=== PATIENT | female | born 1980 | race Caucasian/White ===

== ENCOUNTER 2024-01-19 20:26 | Outpatient (REF) | payer MEDICAID, SELFPAY ==
[2024-01-25 11:09] LABS: Age Gdln ACOG Testing Note (.); HPV Aptima Negative (Negative); IGP, Aptima HPV, rfx 16/18,45 Note (.)
== END 2024-01-19 20:27 | disposition home or self-care (01) ==
LOC: LAB 20:26
PROVIDERS: PCP Family Medicine; Visit Provider Obstetrics & Gynecology
DX: Z01.419 Encounter for gynecological examination (general) (routine) without abnormal findings (principal)
CPT/HCPCS: 87624; G0145

== ENCOUNTER 2025-01-24 21:15 | Outpatient (REF) | payer MEDICAID, SELFPAY ==
--- OUTSIDE RECORDS SUMMARY | 2025-01-24 21:20 | XMS_ITS | CCD ---
Author Organization [facility] Care Team Providers Care Security Operations Manager Name Role Phone Unavailable Primary Care Provider UnavailBeck Sheehan Jr. Primary Care Provider Bill Yusuf Unavailable Yared Pisano Unavailable DO Vanna Tee Primary Care Provider CHRISTOPH Baird Attending Provider [phone] Vanna Tee Primary Care Unavailable Jacki Baird Attending Unavailable Jacki Baird Admitting Unavailable Bill Yusuf Admitting Unavailable Vanna Tee Primary Care Unavailable Bill Yusuf Attending Unavailable Vanna Tee Primary Care Unavailable Bill Yusuf Attending Unavailable Bill Yusuf Admitting Unavailable DR Bryce TEE Primary Care Unavailable GIBRAN VALERIO Admnemo Unavailable GIBRAN VALERIO Attending Unavailable GIBRAN VALERIO Consulting Unavailable NAN VILLAGRAN Consulting Unavailable Beck Tee Jr. Primary Care Provider Jacki Baird CNP Unavailable Jacki Baird CNP Unavailable Randal Ruiz DO, George Robert Primary Care Provi anshul Randal Ruiz DO, George Robert Primary Care Provi anshul Beck Tee DO Primary Care Provider Jacki Baird CNP Unavailable Antoni Palmer Unavailable [phone] YURIY PACK Attending Unavailable BECK TEE JR Primary Care Unavail able JOSE ARMANDO STERLING Admitting Unavailable MAK MARTINEZ Consulting Unavailable BECK TEE JR Primary Care Unavail able DERIC WILSON Referring Unavailable JERED MONTGOMERY Attending Unavailable MAK MARTINEZ Attending Unavailable RANDAL KAY, BECK RUVALCABA Primary Care Unavail able DILMA MONTES Attending Unavailable BECK TEE JR JORDON Referring Unavail able RANDAL KAY, BECK RUVALCABA Primary Care Unavail able RANDAL KAY, BECK RUVALCABA Primary Care Unavail able SADGLENN, MAK Referring Unavailable RANDAL KAY, BECK RUVALCABA Primary Care Unavail able DILMA MONTES Referring Unavailable RANDAL KAY, BECK RUVALCABA Primary Care Unavail able SADGLENN, MAK Referring Unavailable KABOB KAY, BECK RUVALCABA Primary Care Unavail able RANDAL KAY, BECK RUVALCABA Primary Care Unavail able ORLANDO TORRES Attending Unavailable MICHELLE, MAK Referring Unavailable RANDAL KAY, BECK RUVALCABA Primary Care Unavail able SONIA JC Attending Unavailable MICHELLE, MAK Referring Unavailable RANDAL KAY, BECK RUVALCABA Primary Care Unavail able RANDAL KAY, BECK RUVALCABA Primary Care Unavail able MICHELLE, MAK Referring Unavailable RANDAL KAY, BECK RUVALCABA Primary Care Unavail able DILMA MONTES Referring Unavailable RANDAL KAY, BECK RUVALCABA Primary Care Unavail able DILMA MONTES Referring Unavailable RANDAL KAY, BECK RUVALCABA Primary Care Unavail able RANDAL KAY, BECK RUVALCABA Primary Care Unavail able RANDAL KAY, BECK RUVALCABA Primary Care Unavail able MICHELLE, MAK Referring Unavailable RANDAL KAY, BECK RUVALCABA Primary Care Unavail able RANDAL KAY, BECK RUVALCABA Primary Care Unavail able RANDAL KAY, BECK RUVALCABA Primary Care Unavail able MAK MARTINEZ Attending Unavailable MICHELLE, MAK Referring Unavailable RANDAL KAY, BECK RUVALCABA Primary Care Unavail able ARLIN HASTINGS Attending Unavailable MATHIEU PROCTOR Attending Unavailable BECK TEE Attending Unavailable BECK TEE Referring Unavailable BECK TEE Attending Unavailable Medications Current Medications Medication Drug Class(es) Dates Sig (Normalized) Sig (Original) acyclovir 800 mg oral tablet (1 source) Herpesvirus Nucleoside Analog DNA Polymerase Inhibitor, Herpes Simplex Virus Nucleoside Analog DNA Polymerase Inhibitor, Herpes Zoster Virus Nucleoside Analog DNA Polymerase Inhibitor Start: 04-24-2024 take 800 mg by mouth five times daily Acyclovir Active 800 MG PO Five times daily 35 7 April 24, 2024 12:00am space evenly during waking hours budesonide 3 mg delayed release oral capsule (18 sources) Corticosteroid Start: 09-27-2021 take 9 mg by mouth once daily Budesonide Active 9 MG PO Daily September 27, 2021 12:00am Start: 09-11-2021 take 3 capsules by m outh once daily Budesonide 3 MG 3 capsules daiily Orally Once a day for 30 days Aug, Active Comment on above: Take 9 mg by mouth o nce daily. clonazePAM 0.5 mg oral tablet (20 sources) Benzodiazepine Start: End: take 1 tablet by mouth twice daily as needed for anxiety clonazePAM (KlonoPIN) 0.5 MG tablet Indications: Anxiety Take 1 tablet (0.5 mg) by mouth 2 (two) times a day as needed for anxiety for up to 10 days 20 tablet 01/14/2025 01/24/2025 Active Start: 11-01-2024 End: 11-26-2024 take 1 tablet by mouth twice daily as needed for anxiety clonazePAM (KlonoPIN) 0.5 MG tablet Indications: Anxiety Take 1 tablet (0.5 mg) by mouth 2 (two) times a day as needed for anxiety for up to 10 days 20 tablet 11/16/2024 11/26/2024 Active Start: 07-16-2024 End: 10-30-2024 take 1 tablet by mouth twice daily as needed for anxiety clonazePAM (KlonoPIN) 0.5 MG tablet Indications: Anxiety Take 1 tablet (0.5 mg) by mouth 2 (two) times a day as needed for anxiety for up to 10 days 20 tablet 08/20/2024 08/30/2024 Active Start: 04-24-2024 Clonazepam Act gene MG PO April 24, 2024 12:00am Comment on above: Take 0.5 mg by mouth twice daily as needed. cyclobenzaprine hydrochloride 10 mg oral tablet (20 sources) Muscle Relaxant Start: 023 End: 025 take 1 tablet by mouth in the morning, then take 1 tablet by mouth in the evening, then take 1 tablet by mouth at bedtime cyclobenzaprine (Flexeril) 10 MG tablet Indications: Migraine without aura and without status migrainosus, not intractable (CMS/HCC) , Cervicalgia Take 1 tablet (10 mg) by mouth in the morning and 1 tablet (10 mg) in the evening and 1 tablet (10 mg) before bedtime. 40 tablet 1 12/29/2024 Active 24 hr desvenlafaxine succinate 50 mg extended release oral tablet (20 sources) Serotonin and Norepinephrine Reuptake Inhibitor Start: take 2 tablets by mouth once daily desvenlafaxine (Pristiq) 50 MG 24 hr tablet Indications: Anxiety Take 2 tablets (100 mg) by mouth Daily 60 tablet 5 01/07/2025 Active Start: 01-07-2025 take 2 tablets by mo uth once daily desvenlafaxine (Pristiq) 50 MG 24 hr tablet Indications: Anxiety Take 2 tablets (100 mg) by mouth Daily 60 tablet 5 01/07/2025 Active Start: 08-20-2024 End: 08-20-2025 take 1 tablet by mouth once daily desvenlafaxine (Pristiq) 100 MG 24 hr tablet Indications: Anxiety Take 1 tablet (100 mg) by mouth Daily Do not crush, chew, or split. 30 tablet 5 08/20/2024 01/07/2025 Discontinued Start: 04-24-2024 Desvenlafaxine Succinate Active MG PO April 24, 2024 12:00am Start: 04-06-2024 End: 04-06-2025 take 1 tablet by mouth once daily desvenlafaxine (Pristiq) 50 MG 24 hr tablet Take 50 mg by mouth Daily 09/29/2024 01/07/2025 Discontinued ferrous sulfate (16 sources) Start: 09-11-2021 take 1 tablet by monica twice daily Ferrous Sulfate 325 (65 Fe) MG 1 tablet Orally bid for 30 day(s) Aug, Active Start: 09-11-2021 take 1 tablet by monica twice daily FEROSUL 325 mg (65 mg iron) tablet Take 1 tablet by mouth twice daily. 0 09/11/2021 Active Start: 09-11-2021 take 1 tablet by monica th every twelve hours Ferrous Sulfate 325 (65 Fe) MG 1 tablet Orally bid for 30 day(s) Aug, Active Comment on above: Take 1 tablet by monica twice daily. fluticasone propionate 0.05 mg/actuat metered dose nasal spray (20 sources) Corticosteroid Start: End: take 2 spray(s) nasal route once daily fluticasone (Flonase) 50 MCG/ACT nasal spray Indications: Frontal sinusitis, unspecified chronicity Administer 2 sprays into each nostril Daily Shake gently. Before first use, prime pump. After use, clean tip and replace cap. 16 g 11 08/20/2024 08/20/2025 Active Start: 08-13-2023 End: 08-20-2024 take 2 spray(s) nasal route in the morning fluticasone (Flonase) 50 MCG/ACT nasal spray Indications: Frontal sinusitis, unspecified chronicity Administer 2 sprays into each nostril in the morning. Shake gently. Before first use, prime pump. After use, clean tip and replace cap.. 16 g 08/13/2023 08/20/2024 Discontinued (Reorder) hydrOXYzine hydrochloride 25 mg oral tablet (3 sources) Antihistamine Start: 01-07-2025 hydrOXYzine HC l (Atarax) 25 MG tablet Indications: Psychophysiological insomnia Take 1 tablet (25 mg) by mouth in the morning and 1 tablet (25 mg) at noon and 1 tablet (25 mg) in the evening and 1 tablet (25 mg) before bedtime. 50 tablet 3 01/07/2025 Active Start: 01-07-2025 hydrOXYzine HC l (Atarax) 25 MG tablet Indications: Psychophysiological insomnia Take 1 tablet (25 mg) by mouth in the morning and 1 tablet (25 mg) at noon and 1 tablet (25 mg) in the evening and 1 tablet (25 mg) before bedtime. 50 tablet 3 01/07/2025 Active ibuprofen 800 mg oral tablet (20 sources) Nonsteroidal Anti-inflammatory Drug Start: 06-14-2024 take 1 tablet by mouth three times daily as needed for pain ibuprofen 800 MG tablet Indications: Ulcerative colitis with complication, unspecified location (CMS/HCC) , Migraine without aura and without status migrainosus, not intractable (CMS/HCC) , Cervicalgia Take 1 tablet (800 mg) by mouth 3 (three) times a day as needed for mild pain, moderate pain or headaches 40 tablet 1 06/14/2024 Active Start: 04-24-2024 Ibuprofen Acti ve MG PO April 24, 2024 12:00am methylPREDNISolone (4 sources) Corticosteroid Start: 08-20-2024 End: 08-27-2024 methylPREDNISolone (Medrol Dospak) 4 MG tablets Indications: Crohn's disease, unspecified, without complications (CMS/HCC) Follow schedule on package instructions 21 tablet 08/20/2024 08/27/2024 Active Start: 02-28-2019 End: 03-17-2019 take 1 tablet by mouth once Methylprednisolone (Medrol (Ab)) 4 mg tablets,dose pack Discontinued 0 PO per package directions February 28, 2019 12:00am March 17, 2019 12:44pm PO PER PKG DIR ozanimod 0.92 mg oral capsule (5 sources) Start: 05-31-2022 take 1 capsule by mouth every twenty-four hours Zeposia 0.92 MG 1 capsule Orally Once a day for 30 days PA ON FILE FROM 05/21/22 TO 05/21/23 AUTH # [id number] May, Active predniSONE 20 mg oral tablet (20 sources) Start: 10-01-2024 take 1 tablet by monica th in the morning predniSONE (Deltasone) 20 MG tablet Take 20 mg by mouth in the morning and 20 mg before bedtime. 10/01/2024 Active Start: 10-01-2024 End: 10-31-2024 take 2 tablets by mouth once daily after breakfast predniSONE (DELTASONE) 20 mg tablet Take 2 tablets by mouth daily after breakfast. 60 tablet 10/01/2024 10/31/2024 Start: 05-21-2024 End: 09-10-2024 take 2 tablets by mouth once daily predniSONE (DELTASONE) 10 mg tablet Indications: Ulcerative pancolitis without complication (HCC) Take 2 tablets by mouth once daily. 60 tablet 4 09/10/2024 Active Start: 04-24-2024 Prednisone Act gene MG PO April 24, 2024 12:00am Start: 12-23-2023 End: 06-05-2024 take 1 tablet by mouth once daily predniSONE (Deltasone) 10 MG tablet Take 10 mg by mouth Daily 03/11/2024 Active Start: 05-15-2023 End: 08-11-2023 take 6 tablets by mouth once daily, then take 5 tablets by mouth once daily, then take 4 tablets by mouth once daily, then take 3 tablets by mouth once daily, then take 2 tablets by mouth once daily predniSONE (DELTASONE) 5 mg tablet Take 6 tablets by mouth once daily for 7 days, THEN 5 tablets once daily for 7 days, THEN 4 tablets once daily for 60 days, THEN 3 tablets once daily for 7 days, THEN 2 tablets once daily for 7 days. 352 tablet 0 05/15/2023 08/11/2023 Active Start: 04-05-2023 predniSONE (DE LTASONE) 10 mg tablet Take 4 tablets by mouth daily for 7 days, then 3 & 1/2 tablets for 7 days, then 3 tablets or 7 days, then 2 & 1/2 tablets for 7 days, then 2 tablets for 7 days, then 1 & 1/2 tablets for 7 days, then 1 tablet for 7 days, then 1/2 tablet for 7 days, then stop. 136 tablet 0 04/05/2023 Active Start: 08-07-2021 End: 09-27-2021 Prednisone Discontinued 20 M G PO Daily 60 August 07, 2021 12:00am September 27, 2021 8:47am please take 3 tabs for a week then 2 tabs for a week then one tab for a week and then half a tab for a week and then stop Start: 06-05-2019 End: 06-09-2020 take 60 mg by mouth once daily Prednisone Discontinued 60 MG PO Daily June 05, 2019 10:25pm June 09, 2020 4:22pm Start: 03-17-2019 End: 06-05-2019 Prednisone Discontinued 10 M G PO .other 36 March 17, 2019 12:00am June 05, 2019 10:26pm Taper: 8 tabs daily, then 7 tabs, then 6 tabs, then 5 tabs, then 4 tabs, then 3 tabs, then 2 tabs, then 1 tab, then stop Comment on above: Take 4 tablets by mo uth daily for 7 days, then 3 & 1/2 tablets for 7 days, then 3 tablets or 7 days, then 2 & 1/2 tablets for 7 days, then 2 tablets for 7 days, then 1 & 1/2 tablets for 7 days, then 1 tablet for 7 days, then 1/2 tablet for 7 days, then stop. Take 6 tablets by mo uth once daily for 7 days, THEN 5 tablets once daily for 7 days, THEN 4 tablets once daily for 60 days, THEN 3 tablets once daily for 7 days, THEN 2 tablets once daily for 7 days. Take 1 tablet by monica th once daily. risankizumab-rzaa (SKYRIZI) 360 mg/2.4 mL (150 mg/mL) wearable injector (20 sources) Start: 09-06-2024 risankizumab-rzaa (SKYRIZI) 360 mg/2.4 mL (150 mg/mL) wearable injector Indications: Ulcerative pancolitis without complication (HCC) Inject 360 mg subcutaneously every 8 weeks. 2.4 mL 5 09/06/2024 Active Start: 09-06-2024 risankizumab-r zaa (SKYRIZI) 360 mg/2.4 mL (150 mg/mL) wearable injector Indications: Ulcerative pancolitis without complication (HCC) Inject 360 mg subcutaneously every 8 weeks. First dose at week 12, then every 8 weeks after that. 2.4 mL 5 09/06/2024 Active Risankizumab-rzaa (Skyrizi) 360 MG/2.4ML solution cartridge (11 sources) Start: 09-06-2024 Risankizumab-r zaa (Skyrizi) 360 MG/2.4ML solution cartridge Inject 360 mg under the skin every 8 (eight) weeks 09/06/2024 Active ubrogepant 100 mg oral tablet (20 sources) Start: 03-21-2023 End: 05-21-2024 Ubrogepant (Ubrelvy) 100 MG tablet Indications: Migraine without aura and without status migrainosus, not intractable (CMS/HCC) Take 1 tablet by mouth 1 (one) time each day at the same time 1 tab may take second dose at least 2 hrs after first dose as needed 12/12/2023 Active Comment on above: TAKE 1 TABLET BY MONICA TH MAY TAKE 2ND DOSE AT LEAST 2 HOURS AFTER NEEDED ONCE DAILY 1 ml ustekinumab 90 mg/ml prefilled syringe (13 sources) Interleukin-12 Antagonist, Interleukin-23 Antagonist Start: 11-20-2021 Stelara 90 MG/ML INJ ECT 90 MG Subcutaneous EVERY 56 DAYS for 56 days PRIOR AUTH NUMBER [id number] GOOD UNTIL 11/15/22 Oct, Active Start: 11-20-2021 STELARA 90 mg/ mL injection Start: 10-15-2021 End: 04-24-2024 Ustekinumab (Stelara) 45 mg/ 0.5 mL Solution Discontinued 90 MG SUBCUT EVERY 8 WEEKS October 15, 2021 1:00am April 24, 2024 1:34pm valGANciclovir 450 mg oral tablet (4 sources) Start: 11-03-2024 End: 12-01-2024 take 2 tablets by mouth twice daily valGANciclovir (VALCYTE) 450 mg tablet Take 2 tablets by mouth two times a day for 28 days. 56 tablet 1 11/03/2024 12/01/2024 Active Start: 10-08-2024 End: 10-22-2024 take 2 tablets by mouth twice daily valGANciclovir (VALCYTE) 450 mg tablet Indications: CMV colitis (HCC) Take 2 tablets by mouth two times a day for 14 days. 56 tablet 10/08/2024 10/22/2024 vancomycin oral liquid 25 mg/mL (CPD) (2 sources) Start: 04-03-2023 End: 04-16-2023 take 5 mL by mouth four times daily vancomycin oral liquid 25 mg/mL (CPD) Take 5 mL by mouth four times daily for 11 days. Discard remainder 240 mL 0 04/03/2023 04/16/2023 Active Comment on above: Take 5 mL by mouth f our times daily for 11 days. Discard remainder Completed/Discontinued Medications Medication Drug Class(es) Dates Sig (Normalized) Sig (Original) acetaminophen 325 mg oral tablet (5 sources) Start: 12-03-2024 End: 12-03-2024 take 1 dose by mouth once 650 mg, ORAL, ONCE, 1 dose, On Fri12/03/24 at 1430 Start: 11-05-2024 End: 11-05-2024 take 1 dose by mouth once 650 mg, ORAL, ONCE, 1 dose, On Fri11/05/24 at 1430 Start: 10-05-2024 End: 10-05-2024 take 1 dose by mouth once 650 mg, ORAL, ONCE, 1 dose, On Fri10/05/24 at 1430 Start: 03-17-2019 End: 06-05-2019 take 650 mg by mouth every six hours Acetaminophen Discontinued 650 MG PO Q6H 0 March 17, 2019 12:00am June 05, 2019 10:25pm 0.4 ml adalimumab 100 mg/ml auto-injector (2 sources) Tumor Necrosis Factor Trell Start: 06-05-2019 End: 06-09-2019 Adalimumab (Humira Pen) 40 mg/0.4 mL pen injector kit Discontinued 40 MG SUBCUT EVERY 2 WEEKS June 05, 2019 12:00am June 09, 2019 12:15pm azaTHIOprine 50 mg oral tablet (9 sources) Purine Antimetabolite Start: 12-12-2023 End: 05-21-2024 take 1 tablet by mouth once daily, then take 2 tablets by mouth once daily azaTHIOprine (IMURAN) 50 mg tablet Take 1 tablet by mouth once daily for 30 days, THEN 2 tablets once daily. 150 tablet 0 12/12/2023 05/21/2024 Discontinued (Side Effects) Start: 06-05-2019 End: 06-09-2020 take 1 tablet by mouth once daily Azathioprine (Imuran) 50 mg Tablet Discontinued 50 MG PO Daily June 05, 2019 12:00am June 09, 2020 4:24pm Comment on above: Take 1 tablet by monica th once daily for 30 days, THEN 2 tablets once daily. dicyclomine hydrochloride 20 mg oral tablet (3 sources) Anticholinergic Start: 09-27-20 End: 10-15-20 take 20 mg by mouth three times daily Dicyclomine Discontinued 20 MG PO Three times daily September 27, 2021 12:00am October 15, 2021 7:58am Comment on above: take 1 tablet by monica th three times a day if needed for ABDOMINMAL DISCOMFORT Escitalopram (19 sources) Serotonin Reuptake Inhibitor End: 09-17-20 escitalopram oxalate (LEXAPRO ORAL) Take 40 mg by mouth. 09/17/2024 Discontinued escitalopram oxa late (LEXAPRO ORAL) Take 40 mg by mouth. Active escitalopram oxa late (LEXAPRO ORAL) Take 40 mg by mouth. 0 Active Comment on above: Take 40 mg by mouth. ferrous fumarate 325 mg oral tablet (3 sources) Start: 09-10-2021 take 1 tablet by mouth twice daily FERRETTS 325 mg (106 mg iron) tab Take 1 tablet by mouth twice daily. 0 09/10/2021 Active Start: 09-08-2021 take 324 mg by mouth twice kayleen ly Ferrous Fumarate Active 324 MG PO Twice daily September 08, 2021 12:00am Comment on above: Take 1 tablet by monica th twice daily. furosemide 20 mg oral tablet (2 sources) Loop Diuretic Start: 9 End: 0 take 2 tablets by mouth once daily as needed for edema, then take 1 tablet by mouth once daily as needed for edema Furosemide Discontinued 20 MG PO Daily June 09, 2019 12:00am June 09, 2020 4:24pm take 2 tabs daily for 5 days (06/10-06/14). Then take 1 tab as needed daily for increased edema along with increased weight. 12 hr hyoscyamine sulfate 0.375 mg extended release oral tablet (2 sources) Start: 1 take 0.375 mg by mouth every twelve hours hyoscyamine SR (LEVBID) 0.375 mg 12 hr tablet Take 0.375 mg by mouth q 12 HR. 0 10/09/2021 Active Start: 09-11-2021 take 1 tablet by monica th every twelve hours Hyoscyamine Sulfate ER 0.375 MG 1 tablet Orally every 12 hrs for 30 day(s) Aug, Active Comment on above: Take 0.375 mg by monica th q 12 HR. 5 ml iron sucrose 20 mg/ml injection (5 sources) Parenteral Iron Replacement Start: 10-22-2024 End: 10-22-2024 200 mg, INTRAVENOUS, ONCE, 1 dose, On Fri10/22/24 at 1600, Please conduct a 30 minute post dose observation. Start: 10-11-2024 End: 10-11-2024 200 mg, INTRAVENOUS, ONCE, 1 dose, On Fri10/11/24 at 1600, Please conduct a 30 minute post dose observation. Start: 10-05-2024 End: 10-05-2024 200 mg, INTRAVENOUS, ONCE, 1 dose, On Fri10/05/24 at 1500, Please conduct a 30 minute post dose observation. Start: 10-01-2024 End: 10-01-2024 200 mg, INTRAVENOUS, ONCE, 1 dose, On Fri10/01/24 at 1430, Please conduct a 30 minute post dose observation. Start: 09-24-2024 End: 09-24-2024 200 mg, INTRAVENOUS, ONCE, 1 dose, On Fri09/24/24 at 1600, Please conduct a 30 minute post dose observation. mesalamine 400 mg delayed release oral capsule (2 sources) Aminosalicylate Start: 02-28-2019 End: 03-12-2019 Mesalamine (Delzicol) 400 mg capsule (with del rel tablets) Discontinued February 28, 2019 12:00am March 12, 2019 6:39pm metroNIDAZOLE 500 mg oral tablet (7 sources) Nitroimidazole Antimicrobial Start: 01-09-2024 End: 05-21-2024 take 1 tablet by mouth three times daily metroNIDAZOLE (FLAGYL) 500 mg tablet Indications: Ulcerative colitis with complication, unspecified location (HCC) Take 1 tablet by mouth three times a day. Take 1 tablet at 6pm, 7pm, and 11pm, the evening prior to surgery. 3 tablet 0 01/09/2024 05/21/2024 Discontinued (Course of therapy completed) Start: 09-19-2021 metroNIDAZOLE 1 % gel Apply to affected area once daily. APPLY TO AFFECTED AREA 0 09/19/2021 Active Comment on above: Apply to affected ar ea once daily. APPLY TO AFFECTED AREA Take 1 tablet by [facility] three times a day. Take 1 tablet at 6pm, 7pm, and 11pm, the evening prior to surgery. neomycin sulfate 500 mg oral tablet (6 sources) Aminoglycoside Antibacterial Start: 024 End: 024 neomycin 500 mg tablet Indications: Ulcerative colitis with complication, unspecified location (HCC) Take 2 tablets by mouth as directed. Take 2 tablet at 6pm, 7pm, and 11pm the evening prior to surgery. 6 tablet 0 01/09/2024 05/21/2024 Discontinued (Course of therapy completed) Comment on above: Take 2 tablets by mo [facility] as directed. Take 2 tablet at 6pm, 7pm, and 11pm the evening prior to surgery. 24 hr nicotine 0.583 mg/hr transdermal system (1 source) Cholinergic Nicotinic Agonist Start: 023 End: 023 apply 1 dose transdermal route once daily nicotine (NICODERM) 14 mg/24 hr Apply 1 Patch as directed once daily. 5 Patch 0 04/06/2023 04/07/2023 Discontinued (Other) Comment on above: Apply 1 Patch as dir ected once daily. VITAMIN TAB (1 source) Start: 006 VITAMIN TAB Take one(1) tablet daily. 0 06/13/2006 Active Comment on above: Take one(1) tablet d aily. rho(d) immune globulin, human 1500 unt prefilled syringe (1 source) Human Immunoglobulin G Start: 006 RHOGAM (HUMAN) 300 MCG IM SYRINGE Indications: Rhesus isoimmunization affecting management of mother, antepartum condition give today 1 0 06/13/2006 Active Comment on above: give today risankizumab-rzaa 1,200 mg in D5W 250 mL (SKYRIZI) (3 sources) Start: 025 End: 025 1,200 mg, INTRAVENOUS, Administer over 2 Hours, ONCE, 1 dose, On Fri12/03/24 at 1430, Approx Total Volume: EXP : 12/03/2024 1830 RT Refrigerate. Protect From Light. Allow to warm to room temperature prior to start of infusion. Start: 11-05-2024 End: 11-05-2024 1,200 mg, INTRAVENOUS, Admin ister over 2 Hours, ONCE, 1 dose, On Fri11/05/24 at 1430, Approx Total Volume: EXP: 11/05/2024 1820 RT Refrigerate. Protect From Light. Allow to warm to room temperature prior to start of infusion. Start: 10-05-2024 End: 10-05-2024 1,200 mg, INTRAVENOUS, Admin ister over 2 Hours, ONCE, 1 dose, On Fri10/05/24 at 1500, Approx Total Volume: EXP: 10/05/2024 1645 RT Refrigerate. Protect From Light. Allow to warm to room temperature prior to start of infusion. traMADol hydrochloride 50 mg oral tablet (2 sources) Opioid Agonist Start: 03-17-2019 End: 06-05-2019 take 50 mg by mouth twice daily Tramadol Discontinued 50 MG PO Twice daily 09 04March 17, 2019 12:00am June 05, 2019 10:25pm vancomycin 50 mg/ml oral solution (2 sources) Glycopeptide Antibacterial Start: 03-17-2019 End: 06-05-2019 Vancomycin (Firvanq) 50 mg/mL Recon Soln Discontinued 125 MG PO Four times daily 70 7 March 17, 2019 12:00am June 05, 2019 10:25pm vedolizumab 300 mg injection (2 sources) Integrin Receptor Antagonist Start: 06-09-2020 End: 2021 Vedolizumab (Entyvio) 300 mg Recon Soln Discontinued 300 MG IV EVERY 8 WEEKS June 09, 2020 12:00am 2021 1:21am Problems Active Problems Problem Classification Problem Date Documented Da te Episodic/Chronic Abdominal pain (18 sources) Abdominal pain; Translations: [Unspecified abdominal pain] Onset: 4 03-13-2019 Episodic Acute and chronic tonsillitis (15 sources) Amygdalolith; Translations: [Other chronic diseases of tonsils and adenoids] Chronic Acute posthemorrhagic anemia (2 sources) Acute posthemorrhagic anemia; Translations: [Acute posthemorrhagic anemia] 03-14-2019 Episodic Anxiety disorders (20 sources) Anxiety; Translations: [Anxiety disorder, unspecified] Onset: 0 04-03-2023 Chronic Bacterial infection; unspecified site (1 source) Recurrent Clostridium difficile infection; Translations: [Other bacterial infections of unspecified site] Episodic Deficiency and other anemia (20 sources) Iron deficiency anemia due to blood loss; Translations: [Iron deficiency anemia secondary to blood loss (chronic)] Onset: 2 Chronic Deficiency and other anemia (2 sources) Iron deficiency anemia secondary to blood loss (chronic); Translations: [Iron deficiency anemia due to chronic blood loss D50.0] Onset: 1 Resolved: 1 Chronic Deficiency and other anemia (14 sources) Iron deficiency anemia; Translations: [Iron deficiency anemia, unspecified] Episodic Deficiency and other anemia (2 sources) Anemia; Translations: [Anemia, unspecified] 03-13-2019 Episodic Fever of unknown origin (4 sources) Fever; Translations: [Fever, unspecified] 06-07-2019 Episodic Fluid and electrolyte disorders (16 sources) Hypokalemia; Translations: [Hypokalemia] Onset: 4 09-29-2024 Episodic Gastrointestinal hemorrhage (3 sources) Gastrointestinal hemorrhage; Translations: [Gastrointestinal hemorrhage, unspecified] Onset: 4 03-13-2019 Episodic Headache; including migraine (20 sources) Migraine; Translations: [Migraine, unspecified, not intractable, without status migrainosus] Onset: 3 04-03-2023 Chronic Intestinal infection (20 sources) Clostridium difficile colitis; Translations: [Enterocolitis due to Clostridium difficile, not specified as recurrent] Onset: 3 04-03-2023 Episodic Miscellaneous mental health disorders (2 sources) Psychophysiologic insomnia; Translations: [Psychophysiologic insomnia] 01-07-2025 Chronic Mood disorders (19 sources) Depressive disorder; Translations: [Depression] 08-20-2024 Chronic Nausea and vomiting (20 sources) Nausea and vomiting; Translations: [Nausea with vomiting, unspecified] 06-07-2019 Episodic Neoplasms of unspecified nature or uncertain behavior (16 sources) Thrombocytosis; Translations: [Thrombocytosis] Onset: 4 09-29-2024 Episodic Noninfectious gastroenteritis (15 sources) Colitis; Translations: [Noninfective gastroenteritis and colitis, unspecified] Episodic Other aftercare (2 sources) Long-term current use of drug therapy; Translations: [intermodal customer service (current) use of immunomodulator] 12-12-2023 Episodic Other aftercare (1 source) Long-term current use of systemic steroid; Translations: [FPC (current) use of systemic steroids] 05-21-2024 Episodic Other congenital anomalies (19 sources) Keratoderma; Translations: [Other specified congenital malformations of skin] Onset: 3 08-13-2023 Chronic Other gastrointestinal disorders (16 sources) Hemorrhagic diarrhea ; Translations: [Diarrhea, unspecified] 09-28-2024 Episodic Other gastrointestinal disorders (2 sources) Bacterial growth present; Translations: [Other fecal abnormalities] 06-07-2019 Episodic Other gastrointestinal disorders (3 sources) Diarrhea, unspecified; Translations: [DIARRHEA UNSPECIFIED] Onset: 3 Episodic Other infections; including parasitic (1 source) Personal history of other infectious and parasitic diseases; Translations: [History of Clostridioides difficile colitis] Onset: 4 Episodic Other inflammatory condition of skin (2 sources) Erythema nodosum; Translations: [Erythema nodosum] 06-06-2019 Episodic Other nutritional; endocrine; and metabolic disorders (19 sources) Hypoproteinemia; Translations: [Other disorders of glycoprotein metabolism] Onset: 3 08-13-2023 Chronic Other nutritional; endocrine; and metabolic disorders (16 sources) Obesity; Translations: [Obesity, unspecified] Onset: 4 09-29-2024 Chronic Other nutritional; endocrine; and metabolic disorders (16 sources) Obese class I; Translations: [Obesity, Class I, BMI 30-34.9] Onset: 4 10-01-2024 Chronic Other nutritional; endocrine; and metabolic disorders (2 sources) Decrease in appetite; Translations: [Anorexia] 06-07-2019 Episodic Other upper respiratory infections (2 sources) Frontal sinusitis; Translations: [Chronic frontal sinusitis] 08-20-2024 Chronic Other upper respiratory infections (3 sources) Upper respiratory infection; Translations: [Acute upper respiratory infection, unspecified] Onset: 2 09-08-2021 Episodic Regional enteritis and ulcerative colitis (20 sources) Ulcerative colitis; Translations: [Ulcerative colitis, unspecified, without complications] Onset: 1 Resolved: 2 Chronic Residual codes; unclassified (1 source) Appointment canceled by hospital; Translations: [Procedure and treatment not carried out for other reasons] Episodic Substance-related disorders (20 sources) Nicotine dependence; Translations: [Nicotine dependence, unspecified, uncomplicated] Onset: 3 04-03-2023 Chronic Unclassified (1 source) K51.00 - Ulcerative (chronic) pancolitis without complications; Translations: [K51.00 - Ulcerative (chronic) pancolitis without complications] Onset: 2 Unclassified (1 source) Z79.899 - Other detention (current) drug therapy; Translations: [Z79.899 - Other exterminator helper (current) drug therapy] Onset: 2 Unclassified (1 source) CONTACT W/AND (SUSP) EXPOS COVID-19; Translations: [CONTACT W/AND (SUSP) EXPOS COVID-19] Onset: 3 Unclassified (1 source) intermodal customer service (current) use of immunomodulator; Translations: [intermodal customer service (current) use of immunomodulator] Onset: 4 Viral infection (4 sources) Viral infection, unspecified; Translations: [Herpes zoster] Onset: 04-24-2024 Episodic Past or Other Problems Problem Classification Problem Date Documented Da te Episodic/Chronic Malaise and fatigue (3 sources) Malaise and fatigue; Translations: [Other malaise] Onset: 09-17-2024 09-17-2024 Episodic Other aftercare (2 sources) Other exterminator helper (current) drug therapy Onset: 05-07-2022 Resolved: 07-31-2022 Episodic Residual codes; unclassified (20 sources) Nicotine-filled electronic cigarette user; Translations: [Tobacco use] Onset: 03-31-2023 04-03-2023 Episodic Spondylosis; intervertebral disc disorders; other back problems (20 sources) Chronic neck pain; Translations: [Cervicalgia] Onset: 03-31-2023 04-03-2023 Episodic Results Test Name Value Interpretation Reference Range Facility ANES POSTPROC EVALon 025 ANES POSTPROC EVAL HNO ID: [id number] Author: ALEXSANDRA LEHMAN APRN.CRNA Service: Anesthesiology Author Type: Nurse Industrial Automation Specialist Type: Anesthesia Postprocedure Evaluation Filed: 12/17/2024 11:47 Note Text: POST ANESTHESIA EVALUATION NOTE : 1980 Procedure Summary Date: 12/17/24 Room / Location: Ambulatory Surgery Anesthesia Start: 1053 Anesthesia Stop: 110 Procedure: SIGMOIDOSCOPY 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 Anticipated Disposition: phase 2 then home. Neurological Status: aware and responsive. Pulmonary Status: breathing comfortably on room air Airway Control: returned to baseline unsupported. Cardiovascular Status: stable. Pain Management: clinically adequate Postoperative Hydration: acceptable. Intraoperative Events: no significant anesthesia events Post Operative Nausea/Vomiting Status: no significant post operative nausea or vomiting Recommendation: continue current plan of care. Anesthesia Observations No Documentation SIGNATURE: Alexsandra Lehman APRN.CRNA PATIENT NAME: Angela Elam DATE: December 17, 2024 TIME: 11:47 AM CSN: [id number] Normal [facility] ANES PRE-OPon 12-17-2024 ANES PRE-OP HNO ID: [id number] Author: ALEXSANDRA LEHMAN APRN.CRNA Service: Anesthesiology Author Type: Nurse Industrial Automation Specialist Type: Anesthesia Preprocedure Evaluation Filed: 12/17/2024 10:53 Note Text: ANESTHESIOLOGY DAY OF SURGERY NOTE : 1980 Procedure Information Date/Time: 12/17/24 1000 Scheduled providers: Mak Martinez MD; Marlene Garcia RN Procedure: SIGMOIDOSCOPY Location: Ambulatory Surgery Estimated body mass index is 33.29 kg/m? as calculated from the following: Height as of 09/29/24: 167.6 cm (5' 5.98 ). Weight as of 09/29/24: 93.5 kg (206 lb 2.1 oz). Most recent hematocrit and potassium results: Hematocrit 39.2 12/03/2024 Potassium 4.0 10/09/2024 Relevant Problems CARDIO (+) Migraines NEURO-PSYCH (+) Migraines Gastrointestinal (+) Ulcerative colitis with rectal bleeding (HCC) Hematology (+) Iron deficiency anemia due to chronic blood loss Other (+) Nicotine use disorder, F17.2 I - PHYSICAL EVALUATION AIRWAY Patient intubated: No. Tracheostomy tube not present Mallampati: I. TM distance: >3 FB. Neck ROM: full ROM without neurological symptoms. Mouth opening: adequate. DENTAL Dental findings: teeth intact. Additional exam findings: no II - ANESTHESIA PLAN ASA Score: 2 Anesthetic Plan: MAC The patient is not a current smoker. NPO Status: adequate Beta Trell Monitoring Plan Monitoring plan: standard ASA. Post Procedure Analgesic Plan Postoperative analgesic plan: per surgical service. Informed Consent Anesthetic risks, benefits, alternatives, personnel and consent discussed: yes. Patient / Responsible Alliance Party agrees to proceed: yes Patient / Surrogate agrees to blood products: blood products not planned DNR status not reviewed with patient and/or family prior to surgery. Significant changes in the patient condition since the History and Physical, not otherwise documented in primary service progress note: no. Potential Anesthesia issues that may suggest increased risk of complications or contraindication to planned procedure: none. No vitals data found for the desired time range. Outpatient Medications as of 12/17/2024 Medication Sig risankizumab-rzaa (SKYRIZI) 360 mg/2.4 mL (150 mg/mL) wearable injector Inject 360 mg subcutaneously every 8 weeks. clonazePAM (KLONOPIN) 0.5 mg tablet Take 0.5 mg by mouth two times a day as needed for anxiety. No current facility-administered medications on file as of 12/17/2024. I have interviewed and examined the patient. I have reviewed the medical record and/or the pre-anesthesia evaluation, pertinent labs, and test results. This contains updated information obtained within 48 hours of Surgery/Procedure. 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 Refer to note in patient chart for documentation of history and physical. Referring Physician: Mak Martinez MD (Referring MD), Gretta Tee Jr, DO (Referring ) Medicines: Monitored Anesthesia Care Complications: No immediate complications. Requesting Provider: Procedure: Pre-Anesthesia Assessment: - Prior to the procedure, a History and Physical was performed, and patient medications and allergies were reviewed. The patient's tolerance of previous anesthesia was also reviewed. The risks and benefits of the procedure and the sedation options and risks were discussed with the patient. All questions were answered, and informed consent was obtained. Prior Anticoagulants: The patient has taken no anticoagulant or antiplatelet agents. ASA Grade Assessment: III - A patient with severe systemic disease. After reviewing the risks and benefits, the patient was deemed in satisfactory condition to undergo the procedure. After obtaining informed consent, the scope was passed under direct vision. The Colonoscope was introduced through the anus and advanced to the sigmoid colon. I was present and participated during the entire procedure, including non-garcia portions, and during the administration and monitoring of Moderate Sedation. The flexible sigmoidoscopy was accomplished without difficulty. The patient tolerated the procedure well. The quality of the bowel preparation was adequate. Moderate Sedation: MAC anesthesia was administered by the anesthesia team. Findings: A severe stenosis measuring of unknown length x 8 mm (inner diameter) was found in the sigmoid colon (25 cm from the anal verge) and was non-traversed with an ultrathin colonoscope. Biopsies were taken with a cold forceps for histology. Verification of patient identification for the specimen was done by the physician and nurse. The pathology specimen was placed into Bottle A. Scattered mild inflammation characterized by erythema, loss of vascularity, mucus and pseudopolyps was found in the rectum and in the sigmoid colon. Inflammation appears improved compared to the last sigmoidoscopy. Biopsies were taken with a cold forceps for histology. Verification of patient identification for the specimen was done by the physician and nurse. The pathology specimen was placed into Bottle B. Non-bleeding internal hemorrhoids were found during retroflexion and during digital exam. The hemorrhoids were small and Grade I (internal hemorrhoids that do not prolapse). The exam was otherwise without abnormality. Impression: - Severe, non-traversible stricture in the sigmoid colon. Biopsied. - Mild scattered inflammation found in the rectum and in the sigmoid colon secondary to inflammatory bowel disease. Biopsied. - Small internal hemorrhoids. - The examination was otherwise normal. Recommendation: - Patient has a contact number available for emergencies. The signs and symptoms of potential delayed complications were discussed with the patient. Return to normal activities tomorrow. Written discharge instructions were provided to the patient. - Soft diet. - Continue present medications. - Await pathology results. - Refer to a colo-rectal surgeon at the next available appointment. - The findings and recommendations were discussed with the patient. Scope In: 10:56:45 AM Scope Out: 11:04:38 AM MD Mak Rolon MD 12/17/2024 11:13:10 AM This report has been signed electronically by Mak Martinez MD Number of Addenda: 0 Note Initiated On: 12/17/2024 10:53 AM Estimated Blood Loss: Estimated blood loss was minimal. Normal [facility] Flexible sigmoidoscopy study on 12-17-2024 [facility] Gastrointestinal Endoscopy Patient Name: Angela Elam Procedure Date: 12/17/2024 10:53 AM Date of : 1980 Admit Type: Outpatient Age: 44 Room: [place] [address] Gender: Female Note Status: Finalized Attending MD: Mak Martinez MD, [id number] Procedure: Flexible Sigmoidoscopy Indications: Suspected Crohn's disease of the colon, 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 Refer to note in patient chart for documentation of history and physical. Referring Physician: Mak Martinez MD (Referring MD) Medicines: Monitored Anesthesia Care Complications: No immediate complications. Requesting Provider: Procedure: Pre-Anesthesia Assessment: - Prior to the procedure, a History and Physical was performed, and patient medications and allergies were reviewed. The patient's tolerance of previous anesthesia was also reviewed. The risks and benefits of the procedure and the sedation options and risks were discussed with the patient. All questions were answered, and informed consent was obtained. Prior Anticoagulants: The patient has taken no anticoagulant or antiplatelet agents. ASA Grade Assessment: III - A patient with severe systemic disease. After reviewing the risks and benefits, the patient was deemed in satisfactory condition to undergo the procedure. After obtaining informed consent, the scope was passed under direct vision. The Colonoscope was introduced through the anus and advanced to the sigmoid colon. I was present and participated during the entire procedure, including non-garcia portions, and during the administration and monitoring of Moderate Sedation. The flexible sigmoidoscopy was accomplished without difficulty. The patient tolerated the procedure well. The quality of the bowel preparation was adequate. Moderate Sedation: MAC anesthesia was administered by the anesthesia team. Findings: A severe stenosis measuring of unknown length x 8 mm (inner diameter) was found in the sigmoid colon (25 cm from the anal verge) and was non-traversed with an ultrathin colonoscope. Biopsies were taken with a cold forceps for histology. Verification of patient identification for the specimen was done by the physician and nurse. The pathology specimen was placed into Bottle A. Scattered mild inflammation characterized by erythema, loss of vascularity, mucus and pseudopolyps was found in the rectum and in the sigmoid colon. Inflammation appears improved compared to the last sigmoidoscopy. Biopsies were taken with a cold forceps for histology. Verification of patient identification for the specimen was done by the physician and nurse. The pathology specimen was placed into Bottle B. Non-bleeding internal hemorrhoids were found during retroflexion and during digital exam. The hemorrhoids were small and Grade I (internal hemorrhoids that do not prolapse). The exam was otherwise without abnormality. Impression: - Severe, non-traversible stricture in the sigmoid colon. Biopsied. - Mild scattered inflammation found in the rectum and in the sigmoid colon secondary to inflammatory bowel disease. Biopsied. - Small internal hemorrhoids. - The examination was otherwise normal. Recommendation: - Patient has a contact number available for emergencies. The signs and symptoms of potential delayed complications were discussed with the patient. Return to normal activities tomorrow. Written discharge instructions were provided to the patient. - Soft diet. - Continue present medications. - Await pathology results. - Refer to a colo-rectal surgeon at the next available appointment. - The findings and re (more content not included)... [employer] Radiology Study observation (narrative) [facility] HISTORY PHYSICALon HISTORY PHYSICAL HNO ID: [id number] Author: MAK MARTINEZ MD Service: Gastroenterology Author Type: Physician Type: H&P Filed: 12/17/2024 10:55 Note Text: HISTORY AND PHYSICAL Angela Elam, 44 year old female who presents for surveillance sigmoidoscopy. She was recently diagnosed with CMV colitis and completed 2 weeks of valganciclovir. Indication for procedure: CMV colitis PROCEDURE(S) SCHEDULED FOR: Sigmoidoscopy (Rigid or flexible), with or without biopsies, removal of polyps or lesions,dilation (any means), treatment of bleeding (any means) based on clinical findings. BASELINE BEHAVIOR: Calm BASELINE ORIENTATION: A AND O x3 All medications and allergies reviewed: Yes Skin Assessment: Warm, dry, mucus membranes pink Airway/Respiratory Assessment: Airway: visualization of the uvula - Yes Mouth: opening greater than 2 fingerbreadths - Yes Neck: full range of motion - Yes Breath sounds clear/equal - Yes Cardiac Assessment: RRR Abdominal Assessment: Abdomen soft, non-tender, non-distended, no organomegaly or palpable masses Sedation Plan: COMFORT Martinez MD Staff, Department of Gastroenterology and Hepatology [facility] [place] Normal [facility] NURSING PROGon 12-17-2024 NURSING PROG HNO ID: [id number] Author: PHUONG SANCHES RN Service: Gastroenterology Author Type: Registered Nurse Type: Nursing Progress Note Filed: 12/17/2024 11:09 Note Text: POST OP LEARNING RESPONSE INSTRUCTION PROVIDED TO: Patient and family member METHOD OF INSTRUCTION: Individual instruction Written instruction/Handouts Verbal instruction PATIENT / FAMILY RESPONSE: Information received as demonstrated by interest and questions FOLLOW-UP PLAN: Patient instructed to call with any further issues Recommend - Recommend continued instruction and follow up as directed SUPPLEMENTAL MATERIAL: Post sedation instructions given Procedure discharge instructions REFERRAL (RECOMMENDATION): None Electronically Signed By: Phuong Sanches RN In Department: AMBULATORY SURGERY Normal [facility] NURSING PROG HNO ID: [id number] Author: JASMIN WEBB RN Service: Nursing Author Type: Registered Nurse Type: Nursing Progress Note Filed: 12/17/2024 10:10 Note Text: PRE OP LEARNING ASSESSMENT PROCEDURE/SURGERY: GI PROCEDURES: Flex Sigmoidoscopy READINESS TO LEARN COGNITIVE ABILITY: Alert and oriented MOTIVATION TO LEARN: Eager Interested FAMILY SUPPORT: Unable to assess - Family not present PATIENT LEARNS BEST BY: Individual Instruction Written Instruction - Hand-outs Verbal Instruction FACTORS AFFECTING LEARNING: None PHYSICAL LIMITATIONS AFFECTING LEARNING: None Electronically Signed By: Jasmin Webb RN In Department: AMBULATORY SURGERY Normal [facility] SURGICAL PATHOLOGYon 025 ADDENDUM 1: Normal [facility] Comment on above: Order Comment: Speci men Type: BLOOD SPECIMEN Ordering Facility: [facility] Address: [address] [place] [id number] Result Comment: CMV stains on block B1 and B2 are negative. Laboratory Developed Test (LDT) Disclaimer: Performance characteristics of immunohistochemical, immunofluorescent and chromogenic in-situ hybridization tests have been determined by the performing laboratory within [facility]???s Jordon Cespedes Pathology and Laboratory Medicine Department ([facility], [facility], [facility], [facility], [facility], [facility], or [facility]) in a manner consistent with CLIA requirements. One or more of these tests have not been cleared or approved by the FDA. [facility] is regulated under CLIA as qualified to perform high-complexity testing. These tests are used for clinical purposes. They should not be regarded as investigational or for research. Positive and negative controls stain appropriately. Addendum electronically signed by Alonzo Arriaza MD on 12/24/2024 at 3:04 PM Performed By: #### 5 [id number] #### [facility] CLIA [id number] [address] [place] [address] CASE REPORT Normal [facility] Comment on above: Order Comment: Ayaka farrell Type: BLOOD SPECIMEN Ordering Facility: [facility] Address: [address] [place] [address] Result Comment: Surg ical Pathology Report Case: [id number] Authorizing Provider: Mak Martinez MD Collected: 12/17/2024 10:59 AM Ordering Location: Ambulatory Surgery Received: 12/17/2024 11:41 PM Pathologist: Alonzo Arriaza MD Specimens: A) - Colon, Sigmoid, Biopsy, sigmoid stricture r/o dysplasia B) - Colon, Left, Biopsy, r/o chrons, r/o microscopic colitis Performed By: #### 5 [id number] #### [facility] CLIA [id number] [address] [place] [address] DIAGNOSIS COMMENT Normal [facility] Comment on above: Order Comment: Ayaka farrell Type: BLOOD SPECIMEN Ordering Facility: [facility] Address: [address] [place] [address] Result Comment: Nega tive for dysplasia, all parts. Terminology for ileocolonic biopsies in the setting of established inflammatory bowel disease Activity (neutrophilic inflammation) is based on a modified Delmi score (See References) as follows: Inactive or Quiescent: no neutrophils seen Mild: difficult to see neutrophils Moderate: easy to see neutrophils Severe: ulceration and/or erosion is present Chronic refers to crypt architectural distortion and/or metaplastic changes. References: 1. Theodore Foley et al. Development and validation of the Delmi histological index for UC. Gut. 2017 Dec;66(1):43-49. doi: 10.1136/[id number]. 2. Theodore Foley et al. A practical guide to assess the Delmi histological index for UC. Gut. 2016 Oct;65(11):4628-6031. doi: 10.1136/ucdfqq-[id number]. 3. Cy Gardner et al. [employer] Position on harmonization of Crohn's disease mucosal histopathology, Journal of Crohn's and Colitis, 2021;, [email or web address], [email or web address]. Performed By: #### 5 8410-2 #### BARBI [facility] CLIA [id number] [address] [place] [address] STATES OF [facility] FINAL DIAGNOSIS Normal [facility] Comment on above: Order Comment: Speci men Type: BLOOD SPECIMEN Ordering Facility: [facility] Address: [address] [place] [address] Result Comment: A. S igmoid stricture, biopsy: -Moderate chronic active colitis B. Left colon, biopsy: -Moderate chronic active colitis Performed By: #### 5 8410-2 #### [facility]Karmen [facility] CLIA [id number] [address] [place] [address] OF [facility] FINAL PERFORMING LAB Normal [facility] Comment on above: Order Comment: Speci men Type: BLOOD SPECIMEN Ordering Facility: [facility] Address: [address] [place] [address] Result Comment: Diag nostic interpretation performed at: [facility], [address] [place] [address], [place] [address] CLIA# [id number] Home Security Alarm Installer: Didier Castaneda MD Performed By: #### 5 8410-2 #### [facility])Karmen [facility] CLIA [id number] [address] [place] [address] GROSS DESCRIPTION [facility] [place] Comment on above: Order Comment: Speci men Type: BLOOD SPECIMEN Ordering Facility: [facility] Address: [address] [place] [address] Result Comment: A. C olon, Sigmoid, Biopsy Received in formalin are two pieces of wise, soft tissue aggregating to 0.6 x 0.2 x 0.2 cm. Totally submitted in one cassette. B. Colon, Left, Biopsy Received in formalin are multiple pieces of wise, soft tissue aggregating to 1.1 x 0.5 x 0.1 cm. Totally submitted in two cassettes. DB December 18, 2024 1:05 AM Gross examination performed at [facility], [address] [place] [address], [place] [address] Performed By: #### 5 8410-2 #### DORIST [facility] CLIA [id number] [address] [place] [address] CNPKrystal 12-06-2024 CNPN Telephone (HEMASA) ANGELA ELAM ([id number]) 1980 F Date Time Provider Department 12/06/24 DILMA MONTES HEMASA During your visit today, we recorded the following information about you: Adri Aquino MA 12/06/2024 2:[address] labs if needed for appt on 12/10. Adri Aquino MA Allergies As of Date: 12/06/2024 (No Known Allergies) Date Reviewed: 12/06/2024 Reviewed by: Dilma Montes, PAErnie - Fully Assessed Reason for Visit: Lab Orders [1688] Primary Visit Diagnosis:Iron deficiency anemia due to chronic blood loss [D50.0] Order(s):COMPREHENSIVE METABOLIC PANEL [SQCMP] Order #: [id number] FUTURE IRON AND TIBC [SQIRON] Order #: [id number] FUTURE COMPLETE BLOOD COUNT AND DIFFERENTIAL [SQCBCDIF] Order #: [id number] FUTURE FERRITIN [SQFERR] Order #: [id number] FUTURE Prescriptions as of 12/13/2024 - risankizumab-rzaa (SKYRIZI) 360 mg/2.4 mL (150 mg/mL) wearable injector Inject 360 mg subcutaneously every 8 weeks. First dose at week 12, then every 8 weeks after that. - clonazePAM (KLONOPIN) 0.5 mg tablet Take 0.5 mg by mouth two times a day as needed for anxiety. Problem List As Of Date 12/06/2024 Noted Resolved Iron deficiency anemia due to chronic blood los*12/25/2021 Ulcerative pancolitis without complication (HCC*03/31/2023 Anxiety [F41.9] 05/19/2020 Vapes nicotine containing substance [Z72.0] 03/31/2023 Migraines [G43.909] 03/31/2023 Chronic neck pain [M54.2, G89.29] 03/31/2023 C. difficile colitis [A04.72] 03/31/2023 Nicotine use disorder, F17.2 [F17.200] 03/31/2023 Clostridium difficile colitis [A04.72] 04/01/2023 Hypokalemia [E87.6] 09/29/2024 Obesity [E66.9] 09/29/2024 Ulcerative colitis with rectal bleeding (HCC) [*09/29/2024 Thrombocytosis [D75.839] 09/29/2024 Obesity, Class I, BMI 30-34.9 [E66.811] 10/01/2024 Encounter Status:Closed by ADRI AQUINO on 12/13/24 Normal [facility] CBC panel Auto (Bld)on 12-03 Erythrocyte distribution width (RBC) [Ratio] 19.1 % High 11.5 - 15.0 % [facility] Hematocrit (Bld) [Volume fraction] 39.2 % 36.0 - 46.0 % [facility] Hemoglobin (Bld) [Mass/Vol] 12.6 g/dL 11.5 - 15.5 g/dL [facility] Interpretation and review of laboratory results Abnormal [facility] MCH (RBC) [Entitic mass] 27.5 pg 26.0 - 34.0 pg [facility] MCHC (RBC) [Mass/Vol] 32.1 g/dL 30.5 - 36.0 g/dL [facility] MCV (RBC) [Entitic vol] 85.4 fL 80.0 - 100.0 fL [facility] Nucleated RBC (Bld) [#/Vol] NINF [facility] Platelet mean volume (Bld) [Entitic vol] 8.8 fL Low 9.0 - 12.7 fL [facility] Platelets (Bld) [#/Vol] 323 10*3/uL [facility] RBC (Bld) [#/Vol] 4.59 10*6/uL 3.90 - 5.2 0 m/uL [facility] WBC (Bld) [#/Vol] 8.81 10*3/uL [facility] Erythrocyte distribution width (RBC) [Ratio] 19.1 % High 11.5-15.0 [facility] Comment on above: Order Comment: Speci men Type: BLOOD SPECIMENOrdering Facility: [facility] Address: [address] [place] [address] Performed By: #### 5 8410-2 ####[facility] LABCLIA [id number] [place] [address] Hematocrit (Bld) [Volume fraction] 39.2 % Normal 36.0-46.0 [facility] Comment on above: Order Comment: Speci men Type: BLOOD SPECIMENOrdering Facility: [facility] Address: [address] [place] [address] Performed By: #### 5 8410-2 ####[facility] LABCLIA [id number] [place] [address] Hemoglobin (Bld) [Mass/Vol] 12.6 g/dL Normal 11.5-15.5 [facility] Comment on above: Order Comment: Speci men Type: BLOOD SPECIMENOrdering Facility: [facility] Address: [address] [place] [address] Performed By: #### 5 8410-2 ####[facility] LABCLIA [id number] [place] [address] MCH (RBC) [Entitic mass] 27.5 pg Normal 26.0-34.0 [facility] Comment on above: Order Comment: Speci men Type: BLOOD SPECIMENOrdering Facility: [facility] Address: [address] [place] [address] Performed By: #### 5 8410-2 ####[facility] LABCLIA [id number] [place] [address] MCHC (RBC) [Mass/Vol] 32.1 g/dL Normal 30.5-36.0 [facility] Comment on above: Order Comment: Speci men Type: BLOOD SPECIMENOrdering Facility: [facility] Address: [address] [place] [address] Performed By: #### 5 8410-2 ####[facility] LABCLIA [id number] [place] [address] MCV (RBC) [Entitic vol] 85.4 fL Normal 80.0-100.0 [facility] Comment on above: Order Comment: Speci men Type: BLOOD SPECIMENOrdering Facility: [facility] Address: [address] [place] [address] Performed By: #### 5 8410-2 ####[facility] LABCLIA [id number] [place] [address] Nucleated RBC (Bld) [#/Vol] 10*3/uL Normal <0.01 [facility] Comment on above: Order Comment: Speci men Type: BLOOD SPECIMENOrdering Facility: [facility] Address: [address] [place] [address] Performed By: #### 5 8410-2 ####[facility] LABCLIA [id number] [place] [address] Platelet mean volume (Bld) [Entitic vol] 8.8 fL Low 9.0-12.7 [facility] Comment on above: Order Comment: Speci men Type: BLOOD SPECIMENOrdering Facility: [facility] Address: [address] [place] [address] Performed By: #### 5 8410-2 ####[facility] LABCLIA [id number] [place] [address] Platelets (Bld) [#/Vol] 323 10*3/uL Normal 150-400 [facility] Comment on above: Order Comment: Speci men Type: BLOOD SPECIMENOrdering Facility: [facility] Address: [address] [place] [address] Performed By: #### 5 8410-2 ####[facility] LABIA [id number] [place] [address] RBC (Bld) [#/Vol] 4.59 10*6/uL Normal 3.90-5.20 [facility] Comment on above: Order Comment: Speci men Type: BLOOD SPECIMENOrdering Facility: [facility] Address: [address] [place] [address] Performed By: #### 5 8410-2 ####[facility] LABIA [id number] [place] [address] WBC (Bld) [#/Vol] 8.81 10*3/uL Normal 3.70-11.00 [facility] Comment on above: Order Comment: Speci men Type: BLOOD SPECIMENOrdering Facility: [facility] Address: [address] [place] [address] Performed By: #### 5 8410-2 ####[facility] LABIA [id number] [place] [address] Hepatic function 2000 panelO rdered By: Coleen Carlisle on 12-03-2024 Albumin [Mass/Vol] 4.4 g/dL 3.9 - 4.9 g/dL [facility] ALP [Catalytic activity/Vol] 57 U/L 34 - 123 U/L [facility] ALT [Catalytic activity/Vol] 15 U/L 7 - 38 U/L [facility] AST [Catalytic activity/Vol] 13 U/L 13 - 35 U/L [facility] Bilirubin [Mass/Vol] 0.2 mg/dL 0.2 - 1 .3 mg/dL [facility] Bilirubin.conjugated [Mass/Vol] mg/dL NINF - 0.2 mg/dL [facility] Interpretation and review of laboratory results Normal [facility] Protein [Mass/Vol] 6.7 g/dL 6.3 - 8.0 g/dL [facility] Hepatic function 2000 panelo n 12-03-2024 Albumin [Mass/Vol] 4.4 g/dL Normal 3.9-4.9 [facility] Comment on above: Order Comment: Speci men Type: BLOOD SPECIMENOrdering Facility: [facility] Address: [address] [place] [address] Performed By: #### 2 4325-3 ####[facility] LABCLIA [id number] [place] [address] ALP [Catalytic activity/Vol] 57 U/L Normal 34-123 [facility] Comment on above: Order Comment: Speci men Type: BLOOD SPECIMENOrdering Facility: [facility] Address: [address] [place] [address] Performed By: #### 2 4325-3 ####[facility] LABCLIA [id number] [place] [address] ALT [Catalytic activity/Vol] 15 U/L Normal 7-38 [facility] Comment on above: Order Comment: Speci men Type: BLOOD SPECIMENOrdering Facility: [facility] Address: [address] [place] [address] Performed By: #### 2 4325-3 ####[facility] LABCLIA [id number] [place] [address] AST [Catalytic activity/Vol] 13 U/L Normal 13-35 [facility] Comment on above: Order Comment: Speci men Type: BLOOD SPECIMENOrdering Facility: [facility] Address: [address] [place] [address] Performed By: #### 2 4325-3 ####[facility] LABCLIA [id number] [place] [address] Bilirubin [Mass/Vol] 0.2 mg/dL Normal 0.2-1.3 [facility] Comment on above: Order Comment: Speci men Type: BLOOD SPECIMENOrdering Facility: [facility] Address: [address] [place] [address] Performed By: #### 2 4325-3 ####[facility] LABCLIA [id number] [place] [address] Bilirubin.conjugated [Mass/Vol] mg/dL Normal <0.2 [facility] Comment on above: Order Comment: Speci men Type: BLOOD SPECIMENOrdering Facility: [facility] Address: [address] [place] [address] Performed By: #### 2 4325-3 ####[facility] LABCLIA [id number] [place] [address] Protein [Mass/Vol] 6.7 g/dL Normal 6.3-8.0 [facility] Comment on above: Order Comment: Speci men Type: BLOOD SPECIMENOrdering Facility: [facility] Address: [address] [place] [address] Performed By: #### 2 4325-3 ####[facility] LABCLIA [id number] [place] [address] BLOOD TB SCREENon 11-04-2024 M. tuberculosis tuberculin stim IFN-g Ql (Bld) Negative Normal [facility] Comment on above: Order Comment: Speci men Type: BLOOD SPECIMEN Ordering Facility: [facility] Address: [address] [place] [address] Performed By: #### 5 8410-2 #### AMHERST [facility] CLIA [id number] [address] [place] [address] [place] MITOGEN MINUS NIL >9.98 Normal >=0.50 [facility] Comment on above: Order Comment: Speci men Type: BLOOD SPECIMEN Ordering Facility: [facility] Address: [address] [place] [address] Performed By: #### 5 8410-2 #### [facility])T [facility] CLIA [id number] [address] [place] [address] [facility] OF [place] TB GAMMA INTERPRETATION Infection with M. tuberculosis complex is unlikely. If latent tuberculosis infection is highly suspected, a negative result does not rule out the infection. Specimens from immunocompromised patients and those <5 years of age may show false negative results. In case of a contact investigation, please repeat 8-12 weeks after a known exposure. Normal [facility] Comment on above: Order Comment: Speci men Type: BLOOD SPECIMEN Ordering Facility: [facility] Address: [address] [place] [address] Performed By: #### 5 8410-2 #### [facility])Karmen [facility] CLIA [id number] [address] [place] [address] STATES OF [facility] TB NIL 0.02 IU/mL Normal <=8.00 [facility] Comment on above: Order Comment: Speci men Type: BLOOD SPECIMEN Ordering Facility: [facility] Address: [address] [place] [address] Performed By: #### 5 8410-2 #### [facility])Karmen [facility] CLIA [id number] [address] [place] [address] [place] TB1 AG MINUS NIL 0.00 IU/mL Normal <0.35 [facility] Comment on above: Order Comment: Speci men Type: BLOOD SPECIMEN Ordering Facility: [facility] Address: [address] [place] [address] Performed By: #### 5 8410-2 #### [facility]T [facility] CLIA [id number] [address] [place] [address] OF [place] TB2 AG MINUS NIL 0.00 IU/mL Normal <0.35 [facility] Comment on above: Order Comment: Speci men Type: BLOOD SPECIMEN Ordering Facility: [facility] Address: [address] [place] [address] Performed By: #### 5 8410-2 #### BRABI [facility] CLIA [id number] [address] [place] [address] [place] CBC panel Auto (Bld)on 11-04 Erythrocyte distribution width (RBC) [Ratio] 25.4 % High 11.5-15.0 [facility] Comment on above: Order Comment: Speci men Type: BLOOD SPECIMEN Ordering Facility: [facility] Address: [address] [place] [address] Performed By: #### 5 8410-2 #### [facility] CLIA [id number] [address] [place] [address] Hematocrit (Bld) [Volume fraction] 38.6 % Normal 36.0-46.0 [facility] Comment on above: Order Comment: Speci men Type: BLOOD SPECIMEN Ordering Facility: [facility] Address: [address] [place] [address] Performed By: #### 5 8410-2 #### [facility] CLIA [id number] [address] [place] [address] Hemoglobin (Bld) [Mass/Vol] 11.8 g/dL Normal 11.5-15.5 [facility] Comment on above: Order Comment: Speci men Type: BLOOD SPECIMEN Ordering Facility: [facility] Address: [address] [place] [address] Performed By: #### 5 8410-2 #### [facility] CLIA [id number] [address] [place] [address] MCH (RBC) [Entitic mass] 25.4 pg Low 26.0-34.0 [facility] Comment on above: Order Comment: Speci men Type: BLOOD SPECIMEN Ordering Facility: [facility] Address: [address] [place] [address] Performed By: #### 5 8410-2 #### [facility] CLIA [id number] [address] [place] [address] MCHC (RBC) [Mass/Vol] 30.6 g/dL Normal 30.5-36.0 [facility] Comment on above: Order Comment: Speci men Type: BLOOD SPECIMEN Ordering Facility: [facility] Address: [address] [place] [address] Performed By: #### 5 8410-2 #### [facility] CLIA [id number] [address] [place] [address] MCV (RBC) [Entitic vol] 83.0 fL Normal 80.0-100.0 [facility] Comment on above: Order Comment: Speci men Type: BLOOD SPECIMEN Ordering Facility: [facility] Address: [address] [place] [address] Performed By: #### 5 8410-2 #### [facility] CLIA [id number] [address] [place] [address] Nucleated RBC (Bld) [#/Vol] 10*3/uL Normal <0.01 [facility] Comment on above: Order Comment: Speci men Type: BLOOD SPECIMEN Ordering Facility: [facility] Address: [address] [place] [address] Performed By: #### 5 8410-2 #### [facility] CLIA [id number] [address] [place] [address] Platelet mean volume (Bld) [Entitic vol] 8.6 fL Low 9.0-12.7 [facility] Comment on above: Order Comment: Speci men Type: BLOOD SPECIMEN Ordering Facility: [facility] Address: [address] [place] [address] Performed By: #### 5 8410-2 #### [facility] CLIA [id number] [address] [place] [address] Platelets (Bld) [#/Vol] 420 10*3/uL High 150-400 [facility] Comment on above: Order Comment: Speci men Type: BLOOD SPECIMEN Ordering Facility: [facility] Address: [address] [place] [address] Performed By: #### 5 8410-2 #### [facility] CLIA [id number] [address] [place] [address] RBC (Bld) [#/Vol] 4.65 10*6/uL Normal 3.90-5.20 [facility] Comment on above: Order Comment: Speci men Type: BLOOD SPECIMEN Ordering Facility: [facility] Address: [address] [place] [address] Performed By: #### 5 8410-2 #### [facility] CLIA [id number] [address] [place] [address] WBC (Bld) [#/Vol] 7.70 10*3/uL Normal 3.70-11.00 [facility] Comment on above: Order Comment: Speci men Type: BLOOD SPECIMEN Ordering Facility: [facility] Address: [address] [place] [address] Performed By: #### 5 8410-2 #### [facility] CLIA [id number] [address] [place] [address] Hepatic function 2000 panelo n 11-04-2024 Albumin [Mass/Vol] 4.2 g/dL Normal 3.9-4.9 [facility] Comment on above: Order Comment: Speci men Type: BLOOD SPECIMENOrdering Facility: [facility] Address: [address] [place] [address] Performed By: #### 2 4325-3 ####[facility] LABCLIA [id number] [place] [address] [place] ALP [Catalytic activity/Vol] 57 U/L Normal 34-123 [facility] Comment on above: Order Comment: Speci men Type: BLOOD SPECIMENOrdering Facility: [facility] Address: [address] [place] [address] Performed By: #### 2 4325-3 ####[facility] LABCLIA [id number] [address] [address] [id number] [address] [place] ALT [Catalytic activity/Vol] 24 U/L Normal 7-38 [facility] Comment on above: Order Comment: Speci men Type: BLOOD SPECIMENOrdering Facility: [facility] Address: [address] [place] [address] Performed By: #### 2 4325-3 ####[facility] LABCLIA [id number] [place] [address] [place] AST [Catalytic activity/Vol] 21 U/L Normal 13-35 [facility] Comment on above: Order Comment: Speci men Type: BLOOD SPECIMENOrdering Facility: [facility] Address: [address] [place] [address] Performed By: #### 2 4325-3 ####[facility] LABCLIA [id number] [place] [address] [place] Bilirubin [Mass/Vol] mg/dL Low 0.2-1.3 [facility] Comment on above: Order Comment: Speci men Type: BLOOD SPECIMENOrdering Facility: [facility] Address: [address] [place] [address] Performed By: #### 2 4325-3 ####[facility] LABCLIA [id number] [place] [address] [place] Bilirubin.conjugated [Mass/Vol] mg/dL Normal <0.2 [facility] Comment on above: Order Comment: Speci men Type: BLOOD SPECIMENOrdering Facility: [facility] Address: [address] [place] [address] Performed By: #### 2 4325-3 ####[facility] LABCLIA [id number] [place] [address] [place] Protein [Mass/Vol] 6.6 g/dL Normal 6.3-8.0 [facility] Comment on above: Order Comment: Speci men Type: BLOOD SPECIMENOrdering Facility: [facility] Address: [address] [place] [address] Performed By: #### 2 4325-3 ####[facility] LABWILLIAM [id number] [facility] [id number] [id number] [facility] Russel 11-03-2024 CNPN Telephone (INFDMN) VENITAANGELA ERIC ([id number]) 1980 F Date Time Provider Department 11/03/24 ORLANDO TORRES [facility] During your visit today, we recorded the following information about you: Orlando Torres MD 11/03/2024 2:34 PM Signed call to patient on sched for Monday 11/[address] bx want to get started on valgan 900 mg po bid ordered message left and message to GI doc will try to see virtually tomarrow Orlando Torres MD Allergies As of Date: 11/03/2024 (No Known Allergies) Date Reviewed: 10/01/2024 Reviewed by: Virginia Delgado, RN - Fully Assessed Prescriptions as of 11/03/2024 - valGANciclovir (VALCYTE) 450 mg tablet Take 2 tablets by mouth two times a day for 28 days. - risankizumab-rzaa (SKYRIZI) 360 mg/2.4 mL (150 mg/mL) wearable injector Inject 360 mg subcutaneously every 8 weeks. First dose at week 12, then every 8 weeks after that. - clonazePAM (KLONOPIN) 0.5 mg tablet Take 0.5 mg by mouth two times a day as needed for anxiety. Facility-Administered Medications as of 11/03/2024 - NaCl 0.9% iv infusion - diphenhydrAMINE 50 mg injection (BENADRYL) - hydrocortisone sodium succinate (PF) 100 mg injection (Solu-CORTEF) - EPINEPHrine 1 mg/mL (1 mL) 0.3 mg injection - sodium chloride 0.9 % (flush) 10-20 mL (BD POSIFLUSH) - sodium chloride 0.9 % (flush) 10-20 mL (BD POSIFLUSH) Problem List As Of Date 11/03/2024 Noted Resolved Iron deficiency anemia due to chronic blood los*12/25/2021 Ulcerative pancolitis without complication (HCC*03/31/2023 Anxiety [F41.9] 05/19/2020 Vapes nicotine containing substance [Z72.0] 03/31/2023 Migraines [G43.909] 03/31/2023 Chronic neck pain [M54.2, G89.29] 03/31/2023 C. difficile colitis [A04.72] 03/31/2023 Nicotine use disorder, F17.2 [F17.200] 03/31/2023 Clostridium difficile colitis [A04.72] 04/01/2023 Hypokalemia [E87.6] 09/29/2024 Obesity [E66.9] 09/29/2024 Ulcerative colitis with rectal bleeding (HCC) [*09/29/2024 Thrombocytosis [D75.839] 09/29/2024 Obesity, Class I, BMI 30-34.9 [E66.811] 10/01/2024 Encounter Status:Closed by ORLANDO TORRES on 11/03/24 Normal [facility] CYTOMEGALOVIRUS (CMV) DNA, Q UANTITATIVE PCR, PLASMAOrdered By: Tiny Abel on 10-10-2024 CMV DNA ART+probe [#/Vol] IU/mL [facility] CMV DNA ART+probe [Log #/Vol] log IU/mL [facility] CMV DNA ART+probe Qn (P) Detected Abnormal Not Detected [facility] Interpretation and review of laboratory results Abnormal [facility] link CMV is an in vitro nucleic acid amplification test for the quantitation of cytomegalovirus (CMV) DNA in human EDTA plasma. The linear range of the assay is 34.5 to 10,000,000 IU/mL (1.54 - 7.00 log IU/mL). The lower limit of detection of the assay is 34.5 IU/mL. link CMV is an in vitro nucleic acid amplification test for the quantitation of cytomegalovirus (CMV) DNA in human EDTA plasma. The linear range of the assay is 34.5 to 10,000,000 IU/mL (1.54 - 7.00 log IU/mL). The lower limit of detection of the assay is 34.5 IU/mL. [facility] CBC panel Auto (Bld)on 10-09 Erythrocyte distribution width (RBC) [Ratio] 26.1 % High 11.5-15.0 [facility] Comment on above: Order Comment: Speci men Type: BLOOD SPECIMEN Ordering Facility: [facility] Address: [address] [place] [address] Performed By: #### 5 8410-2 #### [facility]Karmen [facility] CLIA [id number] [address] [place] [address] [place] Hematocrit (Bld) [Volume fraction] 34.7 % Low 36.0-46.0 [facility] Comment on above: Order Comment: Speci men Type: BLOOD SPECIMEN Ordering Facility: [facility] Address: [address] [place] [address] Performed By: #### 5 8410-2 #### [facility]Karmen [facility] CLIA [id number] [address] [place] [address] [place] Hemoglobin (Bld) [Mass/Vol] 9.7 g/dL Low 11.5-15.5 [facility] Comment on above: Order Comment: Speci men Type: BLOOD SPECIMEN Ordering Facility: [facility] Address: [address] [place] [address] Performed By: #### 5 8410-2 #### [facility]Karmen [facility] CLIA [id number] [address] [place] [address] [place] MCH (RBC) [Entitic mass] 21.8 pg Low 26.0-34.0 [facility] Comment on above: Order Comment: Speci men Type: BLOOD SPECIMEN Ordering Facility: [facility] Address: [address] [place] [address] Performed By: #### 5 8410-2 #### [facility])T [facility] CLIA [id number] [address] [place], [place] [id number] [place] MCHC (RBC) [Mass/Vol] 28.0 g/dL Low 30.5-36.0 [facility] Comment on above: Order Comment: Speci men Type: BLOOD SPECIMEN Ordering Facility: [facility] Address: [address] [place] [address] Performed By: #### 5 8410-2 #### [facility])Karmen [facility] CLIA [id number] [address] [place] [address] [place] MCV (RBC) [Entitic vol] 78.2 fL Low 80.0-100.0 [facility] Comment on above: Order Comment: Speci men Type: BLOOD SPECIMEN Ordering Facility: [facility] Address: [address] [place] [address] Performed By: #### 5 8410-2 #### [facility])Karmen [facility] CLIA [id number] [address] [place] [address] [place] Nucleated RBC (Bld) [#/Vol] 10*3/uL Normal <0.01 [facility] Comment on above: Order Comment: Speci men Type: BLOOD SPECIMEN Ordering Facility: [facility] Address: [address] [place] [address] Performed By: #### 5 8410-2 #### [facility])Karmen [facility] CLIA [id number] [address] [place] [address] [place] Platelet mean volume (Bld) [Entitic vol] 8.5 fL Low 9.0-12.7 [facility] Comment on above: Order Comment: Speci men Type: BLOOD SPECIMEN Ordering Facility: [facility] Address: [address] [place] [address] Performed By: #### 5 8410-2 #### [facility] CLIA [id number] [address] [place], [place] [id number] [place] Platelets (Bld) [#/Vol] 458 10*3/uL High 150-400 [facility] Comment on above: Order Comment: Speci men Type: BLOOD SPECIMEN Ordering Facility: [facility] Address: [address] [place] [address] Performed By: #### 5 8410-2 #### [facility])T [facility] CLIA [id number] [address] [place] [address] [place] RBC (Bld) [#/Vol] 4.44 10*6/uL Normal 3.90-5.20 [facility] Comment on above: Order Comment: Speci men Type: BLOOD SPECIMEN Ordering Facility: [facility] Address: [address] [place] [address] Performed By: #### 5 8410-2 #### [facility])Karmen [facility] CLIA [id number] [address] [place] [address] [place] WBC (Bld) [#/Vol] 12.06 10*3/uL High 3.70-11.00 [facility] Comment on above: Order Comment: Speci men Type: BLOOD SPECIMEN Ordering Facility: [facility] Address: [address] [place] [address] Performed By: #### 5 8410-2 #### [facility])Karmen [facility] CLIA [id number] [address] [place] [address] STATES OF [facility] CRP SerPl-ncon 10-09-2024 CRP [Mass/Vol] mg/L Normal <0.9 [facility] Comment on above: Order Comment: Speci men Type: BLOOD SPECIMEN Ordering Facility: [facility] Address: [address] [place] [address] Performed By: #### 5 8410-2 #### [facility])Karmen [facility] CLIA [id number] [address] [place] [address] [place] CYTOMEGALOVIRUS (CMV) DNA, Q UANTITATIVE PCR, PLASMAon 10-09-2024 CMV DNA ART+probe [#/Vol] <35 Normal [facility] Comment on above: Order Comment: Speci men Type: BLOOD SPECIMEN Ordering Facility: [facility] Address: [address] [place] [address] Performed By: #### 5 8410-2 #### [facility])Karmen [facility] CLIA [id number] [address] [place] [address] [place] CMV DNA ART+probe [Log #/Vol] <1.54 Normal [facility] Comment on above: Order Comment: Speci men Type: BLOOD SPECIMEN Ordering Facility: [facility] Address: [address] [place] [address] Performed By: #### 5 8410-2 #### [facility]LL[facility] CLIA [id number] [address] [place] [address] OF [facility] CMV DNA ART+probe Qn (P) Detected Abnormal Not Detected [facility] Comment on above: Order Comment: Speci men Type: BLOOD SPECIMEN Ordering Facility: [facility] Address: [address] [place] [address] Performed By: #### 5 8410-2 #### [facility] CLIA [id number] [address] [place] [address] OF [place] Comprehensive metabolic 2000 panelon 10-09-2024 Albumin [Mass/Vol] 4.0 g/dL Normal 3.9-4.9 [facility] Comment on above: Order Comment: Speci men Type: BLOOD SPECIMEN Ordering Facility: [facility] Address: [address] [place] [address] Performed By: #### 5 8410-2 #### BARBI [facility] CLIA [id number] [address] [place] [address] [place] ALP [Catalytic activity/Vol] 52 U/L Normal 34-123 [facility] Comment on above: Order Comment: Speci men Type: BLOOD SPECIMEN Ordering Facility: [facility] Address: [address] [place] [address] Performed By: #### 5 8410-2 #### [facility] CLIA [id number] [address] [place] [address] [place] ALT [Catalytic activity/Vol] 18 U/L Normal 7-38 [facility] Comment on above: Order Comment: Speci men Type: BLOOD SPECIMEN Ordering Facility: [facility] Address: [address] [place] [address] Performed By: #### 5 8410-2 #### BARBI [facility] CLIA [id number] [address] [place] [address] [place] Anion gap [Moles/Vol] 14 mmol/L Normal 8-15 [facility] Comment on above: Order Comment: Speci men Type: BLOOD SPECIMEN Ordering Facility: [facility] Address: [address] [place] [address] Performed By: #### 5 8410-2 #### [facility] CLIA [id number] [address] [place] [address] [place] AST [Catalytic activity/Vol] 16 U/L Normal 13-35 [facility] Comment on above: Order Comment: Speci men Type: BLOOD SPECIMEN Ordering Facility: [facility] Address: [address] [place] [address] Performed By: #### 5 8410-2 #### [facility])Karmen [facility] CLIA [id number] [address] [place], [place] [id number] [place] Bilirubin [Mass/Vol] 0.2 mg/dL Normal 0.2-1.3 [facility] Comment on above: Order Comment: Speci men Type: BLOOD SPECIMEN Ordering Facility: [facility] Address: [address] [place] [address] Performed By: #### 5 8410-2 #### [facility] CLIA [id number] [address] [place] [address] [place] Calcium [Mass/Vol] 8.8 mg/dL Normal 8.5-10.2 [facility] Comment on above: Order Comment: Speci men Type: BLOOD SPECIMEN Ordering Facility: [facility] Address: [address] [place], [place] [address] Performed By: #### 5 8410-2 #### [facility] CLIA [id number] [address] [place] [address] [place] Chloride [Moles/Vol] 104 mmol/L Normal 98-107 [facility] Comment on above: Order Comment: Speci men Type: BLOOD SPECIMEN Ordering Facility: [facility] Address: [address] [place] [address] Performed By: #### 5 8410-2 #### [facility])T [facility] CLIA [id number] [address] [place] [address] [place] CO2 [Moles/Vol] 23 mmol/L Normal 22-30 [facility] Comment on above: Order Comment: Speci men Type: BLOOD SPECIMEN Ordering Facility: [facility] Address: [address] [place] [address] Performed By: #### 5 8410-2 #### [facility])T [facility] CLIA [id number] [address] [place] [address] [place] Creatinine [Mass/Vol] 0.90 mg/dL Normal 0.58-0.96 [facility] Comment on above: Order Comment: Speci men Type: BLOOD SPECIMEN Ordering Facility: [facility] Address: [address] [place] [address] Performed By: #### 5 8410-2 #### [facility])T [facility] CLIA [id number] [address] [place] [address] [place] Creatinine and Glomerular filtration rate.predicted panel (S/P/Bld) 81 mL/min/1.73m??? Normal >=60 [facility] Comment on above: Order Comment: Speci men Type: BLOOD SPECIMEN Ordering Facility: [facility] Address: [address] [place] [address] Result Comment: Michelle mated Glomerular Filtration Rate (eGFR) is calculated using the 2020 CKD-EPI creatinine equation. This equation utilizes serum creatinine, sex, and age as parameters. The creatinine assay has traceable calibration to isotope dilution-mass spectrometry. Refer to KDIGO guidelines for clinical interpretation. In patients with unstable renal function, e.g. those with acute kidney injury, the eGFR may not accurately reflect actual GFR. Performed By: #### 5 8410-2 #### [facility]ST [facility] CLIA [id number] [address] [place] [address] [place] Glucose [Mass/Vol] 91 mg/dL Normal 74-99 [facility] Comment on above: Order Comment: Speci men Type: BLOOD SPECIMEN Ordering Facility: [facility] Address: [address] [place], [place] [address] Result Comment: The [place] Diabetes Association (ADA) provides guidance for cutoff values for fasting glucose and random glucose. The ADA defines fasting as no caloric intake for at least 8 hours. Fasting plasma glucose results between 100 to 125 mg/dL indicate increased risk for diabetes (prediabetes). Fasting plasma glucose results greater than or equal to 126 mg/dL meet the criteria for diagnosis of diabetes. In the absence of unequivocal hyperglycemia, results should be confirmed by repeat testing. In a patient with classic symptoms of hyperglycemia or hyperglycemic crisis, random plasma glucose results greater than or equal to 200 mg/dL meet the criteria for diagnosis of diabetes. Reference: Standards of Medical Care in Diabetes 2016, [place] Diabetes Association. Diabetes Care. 2016.39(Suppl 1). Performed By: #### 5 8410-2 #### DORIST [facility] CLIA [id number] [address] [place] [address] [place] Potassium [Moles/Vol] 4.0 mmol/L Normal 3.7-5.1 [facility] Comment on above: Order Comment: Marjoriei bud Type: BLOOD SPECIMEN Ordering Facility: [facility] Address: [address] [place] [address] Performed By: #### 5 8410-2 #### [facility] CLIA [id number] [address] [place] [address] [place] Protein [Mass/Vol] 6.1 g/dL Low 6.3-8.0 [facility] Comment on above: Order Comment: Speci men Type: BLOOD SPECIMEN Ordering Facility: [facility] Address: [address] [place], [place] [address] Performed By: #### 5 8410-2 #### [facility] CLIA [id number] [address] [place] [address] [place] Sodium [Moles/Vol] 141 mmol/L Normal 136-144 [facility] Comment on above: Order Comment: Speci men Type: BLOOD SPECIMEN Ordering Facility: [facility] Address: [address] [place] [address] Performed By: #### 5 8410-2 #### [facility]T [facility] CLIA [id number] [address] [place] [address] [place] Urea nitrogen [Mass/Vol] 13 mg/dL Normal 7-21 [facility] Comment on above: Order Comment: Speci men Type: BLOOD SPECIMEN Ordering Facility: [facility] Address: [address] [place] [address] Performed By: #### 5 8410-2 #### [facility])Karmen [facility] CLIA [id number] [address] [place] [address] [place] Basic metabolic 2000 panelon 10-01-2024 Anion gap [Moles/Vol] 11 mmol/L Normal 8-15 [facility] Comment on above: Order Comment: Speci men Type: BLOOD SPECIMENOrdering Facility: [facility] Address: [address] [place] [address] Performed By: #### 2 4321-2 ####[facility] [id number] [place] [address] [place] Calcium [Mass/Vol] 9.2 mg/dL Normal 8.5-10.2 [facility] Comment on above: Order Comment: Speci men Type: BLOOD SPECIMENOrdering Facility: [facility] Address: [address] [place] [address] Performed By: #### 2 4321-2 ####[facility]OR[facility]ORYCLIA [id number] [place] [address] [place] Chloride [Moles/Vol] 105 mmol/L Normal 98-107 [facility] Comment on above: Order Comment: Speci men Type: BLOOD SPECIMENOrdering Facility: [facility] Address: [address] [place] [address] Performed By: #### 2 4321-2 ####[facility] LABORATORYCLIA [id number] [place] [address] [place] CO2 [Moles/Vol] 24 mmol/L Normal 22-30 [facility] Comment on above: Order Comment: Speci men Type: BLOOD SPECIMENOrdering Facility: [facility] Address: [address] [place] [address] Performed By: #### 2 4321-2 ####[facility] LABOR[facility]ORYCLIA [id number] [place] [address] [place] Creatinine [Mass/Vol] 0.78 mg/dL Normal 0.58-0.96 [facility] Comment on above: Order Comment: Speci men Type: BLOOD SPECIMENOrdering Facility: [facility] Address: [address] [place] [address] Performed By: #### 2 4321-2 ####[facility]OR[facility]ORYCLIA [id number] [place] [address] [place] Creatinine and Glomerular filtration rate.predicted panel (S/P/Bld) 96 mL/min/1.73m??? Normal >=60 [facility] Comment on above: Order Comment: Speci [facility] Type: BLOOD SPECIMENOrdering Facility: [facility] Address: [address] [place] [address] Result Comment: Michelle mated Glomerular Filtration Rate (eGFR) is calculated using the 2020 CKD-EPI creatinine equation. This equation utilizes serum creatinine, sex, and age as parameters. The creatinine assay has traceable calibration to isotope dilution-mass spectrometry. Refer to KDIGO guidelines for clinical interpretation. In patients with unstable renal function, e.g. those with acute kidney injury, the eGFR may not accurately reflect actual GFR. Performed By: #### 2 4321-2 ####[facility]OR[facility]ORYCLIA [id number] [place] [address] [place] Glucose [Mass/Vol] 125 mg/dL High 74-99 [facility] Comment on above: Order Comment: Speci [facility] Type: BLOOD SPECIMENOrdering Facility: [facility] Address: [address] [place] [address] Result Comment: The [place] Diabetes Association (ADA) provides guidance for cutoff values for fasting glucose and random glucose. The ADA defines fasting as no caloric intake for at least 8 hours. Fasting plasma glucose results between 100 to 125 mg/dL indicate increased risk for diabetes (prediabetes). Fasting plasma glucose results greater than or equal to 126 mg/dL meet the criteria for diagnosis of diabetes. In the absence of unequivocal hyperglycemia, results should be confirmed by repeat testing. In a patient with classic symptoms of hyperglycemia or hyperglycemic crisis, random plasma glucose results greater than or equal to 200 mg/dL meet the criteria for diagnosis of diabetes. Reference: Standards of Medical Care in Diabetes 2016, [place] Diabetes Association. Diabetes Care. 2016.39(Suppl 1). Performed By: #### 2 4321-2 ####[facility] LABORATORYIA [id number] [place] [address] [place] Potassium [Moles/Vol] 4.3 mmol/L Normal 3.7-5.1 [facility] Comment on above: Order Comment: Ayaka farrell Type: BLOOD SPECIMENOrdering Facility: [facility] Address: [address] [place] [address] Performed By: #### 2 1-2 ####[facility]ITAL[facility] [id number] [place] [address] [place] Sodium [Moles/Vol] 140 mmol/L Normal 136-144 [facility] Comment on above: Order Comment: Ayaka farrell Type: BLOOD SPECIMENOrdering Facility: [facility] Address: [address] [place] [address] Performed By: #### 2 4321-2 ####[facility] LABORATORYIA [id number] [place] [address] [place] Urea nitrogen [Mass/Vol] 15 mg/dL Normal 7-21 [facility] Comment on above: Order Comment: Ayaka farrell Type: BLOOD SPECIMENOrdering Facility: [facility] Address: [address] [place] [address] Performed By: #### 2 4321-2 ####[facility] LABORATORYIA [id number] [place] [address] [place] CBC panel Auto (Bld)on 10-01 Erythrocyte distribution width (RBC) [Ratio] 22.7 % High 11.5-15.0 [facility] Comment on above: Order Comment: Speci men Type: BLOOD SPECIMENOrdering Facility: [facility] Address: [address] [place] [address] Performed By: #### 5 8410-2 ####[facility]PITALIA [id number] [address] [place] Hematocrit (Bld) [Volume fraction] 31.3 % Low 36.0-46.0 [facility] Comment on above: Order Comment: Speci men Type: BLOOD SPECIMENOrdering Facility: [facility] Address: [address] [place] [address] Performed By: #### 5 8410-2 ####[facility] [id number] [place] [address] [place] Hemoglobin (Bld) [Mass/Vol] 8.5 g/dL Low 11.5-15.5 [facility] Comment on above: Order Comment: Speci men Type: BLOOD SPECIMENOrdering Facility: [facility] Address: [address] [place] [address] Performed By: #### 5 8410-2 ####[facility] [id number] [address] [place] MCH (RBC) [Entitic mass] 20.4 pg Low 26.0-34.0 [facility] Comment on above: Order Comment: Speci men Type: BLOOD SPECIMENOrdering Facility: [facility] Address: [address] [place] [address] Performed By: #### 5 8410-2 ####[facility] [id number] [address] [place] MCHC (RBC) [Mass/Vol] 27.2 g/dL Low 30.5-36.0 [facility] Comment on above: Order Comment: Speci men Type: BLOOD SPECIMENOrdering Facility: [facility] Address: [address] [place] [address] Performed By: #### 5 8410-2 ####[facility] LABORATORYIA [id number] [facility] [place] [address] [place] MCV (RBC) [Entitic vol] 75.1 fL Low 80.0-100.0 [facility] Comment on above: Order Comment: Speci men Type: BLOOD SPECIMENOrdering Facility: [facility] Address: [address] [place] [address] Performed By: #### 5 8410-2 ####[facility]ITAL[facility] [id number] [place] [address] [place] Nucleated RBC (Bld) [#/Vol] 10*3/uL Normal <0.01 [facility] Comment on above: Order Comment: Speci men Type: BLOOD SPECIMENOrdering Facility: [facility] Address: [address] [place] [address] Performed By: #### 5 8410-2 ####[facility]ITAL[facility] [id number] [place] [address] [place] Platelet mean volume (Bld) [Entitic vol] 9.3 fL Normal 9.0-12.7 [facility] Comment on above: Order Comment: Speci men Type: BLOOD SPECIMENOrdering Facility: [facility] Address: [address] [place] [address] Performed By: #### 5 8410-2 ####[facility]ITAL[facility] [id number] [facility] [place] [address] [place] Platelets (Bld) [#/Vol] 471 10*3/uL High 150-400 [facility] Comment on above: Order Comment: Speci men Type: BLOOD SPECIMENOrdering Facility: [facility] Address: [address] [place] [address] Performed By: #### 5 8410-2 ####[facility] [id number] [facility] [place] [address] [place] RBC (Bld) [#/Vol] 4.17 10*6/uL Normal 3.90-5.20 [facility] Comment on above: Order Comment: Speci men Type: BLOOD SPECIMENOrdering Facility: [facility] Address: [address] [id number] Performed By: #### 5 8410-2 ####[facility] [id number] [place] [address] [facility] WBC (Bld) [#/Vol] 11.70 10*3/uL High 3.70-11.00 [facility] Comment on above: Order Comment: Speci men Type: BLOOD SPECIMENOrdering Facility: [facility] Address: [address] [place] [address] Performed By: #### 5 8410-2 ####[facility]ITALIA [id number] [place] [address] [facility] CNDSon 10-01-2024 CNDS HNO ID: [id number] Author: YURIY PACK MD Service: Hospital Medicine Author Type: Physician Type: Discharge Summary Filed: 10/01/2024 10:29 Note Text: DISCHARGE SUMMARY PATIENT NAME: Angela Elam ADMISSION DATE: 09/29/2024 DISCHARGE DATE: 10/01/2024 ATTENDING PHYSICIAN: Yuriy Pack MD Code Status: Full Code PCP: Beck Tee DO, DO Highest Readmission Risk Score: 15 The 30 day readmissions risk score is derived from an internally validated risk model which evaluates patient level characteristics, utilization history, medication orders and lab results up until the day of discharge. Patients with a score of 40 or above are considered highest risk for readmission. Specific patient level drivers will be listed at the bottom of the summary. TRANSITIONS OF CARE CRITICAL ISSUES: GARCIA MEDICATION CHANGES: Prednisone dose increased to 40 mg daily as per GI recommendation FOLLOW UP APPOINTMENTS: Primary care physician and GI LABS AND PROCEDURES PENDING AT DISCHARGE: Test Results Not Yet Available from This Hospitalization: Please Review at Your Follow Up Appointment Order Current Status SURGICAL PATHOLOGY In process REASON FOR HOSPITALIZATION/PRINCI PAL DIAGNOSES: Ulcerative colitis flareup HOSPITAL PROBLEMS: Principal Problem: Ulcerative colitis with rectal bleeding (HCC) (POA: Yes) Active Problems: Iron deficiency anemia due to chronic blood loss (POA: Yes) Anxiety (POA: Yes) Vapes nicotine containing substance (POA: Yes) Migraines (POA: Yes) Hypokalemia (POA: Yes) Obesity (POA: Yes) Thrombocytosis (POA: Yes) Obesity, Class I, BMI 30-34.9 (POA: Yes) Resolved Problems: * No resolved hospital problems. * HOSPITAL COURSE: Angela Elam is a 44 year old female presented with past medical history of ulcerative colitis, previous C difficile infection, IBS, TIO, ADHD, anxiety/depression, and migraine. She presents with bright red bleeding per rectum of 3 days duration, and is admitted with ulcerative colitis flare. C. difficile negative. Calprotectin elevated at 3080. GI evaluated the patient flexible sigmoidoscopy: Impression: - Small external hemorrhoids were found on perianal and digital rectal exams. - Severe (Vanessa Score 3) ulcerative colitis, worsened since the last examination. Biopsied. - A severe, non-traversable stricture was found in the sigmoid colon. Biopsied to rule out malignancy and Crohn's disease. - The examination was otherwise normal. Recommendation: - [facility]. - Clear liquid diet. - Minimize/avoid antidiarrheals and opiates. - Continue present medications, including Solumedrol 20 mg IV every 8 hours. - Await pathology results. - Obtain CT enterography. - The findings and recommendations were discussed with the patien Patient was placed on IV steroids and improved significantly. GI cleared patient for discharge on prednisone 40 mg daily to follow-up with GI on an outpatient basis. GI recommended to continue prednisone 40 mg daily for 1 month and then they will decide about tapering when she goes for her follow-up visit. OPERATIONS/PROCEDURE DURING THIS HOSPITALIZATION: * No surgery found * None CT Scan Colonoscopy CONSULTS DURING HOSPITALIZATION: Treatment Team: Attending Provider: Yuriy Pack MD Consulting: Mak Martinez MD PATIENT CONDITION AT DISCHARGE: Stable DISCHARGE DISPOSITION: Home with Self Care Discharge Physical Exam: VITAL SIGNS: BP 117/65 Pulse 84 Temp 36.9 ?C (98.4 ?F) (Oral) Resp 16 Ht 167.6 cm (5' 5.98 ) Wt 93.5 kg (206 lb 2.1 oz) LMP 09/13/2024 (Approximate) SpO2 98% BMI 33.29 kg/m? Physical Exam Performed: General appearance: Well appearing, alert and orientedx3, in no acute distress. Skin: color, texture, turgor normal Head: Normocephalic, no masses, lesions Eyes: PERRLA. Neck: Supple, no bruits Lungs: Clear to auscultation. No wheezing, rhonchi, rales. Cardiac: RRR, no murmur, gallop, or rubs Abdomen: soft, non-tender. Bowel sounds normal Extremities: No deformities, edema, skin discoloration Musculoskeletal: No joint swelling, deformity, or tenderness Neuro: No focal neurologic deficit WOUND/SURGICAL SITE CARE: None SUPPLIES OR EQUIPMENT: None DIET: Resume pre-hospital diet ACTIVITY AND EXERCISE: Resume pre-hospital activity FOLLOW UP APPOINTMENTS: Future Appointments Date Time Provider Department Center 10/01/2024 2:00 PM CHAIR 19 MATTHEW HEMTSA [facility] 10/08/2024 3:30 PM [facility] 3[facility]30 [facility] 3:30 PM [facility]/29/2024 2:00 PM [facility] 11/01/2024 9:30 AM Pharmacist, [facility] 2 [facility] None 11/26/2024 2:00 PM CHAIR 16 MAT[facility]W [facility]EM[facility] 12/10/2024 2:45 PM LAB HEMRAD MATTHEW LABSAN [facility] 12/10/2024 3:00 (more content not included)... [facility] ([id number]) 1980 F Date Time Provider Department 10/01/24 DERIC RALPH During your visit today, we recorded the following information about you: Deric Ralph APRN.COUNCILPERSON 10/01/2024 1:14 PM Signed S/p flex sig with worsening disease was on IV steroids. Feeling better today going to be discharge Getting skyrizi today and IV iron Will need follow up with Dr. Martinez. She is trying to get things figured out in order to get surgery. Had long conversation with her Primary sending out with month worth of Prednisone 40 mg PO daily until gets couple Skyrizi doses in then taper Thanks Melanie Diaz RN 10/01/2024 2:[address] Martinez, Do you have a time frame in which you would like patient to be seen? AUSTIN Whaley, MD Mak 10/01/2024 5:21 PM Signed Melanie, can you please call and review her pathology results? Biopsies from her rectum and sigmoid colon show chronic active colitis, consistent with inflammatory bowel disease. No dysplasia or distinguishing features of Crohn's disease were found in her stricture biopsies and random colon biopsies. CMV stains are pending, but I will contact her if this is positive. My suspicion is low for this. I'd like to see her in the office in 6 weeks. This will give her enough time to get 2 Skyrizi injections. There is a possibility that she could have Crohn's colitis based on the non-traversable stricture found in her sigmoid colon. UC is typically not associated with stricturing disease. UC can be cured with a total colectomy, but Crohn's disease does not always go into remission after a TAC because it can involve other areas of the GI tract. Melanie Lechuga RN 10/04/2024 10:00 AM Signed Attempted to contact patient. Went to [employer] but mailbox is full and cannot accept messages at this time. Will try to call again later. AUSTIN Whaley Chelsea A, RN 10/05/2024 11:33 AM Signed Attempted again to contact patient. No answer. Mailbox full. Sent MC message with results and recommendations from Dr. Martinez as seen below. Anya - Can you help find an OV times slot for this patient in 6 weeks? I added her to the wait list. Thanks! 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 She endorses persistent diarrhea with scant bleeding despite taking prednisone, Lack of response to prednisone is best explained by acute CMV infection. She denies fevers/chills, vomiting, inability to tolerate PO, severe abdominal pain or symptoms of severe dehydration. CMV PCR ordered. She was urged to go to the lab to get this done prior to starting treatment. A 2-week course of valganciclovir was prescribed. ID consult placed. I'd like to get her in to see ID within 1 week given the acuity of this infection. She is open to virtual appointments. Melanie, can you see if she was successful in finding an appointment on Friday? Melanie Lechuga RN 10/12/2024 11:03 AM Signed Attempted to contact patient to see if I could help her get an appointment with ID. No answer. Left voicemail asking her to either call the office or send MC message. AUSTIN Whaley Chelsea A, RN 10/20/2024 3:18 PM Signed Attempted again to contact patient. No answer. Left message advising that I didn't see that she scheduled with ID yet. Reminded her that it was important to schedule an OV with ID as soon as possible. Advised that if she had trouble making an appointment, to call the office or send a MC message and we could help make the appt. AUSTIN Whaley Danielle, LPN 10/21/2024 10:51 AM Signed Call placed to ID and spoke with scheduling team who found an appointment with ID on FridayNovember 12, at 10:30am. This is the first available for requested day of the week. Patient notified via [employer]. CHANG Mccann Chelsea A, RN 11/12/2024 11:[address] Sadik, Patient had VV with ID today. 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 AUSTIN Whaley Jacob, MD 11/15/2024 5:05 PM Signed OK to proceed with sigmoidoscopy at either [facility] or [place] [facility] if there is an opening. Order placed. She should adhere to a clear l (more content not included)... [facility] CNPN Telephone (HEMTSA) ANGELA ELAM ([id number]) 1980 F Date Time Provider Department 10/01/24 PASCUAL HEALY During your visit today, we recorded the following information about you: Pascual Healy RN 10/01/2024 3:22 PM Signed Pt's Skyrizi not given today, pharmacy does not have enough for the 1200 mg dose (only 600 mg available). Pt agreeable to return on Friday10/05/24 for her first Skyrizi and wants her next venofer done this day also. Other Skyrizi appts will be scheduled on Fridays per pt request and at least 28 days apart, therefore, scheduled on 11/05/24 and 12/03/24 at 1400. Sravani Santana RN aware of changes to schedule. Pascual Healy RN Allergies As of Date: 10/01/2024 (No Known Allergies) Date Reviewed: 10/01/2024 Reviewed by: Virginia Delgado RN - Fully Assessed Reason for Visit: Patient Update [1234] Prescriptions as of 10/11/2024 - valGANciclovir (VALCYTE) 450 mg tablet Take 2 tablets by mouth two times a day for 14 days. - predniSONE (DELTASONE) 20 mg tablet Take 2 tablets by mouth daily after breakfast. - risankizumab-rzaa (SKYRIZI) 360 mg/2.4 mL (150 mg/mL) wearable injector Inject 360 mg subcutaneously every 8 weeks. First dose at week 12, then every 8 weeks after that. - clonazePAM (KLONOPIN) 0.5 mg tablet Take 0.5 mg by mouth two times a day as needed for anxiety. Problem List As Of Date 10/01/2024 Noted Resolved Iron deficiency anemia due to chronic blood los*12/25/2021 Ulcerative pancolitis without complication (HCC*03/31/2023 Anxiety [F41.9] 05/19/2020 Vapes nicotine containing substance [Z72.0] 03/31/2023 Migraines [G43.909] 03/31/2023 Chronic neck pain [M54.2, G89.29] 03/31/2023 C. difficile colitis [A04.72] 03/31/2023 Nicotine use disorder, F17.2 [F17.200] 03/31/2023 Clostridium difficile colitis [A04.72] 04/01/2023 Hypokalemia [E87.6] 09/29/2024 Obesity [E66.9] 09/29/2024 Ulcerative colitis with rectal bleeding (HCC) [*09/29/2024 Thrombocytosis [D75.839] 09/29/2024 Obesity, Class I, BMI 30-34.9 [E66.811] 10/01/2024 Encounter Status:Closed by PASCUAL HEALY on 10/11/24 [facility] CONSULT PROGon 10-01-2024 CONSULT PROG HNO ID: [id number] Author: DERIC RALPH APRN.CNP Service: Gastroenterology Author Type: Nurse Practitioner Type: Consult Progress Note Filed: 10/01/2024 11:49 Note Text: Brief GI progress note Ms. Elam is a 44 year old female with PMHx of ulcerative pancolitis, recurrent Cdiff (2018, 2022), ADHD, anxiety, anemia, , depression, and migraines who presented with diarrhea and rectal bleeding. Interval HPI: Pt states feeling much better since admission. Knows she needs surgery but trying to get home life figured out. Has 6 month old grandson and 13 month old niece she takes care of. 1.) Ulcerative colitis with rectal bleeding (HCC) (POA: Yes) S/p flex sig with Dr. Martinez yesterday Impression: - Small external hemorrhoids were found on perianal and digital rectal exams. - Severe (Vanessa Score 3) ulcerative colitis, worsened since the last examination. Biopsied. - A severe, non-traversable stricture was found in the sigmoid colon. Biopsied to rule out malignancy and Crohn's disease. - The examination was otherwise normal. Recommendation: - [facility]. - Clear liquid diet. - Minimize/avoid antidiarrheals and opiates. - Continue present medications, including Solumedrol 20 mg IV every 8 hours. - Await pathology results. - Obtain CT enterography. - The findings and recommendations were discussed with the patient. Apparently CTE not done IP now? CTAP obtained yesterday IMPRESSION: There is colonic inflammation noted along the rectosigmoid colon with possible stricturing at the proximal sigmoid location. No abscess is seen. No mass lesion is detected. Urothelial thickening of the right side, UTI is in the differential - plans to start Skyrizi today, discharge on prednisone 40 mg PO daily until induction of Skyrizi completed and then Dr. Martinez will start taper after Close follow up as outpatient with Dr. Martinez [facility] NURSING PROGon 10-01-2024 NURSING PROG HNO ID: [id number] Author: ABRIL MCKNIGHT RN Service: Nursing Author Type: Registered Nurse Type: Nursing Progress Note Filed: 10/01/2024 18:30 Note Text: Other: Patient discharged home to self at this time. IV out. Discharge instructions given. Patient took all belongings. [facility] ANES POSTPROC EVALon 024 ANES POSTPROC EVAL HNO ID: [id number] Author: BILL BLAKE MD Service: Anesthesiology Author Type: Anesthesiologist Type: Anesthesia Postprocedure Evaluation Filed: 09/30/2024 11:55 Note Text: POST ANESTHESIA EVALUATION NOTE : 1980 Procedure Summary Date: 09/30/24 Room / Location: Procedures Anesthesia Start: 08 Anesthesia Stop: 0848 Procedure: SIGMOIDOSCOPY Diagnosis: (Disease activity assessment of chronic ulcerative pancolitis) Scheduled Providers: Mak Martinez MD; Bill Blake MD; Jered Montgomery APRN.CRNA; Niki Bunch RN Responsible Provider: Bill Blake MD Anesthesia Type: MAC ASA Status: 3 Anesthesia Type: MAC Last Vitals Vitals Value Taken Time BP 139/74 09/30/24 1110 Temp 37.1 ?C (98.8 ?F) 09/30/24 1110 HR SpO2 98 09/30/24 1110 Resp 16 09/30/24 1110 SpO2 100 % 09/30/24 1110 Post Anesthesia Patient Status Patient Evaluation: bedside. Anticipated Disposition: phase 2 then home. Neurological Status: aware and responsive. Pulmonary Status: breathing comfortably on room air Airway Control: returned to baseline unsupported. Cardiovascular Status: stable. Pain Management: clinically adequate Postoperative Hydration: acceptable. Intraoperative Events: no significant anesthesia events Post Operative Nausea/Vomiting Status: no significant post operative nausea or vomiting Recommendation: continue current plan of care. Anesthesia Observations No Documentation SIGNATURE: Bill Blake MD PATIENT NAME: Angela Elam DATE: September 30, 2024 TIME: 11:54 AM CSN: [id number] [facility] ANES PRE-OPon 09-30-2024 ANES PRE-OP HNO ID: [id number] Author: BILL BLAKE MD Service: Anesthesiology Author Type: Anesthesiologist Type: Anesthesia Preprocedure Evaluation Filed: 09/30/2024 08:18 Note Text: ANESTHESIOLOGY DAY OF SURGERY NOTE : 1980 Procedure Information Date/Time: 09/30/24 0800 Scheduled providers: Mak Martinez MD; Bill Blake MD; Jered Montgomery APRN.OIL PUMPER; Niki Bunch RN Procedure: SIGMOIDOSCOPY Location: Procedures Estimated body mass index is 33.29 kg/m? as calculated from the following: Height as of this encounter: 167.6 cm (5' 5.98 ). Weight as of this encounter: 93.5 kg (206 lb 2.1 oz). Most recent hematocrit and potassium results: Hematocrit 30.6 09/30/2024 Potassium 4.3 09/30/2024 Relevant Problems CARDIO (+) Migraines NEURO-PSYCH (+) Migraines I - PHYSICAL EVALUATION AIRWAY Patient intubated: No. Tracheostomy tube not present Mallampati: II. TM distance: >3 FB. Neck ROM: full ROM without neurological symptoms. Mouth opening: adequate. Short neck: no. Thick neck: no DENTAL Dental findings: teeth intact. Additional exam findings: no II - ANESTHESIA PLAN ASA Score: 3 Anesthetic Plan: MAC The patient is not a current smoker. NPO Status: adequate Beta Trell Monitoring Plan Monitoring plan: standard ASA. Post Procedure Analgesic Plan Postoperative analgesic plan: multimodal analgesia. Informed Consent Anesthetic risks, benefits, alternatives, personnel and consent discussed: yes. Patient / Responsible Alliance Party agrees to proceed: yes Patient / Surrogate agrees to blood products: blood products not planned Significant changes in the patient condition since the History and Physical, not otherwise documented in primary service progress note: no. Potential Anesthesia issues that may suggest increased risk of complications or contraindication to planned procedure: none. Vitals Value Taken Time BP 129/87 09/30/24814 Pulse Resp 18 09/30/24814 Temp 36.7 ?C (98.1 ?F) 09/30/24814 SpO2 99 % 09/30/24814 Facility-Administered Medications as of 09/30/2024 Medication Dose Route Frequency [Transfer Hold] NaCl 0.9% iv flush bag 20 mL INTRAVENOUS PRN [COMPLETED] morphine 4 mg injection 4 mg INTRAVENOUS ONCE [COMPLETED] ondansetron (PF) 4 mg injection (ZOFRAN) 4 mg INTRAVENOUS ONCE [COMPLETED] methylPREDNISolone sod succinate(PF) 60 mg injection (SOLU-Medrol) 60 mg INTRAVENOUS ONCE [Transfer Hold] clonazePAM 0.5 mg tab(s) (KlonoPIN) 0.5 mg ORAL BID PRN [Transfer Hold] methylPREDNISolone sod succinate(PF) 20 mg injection (SOLU-Medrol) 20 mg INTRAVENOUS q 8 H [Transfer Hold] morphine 2 mg injection 2 mg INTRAVENOUS q 4 H PRN [Transfer Hold] ondansetron (PF) 4 mg injection (ZOFRAN) 4 mg INTRAVENOUS q 6 H PRN [Transfer Hold] oxyCODONE IR 5 mg tab(s) (ROXICODONE) 5 mg ORAL q 6 H PRN [] lactated ringers iv infusion 100 mL/hr INTRAVENOUS CONTINUOUS [COMPLETED] potassium chloride ER 40 mEq tab(s) (KLOR-CON) 40 mEq ORAL ONCE Outpatient Medications as of 09/30/2024 Medication Sig predniSONE (DELTASONE) 10 mg tablet Take 2 tablets by mouth once daily. clonazePAM (KLONOPIN) 0.5 mg tablet Take 0.5 mg by mouth two times a day as needed for anxiety. risankizumab-rzaa (SKYRIZI) 360 mg/2.4 mL (150 mg/mL) wearable injector Inject 360 mg subcutaneously every 8 weeks. First dose at week 12, then every 8 weeks after that. I have interviewed and examined the patient. I have reviewed the medical record and/or the pre-anesthesia evaluation, pertinent labs, and test results. This contains updated information obtained within 48 hours of Surgery/Procedure. SIGNATURE: Bill Blake MD PATIENT NAME: Angela Elam DATE: September 30, 2024 TIME: 8:18 AM CSN: [id number] Normal [facility] Basic metabolic 2000 panelon 09-30-2024 Anion gap [Moles/Vol] 8 mmol/L Normal 8-15 [facility] Comment on above: Order Comment: Speci men Type: BLOOD SPECIMENOrdering Facility: [facility] Address: [address] [place] [address] Performed By: #### 2 4321-2 ####[facility] LABORATORYCLIA [id number] [place] [address] [place] Calcium [Mass/Vol] 9.5 mg/dL Normal 8.5-10.2 [facility] Comment on above: Order Comment: Speci men Type: BLOOD SPECIMENOrdering Facility: [facility] Address: [address] [place] [address] Performed By: #### 2 4321-2 ####[facility]ORATORYIA [id number] [place] [address] [place] Chloride [Moles/Vol] 104 mmol/L Normal 98-107 [facility] Comment on above: Order Comment: Speci men Type: BLOOD SPECIMENOrdering Facility: [facility] Address: [address] [place] [address] Performed By: #### 2 4321-2 ####[facility] LABORATORYCLIA [id number] [place] [address] [place] CO2 [Moles/Vol] 25 mmol/L Normal 22-30 [facility] Comment on above: Order Comment: Speci men Type: BLOOD SPECIMENOrdering Facility: [facility] Address: [address] [place] [address] Performed By: #### 2 4321-2 ####[facility] LABORATORYCLIA [id number] [place] [address] [place] Creatinine [Mass/Vol] 0.78 mg/dL Normal 0.58-0.96 [facility] Comment on above: Order Comment: Speci men Type: BLOOD SPECIMENOrdering Facility: [facility] Address: [address] [place] [address] Performed By: #### 2 4321-2 ####[facility]ORATORYIA [id number] [place] [address] [place] Creatinine and Glomerular filtration rate.predicted panel (S/P/Bld) 96 mL/min/1.73m??? Normal >=60 [facility] Comment on above: Order Comment: Speci [facility] Type: BLOOD SPECIMENOrdering Facility: [facility] Address: [address] [place] [address] Result Comment: Michelle mated Glomerular Filtration Rate (eGFR) is calculated using the 2020 CKD-EPI creatinine equation. This equation utilizes serum creatinine, sex, and age as parameters. The creatinine assay has traceable calibration to isotope dilution-mass spectrometry. Refer to KDIGO guidelines for clinical interpretation. In patients with unstable renal function, e.g. those with acute kidney injury, the eGFR may not accurately reflect actual GFR. Performed By: #### 2 4321-2 ####[facility]ORATORYCLIA [id number] [place] [address] [place] Glucose [Mass/Vol] 125 mg/dL High 74-99 [facility] Comment on above: Order Comment: Speci [facility] Type: BLOOD SPECIMENOrdering Facility: [facility] Address: [address] [id number] Result Comment: The [place] Diabetes Association (ADA) provides guidance for cutoff values for fasting glucose and random glucose. The ADA defines fasting as no caloric intake for at least 8 hours. Fasting plasma glucose results between 100 to 125 mg/dL indicate increased risk for diabetes (prediabetes). Fasting plasma glucose results greater than or equal to 126 mg/dL meet the criteria for diagnosis of diabetes. In the absence of unequivocal hyperglycemia, results should be confirmed by repeat testing. In a patient with classic symptoms of hyperglycemia or hyperglycemic crisis, random plasma glucose results greater than or equal to 200 mg/dL meet the criteria for diagnosis of diabetes. Reference: Standards of Medical Care in Diabetes 2016, [place] Diabetes Association. Diabetes Care. 2016.39(Suppl 1). Performed By: #### 2 4321-2 ####[facility] [id number] [place] [address] [place] Potassium [Moles/Vol] 4.3 mmol/L Normal 3.7-5.1 [facility] Comment on above: Order Comment: Speci men Type: BLOOD SPECIMENOrdering Facility: [facility] Address: [address] [place] [address] Performed By: #### 2 4321-2 ####[facility] [id number] [place] [address] [place] Sodium [Moles/Vol] 137 mmol/L Normal 136-144 [facility]ital Comment on above: Order Comment: Speci men Type: BLOOD SPECIMENOrdering Facility: [facility] Address: [address] [place] [address] Performed By: #### 2 4321-2 ####[facility] [id number] [place] [address] [place] Urea nitrogen [Mass/Vol] 12 mg/dL Normal 7-21 [facility] Comment on above: Order Comment: Speci men Type: BLOOD SPECIMENOrdering Facility: [facility] Address: [address] [place] [address] Performed By: #### 2 4321-2 ####[facility] [id number] [place] [address] [place] CBC panel Auto (Bld)on 09-30 Erythrocyte distribution width (RBC) [Ratio] 22.5 % High 11.5-15.0 [facility] Comment on above: Order Comment: Speci men Type: BLOOD SPECIMENOrdering Facility: [facility] Address: [address] [place] [address] Performed By: #### 5 8410-2 ####[facility]ORY[facility] [id number] [place] [address] [place] Hematocrit (Bld) [Volume fraction] 30.6 % Low 36.0-46.0 [facility] Comment on above: Order Comment: Speci men Type: BLOOD SPECIMENOrdering Facility: [facility] Address: [address] [place] [address] Performed By: #### 5 8410-2 ####[facility] [id number] [place] [address] [place] Hemoglobin (Bld) [Mass/Vol] 8.0 g/dL Low 11.5-15.5 [facility] Comment on above: Order Comment: Speci men Type: BLOOD SPECIMENOrdering Facility: [facility] Address: [address] [place] [address] Performed By: #### 5 8410-2 ####[facility] [id number] [place] [address] [place] MCH (RBC) [Entitic mass] 19.5 pg Low 26.0-34.0 [facility] Comment on above: Order Comment: Speci men Type: BLOOD SPECIMENOrdering Facility: [facility] Address: [address] [place] [address] Performed By: #### 5 8410-2 ####[facility] [id number] [place] [address] [place] MCHC (RBC) [Mass/Vol] 26.1 g/dL Low 30.5-36.0 [facility] Comment on above: Order Comment: Speci men Type: BLOOD SPECIMENOrdering Facility: [facility] Address: [address] [place] [address] Performed By: #### 5 8410-2 ####[facility]ORYIA [id number] [place] [address] [place] MCV (RBC) [Entitic vol] 74.6 fL Low 80.0-100.0 [facility] Comment on above: Order Comment: Speci men Type: BLOOD SPECIMENOrdering Facility: [facility] Address: [address] [place] [address] Performed By: #### 5 8410-2 ####[facility] [id number] [place] [address] [place] Nucleated RBC (Bld) [#/Vol] 10*3/uL Normal <0.01 [facility] Comment on above: Order Comment: Speci men Type: BLOOD SPECIMENOrdering Facility: [facility] Address: [address] [place] [address] Performed By: #### 5 8410-2 ####[facility] [id number] [place] [address] [place] Platelet mean volume (Bld) [Entitic vol] 8.4 fL Low 9.0-12.7 [facility] Comment on above: Order Comment: Speci men Type: BLOOD SPECIMENOrdering Facility: [facility] Address: [address] [place] [address] Performed By: #### 5 8410-2 ####[facility]ORYIA [id number] [facility] [place] [address] [place] Platelets (Bld) [#/Vol] 471 10*3/uL High 150-400 [facility] Comment on above: Order Comment: Speci men Type: BLOOD SPECIMENOrdering Facility: [facility] Address: [address] [place] [address] Performed By: #### 5 8410-2 ####[facility] [id number] [place] [address] [facility] OF [place] RBC (Bld) [#/Vol] 4.10 10*6/uL Normal 3.90-5.20 [facility] Comment on above: Order Comment: Speci men Type: BLOOD SPECIMENOrdering Facility: [facility] Address: [address] [place] [address] Performed By: #### 5 8410-2 ####[facility]ORYIA [id number] [address] [place] [address] [facility] WBC (Bld) [#/Vol] 12.49 10*3/uL High 3.70-11.00 [facility] Comment on above: Order Comment: Speci men Type: BLOOD SPECIMENOrdering Facility: [facility] Address: [address] [place] [address] Performed By: #### 5 8410-2 ####[facility] [id number] [address] [address] [facility] CONSULT PROGon 09-30-2024 CONSULT PROG HNO ID: [id number] Author: VAHE MARADIAGA APRN.COUNCILPERSON Service: Gastroenterology Author Type: Nurse Practitioner Type: Consult Progress Note Filed: 09/30/2024 14:12 Note Text: Brief GI progress note: S/p sigmoidoscopy today with findings of: Impression: - Small external hemorrhoids were found on perianal and digital rectal exams. - Severe (Vanessa Score 3) ulcerative colitis, worsened since the last examination. Biopsied. - A severe, non-traversable stricture was found in the sigmoid colon. Biopsied to rule out malignancy and Crohn's disease. - The examination was otherwise normal. Recommendation: - [facility]. - Clear liquid diet. - Minimize/avoid antidiarrheals and opiates. - Continue present medications, including Solumedrol 20 mg IV every 8 hours. - Await pathology results. - Obtain CT A/P (enterography preferred however not performed as inpatient). - The findings and recommendations were discussed with the patient per Dr. Martinez. Normal [facility] CT ABD/PEL W IVCONon 10-31-[address] ABD/PEL W IVCON * * *Final Report* * * DATE OF EXAM: Sep 30 2024 4:09PM [facility] 0530 - CT ABD/PEL W IVCON / PROCEDURE REASON: Crohn's exacerbation * * * * Physician Interpretation * * * * EXAMINATION: CT ABDOMEN AND PELVIS WITH IV CONTRAST CLINICAL HISTORY: Crohn's exacerbation. Stricture of the sigmoid colon TECHNIQUE: CT of the abdomen and pelvis was performed using standard technique, scanning from just above the dome of the diaphragm to the symphysis pubis. MQ: CTAP_3 Contrast: IV: 100 ml of Omnipaque 350 Oral: 24 ml of Omni 240 10-25ml diluted with water CT Radiation dose: Integrated Dose-length product (DLP) for this visit = 780 mGy*cm. CT Dose Reduction Employed: Automated exposure control(AEC) and iterative recon COMPARISON: 03/30/2023. RESULT: Liver: Hepatic cysts are noted. For example in segment V/ there is a cyst approximately 2.2 cm series 2 image 34. Hepatic steatosis is seen. Biliary: No bile duct dilation. Gallbladder is grossly unremarkable Spleen: No mass. No splenomegaly. Pancreas: No mass or duct dilation. Adrenals: No mass. Kidneys: Slightly dilated right renal pelvis and mild right-sided urothelial thickening along the ureter. Left renal collecting system appears unremarkable. Renal cysts are seen GI tract: There is moderate stool seen in the right colon and transverse colon. There is mucosal enhancement of the sigmoid colon and rectosigmoid colon with decrease colonic fold suggesting chronic inflammation. There is possible stricturing at the proximal sigmoid colon with stranding surrounding the sigmoid colon for example on series 2 image 93. This is suggestive of colitis. The appendix appears unremarkable. Lymph nodes: No abdominal or pelvic lymphadenopathy. Mesentery/Peritoneum: No ascites or mass. Retroperitoneum: No mass. Vasculature: - Abdominal aorta and iliac arteries: Atherosclerotic calcifications without aneurysm. - Celiac and SMA: Patent without stenosis. - Portal venous system (SMV, splenic vein, portal vein and branches): Patent. - Hepatic veins: Patent. Pelvis: No mass, ascites or fluid collection. Tubal ligation clips. Bladder unremarkable. Bones/Soft Tissues: Mild degenerative changes of the spine Lower thorax: No additional findings Localizer images: No additional findings. IMPRESSION: There is colonic inflammation noted along the rectosigmoid colon with possible stricturing at the proximal sigmoid location. No abscess is seen. No mass lesion is detected. Urothelial thickening of the right side, UTI is in the differential. Self Pay Specialist: REINALDO Transcribe Date/Time: Oct 01 2024 7:30A Dictated by : BRANDAN FLOR MD This examination was interpreted and the report reviewed and electronically signed by: BRANDAN FLOR MD on Oct 01 2024 7:45AM EST [id number] Normal [facility] Flexible Sigmoidoscopyon Flexible sigmoidoscopy [facility] Gastrointestinal Endoscopy Patient Name: Angela Elam Procedure Date: 09/30/2024 8:25 AM Date of : 1980 Admit Type: Inpatient Age: 44 Room: [address] [place] [address] Gender: Female Note Status: Finalized Attending MD: Mak Martinez MD, [id number] Procedure: Flexible Sigmoidoscopy Indications: Disease activity assessment of chronic ulcerative pancolitis Providers: Mak Martinez MD Patient Profile: This is a 44 year old female. Refer to note in patient chart for documentation of history and physical. Referring Physician: Deric Ralph CNP (Referring MD) Medicines: Monitored Anesthesia Care Complications: No immediate complications. Requesting Provider: Procedure: Pre-Anesthesia Assessment: - Prior to the procedure, a History and Physical was performed, and patient medications and allergies were reviewed. The patient's tolerance of previous anesthesia was also reviewed. The risks and benefits of the procedure and the sedation options and risks were discussed with the patient. All questions were answered, and informed consent was obtained. Prior Anticoagulants: The patient has taken no anticoagulant or antiplatelet agents. ASA Grade Assessment: III - A patient with severe systemic disease. After reviewing the risks and benefits, the patient was deemed in satisfactory condition to undergo the procedure. After obtaining informed consent, the scope was passed under direct vision. The Endosonoscope was introduced through the anus and advanced to the sigmoid colon. The flexible sigmoidoscopy was accomplished without difficulty. The patient tolerated the procedure well. Moderate Sedation: MAC anesthesia was administered by the anesthesia team. Total Procedure Duration: 0 hours 10 minutes 33 seconds Findings: Small external hemorrhoids were found on perianal and digital rectal exams. Inflammation was found in a continuous and circumferential pattern from the rectum to the sigmoid colon. This was graded as Vanessa Score 3 (severe, with spontaneous bleeding, ulcerations), and when compared to the previous examination, the findings are worsened. Biopsies were taken from the sigmoid colon (Bottle B) and rectum (Bottle C) with a cold forceps for histology. Verification of patient identification for the specimen was done by the physician and nurse. A severe stenosis measuring of unknown length x 8 mm (inner diameter) was found in the sigmoid colon at 25 cm from the anal verge and was non-traversed. Biopsies were taken with a cold forceps for histology to rule out dysplasia and Crohn's disease. Verification of patient identification for the specimen was done by the physician and nurse. The pathology specimen was placed into Bottle A. The exam was otherwise without abnormality. Impression: - Small external hemorrhoids were found on perianal and digital rectal exams. - Severe (Vanessa Score 3) ulcerative colitis, worsened since the last examination. Biopsied. - A severe, non-traversable stricture was found in the sigmoid colon. Biopsied to rule out malignancy and Crohn's disease. - The examination was otherwise normal. Recommendation: - Return patient to [facility] for ongoing care. - Clear liquid diet. - Minimize/avoid antidiarrheals and opiates. - Continue present medications, including Solumedrol 20 mg IV every 8 hours. - Await pathology results. - Obtain CT enterography. - The findings and recommendations were discussed with the patient. Attending Participation: I personally performed the entire procedure. Scope In: 8:35:19 AM Scope Out: 8:45:52 AM MD Mak Rolon MD 09/30/2024 8:55:41 AM This report has been signed electronically by Mak Martinez MD Number of Addenda: 0 Note Initiated On: 09/30/2024 8:25 AM Estimated Blood Loss: Estimated blood loss was minimal. Normal [facility] SURGICAL PATHOLOGYon 09-30- 024 ADDENDUM 1: Normal [facility] Comment on above: Order Comment: Speci men Type: TISSUE SPECIMEN [facility] Address: [address] [place] [address] Result Comment: The sigmoid biopsy (part A) is POSITIVE for a few CMV inclusions on immunostain. CMV immunostain on the rectum biopsy (parts C) is POSITIVE in a few viral inclusions as well. Addendum electronically signed by Glen Corea MD on 10/05/2024 at 3:32 PM Performed By: #### S #### [facility] CLIA [id number] [address] [place] [address] [place] [facility] CLIA [id number] [address] [place] [address] [place] CASE REPORT [facility] Comment on above: Order Comment: Speci men Type: TISSUE SPECIMEN [facility] Address: [address] [place] [address] Result Comment: Surg [facility] Pathology Report Case: [id number] Authorizing Provider: Mak Martinez MD Collected: 09/30/2024 08:39 AM Ordering Location: Procedures Received: 09/30/2024 08:58 AM Pathologist: Glen Corea MD Specimens: A) - Colon, Sigmoid, Biopsy, @ 25 cm, stricture, r/o dysplasia B) - Colon, Sigmoid, Biopsy, r/o colitis, dysplasia & CMV C) - Rectum, Biopsy, r/o colitis, dysplasia & CMV Performed By: #### S #### [facility] CLIA [id number] [address] [place] [address] [place] [facility] CLIA [id number] [address] [place] [address] [place] DIAGNOSIS COMMENT CMV immunostains are pending on the sigmoid and rectum biopsies (parts A and C). [facility] Comment on above: Order Comment: Speci men Type: TISSUE SPECIMEN [facility] Address: [address] [place] [address] Performed By: #### S #### [facility] CLIA [id number] [address] [place] [address] [place] [facility] CLIA [id number] [address] [place] [address] [place] FINAL DIAGNOSIS Normal [facility] Comment on above: Order Comment: Speci men Type: TISSUE SPECIMEN [facility] Address: [address] [place] [address] Result Comment: A. S igmoid colon, biopsy: - Predominantly ulcer and granulation tissue. - No dysplasia seen in the scant colonic epithelium. B. Sigmoid, biopsy: - Chronic active colitis. - Negative for dysplasia. C. Rectum, biopsy: - Chronic active proctitis. - Negative for dysplasia. - See comment. Performed By: #### S #### [facility] CLIA [id number] [address] [place] [address] LAB CLIA [id number] [address] [place] [address] FINAL PERFORMING LAB Normal [facility] Comment on above: Order Comment: Speci men Type: TISSUE SPECIMEN [facility] Address: [address] [place] [address] Result Comment: Diag nostic interpretation performed at [facility], [address] [place] [address] CLIA# [id number] [employer] Security Alarm Installer: Coleen Cramer M.D. Performed By: #### S #### [facility] CLIA [id number] [address] [place] [address] LAB CLIA [id number] [address] [place] [address] GROSS DESCRIPTION [facility] Comment on above: Order Comment: Speci men Type: TISSUE SPECIMEN [facility]: [facility] Address: [address] [place] [address] Result Comment: A. C olon, Sigmoid, Biopsy Received in formalin are multiple pieces of wise-red, soft tissue aggregating to 0.8 x 0.6 x 0.2 cm. Totally submitted in two cassettes. B. Colon, Sigmoid, Biopsy Received in formalin are multiple pieces of wise, soft tissue aggregating to 0.8 x 0.7 x 0.1 cm. Totally submitted in two cassettes. C. Rectum, Biopsy Received in formalin are multiple pieces of wise, soft tissue aggregating to 0.7 x 0.6 x 0.2 cm. Totally submitted in one cassette. JCDM September 30, 2024 2:09 PM Gross examination performed at [facility], [address] [place] [address] Performed By: #### S #### [facility] CLIA [id number] [address] [place] [address] [place] [facility] CLIA [id number] [address] [facility] [id number] [id number] [place] Basic metabolic 2000 panelon 09-29-2024 Anion gap [Moles/Vol] 11 mmol/L Normal 8-15 [facility] Comment on above: Order Comment: Speci men Type: BLOOD SPECIMENOrdering Facility: [facility] Address: [address] [place] [address] Performed By: #### 2 4321-2, ####[facility] [id number] [place] [address] [place] Calcium [Mass/Vol] 9.5 mg/dL Normal 8.5-10.2 [facility] Comment on above: Order Comment: Speci men Type: BLOOD SPECIMENOrdering Facility: [facility] Address: [address] [place] [address] Performed By: #### 2 4321-2, ####[facility] [id number] [place] [address] [place] Chloride [Moles/Vol] 107 mmol/L Normal 98-107 [facility] Comment on above: Order Comment: Speci men Type: BLOOD SPECIMENOrdering Facility: [facility] Address: [address] [place] [address] Performed By: #### 2 4321-2, ####[facility] [id number] [place] [address] [place] CO2 [Moles/Vol] 22 mmol/L Normal 22-30 [facility] Comment on above: Order Comment: Speci men Type: BLOOD SPECIMENOrdering Facility: [facility] Address: [address] [place] [address] Performed By: #### 2 4321-2, ####[facility]ORY[facility] [id number] [place] [address] [place] Creatinine [Mass/Vol] 0.87 mg/dL Normal 0.58-0.96 [facility] Comment on above: Order Comment: Speci men Type: BLOOD SPECIMENOrdering Facility: [facility] Address: [address] [place] [address] Performed By: #### 2 4321-2, ####[facility]ORY[facility] [id number] [place] [address] [place] Creatinine and Glomerular filtration rate.predicted panel (S/P/Bld) 84 mL/min/1.73m??? Normal >=60 [facility] Comment on above: Order Comment: Speci men Type: BLOOD SPECIMENOrdering Facility: [facility] Address: [address] [place] [address] Result Comment: Michelle mated Glomerular Filtration Rate (eGFR) is calculated using the 2020 CKD-EPI creatinine equation. This equation utilizes serum creatinine, sex, and age as parameters. The creatinine assay has traceable calibration to isotope dilution-mass spectrometry. Refer to KDIGO guidelines for clinical interpretation. In patients with unstable renal function, e.g. those with acute kidney injury, the eGFR may not accurately reflect actual GFR. Performed By: #### 2 4321-2, ####[facility] [id number] [place] [address] [place] Glucose [Mass/Vol] 116 mg/dL High 74-99 [facility]spital Comment on above: Order Comment: Speci men Type: BLOOD SPECIMENOrdering Facility: [facility] Address: [address] [id number] Result Comment: The [place] Diabetes Association (ADA) provides guidance for cutoff values for fasting glucose and random glucose. The ADA defines fasting as no caloric intake for at least 8 hours. Fasting plasma glucose results between 100 to 125 mg/dL indicate increased risk for diabetes (prediabetes). Fasting plasma glucose results greater than or equal to 126 mg/dL meet the criteria for diagnosis of diabetes. In the absence of unequivocal hyperglycemia, results should be confirmed by repeat testing. In a patient with classic symptoms of hyperglycemia or hyperglycemic crisis, random plasma glucose results greater than or equal to 200 mg/dL meet the criteria for diagnosis of diabetes. Reference: Standards of Medical Care in Diabetes 2016, [place] [employer]. Diabetes Care. 2016.39(Suppl 1). Performed By: #### 2 432-2, ####[facility] [id number] [place] [address] [place] Potassium [Moles/Vol] 4.2 mmol/L Normal 3.7-5.1 [facility] Comment on above: Order Comment: Ayaka farrell Type: BLOOD SPECIMENOrdering Facility: [facility] Address: [address] [place] [address] Performed By: #### 2 43212-02, ####[facility] [id number] [place] [address] [place] Sodium [Moles/Vol] 140 mmol/L Normal 136-144 [facility] Comment on above: Order Comment: Ayaka farrell Type: BLOOD SPECIMENOrdering Facility: [facility] Address: [address] [place] [address] Performed By: #### 2 4321-01, ####[facility] [id number] [place] [address] [place] Urea nitrogen [Mass/Vol] 17 mg/dL Normal 7-21 [facility] Comment on above: Order Comment: Ayaka farrell Type: BLOOD SPECIMENOrdering Facility: [facility] Address: [address] [place] [address] Performed By: #### 2 2, ####[facility] [id number] [place] [address] [place] C diff Tox gens Stl Ql ART+p robe 09-29-2024 C. difficile toxin genes ART+probe Ql (Stl) Negative Normal Negative for C. difficile toxin by PCR [facility] Comment on above: Order Comment: Speci men Type: STOOL SPECIMENOrdering Facility: [facility] Address: [address] [place] [address] Performed By: #### 5 4067-4, 59973-7, 13250-9 ####[facility] LABCLIA [id number] [address] [place] [address] [place] CBC W Auto Differential pane l (Bld)on 09-29-2024 Basophils (Bld) [#/Vol] 10*3/uL Normal <0.11 [facility] Comment on above: Order Comment: Speci men Type: BLOOD SPECIMENOrdering Facility: [facility] Address: [address] [place] [address] Performed By: #### 5 7021-8 ####[facility] LABORATORYCLIA [id number] [place] [address] [place] Basophils/100 WBC (Bld) 0.2 % Normal [facility] Comment on above: Order Comment: Speci men Type: BLOOD SPECIMENOrdering Facility: [facility] Address: [address] [place] [address] Performed By: #### 5 7021-8 ####[facility] [id number] [place] [address] [place] Differential cell count method Nom (Bld) Auto Normal [facility] Comment on above: Order Comment: Speci men Type: BLOOD SPECIMENOrdering Facility: [facility] Address: [address] [place] [address] Performed By: #### 5 7021-8 ####[facility] LABORATORYIA [id number] [place] [address] [place] Eosinophils (Bld) [#/Vol] 0.06 10*3/uL Normal <0.46 [facility] Comment on above: Order Comment: Speci men Type: BLOOD SPECIMENOrdering Facility: [facility] Address: [address] [place] [address] Performed By: #### 5 7021-8 ####[facility] LABORATORYIA [id number] [place] [address] [place] Eosinophils/100 WBC (Bld) 0.5 % Normal [facility] Comment on above: Order Comment: Speci men Type: BLOOD SPECIMENOrdering Facility: [facility] Address: [address] [place] [address] Performed By: #### 5 7021-8 ####[facility] [id number] [place] [address] [place] Erythrocyte distribution width (RBC) [Ratio] 22.0 % High 11.5-15.0 [facility] Comment on above: Order Comment: Speci men Type: BLOOD SPECIMENOrdering Facility: [facility] Address: [address] [place] [address] Performed By: #### 5 7021-8 ####[facility] [id number] [place] [address] [place] Hematocrit (Bld) [Volume fraction] 30.1 % Low 36.0-46.0 [facility] Comment on above: Order Comment: Speci men Type: BLOOD SPECIMENOrdering Facility: [facility] Address: [address] [place] [address] Performed By: #### 5 7021-8 ####[facility] [id number] [place] [address] [place] Hemoglobin (Bld) [Mass/Vol] 8.3 g/dL Low 11.5-15.5 [facility] Comment on above: Order Comment: Speci men Type: BLOOD SPECIMENOrdering Facility: [facility] Address: [address] [place] [address] Performed By: #### 5 7021-8 ####[facility] [id number] [place] [address] [place] Immature granulocytes (Bld) [#/Vol] 0.08 10*3/uL Normal <0.10 [facility] Comment on above: Order Comment: Speci men Type: BLOOD SPECIMENOrdering Facility: [facility] Address: [address] [place] [address] Performed By: #### 5 7021-8 ####[facility] [id number] [place] [address] [place] Immature granulocytes/100 WBC (Bld) 0.7 % Normal [facility] Comment on above: Order Comment: Speci men Type: BLOOD SPECIMENOrdering Facility: [facility] Address: [address] [place] [address] Performed By: #### 5 7021-8 ####[facility] LABORATORYIA [id number] [place] [address] [place] Lymphocytes (Bld) [#/Vol] 3.06 10*3/uL Normal 1.00-4.00 [facility] Comment on above: Order Comment: Speci men Type: BLOOD SPECIMENOrdering Facility: [facility] Address: [address] [place] [address] Performed By: #### 5 7021-8 ####[facility] [id number] [place] [address] [place] Lymphocytes/100 WBC (Bld) 25.3 % Normal [facility] Comment on above: Order Comment: Speci men Type: BLOOD SPECIMENOrdering Facility: [facility] Address: [address] [place] [address] Performed By: #### 5 7021-8 ####[facility] LABORATORYIA [id number] [place] [address] [place] MCH (RBC) [Entitic mass] 20.2 pg Low 26.0-34.0 [facility] Comment on above: Order Comment: Speci men Type: BLOOD SPECIMENOrdering Facility: [facility] Address: [address] [place] [address] Performed By: #### 5 7021-8 ####[facility] LABORATORYIA [id number] [place] [address] [place] MCHC (RBC) [Mass/Vol] 27.6 g/dL Low 30.5-36.0 [facility] Comment on above: Order Comment: Speci men Type: BLOOD SPECIMENOrdering Facility: [facility] Address: [address] [place] [address] Performed By: #### 5 7021-8 ####[facility] LABORATORYCLIA [id number] [facility] [place] [address] [place] MCV (RBC) [Entitic vol] 73.2 fL Low 80.0-100.0 [facility] Comment on above: Order Comment: Speci men Type: BLOOD SPECIMENOrdering Facility: [facility] Address: [address] [place] [address] Performed By: #### 5 7021-8 ####[facility] LABORATORYCLIA [id number] [facility] [place] [address] [place] Monocytes (Bld) [#/Vol] 0.78 10*3/uL Normal <0.87 [facility] Comment on above: Order Comment: Speci men Type: BLOOD SPECIMENOrdering Facility: [facility] Address: [address] [place] [address] Performed By: #### 5 7021-8 ####[facility] LABORATORYCLIA [id number] [place] [address] [place] Monocytes/100 WBC (Bld) 6.4 % Normal [facility] Comment on above: Order Comment: Speci men Type: BLOOD SPECIMENOrdering Facility: [facility] Address: [address] [place] [address] Performed By: #### 5 7021-8 ####[facility] LABORATORYCLIA [id number] [facility] [place] [address] [place] Neutrophils (Bld) [#/Vol] 8.11 10*3/uL High 1.45-7.50 [facility] Comment on above: Order Comment: Speci men Type: BLOOD SPECIMENOrdering Facility: [facility] Address: [address] [place] [address] Performed By: #### 5 7021-8 ####[facility] LABORATORYCLIA [id number] [facility] [place] [address] [place] Neutrophils/100 WBC (Bld) 66.9 % Normal [facility] Comment on above: Order Comment: Speci men Type: BLOOD SPECIMENOrdering Facility: [facility] Address: [address] [place] [address] Performed By: #### 5 7021-8 ####[facility] LABORATORYCLIA [id number] [place] [address] [place] Nucleated RBC (Bld) [#/Vol] 10*3/uL Normal <0.01 [facility] Comment on above: Order Comment: Speci men Type: BLOOD SPECIMENOrdering Facility: [facility] Address: [address] [place] [address] Performed By: #### 5 7021-8 ####[facility] [id number] [place] [address] [place] Nucleated RBC/100 WBC (Bld) [Ratio] 0.0 /100 WBC Normal [facility] Comment on above: Order Comment: Speci men Type: BLOOD SPECIMENOrdering Facility: [facility] Address: [address] [place] [address] Performed By: #### 5 7021-8 ####[facility] [id number] [place] [address] [place] Platelet mean volume (Bld) [Entitic vol] 8.1 fL Low 9.0-12.7 [facility] l Comment on above: Order Comment: Speci men Type: BLOOD SPECIMENOrdering Facility: [facility] Address: [address] [place] [address] Performed By: #### 5 7021-8 ####[facility] [id number] [place] [address] [place] Platelets (Bld) [#/Vol] 429 10*3/uL High 150-400 [facility] Comment on above: Order Comment: Speci men Type: BLOOD SPECIMENOrdering Facility: [facility] Address: [address] [place] [address] Performed By: #### 5 7021-8 ####[facility] LABORATORYIA [id number] [place] [address] [facility] [place] RBC (Bld) [#/Vol] 4.11 10*6/uL Normal 3.90-5.20 [facility] Comment on above: Order Comment: Speci men Type: BLOOD SPECIMENOrdering Facility: [facility] Address: [address] [place] [address] Performed By: #### 5 7021-8 ####[facility] LABORATORYIA [id number] [address] [place] WBC (Bld) [#/Vol] 12.11 10*3/uL High 3.70-11.00 [facility] Comment on above: Order Comment: Speci men Type: BLOOD SPECIMENOrdering Facility: [facility] Address: [address] [place] [address] Performed By: #### 5 7021-8 ####[facility] [id number] [address] [place] CBC panel Auto (Bld)on 09-29 Erythrocyte distribution width (RBC) [Ratio] 22.4 % High 11.5-15.0 [facility] Comment on above: Order Comment: Speci men Type: BLOOD SPECIMENOrdering Facility: [facility] Address: [address] [place] [address] Performed By: #### 5 8410-2 ####[facility] [id number] [place] [address] [facility] Hematocrit (Bld) [Volume fraction] 30.3 % Low 36.0-46.0 [facility] Comment on above: Order Comment: Speci men Type: BLOOD SPECIMENOrdering Facility: [facility] Address: [address] [place] [address] Performed By: #### 5 8410-2 ####[facility] LABORATORYIA [id number] [place] [address] [place] Hemoglobin (Bld) [Mass/Vol] 8.3 g/dL Low 11.5-15.5 [facility] Comment on above: Order Comment: Speci men Type: BLOOD SPECIMENOrdering Facility: [facility] Address: [address] [place] [address] Performed By: #### 5 8410-2 ####[facility] LABORATORYIA [id number] [address] [place] MCH (RBC) [Entitic mass] 20.4 pg Low 26.0-34.0 [facility] Comment on above: Order Comment: Speci men Type: BLOOD SPECIMENOrdering Facility: [facility] Address: [address] [place] [address] Performed By: #### 5 8410-2 ####[facility] [id number] [address] [place] MCHC (RBC) [Mass/Vol] 27.4 g/dL Low 30.5-36.0 [facility] Comment on above: Order Comment: Speci men Type: BLOOD SPECIMENOrdering Facility: [facility] Address: [address] [place] [address] Performed By: #### 5 8410-2 ####[facility] [id number] [address] [place] MCV (RBC) [Entitic vol] 74.4 fL Low 80.0-100.0 [facility] Comment on above: Order Comment: Speci men Type: BLOOD SPECIMENOrdering Facility: [facility] Address: [address] [place] [address] Performed By: #### 5 8410-2 ####[facility] LABORATORYIA [id number] [address] OF [facility] Nucleated RBC (Bld) [#/Vol] 10*3/uL Normal <0.01 [facility] Comment on above: Order Comment: Speci men Type: BLOOD SPECIMENOrdering Facility: [facility] Address: [address] [place] [address] Performed By: #### 5 8410-2 ####[facility] LABORATORYCLIA [id number] [facility] [place] [address] [place] Platelet mean volume (Bld) [Entitic vol] 8.5 fL Low 9.0-12.7 [facility] Comment on above: Order Comment: Speci men Type: BLOOD SPECIMENOrdering Facility: [facility] Address: [address] [place] [address] Performed By: #### 5 8410-2 ####[facility] LABORATORYCLIA [id number] [place] [address] [place] Platelets (Bld) [#/Vol] 433 10*3/uL High 150-400 [facility] Comment on above: Order Comment: Speci men Type: BLOOD SPECIMENOrdering Facility: [facility] Address: [address] [place] [address] Performed By: #### 5 8410-2 ####[facility] [id number] [place] [address] [place] RBC (Bld) [#/Vol] 4.07 10*6/uL Normal 3.90-5.20 [facility] Comment on above: Order Comment: Speci men Type: BLOOD SPECIMENOrdering Facility: [facility] Address: [address] [place] [address] Performed By: #### 5 8410-2 ####[facility] [id number] [place] [address] [place] WBC (Bld) [#/Vol] 10.69 10*3/uL Normal 3.70-11.00 [facility] Comment on above: Order Comment: Speci men Type: BLOOD SPECIMENOrdering Facility: [facility] Address: [address] [place] [address] Performed By: #### 5 8410-2 ####[facility] LABORATORYIA [id number] [place] [address] [facility] [place] CONSULTon 09-29-2024 CONSULT HNO ID: [id number] Author: DERIC RALPH APRN.CNP Service: Gastroenterology Author Type: Nurse Practitioner Type: Consults Filed: 09/29/2024 15:58 Note Text: GI INITIAL CONSULT NOTE SERVICE DATE: 09/29/2024 SERVICE TIME: 1400 REASON FOR CONSULT: UC colitis flare REQUESTING PHYSICIAN: Dr. Sterling PRIMARY CARE PHYSICIAN: Beck Tee DO, DO ASSESSMENT/PLAN 1.) Ulcerative colitis with rectal bleeding (HCC) (POA: Yes) Leukocytosis noted on admission resolved today, afebrile Hgb in 8s this morning, last checked 10/2023 was 11 CRP normal as high as 6.3 last year Baseline bowel habits 8-10 stools per day but normally not with blood which is new over past 3 days Abd exam: soft, non-distended, mild-moderate tenderness on palpation Flex sig 2022 - details listed in HPI On chronic prednisone 20 mg PO daily with plans to start Skyrizi this Friday Previously followed with Dr. Jc and was planning for colectomy but given current home situation that is on hold (caring for niece and grandson, no other family support) No imagining done - obtain CTAP for further evaluation - agree with stool studies pending, added fecal madeleine - IV solumedrol 20 mg Q8 unless Stool tests result positive Will discuss case with Dr. Robles and update Dr. Martinez ADDENDUM 1550: Discussed case with Dr. Robles and Dr. Martinez - plan for flex sig tomorrow. Will hold on CTAP and just get abdominal xray for now. IV steroids for at least 48 hours if improving then will plan for discharge on prednisone 40 mg PO daily until her second dose Skyrizi and then start tapering after that. Active Problems: Iron deficiency anemia due to chronic blood loss (POA: Yes) Anxiety (POA: Yes) Vapes nicotine containing substance (POA: Yes) Migraines (POA: Yes) Hypokalemia (POA: Yes) Obesity (POA: Yes) Thrombocytosis (POA: Yes) Subjective Ms. Elam is a 44 year old female with PMHx of ulcerative pancolitis, recurrent Cdiff (2018, 2022), ADHD, anxiety, anemia, , depression, and migraines who presented with diarrhea and rectal bleeding. Pt states she had not been doing great but planning to start Skyrizi Friday to try and hold off on having surgery. She has been on multiple medications in the past with either limited response or SE. Pt states 3 days ago started with having frequent stools in the morning and then started seeing blood which she does not normally see. Having mainly mid abdomen pain. [facility] visit 05/21/2024 She was diagnosed with UC in 2019 and has tried mesalamine, budesonide, Humira (didn't seem to work, had 3 injections), Entyvio x 1 year (afforded partial control), Stelara up to every 6 weeks and Zeposia (intolerable d/t visual disturbances). 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 diff twice on biologic therapy. Last GI OV was in 03/2023 to establish care for UC. Remicade was started. She had difficulty weaning off prednisone. Diarrhea worsened when she tapered below 20 mg/day. Infliximab levels were undetectable and her antibody titer was mildly positive (5.4) so her dose was increased from 5 to 10 mg q8wks and Imuran was added. She developed a rash while taking Imuran, so she decided to stop this and Remicade. Rash resolved after stopping Imuran. She saw Dr. Jc on 01/08/24 and was ready to proceed with surgery, but postponed this because she unexpectedly had to start taking care of her niece without much help at home. She has been on prednisone 10-20 mg/day as monotherapy for the better part of 2023, but stopped this 1 month ago. Prior GI workup Sigmoidoscopy: 04/01/23: Dr. Roberto: for bloody diarrhea, UC surveillance: - Perianal skin tags found on perianal exam. - Pseudomembranous colitis. - Severe (Vanessa Score 3) ulcerative colitis. Biopsied. Path: A. Sigmoid colon, biopsy: - Chronic active colitis with ulcer exudate. - Negative for dysplasia. B. Rectum, biopsy: - Chronic active proctitis. - Negative for dysplasia. KUB: 03/31/23: No bowel obstruction or definite visualization of inflammation. CTAP w/IV con: 03/30/23: Findings consistent with colitis. Colon: 10/15/21: Dr. Yusuf: - Severe active ulcerative pancolitis with pseudopoyposis Prep was good Recommendations: Continue budesonide and Stelara Path: Chronic active colitis FUNCTIONAL STATUS: Independent Labs: WBC 10.69, Hgb 8.3, Hct 30.3, Plt 433, MCV 74.4, BUN 17, Cr 0.87, LFTs unremarkable PAST MEDICAL HISTORY Diagnosis Date ADHD (attention deficit hyperactivity disorder) Anemia Anxiety Blood disorder 12/2021 Crohn's disease (HCC) Depression Hypoproteinemia (HCC) Irritable bowel disease Keratoderma Migraine Ulcerative colitis (HCC) PAST SURGICAL HISTORY Procedure Laterality Date COLONSCOPY SCREENING HIGH RISK LEEP PROCEDURE (W NOTE) LIGATE FALLOPIAN TUBE FAMILY HISTORY Problem Relation Age of Onset Asthma (more content not included)... Normal [facility] CRP SerPl-mCncon 09-29-2024 CRP [Mass/Vol] 0.6 mg/dL Normal <0.9 [facility] Comment on above: Order Comment: Speci bud Type: BLOOD SPECIMENOrdering Facility: [facility] Address: [address] [place] [address] Performed By: #### 1 988-5, 04114-2 ####[facility] LABORATORYCLIA [id number] [facility] [address] [place] Calprotectin (Stl) [Mass/Mas s]on 09-29-2024 CALPROTECTIN, FECAL INTERP Elevated Abnormal Normal [facility] Comment on above: Order Comment: Speci bud Type: STOOL SPECIMENOrdering Facility: [facility] Address: [address] [place] [address] Result Comment: Inte rpretation: <50.0 ug/g: Normal 50.0 ug/g - 120.0 ug/g: Borderline elevated. Re-evaluation in 4-6 weeks is recommended if clinically indicated. >120.0 ug/g: Elevated Performed By: #### 5 4067-4, 81908-3, 25095-9 ####[facility] LABCLIA [id number] [facility] [id number] [address] [place] CALPROTECTIN, FECAL QUANTITATIVE 3080 ug/g High <50 [facility] Comment on above: Order Comment: Speci men Type: STOOL SPECIMENOrdering Facility: [facility] Address: [address] [place] [address] Performed By: #### 5 4067-4, 39561-1, 74010-6 ####[facility] LABCLIA [id number] JONATHAN WADESBORODESGarret [id number] [place], [place] [id number] [place] Comprehensive metabolic 2000 panelon 09-29-2024 Albumin [Mass/Vol] 4.0 g/dL Normal 3.9-4.9 [facility] Comment on above: Order Comment: Speci men Type: BLOOD SPECIMENOrdering Facility: [facility] Address: [address] [place] [address] Performed By: #### 1 988-5, 83970-0 ####[facility] [id number] [place] [address] [place] ALP [Catalytic activity/Vol] 58 U/L Normal 34-123 [facility] Comment on above: Order Comment: Speci men Type: BLOOD SPECIMENOrdering Facility: [facility] Address: [address] [place] [address] Performed By: #### 1 988-5, 16690-8 ####[facility]ITALIA [id number] [place] [address] [place] ALT [Catalytic activity/Vol] 20 U/L Normal 7-38 [facility] Comment on above: Order Comment: Speci men Type: BLOOD SPECIMENOrdering Facility: [facility] Address: [address] [place] [address] Performed By: #### 1 988-5, 85433-3 ####[facility] [id number] [place] [address] [place] Anion gap [Moles/Vol] 12 mmol/L Normal 8-15 [facility] Comment on above: Order Comment: Speci men Type: BLOOD SPECIMENOrdering Facility: [facility] Address: [address] [place] [address] Performed By: #### 1 988-5, ####[facility]ORATORYCLIA [id number] [place] [address] [place] AST [Catalytic activity/Vol] 13 U/L Normal 13-35 [facility] Comment on above: Order Comment: Speci men Type: BLOOD SPECIMENOrdering Facility: [facility] Address: [address] [place] [address] Performed By: #### 1 988-5, ####[facility] LABORATORYCLIA [id number] [place] [address] [place] Bilirubin [Mass/Vol] mg/dL Low 0.2-1.3 [facility] Comment on above: Order Comment: Speci men Type: BLOOD SPECIMENOrdering Facility: [facility] Address: [address] [place] [address] Performed By: #### 1 988-5, ####[facility] [id number] [place] [address] [place] Calcium [Mass/Vol] 9.3 mg/dL Normal 8.5-10.2 [facility] Comment on above: Order Comment: Speci men Type: BLOOD SPECIMENOrdering Facility: [facility] Address: [address] [place] [address] Performed By: #### 1 988-5, ####[facility]ORATORYIA [id number] [place] [address] [place] Chloride [Moles/Vol] 104 mmol/L Normal 98-107 [facility] Comment on above: Order Comment: Speci men Type: BLOOD SPECIMENOrdering Facility: [facility] Address: [address] [place] [address] Performed By: #### 1 988-5, 34610-7 ####[facility]OR[facility]ORYIA [id number] [place] [address] [place] CO2 [Moles/Vol] 23 mmol/L Normal 22-30 [facility] Comment on above: Order Comment: Speci men Type: BLOOD SPECIMENOrdering Facility: [facility] Address: [address] [id number] Performed By: #### 1 988-5, 31160-6 ####[facility] [id number] [place] [address] [place] Creatinine [Mass/Vol] 0.92 mg/dL Normal 0.58-0.96 [facility] Comment on above: Order Comment: Ayaka men Type: BLOOD SPECIMENOrdering Facility: [facility] Address: [address] [place], [place] [address] Performed By: #### 1 988-5, 89347-6 ####[facility] LABORATORYIA [id number] [place] [address] [place] Creatinine and Glomerular filtration rate.predicted panel (S/P/Bld) 79 mL/min/1.73m??? Normal >=60 [facility] Comment on above: Order Comment: Ayaka [facility] Type: BLOOD SPECIMENOrdering Facility: [facility] Address: [address] [place] [address] Result Comment: Michelle mated Glomerular Filtration Rate (eGFR) is calculated using the 2020 CKD-EPI creatinine equation. This equation utilizes serum creatinine, sex, and age as parameters. The creatinine assay has traceable calibration to isotope dilution-mass spectrometry. Refer to KDIGO guidelines for clinical interpretation. In patients with unstable renal function, e.g. those with acute kidney injury, the eGFR may not accurately reflect actual GFR. Performed By: #### 1 988-5, 69340-8 ####[facility] LABORATORYIA [id number] [place] [address] [place] Glucose [Mass/Vol] 135 mg/dL High 74-99 [facility] Comment on above: Order Comment: Marjoriei [facility] Type: BLOOD SPECIMENOrdering Facility: [facility] Address: [address] [place] [address] Result Comment: The [place] Diabetes Association (ADA) provides guidance for cutoff values for fasting glucose and random glucose. The ADA defines fasting as no caloric intake for at least 8 hours. Fasting plasma glucose results between 100 to 125 mg/dL indicate increased risk for diabetes (prediabetes). Fasting plasma glucose results greater than or equal to 126 mg/dL meet the criteria for diagnosis of diabetes. In the absence of unequivocal hyperglycemia, results should be confirmed by repeat testing. In a patient with classic symptoms of hyperglycemia or hyperglycemic crisis, random plasma glucose results greater than or equal to 200 mg/dL meet the criteria for diagnosis of diabetes. Reference: Standards of Medical Care in Diabetes 2016, [place] Diabetes Association. Diabetes Care. 2016.39(Suppl 1). Performed By: #### 1 988-5, 69961-6 ####[facility] [id number] [place] [address] [place] Potassium [Moles/Vol] 3.4 mmol/L Low 3.7-5.1 [facility] Comment on above: Order Comment: Marjoriei bud Type: BLOOD SPECIMENOrdering Facility: [facility] Address: [address] [place] [address] Performed By: #### 1 988-5, 59414-9 ####[facility] [id number] [place] [address] [place] Protein [Mass/Vol] 6.5 g/dL Normal 6.3-8.0 [facility] Comment on above: Order Comment: Marjoriei men Type: BLOOD SPECIMENOrdering Facility: [facility] Address: [address] [place] [address] Performed By: #### 1 988-5, 18730-7 ####[facility] [id number] [place] [address] [place] Sodium [Moles/Vol] 139 mmol/L Normal 136-144 [facility] Comment on above: Order Comment: Speci men Type: BLOOD SPECIMENOrdering Facility: [facility] Address: [address] [place] [address] Performed By: #### 1 988-5, 84204-4 ####[facility] [id number] [place] [address] [place] Urea nitrogen [Mass/Vol] 16 mg/dL Normal 7-21 [facility] Comment on above: Order Comment: Speci men Type: BLOOD SPECIMENOrdering Facility: [facility] Address: [address], [place] [address] Performed By: #### 1 988-5, 33454-1 ####[facility] LABORATORYCLIA [id number] [facility] [place] [address] [facility] ED PROV NOTEon 09-29-2024 ED PROV NOTE HNO ID: [id number] Author: ALESHA VALE MD Service: Emergency Medicine Author Type: Physician Type: ED Provider Notes Filed: 09/29/2024 04:21 Note Text: ED Provider Note Patient Name: Angela Elam : 1980 SERVICE DATE: 09/29/24 History Patient presents with: Rectal Bleeding: X 3 days. Pt states hx of ulcerative colitis. Was instructed by dr to come to ED for further eval. 44-year-old female presents emergency department with BRBPR x 3 days. Describes a generalized abdominal cramping. Multiple watery bloody stools over the last 3 days. She does admit to taking NSAIDs approximately 3 days ago due to a headache. Has been taking 800 mg of ibuprofen. Yesterday started prednisone 20 mg for her flare. PMH-C. difficile approximate 1.5 years ago, UC, IBS, Crohn's. Denies any fever. Does endorse some shortness of breath starting yesterday and dizziness times months. No chest pain. No urinary complaints. History provided by: Medical records and patient magnetic tester used: No PAST MEDICAL HISTORY Diagnosis Date ADHD (attention deficit hyperactivity disorder) Anemia Anxiety Blood disorder 12/2021 Crohn's disease (HCC) Depression Hypoproteinemia (HCC) Irritable bowel disease Keratoderma Migraine Ulcerative colitis (HCC) PAST SURGICAL HISTORY Procedure Laterality Date COLONSCOPY SCREENING HIGH RISK LEEP PROCEDURE (W NOTE) LIGATE FALLOPIAN TUBE FAMILY HISTORY Problem Relation Age of Onset Asthma Mother Hyperlipidemia Father other (Alchohol use) Father Heart disease Father Arthritis Father Mental illness Sister Mental illness Sister Asthma Maternal Grandmother Depression Maternal Grandmother Mental illness Maternal Grandmother other (other) Maternal Grandfather Hyperlipidemia Maternal Grandfather Alcohol abuse Paternal Grandmother Heart disease Paternal Grandfather Arthritis Paternal Grandfather Heart Attack Paternal Grandfather Social History Tobacco Use Smoking status: Former Current packs/day: 0.00 Types: Cigarettes Quit date: 12/01/2022 Years since quittin.8 Passive exposure: Past Smokeless tobacco: Never Vaping Use Vaping status: current everyday user Substances: Nicotine Devices: Disposable, Pre-filled or refillable cartridge Substance and Sexual Activity Alcohol use: Yes Drug use: Not Currently Sexual activity: Not on file ALLERGIES No Known Allergies Review of Systems Constitutional: Negative for chills and fever. Respiratory: Positive for shortness of breath. Negative for chest tightness. Cardiovascular: Negative for chest pain. Gastrointestinal: Positive for blood in stool and diarrhea. Negative for abdominal pain, nausea and vomiting. Genitourinary: Negative for difficulty urinating, dysuria and urgency. Neurological: Negative for dizziness. Physical Exam Vitals [09/29/24 0207] BP Pulse Temp Temp src Resp SpO2 Weight Height 141/83 (!) 107 36.7 ?C (98.1 ?F) Temporal Art 20 98 % 94.3 kg (208 lb) 1.676 m (5' 6 ) Physical Exam Constitutional: General: She is not in acute distress. Appearance: Normal appearance. She is not ill-appearing, toxic-appearing or diaphoretic. Cardiovascular: Rate and Rhythm: Regular rhythm. Tachycardia present. Pulses: Normal pulses. Heart sounds: Normal heart sounds. Pulmonary: Effort: Pulmonary effort is normal. Breath sounds: Normal breath sounds. Abdominal: General: Bowel sounds are normal. Tenderness: There is abdominal tenderness. Skin: General: Skin is warm and dry. Capillary Refill: Capillary refill takes less than 2 seconds. Neurological: Mental Status: She is alert and oriented to person, place, and time. Diagnostic Testing ED Labs Ordered and Reviewed COMPLETE BLOOD COUNT AND DIFFERENTIAL - Abnormal; Notable for the following components: Result Value Ref Range WBC 12.11 (*) 3.70 - 11.00 k/uL Hemoglobin 8.3 (*) 11.5 - 15.5 g/dL Hematocrit 30.1 (*) 36.0 - 46.0 % MCV 73.2 (*) 80.0 - 100.0 fL MCH 20.2 (*) 26.0 - 34.0 pg MCHC 27.6 (*) 30.5 - 36.0 g/dL RDW-CV 22.0 (*) 11.5 - 15.0 % Platelet Count 429 (*) 150 - 400 k/uL MPV 8.1 (*) 9.0 - 12.7 fL Abs Neut 8.11 (*) 1.45 - 7.50 k/uL All other components within normal limits COMPREHENSIVE METABOLIC PANEL - Abnormal; Notable for the following components: Bilirubin, Total <0.2 (*) 0.2 - 1.3 mg/dL Glucose 135 (*) 74 - 99 mg/dL Potassium 3.4 (*) 3.7 - 5.1 mmol/L All other components within normal limits C-REACTIVE PROTEIN - Normal SEPSIS LACTATE W/ REFLEX (INITIAL) - Normal C. DIFFICILE PCR CALPROTECTIN,FECAL ENTERIC BACTERIAL PANEL BY PCR Procedures ED Course / Clinical Impression ED Course as of 09/29/24 0421 Alesha Vale's Documentation FriSep 29, 2024 0354 Patient is a 44-year-old female with history of ulcerative colitis who presents emergency department with increased episodes of blood in her stool she endorses br (more content not included)... Normal [facility] ESR Westergren method (Bld) [Velocity]on 09-29-2024 ESR (Bld) [Velocity] 13 mm/h Normal 0-20 [facility] Comment on above: Order Comment: Speci men Type: BLOOD SPECIMENOrdering Facility: [facility] Address: [address] [place] [address] Performed By: #### 4 537-7 ####[facility] LABCLIA [id number] [place] [address] [place] Gastrointestinal pathogens i dentified ART+probe Nom (Stl)on 09-29-2024 Campylobacter sp DNA ART+probe Nom (Unsp spec) Not detected Normal Not Detected [facility] Comment on above: Order Comment: Speci men Type: STOOL SPECIMENOrdering Facility: [facility] Address: [address] [place] [address] Performed By: #### 5 4067-4, 45295-9, 52770-1 ####[facility] LABCLIA [id number] [address] [place] Salmonella sp DNA ART+probe Ql (Unsp spec) Not detected Normal Not Detected [facility] Comment on above: Order Comment: Speci men Type: STOOL SPECIMENOrdering Facility: [facility] Address: [address] [place] [address] Performed By: #### 5 4067-4, 49045-9, 28172-6 ####[facility] LABIA [id number] [address] Shiga toxin stx gene ART+probe Nom (Unsp spec) Not detected Normal Not Detected [facility] Comment on above: Order Comment: Speci men Type: STOOL SPECIMENOrdering Facility: [facility] Address: [address] [place] [address] Performed By: #### 5 4067-4, 00643-4, 37115-1 ####[facility] [id number] [address] Shigella sp DNA ART+probe Ql (Unsp spec) Not detected Normal Not Detected [facility] Comment on above: Order Comment: Speci men Type: STOOL SPECIMENOrdering Facility: [facility] Address: [address] [place] [address] Performed By: #### 5 4067-4, 88434-9, 01869-2 ####[facility] [id number] [address] [place] HISTORY PHYSICALon HISTORY PHYSICAL HNO ID: [id number] Author: JOSE ARMANDO STERLING MD Service: Hospital Medicine Author Type: Physician Type: H&P Filed: 09/29/2024 05:34 Note Text: DEPARTMENT OF HOSPITAL MEDICINE HISTORY AND PHYSICAL EXAM SERVICE DATE: 09/29/2024 SERVICE TIME: 4:13 AM Primary Care Physician: Beck Tee DO, NIGHT AND WEEKEND COVERAGE: RONIT COVERAGE: Days: , please contact via [employer] Nights: floor: please page CC Hospitalist night cover [phone] - 4W: please page Hospitalist night cover #[phone] - 5th floor: please page Hospitalist night cover #[phone] - SDU (17:00 - 19:00): Please page #[phone] - SDU (19:00 - 07:00): Please call [facility] at [phone] Subjective CHIEF COMPLAINT: Bright red bleeding per rectum of 3 days duration HPI: This is a 44 year old female patient, PMHx ulcerative colitis, previous C difficile infection, IBS, TIO, ADHD, anxiety/depression, and migraine. She presents with bright red bleeding per rectum of 3 days duration. Patient's history dates back to Friday, which is 3 days ago, when she started to c/o bright red bleeding per rectum. She noticed that the blood sometimes mixed with the stool and sometimes it is just blood, she also noticed passing blood clots with the stool. Since the onset she has been having these bleeding episodes 10 times per day. It has been associated with abdominal pain in the middle of her abdomen of cramping quality. It's also been associated with feeling of hotness, dizziness, and feeling like she would pass out. She otherwise denies nausea and vomiting. She noticed SOB intermittently and randomly. She denies cough and chest pain otherwise. She then contacted the office of her GI doctor who then recommended that she comes to the ED for further evaluation. It is important to mention that the patient has been receiving prednisone 20 mg p.o. once daily at home. Also, Skyrizi was supposed to be commenced this upcoming Friday per her GI doctor orders. It is noteworthy that the patient was taking ibuprofen 800 mg once every morning for migraine headache from Friday till Friday just before she stopped taking it and just before the onset of her symptoms. The patient denies alcohol intake for the past 18 months since she is aware it can cause her ulcerative colitis to flare up. She admits to vaping nicotine products. She otherwise denies illicit substance use. ED Course: BP 141/83, HR 107 (then dropped to 80), temperature 36.7 C, and O2 Sat 98% on RA CRP 0.6 WNL Lactate 1.6 WNL CBC remarkable for WBCs 12.11 with absolute neutrophilia, Hb 8.3 (baseline appears to be 10), MCV 73.2, and platelet count 429 CMP only remarkable for potassium 3.4 Methylprednisolone 60 mg IV, morphine 4 mg IV, and ondansetron 4 mg IV were given. The patient was then admitted to regular nursing floor for further evaluation and management. PAST MEDICAL HISTORY Diagnosis Date ADHD (attention deficit hyperactivity disorder) Anemia Anxiety Blood disorder 12/2021 Crohn's disease (HCC) Depression Hypoproteinemia (HCC) Irritable bowel disease Keratoderma Migraine Ulcerative colitis (HCC) PAST SURGICAL HISTORY Procedure Laterality Date COLONSCOPY SCREENING HIGH RISK LEEP PROCEDURE (W NOTE) LIGATE FALLOPIAN TUBE FAMILY HISTORY Problem Relation Age of Onset Asthma Mother Hyperlipidemia Father other (Alchohol use) Father Heart disease Father Arthritis Father Mental illness Sister Mental illness Sister Asthma Maternal Grandmother Depression Maternal Grandmother Mental illness Maternal Grandmother other (other) Maternal Grandfather Hyperlipidemia Maternal Grandfather Alcohol abuse Paternal Grandmother Heart disease Paternal Grandfather Arthritis Paternal Grandfather Heart Attack Paternal Grandfather Social History Tobacco Use Smoking status: Former Current packs/day: 0.00 Types: Cigarettes Quit date: 12/01/2022 Years since quittin.8 Passive exposure: Past Smokeless tobacco: Never Vaping Use Vaping status: current everyday user Substances: Nicotine Devices: Disposable, Pre-filled or refillable cartridge Substance Use Topics Alcohol use: Yes Drug use: Not Currently PRIOR TO ADMISSION MEDICATIONS: (Not in a hospital admission) ALLERGIES No Known Allergies REVIEW OF SYSTEM: PAIN ASSESSMENT: CURRENTLY HAVING PAIN; see HPI GENERAL: Fatigue RESPIRATORY: intermittent SOB concurrent with this presentation CARDIOVASCULAR: Negative for chest pain, leg swelling, CHF or palpitations GI: See HPI : No history of dysuria, frequency or incontinence, no vaginal bleeding MUSCULOSKELETAL: chronic myalgia NEURO: history of migraine, no focal weakness, intermittent right hand numbness Objective PHYSICAL EXAM: BP 105/68 Pulse 80 Temp (Src) 98.1 (Temporal Artery) Resp 14 Ht 5' 6 (1.68m) Wt 208 lb (94.3kg) SpO2 97% LMP 09/13/2024 BMI 33.59 kg/(m (more content not included)... Normal [facility] Magnesium SerPl-mCncon 09-29 Magnesium [Mass/Vol] 2.1 mg/dL Normal 1.7-2.3 [facility] Comment on above: Order Comment: Speci men Type: BLOOD SPECIMENOrdering Facility: [facility] Address: [address] [place], [place] [address] Performed By: #### 2 4321-2, 25437-2 ####[facility] [id number] [place] [address] [facility] NURSING PROGon 09-29-2024 NURSING PROG HNO ID: [id number] Author: DEANA WILSON, RN Service: Nursing Author Type: Registered Nurse Type: Nursing Progress Note Filed: 09/29/2024 23:09 Note Text: Other: received into room 521 from ED at 1913. Up to BR with steady gait. Voiding without difficulty. Normal [facility] SEPSIS LACTATE W/ REFLEX (IN ITIAL)on 09-29-2024 Lactate [Moles/Vol] 1.6 mmol/L Normal 0.0-2.0 [facility] Comment on above: Order Comment: Speci men Type: BLOOD SPECIMENOrdering Facility: [facility] Address: [address] [place], [place] [address] Performed By: #### S LACTR ####[facility] LABORATORYIA [id number] [place] [address] [facility] XR ABD 2V SUPINE W UPR/DECUB /CTLon 09-29-2024 XR ABD 2V SUPINE W UPR/DECUB/CTL * * *Final Report* * * DATE OF EXAM: Sep 29 2024 4:15PM VHX [id number] - XR ABD 2V SUPINE W UPR/DECUB/CTL / PROCEDURE REASON: Abdominal pain, acute * * * * Physician Interpretation * * * * XR ABD 2V SUPINE W UPR/DECUB/CTL PROVIDED HISTORY: Abdominal pain, acute COMPARISON: 04/04/2023 TECHNIQUE: Supine and upright RESULT: Large amount of stool in the colon. No small bowel obstruction or free air is seen. No renal stones are visualized. Tubal ligation clips are noted. IMPRESSION: Possible constipation. Self Pay Specialist: REINALDO Transcribe Date/Time: Sep 30 2024 7:15A Dictated by : BRANDAN FLOR MD This examination was interpreted and the report reviewed and electronically signed by: BRANDAN FLOR MD on Sep 30 2024 7:15AM EST [id number] [facility] CNPKrystal 09-27-2024 [facility] Telephone (NAEJAYDA) ANGELA ELAM ([id number]) 1980 F Date Time Provider Department 09/27/24 MAK MARTINEZ During your visit today, we recorded the following information about you: Melanie Lechuga RN 09/27/2024 9:34 AM Signed Yuli James RPh 09/06/24 6:08 PM [facility] received prescription(s) for Skyrizi from Dr. Martinez's office. Benefits investigation was conducted, indicating that a prior authorization is required by patient's insurance plan with [employer]. Encounter will be updated once prior authorization has been submitted by [facility]. Pt has not yet received infusion doses. Yuli James, HaydenD Clinical Pharmacist, [employer] [facility] ; Pool: P [facility] Pool #: [id number] Colton Roldan, I just wanted to let you know that the patient will be getting her infusions on 10/01, 10/29, and 11/26. Will be due to start injections (OBI) on 11/24. Thanks! AUSTIN Whaley Chelsea A, RN 09/27/2024 11:29 AM Signed Yuli James RPh You; [facility] 21 hour ago (9:49 AM) Thanks for letting us know Melanie! We will make sure we submit PA before her third infusion dose. Thanks! Melanie Pickard RN 11/25/2024 12:45 PM Signed In the [facility] encounter dated 09/06/24, it states that a PA for Skyrizi OBI was done on 11/01/24: Ursula Zamorano 11/01/24 8:28 AM Daniel CORREA PA was initiated and pending review. Plan Name: Tevin Goldman Garcia: [id number] Ursula Zamorano [facility] [phone] I looked in CMM and found that this PA was denied for the following: Coverage is provided when the member meets ALL the following requirements: 1. Must provide evidence of a negative TB test within the last 12 months (test used to detect TB bacteria in the body) prior to initiation of biologic therapy, if required by labeling. Tuberculosis (TB) is a potentially serious infectious disease that mainly affects the lungs. 2. Must have had an inadequate clinical response (symptoms/conditions did not improve) of at least 90 days with TWO different first-line drugs indicated for diagnosis and as appropriate for severity of disease. Please provide medication names/strengths and trial dates (MM/DD/YYYY) and duration to support patient use and why the preferred medications will not work or may cause harm. Please explain how the member was receiving medication (samples are not accepted as trials). ... There are some routing comments that I can't see, but patient had a TB test done on 11/04/24, so I imagine that was the main problem. TB test was negative. I do not see that the PA was resubmitted. Can someone from the Specialty Pharmacy please review and advise? Thanks! Melanie Lechuga RN Allergies As of Date: 09/27/2024 (No Known Allergies) Date Reviewed: 09/17/2024 Reviewed by: Dilma Montes PA-C - Fully Assessed Reason for Visit: Patient Update [1234] Insurance Authorization [[id number]] Prescriptions as of 12/06/2024 - risankizumab-rzaa (SKYRIZI) 360 mg/2.4 mL (150 mg/mL) wearable injector Inject 360 mg subcutaneously every 8 weeks. First dose at week 12, then every 8 weeks after that. - clonazePAM (KLONOPIN) 0.5 mg tablet Take 0.5 mg by mouth two times a day as needed for anxiety. Problem List As Of Date 09/27/2024 Noted Resolved Iron deficiency anemia due to chronic blood los*12/25/2021 Ulcerative pancolitis without complication (HCC*03/31/2023 Anxiety [F41.9] 05/19/2020 Vapes nicotine containing substance [Z72.0] 03/31/2023 Migraines [G43.909] 03/31/2023 Chronic neck pain [M54.2, G89.29] 03/31/2023 C. difficile colitis [A04.72] 03/31/2023 Nicotine use disorder, F17.2 [F17.200] 03/31/2023 Clostridium difficile colitis [A04.72] 04/01/2023 Encounter Status:Closed by MELANIE LECHUGA on 09/27/24 [facility] 09-21-2024 CNPN Telephone ([place]) ANGELA ELAM ([id number]) 1980 F Date Time Provider Department 09/21/24 DERIC INMAN During your visit today, we recorded the following information about you: Deric Inman RN 09/21/2024 11:04 AM Signed ----- Message from Dilma Montes PA-C sent at 09/21/2024 10:58 AM EDT ----- Please call and inform the patient that her anemia work up just confirmed iron deficiency. No other causes for anemia. Proceed with IV iron as planned and see me back as scheduled. Deric Inman RN 09/21/2024 11:05 AM Signed VM left for pt with MM message below. Encouraged to call with any questions, needs or concerns. Follow up appointment dates and times provided. Deric Inman RN Allergies As of Date: 09/21/2024 (No Known Allergies) Date Reviewed: 09/17/2024 Reviewed by: Dilma Montes PA-C - Fully Assessed Reason for Visit: Results [95] Prescriptions as of 09/21/2024 - desvenlafaxine ER (PRISTIQ) 50 mg 24 hr tablet Take 50 mg by mouth once daily. - predniSONE (DELTASONE) 10 mg tablet Take 2 tablets by mouth once daily. - risankizumab-rzaa (SKYRIZI) 360 mg/2.4 mL (150 mg/mL) wearable injector Inject 360 mg subcutaneously every 8 weeks. First dose at week 12, then every 8 weeks after that. - clonazePAM (KLONOPIN) 0.5 mg tablet Take 0.5 mg by mouth twice daily as needed. Problem List As Of Date 09/21/2024 Noted Resolved Iron deficiency anemia due to chronic blood los*12/25/2021 Ulcerative pancolitis without complication (HCC*03/31/2023 Anxiety [F41.9] 05/19/2020 Vapes nicotine containing substance [Z72.0] 03/31/2023 Migraines [G43.909] 03/31/2023 Chronic neck pain [M54.2, G89.29] 03/31/2023 C. difficile colitis [A04.72] 03/31/2023 Nicotine use disorder, F17.2 [F17.200] 03/31/2023 Clostridium difficile colitis [A04.72] 04/01/2023 Encounter Status:Closed by DERIC INMAN on 09/21/24 Normal [facility] CBC W Auto Differential pane l (Bld)on 09-17-2024 Basophils (Bld) [#/Vol] 0.03 10*3/uL [facility] Basophils/100 WBC (Bld) 0.3 % [facility] Differential cell count method Nom (Bld) Auto [facility] Eosinophils (Bld) [#/Vol] [facility] Eosinophils/100 WBC (Bld) 0.1 % [facility] Erythrocyte distribution width (RBC) [Ratio] 19.0 % High 11.5 - 15.0 % [facility] Hematocrit (Bld) [Volume fraction] 32.2 % Low 36.0 - 46.0 % [facility] Hemoglobin (Bld) [Mass/Vol] 8.7 g/dL Low 11.5 - 15.5 g/dL [facility] Immature granulocytes (Bld) [#/Vol] 0.06 10*3/uL NINF [facility] Immature granulocytes/100 WBC (Bld) 0.5 % [facility] Interpretation and review of laboratory results Abnormal [facility] Lymphocytes (Bld) [#/Vol] 0.76 10*3/uL Low [facility] Lymphocytes/100 WBC (Bld) 6.9 % [facility] MCH (RBC) [Entitic mass] 19.1 pg Low 26.0 - 34.0 pg [facility] MCHC (RBC) [Mass/Vol] 27.0 g/dL Low 30.5 - 36.0 g/dL [facility] MCV (RBC) [Entitic vol] 70.6 fL Low 80.0 - 100.0 fL [facility] Monocytes (Bld) [#/Vol] 0.14 10*3/uL [facility] Monocytes/100 WBC (Bld) 1.3 % [facility] Neutrophils (Bld) [#/Vol] 9.95 10*3/uL High [facility] Neutrophils/100 WBC (Bld) 90.9 % [facility] Nucleated RBC (Bld) [#/Vol] [facility] Nucleated RBC/100 WBC (Bld) [Ratio] 0.0 % /100 WBC [facility] Platelet mean volume (Bld) [Entitic vol] 8.3 fL Low 9.0 - 12.7 fL [facility] Platelets (Bld) [#/Vol] 526 10*3/uL High [facility] RBC (Bld) [#/Vol] 4.56 10*6/uL 3.90 - 5.2 0 m/uL [facility] WBC (Bld) [#/Vol] 10.95 10*3/uL [facility] Basophils (Bld) [#/Vol] 0.03 10*3/uL Normal <0.11 [facility] Comment on above: Order Comment: Speci men Type: BLOOD SPECIMENOrdering Facility: [facility] Address: [address] [place] [address] Performed By: #### 5 7021-8, 53929-5 ####[facility] LABCLIA [id number] [place] [address] Basophils/100 WBC (Bld) 0.3 % Normal [facility] Comment on above: Order Comment: Speci men Type: BLOOD SPECIMENOrdering Facility: [facility] Address: [address] [place] [address] Performed By: #### 5 7021-8, 40280-4 ####[facility] LABCLIA [id number] [place] [address] Differential cell count method Nom (Bld) Auto Normal [facility] Comment on above: Order Comment: Speci men Type: BLOOD SPECIMENOrdering Facility: [facility] Address: [address] [place] [address] Performed By: #### 5 7021-8, 38341-6 ####[facility] LABCLIA [id number] [place] [address] Eosinophils (Bld) [#/Vol] 10*3/uL Normal <0.46 [facility] Comment on above: Order Comment: Speci men Type: BLOOD SPECIMENOrdering Facility: [facility] Address: [address] [place] [address] Performed By: #### 5 7021-8, 84610-3 ####[facility] LABIA [id number] [place] [address] Eosinophils/100 WBC (Bld) 0.1 % Normal [facility] Comment on above: Order Comment: Speci men Type: BLOOD SPECIMENOrdering Facility: [facility] Address: [address] [place] [address] Performed By: #### 5 7021-8, 40153-2 ####[facility] LABCLIA [id number] [place] [address] Erythrocyte distribution width (RBC) [Ratio] 19.0 % High 11.5-15.0 [facility] Comment on above: Order Comment: Speci men Type: BLOOD SPECIMENOrdering Facility: [facility] Address: [address] [place] [address] Performed By: #### 5 7021-8, 65060-8 ####[facility] LABCLIA [id number] [place] [address] Hematocrit (Bld) [Volume fraction] 32.2 % Low 36.0-46.0 [facility] Comment on above: Order Comment: Speci men Type: BLOOD SPECIMENOrdering Facility: [facility] Address: [address] [place] [address] Performed By: #### 5 7021-8, 52107-8 ####[facility] LABCLIA [id number] [place] [address] Hemoglobin (Bld) [Mass/Vol] 8.7 g/dL Low 11.5-15.5 [facility] Comment on above: Order Comment: Speci men Type: BLOOD SPECIMENOrdering Facility: [facility] Address: [address] [place] [address] Performed By: #### 5 7021-8, 50383-8 ####[facility] LABCLIA [id number] [place] [address] Immature granulocytes (Bld) [#/Vol] 0.06 10*3/uL Normal <0.10 [facility] Comment on above: Order Comment: Speci men Type: BLOOD SPECIMENOrdering Facility: [facility] Address: [address] [place] [address] Performed By: #### 5 7021-8, 94243-4 ####[facility] LABCLIA [id number] [place] [address] Immature granulocytes/100 WBC (Bld) 0.5 % Normal [facility] Comment on above: Order Comment: Speci men Type: BLOOD SPECIMENOrdering Facility: [facility] Address: [address] [place] [address] Performed By: #### 5 7021-8, 43066-7 ####[facility] LABCLIA [id number] [place] [address] Lymphocytes (Bld) [#/Vol] 0.76 10*3/uL Low 1.00-4.00 [facility] Comment on above: Order Comment: Speci men Type: BLOOD SPECIMENOrdering Facility: [facility] Address: [address] [place] [address] Performed By: #### 5 7021-8, 56017-7 ####[facility] LABCLIA [id number] [place] [address] Lymphocytes/100 WBC (Bld) 6.9 % Normal [facility] Comment on above: Order Comment: Speci men Type: BLOOD SPECIMENOrdering Facility: [facility] Address: [address] [place] [address] Performed By: #### 5 7021-8, 78420-5 ####[facility] LABCLIA [id number] [place] [address] MCH (RBC) [Entitic mass] 19.1 pg Low 26.0-34.0 [facility] Comment on above: Order Comment: Speci men Type: BLOOD SPECIMENOrdering Facility: [facility] Address: [address] [place] [address] Performed By: #### 5 7021-8, 75848-6 ####[facility] LABCLIA [id number] [place] [address] MCHC (RBC) [Mass/Vol] 27.0 g/dL Low 30.5-36.0 [facility] Comment on above: Order Comment: Speci men Type: BLOOD SPECIMENOrdering Facility: [facility] Address: [address] [place] [address] Performed By: #### 5 7021-8, 90851-7 ####[facility] LABCLIA [id number] [place] [address] MCV (RBC) [Entitic vol] 70.6 fL Low 80.0-100.0 [facility] Comment on above: Order Comment: Speci men Type: BLOOD SPECIMENOrdering Facility: [facility] Address: [address] [place] [address] Performed By: #### 5 7021-8, 17214-2 ####[facility] LABCLIA [id number] [place] [address] Monocytes (Bld) [#/Vol] 0.14 10*3/uL Normal <0.87 [facility] Comment on above: Order Comment: Speci men Type: BLOOD SPECIMENOrdering Facility: [facility] Address: [address] [place] [address] Performed By: #### 5 7021-8, 29657-4 ####[facility] LABCLIA [id number] [place] [address] Monocytes/100 WBC (Bld) 1.3 % Normal [facility] Comment on above: Order Comment: Speci men Type: BLOOD SPECIMENOrdering Facility: [facility] Address: [address] [place] [address] Performed By: #### 5 7021-8, 46529-9 ####[facility] LABCLIA [id number] [place] [address] Neutrophils (Bld) [#/Vol] 9.95 10*3/uL High 1.45-7.50 [facility] Comment on above: Order Comment: Speci men Type: BLOOD SPECIMENOrdering Facility: [facility] Address: [address] [place] [address] Performed By: #### 5 7021-8, 35382-0 ####[facility] LABCLIA [id number] [place] [address] Neutrophils/100 WBC (Bld) 90.9 % Normal [facility] Comment on above: Order Comment: Speci men Type: BLOOD SPECIMENOrdering Facility: [facility] Address: [address] [place] [address] Performed By: #### 5 7021-8, 07484-3 ####[facility] LABCLIA [id number] [place] [address] Nucleated RBC (Bld) [#/Vol] 10*3/uL Normal <0.01 [facility] Comment on above: Order Comment: Speci men Type: BLOOD SPECIMENOrdering Facility: [facility] Address: [address] [place] [address] Performed By: #### 5 7021-8, 28612-6 ####[facility] LABCLIA [id number] [place] [address] Nucleated RBC/100 WBC (Bld) [Ratio] 0.0 /100 WBC Normal [facility] Comment on above: Order Comment: Speci men Type: BLOOD SPECIMENOrdering Facility: [facility] Address: [address] [place] [address] Performed By: #### 5 7021-8, 73537-7 ####[facility] LABIA [id number] [place] [address] Platelet mean volume (Bld) [Entitic vol] 8.3 fL Low 9.0-12.7 [facility] Comment on above: Order Comment: Speci men Type: BLOOD SPECIMENOrdering Facility: [facility] Address: [address] [place] [address] Performed By: #### 5 7021-8, 75898-6 ####[facility] LABIA [id number] [place] [address] Platelets (Bld) [#/Vol] 526 10*3/uL High 150-400 [facility] Comment on above: Order Comment: Speci men Type: BLOOD SPECIMENOrdering Facility: [facility] Address: [address] [place] [address] Performed By: #### 5 7021-8, 02108-7 ####[facility] LABIA [id number] [place] [address] RBC (Bld) [#/Vol] 4.56 10*6/uL Normal 3.90-5.20 [facility] Comment on above: Order Comment: Speci men Type: BLOOD SPECIMENOrdering Facility: [facility] Address: [address] [place] [address] Performed By: #### 5 7021-8, 42721-2 ####[facility] LABCLIA [id number] [place] [address] WBC (Bld) [#/Vol] 10.95 10*3/uL Normal 3.70-11.00 [facility] Comment on above: Order Comment: Speci men Type: BLOOD SPECIMENOrdering Facility: [facility] Address: [address] [place] [address] Performed By: #### 5 7021-8, 12063-2 ####[facility] LABCLIA [id number] [place] [address] CNOVSPon 09-17-2024 CNOVSP Visit (SP) Office ([place]) ANGELA ELAM ([id number]) 1980 F Date Time Provider Department 09/17/24 2:30 PM DILMA MONTES During your visit today, we recorded the following information about you: Temperature Pulse Respiration Blood pressure 97.7 degrees 114/minute 16/minute 131/88 Weight Height Last Period 94.4 kg 1.676 m 03/02/23 Dilma Montes PA-C 09/17/2024 3:49 PM Signed [facility] CLINICAL CONSULTATION NOTE Hematologic Oncology and Blood Disorders PATIENT NAME: Angela Elam DATE OF SERVICE: September 17, 2024 The patient is referred by Beck Tee Jr. for further evaluation of iron deficiency anemia due to chronic blood loss. CHIEF COMPLAINT: Iron deficiency anemia due to chronic blood loss HISTORY OF THE PRESENT ILLNESS: Patient is a 44 year old woman presenting here to establish care. Patient's iron deficiency anemia was previously being treated by her GI doctor but has transferred her care to us. Her history of iron deficiency anemia due to chronic blood loss is attributed to the patient's ulcerative pancolitis. Patient was first diagnosed 7 years ago after having severe bloody diarrhea. Patient has been on many medications and none have helped. Patient reports that her diarrhea is worse in the morning with an average of 10 bowel movements per day, sometimes waking her up at night. Patient reports that she has not noticed blood in her stool since her last flare up which was a year and a half ago, and reports her flare ups involve severe bloody diarrhea. Patient reports she does not often have abdominal pain during the day. Patient also experiences chronic fatigue, ice chewing, dizziness and lightheadedness, thinning hair and chills. Symptoms: Fatigue: Yes Pica: Yes; in the past year SOB: No Chest Pain/Palpitations: No Lightheadedness: Yes Dizziness: Yes Headache: No Brittle hair/nails: Other; thinning hair Restless Legs: No Bleeding: Other; blood in stool Chills: Yes Difficulty concentrating/brain fog: No History of anemia: Yes Oral Iron History: Yes; does not tolerate well, causes increased diarrhea and abdominal pain. History Blood Transfusions/Intraveno us Iron infusions: Yes; GI doctor Dr. Martinez at [facility] ordered last time in 2021 and received infusion here. Family History of Anemia/Blood Disorders: No Alcohol Use: No PAST MEDICAL HISTORY: PAST MEDICAL HISTORY Diagnosis Date ADHD (attention deficit hyperactivity disorder) Anemia Anxiety Blood disorder 12/2021 Crohn's disease (HCC) Depression Hypoproteinemia (HCC) Irritable bowel disease Keratoderma Migraine Ulcerative colitis (HCC) Patient reports she has not had migraines in a while. PAST SURGICAL HISTORY: PAST SURGICAL HISTORY Procedure Laterality Date COLONSCOPY SCREENING HIGH RISK LEEP PROCEDURE (W NOTE) LIGATE FALLOPIAN TUBE LMP one week ago; periods are light per patient and only last a few days. CURRENT MEDICATIONS: predniSONE (DELTASONE) 10 mg tablet Take 2 tablets by mouth once daily. risankizumab-rzaa (SKYRIZI) 360 mg/2.4 mL (150 mg/mL) wearable injector Inject 360 mg subcutaneously every 8 weeks. First dose at week 12, then every 8 weeks after that. clonazePAM (KLONOPIN) 0.5 mg tablet Take 0.5 mg by mouth twice daily as needed. desvenlafaxine ER (PRISTIQ) 50 mg 24 hr tablet Take 50 mg by mouth once daily. ALLERGIES: ALLERGIES No Known Allergies FAMILY HISTORY: FAMILY HISTORY Problem Relation Age of Onset Asthma Mother Hyperlipidemia Father other (Alchohol use) Father Heart disease Father Arthritis Father Mental illness Sister Mental illness Sister Asthma Maternal Grandmother Depression Maternal Grandmother Mental illness Maternal Grandmother other (other) Maternal Grandfather Hyperlipidemia Maternal Grandfather Alcohol abuse Paternal Grandmother Heart disease Paternal Grandfather Arthritis Paternal Grandfather Heart Attack Paternal Grandfather No family history of cancer, blood disorders, anemias. SOCIAL HISTORY: Social History Tobacco Use Smoking status: Former Current packs/day: 0.00 Types: Cigarettes Quit date: 12/01/2022 Years since quittin.7 Passive exposure: Past Smokeless tobacco: Never Vaping Use Vaping status: current everyday user Substances: Nicotine Devices: Disposable, Pre-filled or refillable cartridge Substance Use Topics Alcohol use: Yes Drug use: Not Currently Patient reports no alcohol use. REVIEW OF SYSTEMS GENERAL: +chills, patient attributes to chronic ice chewing. No weight loss, malaise or fevers. 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 Normal [facility] metabolic 2000 panelOrdered By: Yue Olmstead on 09-17-2024 Albumin [Mass/Vol] 4.1 g/dL 3.9 - 4.9 g/dL [facility] ALP [Catalytic activity/Vol] 60 U/L 34 - 123 U/L [facility] ALT [Catalytic activity/Vol] 16 U/L 7 - 38 U/L [facility] Anion gap [Moles/Vol] 9 mmol/L 8 - 15 mmol/L [facility] AST [Catalytic activity/Vol] 15 U/L 13 - 35 U/L [facility] Bilirubin [Mass/Vol] 0.2 mg/dL 0.2 - 1 .3 mg/dL [facility] Calcium [Mass/Vol] 9.4 mg/dL 8.5 - 10. 2 mg/dL [facility] Chloride [Moles/Vol] 104 mmol/L 98 - 10 7 mmol/L [facility] CO2 [Moles/Vol] 24 mmol/L 22 - 30 mmol/L [facility] Creatinine [Mass/Vol] 0.94 mg/dL 0.58 - 0.96 mg/dL [facility] GFR/1.73 sq M.predicted among non-blacks MDRD (S/P/Bld) [Vol rate/Area] 77 mL/min/{1.73_m2} - PINF [facility] Comment on above: Estimated Glomerular Filtration Rate (eGFR) is calculated using the 2020 CKD-EPI creatinine equation. This equation utilizes serum creatinine, sex, and age as parameters. The creatinine assay has traceable calibration to isotope dilution-mass spectrometry. Refer to KDIGO guidelines for clinical interpretation. In patients with unstable renal function, e.g. those with acute kidney injury, the eGFR may not accurately reflect actual GFR. Glucose [Mass/Vol] 98 mg/dL 74 - 99 mg/dL [facility] Comment on above: The [place] Diabete s Association (ADA) provides guidance for cutoff values for fasting glucose and random glucose. The ADA defines fasting as no caloric intake for at least 8 hours. Fasting plasma glucose results between 100 to 125 mg/dL indicate increased risk for diabetes (prediabetes). Fasting plasma glucose results greater than or equal to 126 mg/dL meet the criteria for diagnosis of diabetes. In the absence of unequivocal hyperglycemia, results should be confirmed by repeat testing. In a patient with classic symptoms of hyperglycemia or hyperglycemic crisis, random plasma glucose results greater than or equal to 200 mg/dL meet the criteria for diagnosis of diabetes. Reference: Standards of Medical Care in Diabetes 2016, [place] Diabetes Association. Diabetes Care. 2016.39(Suppl 1). Interpretation and review of laboratory results Normal [facility] Potassium [Moles/Vol] 3.8 mmol/L 3.7 - 5.1 mmol/L [facility] Protein [Mass/Vol] 6.9 g/dL 6.3 - 8.0 g/dL [facility] Sodium [Moles/Vol] 137 mmol/L 136 - 144 mmol/L [facility] Urea nitrogen [Mass/Vol] 9 mg/dL 7 - 21 mg/dL [facility] Comprehensive metabolic 2000 panelon 09-17-2024 Albumin [Mass/Vol] 4.1 g/dL Normal 3.9-4.9 [facility] Comment on above: Order Comment: Speci men Type: BLOOD SPECIMENOrdering Facility: [facility] Address: [address] [place] [address] Performed By: #### 2 532-0, ####[facility] LABCLIA [id number] [place] [address] ALP [Catalytic activity/Vol] 60 U/L Normal 34-123 [facility] Comment on above: Order Comment: Speci men Type: BLOOD SPECIMENOrdering Facility: [facility] Address: [address] [place] [address] Performed By: #### 2 532-0, ####[facility] LABCLIA [id number] [place] [address] ALT [Catalytic activity/Vol] 16 U/L Normal 7-38 [facility] Comment on above: Order Comment: Speci men Type: BLOOD SPECIMENOrdering Facility: [facility] Address: [address] [place] [address] Performed By: #### 2 532-0, ####[facility] LABCLIA [id number] [place] [address] Anion gap [Moles/Vol] 9 mmol/L Normal 8-15 [facility] Comment on above: Order Comment: Speci men Type: BLOOD SPECIMENOrdering Facility: [facility] Address: [address] [place] [address] Performed By: #### 2 532-0, ####[facility] LABCLIA [id number] [place] [address] AST [Catalytic activity/Vol] 15 U/L Normal 13-35 [facility] Comment on above: Order Comment: Speci men Type: BLOOD SPECIMENOrdering Facility: [facility] Address: [address] [place] [address] Performed By: #### 2 532-0, ####[facility] LABCLIA [id number] [place] [address] Bilirubin [Mass/Vol] 0.2 mg/dL Normal 0.2-1.3 [facility] Comment on above: Order Comment: Speci men Type: BLOOD SPECIMENOrdering Facility: [facility] Address: [address] [place] [address] Performed By: #### 2 532-0, ####[facility] LABCLIA [id number] [place] [address] Calcium [Mass/Vol] 9.4 mg/dL Normal 8.5-10.2 [facility] Comment on above: Order Comment: Speci men Type: BLOOD SPECIMENOrdering Facility: [facility] Address: [address] [place] [address] Performed By: #### 2 532-0, ####[facility] LABCLIA [id number] [place] [address] Chloride [Moles/Vol] 104 mmol/L Normal 98-107 [facility] Comment on above: Order Comment: Speci men Type: BLOOD SPECIMENOrdering Facility: [facility] Address: [address] [place] [address] Performed By: #### 2 532-0, ####[facility] LABCLIA [id number] [place] [address] CO2 [Moles/Vol] 24 mmol/L Normal 22-30 [facility] Comment on above: Order Comment: Speci men Type: BLOOD SPECIMENOrdering Facility: [facility] Address: [address] [place], [place] [address] Performed By: #### 2 532-0, ####[facility] LABCLIA [id number] [place] [address] Creatinine [Mass/Vol] 0.94 mg/dL Normal 0.58-0.96 [facility] Comment on above: Order Comment: Speci men Type: BLOOD SPECIMENOrdering Facility: [facility] Address: [address] [place] [address] Performed By: #### 2 532-0, 98826-3 ####[facility] LABCLIA [id number] [place] [address] Creatinine and Glomerular filtration rate.predicted panel (S/P/Bld) 77 mL/min/1.73m??? Normal >=60 [facility] Comment on above: Order Comment: Ayaka farrell Type: BLOOD SPECIMENOrdering Facility: [facility] Address: [address] [place] [address] Result Comment: Michelle mated Glomerular Filtration Rate (eGFR) is calculated using the 2020 CKD-EPI creatinine equation. This equation utilizes serum creatinine, sex, and age as parameters. The creatinine assay has traceable calibration to isotope dilution-mass spectrometry. Refer to KDIGO guidelines for clinical interpretation. In patients with unstable renal function, e.g. those with acute kidney injury, the eGFR may not accurately reflect actual GFR. Performed By: #### 2 532-0, 77445-9 ####[facility] LABCLIA [id number] [place] [address] Glucose [Mass/Vol] 98 mg/dL Normal 74-99 [facility] Comment on above: Order Comment: Ayaka farrell Type: BLOOD SPECIMENOrdering Facility: [facility] Address: [address] [place] [address] Result Comment: The [place] Diabetes Association (ADA) provides guidance for cutoff values for fasting glucose and random glucose. The ADA defines fasting as no caloric intake for at least 8 hours. Fasting plasma glucose results between 100 to 125 mg/dL indicate increased risk for diabetes (prediabetes). Fasting plasma glucose results greater than or equal to 126 mg/dL meet the criteria for diagnosis of diabetes. In the absence of unequivocal hyperglycemia, results should be confirmed by repeat testing. In a patient with classic symptoms of hyperglycemia or hyperglycemic crisis, random plasma glucose results greater than or equal to 200 mg/dL meet the criteria for diagnosis of diabetes. Reference: Standards of Medical Care in Diabetes 2016, [place] Diabetes Association. Diabetes Care. 2016.39(Suppl 1). Performed By: #### 2 532-0, ####[facility] LABCLIA [id number] [place] [address] Potassium [Moles/Vol] 3.8 mmol/L Normal 3.7-5.1 [facility] Comment on above: Order Comment: Speci men Type: BLOOD SPECIMENOrdering Facility: [facility] Address: [address] [place] [address] Performed By: #### 2 532-0, ####[facility] LABCLIA [id number] [place] [address] Protein [Mass/Vol] 6.9 g/dL Normal 6.3-8.0 [facility] Comment on above: Order Comment: Speci men Type: BLOOD SPECIMENOrdering Facility: [facility] Address: [address] [place] [address] Performed By: #### 2 532-0, ####[facility] LABIA [id number] [place] [address] Sodium [Moles/Vol] 137 mmol/L Normal 136-144 [facility] Comment on above: Order Comment: Speci men Type: BLOOD SPECIMENOrdering Facility: [facility] Address: [address] [place] [address] Performed By: #### 2 532-0, ####[facility] LABCLIA [id number] [place] [address] Urea nitrogen [Mass/Vol] 9 mg/dL Normal 7-21 [facility] Comment on above: Order Comment: Speci men Type: BLOOD SPECIMENOrdering Facility: [facility] Address: [address] [place] [address] Performed By: #### 2 532-0, ####[facility] LABIA [id number] [place] [address] [facility] 10-18-2024 Erythropoietin (EPO) Qn 60.0 mIU/mL High 2.6-18.5 [facility] Comment on above: Order Comment: Speci men Type: BLOOD SPECIMENOrdering Facility: [facility] Address: [address] [place] [address] Performed By: #### 1 5061-5 ####[facility] LABCLIA [id number] [place] [address] [place] Ferritin SerPl-mCncon 2023 Ferritin [Mass/Vol] 6.5 ng/mL Low 14.7-205.1 [facility] Comment on above: Order Comment: Speci men Type: BLOOD SPECIMENOrdering Facility: [facility] Address: [address] [place] [address] Performed By: #### 3 016-3, 4542-7, 2276-4, 49307-6 ####[facility] LABCLIA [id number] [place] [address] [place] Folate SerPl-mCncon 09-17-20 Folate [Mass/Vol] 17.7 ng/mL Normal >4.7 [facility] Comment on above: Order Comment: Speci men Type: BLOOD SPECIMENOrdering Facility: [facility] Address: [address] [place] [address] Performed By: #### 2 132-9, 2885-2, 2284-8 ####[facility] LABCLIA [id number] [place] [address] [place] Haptoglob SerPl-mCncon 09-17 Haptoglobin [Mass/Vol] 143 mg/dL Normal 31-238 [facility] Comment on above: Order Comment: Speci men Type: BLOOD SPECIMENOrdering Facility: [facility] Address: [address] [place] [address] Performed By: #### 3 016-3, 4542-7, 2276-4, 67293-0 ####[facility] LABCLIA [id number] [address] IMMUNOFIXATION SCREEN, SERUM on 09-17-2024 MPA RESULT No M protein is identified. Normal No M protein is identified. [facility] Comment on above: Order Comment: Speci men Type: BLOOD SPECIMENOrdering Facility: [facility] Address: [address] [place] [address] Performed By: #### I FES ####[facility] LABCLIA [id number] [address] STAFF REVIEW (MPA) Reviewed by Dr. Mihai Healy MD [facility] Comment on above: Order Comment: Speci men Type: BLOOD SPECIMENOrdering Facility: [facility] Address: [address] [place] [address] Performed By: #### I [facility] ####[facility] LABCLIA [id number] [place] [address] [place] IMMUNOGLOBULINS,IGG,IGA,IGMo n 09-17-2024 IgA [Mass/Vol] 153 mg/dL Normal 70-400 [facility] Comment on above: Order Comment: Speci men Type: BLOOD SPECIMEN [facility] Address: [address] [place] [address] Performed By: #### 5 8410-2 #### DORIST [facility] CLIA [id number] [address] [place] [address] [place] IgG [Mass/Vol] 838 mg/dL Normal 700-1600 [facility] Comment on above: Order Comment: Speci men Type: BLOOD SPECIMEN [facility] Address: [address] [place] [address] Performed By: #### 5 8410-2 #### AMHYELITZAT [facility] CLIA [id number] [address] [place], [place] [address] [place] IgM [Mass/Vol] 212 mg/dL Normal 40-230 [facility] Comment on above: Order Comment: Speci men Type: BLOOD SPECIMEN [facility] Address: [address] [place] [address] Performed By: #### 5 8410-2 #### AMHERST [facility] CLIA [id number] [address] [place] [address] [place] Iron and Iron binding capaci ty panelon 09-17-2024 Iron [Mass/Vol] 12 ug/dL Low 41-186 [facility] Comment on above: Order Comment: Speci men Type: BLOOD SPECIMENOrdering Facility: [facility] Address: [address] [place] [address] Performed By: #### 3 016-3, 4542-7, 2276-4, 52653-8 ####[facility] LABIA [id number] [place] [address] [place] Iron binding capacity [Mass/Vol] 393 ug/dL High 232-386 [facility] Comment on above: Order Comment: Speci men Type: BLOOD SPECIMENOrdering Facility: [facility] Address: [address] [place] [address] Performed By: #### 3 016-3, 4542-7, 2276-4, 67505-2 ####[facility] LABIA [id number] [place] [address] [place] Iron/TIBC [Molar ratio] 3.1 % Low 15.0-57.0 [facility] Comment on above: Order Comment: Speci men Type: BLOOD SPECIMENOrdering Facility: [facility] Address: [address] [place] [address] Performed By: #### 3 016-3, 4542-7, 2276-4, 07587-8 ####[facility] LABIA [id number] [place] [address] [place] KAPPA/WHALEN,FREE,SERon 2023 Immunoglobulin light chains.kappa.free (S) [Mass/Vol] 13.9 mg/L Normal 3.3-19.4 [facility] Comment on above: Order Comment: Speci men Type: BLOOD SPECIMEN [facility] Address: [address] [place] [address] Result Comment: Rare ly, increased serum free light chains levels may not be detected or accurately quantified due to prozone phenomenon or in high viscosity samples using this immunoturbidimetric assay. Correlation with other laboratory results and clinical findings is recommended. The Mun[place] Free Light Chain was performed using the Binding Site Optilite immunoturbidimetric method. Result obtained with different assay methods or kits cannot be used interchangeably. Performed By: #### 5 8410-2 #### [facility]T [facility] CLIA [id number] [address] [place] [address] [place] Immunoglobulin light chains.kappa/Immunogl obulin light chains.lambda (S) [Mass ratio] 1.12 Normal 0.26-1.65 [facility] Comment on above: Order Comment: Speci men Type: BLOOD SPECIMEN [facility]: [facility] Address: [address] [place] [address] Performed By: #### 5 8410-2 #### [facility]T [facility] CLIA [id number] [address] [place] [address] [place] Immunoglobulin light chains.lambda.free [Mass/Vol] 12.4 mg/L Normal 5.7-26.3 [facility] Comment on above: Order Comment: Speci men Type: BLOOD SPECIMEN [facility]ing [facility]: [facility] Address: [address] [place] [address] Result Comment: Rare ly, increased serum free light chains levels may not be detected or accurately quantified due to prozone phenomenon or in high viscosity samples using this immunoturbidimetric assay. Correlation with other laboratory results and clinical findings is recommended. The Lambda Free Light Chain was performed using the Binding Site Optilite immunoturbidimetric method. Result obtained with different assay methods or kits cannot be used interchangeably. Performed By: #### 5 8410-2 #### [facility]T [facility] CLIA [id number] [address] [place] [address] [place] LACTATE DEHYDROGENASEon 10-1 8-2024 LDH [Catalytic activity/Vol] 224 U/L High 135 - 214 U/L [facility] LDH SerPl-cCncon 09-17-2024 LDH [Catalytic activity/Vol] 224 U/L High 135-214 [facility] Comment on above: Order Comment: Speci men Type: BLOOD SPECIMENOrdering Facility: [facility] Address: [address] [place] [address] Performed By: #### 2 532-0, 89892-9 ####[facility] LABCLIA [id number] [place] [address] LDH [Catalytic activity/Vol] on 09-17-2024 Interpretation and review of laboratory results Abnormal [facility] No Panel InformationOrdered By: Yue Olmstead on 09-17-2024 [facility] No Panel Informationon 09-17 [facility] PROTEIN ELECTROPHORESIS SERU M (P)on 09-17-2024 Albumin [Mass/Vol] 4.12 g/dL Normal 3.43-5.41 [facility] Comment on above: Order Comment: Speci men Type: BLOOD SPECIMENOrdering Facility: [facility] Address: [address] [place] [address] Performed By: #### L [id number] ####[facility] LABCLIA [id number] [place] [address] [place] Alpha 1 globulin Elph [Mass/Vol] 0.33 g/dL Normal 0.18-0.43 [facility] Comment on above: Order Comment: Speci men Type: BLOOD SPECIMENOrdering Facility: [facility] Address: [address] [place] [address] Performed By: #### L [id number] ####[facility] LABCLIA [id number] [place] [address] [place] Alpha 2 globulin Elph [Mass/Vol] 0.65 g/dL Normal 0.42-0.98 [facility] Comment on above: Order Comment: Speci men Type: BLOOD SPECIMENOrdering Facility: [facility] Address: [address] [place] [address] Performed By: #### L [id number] ####[facility] LABCLIA [id number] [place] [address] [place] Beta globulin Elph [Mass/Vol] 0.86 g/dL Normal 0.61-1.17 [facility] Comment on above: Order Comment: Speci men Type: BLOOD SPECIMENOrdering Facility: [facility] Address: [address] [place] [address] Performed By: #### L [id number] ####[facility] LABCLIA [id number] [place] [address] [place] Gamma globulin Elph [Mass/Vol] 0.83 g/dL Normal 0.53-1.51 [facility] Comment on above: Order Comment: Speci men Type: BLOOD SPECIMENOrdering Facility: [facility] Address: [address] [place] [address] Performed By: #### L [id number] ####[facility] LABIA [id number] [place] [address] [place] M-PROTEIN LOCATION Normal [facility] Comment on above: Order Comment: Speci men Type: BLOOD SPECIMENOrdering Facility: [facility] Address: [address] [place] [address] Result Comment: Not Applicable. Performed By: #### L [id number] ####[facility] LABCLIA [id number] [place] [address] [place] Protein Fractions [Interp] No definitive M protein is identified on protein electrophoresis. Normal No definitive M protein is identified on protein electrophore sis. [facility] Comment on above: Order Comment: Speci men Type: BLOOD SPECIMENOrdering Facility: [facility] Address: [address] [place] [address] Performed By: #### L [id number] ####[facility] LABIA [id number] [place] [address] [place] Protein.monoclonal Elph [Mass/Vol] 0.00 g/dL Normal <=0.00 [facility] Comment on above: Order Comment: Speci men Type: BLOOD SPECIMENOrdering Facility: [facility] Address: [address] [place] [address] Performed By: #### L [id number] ####[facility] LABCLIA [id number] [place] [address] [place] SPE STAFF REVIEW Reviewed by Dr. Mihai Healy MD [facility] Comment on above: Order Comment: Speci men Type: BLOOD SPECIMENOrdering Facility: [facility] Address: [address] [place] [address] Performed By: #### L [id number] ####[facility] LABCLIA [id number] [place] [address] [place] Prot SerPl-mCncon 09-17-2024 Protein [Mass/Vol] 6.8 g/dL Normal 6.3-8.0 [facility] Comment on above: Order Comment: Speci men Type: BLOOD SPECIMENOrdering Facility: [facility] Address: [address] [place] [address] Performed By: #### 2 132-9, 2885-2, 2284-8 ####[facility] LABCLIA [id number] [place] [address] [place] RETICULOCYTE COUNTon 024 Reticulocytes (Bld) [#/Vol] 0.072 10*3/uL [facility] Retics #on 09-17-2024 Reticulocytes (Bld) [#/Vol] 0.82256 10*3/uL Normal 0.018-0.100 [facility] Comment on above: Order Comment: Speci men Type: BLOOD SPECIMENOrdering Facility: [facility] Address: [address] [place] [address] Performed By: #### 5 7021-8, 02648-9 ####[facility] LABCL[facility] [id number] [place] [address] Reticulocytes (Bld) [#/Vol]o n 09-17-2024 Interpretation and review of laboratory results Normal [facility] Reticulocytes/100 RBC (Bld) 1.6 % 0.4 - 2.0 % [facility] Reticulocytes/100 RBC (Bld) 1.6 % Normal 0.4-2.0 [facility] Comment on above: Order Comment: Speci men Type: BLOOD SPECIMENOrdering Facility: [facility] Address: [address] [place] [address] Performed By: #### 5 7021-8, 31131-8 ####[facility] LABCLIA [id number] [place] [address] TSH SerPl-aCncon 09-17-2024 TSH Qn 0.822 m[IU]/L Normal 0.270-4.200 [facility] Comment on above: Order Comment: Speci men Type: BLOOD SPECIMENOrdering Facility: [facility] Address: [address] [place] [address] Result Comment: If t he patient is , TSH reference range varies by gestational period: First Trimester (weeks 9-12): 0.180-2.990 mIU/L Second Trimester: 0.110-3.980 mIU/L Third Trimester: 0.480-4.710 mIU/L Memo Andino et al. A Practical Approach for the Verifications and Determination of Site- and Trimester-Specific Reference Intervals for Thyroid Function tests in . Thyroid, 2019:29:3:412-420. Blu Pratt, et al. 2017 Guidelines of the [place] Thyroid Association for the Diagnosis and Management of Thyroid Disease during and the . Thyroid, 2017:27:3:315-389. Performed By: #### 3 016-3, 4542-7, 2276-4, 54589-4 ####[facility] LABCLIA [id number] [place] [address] [place] Vit B12 SerPl-mCncon 024 Cobalamin (Vitamin B12) [Mass/Vol] 616 pg/mL Normal 232-1245 [facility] Comment on above: Order Comment: Speci men Type: BLOOD SPECIMENOrdering Facility: [facility] Address: [address] [place] [address] Performed By: #### 2 132-9, 2885-2, 2284-8 ####[facility] LABCLIA [id number] [id number] OF [facility] CNPNon 09-13-2024 CNPN Telephone ([facility]) ANGELA ELAM ([id number]) 1980 F Date Time Provider Department 09/13/24 MAK MARTINEZ During your visit today, we recorded the following information about you: Jonathon Newell 09/17/2024 11:18 AM Addendum MAK Tony PEER TO PEER I called the insurance rep and she told me it is still pending and we have to complete peer to peer before 10/08/2024. So please kindly look into this and do needful. Call for Peer to Peer - [phone] then option 2-5-2 Thank You === PHARMACY TEAM ==== PEER TO PEER/APPEAL REQUESTED PROVIDER TO COMPLETE Melanie Lechuga RN 09/17/2024 12:17 PM Signed I just got off the phone with patient's insurance. For full documentation, please see encounter dated 09/01/24. Rep that I spoke to stated the denial was overturned on 09/14/24. Should receive fax stating this at some point today. Melanie Lechuga RN Allergies As of Date: 09/13/2024 (No Known Allergies) Date Reviewed: 01/09/2024 Reviewed by: Sonia Jc MD - Fully Assessed Reason for Visit: Insurance Authorization [[id number]] Cmt: Peer to Peer , , VENITA MILLER, [id number] MAK [address] Prescriptions as of 09/17/2024 - predniSONE (DELTASONE) 10 mg tablet Take 2 tablets by mouth once daily. - risankizumab-rzaa (SKYRIZI) 360 mg/2.4 mL (150 mg/mL) wearable injector Inject 360 mg subcutaneously every 8 weeks. First dose at week 12, then every 8 weeks after that. - escitalopram oxalate (LEXAPRO ORAL) Take 40 mg by mouth. - clonazePAM (KLONOPIN) 0.5 mg tablet Take 0.5 mg by mouth twice daily as needed. Problem List As Of Date 09/13/2024 Noted Resolved Iron deficiency anemia due to chronic blood los*12/25/2021 Ulcerative pancolitis without complication (HCC*03/31/2023 Anxiety [F41.9] 05/19/2020 Vapes nicotine containing substance [Z72.0] 03/31/2023 Migraines [G43.909] 03/31/2023 Chronic neck pain [M54.2, G89.29] 03/31/2023 C. difficile colitis [A04.72] 03/31/2023 Nicotine use disorder, F17.2 [F17.200] 03/31/2023 Clostridium difficile colitis [A04.72] 04/01/2023 Encounter Status:Closed by JONATHON NEWELL on 09/13/24 Normal [facility] C. difficile toxin A+B tcdA+ tcdB genes ART+probe Ql (Stl)on 09-09-2024 C. difficile toxin B Cytotoxin tissue culture assay Ql (Stl) Comment [facility] Comment on above: Negative No cytotoxin detected. Reference Range: Negative Performed at: 01 - [address] [id number] Consulting Group Analyst: Angel Lorenzana PhD, Phone: [phone] [facility] CNCOon 09-09-2024 CNCO Letter Text Normal [facility] CNOVon 01-08-2024 CNOV Office Visit (CORSAV ) ANGELA ELAM ([id number]) 1980 F Date Time Provider Department 01/08/24 3:00 PM SONIA JC During your visit today, we recorded the following information about you: Weight Height 94 kg 1.676 m Sonia Jc MD 01/09/2024 4:49 PM Signed [facility] January 08, 2024 Angela Elam This consult was requested by Dr. Mak Martinez and my final recommendations will be communicated to the requesting health care provider by way of the shared medical record for internal providers or letter via the [employer] for external providers. Chief Complaint: ulcerative colitis History of Present Illness: Angela Elam is a 43 year old female presents to the office for evaluation of ulcerative colitis. 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 She is currently on a prednisone, but for prior treatments has used Mesalamine, (ineffective), budesonide, Humira (switched to Entyvio, but only had 3 injections - unclear if there was enough time for response), Entyvio x 1 year (partial control), Stelara every 6 weeks (lost response) and Zemposia (intolerable d/t visual disturbances). She was recently hospitalized at [place] between 03/30-04/05 for bloody diarrhea. Although she was C. Diff PCR (+), toxin (-), she was treated with oral vancomycin. Number of BMs daily: 10-15 with cramps, urgency. Hematochezia: yes FI: yes Weight loss in the last 6 months: weight gain Prior meds: Humira, stelara, zeposia, remicade Current meds: Prednisone GI: Michelle Initial diagnosis: 6 years ago Location: Pancolitis PMH: n/a PSH: tubal ligation Current or former smoker: quit one year ago CT abdomen/pelvis on 03/30/23: IMPRESSION: Findings consistent with colitis. Sigmoidoscopy on 04/01/[address] Isadora Roberto - Perianal skin tags found on perianal exam. - Pseudomembranous colitis. - Severe (Vanessa Score 3) ulcerative colitis. Biopsied. Pathology: A. Sigmoid colon, biopsy: - Chronic active colitis with ulcer exudate. - Negative for dysplasia. B. Rectum, biopsy: - Chronic active proctitis. - Negative for dysplasia. Colonoscopy on 10/15/[address] Bill Yusuf - severely active ulcerative pancolitis with pseudopolyposis, biopsies obtained. View External Procedures - Colonoscopy [ID [id number]] Pathology: -chronic active colitis with ulcer Scan on 11/19/2021 9:18 AM by Provider, External, PA-C: Pathology PAST MEDICAL HISTORY Diagnosis Date Blood disorder 12/2021 Ulcerative colitis (HCC) PAST SURGICAL HISTORY Procedure Laterality Date COLONSCOPY SCREENING HIGH RISK LEEP PROCEDURE (W NOTE) LIGATE FALLOPIAN TUBE Current Outpatient Medications Medication Sig Dispense Refill predniSONE (DELTASONE) 10 mg tablet Take 1 tablet by mouth once daily. 30 tablet 1 azaTHIOprine (IMURAN) 50 mg tablet Take 1 tablet by mouth once daily for 30 days, THEN 2 tablets once daily. 150 tablet 0 escitalopram oxalate (LEXAPRO ORAL) Take 40 mg by mouth. UBRELVY 100 mg tablet TAKE 1 TABLET BY MOUTH MAY TAKE 2ND DOSE AT LEAST 2 HOURS AFTER NEEDED ONCE DAILY clonazePAM (KLONOPIN) 0.5 mg tablet Take 0.5 mg by mouth twice daily as needed. No current facility-administered medications for this visit. ALLERGIES No Known Allergies FAMILY HISTORY Problem Relation Age of Onset Heart Attack Paternal Grandfather Social History Tobacco Use Smoking status: Former Types: Cigarettes Quit date: 12/01/2022 Years since quittin.1 Smokeless tobacco: Never Vaping Use Vaping Use: current everyday user Substances: Nicotine Devices: Disposable, Pre-filled or refillable cartridge Substance Use Topics Alcohol use: Not Currently Drug use: Not Currently Physical Exam: Ht 167.6 cm (5' 6 ) Wt 94 kg (207 lb 3.7 oz) LMP 03/09/2023 BMI 33.45 kg/m? General Appearance: Well appearing, alert, in no acute distress, well-hydrated, well nourished. Abdomen: soft ND NT Assessment Assessment and Plan: Angela Elam is a 43 year old female with ulcerative pancolitis refractory to medication currently on steroids who presents to discuss surgical options. Three stage TPC, IPAA with goal of getting off steroids prior to proctectomy. We discussed risks of surgery and expected bowel function after a pouch. Stoma RN consultation We discussed the risks and benefits of surgery including injury to other structures, bleeding, infection, return to the OR, ileus, as well as the possibility of medical complications of surgery including DVT/PE, PNA, [place], stroke, and . The patient understands these risks and is in agreement with proceeding. Medical Decision Making: Data Reviewed: Tests AND Documents Reviewed/ordered: Review of prior notes from GI Review of Pathology Review of Imaging: CT Abdomen, CT Pelvis Rev (more content not included)... Normal [facility] CARDIAC ELKE 3-6on 3 CK [Catalytic activity/Vol] 47 U/L Normal 26-192 [facility] Comment on above: Performed By: #### C RP, CK, CMADM, BMP #### [facility] [address] [place] [address] Dr. Baldev Moreau CK.MB [Mass/Vol] 1.11 ng/mL Normal <=3.60 [facility] Comment on above: Performed By: #### C RP, CK, CMADM, BMP #### [facility] [address] [place] [address] Dr. Baldev Moreau HSTROP 5.4 pg/mL Normal 4.0-51.3 [facility] Comment on above: Result Comment: CUT- OFF POINTS HAVE BEEN ESTABLISHED BASED ON THE FOURTH UNIVERSAL DEFINITIONS OF MYOCARDIAL INFARCTION. THE UPPER REFERENCE LIMIT (URL) OF TROPONIN, DEFINED THE 99TH PERCENTILE OF cTnI DISTRIBUTION IN A REFERENCE POPULATION, HAS BEEN CONFIRMED THE DECISION THRESHOLD FOR [place] DIAGNOSIS. Performed By: #### C RP, CK, CMADM, BMP #### [facility] [address] [address] [address] Baldev Moreau CARDIAC ELKE ADMITon 023 CK [Catalytic activity/Vol] 56 U/L Normal 26-192 [facility] Comment on above: Performed By: #### C RP, CK, CMADM, BMP #### [facility] [address] [place] [address] Dr. Baldev Moreau CK.MB [Mass/Vol] 1.13 ng/mL Normal <=3.60 [facility] Comment on above: Performed By: #### C RP, CK, CMADM, BMP #### [facility] [address] [place] [address] Dr. Baldev Moreau HSTROP 6.3 pg/mL Normal 4.0-51.3 [facility] Comment on above: Result Comment: CUT- OFF POINTS HAVE BEEN ESTABLISHED BASED ON THE FOURTH UNIVERSAL DEFINITIONS OF MYOCARDIAL INFARCTION. THE UPPER REFERENCE LIMIT (URL) OF TROPONIN, DEFINED THE 99TH PERCENTILE OF cTnI DISTRIBUTION IN A REFERENCE POPULATION, HAS BEEN CONFIRMED THE DECISION THRESHOLD FOR [place] DIAGNOSIS. Performed By: #### C RP, CK, CMADM, BMP #### [facility] [address] [place] [address] Dr. Baldev Moreau LANDY 43 ng/mL Normal 9-82 [facility] Comment on above: Performed By: #### C RP, CK, CMADM, BMP #### [facility] [address] [place] [address] Dr. Baldev Moreau CBC AUTO DIFFon 02-20-2023 BASO # 0.0 103/ul Normal 0.0-0.1 [facility] Comment on above: Performed By: #### C BC #### [facility] [address] [place] [address] Dr. Baldev Moreau Basophils/100 WBC (Bld) 0.4 % Normal 0.2-2.0 [facility] Comment on above: Performed By: #### C BC #### [facility] [address] [place] [address] Dr. Baldev Moreau EO # 0.6 103/ul Normal 0.0-0.7 [facility] Comment on above: Performed By: #### C BC #### [facility] [address] [place] [address] Dr. Baldev Moreau Eosinophils/100 WBC (Bld) 7.1 % Critically high 0.9-7.0 [facility] Comment on above: Performed By: #### C BC #### [facility] [address] [place] [address] Dr. Baldev Moreau Erythrocyte distribution width (RBC) [Ratio] 12.6 % Normal 11.0-15.0 [facility] Comment on above: Performed By: #### C BC #### [facility] [address] [place] [address] Dr. Baldev Moreau Hematocrit (Bld) [Volume fraction] 37.5 % Normal 36.0-48.0 [facility] Comment on above: Performed By: #### C BC #### [facility] [address] [place] [address] Dr. Baldev Moreau Hemoglobin (Bld) [Mass/Vol] 12.5 g/dL Normal 12.0-16.0 [facility] Comment on above: Performed By: #### C BC #### [facility] [address] [place] [address] Dr. Baldev Moreau IG # 0.04 10e3/ul Critically high 0.00-0.03 [facility] Comment on above: Performed By: #### C BC #### [facility] [address] [place] [address] Dr. Baldev Moreau IG % 0.5 % Normal 0.0-0.5 [facility] Comment on above: Performed By: #### C BC #### [facility] [address] [place] [address] Dr. Baldev Moreau LYMPH # 1.5 103/ul Normal 1.2-3.8 [facility] Comment on above: Performed By: #### C BC #### [facility] [address] [place] [address] Dr. Baldev Moreau Lymphocytes/100 WBC (Bld) 18.8 % Critically low 20.5-60.0 [facility] Comment on above: Performed By: #### C BC #### [facility] [address] [place] [address] Dr. Baldev Moreau MANUAL DIFF REQ NO Normal [facility] Comment on above: Performed By: #### C BC #### [facility] [address] [place] [address] Dr. Baldev Moreau MCH (RBC) [Entitic mass] 30.0 pg Normal 26.7-34.0 [facility] Comment on above: Performed By: #### C BC #### [facility] [address] [place] [address] Dr. Baldev Moreau MCHC (RBC) [Mass/Vol] 33.3 g/dL Normal 29.9-35.2 [facility] Comment on above: Performed By: #### C BC #### [facility] [address] [place] [address] Dr. Baldev Moreau MCV (RBC) [Entitic vol] 90.1 fL Normal 81.0-99.0 [facility] Comment on above: Performed By: #### C BC #### [facility] [address] [place] [address] Dr. Baldev Moreau MONO # 0.7 103/ul Normal 0.3-0.8 [facility] Comment on above: Performed By: #### C BC #### [facility] [address] [place] [address] Dr. Baldev Moreau Monocytes/100 WBC (Bld) 9.1 % Normal 1.7-12.0 [facility] Comment on above: Performed By: #### C BC #### [facility] [address] [place] [address] Dr. Baldev Moreau NEUT # 5.2 103/ul Normal 1.4-6.5 [facility] Comment on above: Performed By: #### C BC #### [facility] [address] [place] [address] Dr. Baldev Moreau Neutrophils/100 WBC (Bld) 64.1 % Normal 43.0-75.0 [facility] Comment on above: Performed By: #### C BC #### [facility] [address] [place] [address] Dr. Baldev Moreau Platelet mean volume (Bld) [Entitic vol] 8.3 fL Critically low 9.5-13.5 [facility] Comment on above: Performed By: #### C BC #### [facility] [address] [place] [address] Dr. Baldev Moreau PLT 275 103/ul Normal 150-450 [facility] Comment on above: Performed By: #### C BC #### [facility] [address] [address] [address] Baldev Moreau RBC 4.16 106/ul Critically low 4.20-5.40 [facility] Comment on above: Performed By: #### C BC #### [facility] [address] [address] [address] Baldev Moreau WBC 8.1 103/ul Normal 4.0-11.0 [facility] Comment on above: Performed By: #### C BC #### [facility] [address] [place] [address] Dr. Baldev Moreau CRPon 02-20-2023 CRP 0.8 mg/dL Normal <=1.0 [facility] Comment on above: Performed By: #### C RP, CK, CMADM, BMP #### [facility] [address] [address] [address] Baldev Moreau Covid-19 PCR (CVDTB)on 01-30 SARS-CoV-2 (COVID-19) RNA ART+probe Ql (Unsp spec) Not detected Normal NOT DETECTED [facility] Comment on above: Result Comment: This test is not yet approved or cleared by the [place] FDA. When there are no FDA-approved or cleared tests available, and other criteria are met, FDA can make tests available under an emergency access mechanism called an Emergency Use Authorization (EUA). The EUA for this test is supported by the [place] of Health and Human Service's (HHS's) declaration that circumstances exist to justify the emergency use of in vitro diagnostics for the detection and/or diagnosis of the virus that causes COVID-19. This EUA will remain in effect (meaning this test can be used) for the duration of the COVID-19 declaration justifying emergency of IVDs, unless it is terminated or revoked by FDA (after which the test may no longer be used). When diagnostic testing is negative, the possibility of a false negative should be considered in the context of a patient's recent exposures and the presence of clinical signs and symptoms consistent with SARS-CoV-2. Performed By: #### C VDTB #### [facility] [address] [place] [address] Dr. Baldev HERNÁNDEZ URINE PROFILEon 3 Bilirubin Ql (U) Negative Normal NEGATIVE [facility] Comment on above: Performed By: #### E RUR #### [facility] [address] [place] [address] Dr. Baldev Moreau Clarity (U) CLEAR Normal CLEAR [facility] Comment on above: Performed By: #### E RUR #### [facility] [address] [place] [address] Dr. Baldev Moreau Color (U) YELLOW Normal YELLOW [facility] Comment on above: Performed By: #### E RUR #### [facility] [address] [place] [address] Dr. Baldev AN A micrscopic examination will be performed if indicated. Normal [facility] Comment on above: Performed By: #### E RUR #### [facility] [address] [place] [address] Dr. Baldev Moreau Glucose Ql (U) Negative Normal NEGATIVE [facility] Comment on above: Performed By: #### E RUR #### [facility] [address] [place] [address] Dr. Baldev Moreau Hemoglobin Ql (U) Negative Normal NEGATIVE [facility] Comment on above: Performed By: #### E RUR #### [facility] [address] [place] [address] Dr. Baldev Moreau Ketones Ql (U) Negative Normal NEGATIVE [facility] Comment on above: Performed By: #### E RUR #### [facility] [address] [place] [address] Dr. Baldev Moreau LEUKOCYTES Negative Normal NEGATIVE [facility] Comment on above: Performed By: #### E RUR #### [facility] [address] [place] [address] Dr. Baldev Moreau Nitrite Ql (U) Negative Normal NEGATIVE [facility] Comment on above: Performed By: #### E RUR #### [facility] [address] [place] [address] Dr. Baldev Moreau pH (U) 5.5 [pH] Normal 5-9 [facility] Comment on above: Performed By: #### E RUR #### [facility] [address] [place] [address] Dr. Baldev Moreau SPEC GRAVITY >=1.030 Abnormal 1.005-<=1.[address] [place] [address] Comment on above: Performed By: #### E RUR #### [facility] [address] [place] [address] Dr. Baldev Moreau UA PROTEIN Negative Normal NEGATIVE/ TRACE [facility] Comment on above: Performed By: #### E RUR #### [facility] [address] [place] [address] Dr. Baldev Moreau UR MICRO IND NOT INDICATED Normal [facility] Comment on above: Performed By: #### E RUR #### [facility] [address] [place] [address] Dr. Baldev Moreau Urobilinogen Qn (U) 0.2 {Edinson'U}/dL Normal 0.2 - 1. 0 [facility] Comment on above: Performed By: #### E RUR #### [facility] [address] [place] [address] Dr. Baldev Moreau GROUP A STREP CULTUREon 01-30 S. pyogenes Ag Ql (Unsp spec) Culture Observations: NEGATIVE FOR GROUP A STREPTOCOCCUS. Normal [facility] Comment on above: Performed By: #### G RASTCX, SSCRN #### [facility] [address] [place] [address] Dr. Baldev Moreau LACTATE/LACTIC ACIDon 2022 Lactate [Moles/Vol] 1.3 mmol/L Normal 0.4-2.0 [facility] Comment on above: Performed By: #### C RP, CK, CMADM, BMP #### [facility] [address] [place] [address] Dr. Baldev Moreau Lactate [Moles/Vol] 2.2 mmol/L Critically high 0.4-2.0 [facility] Comment on above: Performed By: #### C RP, CK, CMADM, BMP #### [facility] [address] [place] [address] Dr. Baldev Moreau PROF CHEM 8 (BAS METB)on Anion gap [Moles/Vol] 14.5 mmol/L Normal [facility] Comment on above: Performed By: #### C RP, CK, CMADM, BMP #### [facility] [address] [place] [address] Dr. Baldev Moreau Calcium [Mass/Vol] 9.1 mg/dL Normal 8.5-10.1 [facility] Comment on above: Performed By: #### C RP, CK, CMADM, BMP #### [facility] [address] [place] [address] Dr. Baldev Moreau Chloride [Moles/Vol] 102 mmol/L Normal 98-107 [facility] Comment on above: Performed By: #### C RP, CK, CMADM, BMP #### [facility] [address] [place] [address] Dr. Baldev Moreau CO2 [Moles/Vol] 24.9 mmol/L Normal 21.0-32.0 [facility] Comment on above: Performed By: #### C RP, CK, CMADM, BMP #### [facility] [address] [place] [address] Dr. Baldev Moreau Creatinine [Mass/Vol] 0.77 mg/dL Normal 0.55-1.02 [facility] Comment on above: Performed By: #### C RP, CK, CMADM, BMP #### [facility] [address] [place] [address] Dr. Baldev Moreau EGFR-AF NIGERIAN >60 Normal >=60 [facility] Comment on above: Performed By: #### C RP, CK, CMADM, BMP #### [facility] [address] [place] [address] Dr. Baldev Moreau EGFR-NON AF NIGERIAN >60 Normal >=60 [facility] Comment on above: Performed By: #### C RP, CK, CMADM, BMP #### [facility] [address] [address] [address] Baldev Moreau Glucose [Mass/Vol] 98 mg/dL Normal 74-106 [facility] Comment on above: Performed By: #### C RP, CK, CMADM, BMP #### [facility] [address] [place] [address] Dr. Baldev Moreau Potassium [Moles/Vol] 3.4 mmol/L Critically low 3.5-5.1 [facility] Comment on above: Performed By: #### C RP, CK, CMADM, BMP #### [facility] [address] [address] [address] Baldev Moreau Sodium [Moles/Vol] 138 mmol/L Normal 136-145 [facility] Comment on above: Performed By: #### C RP, CK, CMADM, BMP #### [facility] [address] [place] [address] Dr. Baldev Moreau Urea nitrogen [Mass/Vol] 8.0 mg/dL Normal 7.0-18.0 [facility] Comment on above: Performed By: #### C RP, CK, CMADM, BMP #### [facility] [address] [place] [address] Dr. Baldev Moreau Urea nitrogen/Creatinine [Mass ratio] 10.4 mg/mg Normal [facility] Comment on above: Performed By: #### C RP, CK, CMADM, BMP #### [facility] [address] [place] [address] Dr. Baldev Moreau STREPT SCREENon 02-20-2023 STREP SCREEN A Negative Normal NEGATIVE [facility] Comment on above: Performed By: #### G RASTCX, SSCRN #### [facility] [address] [place] [address] Dr. Baldev Moreau SYMPTOMATIC COVID-19 ANTIGEN on 02-20-2023 EUA Statement SEE BELOW Normal [facility] Comment on above: Result Comment: This test has not been FDA cleared or approved, but has been authorized by the FDA under an Emergency Use Authorization (EUA) for use by authorized laboratories certified under CLIA that meet the requirements to perform moderate or high complexity testing. This test has been authorized only for the detection of proteins from SARS-CoV-2, not for any other viruses or pathogens. The emergency use of this test is authorized for the duration of the declaration that circumstances exist justifying the authorization of emergency use of in vitro diagnostic tests for detection and/or diagnosis of Covid-19 under section 564(b)(1) of the Act, 21 U.S.C. 360bbb-3(b)(1), unless the declaration is terminated or authorization is revoked sooner. Performed By: #### C RP, CK, CMADM, BMP #### [facility] [address] [place] [address] Dr. Baldev Moreau SARS-CoV-2 (COVID-19) RNA ART+probe Ql (Unsp spec) Negative Normal NEGATIVE [facility] Comment on above: Performed By: #### C RP, CK, CMADM, BMP #### [facility] [address] [address] [address] Baldev Moreau XR ABD FLAT UP_PA Charbel 02-20 XR ABD FLAT UP_PA CH EXAM: XR ABD FLAT UP_PA CH HISTORY: Chest pain; technologist notes state sort throat, cough, chest heaviness, history of colitis, stomach pain, headache, jaw pain and history of migraines. COMPARISON: None. TECHNIQUE: PA chest, AP upright abdomen and 2 AP supine views abdomen performed. FINDINGS: CHEST: The trachea is midline. The heart size is normal. The mediastinal and hilar shadows are normal. The lung mata are clear. There is no pneumothorax. There is no osseous abnormality. ABDOMEN: There is a small amount of gas within the nondistended stomach. There is a small amount of gas within the nondistended ascending and sigmoid colon. There is gas within a few nondistended small bowel loops within the right abdomen. Overall the bowel gas pattern has a nonobstructive appearance. There is no free air. There are no abnormal mass shadows. There are pelvic phleboliths. There are bilateral tubal ligation clips. There is no osseous abnormality. IMPRESSION: There is no acute cardiopulmonary process. Nonobstructive bowel gas pattern. Electronically authenticated by: NAN VILLAGRAN Date: 2023-02-20 05:12 Normal [facility] BioFire Not Detectedon 11-18 BioFire Not Detected Not detected Normal Not Detecte [facility] Comment on above: Result Comment: This is a duplicate RP2.1 COVID (PCR) result to be used for statistical tracking purpose only. PERFORMED BY: [address] [address] PATHOLOGIST [employer] AR[employer] ZORAN MARINO M.D. Performed By: #### R FARHAD PANEL UPP., BIOFIRECOVNOTDE #### [address] [address] [facility] COVID-19 Detected/Not Detect edOrdered By: Jacki Baird on 11-18-2022 SARS-CoV-2 (COVID-19) RNA ART+non-probe Ql (Nph) Not detected Not Detecte [facility] Comment on above: This is a duplicate RP2.1 COVID (PCR) result to be used for statistical tracking purpose only. No Panel InformationOrdered By: Jacki Baird on 11-18-2022 Respiratory Panel (PCR) [facility] Respiratory (Upper) Panel, P CRon 11-18-2022 Respiratory (Upper) Panel, PCR Reason for Exam Viral URI Reason for Exam: Viral URI Adenovirus Not detected Bordetella parapertussis Not detected Chlamydia pneumoniae Not detected Coronavirus 229E Not detected Coronavirus HKU1 Not detected Coronavirus NL63 Not detected Coronavirus OC43 Not detected Influenza A Not detected Influenza B Not detected Human Metapneumovirus Not detected Mycoplasma pneumoniae Not detected Parainfluenza Virus 1 Not detected Parainfluenza Virus 2 Not detected Parainfluenza Virus 3 Not detected Parainfluenza Virus 4 Not detected Bordetella pertussis-ptxP Not detected Human Rhino/Enterovirus Not detected Resp. Syncytial Virus Not detected COVID-19 Detected/Not Detected Not detected PERFORMED BY: [facility] [address] [place] [address] PATHOLOGIST [employer] ZORAN MARINO M.D. Normal [facility] Comment on above: Performed By: #### R FARHAD PANEL UPP., BIOFIRECOVNOTDE #### [facility] [address] [id number] [facility] XR Shoulder Complete Right*o n 06-06-2022 XR Shoulder Complete Right* COMPARISON: none FINDINGS: There is no lytic or sclerotic bone lesion. There is no fracture. The humeral head is located. The AC joint is within normal limits. There are no radiopaque foreign bodies. The visualized portions of the chest wall are unremarkable. IMPRESSION: Negative Study. Report reported and signed by SRIKANTH GONZALEZ on 06/06/2022 1411 [facility] Specialist Varicella IgG Antibodyon Varicella IgG Antibody 1308 Immune >165 [employer] [facility] [employer] Other Varicella IgG Antibody 1308 Normal Immune >165 [facility] Comment on above: Result Comment: Nega tive <135 Equivocal 135 - 165 Positive >165 A positive result generally indicates exposure to the pathogen or administration of specific immunoglobulins, but it is not indication of active infection or stage of disease. Performed at: - [facility] [id number] Consulting Group Analyst: Angel Lorenzana PhD, Phone: [phone] PERFORMED BY: [place] [address] PATHOLOGIST [employer] ZORAN MARINO M.D. Performed By: #### V ZIGG #### [facility] , Complete Blood Count Auto Di ffon 05-20-2022 Basophils (Bld) [#/Vol] 0.0 10*3/uL Normal 0.0-0.2 [facility] Comment on above: Order Comment: Reaso n for Exam Ulcerative pancolitis with complication Result Comment: PERF ORMED BY: [place] [address] PATHOLOGIST [employer] ZORAN MARINO M.D. Performed By: #### C BC, CMP #### [facility] [address] [place] [address] Basophils/100 WBC (Bld) 0.2 % Normal . [facility] Comment on above: Order Comment: Reaso n for Exam Ulcerative pancolitis with complication Performed By: #### C BC, CMP #### [facility] [address] [place] [address] [place] Eosinophils (Bld) [#/Vol] 0.2 10*3/uL Normal 0.0-0.45 [facility] Comment on above: Order Comment: Reaso n for Exam Ulcerative pancolitis with complication Performed By: #### C BC, CMP #### [place] [address] [place] Eosinophils/100 WBC (Bld) 2.9 % Normal . [facility] Comment on above: Order Comment: Reaso n for Exam Ulcerative pancolitis with complication Performed By: #### C BC, CMP #### [address] Erythrocyte distribution width (RBC) [Ratio] 12.8 % Normal 11.9-15.3 [facility] Comment on above: Order Comment: Reaso n for Exam Ulcerative pancolitis with complication Performed By: #### C BC, CMP #### [address] Hematocrit (Bld) [Volume fraction] 39.3 % Normal 34.0-46.4 [facility] Comment on above: Order Comment: Reaso n for Exam Ulcerative pancolitis with complication Performed By: #### C BC, CMP #### [address] Hemoglobin (Bld) [Mass/Vol] 13.3 g/dL Normal 11.8-15.4 [facility] Comment on above: Order Comment: Reaso n for Exam Ulcerative pancolitis with complication Performed By: #### C BC, CMP #### [place] [address] [place] Lymphocytes (Bld) [#/Vol] 1.6 10*3/uL Normal 1.00-4.8 [facility] Comment on above: Order Comment: Reaso n for Exam Ulcerative pancolitis with complication Performed By: #### C BC, CMP #### [place] [address] [place] Lymphocytes/100 WBC (Bld) 20.3 % Normal . [facility] Comment on above: Order Comment: Reaso n for Exam Ulcerative pancolitis with complication Performed By: #### C BC, CMP #### [address] MCH (RBC) [Entitic mass] 30.5 pg Normal 24.7-34.3 [facility] Comment on above: Order Comment: Reaso n for Exam Ulcerative pancolitis with complication Performed By: #### C BC, CMP #### [address] MCV (RBC) [Entitic vol] 90.1 fL Normal 80-100 [facility] Comment on above: Order Comment: Reaso n for Exam Ulcerative pancolitis with complication Performed By: #### C BC, CMP #### [address] Mean Corpuscular HGB Conc 33.9 g/dL Normal 32.0-35.0 [facility] Comment on above: Order Comment: Reaso n for Exam Ulcerative pancolitis with complication Performed By: #### C BC, CMP #### [address] Monocytes (Bld) [#/Vol] 0.4 10*3/uL Normal 0.0-0.8 [facility] Comment on above: Order Comment: Reaso n for Exam Ulcerative pancolitis with complication Performed By: #### C BC, CMP #### [place] [address] [place] Monocytes/100 WBC (Bld) 4.9 % Normal . [facility] Comment on above: Order Comment: Reaso n for Exam Ulcerative pancolitis with complication Performed By: #### C BC, CMP #### [address] Neutrophils (Bld) [#/Vol] 5.6 10*3/uL Normal 1.8-7.7 [facility] Comment on above: Order Comment: Reaso n for Exam Ulcerative pancolitis with complication Performed By: #### C BC, CMP #### [facility] [address] [place] [address] [place] Neutrophils/100 WBC (Bld) 71.7 % Normal . [facility] Comment on above: Order Comment: Reaso n for Exam Ulcerative pancolitis with complication Performed By: #### C BC, CMP #### [facility] [address] [place] [address] [place] Nucleated RBC/100 WBC (Bld) [Ratio] 0.1 % Normal 0-0.5 [facility] Comment on above: Order Comment: Reaso n for Exam Ulcerative pancolitis with complication Performed By: #### C BC, CMP #### [facility] [address] [place] [address] [place] Platelet mean volume (Bld) [Entitic vol] 6.7 fL Normal 6.3-10.7 [facility] Comment on above: Order Comment: Reaso n for Exam Ulcerative pancolitis with complication Performed By: #### C BC, CMP #### [facility] [address] [place] [address] [place] Platelets (Bld) [#/Vol] 282 10*3/uL Normal 150-450 [employer] Other Comment on above: Order Comment: Reaso n for Exam Ulcerative pancolitis with complication Performed By: #### C BC, CMP #### [facility] [address] [place] [address] [place] RBC (Bld) [#/Vol] 4.36 10*6/uL Normal 3.60-5.00 [facility] Comment on above: Order Comment: Reaso n for Exam Ulcerative pancolitis with complication Performed By: #### C BC, CMP #### [facility] [address] [place] [address] [place] WBC (Bld) [#/Vol] 7.9 10*3/uL Normal 4.5-11.0 [facility] Comment on above: Order Comment: Reaso n for Exam Ulcerative pancolitis with complication Performed By: #### C BC, CMP #### [facility] [address] [place] [address] [place] Basophils (Bld) [#/Vol] 0.468782213 10*3/uL Normal 0.0-0.2 10*3/uL [employer] Other Basophils/100 WBC (Bld) 0.200 % . % [employer] Other Eosinophils (Bld) [#/Vol] 0.241799975 10*3/uL Normal 0.0-0.45 10*3/uL [employer] Other Eosinophils/100 WBC (Bld) 2.900 % . % [employer] Other Erythrocyte distribution width (RBC) [Ratio] 12.800 % Normal 11.9-15.3 % [employer] Other Hematocrit (Bld) [Volume fraction] 39.300 % Normal 34.0-46.4 % [employer] Other Hemoglobin (Bld) [Mass/Vol] 13.933979 g/dL Normal 11.8-15.4 g/dL [employer] Other Lymphocytes (Bld) [#/Vol] 1.704262148 10*3/uL Normal 1.00-4.8 10*3/uL [employer] Other Lymphocytes/100 WBC (Bld) 20.300 % . % [employer] Other MCH (RBC) [Entitic mass] 30.5000 pg Normal 24.7-34.3 pg [employer] Other MCV (RBC) [Entitic vol] 90.1000 fL Normal 80-100 fL [employer] Other Monocytes (Bld) [#/Vol] 0.558937740 10*3/uL Normal 0.0-0.8 10*3/uL [employer] Other Monocytes/100 WBC (Bld) 4.900 % . % [employer] Other Neutrophils (Bld) [#/Vol] 5.361310221 10*3/uL Normal 1.8-7.7 10*3/uL [employer] Other Neutrophils/100 WBC (Bld) 71.700 % . % [employer] Other Platelet mean volume (Bld) [Entitic vol] 6.7000 fL Normal 6.3-10.7 fL [employer] Other RBC (Bld) [#/Vol] 4.1010244787 10*6/uL Normal 3. 60-5.00 10*6/uL [employer] Other WBC (Bld) [#/Vol] 7.552851978 10*3/uL Normal 3.8 -11.6 10*3/uL [employer] Other Complete Blood Count Auto Diff 7.9 10*3/uL Normal 4.5-11.0 10*3/uL [employer] Other Complete Blood Count Auto Diff 33.9 g/dL Normal 32.0-35.0 g/dL [employer] Other Complete Blood Count Auto Diff 0.1 % Normal 0-0.5 % [employer] Other Comprehensive Metabolic Pane [facility] 05-20-2022 Albumin [Mass/Vol] 3.8 g/dL Normal 3.2-5.5 [facility] Comment on above: Order Comment: Reaso n for Exam Ulcerative pancolitis with complication Performed By: #### C BC, CMP #### [facility] [address] [place] [id number] [place] Albumin/Globulin [Mass ratio] 1.3 {ratio} Normal [employer] Other Comment on above: Order Comment: Reaso n for Exam Ulcerative pancolitis with complication Performed By: #### C BC, CMP #### [facility] [address] [place] [address] [place] ALP [Catalytic activity/Vol] 47 U/L Normal 32-92 [employer] Other Comment on above: Order Comment: Reaso n for Exam Ulcerative pancolitis with complication Result Comment: PERF ORMED BY: [place] [address] PATHOLOGIST [employer] ZORAN MARINO M.D. Performed By: #### C BC, CMP #### [facility] [address] [place] [address] [place] ALT [Catalytic activity/Vol] 16 U/L Normal 10-60 [facility] [employer] Other Comment on above: Order Comment: Reaso n for Exam Ulcerative pancolitis with complication Performed By: #### C BC, CMP #### [facility] [address] [place] [address] AST [Catalytic activity/Vol] 17 U/L Normal 10-42 [facility] [employer] Other Comment on above: Order Comment: Reaso n for Exam Ulcerative pancolitis with complication Performed By: #### C BC, CMP #### [facility] [address] [place] [address] [place] Bilirubin [Mass/Vol] 0.6 mg/dL Normal 0.3-1.2 [facility] Comment on above: Order Comment: Reaso n for Exam Ulcerative pancolitis with complication Performed By: #### C BC, CMP #### [facility] [address] [place] [address] [place] Calcium [Mass/Vol] 9.1 mg/dL Normal 8.2-10.2 [facility] Comment on above: Order Comment: Reaso n for Exam Ulcerative pancolitis with complication Performed By: #### C BC, CMP #### [facility] [address] [place] [address] [place] Chloride [Moles/Vol] 105 mmol/L Normal 95-114 [facility] [employer] Other Comment on above: Order Comment: Reaso n for Exam Ulcerative pancolitis with complication Performed By: #### C BC, CMP #### [facility] [address] [place] [address] [place] CO2 [Moles/Vol] 24.1 mmol/L Normal 22.0-30.0 [facility] Comment on above: Order Comment: Reaso n for Exam Ulcerative pancolitis with complication Performed By: #### C BC, CMP #### [facility] [address] Creatinine [Mass/Vol] 0.90 mg/dL Normal 0.44-1.03 [facility] Comment on above: Order Comment: Reaso n for Exam Ulcerative pancolitis with complication Performed By: #### C BC, CMP #### [facility] [address] Estimated GFR ( Nisa > 60 [facility] Comment on above: Order Comment: Reaso n for Exam Ulcerative pancolitis with complication Result Comment: GFR estimated reference range: According to KDOQI guidelines, <60 ml/min/1.73m2 is sufficient to diagnose a patient with chronic kidney disease. Performed By: #### C BC, CMP #### [facility] [address] Estimated GFR (Non- Am > 60 [facility] Comment on above: Order Comment: Reaso n for Exam Ulcerative pancolitis with complication Performed By: #### C BC, CMP #### [facility] [address] Globulin (S) [Mass/Vol] 2.9 g/dL [facility] Comment on above: Order Comment: Reaso n for Exam Ulcerative pancolitis with complication Performed By: #### C BC, CMP #### [place] [address] [place] Glucose [Mass/Vol] 107 mg/dL High 70-100 [employer] Other Comment on above: Order Comment: Reaso n for Exam Ulcerative pancolitis with complication Result Comment: [place] om Glucose Reference Range is dependent on time and content of last meal. Glucose of more than 200 mg/dL in a nonstressed, ambulatory subject supports the diagnosis of Diabetes Mellitus. ADA recommended reference range Performed By: #### C BC, CMP #### [facility] [address] [place] [id number] [facility] Potassium [Moles/Vol] 3.7 mmol/L Normal 3.5-5.1 [facility] Comment on above: Order Comment: Reaso n for Exam Ulcerative pancolitis with complication Performed By: #### C BC, CMP #### [facility] [address] [place] [address] [facility] Protein [Mass/Vol] 6.7 g/dL Normal 6.1-7.9 [facility] Comment on above: Order Comment: Reaso n for Exam Ulcerative pancolitis with complication Performed By: #### C BC, CMP #### [facility] [address] [place] [id number] [facility] Sodium [Moles/Vol] 138 mmol/L Normal 136-146 [employer] Other Comment on above: Order Comment: Reaso n for Exam Ulcerative pancolitis with complication Performed By: #### C BC, CMP #### [facility] [address] [place] [address] [place] Urea nitrogen [Mass/Vol] 10 mg/dL Normal 9-23 [employer] Other Comment on above: Order Comment: Reaso n for Exam Ulcerative pancolitis with complication Performed By: #### C BC, CMP #### [facility] [address] [place] [id number] [facility] Albumin [Mass/Vol] 3.049163 g/dL Normal 3.2-5.5 g/dL [facility] [employer] Other Bilirubin [Mass/Vol] 0.0140042 mg/dL Normal 0.3- 1.2 mg/dL [employer] Other Calcium [Mass/Vol] 9.5097117 mg/dL Normal 8.2-10 .2 mg/dL [employer] Other CO2 [Moles/Vol] 24.97029803 mmol/L Normal 22.0-3 0.0 mmol/L [employer] Other Creatinine [Mass/Vol] 0.64337447 mg/dL Normal 0. 44-1.03 mg/dL [place] [employer] Other Potassium [Moles/Vol] 3.50519367 mmol/L Normal 3 .5-5.1 mmol/L [place] [employer] Other Protein [Mass/Vol] 6.865691 g/dL Normal 6.1-7.9 g/dL [facility] [employer] Other Comprehensive Metabolic Panel > 60 [employer] Other Comprehensive Metabolic Panel 2.9 g/dL [employer] Other ECG 12 lead ECGon 05-20-2022 ECG 12 lead ECG [place] [id number] Electrocardiograph Report Signed Patient: Angela Elam MR#: [id number] : 1980 Acct:[id number] Age/Sex: 41 / F ADM Date: 05/20/22 Loc: Room: Type: [facility] Attending Dr: Bill Yusuf DO Ordering Provider: Bill Yusuf Jr, DO Date of Service: 05/20/22 ECG/ECG 12 lead ECG: High risk medication use Copies to: Test Reason : Blood Pressure : / mmHG Vent. Rate : 079 BPM Atrial Rate : 079 BPM P-R Int : 136 ms QRS Dur : 082 ms QT Int : 370 ms P-R-T Axes : 072 050 049 degrees QTc Int : 424 ms Normal sinus rhythm Normal ECG When compared with ECG of 08-SEP-2021 18:59, Vent. rate has decreased BY 42 BPM Confirmed by DAREN CANALES DO ([id number]) on 05/20/2022 4:00:35 PM Referred By: Electronically Signed By:DAREN CANALES DO Transcribed By: MUS Signed By Daren Canales DO 05/20 1600 Normal [facility] ECG 12 lead ECG [facility] [employer] Other ECG 12 lead ECG [facility] [place] [facility] [employer] Other ECG [address] [facility] [employer] Other ECG [place] [address] N [facility] [employer] Other ECG 12 lead ECG Electrocardiograph Report [employer] Other ECG 12 lead ECG Signed [employer] Other ECG 12 lead ECG Patient: Angela Elam MR#: [id number] [employer] Other ECG 12 lead ECG 1280 [employer] Other ECG 12 lead ECG : 1980 Acct:[id number] [employer] Other ECG 12 lead ECG Age/Sex: 41 / F ADM Date: 05/20/22 [employer] Other ECG 12 lead ECG Loc: Room: Type: [facility] [employer] Other ECG [address]: Bill Yusuf DO [employer] Other ECG 12 lead ECG Ordering Provider: Bill Yusuf Jr DO [employer] Other ECG 12 lead ECG Date of Service: 05/20/22 [employer] Other ECG 12 lead ECG ECG/ECG 12 lead ECG: High risk medication use [employer] Other ECG 12 lead ECG Copies to: [employer] Other ECG 12 lead ECG Test Reason : [employer] Other ECG 12 lead ECG Blood Pressure : / mmHG [employer] Other ECG 12 lead ECG Vent. Rate : 079 BPM Atrial Rate : 079 BPM [employer] Other ECG 12 lead ECG P-R Int : 136 ms QRS Dur : 082 ms [employer] Other ECG 12 lead ECG QT Int : 370 ms P-R- T Axes : 072 050 049 degrees [employer] Other ECG 12 lead ECG QTc Int : 424 ms Nor [employer] Other ECG 12 lead ECG Normal sinus rhythm [employer] Other ECG 12 lead ECG Normal ECG [employer] Other ECG 12 lead ECG When compared with E CG of 08-SEP-2021 18:59, [employer] Other ECG 12 lead ECG Vent. rate has decreased BY 42 BPM [employer] Other ECG 12 lead ECG Confirmed by DAREN CANALES DO ([id number]) on 05/20/2022 4:00:35 PM [employer] Other ECG 12 lead ECG Referred By: Electronically Signed By:DAREN CANALES DO [employer] Other ECG 12 lead ECG Transcribed By: IRINEO [employer] Other ECG 12 lead ECG Signed By Daren Canales DO 05/20 [employer] Other ECG 12 lead ECG /22 1600 [employer] Other Complete Blood Counton 04-18 Erythrocyte distribution width (RBC) [Ratio] 13.8 % Normal 11.0-15.0 [facility] [employer] Comment on above: Order Comment: [facility] Testing performed at: [facility], [facility], [address] [place] [address], [address] [place] [address], [place], [address], Home Security Alarm Installer: Jame Sawyer MD [facility] Collection Date/Time: [id number] [facility] Results Received Date/Time: [facility] Reported Date/Time: Performed By: #### C BC, TSH reflex FT4, LIPD, CMP #### [facility] Default [address] [place] [address] Hematocrit (Bld) [Volume fraction] 40.4 % Normal 35.0-45.0 [facility] [employer] Comment on above: Order Comment: [facility] performed at: [employer], [employer] [facility], [address] [place] [address], [address] [place] [address], [address] [place] [address], Home Security Alarm Installer: Jame Sawyer MD [facility] Date/Time: [facility] Results Received Date/Time: [facility] Reported Date/Time: Performed By: #### C BC, TSH reflex FT4, LIPD, CMP #### [facility] [address] [place] [address] Hemoglobin (Bld) [Mass/Vol] 13.4 g/dL Normal 11.7-15.5 [facility] [employer] Comment on above: Order Comment: [facility] performed at: [employer], [employer] [facility], [address] [place] [address], [address] [place] [address], [address] [place] [address], Home Security Alarm Installer: Jame Sawyer MD [facility] Date/Time: [facility] Results Received Date/Time: [facility] Reported Date/Time: Performed By: #### C BC, TSH reflex FT4, LIPD, CMP #### [facility] [address] [place] [address] MCH (RBC) [Entitic mass] 29.7 pg Normal 27.0-33.0 [facility] [employer] Comment on above: Order Comment: [facility] performed at: Twelve [facility], [address] [place] [address], [address] [place] [address], [address] [place] [address], Home Security Alarm Installer: Jame Sawyer MD [facility] Collection Date/Time: [facility] Results Received Date/Time: [facility] Reported Date/Time: Performed By: #### C BC, TSH reflex FT4, LIPD, CMP #### [facility] [address] [place] [address] MCHC (RBC) [Mass/Vol] 33.2 g/dL Normal 32.0-36.0 [place] [employer] Comment on above: Order Comment: [facility] performed at: [employer], [employer] [facility], [address] [place] [address], [address] [place] [address], [address] [place] [address], Home Security Alarm Installer: Jame Sawyer MD [facility] Date/Time: [facility] Results Received Date/Time: [facility] Reported Date/Time: Performed By: #### C BC, TSH reflex FT4, LIPD, CMP #### [facility] [address] [place] [address] MCV (RBC) [Entitic vol] 89.6 fL Normal 80.0-100.0 [facility] [employer] Comment on above: Order Comment: [facility] performed at: [employer], [employer] [facility], [address] [place] [address], [address] [place] [address], [address] [place] [address], Home Security Alarm Installer: Jame Sawyer MD [facility] Date/Time: [facility] Results Received Date/Time: [facility] Reported Date/Time: Performed By: #### C BC, TSH reflex FT4, LIPD, CMP #### [facility] [address] [place] [address] Platelet mean volume (Bld) [Entitic vol] 9.0 fL Normal 7.5-12.5 [facility] [employer] Comment on above: Order Comment: [facility] Testing performed at: Twelve [facility], [address] [place] [address], [address] [place] [address], [address] [place] [address], Home Security Alarm Installer: Jame Sawyer MD [facility] Collection Date/Time: [facility] Results Received Date/Time: [facility] Reported Date/Time: Performed By: #### C BC, TSH reflex FT4, LIPD, CMP #### [facility] [address] [place] [address] Platelets (Bld) [#/Vol] 286 10*3/uL Normal 140-400 [facility] [employer] Comment on above: Order Comment: [facility] Testing performed at: Twelve [facility], [address] [place] [address], [address] [place] [address], [address] [place] [address], Home Security Alarm Installer: Jame Sawyer MD [facility] Date/Time: [facility] Results Received Date/Time: [facility] Reported Date/Time: Performed By: #### C BC, TSH reflex FT4, LIPD, CMP #### [facility] [address] [place] [address] RBC (Bld) [#/Vol] 4.51 10*6/uL Normal 3.80-5.10 [place] [employer] Comment on above: Order Comment: [facility] Testing performed at: [facility], [employer] [facility], [address] [place] [address], [address] [place] [address], Home Security Alarm Installer: Jame Sawyer MD [facility] Date/Time: [facility] Results Received Date/Time: [facility] Reported Date/Time: Performed By: #### C BC, TSH reflex FT4, LIPD, CMP #### [facility] [address] [place] [address] WBC (Bld) [#/Vol] 6.4 10*3/uL Normal 3.8-10.8 [place] [employer] Comment on above: Order Comment: [facility] performed at: [place], [employer] [facility], [address] [place] [address], [address] [place] [address], Home Security Alarm Installer: Jame Saweyr MD [facility] Date/Time: [facility] Results Received Date/Time: [facility] Reported Date/Time: Performed By: #### C BC, TSH reflex FT4, LIPD, CMP #### [facility] [address] [place] [address] Comprehensive Metabolic Pane [facility] 04-18-2022 Albumin [Mass/Vol] 4.3 g/dL Normal 3.6-5.1 [place]u [place] [employer] Comment on above: Order Comment: [facility] performed at: [employer], [employer] [facility], [address] [place] [address], [address] [place] [address], [address] [place] [address], Home Security Alarm Installer: Jame Sawyer MD [facility] Date/Time: [facility] Results Received Date/Time: [facility] Reported Date/Time: Performed By: #### C BC, TSH reflex FT4, LIPD, CMP #### [facility] [address] [place] [address] Albumin/Globulin [Mass ratio] 1.7 {ratio} Normal 1.0-2.5 [facility] [employer] Comment on above: Order Comment: [facility] performed at: [employer], [employer] [facility], [address] [place] [address], [address] [place] [address], [address] [place] [address], Home Security Alarm Installer: Jame Sawyer MD [facility] Date/Time: [facility] Results Received Date/Time: [facility] Reported Date/Time: Performed By: #### C BC, TSH reflex FT4, LIPD, CMP #### [facility] [address] [place] [address] ALP [Catalytic activity/Vol] 46 U/L Normal 31-125 [place] [employer] Comment on above: Order Comment: [facility] performed at: [employer], [employer] [facility], [address] [place] [address], [address] [place] [address], [address] [place] [address], Home Security Alarm Installer: Jame Sawyer MD [facility] Date/Time: [facility] Results Received Date/Time: [facility] Reported Date/Time: Performed By: #### C BC, TSH reflex FT4, LIPD, CMP #### [facility] [address] [place] [address] ALT [Catalytic activity/Vol] 11 U/L Normal 6-29 [facility] [employer] Comment on above: Order Comment: [facility] performed at: [employer], [employer] [facility], [address] [place] [address], [address] [place] [address], [address] [place] [address], Home Security Alarm Installer: Jame Sawyer MD [facility] Date/Time: [facility] Results Received Date/Time: [facility] Reported Date/Time: Performed By: #### C BC, TSH reflex FT4, LIPD, CMP #### [facility] [address] [place] [address] Anion gap [Moles/Vol] 17 mmol/L Normal 12-20 [facility] Comment on above: Order Comment: [facility] performed at: [employer], [employer] [facility], [address] [place] [address], [address] [place] [address], [address] [place] [address], Home Security Alarm Installer: Jame Sawyer MD [facility] Date/Time: [facility] Results Received Date/Time: [facility] Reported Date/Time: Result Comment: Effe ctive 12/06/2019 reference range changed. Performed By: #### C BC, TSH reflex FT4, LIPD, CMP #### [facility] [address] [place] [address] AST [Catalytic activity/Vol] 11 U/L Normal 10-30 [facility] Comment on above: Order Comment: [facility] Testing performed at: Twelve [facility], [address] [place] [address], [address] [place] [address], [address] [place] [address], Home Security Alarm Installer: Jame Sawyer MD [facility] Date/Time: [facility] Results Received Date/Time: [facility] Reported Date/Time: Performed By: #### C BC, TSH reflex FT4, LIPD, CMP #### [facility] [address] [place] [address] Bilirubin [Mass/Vol] 0.5 mg/dL Normal 0.2-1.2 [facility] Comment on above: Order Comment: [facility] Testing performed at: Twelve [facility], [address] [place] [address], [address] [place] [address], [address] [place] [address], Home Security Alarm Installer: Jame Sawyer MD [facility] Date/Time: [facility] Results Received Date/Time: [facility] Reported Date/Time: Performed By: #### C BC, TSH reflex FT4, LIPD, CMP #### [facility] Default [address] [place] [address] BUN/CREA 17 NOT APPLICABLE Normal 6-22 [place] n [place] [employer] Comment on above: Order Comment: [facility] Testing performed at: [employer] [employer] [facility], [address], [address] [place] [address], [address] [place] [address], [employer] Installer: Jame Sawyer MD [facility] Date/Time: [facility] Results Received Date/Time: [facility] Reported Date/Time: Performed By: #### C BC, TSH reflex FT4, LIPD, CMP #### [facility] Default [address] [place] [address] Calcium [Mass/Vol] 9.1 mg/dL Normal 8.6-10.2 Eliu [place] [employer] Comment on above: Order Comment: [facility] Testing performed at: [facility], [address], [address] [place] [address], [address] [place] [address], [employer] Installer: Jame Sawyer MD [facility] Date/Time: [facility] Results Received Date/Time: [facility] Reported Date/Time: Performed By: #### C BC, TSH reflex FT4, LIPD, CMP #### [facility] Default [address] [place] [address] Chloride [Moles/Vol] 104 mmol/L Normal 98-110 [facility] [place] [employer] Comment on above: Order Comment: [facility] performed at: [employer] [employer] [facility], [address], [address] [place] [address], [phone], [employer] Al[employer] Installer: Jame Sawyer MD [facility] Date/Time: [facility] Results Received Date/Time: [facility] Reported Date/Time: Performed By: #### C BC, TSH reflex FT4, LIPD, CMP #### [facility] Default [address] [place] [address] CO2 [Moles/Vol] 22 mmol/L Normal 20-32 [facility] Comment on above: Order Comment: [facility] performed at: [employer] [employer] [facility], [address] [place] [address], [address] [place] [address], [address] [place] [address], [employer] Installer: Jame Sawyer MD [facility] Date/Time: [facility] Results Received Date/Time: [facility] Reported Date/Time: Performed By: #### C BC, TSH reflex FT4, LIPD, CMP #### [facility] Default [address] [place] [address] Creatinine [Mass/Vol] 0.75 mg/dL Normal 0.50-1.10 [facility] Specialist Comment on above: Order Comment: [facility] performed at: [employer] [employer] [facility], [address] [place] [address], [address] [place] [address], [address] [place] [address], [employer] Al[employer] Installer: Jame Sawyer MD [facility] Date/Time: [facility] Results Received Date/Time: [facility] Reported Date/Time: Performed By: #### C BC, TSH reflex FT4, LIPD, CMP #### [facility] Default [address] [place] [address] eGFRAA ([facility]) 115 mL/min/1.73m2 Normal > OR = 60 [facility] Specialist Comment on above: Order Comment: [facility] performed at: [facility], [address] [place] [address], [address] [place] [address], [address] [place] [address], [employer] Al[employer] Installer: Jame Sawyer MD [facility] Date/Time: [facility] Results Received Date/Time: [facility] Reported Date/Time: Performed By: #### C BC, TSH reflex FT4, LIPD, CMP #### [facility] Default [address] [place] [address] eGFRNAA ([facility]) 99 mL/min/1.73m2 Normal > OR = 60 [facility] Specialist Comment on above: Order Comment: [facility] performed at: [employer], [employer] [facility], [address] [place] [address], [address] [place] [address], [phone], Home Security Alarm Installer: Jame Sawyer MD [facility] Date/Time: [facility] Results Received Date/Time: [facility] Reported Date/Time: Performed By: #### C BC, TSH reflex FT4, LIPD, CMP #### [facility] Default [address] [place] [address] Globulin (S) [Mass/Vol] 2.5 g/dL Normal 1.9-3.7 [facility] [employer] Comment on above: Order Comment: [facility] performed at: [place], [employer] [facility], [address] [place] [address], [address] [place] [address], [phone], Home Security Alarm Installer: Jame Sawyer MD [facility] Date/Time: [facility] Results Received Date/Time: [facility] Reported Date/Time: Performed By: #### C BC, TSH reflex FT4, LIPD, CMP #### [facility] [address] [place] [address] Glucose [Mass/Vol] 85 mg/dL Normal 65-99 [facility] Specialist Comment on above: Order Comment: [facility] performed at: [place] [employer] [facility], [address] [place] [address], [address] [place] [address], [phone], Home Security Alarm Installer: Jame Sawyer MD [facility] Date/Time: [facility] Results Received Date/Time: [facility] Reported Date/Time: Result Comment: Fasting reference interval Performed By: #### C BC, TSH reflex FT4, LIPD, CMP #### [facility] Default [address] [place] [address] Potassium [Moles/Vol] 4.1 mmol/L Normal 3.5-5.3 [facility] [employer] Tender Comment on above: Order Comment: [facility] performed at: [employer] [employer] [facility], [address] [place] [address], [address] [place] [address], [phone], Home Security Alarm Installer: Jame Sawyer MD [facility] Date/Time: [facility] Results Received Date/Time: [facility] Reported Date/Time: Performed By: #### C BC, TSH reflex FT4, LIPD, CMP #### [facility] Default [address] [place] [address] Protein [Mass/Vol] 6.8 g/dL Normal 6.1-8.1 Eliu rn [place] [employer] Comment on above: Order Comment: [facility] performed at: [employer] [employer] [facility], [address] [place] [address], [address] [place] [address], [address] [place] [address], Home Security Al[employer] Installer: Jame Sawyer MD [facility] Date/Time: [facility] Results Received Date/Time: [facility] Reported Date/Time: Performed By: #### C BC, TSH reflex FT4, LIPD, CMP #### [facility] Default [address] [place] [address] Sodium [Moles/Vol] 139 mmol/L Normal 135-146 Eliu rn [place] [employer] Comment on above: Order Comment: [facility] performed at: [employer] [employer] [facility], [address] [place] [address], [address] [place] [address], [phone], Home Security Alarm Installer: Jame Sawyer MD [facility] Date/Time: [facility] Results Received Date/Time: [facility] Reported Date/Time: Performed By: #### C BC, TSH reflex FT4, LIPD, CMP #### [facility] Default [address] [place] [address] Urea nitrogen [Mass/Vol] 13 mg/dL Normal 7-25 [facility] [employer]ender Comment on above: Order Comment: [facility] performed at: [employer] [employer] [facility], [address] [place] [address], [address] [place] [address], [phone], Home Security Alarm Installer: Jame Sawyer MD [facility] Date/Time: [facility] Results Received Date/Time: [facility] Reported Date/Time: Performed By: #### C BC, TSH reflex FT4, LIPD, CMP #### [facility] Default [address] [place] [address] Lipid Panelon 04-18-2022 Cholesterol [Mass/Vol] 204 mg/dL High <200 [facility] [employer] Tender Comment on above: Order Comment: [facility] performed at: [employer] [employer] [facility], [address] [place] [address], [address] [place] [address], [address] [place] [address], [employer] Al[employer] Installer: Jame Sawyer MD [facility] Date/Time: [facility] Results Received Date/Time: [facility] Reported Date/Time: Performed By: #### C BC, TSH reflex FT4, LIPD, CMP #### [facility] Default [address] [place] [address] Cholesterol in HDL [Mass/Vol] 66 mg/dL Normal > OR = 50 [facility] [employer] T[employer] Comment on above: Order Comment: [facility] performed at: [facility], [address] [place] [address], [address] [place] [address], [address] [place] [address], Home Security Alarm Installer: Jame Sawyer MD [facility] Date/Time: [facility] Results Received Date/Time: [facility] Reported Date/Time: Performed By: #### C BC, TSH reflex FT4, LIPD, CMP #### [facility] Default [address] [place] [address] Cholesterol in LDL [Mass/Vol] 115 mg/dL High [facility] [employer] T[employer] Comment on above: Order Comment: [facility] performed at: [facility], [address] [place] [address], [address] [place] [address], [phone], [employer] Al[employer] Installer: Jame Sawyer MD [facility] Date/Time: [facility] Results Received Date/Time: [facility] Reported Date/Time: Result Comment: Refe rence range: <100 Desirable range <100 mg/dL for primary prevention; <70 mg/dL for patients with CHD or diabetic patients with > or = 2 CHD risk factors. LDL-C is now calculated using the Ben calculation, which is a validated novel method providing better accuracy than the Friedewald equation in the estimation of LDL-C. Berto SESAY et al. DEVONTE. 2013;310(19): 3532-5648 (http://education.DesignGooroo.Balanced/faq/ZYV595) Performed By: #### C BC, TSH reflex FT4, LIPD, CMP #### [facility] Default [address] [place] [address] NON HDL CHOLESTEROL 138 mg/dL (calc) High <130 [facility] [employer] Tender Comment on above: Order Comment: [facility] performed at: [employer] [employer] [facility], [address] [place] [address], [address] [place] [address], [phone], Home Security Alarm Installer: Jame Sawyer MD [facility] Date/Time: [facility] Results Received Date/Time: [facility] Reported Date/Time: Result Comment: For patients with diabetes plus 1 major ASCVD risk factor, treating to a non-HDL-C goal of <100 mg/dL (LDL-C of <70 mg/dL) is considered a therapeutic option. Performed By: #### C BC, TSH reflex FT4, LIPD, CMP #### [facility] Default [address] [place] [address] Triglyceride [Mass/Vol] 123 mg/dL Normal <150 [facility] [employer] Tender Comment on above: Order Comment: [facility] performed at: [employer] [employer] [facility], [address] [place] [address], [address] [place] [address], [phone], [employer] Alarm Installer: Jame Sawyer MD [facility] Date/Time: [facility] Results Received Date/Time: [facility] Reported Date/Time: Performed By: #### C BC, TSH reflex FT4, LIPD, CMP #### [facility] Default [address] [place] [address] TSH w/ Reflex to Free T4on 0 04-18-2022 TSH W/REFLEX TO FT4 2.39 mIU/L Normal [facility] [employer] Tender Comment on above: Order Comment: [facility] Testing performed at: [facility], [address], [address] [facility], [place], [address], Home Security Alarm Installer: Jame Sawyer MD [facility] Date/Time: [id number] [facility] Results Received Date/Time: [facility] Reported Date/Time: Result Comment: Refe rence Range > or = 20 Years 0.40-4.50 Ranges First trimester 0.26-2.66 Second trimester 0.55-2.73 Third trimester 0.43-2.91 Performed By: #### C BC, TSH reflex FT4, LIPD, CMP #### [facility] Default [address] [place] [address] Complete Blood Count Auto Di ffon 09-20-2021 Basophils (Bld) [#/Vol] 0.0 10*3/uL 0.0-0.2 [employer] Other Basophils/100 WBC (Bld) 0.3 % . [employer] Other Eosinophils (Bld) [#/Vol] 0.4 10*3/uL 0.0-0.45 [employer] Other Eosinophils/100 WBC (Bld) 6.4 % . [employer] Other Erythrocyte distribution width (RBC) [Ratio] 17.6 % 11.9-15.3 [employer] Other Hematocrit (Bld) [Volume fraction] 25.3 % 34.0-46.4 [employer] Other Hemoglobin (Bld) [Mass/Vol] 7.6 g/dL 11.8-15.4 [employer] Other Lymphocytes (Bld) [#/Vol] 1.9 10*3/uL 1.00-4.8 [employer] Other Lymphocytes/100 WBC (Bld) 28.8 % . [employer] Other MCH (RBC) [Entitic mass] 23.5 pg 24.7-34.3 [employer] Other MCH (RBC) [Entitic mass] 30.0 pg 32.0-35.0 [employer] Other MCV (RBC) [Entitic vol] 78.4 fL 80-100 [employer] Other Monocytes (Bld) [#/Vol] 0.6 10*3/uL 0.0-0.8 [employer] Other Monocytes/100 WBC (Bld) 9.7 % . [employer] Other Neutrophils (Bld) [#/Vol] 3.6 10*3/uL 1.8-7.7 [employer] Other Neutrophils/100 WBC (Bld) 54.8 % . [employer] Other Platelet mean volume (Bld) [Entitic vol] 6.2 fL 6.3-10.7 [employer] Other Platelets (Bld) [#/Vol] 504 10*3/uL 150-450 [employer] Other RBC (Bld) [#/Vol] 3.22 10*6/uL 3.60-5.00 [employer] Other WBC (Bld) [#/Vol] 6.5 10*3/uL 3.8-11.6 [employer] Other Complete Blood Count Auto Diff 6.5 4.5-11.0 [employer] Other Complete Blood Count Auto Diff 0.1 0-0.5 [employer] Other Comprehensive Metabolic Pane linda 09-20-2021 Albumin [Mass/Vol] 2.8 g/dL 3.2-5.5 [facility] [employer] Other Albumin/Globulin [Mass ratio] 0.8 {ratio} [facility] [employer] Other ALP [Catalytic activity/Vol] 43 U/L 32-92 [facility] [employer] Other ALT [Catalytic activity/Vol] 16 U/L 10-60 [facility] [employer] Other AST [Catalytic activity/Vol] 16 U/L 10-42 [facility] [employer] Other Bilirubin [Mass/Vol] 0.2 mg/dL 0.3-1.2 [facility] [employer] Other Calcium [Mass/Vol] 8.5 mg/dL 8.2-10.2 [facility] [employer] Other Chloride [Moles/Vol] 106 mmol/L 95-114 [facility] [employer] Other CO2 [Moles/Vol] 23.6 mmol/L 22.0-30.0 [facility] Other Creatinine [Mass/Vol] 0.80 mg/dL 0.44-1.03 [facility] [employer] Other Glucose [Mass/Vol] 86 mg/dL 70-100 [facility] [employer] Other Potassium [Moles/Vol] 3.7 mmol/L 3.5-5.1 [facility] [employer] Other Protein [Mass/Vol] 6.2 g/dL 6.1-7.9 [facility] [employer] Other Sodium [Moles/Vol] 140 mmol/L 136-146 [facility] [employer] Other Urea nitrogen [Mass/Vol] 9 mg/dL 9-23 [facility] [employer] Other Comprehensive Metabolic Panel > 60 [facility] [employer] Other Comprehensive Metabolic Panel 3.4 [facility] [employer] Other Hepatitis B Core Antibodyon 09-20-2021 Hepatitis B Core Antibody Negative Negative [employer] Other Vital Signs Date Time Vital Sign Value Performing Clinician Facility 01-07-2025 11:29-0500 Body height 170.2 cm Arlin Hastings PA Work Phone: [facility] 01-07-2025 11:29-0500 Body mass index (BMI) [Ratio] 34.14 kg/m2 Arlin Hastings PA Work Phone: [facility] 01-07-2025 11:29-0500 Body temperature 98.1 [degF] Arlin Hastings PA Work Phone: [facility] 01-07-2025 11:29-0500 Body weight 98.88 kg Arlin Hastings PA Work Phone: [facility] 01-07-2025 11:29-0500 Diastolic blood pressure 82 mm[Hg] Arlin Hastings PA Work Phone: [facility] 01-07-2025 11:29-0500 Heart rate 104 /min Arlin Hastings PA Work Phone: [facility] 01-07-2025 11:29-0500 SaO2% (BldA) [Mass fraction] 99 % Arlin Hastings PA Work Phone: [facility] 01-07-2025 11:29-0500 Systolic blood pressure 122 mm[Hg] Arlin Hastings PA Work Phone: [facility] 12-17-2024 11:35-0500 Diastolic blood pressure 86 mm[Hg] Mak Martinez MD Work Phone: [facility] 12-17-2024 11:35-0500 Heart rate 83 /min Mak Martinez MD Work Phone: [facility] 12-17-2024 11:35-0500 Respiratory rate 16 /min Mak Martinez MD Work Phone: [facility] 12-17-2024 11:35-0500 SaO2% (BldA) [Mass fraction] 100 % Mak Martinez MD Work Phone: [facility] 12-17-2024 11:35-0500 Systolic blood pressure 152 mm[Hg] Mak Martinez MD Work Phone: [facility] 12-17-2024 10:01-0500 Body height 165.1 cm Mak Martinez MD Work Phone: [facility] 12-17-2024 10:01-0500 Body mass index (BMI) [Ratio] 34.28 kg/m2 Mak Martinez MD Work Phone: [facility] 12-17-2024 10:01-0500 Body weight 93.44 kg Mak Martinez MD Work Phone: [facility] 11-05-2024 14:22-0500 Body temperature 97.7 [degF] Chair Matthew Work Phone: [facility] 11-05-2024 14:22-0500 Diastolic blood pressure 70 mm[Hg] Chair Matthew Work Phone: [facility] 11-05-2024 14:22-0500 Heart rate 97 /min Chair Comerío Work Phone: [facility] 11-05-2024 14:22-0500 Respiratory rate 16 /min Chair Comerío Work Phone: [facility] 11-05-2024 14:22-0500 SaO2% (BldA) [Mass fraction] 99 % Chair Comerío Work Phone: [facility] 11-05-2024 14:22-0500 Systolic blood pressure 118 mm[Hg] Chair Comerío Work Phone: [facility] 10-22-2024 16:05-0500 Body temperature 98.1 [degF] Chair Comerío Work Phone: [facility] 10-22-2024 16:05-0500 Diastolic blood pressure 89 mm[Hg] Chair Comerío Work Phone: [facility] 10-22-2024 16:05-0500 Heart rate 94 /min Chair Comerío Work Phone: [facility] 10-22-2024 16:05-0500 Respiratory rate 18 /min Chair Comerío Work Phone: [facility] 10-22-2024 16:05-0500 SaO2% (BldA) [Mass fraction] 95 % Chair Comerío Work Phone: [facility] 10-22-2024 16:05-0500 Systolic blood pressure 121 mm[Hg] Chair Comerío Work Phone: [facility] 10-11-2024 16:00-0500 Body temperature 97.59 [degF] Chair Comerío Work Phone: [facility] 10-11-2024 16:00-0500 Diastolic blood pressure 83 mm[Hg] Chair Matthew Work Phone: [facility] 10-11-2024 16:00-0500 Heart rate 98 /min Chair Matthew Work Phone: [facility] 10-11-2024 16:00-0500 Respiratory rate 16 /min Chair Matthew Work Phone: [facility] 10-11-2024 16:00-0500 SaO2% (BldA) [Mass fraction] 98 % Chair Comerío Work Phone: [facility] 10-11-2024 16:00-0500 Systolic blood pressure 121 mm[Hg] Chair Comerío Work Phone: [facility] 10-05-2024 14:35-0500 Diastolic blood pressure 81 mm[Hg] Chair Comerío Work Phone: [facility] 10-05-2024 14:35-0500 Heart rate 95 /min Chair Comerío Work Phone: [facility] 10-05-2024 14:35-0500 Respiratory rate 18 /min Chair Comerío Work Phone: [facility] 10-05-2024 14:35-0500 SaO2% (BldA) [Mass fraction] 98 % Chair Comerío Work Phone: [facility] 10-05-2024 14:35-0500 Systolic blood pressure 116 mm[Hg] Chair Comerío Work Phone: [facility] 10-01-2024 15:19-0400 Diastolic blood pressure 97 mm[Hg] Chair Comerío Work Phone: [facility] 10-01-2024 15:19-0400 Heart rate 103 /min Chair Comerío Work Phone: [facility] 10-01-2024 15:19-0400 Respiratory rate 18 /min Chair Comerío Work Phone: [facility] 10-01-2024 15:19-0400 SaO2% (BldA) [Mass fraction] 97 % Chair Comerío Work Phone: [facility] 10-01-2024 15:19-0400 Systolic blood pressure 141 mm[Hg] Chair Matthew Work Phone: [facility] 09-24-2024 15:40-0400 Body temperature 98.01 [degF] Chair Comerío Work Phone: [facility] 09-24-2024 15:40-0400 Diastolic blood pressure 76 mm[Hg] Chair Matthew Work Phone: [facility] 09-24-2024 15:40-0400 Heart rate 101 /min Chair Matthew Work Phone: [facility] 09-24-2024 15:40-0400 Respiratory rate 18 /min Chair Matthew Work Phone: [facility] 09-24-2024 15:40-0400 SaO2% (BldA) [Mass fraction] 98 % Chair Comerío Work Phone: [facility] 09-24-2024 15:40-0400 Systolic blood pressure 119 mm[Hg] Chair Matthew Work Phone: [facility] 09-17-2024 14:26-0400 Body height 167.6 cm Dilma Darrian PA-C Work Phone: [facility] 09-17-2024 14:26-0400 Body mass index (BMI) [Ratio] 33.61 kg/m2 Dilma Darrian PA-C Work Phone: [facility] 09-17-2024 14:26-0400 Body temperature 97.7 [degF] Dilma Darrian PA-C Work Phone: [facility] 09-17-2024 14:26-0400 Body weight 94.4 kg Dilma Darrian PA-C Work Phone: [facility] 09-17-2024 14:26-0400 Diastolic blood pressure 88 mm[Hg] Dilma Darrian PA-C Work Phone: [facility] 09-17-2024 14:26-0400 Heart rate 114 /min Dilma Darrian PA-C Work Phone: [facility] 09-17-2024 14:26-0400 Respiratory rate 16 /min Dilma Darrian PA-C Work Phone: [facility] 09-17-2024 14:26-0400 SaO2% (BldA) [Mass fraction] 99 % Dilma Darrian PA-C Work Phone: [facility] 09-17-2024 14:26-0400 Systolic blood pressure 131 mm[Hg] Dilma Darrian PA-C Work Phone: [facility] 08-20-2024 13:04-0400 Body height 170.2 cm Beck Piyushlibby Work Phone: [facility] 08-20-2024 13:04-0400 Body mass index (BMI) [Ratio] 32.26 kg/m2 Beck Tee DO Work Phone: [facility] [employer] 08-20-2024 13:04-0400 Body temperature 98.29 [degF] Beck Tee DO Work Phone: [facility] 08-20-2024 13:04-0400 Body weight 93.44 kg Beck Kaftan DO Work Phone: [facility] 08-20-2024 13:04-0400 Diastolic blood pressure 74 mm[Hg] Beck Tee DO Work Phone: [facility] 08-20-2024 13:04-0400 Heart rate 105 /min Beck Tee DO Work Phone: [facility] 08-20-2024 13:04-0400 SaO2% (BldA) [Mass fraction] 97 % Beck Tee DO Work Phone: [facility] 08-20-2024 13:04-0400 Systolic blood pressure 128 mm[Hg] Beck Tee DO Work Phone: [facility] 04-24-2024 13:35-0400 Body height 167.64 cm [facility] 04-24-2024 13:35-0400 Body mass index (BMI) [Ratio] 33.3 kg/m2 [facility] 04-24-2024 13:35-0400 Body temperature 90.9 [degF] [facility] 04-24-2024 13:35-0400 Body weight 93.49 kg [facility] 04-24-2024 13:35-0400 Diastolic blood pressure 84 mm[Hg] [facility] 04-24-2024 13:35-0400 Heart rate 100 /min [facility] 04-24-2024 13:35-0400 Respiratory rate 16 /min [facility] 04-24-2024 13:35-0400 SaO2% (BldA) [Mass fraction] 98 % [facility] 04-24-2024 13:35-0400 Systolic blood pressure 124 mm[Hg] [facility] 01-08-2024 14:59-0500 Body height 167.6 cm Sonia Jc MD Work Phone: [facility] 01-08-2024 14:59-0500 Body weight 94 kg Sonia Jc MD Work Phone: [facility] 06-02-2023 14:50-0400 Body temperature 98.01 [degF] Chair Castro Work Phone: [facility] 06-02-2023 14:50-0400 Diastolic blood pressure 85 mm[Hg] Chair Matthew Work Phone: [facility] 06-02-2023 14:50-0400 Heart rate 76 /min Chair Comerío Work Phone: [facility] 06-02-2023 14:50-0400 Respiratory rate 16 /min Chair Comerío Work Phone: [facility] 06-02-2023 14:50-0400 SaO2% (BldA) [Mass fraction] 97 % Chair Comerío Work Phone: [facility] 06-02-2023 14:50-0400 Systolic blood pressure 123 mm[Hg] Chair Matthew Work Phone: [facility] 06-02-2023 14:15-0400 Body weight 95.39 kg Chair Matthew Work Phone: [facility] 05-05-2023 14:07-0400 Body temperature 98.01 [degF] Chair Matthew Work Phone: [facility] 05-05-2023 14:07-0400 Body weight 94.6 kg Chair Comerío Work Phone: [facility] 05-05-2023 14:07-0400 Diastolic blood pressure 91 mm[Hg] Chair Comerío Work Phone: [facility] 05-05-2023 14:07-0400 Heart rate 93 /min Chair Comerío Work Phone: [facility] 05-05-2023 14:07-0400 Respiratory rate 16 /min Chair Comerío Work Phone: [facility] 05-05-2023 14:07-0400 SaO2% (BldA) [Mass fraction] 98 % Chair Comerío Work Phone: [facility] 05-05-2023 14:07-0400 Systolic blood pressure 144 mm[Hg] Chair Matthew Work Phone: [facility] 04-07-2023 10:03-0400 Body height 167.6 cm Mak Martinez MD Work Phone: [facility] 04-07-2023 10:03-0400 Body weight 90.27 kg Mak Martinez MD Work Phone: [facility] 04-07-2023 10:03-0400 Diastolic blood pressure 72 mm[Hg] Mak Martinez MD Work Phone: [facility] 04-07-2023 10:03-0400 Heart rate 79 /min Mak Martinez MD Work Phone: [facility] 04-07-2023 10:03-0400 Respiratory rate 16 /min Mak Martinez MD Work Phone: [facility] 04-07-2023 10:03-0400 Systolic blood pressure 107 mm[Hg] Mak Martinez MD Work Phone: [facility] 09-25-2021 16:30-0400 Body height 167.64 cm Bill Yusuf Other [employer] Other 09-25-2021 16:30-0400 Body mass index (BMI) [Ratio] 30.18 kg/m2 Bill Yusuf Other [employer] Other 09-25-2021 16:30-0400 Body weight 84.82 kg Bill Yusuf Other [employer] Other 09-11-2021 15:45-0400 Body height 167.64 cm Bill Yusuf Other [employer] Other 09-11-2021 15:45-0400 Body mass index (BMI) [Ratio] 30.18 kg/m2 Bill Yusuf Other [employer] Other 09-11-2021 15:45-0400 Body weight 84.82 kg Bill Yusuf Other [employer] Other Encounters Encounter Date Encounter Type Care Provider Facility Start: 01-14-2025 End: 01-14-2025 Refill Beck eTe DO Work Phone: [facility] Comment on above: Anxiety Start: 01-07-2025 End: 01-07-2025 Bamboo flowsheet Arlin Hastings PA Work Phone: [facility] Start: 01-07-2025 End: 01-07-2025 Bamboo flowsheet Arlin Hastings PA Work Phone: [facility] Start: 01-07-2025 End: 01-07-2025 ambulatory ARLIN HASTINGS Not Available Start: 01-07-2025 End: 01-07-2025 Office outpatient visit 15 minutes Arlin Hastings PA Work Phone: [facility] Comment on above: Anxiety (Primary Dx) ; Psychophysiological insomnia Start: 12-30-2024 End: 12-30-2024 Refill Corbin Piña LPN Work Phone: [facility] Comment on above: Anxiety Start: 12-29-2024 End: 12-29-2024 Refill Beck Broussard Johnathanbob DO Work Phone: [facility] Comment on above: Migraine without aur a and without status migrainosus, not intractable (CMS/HCC); Cervicalgia Start: 12-22-2024 End: 12-22-2024 ambulatory BECK TEE JR Facility:[facility] Start: 12-17-2024 End: 12-17-2024 ambulatory MAK MRATINEZ Facility:[facility] Start: 12-17-2024 End: 12-17-2024 Subsequent hospital visit by physician Mak Martinez MD Work Phone: Ambulatory Surgery Comment on above: 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, 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] Start: 12-16-2024 End: 12-16-2024 Admission to same day surgery center Mak Martinez MD Work Phone: Ambulatory Surgery Start: 12-16-2024 End: 12-16-2024 ambulatory Mak Martinez MD Work Phone: Ambulatory Surgery Start: 12-12-2024 End: 12-13-2024 Refill Beck Tee DO Work Phone: [facility] 230 Comment on above: Anxiety Start: 12-10-2024 End: 12-10-2024 [facility] Start: 12-06-2024 End: 12-13-2024 Telephone encounter Dilma Montes PA-C Work Phone: Hematology/Oncology Comment on above: Lab Orders Start: 12-03-2024 End: 12-06-2024 ambulatory Chair Brenda Castro Work Phone: Hematology/Oncology Comment on above: Ulcerative pancoliti s without complication (HCC) (Primary Dx); FPC (current) use of immunomodulator SkiriI Start: 11-16-2024 End: 11-16-2024 Refill Beck Tee DO Work Phone: [facility] 426 Comment on above: Anxiety Start: 11-12-2024 End: 11-12-2024 ambulatory Orlando Torres MD Work Phone: Infectious Disease Comment on above: CMV colitis (HCC) Start: 11-12-2024 End: 11-12-2024 Telemedicine consultation with patient Orlando Torres MD Work Phone: Infectious Disease Start: 11-05-2024 End: 11-08-2024 ambulatory Chair Brenda Castro Work Phone: Hematology/Oncology Comment on above: Ulcerative pancoliti s without complication (HCC) (Primary Dx) Start: 11-04-2024 End: 11-04-2024 ambulatory BECK TEE Facility:[facility] Start: 11-03-2024 End: 11-03-2024 Telephone encounter Orlando Torres MD Work Phone: Infectious Disease Start: 11-02-2024 End: 11-04-2024 ambulatory Mak Martinez MD Work Phone: Gastroenterology Comment on above: TB test Start: 11-02-2024 End: 11-04-2024 E-mail encounter from caregiver Mak Martinez MD Work Phone: Gastroenterology Start: 11-01-2024 End: 11-01-2024 ambulatory BECK RUVALCABA JOHNATHANBOB KAY Facility:[facility] Start: 10-29-2024 End: 11-01-2024 Refill Beck Tee DO Work Phone: [facility] [phone] Comment on above: Anxiety Start: 10-22-2024 End: 10-24-2024 ambulatory Chair 19 [place] Work Phone: Hematology/Oncology Comment on above: Iron deficiency anem ia due to chronic blood loss (Primary Dx); Ulcerative pancolitis without complication (HCC) Start: 10-20-2024 End: 10-20-2024 Refill Beck Broussard Johnathanbob DO Work Phone: [facility] 230 Comment on above: Anxiety Start: 10-11-2024 End: 10-11-2024 ambulatory Chair 19 [place] Work Phone: Hematology/Oncology Comment on above: Iron deficiency anem ia due to chronic blood loss (Primary Dx); Ulcerative pancolitis without complication (HCC) Start: 10-09-2024 End: 10-09-2024 ambulatory MAK MARTINEZ Facility:[facility] Start: 10-08-2024 End: 10-08-2024 Refill Beck Tee DO Work Phone: [facility] 844 Comment on above: Anxiety Start: 10-07-2024 End: 10-08-2024 ambulatory Mak Martinez MD Work Phone: Gastroenterology Comment on above: Severe leg and foot pain Start: 10-05-2024 End: 10-06-2024 ambulatory Chair 10 [place] Work Phone: Hematology/Oncology Comment on above: Ulcerative pancoliti s without complication (HCC) (Primary Dx); Iron deficiency anemia due to chronic blood loss Start: 10-01-2024 End: 10-01-2024 ambulatory Chair 19 [place] Work Phone: Hematology/Oncology Comment on above: Iron deficiency anem ia due to chronic blood loss (Primary Dx); Ulcerative pancolitis without complication (HCC) Start: 10-01-2024 End: 10-21-2024 Telephone encounter Pascual Healy RN Hematology/Oncology Comment on above: Patient Update Follow Up; Results Start: 09-30-2024 End: 09-30-2024 Evaluation and management of inpatient BECK TEE JR Facility:[facility] Start: 09-29-2024 End: 10-01-2024 Evaluation and management of inpatient YURIY PACK Facility:[facility] Start: 09-28-2024 End: 09-28-2024 ambulatory Mak Martinez MD Work Phone: Gastroenterology Comment on above: I m in a flare Start: 09-27-2024 End: 09-27-2024 Telephone encounter Mak Martinez MD Work Phone: Gastroenterology Comment on above: Patient Update; Insu rishi Authorization Anxiety Start: 09-24-2024 End: 09-27-2024 ambulatory Chair Mina Castro Work Phone: Hematology/Oncology Comment on above: Iron deficiency anem ia due to chronic blood loss (Primary Dx); Ulcerative pancolitis without complication (HCC) Start: 09-21-2024 End: 09-21-2024 Telephone encounter Deric Inman RN Hematology/Oncology Comment on above: Results Start: 09-17-2024 End: 09-17-2024 Office outpatient new 30 minutes Dilma Montes PA-C Work Phone: Hematology/Oncology Comment on above: Iron deficiency anem ia due to chronic blood loss (Primary Dx); Malaise and fatigue Start: 09-17-2024 End: 11-02-2024 Orders Only Mak Martinez MD Work Phone: Gastroenterology [facility] Comment on above: Ulcerative pancoliti s with complication (HCC) (Primary Dx) Start: 09-15-2024 End: 09-15-2024 Chart abstracting Dilma Montes PA-C Work Phone: Hematology/Oncology Comment on above: Anxiety Start: 09-13-2024 End: 09-13-2024 Telephone encounter Mak Martinez MD Work Phone: [facility] Comment on above: Insurance Authorizat ion (Peer to Peer , , VENITA MILLER, [id number] DANIEL , MAK MARTINEZ ) Start: 09-10-2024 End: 09-10-2024 ambulatory Mak Martinez MD Work Phone: Gastroenterology Comment on above: Daniel Start: 09-06-2024 End: 09-06-2024 ambulatory Yuli James [facility] Start: 09-06-2024 End: 09-09-2024 Orders Only Beck Tee DO Work Phone: [facility] External Department Unsolicited Start: 09-06-2024 End: 09-06-2024 Patient encounter procedure Yuli James [facility] Comment on above: SPP Inflammatory Con ditions - Treatment Referral (Daniel CORREA); Insurance Authorization (PA submission pending) Start: 09-03-2024 End: 09-03-2024 Orders Only Mak Martinez MD Work Phone: Ambulatory Surgery Start: 09-01-2024 End: 09-17-2024 ambulatory Mak Martinez MD Work Phone: Gastroenterology Comment on above: Labs Start: 08-31-2024 End: 08-31-2024 Refill Corbin Piña LPN Work Phone: [facility] Comment on above: Anxiety Start: 08-20-2024 End: 08-20-2024 Bamboo flowsheet Beck Tee DO Work Phone: [facility] Start: 08-20-2024 End: 08-20-2024 Bamboo flowsheet Beck Tee DO Work Phone: [facility] Start: 08-20-2024 End: 08-20-2024 ambulatory BECK TEE Not Available Start: 08-20-2024 End: 08-20-2024 Office outpatient visit 25 minutes Beck Tee DO Work Phone: [facility] 230 Comment on above: Anxiety (Primary Dx) ; Crohn's disease, unspecified, without complications (CMS/HCC); Other migraine without status migrainosus, not intractable (CMS/HCC); Iron deficiency anemia due to chronic blood loss; Current moderate episode of major depressive disorder without prior episode (HCC) (CMS/HCC); Frontal sinusitis, unspecified chronicity; Diarrhea of infectious origin Start: 08-03-2024 End: 08-03-2024 Refill Beck Tee DO [facility] Phone[facility] Comment on above: Migraine without aur a and without status migrainosus, not intractable (CMS/HCC); Cervicalgia; Anxiety Start: 05-21-2024 End: 05-21-2024 ambulatory Mak Martinez MD Work Phone: Gastroenterology Comment on above: Ulcerative pancoliti s without complication (HCC) (Primary Dx); FPC current use of systemic steroids Start: 05-21-2024 End: 05-21-2024 Telemedicine consultation with patient Mak Martinez MD Work Phone: Gastroenterology Start: 05-20-2024 End: 05-20-2024 ambulatory MAK MARTINEZ Facility:[facility] Start: 04-24-2024 End: 04-24-2024 ambulatory [facility] Work Phone: Start: 04-24-2024 End: 04-24-2024 Patient encounter procedure [facility] Jacek Work Phone: Start: 04-06-2024 Refill Mak Martinez MD Work Phone: Gastroenterology Comment on above: Refill Request; Foll ow Up Start: 03-22-2024 Orders Only Mak Martinez MD Work Phone: Gastroenterology [facility] Start: 03-10-2024 End: 03-10-2024 ambulatory BECK TEE Not Available Start: 02-09-2024 Refill Mak Martinez MD Work Phone: Gastroenterology Comment on above: Refill Request Start: 01-21-2024 E-mail encounter megan m caregiver [facility] Start: 01-21-2024 Follow-up encounter [facility] Provider Col orectal Surgery Comment on above: follow up Start: 01-19-2024 End: 01-19-2024 ambulatory MATHIEUToyin NOLENO Not Available Start: 01-08-2024 End: 01-08-2024 ambulatory SONIA JC Facility:[facility] Start: 01-08-2024 End: 01-08-2024 Patient encounter procedure Sonia Jc MD Work Phone: Colorectal Surgery Comment on above: Ulcerative colitis w ith complication, unspecified location (HCC) (Primary Dx) Start: 12-04-2023 Telephone encounter Mak amin MD Work Phone: Gastroenterology [facility] Comment on above: Results Start: 09-26-2023 End: 09-26-2023 ambulatory Chair 16 [place] Work Phone: Hematology/Oncology Comment on above: Ulcerative pancoliti s with complication (HCC) (Primary Dx) Start: 06-02-2023 End: 06-02-2023 ambulatory Chair 13 [place] Work Phone: Hematology/Oncology Comment on above: Ulcerative pancoliti s with complication (HCC) (Primary Dx) Start: 05-05-2023 End: 05-05-2023 ambulatory Chair 14 [place] Work Phone: Hematology/Oncology Comment on above: Ulcerative pancoliti s with complication (HCC) (Primary Dx) Start: 04-08-2023 Telephone encounter Luiza DIAZ Comment on above: Follow Up (Gyant int eraction - F/U - attempt made. No answer.) Start: 04-07-2023 End: 04-07-2023 Patient encounter procedure Mak Martinez MD Work Phone: Gastroenterology Comment on above: Ulcerative pancoliti s with complication (HCC) (Primary Dx); Recurrent Clostridioides difficile infection Start: 02-20-2023 End: 02-20-[address] Bryce TEE Facility: Start: 11-18-2022 End: 11-18-2022 ambulatory Vanna Tee Facility:[facility] Start: 11-18-2022 End: 11-18-2022 ambulatory DO Vanna Tee Work Phone: [facility] Work Phone: Start: 11-18-2022 End: 11-18-2022 Patient encounter procedure DO Vanna Tee Work Phone: [facility] Start: 07-31-2022 End: 07-31-2022 ambulatory Yared Pisano Other [employer] Other Start: 07-31-2022 Telephone encounter Yared Wu Gastroenter[facility] Start: 07-29-2022 End: 07-29-2022 ambulatory Yared Pisano Other [employer] Other Start: 07-29-2022 Telephone encounter Yared Wu Gastroenterology Start: 06-18-2022 End: 06-18-2022 Patient encounter procedure Jaxon Guzmán MD Work Phone: Hematology/Oncology Comment on above: Appointment canceled by hospital (Primary Dx) Start: 06-18-2022 End: 06-18-2022 Telemedicine consultation with patient Jaxon Guzmán MD Work Phone: [place] Start: 06-18-2022 Telephone encounter [facility] Comment on above: Future Appointment Start: 06-12-2022 End: 06-12-2022 ambulatory Bill Yusuf Other [employer] Other Start: 06-12-2022 Telephone encounter Bill Yusuf [facility] Gastroenterology Start: 06-07-2022 Orders Only Jaxon pratt MD Work Phone: Hematology/Oncology Comment on above: Iron deficiency anem ia due to chronic blood loss (Primary Dx) Start: 05-31-2022 End: 05-31-2022 ambulatory Bill Madelin Other [employer] Other Start: 05-31-2022 Telephone encounter Bill Yusuf [facility] Start: 05-22-2022 End: 05-22-2022 ambulatory iBll Yusuf Facility:[facility] Start: 05-20-2022 End: 05-20-2022 ambulatory Vanna Jordon Tee Facility:[facility] Start: 05-07-2022 End: 05-07-2022 ambulatory Bill Yusuf Other [employer] Other Start: 05-07-2022 Telephone encounter Bill Yusuf [facility] Start: 03-27-2022 Telephone encounter Jaxon Guzmán MD Work Phone: Hematology/Oncology Comment on above: Lab Orders Start: 12-18-2021 Chart abstracting Jaxon langston MD Work Phone: Hematology/Oncology Start: 11-20-2021 End: 11-20-2021 ambulatory Bill Yusuf Other [employer] Other Start: 11-20-2021 Telephone encounter Bill Yusuf [facility] Start: 11-12-2021 End: 11-12-2021 ambulatory Bill Yusuf Other [employer] Other Start: 11-12-2021 Telephone encounter Bill Yusuf [facility] Start: 10-30-2021 End: 10-30-2021 ambulatory Bill Yusuf Other [employer] Other Start: 10-30-2021 Telephone encounter Bill Yusuf [facility] Start: 09-28-2021 Telephone encounter Bill Yusuf [facility] Start: 09-27-2021 Telephone encounter Bill Yusuf [facility] Start: 09-26-2021 Telephone encounter Bill Yusuf [facility] Start: 09-25-2021 Office outpatient vi sit 25 minutes Bill Steviebutch [facility] Start: 09-11-2021 End: 09-11-2021 ambulatory Bill Yusuf Other [employer] Other Start: 09-11-2021 Office outpatient vi sit 25 minutes Bill Yusuf [facility] Start: 09-11-2021 Telephone encounter Bill Steviebutch [facility] Gastroenterology Procedures Date Procedure Procedure Detail Performing Clinician Start: 12-17-2024 Sigmoidoscopy flx dx w/collj spec br/wa if pfrmd Mak Martinez MD Work Phone: Start: 12-03-2024 Blood count complete automated Mak Martinez MD Work Phone: Start: 12-03-2024 Hepatic function panel Mak Martinez MD Work Phone: Start: 09-06-2024 Toxin/antitoxin assa y tissue culture Beck Tee DO Work Phone: Start: 03-28-2022 Adult depression scr eening assessment Jaxon Guzmán MD Work Phone: Respiratory Panel (PCR) DO Bryce Tee Work Phone: Plan of Treatment Date Care Activity Detail Author Start: 02-18-2025 End: 02-18-2025 Patient encounter procedure 02/18/2025 11:20 AM EDT Office Visit [facility] [address] [place] [address] Arlin Hastings PA [address] [place] [address] [facility] Start: 01-24-2025 End: 01-24-2025 Patient encounter procedure 01/24/2025 4:00 PM EST Office Visit [facility] [address] [place] [address] Mathieu Proctor DO [address] [place], [place] [id number] [facility] Start: 12-31-2024 End: 12-31-2024 Patient encounter procedure 12/31/2024 2:40 PM EST Office Visit [facility] [address] [place] [address] Arlin Hastnigs PA [address] [place] [address] [facility] Start: 12-22-2024 End: 12-22-2024 ambulatory 12/22/2024 4:00 PM EST Specialty [facility]acy [facility] [place] [address] Pharmacist, [facility] [address] [place] [address] [address] [place] [id number] delayed Skyrizi OBI - [place] 12/31 [facility] Comment on above: delayed Skyrizi OBI - [place] 12/31 Start: 12-17-2024 End: 12-17-2024 Patient encounter procedure Ambulatory Surgery Comment on above: SIGMOIDOSCOPY Start: 12-10-2024 End: 12-10-2024 Follow-up encounter 12/10/2024 3:00 PM EST Visit (SP) Office Hematology/Oncology [address] [address] Dilma Montes PAQuynhC [address] [address] 12 week follow up Hematology/Oncology Comment on above: 12 week follow up Start: 12-10-2024 End: 12-10-2024 Patient encounter procedure 12/10/2024 2:45 PM EST Office Visit [facility] [address] [place] [address] 12 week follow up [facility] Comment on above: 12 week follow up Start: 12-10-2024 End: 12-10-2024 ambulatory [facility] Comment on above: Resub LUZ for Skyrizi OBI to [facility] onc e new TB test is complete- first OBI should be due around 1/24/25 Resub PA for Skyrizi OBI to [facility]- first OBI should be due around 12/24/24 Start: 12-06-2024 End: 03-07-2025 CBC W Auto Differential panel - Blood COMPLETE BLOOD COUNT AND DIFFERENTIAL Lab Routine Iron deficiency anemia due to chronic blood loss Expected: 12/06/2024, Expires: 03/07/2025 [facility] Comment on above: Expected: 12/06/2024, Expires: Start: 12-06-2024 End: 03-07-2025 Comprehensive metabolic 2000 panel - Serum or Plasma COMPREHENSIVE METABOLIC PANEL Lab Routine Iron deficiency anemia due to chronic blood loss Expected: 12/06/2024, Expires: 03/07/2025 [facility] Work Phone: Comment on above: Expected: 12/06/2024, Expires: Start: 12-06-2024 End: 03-07-2025 Ferritin [Mass/volume] in Serum or Plasma FERRITIN Lab Routine Iron deficiency anemia due to chronic blood loss Expected: 12/06/2024, Expires: 03/07/2025 [facility] Comment on above: Expected: 12/06/2024, Expires: Start: 12-06-2024 End: 03-07-2025 Iron and Iron binding capacity panel - Serum or Plasma IRON AND TIBC Lab Routine Iron deficiency anemia due to chronic blood loss Expected: 12/06/2024, Expires: 03/07/2025 [facility] Comment on above: Expected: 12/06/2024, Expires: Start: 12-03-2024 End: 12-03-2024 ambulatory 12/03/2024 2:00 PM [facility] Infusion Center Hematology/Oncology [address] [place] [address] DANIEL Hematology/Oncology Comment on above: DANIEL Start: 11-26-2024 End: 11-26-2024 ambulatory 11/26/2024 2:00 PM [facility] Infusion Center Hematology/Oncology [address] [place] [address] DANIEL Hematology/Oncology Comment on above: DANIEL Start: 11-17-2024 End: 11-17-2024 Anesthesia consultation 11/17/2024 11:59 PM EST Anesthesia Event Ambulatory Surgery [address] [place] [address] Josefina Seay APRN.CRNA [address] [place] [address] Ambulatory Surgery Start: 11-15-2024 End: 11-15-2024 Patient encounter procedure 11/15/2024 12:30 PM EST Office Visit Gastroenterology [facility] [address] [place] [address] [place] [address] [place] [address] review medication Gastroenterology [facility] Comment on above: review medication Start: 11-12-2024 End: 11-12-2024 ambulatory 11/12/2024 10:30 AM EST [facility] Infectious Disease [address] [place] [address] Orlando Torres MD [address] [place] [address] 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, 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] Infectious Disease Comment on above: 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, 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] Start: 11-12-2024 End: 11-12-2024 Patient encounter procedure 11/12/2024 10:30 AM EST Office Visit Infectious Disease [address] [place] [address] Orlando Torres MD [address] [place] [address] 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, 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] Infectious Disease Comment on above: 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, 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] Start: 11-09-2024 End: 11-09-2024 ambulatory 11/09/2024 9:00 AM EST Specialty [facility] [address] [place] [address] Pharmacist, [facility] [address] [place] [address] [place] [address] Resub PA for Skyrizi OBI to [facility] once new TB test is complete- first OBI should be due around 12/24/24 [facility] Comment on above: Resub PA for Skyrizi OBI to [facility] onc e new TB test is complete- first OBI should be due around 12/24/24 Start: 11-05-2024 End: 11-05-2024 ambulatory 11/05/2024 2:00 PM EST [facility] Hematology/Oncology [address] [place] [address] SKYRIZ Hematology/Oncology Comment on above: SKYRIZI Start: 11-04-2024 End: 11-04-2024 Patient encounter procedure 11/04/2024 3:45 PM EST Office Visit [facility] [address] [place] [address] lab [facility] Comment on above: lab Start: 11-04-2024 End: 11-04-2024 ambulatory 11/04/2024 9:30 AM EST Specialty [facility] [address] [place] [address] Drive [id number] [place] [address] Pharmacist, [facility] [address] [place] [address] [place] [address] Resub PA for Skyrizi OBI to [facility] once new TB test is complete- first OBI should be due around 12/24/24 [facility] Comment on above: Resub PA for Skyrizi OBI to [facility] onc e new TB test is complete- first OBI should be due around 12/24/24 Start: 11-02-2024 End: 02-01-2025 BLOOD TB SCREEN BLOOD TB SCREEN Lab Routine Ulcerative pancolitis with complication (HCC) Expected: 11/02/2024, Expires: 02/01/2025 [facility] Work Phone: Comment on above: Expected: 11/02/2024, Expires: Start: 11-01-2024 End: 11-01-2024 ambulatory 11/01/2024 9:30 AM EST Specialty Pharmacy [facility] [address] [place] [id number] [place] [address] Pharmacist, [facility] [address] [place] [address] [place] [address] Skyrizi-has plan is patient will be getting her infusions on 10/01, 10/29, and 11/26 - need to sub PA closer to last infusion date [facility] Comment on above: Skyrizi-has plan is patient will be gett ing her infusions on 10/01, 10/29, and 11/26 - need to sub PA closer to last infusion date Start: 10-29-2024 End: 10-29-2024 ambulatory 10/29/2024 2:00 PM EST Infusion Center Hematology/Oncology [address] [address] SKYRIZI Hematology/Oncology Comment on above: SKYRIZI Start: 10-22-2024 End: 10-22-2024 ambulatory 10/22/2024 3:30 PM EST Infusion Center Hematology/Oncology [address] [place] [address] [place] [address] IV VENOFER PUSH 200 mg Hematology/Oncology Comment on above: IV VENOFER PUSH 200 mg Start: 10-15-2024 End: 10-15-2024 ambulatory 10/15/2024 3:30 PM EST Infusion Center Hematology/Oncology [address] [place] [address] [place] [address] IV VENOFER PUSH 200 mg Hematology/Oncology Comment on above: IV VENOFER PUSH 200 mg Start: 10-14-2024 End: 10-14-2024 ambulatory 10/14/2024 9:00 AM EST Specialty [facility] [address] [place] [address] [place] [address] Pharmacist, [facility] [address] [place] [address] [place] [address] Isatuyrizi-has pt startd induction dosing? no, as of 09/16 [facility] Comment on above: Skyrizi-has pt startd induction dosing? no, as of 09/16 Start: 10-08-2024 End: 10-08-2024 ambulatory 10/08/2024 3:30 PM [facility] Infusion Center Hematology/Oncology [address] [address] IV VENOFER PUSH 200 mg Hematology/Oncology Comment on above: IV VENOFER PUSH 200 mg Start: 10-05-2024 End: 10-05-2024 ambulatory 10/05/2024 2:00 PM [facility] Infusion Center Hematology/Oncology [address] [address] SKYRIZI + VENOFER Hematology/Oncology Comment on above: SKYRIZI + VENOFER Start: 10-01-2024 End: 10-01-2024 ambulatory Hematology/Oncology Comment on above: IV VENOFER PUSH 200 mg IV VENOFER PUSH 200 mg +SKYRIZI Start: 09-28-2024 End: 12-28-2024 C reactive protein [Mass/volume] in Serum or Plasma C-REACTIVE PROTEIN Lab Routine Ulcerative pancolitis (HCC) Expected: 09/28/2024, Expires: 12/28/2024 [facility] Comment on above: Expected: 09/28/2024, Expires: Start: 09-28-2024 End: 12-28-2024 Calprotectin [Mass/mass] in Stool CALPROTECTIN,FECAL Lab Routine Ulcerative pancolitis (HCC) Expected: 09/28/2024, Expires: 12/28/2024 [facility] Comment on above: Expected: 09/28/2024, Expires: Start: 09-28-2024 End: 12-28-2024 CBC panel - Blood by Automated count COMPLETE BLOOD COUNT Lab Routine Ulcerative pancolitis (HCC) Expected: 09/28/2024, Expires: 12/28/2024 [facility] Work Phone: Comment on above: Expected: 09/28/2024, Expires: Start: 09-28-2024 End: 12-28-2024 Clostridioides difficile toxin genes [Presence] in Stool by ART with probe detection C. DIFFICILE PCR Lab Routine Ulcerative pancolitis (HCC) Expected: 09/28/2024, Expires: 12/28/2024 [facility] Comment on above: Expected: 09/28/2024, Expires: Start: 09-28-2024 End: 12-28-2024 Comprehensive metabolic 2000 panel - Serum or Plasma COMPREHENSIVE METABOLIC PANEL Lab Routine Ulcerative pancolitis (HCC) Expected: 09/28/2024, Expires: 12/28/2024 [facility] Comment on above: Expected: 09/28/2024, Expires: Start: 09-24-2024 End: 09-24-2024 ambulatory 09/24/2024 3:30 PM EDT Infusion Center Hematology/Oncology [address] [place] [address] [place] [address] IV VENOFER PUSH 200 mg Hematology/Oncology Comment on above: IV VENOFER PUSH 200 mg Start: 09-17-2024 End: 09-17-2024 Patient encounter procedure 09/17/2024 2:30 PM EDT Visit (SP) Office Hematology/Oncology [address] [place] [address] [place] [address] Dilma Montes, PA-C [address] [place] [address] [place] [address] Tee Hematology/Oncology Comment on above: New Referral by Dr. Tee Start: 09-17-2024 End: 12-17-2024 Cobalamin (Vitamin B12) [Mass/volume] in Serum or Plasma [facility] Comment on above: Expected: 09/17/2024, Expires: Start: 09-17-2024 End: 12-17-2024 Erythropoietin (EPO) [Units/volume] in Serum or Plasma [facility] Comment on above: Expected: 09/17/2024, Expires: Start: 09-17-2024 End: 12-17-2024 Ferritin [Mass/volume] in Serum or Plasma [facility] Comment on above: Expected: 09/17/2024, Expires: Start: 09-17-2024 End: 12-17-2024 Folate [Mass/volume] in Serum or Plasma [facility] Comment on above: Expected: 09/17/2024, Expires: Start: 09-17-2024 End: 12-17-2024 Haptoglobin [Mass/volume] in Serum or Plasma [facility] Comment on above: Expected: 09/17/2024, Expires: Start: 09-17-2024 End: 12-17-2024 Iron and Iron binding capacity panel - Serum or Plasma [facility] Work Phone: Comment on above: Expected: 09/17/2024, Expires: Start: 09-17-2024 End: 12-17-2024 MONOCLONAL PROTEIN, SERUM (BLOOD) [facility] Comment on above: Expected: 09/17/2024, Expires: Start: 09-17-2024 End: 12-17-2024 PROTEIN ELECTROPHORESIS SERUM W/INTERP [facility] Comment on above: Expected: 09/17/2024, Expires: Start: 09-17-2024 End: 12-17-2024 Thyrotropin [Units/volume] in Serum or Plasma [facility] Comment on above: Expected: 09/17/2024, Expires: Start: 09-16-2024 End: 09-16-2024 ambulatory 09/16/2024 9:00 AM EDT Specialty Pharmacy [facility] [address] [place] [id number] [place] [address] Pharmacist, [facility] [address] [place] [address] Skyrizi-has pt startd induction dosing? no, as of 09/09 [facility] Comment on above: Skyrizi-has pt startd induction dosing? no, as of 09/09 Start: 08-20-2024 End: 08-20-2025 CBC W Auto Differential panel - Blood CBC and differential Lab Routine Crohn's disease, unspecified, without complications (CMS/HCC) Anxiety Other migraine without status migrainosus, not intractable (CMS/HCC) Iron deficiency anemia due to chronic blood loss Diarrhea of infectious origin Expected: 08/20/2024 (Approximate), Expires: 08/20/2025 [facility] Comment on above: Expected: 08/20/2024 (Approximate), Expi res: 08/20/2025 Start: 08-20-2024 End: 08-20-2025 Clostridioides difficile toxin A+B tcdA+tcdB genes [Presence] in Stool by ART with probe detection [facility] Work Phone: Comment on above: Expected: 08/20/2024 (Approximate), Expi res: 08/20/2025 Start: 08-20-2024 End: 08-20-2025 Cobalamin (Vitamin B12) [Mass/volume] in Serum or Plasma Vitamin B12 Lab Routine Iron deficiency anemia due to chronic blood loss Expected: 08/20/2024 (Approximate), Expires: 08/20/2025 [facility] Comment on above: Expected: 08/20/2024 (Approximate), Expi res: 08/20/2025 Start: 08-20-2024 End: 08-20-2025 Comprehensive metabolic 2000 panel - Serum or Plasma Comprehensive metabolic panel Lab Routine Crohn's disease, unspecified, without complications (CMS/HCC) Anxiety Other migraine without status migrainosus, not intractable (CMS/HCC) Iron deficiency anemia due to chronic blood loss Diarrhea of infectious origin Expected: 08/20/2024 (Approximate), Expires: 08/20/2025 [facility] Comment on above: Expected: 08/20/2024 (Approximate), Expi res: 08/20/2025 Start: 08-20-2024 End: 08-20-2025 Ferritin [Mass/volume] in Serum or Plasma Ferritin Lab Routine Iron deficiency anemia due to chronic blood loss Expected: 08/20/2024 (Approximate), Expires: 08/20/2025 [facility] Comment on above: Expected: 08/20/2024 (Approximate), Expi res: 08/20/2025 Start: 08-20-2024 End: 08-20-2025 Folate [Mass/volume] in Serum or Plasma Folate Lab Routine Iron deficiency anemia due to chronic blood loss Expected: 08/20/2024 (Approximate), Expires: 08/20/2025 [facility] Comment on above: Expected: 08/20/2024 (Approximate), Expi res: 08/20/2025 Start: 08-20-2024 End: 08-20-2025 Iron and Iron binding capacity panel - Serum or Plasma Iron and TIBC Lab Routine Iron deficiency anemia due to chronic blood loss Expected: 08/20/2024 (Approximate), Expires: 08/20/2025 [facility] Comment on above: Expected: 08/20/2024 (Approximate), Expi res: 08/20/2025 Start: 08-01-2024 Covid-19 Vaccine () Covid-19 Vaccine () [facility] Start: 08-01-2024 Influenza vaccination [facility] Start: 05-21-2024 End: 08-20-2024 25-hydroxyvitamin D3 [Mass/volume] in Serum or Plasma VITAMIN D 25 HYDROXY Lab Routine Ulcerative pancolitis without complication (HCC) Expected: 05/21/2024, Expires: 08/20/2024 [facility] Comment on above: Expected: 05/21/2024, Expires: Start: 05-21-2024 End: 08-20-2024 BLOOD TB SCREEN BLOOD TB SCREEN Lab Routine Ulcerative pancolitis without complication (HCC) Expected: 05/21/2024, Expires: 08/20/2024 [facility] Comment on above: Expected: 05/21/2024, Expires: Start: 05-21-2024 End: 08-20-2024 C reactive protein [Mass/volume] in Serum or Plasma C-REACTIVE PROTEIN Lab Routine Ulcerative pancolitis without complication (HCC) Expected: 05/21/2024, Expires: 08/20/2024 [facility] Comment on above: Expected: 05/21/2024, Expires: Start: 05-21-2024 End: 08-20-2024 CBC panel - Blood by Automated count COMPLETE BLOOD COUNT Lab Routine Ulcerative pancolitis without complication (HCC) Expected: 05/21/2024, Expires: 08/20/2024 [facility] Work Phone: Comment on above: Expected: 05/21/2024, Expires: Start: 05-21-2024 End: 08-20-2024 Cobalamin (Vitamin B12) [Mass/volume] in Serum or Plasma VITAMIN B12 Lab Routine Ulcerative pancolitis without complication (HCC) Expected: 05/21/2024, Expires: 08/20/2024 [facility] Comment on above: Expected: 05/21/2024, Expires: Start: 05-21-2024 End: 08-20-2024 Comprehensive metabolic 2000 panel - Serum or Plasma COMPREHENSIVE METABOLIC PANEL Lab Routine Ulcerative pancolitis without complication (HCC) Expected: 05/21/2024, Expires: 08/20/2024 [facility] Comment on above: Expected: 05/21/2024, Expires: Start: 05-21-2024 End: 08-20-2024 Ferritin [Mass/volume] in Serum or Plasma FERRITIN Lab Routine Ulcerative pancolitis without complication (HCC) Expected: 05/21/2024, Expires: 08/20/2024 [facility] Comment on above: Expected: 05/21/2024, Expires: Start: 05-21-2024 End: 08-20-2024 Hepatitis B virus core Ab [Presence] in Serum HEPATITIS B CORE ANTIBODY TOTAL Lab Routine Ulcerative pancolitis without complication (HCC) Expected: 05/21/2024, Expires: 08/20/2024 [facility] Comment on above: Expected: 05/21/2024, Expires: Start: 05-21-2024 End: 08-20-2024 Iron and Iron binding capacity panel - Serum or Plasma IRON AND TIBC Lab Routine Ulcerative pancolitis without complication (HCC) Expected: 05/21/2024, Expires: 08/20/2024 [facility] Comment on above: Expected: 05/21/2024, Expires: Start: 01-26-2024 End: 04-26-2024 CBC W Auto Differential panel - Blood CBC + DIFF Lab Routine Ulcerative colitis with complication, unspecified location (HCC) Expected: 01/26/2024, Expires: 04/26/2024 [facility] Work Phone: Comment on above: Expected: 01/26/2024, Expires: Start: 01-26-2024 End: 04-26-2024 Comprehensive metabolic 2000 panel - Serum or Plasma COMP METABOLIC PANEL Lab Routine Ulcerative colitis with complication, unspecified location (HCC) Expected: 01/26/2024, Expires: 04/26/2024 [facility] Work Phone: Comment on above: Expected: 01/26/2024, Expires: 4 Start: 01-26-2024 End: 04-26-2024 TYPE AND SCREEN,30 DAY TYPE AND SCREEN,30 DAY Blood Bank Routine Ulcerative colitis with complication, unspecified location (HCC) Expected: 01/26/2024, Expires: 04/26/2024 [facility] Work Phone: Comment on above: Expected: 01/26/2024, Expires: 4 Start: 12-01-2023 Behavioral Health Screening Behavioral Health Screening [facility] Start: 12-01-2023 Depression Assessment Depression Assessment [facility] Start: 08-01-2023 Influenza vaccination [facility] Start: 03-28-2023 Adult depression screening assessment DEPRESSION SCREENING [facility] Start: 12-01-2022 DEPRESSION ASSESSMENT DEPRESSION ASSESSMENT [facility] Start: 08-01-2022 Influenza vaccination [facility] Start: 06-07-2022 End: 08-07-2022 CBC W Auto Differential panel - Blood CBC + DIFF Lab Routine Iron deficiency anemia due to chronic blood loss Expected: 06/07/2022, Expires: 08/07/2022 [facility] Work Phone: Comment on above: Expected: 06/07/2022, Expires: Start: 06-07-2022 End: 08-07-2022 Ferritin [Mass/volume] in Serum or Plasma FERRITIN BLD Lab Routine Iron deficiency anemia due to chronic blood loss Expected: 06/07/2022, Expires: 08/07/2022 [facility] Work Phone: Comment on above: Expected: 06/07/2022, Expires: 2 Start: 06-07-2022 End: 08-07-2022 Iron and Iron binding capacity panel - Serum or Plasma IRON + TIBC Lab Routine Iron deficiency anemia due to chronic blood loss Expected: 06/07/2022, Expires: 08/07/2022 [facility] Work Phone: Comment on above: Expected: 06/07/2022, Expires: 2 Start: 06-07-2022 End: 08-07-2022 RETIC COUNT RETIC COUNT Lab Routine Iron deficiency anemia due to chronic blood loss Expected: 06/07/2022, Expires: 08/07/2022 [facility] Work Phone: Comment on above: Expected: 06/07/2022, Expires: 2 Start: 03-27-2022 End: 05-27-2022 CBC W Auto Differential panel - Blood CBC + DIFF Lab Routine Iron deficiency anemia due to chronic blood loss Expected: 03/27/2022, Expires: 05/27/2022 [facility] Work Phone: Comment on above: Expected: 03/27/2022, Expires: 2 Start: 03-27-2022 End: 05-27-2022 FERRITIN BLD FERRITIN BLD Lab Routine Iron deficiency anemia due to chronic blood loss Expected: 03/27/2022, Expires: 05/27/2022 [facility] Work Phone: Comment on above: Expected: 03/27/2022, Expires: 2 Start: 03-27-2022 End: 05-27-2022 IRON + TIBC IRON + TIBC Lab Routine Iron deficiency anemia due to chronic blood loss Expected: 03/27/2022, Expires: 05/27/2022 [facility] Work Phone: Comment on above: Expected: 03/27/2022, Expires: 2 Start: 03-27-2022 End: 05-27-2022 RETIC COUNT RETIC COUNT Lab Routine Iron deficiency anemia due to chronic blood loss Expected: 03/27/2022, Expires: 05/27/2022 [facility] Work Phone: Comment on above: Expected: 03/27/2022, Expires: 2 Start: 08-01-2021 Influenza vaccination INFLUENZA (#1) [facility] Start: 2020 Mammography [facility] Start: 2020 Screening for malignant neoplasm of breast [facility] Start: 2010 HPV TESTING HPV TESTING [facility] Start: 2010 Screening for malignant neoplasm of cervix [facility] Start: 2001 PAP TESTING PAP TESTING [facility] Start: 2001 Screening for malignant neoplasm of cervix [facility] Start: 1999 Hepatitis A Vaccine (1 of 2 - Risk 2-dose series) Hepatitis A Vaccine (1 of 2 - Risk 2-dose series) [facility] Start: 1999 Pneumococcal vaccination Pneumococcal Vaccine (1 of 2 - PCV) [facility] Start: 1999 SHINGRIX VACCINE (1 of 2) SHINGRIX VACCINE (1 of 2) [facility] Start: 1999 Urine microalbumin profile [facility] Start: 1998 Depression Screening Depression Screening [facility] Start: 1998 HEPATITIS C SCREENING HEPATITIS C SCREENING [facility] Start: 1998 Hepatitis C screening Hepatitis C Screening [facility] Start: 1998 HIV SCREENING HIV SCREENING [facility] Start: 1998 HIV screening HIV Screening [facility] Start: 1998 MMR (1 of 2 - Risk 2-dose series) MMR (1 of 2 - Risk 2-dose series) [facility] Start: 1998 MMR Vaccine (1 of 2 - Risk 2-dose series) MMR Vaccine (1 of 2 - Risk 2-dose series) [facility] Start: 1992 Adult depression screening assessment DEPRESSION SCREENING [facility] Start: 1992 COVID-19 VACCINE (1) COVID-19 VACCINE (1) [facility] Start: 1991 Screening for malignant neoplasm of cervix Cervical Cancer Screening [facility] Start: 1990 Meningococcal B Vaccine: Consider Based On Risk (1 of 4 - Increased Risk) Meningococcal B Vaccine: Consider Based On Risk (1 of 4 - Increased Risk) [facility] Start: 1990 MENINGOCOCCAL B: Consider based on risk (1 of 4 - Increased Risk Bexsero 2-dose series) MENINGOCOCCAL B: Consider based on risk (1 of 4 - Increased Risk Bexsero 2-dose series) [facility] Start: 1986 PNEUMOCOCCAL (1 - PCV) PNEUMOCOCCAL (1 - PCV) [facility] Start: 1986 Pneumococcal vaccination [facility] Start: 1985 COVID-19 VACCINE (#1) COVID-19 VACCINE (#1) [facility] Start: 1981 HEPATITIS A (1 of 2 - Risk 2-dose series) HEPATITIS A (1 of 2 - Risk 2-dose series) [facility] Start: 02-03-1981 COVID-19 VACCINE (#1) COVID-19 VACCINE (#1) [facility] End: 06-20-2025 BD DXA TRABECULAR BONE SCORE (TBS) BD DXA TRABECULAR BONE SCORE (TBS) Radiology Routine [facility] current use of systemic steroids 1 Occurrences starting 05/21/2024 until 06/20/2025 [facility] Comment on above: 1 Occurrences starting 05/21/2024 until 06/20/2025 End: 12-11-2024 CBC panel - Blood by Automated count CBC Lab Routine [facility] (current) use of immunomodulator Every other week for 2 Occurrences starting 12/12/2023 until 12/11/2024 [facility] Work Phone: Comment on above: Every other week for 2 Occurrences start ing 12/12/2023 until 12/11/2024 End: 06-20-2025 DXA Skeletal system.axial Views for bone density DXA-AXIAL SKELETON Radiology Routine [facility] current use of systemic steroids 1 Occurrences starting 05/21/2024 until 06/20/2025 [facility] Comment on above: 1 Occurrences starting 05/21/2024 until 06/20/2025 End: 12-11-2024 Hepatic function 2000 panel - Serum or Plasma HEPATIC FUNCTION PNL Lab Routine [employer] (current) use of immunomodulator Every other week for 2 Occurrences starting 12/12/2023 until 12/11/2024 [facility] Work Phone: Comment on above: Every other week for 2 Occurrences start ing 12/12/2023 until 12/11/2024 SURGICAL PATHOLOGY [facility] Work Phone: Comment on above: Release Upon Ordering for 1 Occurrences starting 12/17/2024, 1 completed [facility] Payers Date Payer Category Payer Medicaid [id number] 2023 Medicaid [id number] 2022 Medicaid [id number] 2022 Self-pay [id number] 2021 Medicaid [employer] [employer] [id number] 2021-Present [phone] [address] [place] [address] Medicaid [id number] 1980 Unknown [id number] 1980 Unknown [id number] 1980 Unknown [id number] 1980 Unknown [id number] 1980 Unknown [id number] Unknown [id number] Unknown [id number] Unknown [id number] Unknown [id number] Social History Date Type Detail Facility Tobacco smoking stat us ARIS Tobacco smoking consumption unknown [facility] Start: 1980 Sex Assigned At Not on file [facility] Start: 10-15-2021 End: 12-25-2021 Tobacco smoking status ARIS Never smoked tobacco [facility] Start: 12-25-2021 End: 01-07-2025 Alcohol intake Current drinker of alcohol (finding) [facility] Start: 03-30-2023 End: 08-13-2023 Sex Assigned At [facility] Start: 06-08-2022 End: 06-18-2022 Exposure to SARS-CoV-2 (event) Not sure [facility] Start: 1980 Sex Assigned At Female F [facility] Start: 03-30-2023 End: 08-20-2024 Tobacco use and exposure Smokeless tobacco non-user [facility] Start: 03-30-2023 End: 12-17-2024 Alcohol intake Ex-drinker (finding) [facility] Start: 03-31-2023 History SDOH Financial 5 [facility] Start: 03-31-2023 History SDOH Food Worry 1 [facility] Start: 03-31-2023 History SDOH Transpo rt Med 2 [facility] Start: 03-30-2023 End: 08-13-2023 History of Social function [facility] How hard is it for y ou to pay for the very basics like food, housing, medical care, and heating Not hard at all [facility] (I/We) worried katie er (my/our) food would run out before (I/we) got money to buy more. Never true [facility] In the past 12 month s, was there a time when you were not able to pay the mortgage or rent on time? No [facility] Start: 01-08-2024 End: 08-20-2024 Tobacco smoking status NHIS Ex-smoker [facility] End: 12-01-2022 History of tobacco use Current smoker [facility] End: 12-01-2022 History of tobacco use Cigarette Smoker [facility] Are you now , , , , never or living with a partner? Living with partner [facility] How often to you hav e a drink containing alcohol? Monthly or less [facility] How many standard drinks containing alcohol do you have on a typical day? 3 or 4 [facility] How often do you hav e 6 or more drinks on 1 occasion? Less than monthly [facility] How hard is it for y ou to pay for the very basics like food, housing, medical care, and heating Not very hard [facility] Do you feel stress - tense, restless, nervous, or anxious, or unable to sleep at night because your mind is troubled all the time - these days [OSQ] Rather much [facility] Start: 08-13-2023 Tobacco Comment I vape currently [facility] Start: 08-13-2023 Alcohol Comment I drink once a month or less [facility] Start: 02-12-2023 Gender identity Identifies as female gender (finding) [facility] History of tobacco use Passive smoker [facility] Clinical Notes 09-11-2021 to 01-07-2025 LUZ Salazar - 01/07/2025 11:20 AM ESTTelephone Encounter - Corbin Piña LPN - 12/30/2024 2:06 PM ESTTelephone Encounter - Corbin Piña LPN - 12/30/2024 2:06 PM EST Note Date & Type Note Facility 01-07-2025 History of Present illness Narrative Subjective Patient ID: Angela Elam is a 44 y.o. female who presents for Anxiety (Pt states that things are going okay, she states that her daily med isnt working as well). Anxiety Presents for initial visit. The problem has been waxing and waning. Symptoms include excessive worry, insomnia, nervous/anxious behavior, palpitations and panic. Patient reports no chest pain, depressed mood, nausea, shortness of breath or suicidal ideas. The severity of symptoms is interfering with daily activities and causing significant distress. The symptoms are aggravated by family issues. The quality of sleep is poor. Nighttime awakenings: one to two, occasional. Her past medical history is significant for anxiety/panic attacks and depression. Past treatments include benzodiazephines and SSRIs. Review of Systems Constitutional: Negative for chills and fever. Respiratory: Negative for shortness of breath. Cardiovascular: Positive for palpitations. Negative for chest pain. Gastrointestinal: Negative for diarrhea, nausea and vomiting. Musculoskeletal: Negative for myalgias. Skin: Negative for rash. Psychiatric/Behavioral: Positive for sleep disturbance. Negative for dysphoric mood and suicidal ideas. The patient is nervous/anxious and has insomnia. All other systems reviewed and are negative. Objective Visit Vitals BP 122/82 Pulse 104 Temp 98.1 F Ht 5' 7 Wt 218 lb SpO2 99% BMI 34.14 kg/m Smoking Status Former BSA 2.16 m Physical Exam Constitutional: General: She is not in acute distress. Appearance: Normal appearance. HENT: Head: Normocephalic and atraumatic. Mouth/Throat: Mouth: Mucous membranes are moist. Cardiovascular: Rate and Rhythm: Normal rate and regular rhythm. Pulses: Normal pulses. Heart sounds: No murmur heard. No friction rub. No gallop. Pulmonary: Effort: No respiratory distress. Breath sounds: Normal breath sounds. No wheezing, rhonchi or rales. Musculoskeletal: Right lower leg: No edema. Left lower leg: No edema. Skin: General: Skin is warm and dry. Findings: No rash. Neurological: General: No focal deficit present. Mental Status: She is alert and oriented to person, place, and time. Psychiatric: Mood and Affect: Mood is anxious. Behavior: Behavior normal. Judgment: Judgment normal. Assessment/Plan Diagnoses and all orders for this visit: Anxiety (Primary) - desvenlafaxine (Pristiq) 50 MG 24 hr tablet; Take 2 tablets (100 mg) by mouth Daily Psychophysiological insomnia - hydrOXYzine HCl (Atarax) 25 MG tablet; Take 1 tablet (25 mg) by mouth in the morning and 1 tablet (25 mg) at noon and 1 tablet (25 mg) in the evening and 1 tablet (25 mg) before bedtime. Medication as directed. Counseling recommended. Verbalizes understanding of the need to be seen in the ER for suicidal/homicidal ideation, excessive stress, elevated blood pressure or palpitations. Pt offers understanding of treatment plan. I discussed the side effects of the medications prescribed and to seek medical care if they arise. Discussed stress management strategies, social support and importance of healthy diet, exercise and regular sleep habits. Advised on relaxation methods to decrease anxiety and depression. All questions answered. Call the office with any other questions or concerns. documented in this encounter [facility] 12-30-2024 Telephone encounter Note Pt scheduled with Arlin at 2:40 pm tomorrow as needed a later appt. Asking that refill be sent prior to OV as completely out. [facility] 12-30-2024 Telephone encounter Note Images from the original note were not included. Yes, can send You Beck Tee DO25 minutes ago (1:37 PM) ANTHONY Did you want to wait until OV to fill rx? You Angela Elam26 minutes ago (1:37 PM) ANTHONY Miller I left a voicemail yesterday that Dr. Tee did say you were due for an appointment for a refill. Please call [phone] and we can get you scheduled. Thanks! Angela Tee Residential Leasing Manager (supporting Beck Tee DO)28 minutes ago (1:35 PM) Hello! I am wondering why my medication was denied for refill. I have been have pretty severe anxiety the last few days and I don t have anything to take for it as I am out of my kolonopin. Thank you! [facility] 12-30-2024 Miscellaneous Notes Pt scheduled with Arlin at 2:40 pm tomorrow as needed a later appt. Asking that refill be sent prior to OV as completely out. Images from the original note were not included. Yes, can send You Beck Tee DO25 minutes ago (1:37 PM) LC Did you want to wait until OV to fill rx? You Angela Elam26 minutes ago (1:37 PM) LC Hi , I left a voicemail yesterday that Dr. Tee did say you were due for an appointment for a refill. Please call [phone] and we can get you scheduled. Thanks! Angela Tee Residential Leasing Manager (supporting Beck Tee DO)28 minutes ago (1:35 PM) Hello! I am wondering why my medication was denied for refill. I have been have pretty severe anxiety the last few days and I don t have anything to take for it as I am out of my kolonopin. Thank you! documented in this encounter [facility] 12-17-2024 Nurse Note POST OP LEARNING RESPONSE INSTRUCTION PROVIDED TO: Patient and family member METHOD OF INSTRUCTION: Individual instruction Written instruction/Handouts Verbal instruction PATIENT / FAMILY RESPONSE: Information received as demonstrated by interest and questions FOLLOW-UP PLAN: Patient instructed to call with any further issues Recommend - Recommend continued instruction and follow up as directed SUPPLEMENTAL MATERIAL: Post sedation instructions given Procedure discharge instructions REFERRAL (RECOMMENDATION): None Electronically Signed By: Phuong Sanches RN In Department: AMBULATORY SURGERY [facility] 12-17-2024 Nurse Note POST OP LEARNING RESPONSE INSTRUCTION PROVIDED TO: Patient and family member METHOD OF INSTRUCTION: Individual instruction Written instruction/Handouts Verbal instruction PATIENT / FAMILY RESPONSE: Information received as demonstrated by interest and questions FOLLOW-UP PLAN: Patient instructed to call with any further issues Recommend - Recommend continued instruction and follow up as directed SUPPLEMENTAL MATERIAL: Post sedation instructions given Procedure discharge instructions REFERRAL (RECOMMENDATION): None Electronically Signed By: Phuong Sanches RN In Department: AMBULATORY SURGERY PRE OP LEARNING ASSESSMENT PROCEDURE/SURGERY: GI PROCEDURES: Flex Sigmoidoscopy READINESS TO LEARN COGNITIVE ABILITY: Alert and oriented MOTIVATION TO LEARN: Eager Interested FAMILY SUPPORT: Unable to assess - Family not present PATIENT LEARNS BEST BY: Individual Instruction Written Instruction - Hand-outs Verbal Instruction FACTORS AFFECTING LEARNING: None PHYSICAL LIMITATIONS AFFECTING LEARNING: None Electronically Signed By: Jasmin Webb RN In Department: AMBULATORY SURGERY documented in this encounter [facility] 12-17-2024 Nurse Note PRE OP LEARNING ASSESSMENT PROCEDURE/SURGERY: GI PROCEDURES: Flex Sigmoidoscopy READINESS TO LEARN COGNITIVE ABILITY: Alert and oriented MOTIVATION TO LEARN: Eager Interested FAMILY SUPPORT: Unable to assess - Family not present PATIENT LEARNS BEST BY: Individual Instruction Written Instruction - Hand-outs Verbal Instruction FACTORS AFFECTING LEARNING: None PHYSICAL LIMITATIONS AFFECTING LEARNING: None Electronically Signed By: Jasmin Webb RN In Department: AMBULATORY SURGERY [facility] 12-17-2024 History and physical note HISTORY AND PHYSICAL Angela Elam, 44 year old female who presents for surveillance sigmoidoscopy. She was recently diagnosed with CMV colitis and completed 2 weeks of valganciclovir. Indication for procedure: CMV colitis PROCEDURE(S) SCHEDULED FOR: Sigmoidoscopy (Rigid or flexible), with or without biopsies, removal of polyps or lesions,dilation (any means), treatment of bleeding (any means) based on clinical findings. BASELINE BEHAVIOR: Calm BASELINE ORIENTATION: A & O x3 All medications and allergies reviewed: Yes Skin Assessment: Warm, dry, mucus membranes pink Airway/Respiratory Assessment: Airway: visualization of the uvula - Yes Mouth: opening greater than 2 fingerbreadths - Yes Neck: full range of motion - Yes Breath sounds clear/equal - Yes Cardiac Assessment: RRR Abdominal Assessment: Abdomen soft, non-tender, non-distended, no organomegaly or palpable masses Sedation Plan: COMFORT Martinez MD Staff, Department of Gastroenterology and Hepatology [facility] 12-17-2024 History and physical note HISTORY AND PHYSICAL Angela Elam, 44 year old female who presents for surveillance sigmoidoscopy. She was recently diagnosed with CMV colitis and completed 2 weeks of valganciclovir. Indication for procedure: CMV colitis PROCEDURE(S) SCHEDULED FOR: Sigmoidoscopy (Rigid or flexible), with or without biopsies, removal of polyps or lesions,dilation (any means), treatment of bleeding (any means) based on clinical findings. BASELINE BEHAVIOR: Calm BASELINE ORIENTATION: A & O x3 All medications and allergies reviewed: Yes Skin Assessment: Warm, dry, mucus membranes pink Airway/Respiratory Assessment: Airway: visualization of the uvula - Yes Mouth: opening greater than 2 fingerbreadths - Yes Neck: full range of motion - Yes Breath sounds clear/equal - Yes Cardiac Assessment: RRR Abdominal Assessment: Abdomen soft, non-tender, non-distended, no organomegaly or palpable masses Sedation Plan: COMFORT Martinez MD Staff, Department of Gastroenterology and Hepatology [facility] documented in this encounter [facility] 12-06-2024 Telephone encounter Note Please place labs if needed for appt on 12/10. Adri Aquino MA [facility] 12-06-[address] labs if needed for appt on 12/10. Adri Aquino MA documented in this encounter [facility] 11-12-2024 History of Present illness Narrative VIRTUAL VISIT PROGRESS NOTE This is a virtual visit using 80/20 [employer] Video Visit. It required patient-provider interaction for the medical decision making as documented below. I have communicated my name and active licensure. The patient's identity and physical location were verified at the time of this visit. Either the patient or their legal small business sales representative has been informed of the risks and benefits of -- and alternatives to -- treatment through a remote evaluation and consents to proceed with the evaluation remotely. Angela Elam is a 44 year old woman for cmv colitis . Angela Elam is a 44 year old female being evaluated for CMV colitis our opinion is requested by Dr. Beck Hayes. Our findings and recommendations will be communicated through the shared medical record or by letter through [place] mail. HPI: Angela Elam is a 44 year old female presented to ED on 2023 with past medical history of ulcerative colitis, previous C difficile infection, IBS, TIO, ADHD, anxiety/depression, and migraine. She presented send how you of course with bright red bleeding per rectum of 3 days duration, and is admitted with ulcerative colitis flare. C. difficile negative. Calprotectin elevated at 3080. GI evaluated the patient flexible sigmoidoscopy: Impression: - Small external hemorrhoids were found on perianal and digital rectal exams. - Severe (Vanessa Score 3) ulcerative colitis, worsened since the last examination. Biopsied. - A severe, non-traversable stricture was found in the sigmoid colon. Biopsied to rule out malignancy and Crohn's disease. 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 never had covid vaccine (covid twice) 3 pets dogs vape tobacco etoh none no other drug use HISTORY REVIEWED (electronic chart updated): PAST MEDICAL HISTORY Diagnosis Date ADHD (attention deficit hyperactivity disorder) Anemia Anxiety Blood disorder 12/2021 Crohn's disease (HCC) Depression Hypoproteinemia (HCC) Irritable bowel disease Keratoderma Migraine Ulcerative colitis (HCC) PAST SURGICAL HISTORY Procedure Laterality Date COLONSCOPY SCREENING HIGH RISK LEEP PROCEDURE (W NOTE) LIGATE FALLOPIAN TUBE FAMILY HISTORY Problem Relation Age of Onset Asthma Mother Hyperlipidemia Father other (Alchohol use) Father Heart disease Father Arthritis Father Mental illness Sister Mental illness Sister Asthma Maternal Grandmother Depression Maternal Grandmother Mental illness Maternal Grandmother other (other) Maternal Grandfather Hyperlipidemia Maternal Grandfather Alcohol abuse Paternal Grandmother Heart disease Paternal Grandfather Arthritis Paternal Grandfather Heart Attack Paternal Grandfather Social History Tobacco Use Smoking status: Former Current packs/day: 0.00 Types: Cigarettes Quit date: 12/01/2022 Years since quittin.9 Passive exposure: Past Smokeless tobacco: Never Vaping Use Vaping status: current everyday user Substances: Nicotine Devices: Disposable, Pre-filled or refillable cartridge Substance Use Topics Alcohol use: Yes Drug use: Not Currently Current Outpatient Medications Medication Sig valGANciclovir (VALCYTE) 450 mg tablet Take 2 tablets by mouth two times a day for 28 days. risankizumab-rzaa (SKYRIZI) 360 mg/2.4 mL (150 mg/mL) wearable injector Inject 360 mg subcutaneously every 8 weeks. First dose at week 12, then every 8 weeks after that. clonazePAM (KLONOPIN) 0.5 mg tablet Take 0.5 mg by mouth two times a day as needed for anxiety. No current facility-administered medications for this visit. Facility-Administered Medications Ordered in Other Visits Medication Dose Route Frequency NaCl 0.9% iv infusion 500-999 mL/hr INTRAVENOUS PRN diphenhydrAMINE 50 mg injection (BENADRYL) 50 mg INTRAVENOUS PRN hydrocortisone sodium succinate (PF) 100 mg injection (Solu-CORTEF) 100 mg INTRAVENOUS PRN EPINEPHrine 1 mg/mL (1 mL) 0.3 mg injection 0.3 mg INTRAMUSCULAR PRN sodium chloride 0.9 % (flush) 10-20 mL (BD POSIFLUSH) 10-20 mL INTRAVENOUS PRN sodium chloride 0.9 % (flush) 10-20 mL (BD POSIFLUSH) 10-20 mL INTRAVENOUS DIRECTED PRN ALLERGIES No Known Allergies REVIEW OF SYSTEMS: GENERAL: feeling well without fatigue, no recent change in weight PHYSICAL EXAMINATION: VIDEO EXAM: (if completed, performed via video enabled technology) GENERAL: alert and appropriate, in no distress, well-hydrated, well nourished, and happy, smiling, interactive ASSESSMENT: CBC with diff: WBC 12.06 10/09/2024 RBC 4.44 10/09/2024 Hemoglobin 9.7 10/09/2024 Hematocrit 34.7 10/09/2024 MCV 78.2 10/09/2024 MCH 21.8 10/09/2024 MCHC 28.0 10/09/2024 RDW-CV 26.1 10/09/2024 Platelet Count 458 10/09/2024 MPV 8.5 10/09/2024 Neut% 66.9 09/29/2024 Lymph% 25.3 09/29/2024 [place]% 6.4 09/29/2024 Eosin% 0.5 09/29/2024 Baso% 0.2 09/29/2024 Abs Neut (ANC) 8.11 09/29/2024 Abs [place] 0.78 09/29/2024 Abs Eosin 0.06 09/29/2024 Abs Baso <0.03 09/29/2024 CMP: Glucose 91 10/09/2024 BUN 13 10/09/2024 Creatinine 0.90 10/09/2024 Sodium 141 10/09/2024 Potassium 4.0 10/09/2024 Chloride 104 10/09/2024 CO2 23 10/09/2024 Protein, Total 6.1 10/09/2024 Albumin 4.0 10/09/2024 Calcium, Total 8.8 10/09/2024 Alkaline Phosphatase 52 10/09/2024 Bilirubin, Total 0.2 10/09/2024 AST 16 10/09/2024 ALT 18 10/09/2024 Negative hepatitis B antibodies Imagin09/30/2024T abdomen colonic inflammation along the rectosigmoid colon no mass Micro: CMV DNA 10/09/2024 + < 35 copies Enteric panel September 29, 2024 negative C. difficile - 08/2024 Also negative in October 2023 Cryptosporidium and Giardia negative in March 2023 Positive C. difficile PCR March 2023 TB screening 03/2023 negative abd 10/2024 Surgical path 09/30/2024 Component Resulting Agency FINAL DIAGNOSIS A. Sigmoid colon, biopsy: - Predominantly ulcer and granulation tissue. - No dysplasia seen in the scant colonic epithelium. B. Sigmoid, biopsy: - Chronic active colitis. - Negative for dysplasia. C. Rectum, biopsy: - Chronic active proctitis. - Negative for dysplasia. - See comment. Diagnosis Comment [facility] CMV immunostains are pending on the sigmoid and rectum biopsies (parts A and C). Gross Description CCM A. Colon, Sigmoid, Biopsy Received in formalin are multiple pieces of wise-red, soft tissue aggregating to 0.8 x 0.6 x 0.2 cm. Totally submitted in two cassettes. B. Colon, Sigmoid, Biopsy Received in formalin are multiple pieces of wise, soft tissue aggregating to 0.8 x 0.7 x 0.1 cm. Totally submitted in two cassettes. C. Rectum, Biopsy Received in formalin are multiple pieces of wise, soft tissue aggregating to 0.7 x 0.6 x 0.2 cm. Totally submitted in one cassette. JCDM September 30, 2024 2:09 PM Gross examination performed at [facility], [address] [place] [address] Performing Lab [facility] Diagnostic interpretation performed at [facility], [address], [place] [address] CLIA# [id number] Home Security Alarm Installer: Coleen Cramer M.D. Addendum The sigmoid biopsy (part A) is POSITIVE for a few CMV inclusions on immunostain. CMV immunostain on the rectum biopsy (parts C) is POSITIVE in a few viral inclusions as well. assessment CMV colitis on biologic treated with valgan 900 mg po bid IGRA negative recommendations no additional treatment at this time back on biologic (IGRA negative) for IBD encouraged to get flu shot pnuemonia shot (hesistant) to see Dr Martinez next week and would test of cure flex sig bx I spent a total of 45 minutes on the date of the service which included preparing to see the patient, [id number] patient care, completing clinical documentation, obtaining and/or reviewing separately obtained history, performing a medically appropriate examination, counseling and educating the patient/family/caregiver, ordering medications, tests, or procedures, communicating with other HCPs (not separately reported), independently interpreting results (not separately reported), communicating results to the patient/family/caregiver, and care coordination (not separately reported). Orlando Torres MD documented in this encounter [facility] 11-12-2024 Note HNO ID: [id number] Author: ORLANDO TORRES MD Service: ? Author Type: Physician Type: Progress Notes Filed: 11/12/2024 10:46 Note Text: VIRTUAL VISIT PROGRESS NOTE This is a virtual visit using 80/20 [employer] Video Visit. It required patient-provider interaction for the medical decision making as documented below. I have communicated my name and active licensure. The patient's identity and physical location were verified at the time of this visit. Either the patient or their legal small business sales representative has been informed of the risks and benefits of -- and alternatives to -- treatment through a remote evaluation and consents to proceed with the evaluation remotely. Angela Elam is a 44 year old woman for cmv colitis . Angela Elam is a 44 year old female being evaluated for CMV colitis our opinion is requested by Dr. Beck Hayes. Our findings and recommendations will be communicated through the shared medical record or by letter through US mail. HPI: Angela Elam is a 44 year old female presented to ED on 2023 with past medical history of ulcerative colitis, previous C difficile infection, IBS, TIO, ADHD, anxiety/depression, and migraine. She presented send how you of course with bright red bleeding per rectum of 3 days duration, and is admitted with ulcerative colitis flare. C. difficile negative. Calprotectin elevated at 3080. GI evaluated the patient flexible sigmoidoscopy: Impression: - Small external hemorrhoids were found on perianal and digital rectal exams. - Severe (Vanessa Score 3) ulcerative colitis, worsened since the last examination. Biopsied. - A severe, non-traversable stricture was found in the sigmoid colon. Biopsied to rule out malignancy and Crohn's disease. 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 never had covid vaccine (covid twice) 3 pets dogs vape tobacco etoh none no other drug use HISTORY REVIEWED (electronic chart updated): PAST MEDICAL HISTORY Diagnosis Date ADHD (attention deficit hyperactivity disorder) Anemia Anxiety Blood disorder 12/2021 Crohn's disease (HCC) Depression Hypoproteinemia (HCC) Irritable bowel disease Keratoderma Migraine Ulcerative colitis (HCC) PAST SURGICAL HISTORY Procedure Laterality Date COLONSCOPY SCREENING HIGH RISK LEEP PROCEDURE (W NOTE) LIGATE FALLOPIAN TUBE FAMILY HISTORY Problem Relation Age of Onset Asthma Mother Hyperlipidemia Father other (Alchohol use) Father Heart disease Father Arthritis Father Mental illness Sister Mental illness Sister Asthma Maternal Grandmother Depression Maternal Grandmother Mental illness Maternal Grandmother other (other) Maternal Grandfather Hyperlipidemia Maternal Grandfather Alcohol abuse Paternal Grandmother Heart disease Paternal Grandfather Arthritis Paternal Grandfather Heart Attack Paternal Grandfather Social History Tobacco Use Smoking status: Former Current packs/day: 0.00 Types: Cigarettes Quit date: 12/01/2022 Years since quittin.9 Passive exposure: Past Smokeless tobacco: Never Vaping Use Vaping status: current everyday user Substances: Nicotine Devices: Disposable, Pre-filled or refillable cartridge Substance Use Topics Alcohol use: Yes Drug use: Not Currently Current Outpatient Medications Medication Sig valGANciclovir (VALCYTE) 450 mg tablet Take 2 tablets by mouth two times a day for 28 days. risankizumab-rzaa (SKYRIZI) 360 mg/2.4 mL (150 mg/mL) wearable injector Inject 360 mg subcutaneously every 8 weeks. First dose at week 12, then every 8 weeks after that. clonazePAM (KLONOPIN) 0.5 mg tablet Take 0.5 mg by mouth two times a day as needed for anxiety. No current facility-administered medications for this visit. Facility-Administered Medications Ordered in Other Visits Medication Dose Route Frequency NaCl 0.9% iv infusion 500-999 mL/hr INTRAVENOUS PRN diphenhydrAMINE 50 mg injection (BENADRYL) 50 mg INTRAVENOUS PRN hydrocortisone sodium succinate (PF) 100 mg injection (Solu-CORTEF) 100 mg INTRAVENOUS PRN EPINEPHrine 1 mg/mL (1 mL) 0.3 mg injection 0.3 mg INTRAMUSCULAR PRN sodium chloride 0.9 % (flush) 10-20 mL (BD POSIFLUSH) 10-20 mL INTRAVENOUS PRN sodium chloride 0.9 % (flush) 10-20 mL (BD POSIFLUSH) 10-20 mL INTRAVENOUS DIRECTED PRN ALLERGIES No Known Allergies REVIEW OF SYSTEMS: GENERAL: feeling (more content not included)... [facility] 11-04-2024 Telephone encounter Note See patient message [facility] 11-04-2024 Miscellaneous Notes See patient message Attempted to contact patient. No answer. Left message reminding patient of order for blood work that needs to be done before her insurance will approve the Skyrizi. Will await results. Melanie Lechuga RN documented in this encounter [facility] 11-04-2024 Telephone encounter Note Attempted to contact patient. No answer. Left message reminding patient of order for blood work that needs to be done before her insurance will approve the Skyrizi. Will await results. Melanie Lechuga RN [facility] 11-03-2024 Telephone encounter Note call to patient on scheduele for Monday 11/[address] bx want to get started on valgan 900 mg po bid ordered message left and message to GI doc will try to see virtually tomarrow Orlando Torres MD [facility] Work Phone: 11-03-2024 Miscellaneous Notes call to patient on scheduele for Monday 11/[address] bx want to get started on valgan 900 mg po bid ordered message left and message to GI doc will try to see virtually tomarrow Orlando Torres MD documented in this encounter [facility] 10-21-2024 Telephone encounter Note Call placed to ID and spoke with scheduling team who found an appointment with ID on FridayNovember 12, at 10:30am. This is the first available for requested day of the week. Patient notified via [employer]. Allie Pittman LPN [facility] 10-21-2024 Miscellaneous Notes Call placed to ID and spoke with scheduling team who found an appointment with ID on FridayNovember 12, at 10:30am. This is the first available for requested day of the week. Patient notified via [employer]. Allie Pittman LPN Attempted again to contact patient. No answer. Left message advising that I didn't see that she scheduled with ID yet. Reminded her that it was important to schedule an OV with ID as soon as possible. Advised that if she had trouble making an appointment, to call the office or send a MC message and we could help make the appt. Melanie Lechuga RN Attempted to contact patient to see if I could help her get an appointment with ID. No answer. Left voicemail asking her to either call the office or send MC message. Melanie Lechuga RN I spoke with about her biopsy results this afternoon, which show CMV colitis. She endorses persistent diarrhea with scant bleeding despite taking prednisone, Lack of response to prednisone is best explained by acute CMV infection. She denies fevers/chills, vomiting, inability to tolerate PO, severe abdominal pain or symptoms of severe dehydration. CMV PCR ordered. She was urged to go to the lab to get this done prior to starting treatment. A 2-week course of valganciclovir was prescribed. ID consult placed. I'd like to get her in to see ID within 1 week given the acuity of this infection. She is open to virtual appointments. Melanie, can you see if she was successful in finding an appointment on Friday? My chart message sent about appointment 11/15/2024 at [facility] at 1230pm Attempted again to contact patient. No answer. Mailbox full. Sent MC message with results and recommendations from Dr. Martinez as seen below. Anya - Can you help find an OV times slot for this patient in 6 weeks? I added her to the wait list. Thanks! Melanie Lechuga RN Attempted to contact patient. Went to [employer] but mailbox is full and cannot accept messages at this time. Will try to call again later. Melanie Lechuga RN Melanie, can you please call and review her pathology results? Biopsies from her rectum and sigmoid colon show chronic active colitis, consistent with inflammatory bowel disease. No dysplasia or distinguishing features of Crohn's disease were found in her stricture biopsies and random colon biopsies. CMV stains are pending, but I will contact her if this is positive. My suspicion is low for this. I'd like to see her in the office in 6 weeks. This will give her enough time to get 2 Skyrizi injections. There is a possibility that she could have Crohn's colitis based on the non-traversable stricture found in her sigmoid colon. UC is typically not associated with stricturing disease. UC can be cured with a total colectomy, but Crohn's disease does not always go into remission after a TAC because it can involve other areas of the GI tract. Dr. Martinez, Do you have a time frame in which you would like patient to be seen? Melanie Lechuga RN S/p flex sig with worsening disease was on IV steroids. Feeling better today going to be discharge Getting skyrizi today and IV iron Will need follow up with Dr. Martinez. She is trying to get things figured out in order to get surgery. Had long conversation with her Primary sending out with month worth of Prednisone 40 mg PO daily until gets couple Skyrizi doses in then taper Thanks Deric documented in this encounter [facility] 10-20-2024 Telephone encounter Note Attempted again to contact patient. No answer. Left message advising that I didn't see that she scheduled with ID yet. Reminded her that it was important to schedule an OV with ID as soon as possible. Advised that if she had trouble making an appointment, to call the office or send a MC message and we could help make the appt. Melanie Lechuga RN [facility] 10-12-2024 Telephone encounter Note Attempted to contact patient to see if I could help her get an appointment with ID. No answer. Left voicemail asking her to either call the office or send MC message. Melanie Lechuga RN [facility] 10-08-2024 Telephone encounter Note I spoke with about her biopsy results this afternoon, which show CMV colitis. She endorses persistent diarrhea with scant bleeding despite taking prednisone, Lack of response to prednisone is best explained by acute CMV infection. She denies fevers/chills, vomiting, inability to tolerate PO, severe abdominal pain or symptoms of severe dehydration. CMV PCR ordered. She was urged to go to the lab to get this done prior to starting treatment. A 2-week course of valganciclovir was prescribed. ID consult placed. I'd like to get her in to see ID within 1 week given the acuity of this infection. She is open to virtual appointments. Melanie, can you see if she was successful in finding an appointment on Friday? [facility] 10-08-[address] Martinez please see patients MC message and advise [facility] 10-08-[address] Martinez please see patients MC message and advise documented in this encounter [facility] 10-05-2024 Telephone encounter Note My chart message sent about appointment [facility] 10-05-2024 Telephone encounter Note 11/15/2024 at [facility] at 1230pm [facility] 10-05-2024 Telephone encounter Note Attempted again to contact patient. No answer. Mailbox full. Sent MC message with results and recommendations from Dr. Martinez as seen below. Anya - Can you help find an OV times slot for this patient in 6 weeks? I added her to the wait list. Thanks! Melanie Lechuga RN [facility] 10-04-2024 Telephone encounter Note Attempted to contact patient. Went to [employer] but mailbox is full and cannot accept messages at this time. Will try to call again later. Melanie Lechuga RN [facility] 10-01-2024 Telephone encounter Note Melanie, can you please call and review her pathology results? Biopsies from her rectum and sigmoid colon show chronic active colitis, consistent with inflammatory bowel disease. No dysplasia or distinguishing features of Crohn's disease were found in her stricture biopsies and random colon biopsies. CMV stains are pending, but I will contact her if this is positive. My suspicion is low for this. I'd like to see her in the office in 6 weeks. This will give her enough time to get 2 Skyrizi injections. There is a possibility that she could have Crohn's colitis based on the non-traversable stricture found in her sigmoid colon. UC is typically not associated with stricturing disease. UC can be cured with a total colectomy, but Crohn's disease does not always go into remission after a TAC because it can involve other areas of the GI tract. [facility] 10-01-2024 Telephone encounter Note Pt's Skyrizi not given today, pharmacy does not have enough for the 1200 mg dose (only 600 mg available). Pt agreeable to return on Friday10/05/24 for her first Skyrizi and wants her next venofer done this day also. Other Skyrizi appts will be scheduled on Fridays per pt request and at least 28 days apart, therefore, scheduled on 11/05/24 and 12/03/24 at 1400. Sravani Santana RN aware of changes to schedule. Pascual Healy RN [facility] 10-01-2024 Note HNO ID: [id number] Author: PASCUAL HEALY RN Service: ? Author Type: Registered Nurse Type: Progress Notes Filed: 10/01/2024 16:05 Note Text: Pt's Skyrizi not given today, pharmacy does not have enough for the 1200 mg dose (only 600 mg available). Pt agreeable to return on Friday10/05/24 for her first Skyrizi and wants her next venofer done this day also. Other Skyrizi appts will be scheduled on Fridays per pt request and at least 28 days apart, therefore, scheduled on 11/05/24 and 12/03/24 at 1400. Sravani Santana RN aware of changes to schedule. Pascual Healy RN [facility] 10-01-2024 History of Present illness Narrative Pt's Skyrizi not given today, pharmacy does not have enough for the 1200 mg dose (only 600 mg available). Pt agreeable to return on Friday10/05/24 for her first Skyrizi and wants her next venofer done this day also. Other Skyrizi appts will be scheduled on Fridays per pt request and at least 28 days apart, therefore, scheduled on 11/05/24 and 12/03/24 at 1400. Sravani Santana RN aware of changes to schedule. Pascual Healy RN documented in this encounter [facility] 10-01-2024 Miscellaneous Notes Pt's Skyrizi not given today, pharmacy does not have enough for the 1200 mg dose (only 600 mg available). Pt agreeable to return on Friday10/05/24 for her first Skyrizi and wants her next venofer done this day also. Other Skyrizi appts will be scheduled on Fridays per pt request and at least 28 days apart, therefore, scheduled on 11/05/24 and 12/03/24 at 1400. Sravani Santana RN aware of changes to schedule. Pascual Healy RN documented in this encounter [facility] 10-01-[address] Martinez, Do you have a time frame in which you would like patient to be seen? Melanie Lechuga RN [facility] 10-01-2024 Telephone encounter Note S/p flex sig with worsening disease was on IV steroids. Feeling better today going to be discharge Getting skyrizi today and IV iron Will need follow up with Dr. Martinez. She is trying to get things figured out in order to get surgery. Had long conversation with her Primary sending out with month worth of Prednisone 40 mg PO daily until gets couple Skyrizi doses in then taper Thanks Deric [facility] Work Phone: 09-30-2024 Note HNO ID: [id number] Author: EUGENIE PLATA RT(R) Service: Radiology Author Type: Technologist Type: Progress Notes Filed: 09/30/2024 16:11 Note Text: Radiology Service Progress Note PATIENT NAME: Angela Elam DATE OF SERVICE: September 30, 2024 TIME: 4:11 PM PATIENT IDENTITY VERIFICATION COMPLETED USING TWO (2) IDENTIFIERS: Name and Date of confirmed by patient verbally and Name and Date of confirmed by identification band. FALL SCREENING: Has the patient had 2 falls in the last year or 1 fall with injury or currently using an Ambulatory Assistive Device (Walker, Cane, Wheelchair, Crutches, etc.)? Inpatient: Screened on floor PATIENT GENDER DATA: Female. status: : No status: NO. PATIENT RELEVANT IMPLANT DATA REVIEWED: Not Applicable PATIENT PRESENTS WITH AN IMPLANTABLE OR ATTACHED DIRECTOR PEOPLESOFT: No RADIOLOGY DEPARTMENT: CT; Exam(s) Completed: Abdomen/Pelvis PERIPHERAL IV DATA: Inpatient: see LDA documentation SIGNED BY: RT Hayden(R) September 30, 2024 4:11 PM [facility] 09-30-2024 Note HNO ID: [id number] Author: DAVE LOVELACE LSW Service: Care Management Author Type: Supply Crib Attendant Type: Care Mgt Initial Assessment Filed: 09/30/2024 10:23 Note Text: CARE MANAGEMENT: ASSESSMENT AND DISCHARGE PLAN SERVICE DATE: September 30, 2024 SERVICE TIME: 10:22 AM PCP: Beck Tee DO, DO Primary Contact: Extended Emergency Contact Information Primary Emergency Contact: Larry Dwyer [facility] Mobile Relation: Significant other Admission Status: Inpatient Insurance Provider: HERMILO [place] OF [place] Discharge Planning requested by: Per Department Practice Potential Transition Plans Home Advance Directives Current Advance Directive: None Learning Support Services Director Attempted to Assist with AD Completion: Yes Action: Education Provided Current Living Arrangements and Support Lives with: Alone Type of Residence: Private Residence (House) Does the patient have to climb stairs at home?: Yes Support: Spouse/significant other, Family members How do you manage to accomplish the following: Independent: Ambulation;Bathe/Shower;Dress;Meals/ Meal Prep;Going to the bathroom;Medication Management;Transportation to appointments/community Current Services/Equipment Current Post-Acute Service(s): None Discharge Planning Patient Goal(s): The patient/family expressed post-acute services are not needed at this time. [place] of Choice Explained: [place] of Choice Given: No Reason Not Given: No placements necessary Are you interested in bedside delivery of your medications? Discharge Planning Participant(s): Patient Patient/Family Comments: Caregiver Assessment: Caregiver is ready, willing and able to meet the patient's needs as recommended by the inter-professional team: No Caregiver needed Transport at Discharge: Transportation Arrangements: Car Needs Prior to Discharge: Needs Prior to Discharge: None Post-Acute Discharge Plan: Pt is here for ulcerative colitis with rectal bleeding. She lives at home with her jessie Juarez. Independent at baseline. No DME use. Plan for home no needs. Fiance to transport home. SIGNATURE: LAMBERT Feliz PATIENT NAME: Angela Elam DATE: September 30, 2024 TIME: 10:22 AM CONTACT #: [id number] [facility] 09-30-2024 Note HNO ID: [id number] Author: YURIY PACK MD Service: Hospital Medicine Author Type: Physician Type: Progress Notes Filed: 09/30/2024 14:03 Note Text: DEPARTMENT OF HOSPITAL MEDICINE PROGRESS NOTE SERVICE DATE: 09/30/2024 SERVICE TIME: 1:52 PM Hospital Medicine/Primary Attending: Yuriy Pack MD NIGHT AND WEEKEND COVERAGE: [place] COVERAGE: Days: , please contact via [employer] Nights: - floor: please page [facility] Hospitalist night cover [phone] - 4W: please page [facility] Hospitalist night cover #[phone] - 5th floor: please page [facility] Hospitalist night cover #[phone] - SDU (17:00 - 19:00): Please page #[phone] - SDU (19:00 - 07:00): Please call [facility] at [phone] Subjective INTERVAL HPI: Patient seen and examined. Sitting upright bedside. Pt stated she noticed bright red blood in her stool on Friday and it has persisted since. Stool is otherwise described as watery and occurs 10x a day. Diffuse abdominal cramping has accompanied her diarrhea bouts and denies any relief with prednisone 20 mg daily. Pt additionally notes occasional dizziness and reoccurring headaches for which she was taking ibuprofen up until 09/26. Pt denied N/F/V. Current Facility-Administered Medications Medication Dose Route Frequency NaCl 0.9% iv flush bag 20 mL INTRAVENOUS PRN clonazePAM 0.5 mg tab(s) (KlonoPIN) 0.5 mg ORAL BID PRN methylPREDNISolone sod succinate(PF) 20 mg injection (SOLU-Medrol) 20 mg INTRAVENOUS q 8 H morphine 2 mg injection 2 mg INTRAVENOUS q 4 H PRN ondansetron (PF) 4 mg injection (ZOFRAN) 4 mg INTRAVENOUS q 6 H PRN oxyCODONE IR 5 mg tab(s) (ROXICODONE) 5 mg ORAL q 6 H PRN Objective PHYSICAL EXAM: BP 139/74 Pulse 112 Temp (Src) 98.8 (Oral) Resp 16 Ht 5' 5.984 (1.68m) Wt 206 lb 2.1 oz (93.5kg) SpO2 100% LMP 09/13/2024 BMI 33.29 kg/(m2). O2 Therapy: Room Air, Liters: RA Physical Exam Performed: General appearance: Well appearing, alert and orientedx3, in no acute distress. Skin: color, texture, turgor normal Head: Normocephalic, no masses, lesions Eyes: PERRLA. Neck: Supple, no bruits Lungs: Clear to auscultation. No wheezing, rhonchi, rales. Cardiac: RRR, no murmur, gallop, or rubs Abdomen: soft, mild generalized tenderness, no rebound tenderness. Bowel sounds increased Extremities: No deformities, edema, skin discoloration Musculoskeletal: No joint swelling, deformity, or tenderness Neuro: No focal neurologic deficit Lines, Drains, and Airways Line Duration Peripheral 09/29/24 0234 Left Antecubital 20 Gauge 1 day Reviewed lines and needs to be continued: REASONS: Intravenous fluids and intravenous steroids DATA: Diagnostic tests reviewed for today's visit: Most recent labs Most recent imaging Most recent EKG CBC, Coags, BMP, Mg, Phos Recent Labs 09/30/24 0432 09/29/24 0533 09/29/24 0234 WBC 12.49* 10.69 12.11* HB 8.0* 8.3* 8.3* HCT 30.6* 30.3* 30.1* PLT 471* 433* 429* NA 137 140 139 K 4.3 4.2 3.4* CHLOR 104 107 104 CO2 25 22 23 BUN 12 17 16 CREAT 0.78 0.87 0.92 GLUC 125* 116* 135* CA 9.5 9.5 9.3 MG -- 2.1 -- Assessment/Plan Problem List Assessment AND Plan Ulcerative colitis with rectal bleeding (HCC) Iron deficiency anemia due to chronic blood loss Anxiety Vapes nicotine containing substance Migraines Hypokalemia Obesity Thrombocytosis HOSPITAL COURSE: Angela Elam is a 44 year old female presented with past medical history of ulcerative colitis, previous C difficile infection, IBS, TIO, ADHD, anxiety/depression, and migraine. She presents with bright red bleeding per rectum of 3 days duration, and is admitted with ulcerative colitis flare. # Ulcerative colitis with rectal bleeding (HCC) Presenting with bright red bleeding per rectum with periumbilical pain of 3 days duration. Passing about 10 bloody bowel movements per day since symptom onset. Preceded by NSAID use for 3 days. Home regimen: Prednisone 20 mg p.o. daily; Skyrizi was supposed to be commenced this upcoming Friday. CRP 0.6 (WNL). Received methylprednisolone 60 mg IV in the ED. Plan: - Methylprednisolone 20 mg IV every 8 hours - Fecal calprotectin pending - C. difficile PCR test negative - Enteric bacterial panel negative - On clear liquid diet - GI evaluated the patient and did flexible sigmoidoscopy which showed: Impression: - Small external hemorrhoids were found on perianal and digital rectal exams. - Severe (Vanessa Score 3) ulcerative colitis, worsened since the last examination. Biopsied. - A severe, non-traversable stricture was found in the sigmoid colon. Biopsied to rule out malignancy and Crohn's disease. - The examination was otherwise normal. Recommendation: - [facility]. - Clear liquid diet. - Minimize/avoid antidiarrheals and opiates. - Continue present medications, including Solumedrol 20 mg IV every 8 hours. - Await pat (more content not included)... [facility] 09-30-2024 Note HNO ID: [id number] Author: ABRIL MCKNIGHT RN Service: Nursing Author Type: Registered Nurse Type: Nursing Progress Note Filed: 09/30/2024 08:26 Note Text: Other: Off unit for Flex-Sig at this time. [facility] 09-29-2024 Note HNO ID: [id number] Author: MICHELLE WEINBERG [facility] Service: Pharmacy Author Type: Pharmacist Type: Plan of Care Filed: 09/29/2024 16:43 Note Text: PHARMACY MEDICATION REVIEW Patient Name: Angela Elam : 1980 The following medications were updated within the [facility] [facility] medication list: Medications ADDED to [facility] medication list NA Medications CHANGED on [facility] [facility] medication list clonazePAM (KLONOPIN) 0.5 mg tablet - added indication Medications REMOVED from [facility] [facility] medication list desvenlafaxine ER (PRISTIQ) 50 mg 24 hr tablet - pt reports no longer taking this med, as she states it does not work; stopped taking about 2 weeks ago; provider aware Additional comments: risankizumab-rzaa (SKYRIZI) 360 mg/2.4 mL (150 mg/mL) wearable injector - pt has not started this med yet The below information represents the best possible medication history: Yes Medication history completed by: Cue Selector: Cris Webb Source of history: Patient: Reliability of source: Appears reliable, clearly identified: Medication name, Medication dose, Medication route, Medication frequency, Timing of last dose, and Indications Medication nonadherence identified: No barriers noted Reconciliation completed: Yes Completed by: Michelle Weinberg RPh All [facility] medications addressed by LIP Patient interested in Bedside Delivery Services or using OP Pharmacy at discharge? Unable to assess Preferred outpatient pharmacy: e- [facility]/pharmacy #[id number] [place] [address] - [address] [facility] [phone] [facility] Allergies: No Known Allergies Prior to Admission Medications Prescriptions Last Dose Informant Patient Reported? Taking? clonazePAM (KLONOPIN) 0.5 mg tablet Yes Yes Sig: Take 0.5 mg by mouth two times a day as needed for anxiety. predniSONE (DELTASONE) 10 mg tablet No Yes Sig: Take 2 tablets by mouth once daily. risankizumab-rzaa (SKYRIZI) 360 mg/2.4 mL (150 mg/mL) wearable injector No No Sig: Inject 360 mg subcutaneously every 8 weeks. First dose at week 12, then every 8 weeks after that. Facility-Administered Medications: None Cris Webb 09/29/2024 Pharmacist Addendum: I have reviewed the above information with the computer aided design technician and agree with the assessment/plan described. I did not personally speak to the patient/caregiver to confirm the medication history or adherence. Michelle Weinberg RPh 09/29/2024 4:43 PM Ext: [id number] [facility] 09-29-2024 Note HNO ID: [id number] Author: OBEY RATLIFF APRN.COUNCILPERSON Service: Hospital Medicine Author Type: Nurse Practitioner Type: Plan of Care Filed: 09/29/2024 10:09 Note Text: Department of Hospital Medicine Plan of Care Patient resting on cot in the ED. States that her BMs have slowed down since coming into the ED, reports about 6 small stools since midnight. States that normally at this time of the day, she could hardly do anything without needing to get on the toilet every 5 minutes. She reports improvement in her abdominal pain as well but reports having leg pain. Patient mentioned that about 1 year ago, she was planning on having a total colectomy with J pouch formation but plans changed once she received custody of her niece. In the meantime, she has plans to start Skyrizi this coming Friday. Last colonoscopy 10/2001 and sigmoidoscopy 03/2023. Physical Examination: GENERAL: Alert, cooperative, and pleasant in no apparent distress. SKIN: Skin color, texture, and turgor normal. No visible rashes or lesions noted. HEAD/SINUSES: Normocephalic and atraumatic. EYES: PERRLA, EOMI NECK: No jugulovenous distention. Supple. BACK: Back symmetric, Normal curvature, ROM normal. LUNGS: Lungs clear to auscultation, no wheezing, rhonchi, or rales noted. Good diaphragmatic excursion. CARDIAC: Normal S1 and S2; no rubs, murmurs, or gallops. ABDOMEN: Abdomen soft, non-distended, with mild generalized tenderness. BS present x4. EXTREMITIES: Extremities normal with no edema. Good capillary refill. NEURO: Alert and oriented to person, place, and time. No focal deficits noted. Sensation and cognition intact. Normal motor function. PULSES: 2+ radial, 2+ dorsalis pedis The remainder of the physical exam is noncontributory. Plan: - Solumedrol 20 mg IV Q8 hours - LR at 100 ml/hr while NPO - Oxy IR PRN - Morphine IV PRN - NPO x meds and ice chips until seen by GI - Consult to GI, appreciate eval and recs - Stool chart - Monitor stool studies - BMP and CBC in AM SIGNATURE: Obey Ratliff APRN.MANGO PATIENT NAME: Angela Elam DATE: September 29, 2024 TIME: 10:07 AM Please use Secure messaging to contact me between 7:30 AM and 5:30 PM. For unanswered messages please page me immediately if urgent or in 30 minutes if nonurgent [facility] 09-28-2024 Telephone encounter Note I did call the patient Patient is having 10 stools a day. Liquid stools and bloody stools. C/o dizziness, lightheadedness, SOB and Palpitations. Denies Chest pain. She is taking Prednisone 20 mg daily. Symptoms developed on Friday and are getting worst. Blood clots are seen in the toilet and on the toilet paper. Blood clots are the size of dime or nickel. 3-4 blood clots at a time is seen. Patient confirm she was taking 800 mg of motrin for a headache for 3 days. Instructed patient to go to the ER. Patient declined to go to [facility]. Patient said she will go to [facility] or [facility]. Patient said [place] is closer. I did tell her [facility] has colorectal surgeons. Patient has many stressors at home. She is taking car of a niece and watches her grandson when the mom goes to work. She is worried about the care of the niece (baby) and the Grandson (6 months old). Patient was crying on the phone. I talked to the patient for 30 minutes. Explained the risk if she does not go to the ER. Explained the risk of anemia and dehydration to the patient. Patient verbalized good understanding. Patient said she will call her daughters and fiance to arrange for help and she will go to the ER. Support and encouragement given. Grace Hodgson LPN [facility] 09-28-2024 Miscellaneous Notes I did call the patient Patient is having 10 stools a day. Liquid stools and bloody stools. C/o dizziness, lightheadedness, SOB and Palpitations. Denies Chest pain. She is taking Prednisone 20 mg daily. Symptoms developed on Friday and are getting worst. Blood clots are seen in the toilet and on the toilet paper. Blood clots are the size of dime or nickel. 3-4 blood clots at a time is seen. Patient confirm she was taking 800 mg of motrin for a headache for 3 days. Instructed patient to go to the ER. Patient declined to go to [facility]. Patient said she will go to [facility] or [facility]. Patient said [place] is closer. I did tell her [facility] has colorectal surgeons. Patient has many stressors at home. She is taking car of a niece and watches her grandson when the mom goes to work. She is worried about the care of the niece (baby) and the Grandson (6 months old). Patient was crying on the phone. I talked to the patient for 30 minutes. Explained the risk if she does not go to the ER. Explained the risk of anemia and dehydration to the patient. Patient verbalized good understanding. Patient said she will call her daughters and fiance to arrange for help and she will go to the ER. Support and encouragement given. Grace Hodgson LPN Addended by: MAK MARTINEZ on: 09/28/2024 05:09 PM Modules accepted: Orders Melanie, can you please call and get some more information / relay my recommendations? I'm concerned that she may need to go to the ER. Please find out the followin) # stools/day 2) what dose of prednisone she's currently taking 3) if she's taking NSAIDs 4) if she has any sick contacts, fevers/chills 5) any other concerning symptoms (chest pain, lightheadedness, palpitations, etc) If she's having >8 stools/day, severe abdominal pain or other concerning symptoms, she should go to the ER. She lives in [place]. If she doesn't need EMS, she should go to [facility] and have someone else drive her since we don't know how much blood she lost since her last CBC 2 weeks ago. [place] is preferred because colorectal surgery can see her in-house if needed. If her symptoms are milder, I recommend she get blood work done and stool testing ROBIN. I placed these orders. In this case, she should also start taking prednisone 40 mg/day. At this time, she should make arrangements for someone to care for her niece in case she needs to go to the hospital in the near future. I do not recommend or know of an arrangement in which she can receive IV steroids at home. If she's sick enough to require this, she should be in the hospital. Dr Martinez please see message documented in this encounter [facility] 09-28-2024 Note Addended by: MAK MARTINEZ on: 09/28/2024 05:09 PM Modules accepted: Orders [facility] 09-28-2024 Telephone encounter Note Melanie, can you please call and get some more information / relay my recommendations? I'm concerned that she may need to go to the ER. Please find out the followin) # stools/day 2) what dose of prednisone she's currently taking 3) if she's taking NSAIDs 4) if she has any sick contacts, fevers/chills 5) any other concerning symptoms (chest pain, lightheadedness, palpitations, etc) If she's having >8 stools/day, severe abdominal pain or other concerning symptoms, she should go to the ER. She lives in [place]. If she doesn't need EMS, she should go to [facility] and have someone else drive her since we don't know how much blood she lost since her last CBC 2 weeks ago. [place] is preferred because colorectal surgery can see her in-house if needed. If her symptoms are milder, I recommend she get blood work done and stool testing ROBIN. I placed these orders. In this case, she should also start taking prednisone 40 mg/day. At this time, she should make arrangements for someone to care for her niece in case she needs to go to the hospital in the near future. I do not recommend or know of an arrangement in which she can receive IV steroids at home. If she's sick enough to require this, she should be in the hospital. [facility] 09-28-[address] Martinez please see MC message [facility] 09-27-2024 Telephone encounter Note Images from the original note were not included. Yuli James RPh You; [facility] 21 hour ago (9:49 AM) Thanks for letting us know Melanie! We will make sure we submit PA before her third infusion dose. Thanks! Yuli [facility] 09-27-2024 Miscellaneous Notes Images from the original note were not included. Yuli James RPh [facility]; [facility] 21 hour ago (9:49 AM) Thanks for letting us know Melanie! We will make sure we submit PA before her third infusion dose. Thanks! Yuli Yuli James RPh 09/06/24 6:08 PM [facility] received prescription(s) for Skyrizi from Dr. Martinez's office. Benefits investigation was conducted, indicating that a prior authorization is required by patient's insurance plan with [facility]. Encounter will be updated once prior authorization has been submitted by [facility]. Pt has not yet received infusion doses. Yuli James, PharmD Clinical Pharmacist, [employer] [facility] ; Pool: P [facility] Pool #: [id number] Colton Roldan, I just wanted to let you know that the patient will be getting her infusions on 10/01, 10/29, and 11/26. Will be due to start injections (OBI) on 11/24. Thanks! Melanie Lechuga RN documented in this encounter [facility] 09-27-2024 Telephone encounter Note Yuli James [facility] 09/06/24 6:08 PM [facility] received prescription(s) for Skyrizi from Dr. Martinez's office. Benefits investigation was conducted, indicating that a prior authorization is required by patient's insurance plan with [employer]. Encounter will be updated once prior authorization has been submitted by [facility]. Pt has not yet received infusion doses. Yuli James, PharmD Clinical Pharmacist, [employer] [facility] ; Pool: P [facility] Pool #: [id number] Ne Yuli, I just wanted to let you know that the patient will be getting her infusions on 10/01, 10/29, and 11/26. Will be due to start injections (OBI) on 11/24. Thanks! Melanie Lechuga RN [facility] 09-21-2024 Telephone encounter Note VM left for pt with MM message below. Encouraged to call with any questions, needs or concerns. Follow up appointment dates and times provided. Deric Inman RN [facility] 09-21-2024 Miscellaneous Notes VM left for pt with MM message below. Encouraged to call with any questions, needs or concerns. Follow up appointment dates and times provided. Deric Inman RN ----- Message from Dilma Montes PA-C sent at 09/21/2024 10:58 AM EDT ----- Please call and inform the patient that her anemia work up just confirmed iron deficiency. No other causes for anemia. Proceed with IV iron as planned and see me back as scheduled. documented in this encounter [facility] 09-21-2024 Telephone encounter Note ----- Message from Dilma Montes PA-C sent at 09/21/2024 10:58 AM EDT ----- Please call and inform the patient that her anemia work up just confirmed iron deficiency. No other causes for anemia. Proceed with IV iron as planned and see me back as scheduled. [facility] 09-17-2024 History of Present illness Narrative [facility] CLINICAL CONSULTATION NOTE Hematologic Oncology and Blood Disorders PATIENT NAME: Angela Elam DATE OF SERVICE: September 17, 2024 The patient is referred by Beck Tee Jr. for further evaluation of iron deficiency anemia due to chronic blood loss. CHIEF COMPLAINT: Iron deficiency anemia due to chronic blood loss HISTORY OF THE PRESENT ILLNESS: Patient is a 44 year old woman presenting here to establish care. Patient's iron deficiency anemia was previously being treated by her GI doctor but has transferred her care to us. Her history of iron deficiency anemia due to chronic blood loss is attributed to the patient's ulcerative pancolitis. Patient was first diagnosed 7 years ago after having severe bloody diarrhea. Patient has been on many medications and none have helped. Patient reports that her diarrhea is worse in the morning with an average of 10 bowel movements per day, sometimes waking her up at night. Patient reports that she has not noticed blood in her stool since her last flare up which was a year and a half ago, and reports her flare ups involve severe bloody diarrhea. Patient reports she does not often have abdominal pain during the day. Patient also experiences chronic fatigue, ice chewing, dizziness and lightheadedness, thinning hair and chills. Symptoms: Fatigue: Yes Pica: Yes; in the past year SOB: No Chest Pain/Palpitations: No Lightheadedness: Yes Dizziness: Yes Headache: No Brittle hair/nails: Other; thinning hair Restless Legs: No Bleeding: Other; blood in stool Chills: Yes Difficulty concentrating/brain fog: No History of anemia: Yes Oral Iron History: Yes; does not tolerate well, causes increased diarrhea and abdominal pain. History Blood Transfusions/Intravenous Iron infusions: Yes; GI doctor Dr. Martinez at [facility] ordered last time in 2021 and received infusion here. Family History of Anemia/Blood Disorders: No Alcohol Use: No PAST MEDICAL HISTORY: PAST MEDICAL HISTORY Diagnosis Date ADHD (attention deficit hyperactivity disorder) Anemia Anxiety Blood disorder 12/2021 Crohn's disease (HCC) Depression Hypoproteinemia (HCC) Irritable bowel disease Keratoderma Migraine Ulcerative colitis (HCC) Patient reports she has not had migraines in a while. PAST SURGICAL HISTORY: PAST SURGICAL HISTORY Procedure Laterality Date COLONSCOPY SCREENING HIGH RISK LEEP PROCEDURE (W NOTE) LIGATE FALLOPIAN TUBE LMP one week ago; periods are light per patient and only last a few days. CURRENT MEDICATIONS: predniSONE (DELTASONE) 10 mg tablet Take 2 tablets by mouth once daily. risankizumab-rzaa (SKYRIZI) 360 mg/2.4 mL (150 mg/mL) wearable injector Inject 360 mg subcutaneously every 8 weeks. First dose at week 12, then every 8 weeks after that. clonazePAM (KLONOPIN) 0.5 mg tablet Take 0.5 mg by mouth twice daily as needed. desvenlafaxine ER (PRISTIQ) 50 mg 24 hr tablet Take 50 mg by mouth once daily. ALLERGIES: ALLERGIES No Known Allergies FAMILY HISTORY: FAMILY HISTORY Problem Relation Age of Onset Asthma Mother Hyperlipidemia Father other (Alchohol use) Father Heart disease Father Arthritis Father Mental illness Sister Mental illness Sister Asthma Maternal Grandmother Depression Maternal Grandmother Mental illness Maternal Grandmother other (other) Maternal Grandfather Hyperlipidemia Maternal Grandfather Alcohol abuse Paternal Grandmother Heart disease Paternal Grandfather Arthritis Paternal Grandfather Heart Attack Paternal Grandfather No family history of cancer, blood disorders, anemias. SOCIAL HISTORY: Social History Tobacco Use Smoking status: Former Current packs/day: 0.00 Types: Cigarettes Quit date: 12/01/2022 Years since quittin.7 Passive exposure: Past Smokeless tobacco: Never Vaping Use Vaping status: current everyday user Substances: Nicotine Devices: Disposable, Pre-filled or refillable cartridge Substance Use Topics Alcohol use: Yes Drug use: Not Currently Patient reports no alcohol use. REVIEW OF SYSTEMS GENERAL: +chills, patient attributes to chronic ice chewing. No weight loss, malaise or fevers. HEENT: No changes in hearing or vision, no nose bleeds or other nasal problems NECK: Negative for goiter, pain or significant neck swelling RESPIRATORY: Negative for cough, hemoptysis, wheezing, COPD, dyspnea or shortness of breath CARDIOVASCULAR: Negative for chest pain, leg swelling, hypertension, CHF or palpitations GI: +chronic severe diarrhea. Negative for constipation. : No history of dysuria, frequency or incontinence MUSCULOSKELETAL: Negative for joint pain or swelling, back pain or muscle pain SKIN: Negative for lesions, rash, and itching. PSYCH: Negative for sleep disturbance. HEMATOLOGY/LYMPHOLOGY: Negative for prolonged bleeding, bruising easily or swollen nodes. ENDOCRINE: Negative for cold or heat intolerance, polyuria or polydipsia. NEURO: +history of migraines. No history of syncope, paralysis, seizures or tremors The remainder of the review of systems is negative. PHYSICAL EXAMINATION: LMP 09/09/2024. BP 131/88 Pulse 114 Temp 36.5 C (97.7 F) (Temporal) Resp 16 Ht 167.6 cm (5' 5.98 ) Wt 94.4 kg (208 lb 1.8 oz) LMP 03/02/2023 SpO2 99% BMI 33.61 kg/m Gen: well-nourished, well-developed 44 year old woman in no acute distress who is alert and cooperative throughout the interview HEENT: normocephalic, atraumatic, PERRL, EOMI. Nodes: cervical, supraclavicular, axillary non-palpable Lungs: CTA without adventitial breath sounds Heart: RRR without murmurs, gallops or rubs Abdomen: soft, non-tender without masses. Musculoskeletal: no significant joint deformities Skin: no rashes, bruising or petechiae Extremities: non-cyanotic; no edema Neuro: CN II-XII grossly intact, motor/sensory exam grossly intact Psych: mood and affect normal Laboratory: 08/20/2024 (Lab [facility]) Ferritin - 4 TIBC - 396 UIBC - 381 Iron - 15 Iron Saturation - 4 WBC - 9.5 RBC - 4.38 Hemoglobin - 8.3 Hematocrit - 31.6 MCV - 72 MCH - 18.9 MCHC - 26.3 RDW - 16.8 Platelets - 516 Creatinine - 0.84 EGFR - 88 BUN/Creatinine ratio - 11 Calcium - 8.6 AST - 21 ALT - 19 Assessment and Plan: ASSESSMENT/PLAN: 1. Iron deficiency anemia due to chronic blood loss - ICD9: 280.0, ICD10: D50.0 (primary diagnosis) has iron deficiency anemia secondary to chronic GI blood loss from her ulcerative colitis. Recent labs (08/20/2024) indicate microcytic anemia with a hemoglobin of 8.3, MCV 72. Her ferritin 4, TIBC 396, Iron 15, iron sat 4%. She has not tolerated oral iron and will require IV Iron replacement. I did repeat patient's labs today to rule out other anemia causes. The patient will receive IV Venofer 200mg push x5 doses over the next 5 weeks for iron deficiency. Patient will return for follow-up and labs in 3 months. She will continue to follow up with GI for her treatment of her ulcerative colitis The patient's questions were answered to satisfaction. LUCIANA Moeller The patient was seen and examined by me with the student. The student's note was reviewed and modified as appropriate. Dilma Montes PA-C I spent a total of 30 minutes on the date of the service which included preparing to see the patient, [id number] patient care, completing clinical documentation, obtaining and/or reviewing separately obtained history, performing a medically appropriate examination, counseling and educating the patient/family/caregiver, ordering medications, tests, or procedures, communicating with other HCPs (not separately reported), independently interpreting results (not separately reported), communicating results to the patient/family/caregiver, and care coordination (not separately reported). CC: Beck Tee, DO [address] [facility] [address] [facility] [id number] documented in this encounter [facility] 09-17-2024 Note HNO ID: [id number] Author: DILMA MONTES PA-C Service: ? Author Type: Physician Scheduling Analyst Type: Progress Notes Filed: 09/17/2024 15:49 Note Text: [facility] CLINICAL CONSULTATION NOTE Hematologic Oncology and Blood Disorders PATIENT NAME: Angela Elam DATE OF SERVICE: September 17, 2024 The patient is referred by Beck Tee Jr. for further evaluation of iron deficiency anemia due to chronic blood loss. CHIEF COMPLAINT: Iron deficiency anemia due to chronic blood loss HISTORY OF THE PRESENT ILLNESS: Patient is a 44 year old woman presenting here to [facility] care. Patient's iron deficiency anemia was previously being treated by her GI doctor but has transferred her care to us. Her history of iron deficiency anemia due to chronic blood loss is attributed to the patient's ulcerative pancolitis. Patient was first diagnosed 7 years ago after having severe bloody diarrhea. Patient has been on many medications and none have helped. Patient reports that her diarrhea is worse in the morning with an average of 10 bowel movements per day, sometimes waking her up at night. Patient reports that she has not noticed blood in her stool since her last flare up which was a year and a half ago, and reports her flare ups involve severe bloody diarrhea. Patient reports she does not often have abdominal pain during the day. Patient also experiences chronic fatigue, ice chewing, dizziness and lightheadedness, thinning hair and chills. Symptoms: Fatigue: Yes Pica: Yes; in the past year SOB: No Chest Pain/Palpitations: No Lightheadedness: Yes Dizziness: Yes Headache: No Brittle hair/nails: Other; thinning hair Restless Legs: No Bleeding: Other; blood in stool Chills: Yes Difficulty concentrating/brain fog: No History of anemia: Yes Oral Iron History: Yes; does not tolerate well, causes increased diarrhea and abdominal pain. History Blood Transfusions/Intravenous Iron infusions: Yes; GI doctor Dr. Martinez at [facility] ordered last time in 2021 and received infusion here. Family History of Anemia/Blood Disorders: No Alcohol Use: No PAST MEDICAL HISTORY: PAST MEDICAL HISTORY Diagnosis Date ADHD (attention deficit hyperactivity disorder) Anemia Anxiety Blood disorder 12/2021 Crohn's disease (HCC) Depression Hypoproteinemia (HCC) Irritable bowel disease Keratoderma Migraine Ulcerative colitis (HCC) Patient reports she has not had migraines in a while. PAST SURGICAL HISTORY: PAST SURGICAL HISTORY Procedure Laterality Date COLONSCOPY SCREENING HIGH RISK LEEP PROCEDURE (W NOTE) LIGATE FALLOPIAN TUBE LMP one week ago; periods are light per patient and only last a few days. CURRENT MEDICATIONS: predniSONE (DELTASONE) 10 mg tablet Take 2 tablets by mouth once daily. risankizumab-rzaa (SKYRIZI) 360 mg/2.4 mL (150 mg/mL) wearable injector Inject 360 mg subcutaneously every 8 weeks. First dose at week 12, then every 8 weeks after that. clonazePAM (KLONOPIN) 0.5 mg tablet Take 0.5 mg by mouth twice daily as needed. desvenlafaxine ER (PRISTIQ) 50 mg 24 hr tablet Take 50 mg by mouth once daily. ALLERGIES: ALLERGIES No Known Allergies FAMILY HISTORY: FAMILY HISTORY Problem Relation Age of Onset Asthma Mother Hyperlipidemia Father other (Alchohol use) Father Heart disease Father Arthritis Father Mental illness Sister Mental illness Sister Asthma Maternal Grandmother Depression Maternal Grandmother Mental illness Maternal Grandmother other (other) Maternal Grandfather Hyperlipidemia Maternal Grandfather Alcohol abuse Paternal Grandmother Heart disease Paternal Grandfather Arthritis Paternal Grandfather Heart Attack Paternal Grandfather No family history of cancer, blood disorders, anemias. SOCIAL HISTORY: Social History Tobacco Use Smoking status: Former Current packs/day: 0.00 Types: Cigarettes Quit date: 12/01/2022 Years since quittin.7 Passive exposure: Past Smokeless tobacco: Never Vaping Use Vaping status: current everyday user Substances: Nicotine Devices: Disposable, Pre-filled or refillable cartridge Substance Use Topics Alcohol use: Yes Drug use: Not Currently Patient reports no alcohol use. REVIEW OF SYSTEMS GENERAL: +chills, patient attributes to chronic ice chewing. No weight loss, malaise or fevers. HEENT: No changes in hearing or vision, no nose bleeds or other nasal problems NECK: Negative for goiter, pain or significant neck swelling RESPIRATORY: Negative for cough, hemoptysis, wheezing, COPD, dyspnea or shortness of breath CARDIOVASCULAR: Negative for chest pain, leg swelling, hypertension, CHF or palpitations GI: +chronic severe diarrhea. Negative for constipation. : No history of dysuria, frequency or incontinence MUSCULOSKELETAL: Negative for joint pain or swelling, back pain or muscle pain SKIN: Negati (more content not included)... [facility] 09-17-2024 Telephone encounter Note Received the fax from Hermilo with PA approval for Skyrizi. Case # [id number] Auth # [id number] Will send fax for scanning. Melanie Lechuga RN [facility] 09-17-2024 Miscellaneous Notes Received the fax from Hermilo with PA approval for Daniel. Case # [id number] Auth # [id number] Will send fax for scanning. Melanie Lechuga RN Called the number for the Pharmcy Department, . Spoke to Ursula, Customer Media Production Operator. Explained that I have sent an appeal twice, both marked as urgent which should take up to 72 hours. We are on day 4 and I still haven't heard back. States she does not handle claims. Needs to connect me with provider services - option 2 - appeals and grievances. Spoke to Courtney. Stated she was in the PA department. She transferred me to Provider Services [phone]. This appeared to take me to the same prompt that I started when I originally called. Hung up and called , option 2, then option 4. Spoke to Al. States it is out of their scope. Needs to transfer me to appeals. States she doesn't have the direct phone number. Transferred call. Prompt stated thank you for calling '[facility]' Spoke to Lauren. Advised that original fax for appeal was sent on 09/09/24 and marked urgent. Second fax was sent on 09/13/24 and marked as urgent. Still have not heard back. States she is showing that on Sep 14, the denial was overturned. Letter was sent on . Asked Lauren to fax the letter to [place] [facility] [phone]. Should receive fax by the end of the day. Melanie Lechuga RN Total time transmission and coordination engineer: 40 minutes. Called the number for the Pharmcy Department, . Spoke to Junais. Asked why a P2P needs to be completed when a letter of medical necessity and clinical documentation was sent on . Provided the following information: Case # for appeal: [id number] Juanis reviewed the information they had which included clinical documents. Did not find letter of medical necessity that was sent on 09/09/24. I did receive confirmation that the fax went through when it was sent. It was also marked as urgent. This was still marked as standard timeframe. Asked for the fax so I could send the letter again. . Juanis said she would transfer call to [facility] ([phone]). States the need to leave voicemail and they will return call. Left voicemail and refaxed letter of medical necessity and clinical information. Also faxed fax confirmation from 09/09/24. Again received confirmation fax went through. Will await determination. Melanie Lechuga RN Images from the original note were not included. The following was noted in the patient's therapy plan on 09/10/24: Auth/Cert Note 09/10/2024 9:02 AM [employer] === PHARMACY TEAM ==== - Note: === PHARMACY TEAM ==== CASE TO REVIEW Date Received: 09/10/2024 Received by: Fax Emailed to: Lorin collazo Email Sent (Date & Time): 09/10/24 / 8:56 AM Reason for Review: appeal for P2P is received and additional clinical documents is needed. Can you please look in to this. As I had sent a fax with a letter of medical necessity along with clinicals to the patient's insurance, I reached out to the PA team. Jonathon Newell just talk with rep. and she told they did not received any additional clinicals and they don't even need additional clinicals. our provider need to call for peer to peer. on [phone] but from our side Im sending the clinicals again The following was also charted in a telephone encounter: === PHARMACY TEAM ==== PEER TO PEER/APPEAL REQUESTED PROVIDER TO COMPLETE Letter drafted and faxed along with OV note from 05/21/24. Melanie Lechuga RN Images from the original note were not included. Type Date User Summary Attachment Auth/Cert Note 09/09/2024 8:03 AM Kehinde Guardadoarg === PHARMACY TEAM ==== - Note: === PHARMACY TEAM ==== CASE TO REVIEW Date Received: 09/09/2024 Received by: Fax Emailed to: Jonathon Newell Email Sent (Date & Time): 09/09/24 / 8:02 AM Reason for Review: This request is denied for [id number] Looked [facility] Monoclonal Antibodies to Interleukin-23 CC-0050. It stated the following: Skyrizi (risankizumab-rzaa) Initial requests for Skyrizi (risankizumab-rzaa) may be approved for the following: III. Crohn s Disease (CD) when each of the following criteria are met: A. For individuals requesting intravenous induction doses: 1. Individual is 18 years of age or older with moderate to severe CD; AND 2. Individual has had an inadequate response to, or is intolerant of conventional therapy (such as systemic corticosteroids or immunosuppressants [such as thiopurines or methotrexate]); OR 3. Individual has a contraindication to systemiccorticosteroids or thiopurines or methotrexate; OR B. For individuals requesting subcutaneous maintenance therapy: 1. Individual is 18 years of age or older with moderate to severe CD; AND 2. Individual has completed the intravenous induction doses with Skyrizi and will be using subcutaneous Skyrizi for maintenance therapy; IV. Ulcerative colitis (UC) when the following criteria are met: A. For individuals requesting intravenous induction doses: 1. Individual is 18 years of age or older with moderate to severe UC; AND 2. Individual has had an inadequate response to or is intolerant of conventional therapy (such as 5-Aminosalicylic acid products, systemic corticosteroids, or immunosuppressants [such as thiopurines]); OR 3. Individual has a contraindication to 5-ASA products or systemic corticosteroids or thiopurines; OR B. For individuals requesting subcutaneous maintenance therapy: 1. Individual is 18 years of age or older with moderate to severe UC; AND 2. Individual has completed the intravenous induction doses with Skyrizi and will be using subcutaneous Skyrizi for maintenance therapy. Called the number for the Pharmcy Department, . Spoke to . Skyrizi code: [id number] Advised that the denial does not make sense. It does not appear that they reviewed the criteria for approval when UC was the diagnosis. [facility] started appeal. States we can fax further information and/or clinicals to [phone]. Auth #: [id number] Case # for appeal: [id number] Need to elke clinicals as urgent and we will receive a decision within 72 hours. Phone number for peer to peer is [phone], option 2. Melanie Lechuga RN Order signed. Thank you Dr. Martinez, Can you please review and sign pending order for Skyrizi OBI to start at week 12? Thanks! Melanie Lechuga RN Attempted to contact patient. No answer. Left voicemail advising that I was calling to see where she wanted to have her infusions done at. Left office phone number for patient to return call. Will send message as well. Melanie Lechuga RN Dr Martinez see patients reply Melanie, now that we have her labs, she can start Skyrizi. Can you find out where she would like to infuse? She will eventually need an EGD and colonoscopy. Exact timing will be determined by her responses to my message. If her symptoms are stable, then I hope to start Skyrizi robin, check a fecal calprotectin 3 months into treatment and scope her 6 months after treatment is started. These are her labs from [facility]. You ordered Hepatic Fx panel and CBC (ABNORMAL) CBC and differential (08/30/2024 4:31 PM EDT) Lab Results - (ABNORMAL) CBC and differential (08/30/2024 4:31 PM EDT) WBC 9.5 3.4 - 10.8 x10E3/uL [facility] RBC 4.38 3.77 - 5.28 x10E6/uL [facility] Hgb 8.3 (L) 11.1 - 15.9 g/dL [facility] Hct 31.6 (L) 34.0 - 46.6 % [facility] MCV 72 (L) 79 - 97 fL [facility] MCH 18.9 (L) 26.6 - 33.0 pg [facility] MCHC 26.3 (L) 31.5 - 35.7 g/dL [facility] RDW 16.8 (H) 11.7 - 15.4 % [facility] Platelets 516 (H) 150 - 450 x10E3/uL [facility] Neutrophils 82 Not Estab. % [facility] Lymphs 13 Not Estab. % [facility] Monocytes 4 Not Estab. % [facility] Eos 0 Not Estab. % [facility] Basos 0 Not Estab. % [facility] Neutrophils Abs 7.8 (H) 1.4 - 7.0 x10E3/uL [facility] Lymphs Abs 1.2 0.7 - 3.1 x10E3/uL [facility] MonocytesAbs 0.4 0.1 - 0.9 x10E3/uL [facility] Eos Abs 0.0 0.0 - 0.4 x10E3/uL [facility] Baso Abs 0.0 0.0 - 0.2 x10E3/uL [facility] Immature Granulocytes 1 Not Estab. % [facility] Immature Grans Abs 0.1 0.0 - 0.1 x10E3/uL [facility] (ABNORMAL) Comprehensive metabolic panel (08/30/2024 4:31 PM EDT) Lab Results - (ABNORMAL) Comprehensive metabolic panel (08/30/2024 4:31 PM EDT) Glucose CANCELED mg/dL [facility] Comment: Test not performed. Serum was in contact with cells when received which will make the result inaccurate. Result canceled by the ancillary. BUN 9 6 - 24 mg/dL [facility] Creat 0.84 0.57 - 1.00 mg/dL [facility] EGFR 88 >59 mL/min/1.73 [facility] BUN/Creat Ratio 11 9 - 23 [facility] Sodium 137 134 - 144 mmol/L [facility] Potassium CANCELED mmol/L [facility] Comment: Test not performed. Serum was in contact with cells when received which will make the result inaccurate. Result canceled by the ancillary. Chloride 105 96 - 106 mmol/L [facility] Carbon Dioxide 21 20 - 29 mmol/L [facility] Calcium 8.6 (L) 8.7 - 10.2 mg/dL [facility] Protein Total 6.7 6.0 - 8.5 g/dL [facility] Albumin 4.2 3.9 - 4.9 g/dL [facility] Globulin Total 2.5 1.5 - 4.5 g/dL [facility] Bili Total <0.2 0.0 - 1.2 mg/dL [facility] Alk Phosphatase 56 44 - 121 IU/L [facility] AST 21 0 - 40 IU/L [facility] ALT 19 0 - 32 IU/L [facility] (ABNORMAL) Iron and TIBC (08/30/2024 4:31 PM EDT) Lab Results - (ABNORMAL) Iron and TIBC (08/30/2024 4:31 PM EDT) [facility] Iron Bind.Cap.(TIBC) 396 250 - 450 ug/dL [facility] UIBC 381 131 - 425 ug/dL [facility] Iron 15 (L) 27 - 159 ug/dL [facility] Iron Saturation 4 (LL) 15 - 55 % [facility] (ABNORMAL) Ferritin (08/30/2024 4:31 PM EDT) Lab Results - (ABNORMAL) Ferritin (08/30/2024 4:31 PM EDT) [facility] Ferritin 4 (L) 15 - 150 ng/mL [facility] Vitamin B12 (08/30/2024 4:31 PM EDT) Lab Results - Vitamin B12 (08/30/2024 4:31 PM EDT) [facility] Vitamin B12 529 232 - 1,245 pg/mL [facility] Back to top of Lab Results Folate (08/30/2024 4:31 PM EDT) Lab Results - Folate (08/30/2024 4:31 PM EDT) [facility] Folate 12.6 >3.0 ng/mL [facility] Comment: A serum folate concentration of less than 3.1 ng/mL is considered to represent clinical deficiency. documented in this encounter [facility] 09-17-2024 Telephone encounter Note Called the number for the Pharmcy Department, . Spoke to Ursula, Customer Media Production Operator. Explained that I have sent an appeal twice, both marked as urgent which should take up to 72 hours. We are on day 4 and I still haven't heard back. States she does not handle claims. Needs to connect me with provider services - option 2 - appeals and grievances. Spoke to Courtney. Stated she was in the PA department. She transferred me to Provider Services [phone]. This appeared to take me to the same prompt that I started when I originally called. Hung up and called , option 2, then option 4. Spoke to Al. States it is out of their scope. Needs to transfer me to appeals. States she doesn't have the direct phone number. Transferred call. Prompt stated thank you for calling [facility]' Spoke to Lauren. Advised that original fax for appeal was sent on 09/09/24 and marked urgent. Second fax was sent on 09/13/24 and marked as urgent. Still have not heard back. States she is showing that on Sep 14, the denial was overturned. Letter was sent on . Asked Lauren to fax the letter [place] [facility] [phone]. Should receive fax by the end of the day. Melanie Lechuga RN Total time transmission and coordination engineer: 40 minutes. [facility] 09-13-2024 Telephone encounter Note Called the number for the Pharmcy Department, . Spoke to Juanis. Asked why a P2P needs to be completed when a letter of medical necessity and clinical documentation was sent on . Provided the following information: Case # for appeal: [id number] Juanis reviewed the information they had which included clinical documents. Did not find letter of medical necessity that was sent on 09/09/24. I did receive confirmation that the fax went through when it was sent. It was also marked as urgent. This was still marked as standard timeframe. Asked for the fax so I could send the letter again. . Juanis said she would transfer call to [facility] ([phone]). States the need to leave voicemail and they will return call. Left voicemail and refaxed letter of medical necessity and clinical information. Also faxed fax confirmation from 09/09/24. Again received confirmation fax went through. Will await determination. Melanie Lechuga RN T [facility] 09-13-2024 Telephone encounter Note Images from the original note were not included. The following was noted in the patient's therapy plan on 09/10/24: Auth/Cert Note 09/10/2024 9:02 AM [employer] === PHARMACY TEAM ==== - Note: === PHARMACY TEAM ==== CASE TO REVIEW Date Received: 09/10/2024 Received by: Fax Emailed to: Lorin collazo Email Sent (Date & Time): 09/10/24 / 8:56 AM Reason for Review: appeal for P2P is received and additional clinical documents is needed. Can you please look in to this. As I had sent a fax with a letter of medical necessity along with clinicals to the patient's insurance, I reached out to the PA team. Jonathon Newell just talk with rep. and she told they did not received any additional clinicals and they don't even need additional clinicals. our provider need to call for peer to peer. on [phone] but from our side Im sending the clinicals again The following was also charted in a telephone encounter: === PHARMACY TEAM ==== PEER TO PEER/APPEAL REQUESTED PROVIDER TO COMPLETE T [facility] 09-13-2024 Telephone encounter Note Images from the original note were not included. === PHARMACY TEAM ==== PEER TO PEER/APPEAL REQUESTED PROVIDER TO COMPLETE T [facility] 09-13-2024 Miscellaneous Notes Images from the original note were not included. === PHARMACY TEAM ==== PEER TO PEER/APPEAL REQUESTED PROVIDER TO COMPLETE documented in this encounter [facility] 09-10-2024 Telephone encounter Note Order signed. [facility] 09-10-2024 Miscellaneous Notes Order signed. Dr Martinez please sign if you agree Requested Prescriptions Pending Prescriptions Disp Refills predniSONE (DELTASONE) 10 mg tablet 60 tablet 4 Sig: Take 2 tablets by mouth once daily. Melanie please see patients message and advise on prior auth for Skyrizi documented in this encounter [facility] 09-10-[address] Martinez please sign if you agree Requested Prescriptions Pending Prescriptions Disp Refills predniSONE (DELTASONE) 10 mg tablet 60 tablet 4 Sig: Take 2 tablets by mouth once daily. Melanie please see patients message and advise on prior auth for Skyrizi [facility] 09-09-2024 Telephone encounter Note Letter drafted and faxed along with OV note from 05/21/24. Melanie Lechuga RN [facility] 09-09-2024 Telephone encounter Note Images from the original note were not included. Type Date User Summary Attachment Auth/Cert Note 09/09/2024 8:03 AM Zackary Guardado === PHARMACY TEAM ==== - Note: === PHARMACY TEAM ==== CASE TO REVIEW Date Received: 09/09/2024 Received by: Fax Emailed to: Carloskrystina Jonathon Email Sent (Date & Time): 09/09/24 8:02 AM Reason for Review: This request is denied for [id number] Looked up [facility] Monoclonal Antibodies to Interleukin-23 CC-0050. It stated the following: Skyrizi (risankizumab-rzaa) Initial requests for Skyrizi (risankizumab-rzaa) may be approved for the following: III. Crohn s Disease (CD) when each of the following criteria are met: A. For individuals requesting intravenous induction doses: 1. Individual is 18 years of age or older with moderate to severe CD; AND 2. Individual has had an inadequate response to, or is intolerant of conventional therapy (such as systemic corticosteroids or immunosuppressants [such as thiopurines or methotrexate]); OR 3. Individual has a contraindication to systemiccorticosteroids or thiopurines or methotrexate; OR B. For individuals requesting subcutaneous maintenance therapy: 1. Individual is 18 years of age or older with moderate to severe CD; AND 2. Individual has completed the intravenous induction doses with Skyrizi and will be using subcutaneous Skyrizi for maintenance therapy; IV. Ulcerative colitis (UC) when the following criteria are met: A. For individuals requesting intravenous induction doses: 1. Individual is 18 years of age or older with moderate to severe UC; AND 2. Individual has had an inadequate response to or is intolerant of conventional therapy (such as 5-Aminosalicylic acid products, systemic corticosteroids, or immunosuppressants [such as thiopurines]); OR 3. Individual has a contraindication to 5-ASA products or systemic corticosteroids or thiopurines; OR B. For individuals requesting subcutaneous maintenance therapy: 1. Individual is 18 years of age or older with moderate to severe UC; AND 2. Individual has completed the intravenous induction doses with Skyrizi and will be using subcutaneous Skyrizi for maintenance therapy. Called the number for the Pharmcy Department, . Spoke to . Skyrizi code: [id number] Advised that the denial does not make sense. It does not appear that they reviewed the criteria for approval when UC was the diagnosis. started appeal. States we can fax further information and/or clinicals to [phone]. Auth #: [id number] Case # for appeal: [id number] Need to elke clinicals as urgent and we will receive a decision within 72 hours. Phone number for peer to peer is [phone], option 2. Melanie Lechuga RN [facility] 09-06-2024 History of Present illness Narrative [facility] received prescription(s) for Skyrizi from Dr. Martinez's office. Benefits investigation was conducted, indicating that a prior authorization is required by patient's insurance plan [facility]. Encounter will be updated once prior authorization has been submitted by [facility]. Pt has not yet received infusion doses. Yuli James PharmD Clinical Pharmacist, [employer] [facility] ; Pool: [facility] Pool #: [id number] documented in this encounter [facility] 09-06-2024 Note HNO ID: [id number] Author: YULI JAMES RPh Service: ? Author Type: Pharmacist Type: Progress Notes Filed: 12/14/2024 12:59 Note Text: Skyrizi IV doses received on: Infusion doses completed: 10/05/24, 11/05/24, and 12/03/24. First subQ will be due 12/31/24 Rx has been profiled at [facility] (confirmed $0 copay) and patient will be contacted around 12/22/24 to set up first Skyrizi OBI shipment. Yuli James PharmD Clinical Pharmacist, [facility] ; Pool: [facility] Pool #: [id number] [facility] 09-06-2024 Note HNO ID: [id number] Author: MICAELA OZUNA [facility] Service: ? Author Type: Pharmacist Type: Progress Notes Filed: 11/25/2024 15:11 Note Text: Skyrizi OBI PA was initiated and pending review. Plan Name: Tevin Plan Agent/Garcia: [id number] / [id number] Timeline: Urgent Silke Ozuna PharmD Clinical Pharmacist, [employer] [facility] ; Pool: [facility] Pool #: [id number] [facility] 09-06-2024 Note HNO ID: [id number] Author: YULI JAMES [facility] Service: ? Author Type: Pharmacist Type: Progress Notes Filed: 09/06/2024 18:08 Note Text: [facility] received prescription(s) for Skyrizi from Dr. Martinez's office. Benefits investigation was conducted, indicating that a prior authorization is required by patient's insurance plan with [employer]. Encounter will be updated once prior authorization has been submitted by [facility]. Pt has not yet received infusion doses. Yuli James PharmD Clinical Pharmacist, [facility] ; Pool: [facility] Pool #: [id number] [facility] 09-06-2024 Note HNO ID: [id number] Author: YULI JAMES [facility] Service: ? Author Type: Pharmacist Type: Progress Notes Filed: 12/22/2024 11:35 Note Text: [facility] received prescription(s) for Skyrizi OBI from Dr. Martinez's office. Benefits investigation was conducted, indicating that a prior authorization is required. PA was approved with details listed below: Plan Name: Tevin ESCOBAR reference number: - Approval Dates: 12/14/24 - 12/13/25 Pt's copay is $0. Shipment has been arranged, and pt will receive medication(s) on 12/28/24. Pt has been instructed to follow-up with clinic to confirm start date. A full drug interaction report was conducted. I reviewed with appropriate dose and dosing frequency, administration directions (Inject 360 mg subcutaneously every 8 weeks.), potential side effects, ability to self-administer and proper storage and handling requirements. S/he expressed understanding of the information we provided today, and received our contact information for the pharmacy if s/he had any other questions. Office/provider notes have been reviewed prior to dispensing the medication. Infusion doses completed: 10/05/24, 11/05/24, and 12/03/24. First subQ will be due 12/31/24 Pt very familiar with injections. I reviewed this device is different and will send her detailed MCM to again outline the injection technique. Stressed to keep it in the fridge until she due on 12/31/24. All questions answered. PAST MEDICAL HISTORY Diagnosis Date ADHD (attention deficit hyperactivity disorder) Anemia Anxiety Blood disorder 12/2021 Crohn's disease (HCC) Depression Hypoproteinemia (HCC) Irritable bowel disease Keratoderma Migraine Ulcerative colitis (HCC) Current Outpatient Medications on File Prior to Visit Medication Sig risankizumab-rzaa (SKYRIZI) 360 mg/2.4 mL (150 mg/mL) wearable injector Inject 360 mg subcutaneously every 8 weeks. clonazePAM (KLONOPIN) 0.5 mg tablet Take 0.5 mg by mouth two times a day as needed for anxiety. No current facility-administered medications on file prior to visit. ALLERGIES No Known Allergies Problem List Noted Noted By Resolved Resolved By Obesity, Class I, BMI 30-34.9 10/01/2024 Yuriy Pack MD No Hypokalemia 09/29/2024 Jose Armando Sterling MD No Obesity 09/29/2024 Jose Armando Sterling MD No Ulcerative colitis with rectal bleeding (HCC) 09/29/2024 Jose Armando Sterling MD No Thrombocytosis 09/29/2024 Jose Armando Sterling MD No Clostridium difficile colitis 04/01/2023 Yuriy Pack MD No Ulcerative pancolitis without complication (HCC) 03/31/2023 Melania Currie APRN.COUNCILPERSON No Vapes nicotine containing substance 03/31/2023 Melania Currie APRN.COUNCILPERSON No Migraines 03/31/2023 Melania Currie APRN.COUNCILPERSON No Chronic neck pain 03/31/2023 JanMelania josue APRN.CNP No C. difficile colitis 03/31/2023 Melania Currie APRN.CNP No Nicotine use disorder, F17.2 03/31/2023 Yuriy Pack MD No Iron deficiency anemia due to chronic blood loss 12/25/2021 Jaxon Guzmán MD No Anxiety 05/19/2020 Melania Currie APRN.CNP No Cue Selector Assessment Patient confirmed: Yes Med/dose confirmed: Yes Supplies needed: Alcohol swabs, Sharps container, Welcome packet, Bandages Missed doses: No Estimated days supply on hand: 9 Next cycle/dose due: 12/31/24 Copay amount: 0 Delivery method: FedEx Signature required: Waived on patient request Delivery address: [address] [place] [address] [place] [address] Delivery date: 12/28/24 Questions or concerns for the pharmacist?: Yes Patient questions/concerns: Medication cost, Medication dose, Medication route, Medication storage, Side effects, Delivery Did you have any side effects believed to be related to this medication, that resulted in hospitalization?: No [facility] SPECIALTY CLINICAL ASSESSMENT - INFLAMMATORY CONDITIONS V6: Assessment to use: Initial Patient device teaching: No Teaching not complete reason: Clinical pharmacist assessed and patient understands injection technique and is appropriate candidate for self-injection Sun precaution recommendations (increased BCC risk in RA patients): N/A Diagnosis: Yes Prior therapy and current medication list (including drug interaction assessment): Yes Comorbidities: Yes Allergies: Yes Medical history: Yes Ability to properly self-adminster medication: Yes Therapeutic goals based on possible outcomes of therapy: Yes Does the patient have any additional functional limitations, dietary needs, or safety measures?: No Date of influenza vaccination reminder: 12/22/2024 Date of most recent vaccination assessment: 12/22/2024 Treatment Plan Information: Drug Name: Skyrizi Dose: 360mg/2.4mL OBI Directions: Inject 360 mg subcutaneously every 8 weeks. Diagnosis: (K51.00) Ulcerative pancolitis without complication (HCC) (primary encounter diagnosis) ADR: URI, ACE, fatigue Treatment History: Humira, Stelara, Entyvio, Zeposia, Remicaide Infusion doses completed: 1 (more content not included)... [facility] 09-06-2024 Note HNO ID: [id number] Author: YULI JAMES [facility] Service: ? Author Type: Pharmacist Type: Progress Notes Filed: 09/27/2024 09:48 Note Text: [facility] received Rx for Skyrizi OBI from Dr. Martinez's office. Chart review indicates that IV dose(s) were received or are scheduled to be received on 10/01, 10/29, and 11/26 . Based on this, first SQ dose will be due on 12/24/24. Prior auth submission will be delayed in order to best utilize the PA approval timeframe. Reminder has been set for [facility] to submit PA on/around 11/01/24. Yuli James PharmD Clinical Pharmacist, [employer] [facility] ; Pool: [facility] Pool #: [id number] [facility] 09-06-2024 Note HNO ID: [id number] Author: ?, ?, ? Service: ? Author Type: ? Type: Progress Notes Filed: 11/01/2024 08:28 Note Text: Skyrizi OBI PA was initiated and pending review. Plan Name: [facility] Garcia: [id number] Ursula Zamorano [facility] [phone] [facility] 09-06-2024 Note HNO ID: [id number] Author: MICAELA OZUNA RPh Service: ? Author Type: Pharmacist Type: Progress Notes Filed: 12/14/2024 08:35 Note Text: Skyrizi OBI PA was approved with details listed below. Plan Name: Tevin Approval Dates: 12/14/24 - 12/13/25 Prescriptions will now be processed through [facility] for determination of next steps. Silke Ozuna PharmD Clinical Pharmacist, [employer] [facility] ; Pool: [facility] Pool #: [id number] [facility] 09-06-2024 Telephone encounter Note Order signed. Thank you [facility] 09-02-[address] Martinez, Can you please review and sign pending order for Skyrizi OBI to start at week 12? Thanks! Melanie Lechuga RN [facility] 09-02-2024 Telephone encounter Note Attempted to contact patient. No answer. Left voicemail advising that I was calling to see where she wanted to have her infusions done at. Left office phone number for patient to return call. Will send message as well. Melanie Lechuga RN [facility] 09-02-[address] Martinez see patients MC reply [facility] 09-01-2024 Telephone encounter Note Melanie, now that we have her labs, she can start Skyrizi. Can you find out where she would like to infuse? She will eventually need an EGD and colonoscopy. Exact timing will be determined by her responses to my MC message. If her symptoms are stable, then I hope to start Skyrizi robin, check a fecal calprotectin 3 months into treatment and scope her 6 months after treatment is started. [facility] 09-01-2024 Telephone encounter Note These are her labs from [facility]. You ordered Hepatic Fx panel and CBC (ABNORMAL) CBC and differential (08/30/2024 4:31 PM EDT) Lab Results - (ABNORMAL) CBC and differential (08/30/2024 4:31 PM EDT) [facility] Signature WBC 9.5 3.4 - 10.8 x10E3/uL [facility] RBC 4.38 3.77 - 5.28 x10E6/uL [facility] Hgb 8.3 (L) 11.1 - 15.9 g/dL [facility] Hct 31.6 (L) 34.0 - 46.6 % [facility] MCV 72 (L) 79 - 97 fL [facility] MCH 18.9 (L) 26.6 - 33.0 pg [facility] MCHC 26.3 (L) 31.5 - 35.7 g/dL [facility] RDW 16.8 (H) 11.7 - 15.4 % [facility] Platelets 516 (H) 150 - 450 x10E3/uL [facility] Neutrophils 82 Not Estab. % [facility] Lymphs 13 Not Estab. % [facility] Monocytes 4 Not Estab. % [facility] Eos 0 Not Estab. % [facility] Basos 0 Not Estab. % [facility] Neutrophils Abs 7.8 (H) 1.4 - 7.0 x10E3/uL [facility] Lymphs Abs 1.2 0.7 - 3.1 x10E3/uL [facility] MonocytesAbs 0.4 0.1 - 0.9 x10E3/uL [facility] Eos Abs 0.0 0.0 - 0.4 x10E3/uL [facility] Baso Abs 0.0 0.0 - 0.2 x10E3/uL [facility] Immature Granulocytes 1 Not Estab. % [facility] Immature Grans Abs 0.1 0.0 - 0.1 x10E3/uL [facility] (ABNORMAL) Comprehensive metabolic panel (08/30/2024 4:31 PM EDT) Lab Results - (ABNORMAL) Comprehensive metabolic panel (08/30/2024 4:31 PM EDT) Glucose CANCELED mg/dL [facility] Comment: Test not performed. Serum was in contact with cells when received which will make the result inaccurate. Result canceled by the ancillary. BUN 9 6 - 24 mg/dL [facility] Creat 0.84 0.57 - 1.00 mg/dL [facility] EGFR 88 >59 mL/min/1.73 [facility] BUN/Creat Ratio 11 9 - 23 [facility] Sodium 137 134 - 144 mmol/L [facility] Potassium CANCELED mmol/L [facility] Comment: Test not performed. Serum was in contact with cells when received which will make the result inaccurate. Result canceled by the ancillary. Chloride 105 96 - 106 mmol/L [facility] Carbon Dioxide 21 20 - 29 mmol/L [facility] Calcium 8.6 (L) 8.7 - 10.2 mg/dL [facility] Protein Total 6.7 6.0 - 8.5 g/dL [facility] Albumin 4.2 3.9 - 4.9 g/dL [facility] Globulin Total 2.5 1.5 - 4.5 g/dL [facility] Bili Total <0.2 0.0 - 1.2 mg/dL [facility] Alk Phosphatase 56 44 - 121 IU/L [facility] AST 21 0 - 40 IU/L [facility] ALT 19 0 - 32 IU/L [facility] (ABNORMAL) Iron and TIBC (08/30/2024 4:31 PM EDT) Lab Results - (ABNORMAL) Iron and TIBC (08/30/2024 4:31 PM EDT) [facility] Iron Bind.Cap.(TIBC) 396 250 - 450 ug/dL [facility] UIBC 381 131 - 425 ug/dL [facility] Iron 15 (L) 27 - 159 ug/dL [facility] Iron Saturation 4 (LL) 15 - 55 % [facility] (ABNORMAL) Ferritin (08/30/2024 4:31 PM EDT) Lab Results - (ABNORMAL) Ferritin (08/30/2024 4:31 PM EDT) [facility] Ferritin 4 (L) 15 - 150 ng/mL [facility] Vitamin B12 (08/30/2024 4:31 PM EDT) Lab Results - Vitamin B12 (08/30/2024 4:31 PM EDT) [facility] Vitamin B12 529 232 - 1,245 pg/mL [facility] Back to top of Lab Results Folate (08/30/2024 4:31 PM EDT) Lab Results - Folate (08/30/2024 4:31 PM EDT) [facility] Folate 12.6 >3.0 ng/mL [facility] Comment: A serum folate concentration of less than 3.1 ng/mL is considered to represent clinical deficiency. [facility] Work Phone: 08-20-2024 History of Present illness Narrative Images from the original note were not included. SUBJECTIVE: Angela Elam is a 44 y.o. female presents with chief complaint of No chief complaint on file. Pt presents for a check in on her anxiety medication. She states that this is helping but it is not helping enough. Pt notes that she has been having some GI issues with diarrhea. Pt does have a hx of C-Diff and is wondering if this might be coming back. No other complaints at this time. Review of Systems: Review of Systems Problem List: Patient Active Problem List Diagnosis Anxiety Hypoproteinemia (CMS/HCC) Keratoderma Migraine without aura and without status migrainosus, not intractable (CMS/HCC) Ulcerative colitis (CMS/HCC) Chronic neck pain Iron deficiency anemia due to chronic blood loss Migraines (CMS/HCC) Nicotine use disorder Vapes nicotine containing substance Past Medical History: Past Medical History: Diagnosis Date ADHD (attention deficit hyperactivity disorder) (CMS/HCC) Age 9 Anemia 5 years ago Anxiety Depression (CMS/HCC) Inflammatory bowel disease 5 years Migraine (CMS/HCC) Visual impairment July 2023 Family History: Family History Problem Relation Name Age of Onset Asthma Mother Gayle Hyperlipidemia Father Davis Alcohol abuse Father Davis Arthritis Father Davis Heart disease Father Davis Heart disease Maternal Grandfather Will Arthritis Maternal Grandmother Phuong Depression Maternal Grandmother Phuong Mental illness Maternal Grandmother Phuong Alcohol abuse Paternal Grandfather Ar Arthritis Paternal Grandfather Ar Heart disease Paternal Grandfather Ar Alcohol abuse Paternal Grandmother Margarita Alcohol abuse Father's Sister Pascual Arthritis Father's Sister Pascual Alcohol abuse Father's Brother Sherif Arthritis Father's Brother Sherif Alcohol abuse Mother's Brother Sherif Arthritis Mother's Brother Sherif Mental illness Sister Keri Mental illness Sister Amna Allergies: No Known Allergies Surgical History: Past Surgical History: Procedure Laterality Date TUBAL LIGATION 7 years ago Social History: Social Determinants of Health Tobacco Use: Medium Risk (03/10/2024) Patient History Smoking Tobacco Use: Former Smokeless Tobacco Use: Never Passive Exposure: Not on file Alcohol Use: Alcohol Misuse (08/13/2023) AUDIT-C Frequency of Alcohol Consumption: Monthly or less Average Number of Drinks: 3 or 4 Frequency of Binge Drinking: Less than monthly Financial Resource Strain: Low Risk (08/13/2023) Overall Financial Resource Strain (CARDIA) Difficulty of Paying Living Expenses: Not very hard Food Insecurity: No Food Insecurity (08/13/2023) Hunger Vital Sign Worried About Running Out of Food in the Last Year: Never true Ran Out of Food in the Last Year: Never true Transportation Needs: No Transportation Needs (08/13/2023) PRAPARE - Transportation Lack of Transportation (Medical): No Lack of Transportation (Non-Medical): No Physical Activity: Not on file Stress: Stress Concern Present (08/13/2023) [employer] - Occupational Stress Questionnaire Feeling of Stress : Rather much Social Connections: Moderately Integrated (08/13/2023) Social Connection and Isolation Panel [NHANES] Frequency of Communication with Friends and Family: More than three times a week Frequency of Social Gatherings with Friends and Family: Patient declined Attends Congregational Services: 1 to 4 times per year Active Member of Clubs or Organizations: No Attends Club or Organization Meetings: Never Marital Status: Living with partner Intimate Partner Violence: Not At Risk (08/13/2023) Humiliation, Afraid, Rape, and Kick questionnaire Fear of Current or Ex-Partner: No Emotionally Abused: No Physically Abused: No Sexually Abused: No Depression: Not at risk (03/10/2024) PHQ-2 PHQ-2 Score: 1 Housing Stability: Low Risk (08/13/2023) Housing Stability Vital Sign Unable to Pay for Housing in the Last Year: No Number of Places Lived in the Last Year: 1 Unstable Housing in the Last Year: No Health Literacy: Not on file OBJECTIVE: Visit Vitals Smoking Status Former Physical Exam Constitutional: Appearance: Normal appearance. She is normal weight. HENT: Head: Normocephalic and atraumatic. Right Ear: Tympanic membrane normal. Mouth/Throat: Mouth: Mucous membranes are moist. Pharynx: Oropharynx is clear. Eyes: Extraocular Movements: Extraocular movements intact. Conjunctiva/sclera: Conjunctivae normal. Pupils: Pupils are equal, round, and reactive to light. Cardiovascular: Rate and Rhythm: Normal rate and regular rhythm. Pulses: Normal pulses. Pulmonary: Effort: Pulmonary effort is normal. Breath sounds: Normal breath sounds. No wheezing, rhonchi or rales. Abdominal: General: Bowel sounds are normal. Palpations: Abdomen is soft. There is no mass. Tenderness: There is no abdominal tenderness. Musculoskeletal: General: Normal range of motion. Cervical back: Normal range of motion and neck supple. No tenderness. Skin: General: Skin is warm and dry. Neurological: General: No focal deficit present. Mental Status: She is alert and oriented to person, place, and time. Psychiatric: Mood and Affect: Mood normal. Thought Content: Thought content normal. Judgment: Judgment normal. No results found for this or any previous visit (from the past 672 hour(s)). ASSESSMENT AND PLAN: Assessment/Plan Diagnoses and all orders for this visit: Anxiety Patient advised to return if symptoms worsen and/or persist despite treatment. - clonazePAM (KlonoPIN) 0.5 MG tablet; Take 1 tablet (0.5 mg) by mouth 2 (two) times a day as needed for anxiety for up to 10 days - desvenlafaxine (Pristiq) 100 MG 24 hr tablet; Take 1 tablet (100 mg) by mouth Daily Do not crush, chew, or split. - Comprehensive metabolic panel; Future - CBC and differential; Future Crohn's disease, unspecified, without complications (CMS/HCC) - methylPREDNISolone (Medrol Dospak) 4 MG tablets; Follow schedule on package instructions - Clostridium difficile,EIA; Future - Comprehensive metabolic panel; Future - CBC and differential; Future Other migraine without status migrainosus, not intractable (CMS/HCC) - Comprehensive metabolic panel; Future - CBC and differential; Future Iron deficiency anemia due to chronic blood loss Labs ordered today, will follow up when results available - Folate; Future - Vitamin B12; Future - Ferritin; Future - Iron and TIBC; Future - Comprehensive metabolic panel; Future - CBC and differential; Future Current moderate episode of major depressive disorder without prior episode (HCC) (CMS/HCC) Frontal sinusitis, unspecified chronicity - fluticasone (Flonase) 50 MCG/ACT nasal spray; Administer 2 sprays into each nostril Daily Shake gently. Before first use, prime pump. After use, clean tip and replace cap. Diarrhea of infectious origin - Clostridium difficile,EIA; Future - Comprehensive metabolic panel; Future - CBC and differential; Future - Clostridium difficile toxin; Future Updated Medications: I have reviewed and reconciled the history and medication list with the patient today. Current Outpatient Medications: clonazePAM (KlonoPIN) 0.5 MG tablet, Take 1 tablet (0.5 mg) by mouth 2 (two) times a day as needed for anxiety for up to 10 days, Disp: 20 tablet, Rfl: 0 cyclobenzaprine (Flexeril) 10 MG tablet, Take 1 tablet (10 mg) by mouth in the morning and 1 tablet (10 mg) in the evening and 1 tablet (10 mg) before bedtime., Disp: 40 tablet, Rfl: 1 desvenlafaxine (Pristiq) 50 MG 24 hr tablet, Take 1 tablet (50 mg) by mouth Daily Do not crush, chew, or split., Disp: 30 tablet, Rfl: 11 fluticasone (Flonase) 50 MCG/ACT nasal spray, Administer 2 sprays into each nostril in the morning. Shake gently. Before first use, prime pump. After use, clean tip and replace cap.., Disp: 16 g, Rfl: 11 ibuprofen 800 MG tablet, Take 1 tablet (800 mg) by mouth 3 (three) times a day as needed for mild pain, moderate pain or headaches, Disp: 40 tablet, Rfl: 1 predniSONE (Deltasone) 10 MG tablet, Take 10 mg by mouth Daily, Disp: , Rfl: Ubrogepant (Ubrelvy) 100 MG tablet, Take 1 tablet by mouth 1 (one) time each day at the same time 1 tab may take second dose at least 2 hrs after first dose as needed, Disp: , Rfl: documented in this encounter [facility] 05-21-2024 Instructions Mak Martinez MD - 05/21/2024 9:36 AM EDT Thank you for seeing me in the virtual clinic today. As we discussed, my recommendations are as follows: Please get fasting blood work done at your earliest convenience Resume prednisone at 20 mg every day Let's start you on Skyrizi. The recommended induction dosage of SKYRIZI is 600 mg administered by intravenous infusion over a period of at least one hour at Week 0, Week 4, and Week 8. The recommended maintenance dosage of SKYRIZI is 180 mg or 360 mg administered by subcutaneous injection at Week 12, and every 8 weeks thereafter. Schedule a DEXA (bone density) scan to make sure that steroids have not impacted your bone health significantly. See pre-test instructions below. Radiology [phone] Continue to minimize medication like Motrin as able Quit vaping Follow up with Dr. Jc in the future if and when you feel that you're ready to proceed with surgery. Please make a follow up visit with me in 4 months or sooner as needed for any new/worsening gastrointestinal symptoms If you have any questions about the above treatment plan, please do not hesitate to send me a [employer] message or call the [facility] at [phone] to route me a message. If you start feeling unwell or develop new/worsening gastrointestinal symptoms, especially if this occurs well before a future appointment, please call or message me directly for further instructions. BONE MINERAL DENSITY PATIENT INSTRUCTIONS ===== Bone mineral density testing measures the amount of calcium in certain parts of your bones. This information determines how strong your bones are. The test is used to detect osteoporosis, a disease in which the bone's mineral content and density are low, increasing a person's risk of fractures. The lumbar spine (lower back) and the hip are the skeletal sites usually examined. For the test, remember that: 1. You cannot take this test if you are . 2. Eat a normal diet on the day of the test. 3. Take your medications as you normally would. 4. DO NOT take calcium supplements (such as Tums) for 24 hours before the test. 5. On the day of the test, leave valuables (jewelry or credit cards) at home. 6. The test should be performed prior to oral, rectal or IV contrast studies, or at least 7 days after any of these studies. For the test, you may be asked to wear a hospital gown. You will lie on your back, on a padded table, in a comfortable position. Generally, you can resume your usual activities immediately. documented in this encounter [facility] 05-21-2024 History of Present illness Narrative VIRTUAL VISIT I have communicated my name and active licensure. The patient's identity and physical location were verified at the time of this visit. Either the patient or their legal small business sales representative has been informed of the risks and benefits of -- and alternatives to -- treatment through a remote evaluation and consents to proceed with the evaluation remotely. Angela Elam was informed that the details of this visit would be recorded as part of their electronic medical record. My recommendations will be conveyed to the consulting provider by way of shared electronic medical record, fax, or U.S. Mail. Patient location at time of call: Home Callback number: [phone] Connected at: 0912 Additional encounter participants and relationship: N/A REASON FOR VISIT: Ulcerative pancolitis PATIENT SUMMARY: Angela Elam is a 43 year old female with a history of tobacco use and recurrent C. Diff colitis (2018, 2022) who presents to the GI clinic for follow up of ulcerative pancolitis. She was diagnosed with UC in 2019 and has tried mesalamine, budesonide, Humira (didn't seem to work, had 3 injections), Entyvio x 1 year (afforded partial control), Stelara up to every 6 weeks and Zeposia (intolerable d/t visual disturbances). 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 diff twice on biologic therapy. Last GI OV was in 03/2023 to establish care for UC. Remicade was started. She had difficulty weaning off prednisone. Diarrhea worsened when she tapered below 20 mg/day. Infliximab levels were undetectable and her antibody titer was mildly positive (5.4) so her dose was increased from 5 to 10 mg q8wks and Imuran was added. She developed a rash while taking Imuran, so she decided to stop this and Remicade. Rash resolved after stopping Imuran. She saw Dr. Jc on 01/08/24 and was ready to proceed with surgery, but postponed this because she unexpectedly had to start taking care of her infant niece without much help at home. She has been on prednisone 10-20 mg/day as monotherapy for the better part of 2023, but stopped this 1 month ago. INTERVAL HISTORY: Her niece is now 9 months old. She had concerns about proceeding with surgery because she was told that she couldn't lift >10 lbs afterwards. Her daughters live in the [facility], but she doesn't have daily help at home. She is ready to try a new biologic. Currently averaging at least 10 stools/day. Diarrhea has been worse since she stopped prednisone, but 10 mg/day was not helping much. She saw blood in her stool a few days ago. She has also been having fecal urgency and intermittent incontinence. She still vapes daily. Does not drink alcohol. Takes Motrin 800 mg infrequently for headaches that do not respond to Tylenol. She recently got over shingles involving her left trunk. Recently, craving ice chips and dirt. Wonders if she's iron deficient. Past Clinical Workup: IFX Level and Antibody Level: 11/21/23: - Undetectable serum level. - Antibody - 5.4 U/mL Latest Ref Rng 03/30/2023 11/21/2023 CRP <0.9 mg/dL 6.3 (H) 1.2 (H) Latest Ref Rng 03/30/2023 03/31/2023 11/21/2023 Protein, Total 6.3 - 8.0 g/dL 6.2 (L) 5.9 (L) 6.2 (L) Albumin 3.9 - 4.9 g/dL 3.4 (L) 3.1 (L) 3.7 (L) Calcium 8.5 - 10.2 mg/dL 8.5 8.2 (L) 8.7 Bilirubin, Total 0.2 - 1.3 mg/dL <0.2 (L) 0.2 <0.2 (L) Alkaline Phosphatase 34 - 123 U/L 70 60 60 AST 13 - 35 U/L 17 14 10 (L) ALT 7 - 38 U/L 23 21 11 Glucose 74 - 99 mg/dL 94 130 (H) 108 (H) BUN 7 - 21 mg/dL 8 5 (L) 13 Creatinine 0.58 - 0.96 mg/dL 0.74 0.73 0.77 Sodium 136 - 144 mmol/L 139 139 142 Potassium 3.7 - 5.1 mmol/L 3.5 (L) 3.9 3.8 Chloride 97 - 105 mmol/L 105 106 (H) 108 (H) CO2 22 - 30 mmol/L 24 23 25 Anion Gap 9 - 18 mmol/L 10 10 9 eGFR >=60 mL/min/1.73m 104 105 98 Latest Ref Rng 04/02/2023 04/04/2023 11/21/2023 WBC 3.70 - 11.00 k/uL 6.51 9.08 7.54 RBC 3.90 - 5.20 m/uL 3.42 (L) 3.45 (L) 3.95 Hemoglobin 11.5 - 15.5 g/dL 10.2 (L) 10.4 (L) 11.0 (L) Hematocrit 36.0 - 46.0 % 32.0 (L) 33.3 (L) 34.5 (L) MCV 80.0 - 100.0 fL 93.6 96.5 87.3 MCH 26.0 - 34.0 pg 29.8 30.1 27.8 MCHC 30.5 - 36.0 g/dL 31.9 31.2 31.9 RDW-CV 11.5 - 15.0 % 13.0 12.7 12.4 Platelet Count 150 - 400 k/uL 314 329 318 Latest Ref Rng 03/30/2023 11/21/2023 C. difficile PCR Negative for C. difficile toxin by PCR Positive for C. difficile toxin by PCR ! Negative for C. difficile toxin by PCR Latest Ref Rng 03/30/2023 11/21/2023 Shigella spp./Enteroinvasive E.coli DNA Not Detected Not detected Not detected Campylobacter jejuni/coli DNA Not Detected Not detected Not detected Shiga toxin-producing gene(s) Not Detected Not detected Not detected Salmonella spp. DNA Not Detected Not detected Not detected Latest Ref Rng 11/21/2023 CALPROTECTIN, FECAL QUANTITATIVE <50 ug/g 1,490 (H) CALPROTECTIN, FECAL INTERP Normal Elevated ! Latest Ref Rng 04/05/2023 Vitamin B12 232 - 1,245 pg/mL 1,088 KUB: 04/04/23: Moderate stool in the colon Latest Ref Rng 04/03/2023 Vitamin D 25 Hydroxy 31.0 - 80.0 ng/mL 27.5 (L) Latest Ref Rng 04/03/2023 TB Nil <=8.00 IU/mL <0.00 TB1 Ag minus Nil <0.35 IU/mL 0.02 TB2 Ag minus Nil <0.35 IU/mL <0.00 TB Result Negative Mitogen minus Nil >=0.50 IU/mL 4.89 TB Interpretation Infection with M. tuberculosis complex is unlikely. If latent tuberculosis infection is highly suspected, a negative result does not rule out the infection. Specimens from immunocompromised patients and those <5 years of age may show false negative results. In case of a contact investigation, please repeat 8-12 weeks after a known exposure. Hep B Surface Ab, Qual Positive Positive Hep B Surf Ab Quant >=12.00 mIU/mL 305.10 Occult Blood Exam Screen Negative Positive ! WSR 0 - 20 mm/hr 52 (H) Hepatitis A IgG Negative Negative TPMT Activity 24.0 - 44.0 U/mL 29.2 Hep B Core Ab, Total Negative Negative Hep B Surface Ag Negative Negative Sigmoidoscopy: 04/01/23: Dr. Roberto: for bloody diarrhea, UC surveillance: - Perianal skin tags found on perianal exam. - Pseudomembranous colitis. - Severe (Vanessa Score 3) ulcerative colitis. Biopsied. Path: A. Sigmoid colon, biopsy: - Chronic active colitis with ulcer exudate. - Negative for dysplasia. B. Rectum, biopsy: - Chronic active proctitis. - Negative for dysplasia. KUB: 03/31/23: No bowel obstruction or definite visualization of inflammation. CTAP w/IV con: 03/30/23: Findings consistent with colitis. Colon: 10/15/21: Dr. Yusuf: - Severe active ulcerative pancolitis with pseudopoyposis Prep was good Recommendations: Continue budesonide and Stelara Path: Chronic active colitis ALLERGIES No Known Allergies PAST MEDICAL HISTORY Diagnosis Date Blood disorder 12/2021 Ulcerative colitis (HCC) PAST SURGICAL HISTORY Procedure Laterality Date COLONSCOPY SCREENING HIGH RISK LEEP PROCEDURE (W NOTE) LIGATE FALLOPIAN TUBE FAMILY HISTORY Problem Relation Age of Onset Heart Attack Paternal Grandfather Social History Tobacco Use Smoking status: Former Types: Cigarettes Quit date: 12/01/2022 Years since quittin.4 Smokeless tobacco: Never Vaping Use Vaping Use: current everyday user Substances: Nicotine Devices: Disposable, Pre-filled or refillable cartridge Substance Use Topics Alcohol use: Not Currently Drug use: Not Currently Current Outpatient Medications Medication Sig predniSONE (DELTASONE) 10 mg tablet Take 2 tablets by mouth once daily. metroNIDAZOLE (FLAGYL) 500 mg tablet Take 1 tablet by mouth three times a day. Take 1 tablet at 6pm, 7pm, and 11pm, the evening prior to surgery. neomycin 500 mg tablet Take 2 tablets by mouth as directed. Take 2 tablet at 6pm, 7pm, and 11pm the evening prior to surgery. azaTHIOprine (IMURAN) 50 mg tablet Take 1 tablet by mouth once daily for 30 days, THEN 2 tablets once daily. escitalopram oxalate (LEXAPRO ORAL) Take 40 mg by mouth. UBRELVY 100 mg tablet TAKE 1 TABLET BY MOUTH MAY TAKE 2ND DOSE AT LEAST 2 HOURS AFTER NEEDED ONCE DAILY clonazePAM (KLONOPIN) 0.5 mg tablet Take 0.5 mg by mouth twice daily as needed. No current facility-administered medications for this visit. I have confirmed and edited, if necessary, the PFSH obtained by others. REVIEW OF SYSTEMS CONSTITUTIONAL: +fatigue; Negative for unintentional weight loss, malaise or fevers HEENT: Negative for frequent/significant headaches, changes in hearing/vision, nose bleeds or other nasal problems RESPIRATORY: +dyspnea with exertion; Negative for cough, hemoptysis, wheezing or dyspnea CARDIOVASCULAR: Negative for chest pain, palpitations, syncope or lightheadedness GI: See HPI : Negative for dysuria, polyuria, incontinence or hematuria MUSCULOSKELETAL: Negative for arthralgia or myalgia INTEGUMENTARY/SKIN: Negative for rash or skin lesion HEMATOLOGY/LYMPHOLOGY: Negative for prolonged bleeding, easy bruising or swollen nodes ENDOCRINE: Negative for cold/heat intolerance, polydipsia or goiter NEURO: Negative for encephalopathy, tremor or gait abnormality PSYCH: Negative for new changes in mood or affect PHYSICAL FINDINGS OF NOTE: General - Normal, healthy, cooperative, in no acute distress Able to interact verbally by video conference Psych - ORIENTATION: normal to time place, person and situation AFFECT AND MOOD: Normal Head/Neuro - Normal size and shape, facial appearance normal Pulmonary - Normal respiratory effort Cardiovascular - No sternal heave; no described palpitations or lower extremity edema Abdominal - Flat Visible protrusions or hernias: No Incisions/scars: None Areas of pain/tenderness: Denies Skin - Abnormal lesions not visualized Motor - Patient seen sitting with normal appearing strength and coordination ASSESSMENT/PLAN: Angela Elam is a 43 year old female with a history of tobacco use and recurrent C. Diff colitis (2018, 2022) who presents to the GI clinic for follow up of ulcerative pancolitis. 1) Ulcerative pancolitis Duration of symptoms: 2018 Extent: Bruce-colonic involvement Disease severity: Severe Current disease status: Active Current treatment: None Prior treatment: Mesalamine (ineffective), Humira (no response after 3 injections), Entyvio x 1 year (partial control), Stelara every 6 weeks (lost response), Zeposia (intolerable d/t visual disturbances, stopped 1 month ago), Remicade (developed antibodies), Imuran (rash) Prior luminal surgery: No History of colonic dysplasia: No Extraintestinal manifestations: IBD arthropathy (currently asymptomatic) was initially considering colectomy to manage her severe, medically-refractory UC. However, she unexpectedly found herself having to take care of her niece and had concerns about post-operative recovery since she lives at home without daily assistance. Until surgery becomes an option for her, she would like to try another therapy for UC. She would like to proceed with Skyrizi. Risk and benefits were reviewed at length today --Start Skyrizi INDUCTION: 600 mg IV at week 0, 4 and 8 MAINTENANCE: 360 mg SC at week 12 and every 8 weeks thereafter --Labs (CBC, CMP, CRP, B12, vitamin D, ferritin, iron studies) --Resume prednisone 20 mg/day --DEXA scan --Avoid NSAIDs --Quit vaping --Follow up with Dr. Jc in the [facility] if circumstances change and surgery becomes feasible Follow up in 4-6 months Mak Martinez MD Department of Gastroenterology and Hepatology [facility] [employer] This note was partially generated using [employer] voice recognition system, and there may be some incorrect words, spellings, and punctuation that were not noted in checking the note before saving. documented in this encounter [facility] 05-21-2024 Note HNO ID: [id number] Author: MELANIE LECHUGA RN Service: ? Author Type: Physician Type: Progress Notes Filed: 09/09/2024 13:40 Note Text: VIRTUAL VISIT I have communicated my name and active licensure. The patient's identity and physical location were verified at the time of this visit. Either the patient or their legal small business sales representative has been informed of the risks and benefits of -- and alternatives to -- treatment through a remote evaluation and consents to proceed with the evaluation remotely. Angela Elam was informed that the details of this visit would be recorded as part of their electronic medical record. My recommendations will be conveyed to the consulting provider by way of shared electronic medical record, fax, or U.S. Mail. Patient location at time of call: Home Callback number: [phone] Connected at: 0912 Additional encounter participants and relationship: N/A REASON FOR VISIT: Ulcerative pancolitis PATIENT SUMMARY: Angela Elam is a 43 year old female with a history of tobacco use and recurrent C. Diff colitis (2018, 2022) who presents to the GI clinic for follow up of ulcerative pancolitis. She was diagnosed with UC in 2018 and has tried mesalamine, budesonide, Humira (didn't seem to work, had 3 injections), Entyvio x 1 year (afforded partial control), Stelara up to every 6 weeks and Zeposia (intolerable d/t visual disturbances). 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 diff twice on biologic therapy. Last GI OV was in 03/2023 to establish care for UC. Remicade was started. She had difficulty weaning off prednisone. Diarrhea worsened when she tapered below 20 mg/day. Infliximab levels were undetectable and her antibody titer was mildly positive (5.4) so her dose was increased from 5 to 10 mg q8wks and Imuran was added. She developed a rash while taking Imuran, so she decided to stop this and Remicade. Rash resolved after stopping Imuran. She saw Dr. Jc on 01/08/24 and was ready to proceed with surgery, but postponed this because she unexpectedly had to start taking care of her niece without much help at home. She has been on prednisone 10-20 mg/day as monotherapy for the better part of 2023, but stopped this 1 month ago. INTERVAL HISTORY: Her niece is now 9 months old. She had concerns about proceeding with surgery because she was told that she couldn't lift >10 lbs afterwards. Her daughters live in the [place] area, but she doesn't have daily help at home. She is ready to try a new biologic. Currently averaging at least 10 stools/day. Diarrhea has been worse since she stopped prednisone, but 10 mg/day was not helping much. She saw blood in her stool a few days ago. She has also been having fecal urgency and intermittent incontinence. She still vapes daily. Does not drink alcohol. Takes Motrin 800 mg infrequently for headaches that do not respond to Tylenol. She recently got over shingles involving her left trunk. Recently, craving ice chips and dirt. Wonders if she's iron deficient. Past Clinical Workup: IFX Level and Antibody Level: 11/21/23: - Undetectable serum level. - Antibody - 5.4 U/mL Latest Ref Rng 03/30/2023 11/21/2023 CRP <0.9 mg/dL 6.3 (H) 1.2 (H) Latest Ref Rng 03/30/2023 03/31/2023 11/21/2023 Protein, Total 6.3 - 8.0 g/dL 6.2 (L) 5.9 (L) 6.2 (L) Albumin 3.9 - 4.9 g/dL 3.4 (L) 3.1 (L) 3.7 (L) Calcium 8.5 - 10.2 mg/dL 8.5 8.2 (L) 8.7 Bilirubin, Total 0.2 - 1.3 mg/dL <0.2 (L) 0.2 <0.2 (L) Alkaline Phosphatase 34 - 123 U/L 70 60 60 AST 13 - 35 U/L 17 14 10 (L) ALT 7 - 38 U/L 23 21 11 Glucose 74 - 99 mg/dL 94 130 (H) 108 (H) BUN 7 - 21 mg/dL 8 5 (L) 13 Creatinine 0.58 - 0.96 mg/dL 0.74 0.73 0.77 Sodium 136 - 144 mmol/L 139 139 142 Potassium 3.7 - 5.1 mmol/L 3.5 (L) 3.9 3.8 Chloride 97 - 105 mmol/L 105 106 (H) 108 (H) CO2 22 - 30 mmol/L 24 23 25 Anion Gap 9 - 18 mmol/L 10 10 9 eGFR >=60 mL/min/1.73m? 104 105 98 Latest Ref Rng 04/02/2023 04/04/2023 11/21/2023 WBC 3.70 - 11.00 k/uL 6.51 9.08 7.54 RBC 3.90 - 5.20 m/uL 3.42 (L) 3.45 (L) 3.95 Hemoglobin 11.5 - 15.5 g/dL 10.2 (L) 10.4 (L) 11.0 (L) Hematocrit 36.0 - 46.0 % 32.0 (L) 33.3 (L) 34.5 (L) MCV 80.0 - 100.0 fL 93.6 96.5 87.3 MCH 26.0 - 34.0 pg 29.8 30.1 27.8 MCHC 30.5 - 36.0 g/dL 31.9 31.2 31.9 RDW-CV 11.5 - 15.0 % 13.0 12.7 12.4 Platelet Count 150 - 400 k/uL 314 329 318 Latest Ref Rng 03/30/2023 11/21/2023 C. difficile PCR Negative for C. difficile toxin by PCR Positive for C. difficile toxin by PCR ! Negative for C. difficile toxin by PCR Latest Ref Rng 03/30/2023 11/21/2023 Shigella spp./Enteroinvasive E.coli DNA Not Detected Not detected Not detected Campylobacter jejuni/coli DNA Not Detected Not detected Not detected Shiga toxin-producing gene(s) Not Detected Not detected Not detected Salmonella spp. DNA Not Detected Not detected Not detected Latest Ref Rng 11/21/2023 CALPROTECTIN, FECAL Q (more content not included)... [facility] 04-12-2024 Telephone encounter Note 3rd attempt Left message to call office. 04/12/2024 11:09 AM [facility] 04-12-2024 Miscellaneous Notes 3rd attempt Left message to call office. 04/12/2024 11:09 AM 2nd attempt Left message to call office. 04/09/2024 11:41 AM Adri Rea 1st attempt Left message to call office. 04/08/2024 12:51 PM Adri Rea OK to schedule for VV within the next 2 months to discuss next steps and ideal timing of surgery. Thanks Melanie Called and spoke to patient. Patient states that ideally she wants to have the surgery, but she is caring for a 7 month old now, so that currently is not an option. Patient doesn't particularly want to go back on a biologic medication as these have not worked well for her. Her plan was to remain on the prednisone for now as that is the only thing that seems to work for her. Reviewed message from Dr. Martinez with patient. Advised that remaining on prednisone long-term is not a safe option. Advised patient that Dr. Martinez would likely want to put her back on a biologic medication to buy time until she is able to have the surgery. Advised she should schedule OV with Dr. Martinez. Patient states she does not work on Fridays. States she gets off of work at 3:30 and lives about an hour away. States she would be able to do a virtual visit if that is an option. Dr. Martinez, please advise. Melanie Lechuga, [place] Melanie, can you please call and discuss the plan of care? She has not followed up with colorectal surgery regarding surgical management for UC. Surgery was initially planned, but she postponed this. Last we spoke, she was not interested in proceeding with biologic therapy (Remicade was recommended). I am not comfortable providing more than a 2-month supply of low-dose prednisone until there is some long-term plan in place. This might include pursuing definitive medical therapy, surgery or at the very least making an office visit to discuss options. Long-term use of prednisone can cause significant side effects and is probably not controlling all of her colon inflammation. This active inflammation increases her risk for flares requiring hospitalization / urgent surgeries and even colon cancer in the future. Dr Martinez- please sign refill if you agree. Patient sent message to request refill Last OV 04/07/2023 No follow up scheduled 1) Ulcerative pancolitis Duration of symptoms: 2019 Extent: Bruce-colonic involvement Disease severity: Severe Current disease status: Active, improving on prednisone Current treatment: Prednisone 40 mg/day Prior treatment: Mesalamine, (ineffective), budesonide, Humira (switched to Entyvio, but only had 3 injections - unclear if there was enough time for response), Entyvio x 1 year (partial control), Stelara every 6 weeks (lost response) and Zemposia (intolerable d/t visual disturbances, stopped 1 month ago). Requested Prescriptions Pending Prescriptions Disp Refills predniSONE (DELTASONE) 10 mg tablet 30 tablet 1 Sig: Take 1 tablet by mouth once daily. documented in this encounter [facility] 04-09-2024 Telephone encounter Note 2nd attempt Left message to call office. 04/09/2024 11:41 AM Adri Rea [facility] 04-08-2024 Telephone encounter Note 1st attempt Left message to call office. 04/08/2024 12:51 PM Adri Rea [facility] 04-07-2024 Telephone encounter Note OK to schedule for VV within the next 2 months to discuss next steps and ideal timing of surgery. Kaity Bennett [facility] 04-07-2024 Telephone encounter Note Called and spoke to patient. Patient states that ideally she wants to have the surgery, but she is caring for a 7 month old now, so that currently is not an option. Patient doesn't particularly want to go back on a biologic medication as these have not worked well for her. Her plan was to remain on the prednisone for now as that is the only thing that seems to work for her. Reviewed message from Dr. Martinez with patient. Advised that remaining on prednisone long-term is not a safe option. Advised patient that Dr. Martinez would likely want to put her back on a biologic medication to buy time until she is able to have the surgery. Advised she should schedule OV with Dr. Martinez. Patient states she does not work on Fridays. States she gets off of work at 3:30 and lives about an hour away. States she would be able to do a virtual visit if that is an option. Dr. Martinez, please advise. Melanie Lechuga RN [facility] 04-06-2024 Telephone encounter Note Melanie, can you please call and discuss the plan of care? She has not followed up with colorectal surgery regarding surgical management for UC. Surgery was initially planned, but she postponed this. Last we spoke, she was not interested in proceeding with biologic therapy (Remicade was recommended). I am not comfortable providing more than a 2-month supply of low-dose prednisone until there is some long-term plan in place. This might include pursuing definitive medical therapy, surgery or at the very least making an office visit to discuss options. Long-term use of prednisone can cause significant side effects and is probably not controlling all of her colon inflammation. This active inflammation increases her risk for flares requiring hospitalization / urgent surgeries and even colon cancer in the future. [facility] 04-06-[address] Martinez- please sign refill if you agree. Patient sent message to request refill Last OV 04/07/2023 No follow up scheduled 1) Ulcerative pancolitis Duration of symptoms: 2019 Extent: Bruce-colonic involvement Disease severity: Severe Current disease status: Active, improving on prednisone Current treatment: Prednisone 40 mg/day Prior treatment: Mesalamine, (ineffective), budesonide, Humira (switched to Entyvio, but only had 3 injections - unclear if there was enough time for response), Entyvio x 1 year (partial control), Stelara every 6 weeks (lost response) and Zemposia (intolerable d/t visual disturbances, stopped 1 month ago). Requested Prescriptions Pending Prescriptions Disp Refills predniSONE (DELTASONE) 10 mg tablet 30 tablet 1 Sig: Take 1 tablet by mouth once daily. [facility] 02-09-2024 Miscellaneous Notes Looks as if pt did a taper. Then was put on this 10mg 2 months ago. She saw Dr. Jc and pt decided to put off surgery for personal reasons. Would you like her to continue the 10mg? Requested Prescriptions Pending Prescriptions Disp Refills predniSONE (DELTASONE) 10 mg tablet 30 tablet 1 Sig: Take 1 tablet by mouth once daily. documented in this encounter [facility] 01-08-2024 Nurse Note Education packet given for a lx total colectomy with end ileostomy on February 22. She will call the office next week to confirm her surgery date after she speaks with her family. Discussed pre op instructions in detail. She will also need to schedule an appointment with Adriane Do NP for stoma marking and education. She has no other questions or concerns at this time. documented in this encounter [facility] 01-08-2024 History of Present illness Narrative COLORECTAL SURGERY January 08, 2024 Angela Elam This consult was requested by Dr. Mak Martinez and my final recommendations will be communicated to the requesting health care provider by way of the shared medical record for internal providers or letter via the [employer] for external providers. Chief Complaint: ulcerative colitis History of Present Illness: Angela Elam is a 43 year old female presents to the office for evaluation of ulcerative colitis. She has a history of tobacco use and recurrent C. Diff colitis (in 2019 and again in 03/2023). She is currently on a prednisone, but for prior treatments has used Mesalamine, (ineffective), budesonide, Humira (switched to Entyvio, but only had 3 injections - unclear if there was enough time for response), Entyvio x 1 year (partial control), Stelara every 6 weeks (lost response) and Zemposia (intolerable d/t visual disturbances). She was recently hospitalized at [place] between 03/30-04/05 for bloody diarrhea. Although she was C. Diff PCR (+), toxin (-), she was treated with oral vancomycin. Number of BMs daily: 10-15 with cramps, urgency. Hematochezia: yes FI: yes Weight loss in the last 6 months: weight gain Prior meds: Humira, stelara, zeposia, remicade Current meds: Prednisone GI: Michelle Initial diagnosis: 6 years ago Location: Pancolitis PMH: n/a PSH: tubal ligation Current or former smoker: quit one year ago CT abdomen/pelvis on 03/30/23: IMPRESSION: Findings consistent with colitis. Sigmoidoscopy on 04/01/[address] Isadora Roberto - Perianal skin tags found on perianal exam. - Pseudomembranous colitis. - Severe (Vanessa Score 3) ulcerative colitis. Biopsied. Pathology: A. Sigmoid colon, biopsy: - Chronic active colitis with ulcer exudate. - Negative for dysplasia. B. Rectum, biopsy: - Chronic active proctitis. - Negative for dysplasia. Colonoscopy on 10/15/[address] Bill Ysuuf - severely active ulcerative pancolitis with pseudopolyposis, biopsies obtained. View External Procedures - Colonoscopy [ID [id number]] Pathology: -chronic active colitis with ulcer Scan on 11/19/2021 9:18 AM by Provider, Mati, JASPAL: Pathology PAST MEDICAL HISTORY Diagnosis Date Blood disorder 12/2021 Ulcerative colitis (HCC) PAST SURGICAL HISTORY Procedure Laterality Date COLONSCOPY SCREENING HIGH RISK LEEP PROCEDURE (W NOTE) LIGATE FALLOPIAN TUBE Current Outpatient Medications Medication Sig Dispense Refill predniSONE (DELTASONE) 10 mg tablet Take 1 tablet by mouth once daily. 30 tablet 1 azaTHIOprine (IMURAN) 50 mg tablet Take 1 tablet by mouth once daily for 30 days, THEN 2 tablets once daily. 150 tablet 0 escitalopram oxalate (LEXAPRO ORAL) Take 40 mg by mouth. UBRELVY 100 mg tablet TAKE 1 TABLET BY MOUTH MAY TAKE 2ND DOSE AT LEAST 2 HOURS AFTER NEEDED ONCE DAILY clonazePAM (KLONOPIN) 0.5 mg tablet Take 0.5 mg by mouth twice daily as needed. No current facility-administered medications for this visit. ALLERGIES No Known Allergies FAMILY HISTORY Problem Relation Age of Onset Heart Attack Paternal Grandfather Social History Tobacco Use Smoking status: Former Types: Cigarettes Quit date: 12/01/2022 Years since quittin.1 Smokeless tobacco: Never Vaping Use Vaping Use: current everyday user Substances: Nicotine Devices: Disposable, Pre-filled or refillable cartridge Substance Use Topics Alcohol use: Not Currently Drug use: Not Currently Physical Exam: Ht 167.6 cm (5' 6 ) Wt 94 kg (207 lb 3.7 oz) LMP 03/09/2023 BMI 33.45 kg/m General Appearance: Well appearing, alert, in no acute distress, well-hydrated, well nourished. Abdomen: soft ND NT Assessment Assessment and Plan: Angela Elam is a 43 year old female with ulcerative pancolitis refractory to medication currently on steroids who presents to discuss surgical options. Three stage TPC, IPAA with goal of getting off steroids prior to proctectomy. We discussed risks of surgery and expected bowel function after a pouch. Stoma RN consultation We discussed the risks and benefits of surgery including injury to other structures, bleeding, infection, return to the OR, ileus, as well as the possibility of medical complications of surgery including DVT/PE, PNA, [place], stroke, and . The patient understands these risks and is in agreement with proceeding. Medical Decision Making: Data Reviewed: Tests & Documents Reviewed/ordered: Review of prior notes from GI Review of Pathology Review of Imaging: CT Abdomen, CT Pelvis Review of Labs: CBC, BMP Review of Procedures / Tests: Colonoscopy, Flexible Sigmoidoscopy I have independently interpreted: CT Abdomen, CT Pelvis with pancolitis I have discussed Angela Elam's treatment plan and/or results with the patient, Dr. Martinez. I spent a total of 60 minutes on the date of the service which included preparing to see the patient, [id number] patient care, completing clinical documentation, obtaining and/or reviewing separately obtained history, performing a medically appropriate examination, counseling and educating the patient/family/caregiver, ordering medications, tests, or procedures, communicating with other HCPs (not separately reported), independently interpreting results (not separately reported), communicating results to the patient/family/caregiver, and care coordination (not separately reported). Sonia Jc MD Colorectal Surgery documented in this encounter [facility] 01-08-2024 Note HNO ID: [id number] Author: SONIA JC MD Service: ? Author Type: Physician Type: Progress Notes Filed: 01/09/2024 16:49 Note Text: COLORECTAL SURGERY January 08, 2024 Angela Elam This consult was requested by Dr. Mak Martinez and my final recommendations will be communicated to the requesting health care provider by way of the shared medical record for internal providers or letter via the [employer] for external providers. Chief Complaint: ulcerative colitis History of Present Illness: Angela Elam is a 43 year old female presents to the office for evaluation of ulcerative colitis. She has a history of tobacco use and recurrent C. Diff colitis (in 2019 and again in 03/2023). She is currently on a prednisone, but for prior treatments has used Mesalamine, (ineffective), budesonide, Humira (switched to Entyvio, but only had 3 injections - unclear if there was enough time for response), Entyvio x 1 year (partial control), Stelara every 6 weeks (lost response) and Zemposia (intolerable d/t visual disturbances). She was recently hospitalized at [place] between 03/30-04/05 for bloody diarrhea. Although she was C. Diff PCR (+), toxin (-), she was treated with oral vancomycin. Number of BMs daily: 10-15 with cramps, urgency. Hematochezia: yes FI: yes Weight loss in the last 6 months: weight gain Prior meds: Humira, stelara, zeposia, remicade Current meds: Prednisone GI: Sadik Initial diagnosis: 6 years ago Location: Pancolitis PMH: n/a PSH: tubal ligation Current or former smoker: quit one year ago CT abdomen/pelvis on 03/30/23: IMPRESSION: Findings consistent with colitis. Sigmoidoscopy on 04/01/[address] Isadora Roberto - Perianal skin tags found on perianal exam. - Pseudomembranous colitis. - Severe (Vanessa Score 3) ulcerative colitis. Biopsied. Pathology: A. Sigmoid colon, biopsy: - Chronic active colitis with ulcer exudate. - Negative for dysplasia. B. Rectum, biopsy: - Chronic active proctitis. - Negative for dysplasia. Colonoscopy on 10/15/[address] Bill Yusuf - severely active ulcerative pancolitis with pseudopolyposis, biopsies obtained. View External Procedures - Colonoscopy [ID [id number]] Pathology: -chronic active colitis with ulcer Scan on 11/19/2021 9:18 AM by Provider, External, PA-C: Pathology PAST MEDICAL HISTORY Diagnosis Date Blood disorder 12/2021 Ulcerative colitis (HCC) PAST SURGICAL HISTORY Procedure Laterality Date COLONSCOPY SCREENING HIGH RISK LEEP PROCEDURE (W NOTE) LIGATE FALLOPIAN TUBE Current Outpatient Medications Medication Sig Dispense Refill predniSONE (DELTASONE) 10 mg tablet Take 1 tablet by mouth once daily. 30 tablet 1 azaTHIOprine (IMURAN) 50 mg tablet Take 1 tablet by mouth once daily for 30 days, THEN 2 tablets once daily. 150 tablet 0 escitalopram oxalate (LEXAPRO ORAL) Take 40 mg by mouth. UBRELVY 100 mg tablet TAKE 1 TABLET BY MOUTH MAY TAKE 2ND DOSE AT LEAST 2 HOURS AFTER NEEDED ONCE DAILY clonazePAM (KLONOPIN) 0.5 mg tablet Take 0.5 mg by mouth twice daily as needed. No current facility-administered medications for this visit. ALLERGIES No Known Allergies FAMILY HISTORY Problem Relation Age of Onset Heart Attack Paternal Grandfather Social History Tobacco Use Smoking status: Former Types: Cigarettes Quit date: 12/01/2022 Years since quittin.1 Smokeless tobacco: Never Vaping Use Vaping Use: current everyday user Substances: Nicotine Devices: Disposable, Pre-filled or refillable cartridge Substance Use Topics Alcohol use: Not Currently Drug use: Not Currently Physical Exam: Ht 167.6 cm (5' 6 ) Wt 94 kg (207 lb 3.7 oz) LMP 03/09/2023 BMI 33.45 kg/m? General Appearance: Well appearing, alert, in no acute distress, well-hydrated, well nourished. Abdomen: soft ND NT Assessment Assessment and Plan: Angela Elam is a 43 year old female with ulcerative pancolitis refractory to medication currently on steroids who presents to discuss surgical options. Three stage TPC, IPAA with goal of getting off steroids prior to proctectomy. We discussed risks of surgery and expected bowel function after a pouch. Stoma RN consultation We discussed the risks and benefits of surgery including injury to other structures, bleeding, infection, return to the OR, ileus, as well as the possibility of medical complications of surgery including DVT/PE, PNA, [place], stroke, and . The patient understands these risks and is in agreement with proceeding. Medical Decision Making: Data Reviewed: Tests AND Documents Reviewed/ordered: Review of prior notes from GI Review of Pathology Review of Imaging: CT Abdomen, CT Pelvis Review of Labs: CBC, BMP Review of Procedures / Tests: Colonoscopy, Flexible Sigmoidoscopy I have independently interpreted: CT Abdomen, CT Pelvis with pancolitis I have discussed Angela Elam's treatment plan and/or (more content not included)... [facility] 12-16-2023 Miscellaneous Notes === PHARMACY TEAM ==== APPROVAL RECEIVED Benefit Type: Medical Servicing Location Tax ID: [id number] Main Insurance Name: [facility] MEDICAID Authorization received via fax Drug Name(s) & HCPCS Code(s): Avpj Q5121 Approval Date Range: 12/10/2023 to 05/26/2024 Approval #: [id number] Dose & Frequency: 900 mg q 8 weeks # Visits/Treatments (if applicable): 4 visits Temporary Site of Care Approval: N/A Attempted to call patient regarding Dr. Martinez's instructions: Therapy plan updated to IFX 10 mg/kg/dose every 8 weeks. Imuran prescribed: 50 mg (1 tab) per day for 30 days and if tolerating well, she can increase this to 100 mg (2 tabs) per day until our next appointment. I have ordered standing CBCs and LFTs which she should have done every 2 weeks starting 2 weeks after beginning Imuran. Repeat trough IFX levels with Ab should be drawn 2 months after she has received her first 10 mg/kg dose just prior to her 2nd 10 mg/kg dose (either day before or morning of, prior to her infusion). She should message me 2 weeks prior to this infusion so I can order this lab work. No answer. Mailbox full. Sent patient [facility] message with instructions and recommendations. Melanie Lechuga RN Spoke to Dr. Martinez. He stated that the patient partially responded to infliximab but has always required prednisone as well. As soon we started to taper the prednisone, the patient's symptoms returned. Will send responses to PA team. Melanie Lechuga RN Images from the original note were not included. PA for dose increase stated the following: Additional Information Needed: Has the patient been treated with the standard maintenance dosing for at least 2 doses or 16 weeks? Yes, patient's first dose was on April 21, 2023. Is the increased dosing being prescribed by a GI doctor? Yes. Did the patient initially achieve and adequate response to standard dosing but has subsequently lost response as determined by the prescriber? Did the patient partially respond but had an inadequate response to the standard dosing as determined by the prescriber? Does the patient have signs and symptoms of the disease? Fecal calprotectin is markedly elevated, suggesting active inflammation in the colon. Patient reported frequent bloody, loose stools (approximately 15x a day). Patient feels weak and aching legs. Is the dose escalation based on results of therapeutic drug level or anti-drug antibody testing alone? No, not only based on the therapeutic drug level testing, however she had no detectable infliximab level in her blood at trough. She also has detectable antibodies against infliximab. Are the patient's symptoms due to active infections or any other GI disorder other than the primary disease? No. Dr. Martinez - Can you please review the two questions in bold above. To me, it appears that the patient had a partial response to the standard dosing, but please advise which is correct. Thanks! Will call patient about message below once I receive response. Melanie Lechuga RN Therapy plan updated to IFX 10 mg/kg/dose every 8 weeks. Imuran prescribed: 50 mg (1 tab) per day for 30 days and if tolerating well, she can increase this to 100 mg (2 tabs) per day until our next appointment. I have ordered standing CBCs and LFTs which she should have done every 2 weeks starting 2 weeks after beginning Imuran. Repeat trough IFX levels with Ab should be drawn 2 months after she has received her first 10 mg/kg dose just prior to her 2nd 10 mg/kg dose (either day before or morning of, prior to her infusion). She should message me 2 weeks prior to this infusion so I can order this lab work. Called and spoke to patient. Patient states the blood work was taken the day of the infusion prior to having it done. Informed her of message from Dr. Martinez as seen below. Patient states understanding. States she thinks she has been on Imuran in the past. Patient is agreeable to increasing the dose of infliximab and adding Imuran. States she uses [facility] in [place]. Patient states she feels that for the first few weeks after the infusion, she feels constipated. States she will go a tiny bit at a time, but will still have to go frequently. Denies rectal bleeding currently, but states she had some a couple days ago. States she gets occasional cramping, but it will go away after BM. States she is having 7-8 BM a day, but not much is coming out each time. Has urgency to go, but it is only a little bit. Denies fever, chills, N/V. Melanie Lechuga RN Melanie, can you please call and review her lab / stool test results? Fecal calprotectin is markedly elevated, suggesting active inflammation in the colon. She has no detectable infliximab level in her blood. Can you confirm that this lab was drawn on the day or day prior to her infusion? If this is a true trough, I would like to increase her dose to 10 mg/kg every 8 weeks. Her insurance company may only allow an increase to 7.5 mg/kg q8wks, but I do not think that this dose will suffice. She also has detectable antibodies against infliximab. In an effort to suppress these antibodies, I would like to add an immunomodulator (Imuran) in an effort to suppress these antibodies. TPMT level is normal. Please review potential side effects of Imuran with patient: nausea, vomiting, fatigue, pancreatitis, increased risk of infection, low white blood cell count, liver inflammation and a slightly higher risk of certain skin cancers and other malignancies, such as lymphoma. However, I believe that these risks are outweighed by the benefit of combination therapy (infliximab + Imuran), especially in regard to colon cancer prevention, reducing the need for future colonic surgery, symptom control and reducing dependence on steroids. If she is agreeable to increasing infliximab and adding Imuran, I will place these orders. It can take several weeks to feel the effects of these changes. Can you find out how she's doing right now and whether she is on steroids or not? documented in this encounter [facility] 04-07-2023 Instructions Mak Martinez MD - 04/07/2023 10:41 AM EDT Thank you for seeing me in clinic today. It was very nice to meet you! As we discussed, my recommendations are as follows: I would like to start you on infliximab (Remicade) infusions to control your ulcerative colitis. Please keep me updated if you experience any side effects from this medication. Please finish your course of vancomycin Continue to taper your steroid. If you have worsening diarrhea or new blood in your stool as you finish the vancomycin or taper the steroid, please send me a [employer] message right away with an update. Please make a follow up visit with me in 4-6 months. At this time, I would like to check your stool testing, infliximab drug levels / antibodies and order your follow up colonoscopy If you have any questions about the above treatment plan, please do not hesitate to send me a [employer] message or call the [facility] at [phone] to route me a message. documented in this encounter [facility] 04-07-2023 History and physical note FOLLOW UP OFFICE VISIT REASONS FOR VISIT: Ulcerative pancolitis C. Diff colitis PATIENT SUMMARY: Angela Elam is a 42 year old female with a history of tobacco use and C. Diff colitis (diagnosed and treated in 2019) who presents to the GI clinic to establish care for ulcerative pancolitis. She lives in the [facility] and is in clinic today with her mother. She was diagnosed with UC in 2019 and has been on mesalamine, budesonide, Humira (didn't work, but only had 3 injections), Entyvio x 1 year (partial control), Stelara every 6 weeks and Zemposia (intolerable d/t visual disturbances, stopped 1 month ago). She isn't sure why these medications were switched/stopped. She was recently hospitalized at [place] between 03/30-04/05 for bloody diarrhea. She was averaging 15-20 BMs/day. C. Diff PCR was positive, but toxin was negative. Fecal madeleine was >3K. She was seen by [facility]. Flex sig showed severe pseudomembranous colitis. She was treated with oral vancomycin and IV Solumedrol, which was ultimately converted to a PO prednisone taper at discharge. INTERVAL HISTORY: currently feels great. She is averaging 2-3 semi-formed BMs/day without blood or mucus. Still using prednisone 40 mg/day and planning to taper as instructed. Still finishing her course of oral vancomycin. She denies jaundice, pruritus, rashes, eye problems, dysphagia, heartburn, regurgitation, early satiety, nausea, vomiting or abdominal pain. She usually has joint pain when her UC is active, chiefly in her knees but denies currently. Of note, she took Augmentin in 01/2023 for a suspected URI, which likely contributed to her most recent episode of C. Diff colitis. 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 Diff colitis. Past Clinical Work-up: Sigmoidoscopy: 04/01/23: Dr. Roberto: for bloody diarrhea, UC surveillance - Perianal skin tags found on perianal exam. - Pseudomembranous colitis. - Severe (Vanessa Score 3) ulcerative colitis. Biopsied. Path: A. Sigmoid colon, biopsy: - Chronic active colitis with ulcer exudate. - Negative for dysplasia. B. Rectum, biopsy: - Chronic active proctitis. - Negative for dysplasia. CT abd/pel w/IV 03/30/23: Liver: There is a 1.8 cm cyst in the right lobe of liver. Otherwise, the liver appears unremarkable. Biliary: No bile duct dilation. Spleen: No mass. No splenomegaly. Pancreas: No mass or duct dilation. GI tract: There is colonic wall thickening with pericolonic stranding. The bowel wall thickening is most prominent in the region of the ascending colon. The appendix appears normal. IMPRESSION: Findings consistent with colitis. Colon: 10/15/21: Dr. Yusuf: -Severe active ulcerative pancolitis with pseudopoyposis Prep was good Recommendations: Continue budesonide and Stelara Path: Chronic active colitis Component Latest Ref Rng & Units 04/03/2023 TPMT Activity 24.0 - 44.0 U/mL 29.2 Component Latest Ref Rng & Units 04/03/2023 TB Nil <=8.00 IU/mL <0.00 TB1 Ag minus Nil <0.35 IU/mL 0.02 TB2 Ag minus Nil <0.35 IU/mL <0.00 TB Result Negative Mitogen minus Nil >=0.50 IU/mL 4.89 TB Interpretation Infection with M. tuberculosis complex is unlikely. If latent tuberculosis infection is highly suspected, a negative result does not rule out the infection. Specimens from immunocompromised patients and those <5 years of age may show false negative results. In case of a contact investigation, please repeat 8-12 weeks after a known exposure. Component Latest Ref Rng & Units 04/03/2023 Hep B Surface Ab, Qual Positive Positive Hep B Surf Ab Quant >=12.00 mIU/mL 305.10 Hepatitis A IgG Negative Negative Hep B Core Ab, Total Negative Negative Hep B Surface Ag Negative Negative Component Latest Ref Rng & Units 04/03/2023 Occult Blood Exam Screen Negative Positive (A) Component Latest Ref Rng & Units 03/30/2023 Calprotectin, Fecal 0 - 50 mg/kg >3,000.0 (H) Component Latest Ref Rng & Units 03/30/2023 Shigella spp./Enteroinvasive E.coli DNA Not Detected Not detected Campylobacter jejuni/coli DNA Not Detected Not detected Shiga toxin-producing gene(s) Not Detected Not detected Salmonella spp. DNA Not Detected Not detected Cryptosporidium Antigen by EIA Negative Negative for Cryptosporidium by EIA. Giardia Antigen by EIA Negative Negative for Giardia lamblia by EIA. C. difficile PCR Negative for C. difficile toxin by PCR Positive for C. difficile toxin by PCR (A) C. difficile Toxin EIA Negative for C. difficile toxin C. difficile toxin NOT DETECTED by EIA. Component Latest Ref Rng & Units 03/30/2023 04/02/2023 CRP <0.9 mg/dL 6.3 (H) WSR 0 - 20 mm/hr 52 (H) Component Latest Ref Rng & Units 03/31/2023 04/02/2023 04/04/2023 5:56 PM WBC 3.70 - 11.00 k/uL 6.09 6.51 9.08 RBC 3.90 - 5.20 m/uL 3.40 (L) 3.42 (L) 3.45 (L) Hemoglobin 11.5 - 15.5 g/dL 10.3 (L) 10.2 (L) 10.4 (L) Hematocrit 36.0 - 46.0 % 32.1 (L) 32.0 (L) 33.3 (L) MCV 80.0 - 100.0 fL 94.4 93.6 96.5 MCH 26.0 - 34.0 pg 30.3 29.8 30.1 MCHC 30.5 - 36.0 g/dL 32.1 31.9 31.2 RDW-CV 11.5 - 15.0 % 13.1 13.0 12.7 Platelet Count 150 - 400 k/uL 304 314 329 MPV 9.0 - 12.7 fL 8.2 (L) 8.2 (L) 8.3 (L) Absolute nRBC <0.01 k/uL <0.01 <0.01 0.02 (H) Component Latest Ref Rng & Units 03/30/2023 03/31/2023 04/01/2023 Protein, Total 6.3 - 8.0 g/dL 6.2 (L) 5.9 (L) Albumin 3.9 - 4.9 g/dL 3.4 (L) 3.1 (L) Calcium 8.5 - 10.2 mg/dL 8.5 8.2 (L) 8.5 Bilirubin, Total 0.2 - 1.3 mg/dL <0.2 (L) 0.2 Alkaline Phosphatase 34 - 123 U/L 70 60 AST 13 - 35 U/L 17 14 ALT 7 - 38 U/L 23 21 Glucose 74 - 99 mg/dL 94 130 (H) 91 BUN 7 - 21 mg/dL 8 5 (L) 6 (L) Creatinine 0.58 - 0.96 mg/dL 0.74 0.73 0.81 Sodium 136 - 144 mmol/L 139 139 141 Potassium 3.7 - 5.1 mmol/L 3.5 (L) 3.9 3.9 Chloride 97 - 105 mmol/L 105 106 (H) 109 (H) CO2 22 - 30 mmol/L 24 23 24 Anion Gap 9 - 18 mmol/L 10 10 8 (L) eGFR >=60 mL/min/1.73m 104 105 93 ALLERGIES No Known Allergies PAST MEDICAL HISTORY Diagnosis Date Blood disorder 12/2021 Ulcerative colitis (HCC) PAST SURGICAL HISTORY Procedure Laterality Date COLONSCOPY SCREENING HIGH RISK LEEP PROCEDURE (W NOTE) LIGATE FALLOPIAN TUBE FAMILY HISTORY Problem Relation Age of Onset Heart Attack Paternal Grandfather Social History Tobacco Use Smoking status: Never Smokeless tobacco: Never Vaping Use Vaping Use: current everyday user Substances: Nicotine Devices: Disposable, Pre-filled or refillable cartridge Substance Use Topics Alcohol use: Not Currently Drug use: Not Currently Current Outpatient Medications Medication Sig predniSONE (DELTASONE) 10 mg tablet Take 4 tablets by mouth daily for 7 days, then 3 & 1/2 tablets for 7 days, then 3 tablets or 7 days, then 2 & 1/2 tablets for 7 days, then 2 tablets for 7 days, then 1 & 1/2 tablets for 7 days, then 1 tablet for 7 days, then 1/2 tablet for 7 days, then stop. nicotine (NICODERM) 14 mg/24 hr Apply 1 Patch as directed once daily. vancomycin oral liquid 25 mg/mL (CPD) Take 5 mL by mouth four times daily for 11 days. Discard remainder escitalopram oxalate (LEXAPRO ORAL) Take 40 mg by mouth. UBRELVY 100 mg tablet TAKE 1 TABLET BY MOUTH MAY TAKE 2ND DOSE AT LEAST 2 HOURS AFTER NEEDED ONCE DAILY clonazePAM (KLONOPIN) 0.5 mg tablet Take 0.5 mg by mouth twice daily as needed. No current facility-administered medications for this visit. I have confirmed and edited, if necessary, the PFSH obtained by others. REVIEW OF SYSTEMS CONSTITUTIONAL: +diaphoresis; Negative for unintentional weight loss, malaise or fevers HEENT: +migraine headaches; Negative for changes in hearing/vision, nose bleeds or other nasal problems RESPIRATORY: Negative for cough, hemoptysis, wheezing or dyspnea CARDIOVASCULAR: Negative for chest pain, palpitations, syncope or lightheadedness GI: See HPI : Negative for dysuria, polyuria, incontinence or hematuria MUSCULOSKELETAL: Negative for arthralgia or myalgia INTEGUMENTARY/SKIN: Negative for rash or skin lesion HEMATOLOGY/LYMPHOLOGY: Negative for prolonged bleeding, easy bruising or swollen nodes ENDOCRINE: Negative for cold/heat intolerance, polydipsia or goiter NEURO: Negative for encephalopathy, tremor or gait abnormality PSYCH: Negative for new changes in mood or affect PHYSICAL EXAM: BP 107/72 (BP Site: Right Arm, BP Position: Sitting, BP Cuff Size: Large Adult) Pulse 79 Resp 16 Ht 167.6 cm (5' 6 ) Wt 90.3 kg (199 lb) LMP 03/09/2023 BMI 32.12 kg/m Gen: Comfortable female in NAD Head: Normocephalic, atraumatic Skin: No jaundice, rashes or skin lesions Eyes: Sclera anicteric, conjunctiva pink Neck: Supple, no palpable lymphadenopathy or goiter Heart: RRR, no murmurs, rubs or gallops Lungs: CTAB, non-labored breathing Abd: Soft, non-distended, mild RLQ TTP without r/r/g, bowel sounds present, no palpable masses or organomegaly Ext: No lower extremity edema, clubbing or cyanosis. Extremities are warm and well-perfused Neuro: Alert and oriented, no tremor or gross focal motor deficits Psych: Congruent mood and affect, appropriate insight and judgement ASSESSMENT/PLAN: Angela Elam is a 42 year old female with a history of tobacco use and recurrent C. Diff colitis (Dx in 2019 and again most recently in 03/2023) who presents to the GI clinic to establish care for ulcerative pancolitis. She was recently hospitalized at [place] between 03/30-04/05 for bloody diarrhea. Although she was C. Diff PCR (+), toxin (-), she was treated with oral vancomycin. Fecal madeleine was >3K. Flex sig showed severe pseudomembranous colitis. She was also treated for active UC with steroids. 1) Ulcerative pancolitis Duration of symptoms: 2018 Extent: Bruce-colonic involvement Disease severity: Severe Current disease status: Active, improving on prednisone Current treatment: Prednisone 40 mg/day Prior treatment: Mesalamine, (ineffective), budesonide, Humira (switched to Entyvio, but only had 3 injections - unclear if there was enough time for response), Entyvio x 1 year (partial control), Stelara every 6 weeks (lost response) and Zemposia (intolerable d/t visual disturbances, stopped 1 month ago). Prior luminal surgery: No History of colonic dysplasia: No Extraintestinal manifestations: IBD arthropathy (currently asymptomatic) Bertos UC is severe. She has not had a long enough trial on Humira to know if she has failed anti-TNF therapy. No drug levels are available for review and patient does not recall getting these labs done before her infusions. Favor infliximab given disease severity. Patient is agreeable. Pre-biologic labs are up-to-date. Patient wishes to infuse around [place]. --Remicade induction at 0, 6, and 8 weeks followed by 5 mg/kg every 8 weeks. Risks/benefits and side effects reviewed today in clinic --Will plan on checking drug levels and fecal calprotectin at next follow up visit --Avoid NSAIDs --Finish oral vancomycin prescription --Taper prednisone --If symptoms worsen as steroids are tapered or after vancomycin is stopped, patient was advised to send me a [employer] message right away. 2) Recurrent C. Diff colitis Diagnosed and treated in 2019. Diagnosed again most recently last month. Completing an oral vancomycin taper. --Finish oral vancomycin prescription Follow up in 4-6 months Mak Martinez MD Associate Staff, Department of Gastroenterology and Hepatology [facility] [place] documented in this encounter [facility] 07-31-2022 Evaluation note Encounter Date Diagnosis Assessment Notes Jul, High risk medication use (ICD-10 - Z79.899) Jul, Ulcerative colitis (ICD-10 - K51.90) [employer] Other 07-19-2022 Miscellaneous Notes* Telephone Encounter - Gini Zuniga Sec - 06/18/2022 12:52 PM EDT Called to reschedule today's phone appt with Dr Guzmán. No lab results to discuss. Asked her to call our office back to reschedule lab appt and phone call a few days later with Dr Guzmán. Thanks for your help. [facility]* Encounter Date Diagnosis Assessment Notes Treatment Notes Treatment Clinical Notes May, Ulcerative pancolitis with complication (ICD-10 - K51.019) May, High risk medication use (ICD-10 - Z79.899) [employer] Other 10-26-2021 Evaluation note* Encounter Date Diagnosis Assessment Notes Treatment Notes Treatment Clinical Notes Aug, Ulcerative pancolitis with complication (ICD-10 - K51.019) CONTINUE BUDESONIDE 3 CAPSULES DAILY INCREASE LOPERAMIDE 2 TABLETS THREE TIMES A DAY PROCEED WITH COLONOSCOPY SCHEDULED Aug, Iron deficiency anemia due to chronic blood loss (ICD-10 - D50.0) [employer] Other 10-12-2021 Evaluation note* Encounter Date Diagnosis Assessment Notes Treatment Notes Treatment Clinical Notes Aug, Ulcerative pancolitis with complication (ICD-10 - K51.019) Aug, Other Start approval process for Sergo Austin to take Imodium 2 tabs bid Start Budesonide 3mg 3 caps daily for 8 weeks Start Iron 1 tab bid Start Hypscyamine 1 tab bid CBC & CMP in 1 week Colonoscopy Pt to report to the ER if symptoms worsen Follow up in 2 weeks [facility] [employer] Other Evaluation note* Diagnosis Iron deficiency anemia due to chronic blood loss- Primary Iron deficiency anemia secondary to blood loss (chronic) documented in this encounter [facility] [employer] Other [facility] note* Diagnosis Iron deficiency anemia due to chronic blood loss- Primary Iron deficiency anemia secondary to blood loss (chronic) [facility] Diagnosis Appointment canceled by hospital- Primary Procedure not carried out for other reasons documented in this encounter [facility] noteNo assessment information [facility] Work Phone: Evaluation note* Diagnosis Ulcerative pancolitis with complication (HCC)- Primary Recurrent Clostridioides difficile infection [facility]* Diagnosis Ulcerative pancolitis with complication (HCC)- Primary [facility]* Diagnosis Ulcerative pancolitis with complication (HCC)- Primary [facility]* Diagnosis Ulcerative colitis with complication, unspecified location (HCC)- Primary [facility]* Diagnosis FPC (current) use of immunomodulator- Primary documented in this encounter [facility] note* Diagnosis Onset Date Resolution Status [facility] Work Phone: [employer] note* Diagnosis Ulcerative pancolitis without complication (HCC)- Primary [employer] current use of systemic steroids Encounter for long-term (current) use of steroids documented in this encounter [facility] note* Diagnosis Anxiety Anxiety state, unspecified [facility] Diagnosis Ulcerative pancolitis without complication (HCC)- Primary [facility] Diagnosis Ulcerative pancolitis without complication (HCC) [facility] Diagnosis Ulcerative pancolitis without complication (HCC)- Primary [facility] Diagnosis Iron deficiency anemia due to chronic blood loss- Primary Iron deficiency anemia secondary to blood loss (chronic) Malaise and fatigue Other malaise and fatigue [facility] this [facility]* Diagnosis Iron deficiency anemia due to chronic blood loss- Primary Iron deficiency anemia secondary to blood loss (chronic) Ulcerative pancolitis without complication (HCC) [facility] Diagnosis Ulcerative pancolitis (HCC)- Primary [place] ulcerative (chronic) colitis Bloody diarrhea Diarrhea [facility] Diagnosis Iron deficiency anemia due to chronic blood loss- Primary Iron deficiency anemia secondary to blood loss (chronic) Ulcerative pancolitis without complication (HCC) [facility] Diagnosis Ulcerative pancolitis without complication (HCC)- Primary Iron deficiency anemia due to chronic blood loss Iron deficiency anemia secondary to blood loss (chronic) [facility]* Diagnosis Anxiety Anxiety state, unspecified documented [facility] encounter [facility]* 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* Diagnosis Ulcerative pancolitis with complication (HCC)- Primary [facility]* Diagnosis Ulcerative pancolitis without complication (HCC)- Primary [facility]* Diagnosis CMV colitis (HCC) Cytomegaloviral disease [facility]* Diagnosis Migraine without aura and without status migrainosus, not intractable ([facility]/HCC) Cervicalgia Anxiety Anxiety state, unspecified documented in this encounter [facility]* Diagnosis Anxiety- Primary Anxiety state, unspecified Crohn's disease, unspecified, without complications (CMS/HCC) Other migraine without status migrainosus, not intractable (CMS/HCC) Iron deficiency anemia due to chronic blood loss Iron deficiency anemia secondary to blood loss (chronic) Current moderate episode of major depressive disorder without prior episode (HCC) (CMS/HCC) Frontal sinusitis, unspecified chronicity Diarrhea of infectious origin Diarrhea of presumed infectious origin documented in this encounter [facility]* Diagnosis Iron deficiency anemia due to chronic blood loss- Primary Iron deficiency anemia secondary to blood loss (chronic) Ulcerative pancolitis without complication (HCC) [facility] Diagnosis Ulcerative pancolitis without complication (HCC)- Primary [employer] (current) use of immunomodulator [facility]* Diagnosis Iron deficiency anemia due to chronic blood loss- Primary Iron deficiency anemia secondary to blood loss (chronic) [facility] Diagnosis CMV colitis (HCC) Cytomegaloviral disease [facility]* Diagnosis Migraine without aura and without status migrainosus, not intractable (CMS/HCC) Cervicalgia documented in this encounter [facility] note* Diagnosis Anxiety Anxiety state, unspecified documented in this encounter [facility] note* Diagnosis Anxiety- Primary Anxiety state, unspecified Psychophysiological insomnia Persistent disorder of initiating or maintaining sleep documented in this encounter [facility] note* Diagnosis Anxiety Anxiety state, unspecified documented in this encounter [facility] HealthcareHistory general Narrative - Reported* Type Description Date Medical History rectal bleeding Medical History colitis Surgical History cyst removed from right arm Surgical History removed cyst from urethra Surgical History Tubal ligation Surgical History Leep procedure Surgical History Colonoscopy 01/2019 [employer] Other [employer] for referral (narrative)* Diagnostic Procedure Only (Routine) - Pending Review Specialty Diagnoses / Procedures Referred By Contac t Referred To Contact XR IMAGING Diagnoses FPC current use of systemic steroids Procedures [place] [address] [place] [address] [place] [id number] Referral ID Status Reason Start Date Expiration Date Visits Requested Visits Authorized [id number] Pending Review Auto-Gener[employer] ed Referral 05/21/2024 06/20/2025 1 1 [facility] for referral (narrative)* Outpatient Procedure (Routine) - Closed Specialty Diagnoses / Procedures Referred By Contac t Referred To Contact [facility] Diagnoses CMV colitis (HCC) Procedures SIGMOIDOSCOPY SIGMOIDOSCOPY FLX DX W/COLLJ SPEC BR/WA [place] [address] [place] [address] [facility] [address] [place] [phone] Referral ID Status Reason Start Date Expiration Date V isits Requested Visits Authorized [id number] Closed Auto-Generate d Referral 11/15/2024 11/15/2025 1 1 [facility] for visit Narrative* Outpatient Procedure (Routine) - Closed Specialty Diagnoses / Procedures Referred By Contac t Referred To Contact [facility] Diagnoses CMV colitis (HCC) Procedures SIGMOIDOSCOPY SIGMOIDOSCOPY FLX DX W/COLLJ SPEC BR/[place] [address] [place] [phone] [facility] [address] [place], [place] [phone] Referral ID Status Reason Start Date Expiration Date V isits Requested Visits Authorized [id number] Closed Auto-Generate d Referral 11/15/2024 11/15/2025 1 1 [facility] Summary Purpose Family History Relationship Condition Age at Onset Recorded Date/T hilda father Gastrointestinal hemorrhage Unknown Relationship Condition Age at Onset Recorded Date/T hilda father Gastrointestinal hemorrhage Unknown father Hypertension Unknown Advance Directives Advance Directive Response Recorded Date/ Time Advance Directives No February 28 019 2:54pm Advance Directive Response Recorded Date/ Time Advance Directives No February 28 019 3:54pm Date Activated Date Inactivated Comments 09/29/2024 4:41 AM 10/01/2024 5:00 PM Question Answer Comments Full Code Order Discussed With: Patient Date Activated Date Inactivated Comments 09/29/2024 4:41 AM 10/01/2024 5:00 PM Question Answer Comments Full Code Order Discussed With: Patient Chief Complaint and Reason for Visit Chief Complaint [id number] Chief Complaint Rash Reason for Visit [facility] Concerns Infection Onset Date Last Indicated Resolved Time C. difficile 03/30/2023 03/30/2023 Medications Administered Section Inactive Administered Medications - up to 3 most recent administrations Medication Order MAR Action Action Date Dose Rate Site acetaminophen 650 mg tab(s) (TYLENOL) 650 mg, ORAL, ONCE, 1 dose, On Fri05/05/23 at 1430, If ordered PRN for pain, patient/guardian may elect to receive this medication for higher pain levels INSTEAD of the opioid, if preferred: N/A Given 05/05/2023 2:16 PM EDT 650 mg diphenhydrAMINE 25 mg (BENADRYL) 25 mg, ORAL, ONCE, 1 dose, On Fri05/05/23 at 1430 Given 05/05/2023 2:16 PM EDT 25 mg inFLIXimab-axxq 451.5 mg in NaCl 0.9% 250 mL (AVSOLA) 451.5 mg (5 mg/kg/dose 90.3 kg), INTRAVENOUS, at 83.33-125 mL/hr, Administer over 2-3 Hours, ONCE, 1 dose, On Fri05/05/23 at 1430, Total Volume: = 250 mL EXP 05/06/2023@1430 Administer with 0.2 micron filter., Medication Substitution: [facility] preferred product has been replaced with the insurance mandated product New Bag/Syringe/Bottle 05/05/2023 2:32 PM EDT 451.5 mg 125 mL/hr Inactive Administered Medications - up to 3 most recent administrations Medication Order MAR Action Action Date Dose Rate Site acetaminophen 650 mg tab(s) (TYLENOL) 650 mg, ORAL, ONCE, 1 dose, On Fri06/02/23 at 1430, If ordered PRN for pain, patient/guardian may elect to receive this medication for higher pain levels INSTEAD of the opioid, if preferred: N/A Given 06/02/2023 2:35 PM EDT 650 mg inFLIXimab-axxq 473 mg in NaCl 0.9% 250 mL (AVSOLA) 473 mg (5 mg/kg/dose 94.6 kg), INTRAVENOUS, at 83.33-250 mL/hr, Administer over 1-3 Hours, ONCE, 1 dose, On Fri06/02/23 at 1430, Total Volume: = 250 mL EXP: 1420 06/03/23 Administer with 0.2 micron filter., Medication Substitution: [facility] preferred product has been replaced with the insurance mandated product New Bag/Syringe/Bottle 06/02/2023 2:50 PM EDT 473 mg 125 mL/hr Inactive Administered Medications - up to 3 most recent administrations Medication Order MAR Action Action Date Dose Rate Site acetaminophen 650 mg tab(s) (TYLENOL) 650 mg, ORAL, ONCE, 1 dose, On Fri09/26/23 at 1430, If ordered PRN for pain, patient/guardian may elect to receive this medication for higher pain levels INSTEAD of the opioid, if preferred: N/A Given 09/26/2023 2:29 PM EDT 650 mg inFLIXimab-axxq 477 mg in NaCl 0.9% 250 mL (AVSOLA) 477 mg (5 mg/kg/dose 95.4 kg Order-specific weight), INTRAVENOUS, at 83.33-250 mL/hr, Administer over 1-3 Hours, ONCE, 1 dose, On Fri09/26/23 at 1430, Total Volume: = 250 mL EXP: 1430 09/27/23 Administer with 0.2 micron filter., Medication Substitution: [facility] preferred product has been replaced with the insurance mandated product New Bag/Syringe/Bottle 09/26/2023 2:40 PM EDT 477 mg 200 mL/hr Reason for Referral Specialty Diagnoses / Procedures Referred By Contac t Referred To Contact Infectious Diseases Diagnoses CMV colitis (HCC) Procedures CONSULT TO INFECTIOUS DISEASES OFFICE/OUTPATIENT [facility] 60 [place] [address] [place] [phone] Referral ID Status Reason Start Date Expiration Date Visits Requested Visits Authorized [id number] Authorized PCP Requested Referral 4 10/08/2025 1 1 Additional Source Comments Source Comments (unrecognize d section and content) In the event this informatio n is protected by the Federal Confidentiality of Alcohol and Drug Abuse Patient Records regulations: The Federal rules restrict any use of the information to criminally investigate or prosecute any alcohol or drug abuse patient.[facility] the event this information is protected by the Federal Confidentiality of Alcohol and Drug Abuse Patient Records regulations: The Federal rules restrict any use of the information to criminally investigate or prosecute any alcohol or drug abuse patient.[facility] the event this information is protected by the Federal Confidentiality of Alcohol and Drug Abuse Patient Records regulations: The Federal rules restrict any use of the information to criminally investigate or prosecute any alcohol or drug abuse patient.[facility] the event this information is protected by the Federal Confidentiality of Alcohol and Drug Abuse Patient Records regulations: The Federal rules restrict any use of the information to criminally investigate or prosecute any alcohol or drug abuse patient.[facility] the event this information is protected by the Federal Confidentiality of Alcohol and Drug Abuse Patient Records regulations: The Federal rules restrict any use of the information to criminally investigate or prosecute any alcohol or drug abuse patient.[facility] the event this information is protected by the Federal Confidentiality of Alcohol and Drug Abuse Patient Records regulations: The Federal rules restrict any use of the information to criminally investigate or prosecute any alcohol or drug abuse patient.[facility]In the event this information is protected by the Federal Confidentiality of Alcohol and Drug Abuse Patient Records regulations: The Federal rules restrict any use of the information to criminally investigate or prosecute any alcohol or drug abuse patient.[facility] the event this information is protected by the Federal Confidentiality of Alcohol and Drug Abuse Patient Records regulations: The Federal rules restrict any use of the information to criminally investigate or prosecute any alcohol or drug abuse patient.[facility] the event this information is protected by the Federal Confidentiality of Alcohol and Drug Abuse Patient Records regulations: The Federal rules restrict any use of the information to criminally investigate or prosecute any alcohol or drug abuse patient.[facility] the event this information is protected by the Federal Confidentiality of Alcohol and Drug Abuse Patient Records regulations: The Federal rules restrict any use of the information to criminally investigate or prosecute any alcohol or drug abuse patient.[facility]In the event this information is protected by the Federal Confidentiality of Alcohol and Drug Abuse Patient Records regulations: The Federal rules restrict any use of the information to criminally investigate or prosecute any alcohol or drug abuse patient.[facility]In the event this information is protected by the Federal Confidentiality of Alcohol and Drug Abuse Patient Records regulations: The Federal rules restrict any use of the information to criminally investigate or prosecute any alcohol or drug abuse patient.[facility]In the event this information is protected by the Federal Confidentiality of Alcohol and Drug Abuse Patient Records regulations: The Federal rules restrict any use of the information to criminally investigate or prosecute any alcohol or drug abuse patient.[facility] HospitalIn the event this information is protected by the Federal Confidentiality of Alcohol and Drug Abuse Patient Records regulations: The Federal rules restrict any use of the information to criminally investigate or prosecute any alcohol or drug abuse patient.[facility]In the event this information is protected by the Federal Confidentiality of Alcohol and Drug Abuse Patient Records regulations: The Federal rules restrict any use of the information to criminally investigate or prosecute any alcohol or drug abuse patient.[facility] HospitalIn the event this information is protected by the Federal Confidentiality of Alcohol and Drug Abuse Patient Records regulations: The Federal rules restrict any use of the information to criminally investigate or prosecute any alcohol or drug abuse patient.[facility]In the event this information is protected by the Federal Confidentiality of Alcohol and Drug Abuse Patient Records regulations: The Federal rules restrict any use of the information to criminally investigate or prosecute any alcohol or drug abuse patient.[facility]In the event this information is protected by the Federal Confidentiality of Alcohol and Drug Abuse Patient Records regulations: The Federal rules restrict any use of the information to criminally investigate or prosecute any alcohol or drug abuse patient.[facility]In the event this information is protected by the Federal Confidentiality of Alcohol and Drug Abuse Patient Records regulations: The Federal rules restrict any use of the information to criminally investigate or prosecute any alcohol or drug abuse patient.[facility] HospitalIn the event this information is protected by the Federal Confidentiality of Alcohol and Drug Abuse Patient Records regulations: The Federal rules restrict any use of the information to criminally investigate or prosecute any alcohol or drug abuse patient.[facility] HospitalIn the event this information is protected by the Federal Confidentiality of Alcohol and Drug Abuse Patient Records regulations: The Federal rules restrict any use of the information to criminally investigate or prosecute any alcohol or drug abuse patient.[facility] HospitalIn the event this information is protected by the Federal Confidentiality of Alcohol and Drug Abuse Patient Records regulations: The Federal rules restrict any use of the information to criminally investigate or prosecute any alcohol or drug abuse patient.[facility] HospitalIn the event this information is protected by the Federal Confidentiality of Alcohol and Drug Abuse Patient Records regulations: The Federal rules restrict any use of the information to criminally investigate or prosecute any alcohol or drug abuse patient.[facility] HospitalIn the event this information is protected by the Federal Confidentiality of Alcohol and Drug Abuse Patient Records regulations: The Federal rules restrict any use of the information to criminally investigate or prosecute any alcohol or drug abuse patient.[facility] HospitalIn the event this information is protected by the Federal Confidentiality of Alcohol and Drug Abuse Patient Records regulations: The Federal rules restrict any use of the information to criminally investigate or prosecute any alcohol or drug abuse patient.[facility]In the event this information is protected by the Federal Confidentiality of Alcohol and Drug Abuse Patient Records regulations: The Federal rules restrict any use of the information to criminally investigate or prosecute any alcohol or drug abuse patient.[facility] HospitalIn the event this information is protected by the Federal Confidentiality of Alcohol and Drug Abuse Patient Records regulations: The Federal rules restrict any use of the information to criminally investigate or prosecute any alcohol or drug abuse patient.[facility] HospitalIn the event this information is protected by the Federal Confidentiality of Alcohol and Drug Abuse Patient Records regulations: The Federal rules restrict any use of the information to criminally investigate or prosecute any alcohol or drug abuse patient.[facility] HospitalIn the event this information is protected by the Federal Confidentiality of Alcohol and Drug Abuse Patient Records regulations: The Federal rules restrict any use of the information to criminally investigate or prosecute any alcohol or drug abuse patient.[facility]In the event this information is protected by the Federal Confidentiality of Alcohol and Drug Abuse Patient Records regulations: The Federal rules restrict any use of the information to criminally investigate or prosecute any alcohol or drug abuse patient.[facility] HospitalIn the event this information is protected by the Federal Confidentiality of Alcohol and Drug Abuse Patient Records regulations: The Federal rules restrict any use of the information to criminally investigate or prosecute any alcohol or drug abuse patient.[facility]In the event this information is protected by the Federal Confidentiality of Alcohol and Drug Abuse Patient Records regulations: The Federal rules restrict any use of the information to criminally investigate or prosecute any alcohol or drug abuse patient.[facility] HospitalIn the event this information is protected by the Federal Confidentiality of Alcohol and Drug Abuse Patient Records regulations: The Federal rules restrict any use of the information to criminally investigate or prosecute any alcohol or drug abuse patient.[facility]In the event this information is protected by the Federal Confidentiality of Alcohol and Drug Abuse Patient Records regulations: The Federal rules restrict any use of the information to criminally investigate or prosecute any alcohol or drug abuse patient.[facility] HospitalIn the event this information is protected by the Federal Confidentiality of Alcohol and Drug Abuse Patient Records regulations: The Federal rules restrict any use of the information to criminally investigate or prosecute any alcohol or drug abuse patient.[facility] HospitalIn the event this information is protected by the Federal Confidentiality of Alcohol and Drug Abuse Patient Records regulations: The Federal rules restrict any use of the information to criminally investigate or prosecute any alcohol or drug abuse patient.[facility] HospitalIn the event this information is protected by the Federal Confidentiality of Alcohol and Drug Abuse Patient Records regulations: The Federal rules restrict any use of the information to criminally investigate or prosecute any alcohol or drug abuse patient.[facility]In the event this information is protected by the Federal Confidentiality of Alcohol and Drug Abuse Patient Records regulations: The Federal rules restrict any use of the information to criminally investigate or prosecute any alcohol or drug abuse patient.[facility]In the event this information is protected by the Federal Confidentiality of Alcohol and Drug Abuse Patient Records regulations: The Federal rules restrict any use of the information to criminally investigate or prosecute any alcohol or drug abuse patient.[facility] HospitalIn the event this information is protected by the Federal Confidentiality of Alcohol and Drug Abuse Patient Records regulations: The Federal rules restrict any use of the information to criminally investigate or prosecute any alcohol or drug abuse patient.[facility] HospitalIn the event this information is protected by the Federal Confidentiality of Alcohol and Drug Abuse Patient Records regulations: The Federal rules restrict any use of the information to criminally investigate or prosecute any alcohol or drug abuse patient.[facility] HospitalIn the event this information is protected by the Federal Confidentiality of Alcohol and Drug Abuse Patient Records regulations: The Federal rules restrict any use of the information to criminally investigate or prosecute any alcohol or drug abuse patient.[facility] HospitalIn the event this information is protected by the Federal Confidentiality of Alcohol and Drug Abuse Patient Records regulations: The Federal rules restrict any use of the information to criminally investigate or prosecute any alcohol or drug abuse patient.[facility] HospitalIn the event this information is protected by the Federal Confidentiality of Alcohol and Drug Abuse Patient Records regulations: The Federal rules restrict any use of the information to criminally investigate or prosecute any alcohol or drug abuse patient.[facility] HospitalIn the event this information is protected by the Federal Confidentiality of Alcohol and Drug Abuse Patient Records regulations: The Federal rules restrict any use of the information to criminally investigate or prosecute any alcohol or drug abuse patient.[facility] Reason for Visit (unrecogniz ed section and content) Reason Comments Lab Orders Reason Comments Results Reason Comments Future Appointment Reason Comments Consult Hospital Follow-Up/C olitis Reason Comments Follow Up Gyant interaction - F/U - attempt made. No answer. Specialty Diagnoses / Procedures Referred By Contac t Referred To Contact Diagnoses Ulcerative pancolitis with complication (HCC) Procedures INJ. AVSOLA, 10 [place] [address] [place] [address] Erlin Treat [address] [place] [address] Referral ID Status Reason Start Date Expiration Date V isits Requested Visits Authorized [id number] Authorized 04/07/2023 04/07/2024 8 8 Specialty Diagnoses / Procedures Referred By Contac t Referred To Contact Diagnoses Ulcerative pancolitis with complication (HCC) Procedures INJ. AVSOLA, 10 [place] [address] [place] [address] Erlin Treat [address] [place] [address] Reason Comments New Patient Ulcerative colitis, Sigmoidoscopy/ Path 04/01/23 Reason Onset Date Comments Refill Request 02/09/2024 Reason Onset Date Comments Refill Request 04/06/2024 Follow Up 04/06/2024 Reason Comments IBD Flare Reason Onset Date Comments Med Refill 08/31/2024 Reason Onset Date Comments SPP Inflammatory Conditions - Treatment Referral 09/06/2024 Daniel CORREA Insurance Authorization 09/06/2024 LUZ reese pending Reason Comments Insurance Authorization Peer to Octavio , Wilmer RN # [id number], VENITA MILLER, [id number] MAK AVENDAÑO Reason Onset Date Comments Med Refill 09/15/2024 Reason Comments Anemia Specialty Diagnoses / Procedures Referred By Contac t Referred To Contact Hematology Diagnoses Iron deficiency anemia, unspecified iron deficiency anemia type Procedures OFFICE/OUTPATIENT [facility] 60 MINUTES AMB REFERRAL TO HEMATOLOGY Beck Tee Jr., DO [address] [facility] [address] [place] [address] Michael Lizarraga MD [address] [place] [address] Referral ID Status Reason Start Date Expiration Date V isits Requested Visits Authorized [id number] Outside PCP 08/31/2024 02/27/2025 1 1 Specialty Diagnoses / Procedures Referred By Contac t Referred To Contact Diagnoses Iron deficiency anemia due to chronic blood loss Ulcerative pancolitis without complication (HCC) Procedures IRON SUCROSE INJECTION PER 1 MG Dilma Montes, JASPAL [address] [place] [address] Erlin Treat Comerío Mc [address] [place] [address] Referral ID Status Reason Start Date Expiration Date Visits Requested Visits Authorized [id number] Authorized Patient Cleared - Admin/Chairm an/Director advise to proceed or did not respond 4 03/19/2025 99 99 Reason Comments Patient Update Insurance Authorization Reason Onset Date Comments Med Refill 09/27/2024 Specialty Diagnoses / Procedures Referred By Contac t Referred To Contact Diagnoses Ulcerative pancolitis without complication (HCC) Procedures INJECTION, RISANKIZUMAB-RZAA, INTRAVENOUS, 1 [place] [address] [place] [address] Erlin Treat [address] [place] [address] Referral ID Status Reason Start Date Expiration Date V isits Requested Visits Authorized [id number] Authorized 09/02/2024 11/25/2024 1 3 Reason Onset Date Comments Med Refill 10/08/2024 Reason Comments Patient Update Reason Onset Date Comments Med Refill 10/20/2024 Reason Onset Date Comments Follow Up 10/01/2024 Results Reason Onset Date Comments Med Refill 10/29/2024 Reason Comments CMV Specialty Diagnoses / Procedures Referred By Contac t Referred To Contact Infectious Diseases Diagnoses CMV colitis (HCC) Procedures CONSULT TO INFECTIOUS DISEASES OFFICE/OUTPATIENT [facility] 60 [place] [address] [place] [address] Referral ID Status Reason Start Date Expiration Date V isits Requested Visits Authorized [id number] Closed PCP Requested Referral 10/15/2024 10/08/2025 1 1 Reason Onset Date Comments Med Refill 11/16/2024 Reason Onset Date Comments Med Refill 08/03/2024 Reason Onset Date Comments Med Refill 12/12/2024 Reason Onset Date Comments Med Refill 12/29/2024 Reason Onset Date Comments Med Refill 12/30/2024 Reason Comments Anxiety Pt states that thing s are going okay, she states that her daily med isnt working as well Reason Onset Date Comments Med Refill 01/14/2025 Care Teams (unrecognized sec tion and content) Team Status: Active Member Role Status Dates Vanna Tee DO Primary Care Provider Active Team Status: Inactive Member Role Status Dates Vanna Tee DO Primary Care Provider Active Start: April 24, 2024 End: April 24, 2024 Jasmin Patterson APRN Attending Provider Active S tart: April 24, 2024 End: April 24, 2024 Security Operations Manager Relationship Specialty Start Date End Date Beck Tee Jr. [address] [place] [address] [place] [phone] PCP - General Family Practice 12/25/21 Security Operations Manager Relationship Specialty Start Date End Date Beck Tee Jr. [address] [place] [place] [address] PCP - General Family Practice 12/25/21 Security Operations Manager Relationship Specialty Start Date End Date Beck Tee Jr. [address] [place] [place] [address] PCP - General Family Practice 12/25/21 Security Operations Manager Relationship Specialty Start Date End Date Beck Tee Jr. [address] [place] [place] [address] PCP - General Family Practice 12/25/21 Team Status: Inactive Member Role Status Arash Perkinsjuanjoselibby , Primary Care Provider Active CHRISTOPH Stewart Attending Provider Active Security Operations Manager Relationship Specialty Start Date End Date Beck Tee Jr. [address] [place] [address] PCP - General Family Medicine 12/25/21 Jacki Baird, COUNCILPERSON [address] [place] [place] [address] Referring Family Medicine 03/26/23 Security Operations Manager Relationship Specialty Start Date End Date Beck Tee Jr. [address] [place] [address] PCP - General Family Medicine 12/25/21 Jacki Baird, COUNCILPERSON [address] [place] [address] Referring Family Medicine 03/26/23 Security Operations Manager Relationship Specialty Start Date End Date Beck Tee Jr. [address] [place] [address] PCP - General Family Medicine 12/25/21 Jacki Baird, COUNCILPERSON [address] [place] [place] [address] Referring Family Medicine 03/26/23 Security Operations Manager Relationship Specialty Start Date End Date Beck Tee Jr. [address] [place] [place] [address] [phone] PCP - General Family Medicine 12/25/21 Jacki Baird, COUNCILPERSON [address] [place] [address] Referring Family Medicine 03/26/23 Security Operations Manager Relationship Specialty Start Date End Date Beck Tee , DO [address] [place] [phone] PCP - General Family Medicine 12/25/21 Jacki Baird, COUNCILPERSON [address] [place] [address] Referring Family Medicine 03/26/23 Security Operations Manager Relationship Specialty Start Date End Date Beck Tee , DO [address] [place] [phone] PCP - General Family Medicine 12/25/21 Jacki Baird, COUNCILPERSON [address] [place] [address] Referring Family Medicine 03/26/23 Security Operations Manager Relationship Specialty Start Date End Date Beck Tee Jordon Ruiz, DO [address] [place] [address] PCP - General Family Medicine 12/25/21 Jacki Baird, COUNCILPERSON [address] [place] [address] Referring Family Medicine 03/26/23 Security Operations Manager Relationship Specialty Start Date End Date PiyushlibbyBeck Jr., DO [address] [place] [phone] PCP - General Family Medicine 12/25/21 Jacki Baird, COUNCILPERSON [address] [place] [address] Referring Family Medicine 03/26/23 Security Operations Manager Relationship Specialty Start Date End Date Beck Tee Jr., DO [address] [place] [address] PCP - General Family Medicine 12/25/21 Jacki Baird, COUNCILPERSON [address] [place] [address] Referring Family Medicine 03/26/23 Security Operations Manager Relationship Specialty Start Date End Date JohnathanjuanjoseBeck souza Jr., DO [address] [place] [address] PCP - General Family Medicine 12/25/21 Jacki Baird, COUNCILPERSON [address] [place] [address] Referring Family Medicine 03/26/23 Security Operations Manager Relationship Specialty Start Date End Date Beck Tee Jr., DO [address] [place] [address] PCP - General Family Medicine 12/25/21 Jacki Baird, COUNCILPERSON [address] [place] [address] Referring Family Medicine 03/26/23 Security Operations Manager Relationship Specialty Start Date End Date Beck Tee Jr., DO [address] [place] [phone] PCP - General Family Medicine 12/25/21 Jacki Baird, COUNCILPERSON [address] [place] [address] Referring Family Medicine 03/26/23 Security Operations Manager Relationship Specialty Start Date End Date Beck Tee, DO [address] [place] [address] PCP - General Family Medicine 04/23/23 Security Operations Manager Relationship Specialty Start Date End Date Beck Tee Jr., DO [address] [place] [phone] PCP - General Family Medicine 12/25/21 Jacki Baird, COUNCILPERSON [address] [place] [address] Referring Family Medicine 03/26/23 Security Operations Manager Relationship Specialty Start Date End Date Beck Tee Jr., DO [address] [place] [address] PCP - General Family Medicine 12/25/21 Jacki Baird, COUNCILPERSON [address] [place] [address] Referring Family Medicine 03/26/23 Security Operations Manager Relationship Specialty Start Date End Date Beck Tee DO [address] [place] [address] PCP - General Family Medicine 04/23/23 Security Operations Manager Relationship Specialty Start Date End Date Beck Tee Jr., DO [address] [place] [phone] PCP - General Family Medicine 12/25/21 Jacki Baird, COUNCILPERSON [address] [place] [address] Referring Family Medicine 03/26/23 Security Operations Manager Relationship Specialty Start Date End Date Beck Tee Jr., DO [address] [place] [address] PCP - General Family Medicine 12/25/21 Jacki Barid, COUNCILPERSON [address] [place] [address] Referring Family Medicine 03/26/23 Security Operations Manager Relationship Specialty Start Date End Date Beck Tee Jr., DO [address] [place] [address] PCP - General Family Medicine 12/25/21 Jacki Baird, COUNCILPERSON [address] [place] [address] Referring Family Medicine 03/26/23 Antoni Palmer [address] [place] [address] Obstetrics 09/15/24 Security Operations Manager Relationship Specialty Start Date End Date Beck Tee Jr., DO [address] [place] [address] PCP - General Family Medicine 12/25/21 Jacki Baird, COUNCILPERSON [address] [place] [address] Referring Family Medicine 03/26/23 Antoni Palmer [address] [place] [address] Obstetrics 09/15/24 Security Operations Manager Relationship Specialty Start Date End Date Beck Tee Jr., DO [address] [place] [phone] PCP - General Family Medicine 12/25/21 Jacki Baird, COUNCILPERSON [address] [place] [address] Referring Family Medicine 03/26/23 Antoni Palmer [address] [place] [address] Obstetrics 09/15/24 Security Operations Manager Relationship Specialty Start Date End Date Beck Tee Jr., DO [address] [place] [phone] PCP - General Family Medicine 12/25/21 Jacki Baird, COUNCILPERSON [address] [place] [address] Referring Family Medicine 03/26/23 Antoni Palmer [address] [place] [address] Obstetrics 09/15/24 Security Operations Manager Relationship Specialty Start Date End Date Beck Tee Jr., DO [address] [place] [address] PCP - General Family Medicine 12/25/21 Jacki Baird, COUNCILPERSON [address] [place] [address] Referring Family Medicine 03/26/23 Antoni Palmer [address] [place] [address] Obstetrics 09/15/24 Security Operations Manager Relationship Specialty Start Date End Date Beck Tee Jr., DO [address] [place] [address] PCP - General Family Medicine 12/25/21 Jacki Baird, COUNCILPERSON [address] [place] [address] Referring Family Medicine 03/26/23 Antoni Palmer [address] [place] [address] Obstetrics 09/15/24 Security Operations Manager Relationship Specialty Start Date End Date Beck Tee Jr., DO [address] [place] [phone] PCP - General Family Medicine 12/25/21 Jacki Baird, COUNCILPERSON [address] [place] [address] Referring Family Medicine 03/26/23 Antoni Palmer [address] [place] [address] Obstetrics 09/15/24 Security Operations Manager Relationship Specialty Start Date End Date Beck Tee Jr., DO [address] [place] [phone] PCP - General Family Medicine 12/25/21 Jacki Baird, COUNCILPERSON [address] [place] [address] Referring Family Medicine 03/26/23 Antoni Palmer [address] [place] [address] Obstetrics 09/15/24 Security Operations Manager Relationship Specialty Start Date End Date Beck Tee Jr., DO [address] [place] [phone] PCP - General Family Medicine 12/25/21 Jacki Baird, COUNCILPERSON [address] [place] [address] Referring Family Medicine 03/26/23 Antoni Palmer [address] [place] [address] Obstetrics 09/15/24 Security Operations Manager Relationship Specialty Start Date End Date Beck Tee DO [address] [place] [address] PCP - General Family Medicine 04/23/23 Security Operations Manager Relationship Specialty Start Date End Date Beck Tee Jr., DO [address] [place] [address] PCP - General Family Medicine 12/25/21 Jacki Baird, COUNCILPERSON [address] [place] [address] Referring Family Medicine 03/26/23 Antoni Palmer [address] [place] [address] Obstetrics 09/15/24 Security Operations Manager Relationship Specialty Start Date End Date JohnathanBeck aparicio Jr., DO [address] [place] [phone] PCP - General Family Medicine 12/25/21 Jacki Baird, COUNCILPERSON [address] [place] [address] Referring Family Medicine 03/26/23 Antoni Palmer [address] [place] [address] Obstetrics 09/15/24 Security Operations Manager Relationship Specialty Start Date End Date Beck Tee Jr., DO [address] [place] [phone] PCP - General Family Medicine 12/25/21 Jacki Baird, COUNCILPERSON [address] [place] [address] Referring Family Medicine 03/26/23 Antoni Palmer [address] [place] [address] Obstetrics 09/15/24 Security Operations Manager Relationship Specialty Start Date End Date Beck Tee Jr., DO [address] [place] [address] PCP - General Family Medicine 12/25/21 Jacki Baird, COUNCILPERSON [address] [place] [address] Referring Family Medicine 03/26/23 Antoni Palmer [address] [place] [address] Obstetrics 09/15/24 Security Operations Manager Relationship Specialty Start Date End Date Beck Tee DO [address] [place] [address] PCP - General Family Medicine 04/23/23 Security Operations Manager Relationship Specialty Start Date End Date Beck Tee DO [address] [place] [address] PCP - General Family Medicine 04/23/23 Security Operations Manager Relationship Specialty Start Date End Date Beck Tee DO [address] [place] [address] PCP - General Family Medicine 04/23/23 Security Operations Manager Relationship Specialty Start Date End Date Beck Tee Jr., DO [address] [place] [phone] PCP - General Family Medicine 12/25/21 Jacki Baird COUNCILPERSON [address] [place] [address] Referring Family Medicine 03/26/23 Antoni Palmer [address] [place] [address] Obstetrics 09/15/24 Security Operations Manager Relationship Specialty Start Date End Date Beck Tee Jr., DO [address] [place] [phone] PCP - General Family Medicine 12/25/21 Jacki Baird, COUNCILPERSON [address] [place] [address] Referring Family Medicine 03/26/23 Antoni Palmer [address] [place] [address] Obstetrics 09/15/24 Security Operations Manager Relationship Specialty Start Date End Date Beck Tee Jr., DO [address] [place] [phone] PCP - General Family Medicine 12/25/21 Jacki Baird, COUNCILPERSON [address] [place] [address] Referring Family Medicine 03/26/23 Antoni Palmer [address] [place] [address] Obstetrics 09/15/24 Security Operations Manager Relationship Specialty Start Date End Date Beck Tee Jr., DO [address] [place] [address] PCP - General Family Medicine 12/25/21 Jacki Baird, COUNCILPERSON [address] [place] [address] Referring Family Medicine 03/26/23 Antoni Palmer [address] [place] [address] Obstetrics 09/15/24 Security Operations Manager Relationship Specialty Start Date End Date Beck Tee Jr., DO [address] [place] [address] PCP - General Family Medicine 12/25/21 Jacki Baird, COUNCILPERSON [address] [place] [address] Referring Family Medicine 03/26/23 Estela Antoni Papi [address] [place] [address] Obstetrics 09/15/24 Security Operations Manager Relationship Specialty Start Date End Date Beck Tee DO [address] [place] [address] PCP - General Family Medicine 04/23/23 Security Operations Manager Relationship Specialty Start Date End Date Beck Tee DO [address] [place] [address] PCP - General Family Medicine 04/23/23 Security Operations Manager Relationship Specialty Start Date End Date Beck Tee DO [address] [place] [address] PCP - General Family Medicine 04/23/23 INFORMATION SOURCE (unrecogn ized section and content) DATE CREATED AUTHOR 06/07/2022 [facility] dical Specialist DATE CREATED AUTHOR AUTHOR'S ORGANIZ ATION 01/04/2023 [facility] DATE CREATED AUTHOR AUTHOR'S ORGANIZ ATION 02/24/2023 [facility] DATE CREATED AUTHOR AUTHOR'S ORGANIZ ATION 10/07/2024 [facility] DATE CREATED AUTHOR AUTHOR'S ORGANIZ ATION 11/21/2024 [facility] DATE CREATED AUTHOR AUTHOR'S ORGANIZ ATION 01/06/2025 [facility] DATE CREATED AUTHOR AUTHOR'S ORGANIZ ATION 01/09/2025 [facility] dical Specialists EPIC Goals (unrecognized section and content) Goals may be documented in a n alternate section FOR RECORDS PERTAINING TO PATIENTS WHO ARE OR HAVE BEEN ENROLLED IN A CHEMICAL DEPENDENCY/SUBSTANCEABUSE PROGRAM, SOME INFORMATION MAY BE OMITTED. This clinical summary was aggregated from multiple sources. Caution should be exercised in using it in the provision of clinical care. This summary normalizes information from multiple sources, and as a consequence, information in this document may materially change the coding, format and clinical context of patient data. In addition, data may be omitted in some cases. CLINICAL DECISIONS SHOULD BE BASED ON THE PRIMARY CLINICAL RECORDS. [facility] [employer] [facility]. provides no warranty or guarantee of the accuracy or completeness of information in this document.
== END 2025-01-24 21:16 | disposition home or self-care (01) ==
LOC: LAB 21:15
PROVIDERS: PCP Family Medicine; Visit Provider Obstetrics & Gynecology
DX: Z01.419 Encounter for gynecological examination (general) (routine) without abnormal findings (principal)
CPT/HCPCS: 87624; 88175

== ENCOUNTER 2025-03-13 19:17 | Emergency (ER) | payer MEDICAID, SELFPAY ==
[2025-03-13 19:21] VITALS: BP 150/94; PULSE 98; TEMP 36.8; O2SAT 98; BMI 32.3
--- OUTSIDE RECORDS SUMMARY | 2025-03-13 19:28 | XMS_ITS | CCD ---
Author Organization [facility] Care Team Providers Care Flight Service Specialist Name Role Phone Unavailable Primary Care Provider UnavailBeck Sheehan Jr. Primary Care Provider Bill Yusuf Unavailable Yared Pisano Unavailable DO Vanna Tee Primary Care Provider CHRISTOPH Baird Attending Provider [phone] Vanna Tee Primary Care Unavailable Jacki Baird Attending Unavailable Jacki Baird Admitting Unavailable Blil Yusuf Admitting Unavailable Vanna Tee Primary Care Unavailable Bill Yusuf Attending Unavailable Vanna Tee Primary Care Unavailable Bill Yusuf Attending Unavailable Bill Yusuf Admitting Unavailable DR Bryce TEE Primary Care Unavailable GIBRAN VALERIO Admitting Unavailable GIBRAN VALERIO Attending Unavailable GIBRAN VALERIO Consulting Unavailable NAN VILLAGRAN Consulting Unavailable Beck Tee Jr. Primary Care Provider Jacki Baird CNP Unavailable Jacki Baird CNP Unavailable Randal Ruiz DO, George Robert Primary Care Provi anshul Randal Ruzi DO, George Robert Primary Care Provi anshul Beck Tee DO Primary Care Provider Jacki Baird CNP Unavailable Antoni Palmer Unavailable ARLIN HASTINGS Attending Unavailable MATHIEU PROCTOR Attending Unavailable BECK TEE Attending Unavailable BECK TEE Referring Unavailable BECK TEE Attending Unavailable BECK TEE JR Primary Care Unavail able RANDAL KAYBECK Primary Care Unavail able JOHNATHANBOB BECK KAY Primary Care Unavail able JOHNATHANBBO BECK KAY Primary Care Unavail able RANDAL BECK KAY Primary Care Unavail able DILMA MONTES Referring Unavailable BECK TEE JR Primary Care Unavail able BECK TEE JR Primary Care Unavail able JOHNATHANBOB BECK KAY Referring Unavail able DILMA MONTES Attending Unavailable RANDAL KAYBECK Primary Care Unavail able ORLANDO TORRES Attending Unavailable RANDAL KAYBECK Primary Care Unavail able SADMAK ELIZABETH Referring Unavailable RANDAL KAYBECK Primary Care Unavail able DILMA MONTES Referring Unavailable RANDAL KAYBECK Primary Care Unavail able SADGLENN, MAK Referring Unavailable RANDAL BECK KAY Primary Care Unavail able RANDAL KAYBECK Primary Care Unavail able SADGLENN, MAK Referring Unavailable RANDAL KAYBECK Primary Care Unavail able MAK MARTINEZ Attending Unavailable RANDAL KAYBECK Primary Care Unavail able SADGLENN, MAK Referring Unavailable RANDAL KAYBECK Primary Care Unavail able DILMA MONTES Referring Unavailable SADMAK ELIZABETH Attending Unavailable RANDAL KAYBECK Primary Care Unavail able RANDAL KAYBECK Primary Care Unavail able RANDAL KAYBECK Primary Care Unavail able SADGLENN, MAK Referring Unavailable SADMAK ELIZABETH Attending Unavailable RANDAL KAYBECK Primary Care Unavail able SADGLENN, MAK Referring Unavailable JOSE ARMANDO STERLING Admitting Unavailable JOHNATHANBOB KAYBECK Primary Care Unavail able YURIY PACK Attending Unavailable MAK MARTINEZ Consulting Unavailable DERIC RALPH Referring Unavailab neftali TEE JRBECK Primary Care Unavail able JERED MONTGOMERY Attending Unavailable RANDAL KAYBECK Primary Care Unavail able SADGLENN, MAK Referring Unavailable RANDAL KAYBECK Primary Care Unavail able MAK MARTINEZ Referring Unavailable Allergies Allergy Classification Reported Allergen(s) Allergy Type Date of Onset Reaction(s) Facility (6 sources) azaTHIOprine; Translations: [AZATHIOPRINE] Drug Allergy 03-05-2025 Rash [facility] (6 sources) ozanimod; Translations: [OZANIMOD] Drug Allergy 03-05-2025 Other: See Comments [facility] Medications Current Medications Medication Drug Class(es) Dates [...] for up to 10 days 20 tablet 02/28/2025 03/10/2025 Active Start: 12-13-2024 End: 01-24-2025 take 1 tablet by mouth twice daily as needed for anxiety clonazePAM (KlonoPIN) 0.5 MG tablet Indications: Anxiety Take 1 tablet (0.5 mg) by mouth 2 (two) times a day as needed for anxiety for up to 10 days 20 tablet 01/14/2025 Active Start: 11-01-2024 End: 11-26-2024 take 1 [...] sources) Serotonin and Norepinephrine Reuptake Inhibitor Start: 025 take 2 tablets by mouth once daily desvenlafaxine (Pristiq) 50 MG 24 hr tablet Indications: Anxiety Take 2 tablets (100 mg) by mouth Daily 60 tablet 5 01/07/2025 Active Start: 09-29-2024 desvenlafaxine ER (PRISTIQ) 50 mg 24 hr tablet Take 100 mg by mouth. 09/29/2024 Active Start: 08-20-2024 End: 08-20-2025 take 1 [...] mg by mouth Daily 09/29/2024 01/07/2025 Discontinued enteric contrast (will be provided with radiology test) (5 sources) Start: 12-23-[address] (will be provided with radiology test) For CT ENTEROGRAPHY W IVCON order Administer, As Directed One Time Only, via Oral, Rectal, both Oral and Rectal, Enteric Tube, Stoma or Indwelling Catheter, Enteric Contrast as designated per enteric contrast guidelines. 1 Each 12/23/2024 Active ferrous sulfate (16 sources) Start: 09-11-2021 take 1 tablet by mouth twice daily Ferrous Sulfate 325 (65 Fe) MG 1 tablet Orally bid for 30 day(s) Aug, Active Start: 09-11-2021 take 1 tablet by monica th twice daily FEROSUL 325 mg (65 mg iron) tablet Take 1 tablet by mouth twice daily. 0 09/11/2021 Active Start: 09-11-2021 take 1 tablet by monica th every twelve hours Ferrous Sulfate 325 (65 Fe) MG 1 tablet Orally bid for 30 day(s) Aug, Active Comment on above: Take 1 tablet by monica th twice daily. fluticasone propionate 0.05 mg/actuat metered dose nasal spray (20 sources) Corticosteroid Start: End: take 2 spray(s) nasal route once daily fluticasone (Flonase) 50 MCG/ACT nasal spray Indications: Frontal sinusitis, unspecified chronicity Administer 2 sprays into each nostril Daily Shake gently. Before first use, prime pump. After use, clean tip and replace cap. 16 g 08/20/2024 08/20/2025 Active Start: 08-13-2023 End: 08-20-2024 take 2 spray(s) nasal route in the morning fluticasone (Flonase) 50 MCG/ACT nasal spray Indications: Frontal sinusitis, unspecified chronicity Administer 2 sprays into each nostril in the morning. Shake gently. Before first use, prime pump. After use, clean tip and replace cap.. 16 g 08/13/2023 08/20/2024 Discontinued (Reorder) guselkumab (TREMFYA) 200 mg/2 mL syringe (2 sources) Start: 03-11-2025 guselkumab (TREMFYA) 200 mg/2 mL syringe Indications: Crohn's disease of large intestine with other complication (HCC) Inject 400 mg subcutaneously every 4 weeks. Induction dosing - Inject 400 mg at weeks 0, 4, 8. 4 mL 2 03/11/2025 Active guselkumab (TREMFYA) 200 mg/2 mL syringe (2 sources) Start: 03-11-2025 guselkumab (TREMFYA) 200 mg/2 mL syringe Indications: Crohn's disease of large intestine with other complication (HCC) Inject 200 mg subcutaneously every 4 weeks. Maintenance dosing - Starting at week 12, inject 200 mg every 4 weeks. 2 mL 11 03/11/2025 Active hydrOXYzine hydrochloride 25 mg oral tablet (8 sources) Antihistamine Start: 01-07-2025 hydrOXYzine HCl (Atarax) 25 MG tablet Indications: Psychophysiological insomnia Take 1 tablet (25 mg) by mouth in the morning and 1 tablet (25 mg) at noon and 1 tablet (25 mg) in the evening and 1 tablet (25 mg) before bedtime. 50 tablet 3 01/07/2025 Active ibuprofen 800 mg oral tablet (20 sources) Nonsteroidal Anti-inflammatory Drug Start: 02-08-2025 take 1 tablet by mouth three times daily as needed for pain ibuprofen 800 MG tablet Indications: Ulcerative colitis with complication, unspecified location (CMS/HCC) , Migraine without aura and without status migrainosus, not intractable (CMS/HCC) , Cervicalgia Take 1 tablet (800 mg) by mouth 3 (three) times a day as needed for mild pain, moderate pain or headaches 40 tablet 1 02/08/2025 Active Start: 06-14-2024 take 1 tablet by monica th three times daily as needed for pain [...] ve MG PO April 24, 2024 12:00am iv contrast (will be provided with radiology test) (5 sources) Start: 12-23-2024 iv contrast (w ill be provided with radiology test) CT Enterography W Inject, intravenously, once for 1 dose.No IV access, insert saline lock prior to the beginning of sedation, infusion, injection of imaging exam. Discontinue saline lock post exam. If Pt. has a central line or IVAD, may access for administration according to line specific nursing protocol. Once exam is complete flush line and de-access according to line specific nursing protocol in the CT contrast administration guidelines link. 1 Each 12/23/2024 Active methylPREDNISolone (4 sources) Corticosteroid Start: 08-20-2024 End: [...] FILE FROM 05/21/22 TO 05/21/23 AUTH # [id number] May, Active predniSONE 20 mg oral tablet [...] then stop. Take 6 tablets by mo [facility] once daily for 7 days, THEN 5 tablets once daily for 7 days, THEN 4 tablets once daily for 60 days, THEN 3 tablets once daily for 7 days, THEN 2 tablets once daily for 7 days. [facility] risankizumab-rzaa (SKYRIZI) 360 mg/2.4 mL (150 mg/mL) wearable injector (20 sources) Start: 09-06-2024 risankizumab-rzaa (SKYRIZI) 360 mg/2.4 mL (150 mg/mL) wearable injector Indications: Ulcerative pancolitis without complication (HCC) Inject 360 mg subcutaneously every 8 weeks. 2.4 mL 5 12/27/2024 12:04 PM EST 09/06/2024 Active Start: 09-06-2024 risankizumab-r zaa (SKYRIZI) [...] Active Risankizumab-rzaa (Skyrizi) 360 MG/2.4ML solution cartridge (16 sources) Start: 09-06-2024 Risankizumab-r zaa (Skyrizi) 360 [...] DAYS for 56 days PRIOR AUTH NUMBER [id number] GOOD UNTIL 11/15/22 Oct, Active Start: 11-20-2021 [...] extended release oral tablet (2 sources) Start: take 0.375 mg by mouth every twelve [...] 200 mg, INTRAVENOUS, ONCE, 1 dose, On 10/11/24 at 1600, Please conduct a 30 minute post dose observation. Start: 10-05-2024 End: 10-05-2024 200 mg, INTRAVENOUS, ONCE, 1 dose, On 10/05/24 at 1500, Please conduct a 30 minute post dose observation. Start: 10-01-2024 End: 10-01-2024 200 mg, INTRAVENOUS, ONCE, 1 dose, On 10/01/24 at 1430, Please conduct a 30 minute post dose observation. Start: 09-24-2024 End: 09-24-2024 200 mg, INTRAVENOUS, ONCE, 1 dose, On 09/24/24 at 1600, Please conduct a 30 minute [...] TO AFFECTED AREA Take 1 tablet by monica three times a day. Take 1 tablet at 6pm, 7pm, and 11pm, the evening prior to surgery. neomycin sulfate 500 mg oral tablet (6 sources) Aminoglycoside Antibacterial Start: End: neomycin 500 mg tablet Indications: Ulcerative colitis with complication, unspecified location (HCC) Take 2 tablets by mouth as directed. Take 2 tablet at 6pm, 7pm, and 11pm the evening prior to surgery. 6 tablet 0 01/09/2024 05/21/2024 Discontinued (Course of therapy completed) Comment on above: Take 2 tablets by mo [facility] as directed. Take 2 tablet at 6pm, [...] Tramadol Discontinued 50 MG PO Twice daily 10 March 17, 2019 12:00am June 05, 2019 10:25pm vancomycin 50 mg/ml oral solution (2 sources) Glycopeptide Antibacterial Start: 03-17-2019 End: 06-05-2019 Vancomycin (Firvanq) 50 mg/mL Recon Soln Discontinued 125 MG PO Four times daily 70 March 17, 2019 12:00am June 05, 2019 10:25pm vedolizumab 300 mg injection (2 sources) Integrin Receptor Antagonist Start: 06-09-2020 End: 2021 Vedolizumab (Entyvio) 300 mg Recon Soln Discontinued 300 MG IV EVERY 8 WEEKS June 09, 2020 12:00am 2021 1:21am Problems Active Problems Problem Classification Problem Date Documented Da te Episodic/Chronic Acute and chronic tonsillitis (15 sources) Amygdalolith; [...] sources) Fever; Translations: [Fever, unspecified] 06-07-2019 Episodic Headache; including migraine (20 sources) Migraine; Translations: [Migraine, unspecified, not intractable, without status migrainosus] Onset: 3 04-03-2023 Chronic Miscellaneous mental health disorders (2 sources) Psychophysiologic insomnia; Translations: [Psychophysiologic insomnia] 01-07-2025 Chronic Mood disorders (20 sources) Depressive disorder; Translations: [Depression] 08-20-2024 Chronic Nausea and vomiting (20 sources) Nausea and vomiting; Translations: [Nausea with vomiting, unspecified] 06-07-2019 Episodic Other aftercare (2 sources) Long-term current use of drug therapy; Translations: [retirement (current) use of immunomodulator] 12-12-2023 Episodic Other aftercare (1 source) Long-term current use of systemic steroid; Translations: [retirement (current) use of systemic steroids] 05-21-2024 Episodic Other congenital anomalies (20 sources) Keratoderma; Translations: [Other specified congenital malformations of skin] Onset: 3 08-13-2023 Chronic Other gastrointestinal disorders (16 sources) Hemorrhagic diarrhea ; Translations: [Diarrhea, unspecified] 09-28-2024 Episodic Other gastrointestinal disorders (2 sources) Bacterial growth present; Translations: [Other fecal abnormalities] 06-07-2019 Episodic Other gastrointestinal disorders (3 sources) Diarrhea, unspecified; Translations: [DIARRHEA UNSPECIFIED] Onset: 3 Episodic Other gastrointestinal disorders (1 source) Constipation; Translations: [Constipation, unspecified] 03-05-2025 Episodic Other inflammatory condition of skin (2 sources) Erythema nodosum; Translations: [Erythema nodosum] 06-06-2019 Episodic Other nutritional; endocrine; and metabolic disorders (20 sources) Hypoproteinemia; Translations: [Other disorders of glycoprotein metabolism] Onset: 3 08-13-2023 Chronic Other nutritional; endocrine; and metabolic disorders (20 sources) Obesity; Translations: [Obesity, unspecified] Onset: 4 09-29-2024 Chronic Other nutritional; endocrine; and metabolic disorders (20 sources) Obese class I; Translations: [Obesity, Class I, BMI 30-34.9] Onset: 4 10-01-2024 Chronic Other nutritional; endocrine; and metabolic disorders (2 sources) Decrease in appetite; Translations: [Anorexia] 06-07-2019 Episodic Other screening for suspected conditions (not mental disorders or infectious disease) (2 sources) Patient encounter status; Translations: [Encounter for screening mammogram for malignant neoplasm of breast] 01-24-2025 Episodic Other upper respiratory infections (2 sources) Frontal sinusitis; Translations: [Chronic frontal sinusitis] 08-20-2024 Chronic Other upper respiratory infections (3 sources) Upper respiratory infection; Translations: [Acute upper respiratory infection, unspecified] Onset: 2 09-08-2021 Episodic Regional enteritis and ulcerative colitis (20 sources) Ulcerative colitis; Translations: [Ulcerative colitis, unspecified, without complications] Onset: 1 Resolved: 5 Chronic Residual codes; unclassified (1 source) Appointment canceled by hospital; Translations: [Procedure and treatment not carried out for other reasons] Episodic Substance-related disorders (20 sources) Nicotine dependence; Translations: [Nicotine dependence, unspecified, uncomplicated] Onset: 3 04-03-2023 Chronic Unclassified (1 source) K51.00 - Ulcerative (chronic) pancolitis without complications; Translations: [K51.00 - Ulcerative (chronic) pancolitis without complications] Onset: 2 Unclassified (1 source) Z79.899 - Other intermediate teacher (current) drug therapy; Translations: [Z79.899 - Other prison (current) drug therapy] Onset: 2 Unclassified (1 source) CONTACT W/AND (SUSP) EXPOS COVID-19; Translations: [CONTACT W/AND (SUSP) EXPOS COVID-19] Onset: 3 Unclassified (1 source) 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 care registered nurse (current) use of immunomodulator; Translations: [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 care registered nurse (current) use of immunomodulator] Onset: 4 Past or Other Problems Problem Classification Problem Date Documented Da te Episodic/Chronic Abdominal pain (18 sources) Abdominal pain; Translations: [Unspecified abdominal pain] Onset: 4 03-13-2019 Episodic Fluid and electrolyte disorders (20 sources) Hypokalemia; Translations: [Hypokalemia] Onset: 4 09-29-2024 Episodic Gastrointestinal hemorrhage (3 sources) Gastrointestinal hemorrhage; Translations: [Gastrointestinal hemorrhage, unspecified] Onset: 4 03-13-2019 Episodic Intestinal infection (20 sources) Clostridium difficile colitis; Translations: [Enterocolitis due to Clostridium difficile, not specified as recurrent] Onset: 3 Resolved: 5 04-03-2023 Episodic Malaise and fatigue (3 sources) Malaise and fatigue; Translations: [Other malaise] Onset: 4 09-17-2024 Episodic Neoplasms of unspecified nature or uncertain behavior (20 sources) Thrombocytosis; Translations: [Thrombocytosis] Onset: 4 09-29-2024 Episodic Noninfectious gastroenteritis (20 sources) Colitis; Translations: [Noninfective gastroenteritis and colitis, unspecified] Onset: 4 03-04-2025 Episodic Other aftercare (2 sources) Other prison (current) drug therapy Onset: 2 Resolved: 2 Episodic Other infections; including parasitic (3 sources) Personal history of other infectious and parasitic diseases; Translations: [Personal history of other infectious and parasitic diseases] Onset: 4 03-05-2025 Episodic Residual codes; unclassified (20 sources) Nicotine-filled electronic cigarette user; Translations: [Tobacco use] Onset: 3 04-03-2023 Episodic Spondylosis; intervertebral disc disorders; other back problems (20 sources) Chronic neck pain; Translations: [Cervicalgia] Onset: 3 04-03-2023 Episodic Viral infection (4 sources) Viral infection, unspecified; Translations: [Herpes zoster] Onset: 3 04-24-2024 Episodic Results Test Name Value Interpretation Reference Range Facility [facility] 03-04-2025 CNOV Office Visit (GASTNO ) ANGELA ELAM ([id number]) 1980 F Date Time Provider Department 03/04/25 11:30 AM MAK MARTINEZ During your visit today, we recorded the following information about you: Pulse Blood pressure Weight 98/minute 118/79 92 kg Mak Martinez MD 03/05/2025 4:47 PM Signed GI FOLLOW UP OFFICE VISIT REASON FOR VISIT: IBD, unspecified type PATIENT SUMMARY: Agnela Elam is a 44 year old female with a history of tobacco use and recurrent C. Diff colitis (2018, 2022) who presents to the GI clinic for IBD follow up She was diagnosed initially with UC in 2018. She tried mesalamine, Humira (didn't seem to work after 3 doses), Entyvio x 1 year (afforded partial control), Stelara (initially every 8 weeks then every 6 weeks) and Zeposia (intolerable d/t visual disturbances). Most recently, she tried Remicade in 2022, but was found to have low IFX levels and low-positive Ab titers, so her dose was increased from 5 to 10 mg/kg and Imuran was added. She stopped Imuran after she developed a rash and decided to stop Remicade on her own after this because she felt like it wasn't working. She saw Dr. Jc on 01/08/24 and was ready to proceed with surgery, but postponed this because she was taking care of her niece without much help at home. She was worried about post-surgical recovery. 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 diff twice on biologic therapy. She also had shingles in early 2023. Last GI appointment was virtual in 05/2024. Since she couldn't proceed with surgery, she was interested in medical therapy. Skyrizi was recommended, but delayed due to insurance denials. She was subsequently admitted to in 10/2024 with severe diarrhea and rectal bleeding prior to starting Skyrizi. 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 Biopsies were positive for CMV. She completed treatment with valganciclovir. She started Skyrizi in 10/2024. Repeat flex sig in 12/2024 showed persistent severe proctosigmoiditis with stricturing, but biopsies were negative for CMV. On both exams, the gastroscope could not traverse this stricture. INTERVAL HISTORY: has not been feeling well. She reports a significant change in bowel habits over the past two months, characterized by daily small, incomplete bowel movements. She feels constipated, but stools are not hard. She also reports bloating and excessive flatulence. In an attempt to alleviate her symptoms, she performed a self-administered colonoscopy prep last Friday, which resulted in temporary relief. She denies hematochezia, vomiting and overt abdominal pain. She has been modifying her diet to avoid high-fiber foods, dairy, and non-natural sugars, noting that certain foods like broccoli and apples exacerbate her symptoms. Her weight is stable. She is off steroids. Her other concern is new, [id number] joint pain since starting Skyrizi. She has been on Skyrizi for the past 4-6 months, and reports that her joint pain began around this time, but worsened approximately two months ago, coinciding with her last injection. The pain affects multiple joints, including her knees, hips, elbows, and shoulders, and is most severe upon waking and after periods of inactivity. She currently manages the pain with Tylenol. She notes that this joint pain is distinct from the lower leg pain she has experienced during previous flares. Feels that it's related to Skyrizi. 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 She reports that her mother has been providing more support recently, making it easier for her to attend medical appointments. She is currently awaiting a CT enterography scheduled for the and has a follow-up appointment with Dr. Jc on the to discuss surgical options. Past Clinical Work-up: Sigmoidoscopy: 12/17/24: Suspected Crohn's disease, assessment for response to treatment of CMV colitis: - Severe, non-traversible stricture in the sigmoid colon. Biopsied. - Mild scattered inflammation found in the rectum and in the sigmoid colon secondary to inflammatory bowel disease. Biopsied. - Small internal hemorrhoids. Pathology: A. Sigmoid stricture, biopsy: -Moderate chronic active colitis B. Left colon, biopsy: -Moderate chronic active colitis Latest Ref Rng 09/29/2024 10/09/2024 11/04/2024 12/03/2024 Protein, Total 6.3 - 8.0 g/dL 6.5 6.1 (L) 6.6 6.7 Albumin 3.9 - 4.9 g/dL 4.0 4.0 4.2 4.4 Calcium 8.5 - 10.2 mg/dL 9.5 8.8 Bilirubin, Total 0.2 - 1.3 mg/dL <0.2 (L) 0.2 <0.2 (L) 0.2 Alkaline Phosphatase 34 - 123 U/L 58 52 57 57 AST 13 - 35 U/L 13 16 21 13 ALT 7 - 38 U/L 20 18 24 15 Glucose 74 - 99 mg/dL 116 (H) 91 BUN 7 - 21 mg/dL 17 13 Creati (more content not included)... Normal [facility] CNPNon 03-04-2025 CNPN Refill (SALOME) ANGELA ELAM ([id number]) 1980 F Date Time Provider Department 03/04/25 MAK MARTINEZ During your visit today, we recorded the following information about you: Melanie Lechuga RN 03/04/2025 12:47 PM Signed Patient is switching from Skyrizi to Tremfya. Skyrizi isn't working and causing pretty bad joint pain. Will fill out Tremfya With Me paperwork and fax in. AUSTIN Whaley Chelsea A, RN 03/08/2025 12:42 PM Addendum Mak Martinez MD Sarkauskas, Chelsea A, RN I'm suspecting that she now has Crohn's disease based on a recently-diagnosed sigmoid stricture. She will need Crohn's-specific dosing for Tremfya. Let me know if you have any questions about this. Patient's diagnosis changed to Crohn's. New Tremfya with Me paperwork filled out and faxed in. AUSTIN Whaley Chelsea A, RN 03/09/2025 12:34 PM Signed Called and informed Luis at [facility] that diagnosis was changed to Crohn's and a new order/enrollment form was sent. AUSTIN Whaley Chelsea A, RN 03/10/2025 9:23 AM Signed Luis advised that he spoke to his team at [facility] and they should be reaching out to patient within the next 24 hours to set up delivery of Tremfya. Attempted to contact patient. No answer. Left voicemail advising patient that [facility] would be reaching out within the next 24 hours and they must speak to her on the phone in order to ship the medication. Advised the caller ID should say something like [facility] With Me. Left office phone number for patient to call back with questions or concerns. Will send [facility] message as well. AUSTIN Whaley Chelsea A, RN 03/10/2025 5:02 PM Signed Luis from [facility] called. States since patient is a Medicaid patient she does not qualify for the trial. We will need to do a PA with [facility]. On the PA we need to be sure to indicate that it should be all SQ pen. 400 mg for the first 3 doses then 200 mg. Will complete PA tomorrow. AUSTIN Whaley Chelsea A, RN 03/11/2025 10:21 AM Signed Attempted to do PA through [facility] [facility] Garcia: [id number] K50.118 Crohn's of large intestine with other complication Received the following prompt: NDC is not payable. If patient qualifies for EPSDT consideration (younger than age 21) or if you don't agree with this decision, please submit request by other methods. Instead of choosing the Crohn's starter kit, chose Tremfya 200mg / 2mL auto injector. Garcia: [id number] Will await response. AUSTIN Whaley Chelsea A, RN 03/11/2025 11:32 AM Signed Received clinical questions from CMM. Completed and faxed back. Will await determination. AUSTIN Whaley Chelsea A, RN 03/11/2025 2:08 PM Signed PA for Tremfya was approved. Your PA request for [id number] was approved for 90 days. The PA# assigned is [id number]. Approved Medication: Tremfya AUSTIN Whaley Chelsea A, RN 03/11/2025 3:[address] Martinez, Pended order for Tremfya induction and maintenance dosing to be sent to [facility]. Please review and sign if appropriate. AUSTIN Whaley Chelsea A, RN 03/11/2025 3:14 PM Signed Addended by: MELANIE LECHUGA on: 03/11/2025 03:14 PM Modules accepted: Orders Allergies As of Date: 03/04/2025 (No Known Allergies) Date Reviewed: 03/04/2025 Reviewed by: Zarina Tomlinson MA - Fully Assessed Prescriptions as of 03/11/2025 - desvenlafaxine ER (PRISTIQ) 50 mg 24 hr tablet Take 100 mg by mouth. - iv contrast (will be provided with radiology test) CT Enterography W Inject, intravenously, once for 1 dose.No IV access, insert saline lock prior to the beginning of sedation, infusion, injection of imaging exam. Discontinue saline lock post exam. If Pt. has a central line or IVAD, may access for administration according to line specific nursing protocol. Once exam is complete flush line and de-access according to line specific nursing protocol in the CT contrast administration guidelines link. - enteric contrast (will be provided with radiology test) For CT ENTEROGRAPHY W IVCON order Administer, As Directed One Time Only, via Oral, Rectal, both Oral and Rectal, Enteric Tube, Stoma or Indwelling Catheter,? Enteric Contrast as designated per enteric contrast guidelines. - risankizumab-rzaa (SKYRIZI) 360 mg/2.4 mL (150 mg/mL) wearable injector Inject 360 mg subcutaneously every 8 weeks. - clonazePAM (KLONOPIN) 0.5 mg tablet Take 0.5 mg by mouth two times a day as needed for anxiety. Problem List As Of Date 03/04/2025 Noted Resolved Iron deficiency anemia due to chronic blood los*12/25/2021 Ulcerative pancolitis without complication (HCC*03/31/2023 Anxiety [F41.9] 05/19/2020 Vapes nicotine containing substance [Z72.0] 03/31/2023 Migraines [G43 (more content not included)... Normal [facility] IGP,APTIMA HPV,AGE GDLNon AGE GDLN ACOG TESTING Note . [facility] Comment on above: TESTS RESULT FLAG U NITS REF RANGE LAB Clinician Provided Cytology Information Source.............Cervix;Endocervix No. of containers..01 ThinPrep Vial Age Algo ACOG Dianne... 30-65 01 FLAG LEGEND: L-Low Normal,H-High Normal,LL-Alert Low,HH-Alert High <-Panic Low,>-Panic High,A-Abnormal,AA-Critical Abnormal Performed at: 01 =G [facility] [place] [address] Suzanna Carvajal MD, HPV APTIMA Negative Negative [facility] Comment on above: This nucleic acid am plification test detects fourteen high- risk HPV types (16,18,31,33,35,39,45,51,52,56,58,59,66,68) without differentiation. Performed at: =G - [facility], [place] [address] Weatherization And Housing Inspector: Suzanna Carvajal MD, Phone: [phone] Performed at: - [facility], [place] [address] Weatherization And Housing Inspector: Suzanna Carvajal MD, Phone: [phone] IGP, APTIMA HPV, RFX 16/18,45 Note . [facility] Comment on above: TESTS RESULT FLAG UN ITS REF RANGE LAB DIAGNOSIS: 02 NEGATIVE FOR INTRAEPITHELIAL LESION OR MALIGNANCY. Specimen adequacy: 02 Satisfactory for evaluation. Endocervical and/or squamous metaplastic cells (endocervical component) are present. Performed by: Beata Gardner, Heat Treat Supervisor (ASCP) . 02 Note: Note 02 The Pap smear is a screening test designed to aid in the detection of premalignant and malignant conditions of the uterine cervix. It is not a diagnostic procedure and should not be used as the sole means of detecting cervical cancer. Both false-positive and false-negative reports do occur. Test Methodology: Note 02 This liquid based ThinPrep(R) pap test was screened with the use of an image guided system. HPV Genotype Reflex Note 02 Criteria not met, HPV Genotype not performed. FLAG LEGEND: L-Low Normal,H-High Normal,LL-Alert Low,HH-Alert High <-Panic Low,>-Panic High,A-Abnormal,AA-Critical Abnormal Performed at: 02 [facility] [place] [address] [place] [address] Suzanna Carvajal MD, BRUSH-SPATULA CERVIX ENDOCERVIX [facility] ANES POSTPROC EVALon 025 ANES POSTPROC EVAL HNO ID: [id number] Author: ALEXSANDRA LEHMAN APRN.CRNA Service: Anesthesiology Author Type: Nurse Business Operations Coordinator Type: Anesthesia Postprocedure Evaluation Filed: 12/17/2024 11:47 Note Text: POST ANESTHESIA EVALUATION NOTE : 1980 Procedure Summary Date: 12/17/24 Room / Location: Ambulatory Surgery Anesthesia Start: 1053 Anesthesia Stop: 1104 Procedure: SIGMOIDOSCOPY 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 [...] Anesthesia Observations No Documentation SIGNATURE: Alexsandra Lehman APRN.DEMAND PLANNING ANALYST PATIENT NAME: Angela Elam DATE: December 17, 2024 TIME: 11:47 AM CSN: [id number] Normal [facility] ANES PRE-OPon 12-17-2024 ANES PRE-OP HNO ID: [id number] Author: ALEXSANDRA LEHMAN APRN.CRNA Service: Anesthesiology Author Type: Nurse Business Operations Coordinator Type: Anesthesia Preprocedure Evaluation Filed: 12/17/2024 10:53 Note Text: ANESTHESIOLOGY DAY OF SURGERY NOTE : 1980 Procedure Information Date/Time: 12/17/24 1000 Scheduled providers: Mka Martinez MD; Marlene Garcia RN Procedure: SIGMOIDOSCOPY [...] and consent discussed: yes. Patient / Responsible Republican agrees to proceed: yes Patient / Surrogate [...] December 17, 2024 TIME: 8:05 AM CSN: [id number] Normal [facility] Flexible Sigmoidoscopyon Flexible sigmoidoscopy [facility] Gastrointestinal Endoscopy Patient Name: Angela Elam Procedure Date: 12/17/2024 10:53 AM Date of : 1980 Admit Type: Outpatient Age: 44 Room: [place] [address] Gender: Female Note Status: Professor Of Communication Override Attending MD: Mak Martinez MD, [id number] Procedure: Flexible Sigmoidoscopy Indications: Suspected Crohn's disease of the colon, 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 Refer to note in patient chart for documentation of history and physical. Referring Physician: Mak Martinez MD (Referring MD), Gretta Tee Jr, DO (Referring MD) Medicines: Monitored Anesthesia Care Complications: [...] blood loss was minimal. Normal [facility] Flexible sigmoidoscopy study on 12-17-2024 [facility] Gastrointestinal Endoscopy Patient Name: Angela Elam Procedure Date: 12/17/2024 10:53 AM Date of : 1980 Admit Type: Outpatient Age: 44 Room: [facility]ENDING SALE TO [facility] 2 Gender: Female Note Status: Finalized Attending MD: Mak Martinez MD, [id number] Procedure: Flexible Sigmoidoscopy Indications: Suspected Crohn's disease [...] and re (more content not included)... PROVATION [facility] Radiology Study observation (narrative) [facility] HISTORY PHYSICALon HISTORY PHYSICAL HNO ID: [id number] Author: MAK MARTINEZ MD Service: Gastroenterology Author [...] Gastroenterology and Hepatology [facility] [place] Normal [facility] NURSING PROGon 12-17-2024 NURSING PROG HNO ID: [id number] Author: PHUONG SANCHES, RN Service: Gastroenterology Author Type: Registered Nurse [...] In Department: AMBULATORY SURGERY Normal [facility] NURSING PROG HNO ID: [id number] Author: JASMIN WEBB RN Service: Nursing Author [...] In Department: AMBULATORY SURGERY Normal [facility] SURGICAL PATHOLOGYon 025 ADDENDUM 1: Normal [facility] Comment on above: Order Comment: Speci men Type: BLOOD SPECIMEN Ordering Facility: [facility] Address: [address] [place] [address] Result Comment: CMV stains on block B1 and B2 are negative. Laboratory Developed Test (LDT) Disclaimer: Performance characteristics of immunohistochemical, immunofluorescent and chromogenic in-situ hybridization tests have been determined by the performing laboratory within [facility]???s Clay Cespedes Pathology and Laboratory Medicine Department ([facility], [facility], [facility], [facility], [facility], [facility], or [facility]) in a manner consistent with CLIA [...] 12/24/2024 at 3:04 PM Performed By: #### C MVQNT #### [facility] CLIA [id number] [address] [place] [address] OF NISA CASE REPORT Normal [facility] Comment on above: Order Comment: Ayaka farrell Type: BLOOD SPECIMEN Ordering Facility: [facility] Address: [address] [place] [address] Result Comment: Surg ica Pathology Report Case: [id number] Authorizing Provider: Mak Martinez MD Collected: 12/17/2024 10:59 AM Ordering Location: Ambulatory Surgery Received: 12/17/2024 11:41 PM Pathologist: Alonzo Arriaza MD Specimens: A) - Colon, Sigmoid, Biopsy, sigmoid stricture r/o dysplasia B) - Colon, Left, Biopsy, r/o chrons, r/o microscopic colitis Performed By: #### C MVQNT #### [facility] CLIA [id number] [address] [place] [address] DIAGNOSIS COMMENT Normal [facility] Comment on above: Order Comment: Ayaka farrell Type: BLOOD SPECIMEN Ordering Facility: [facility] Address: [address] [place] [address] Result Comment: Nega tive for dysplasia, all [...] index for UC. Gut. 2017 Dec;66(1):43-49. doi: 10.1136/efwqsh-7931-667898. 2. Theodore Foley et al. A practical guide to assess the Delmi histological index for UC. Gut. 2016 Nov;65(11):4076-7459. doi: 10.1136/kalzqu-7613-338346. 3. Cy Gardner et al. [facility] Position on harmonization of Crohn's disease mucosal histopathology, Journal of Crohn's and Colitis, 2021;, bwyg715, https://doi.org/10.1093/welia healtho-jcc/aixd386. Performed By: #### C MVQNT #### [facility] CLIA [id number] [address] [place] [address] [place] FINAL DIAGNOSIS Normal [facility] Comment on above: Order Comment: Speci men Type: BLOOD SPECIMEN Ordering Facility: [facility] Address: [address] [place] [address] Result Comment: A. S igmoid stricture, biopsy: -Moderate chronic active colitis B. Left colon, biopsy: -Moderate chronic active colitis Performed By: #### C MVQNT #### [facility] CLIA [id number] [address] [place] [address] STATES OF [facility] FINAL PERFORMING LAB Normal [facility] Comment on above: Order Comment: Speci men Type: BLOOD SPECIMEN Ordering Facility: [facility] Address: [address] [place] [address] Result Comment: Diag nostic interpretation performed at: [facility], [address] [place] [address] CLIA# [id number] Acoustical Installer: Didier Castaneda MD Performed By: #### C MVQNT #### [facility] CLIA [id number] [address] [place] [address] [place] GROSS DESCRIPTION Normal [facility] Comment on above: Order Comment: Speci men Type: BLOOD SPECIMEN Ordering Facility: [facility] Address: [address] [place] [address] Result Comment: A. C olon, Sigmoid, Biopsy [...] 2024 1:05 AM Gross examination performed at [facility], [address] [place] [address] Performed By: #### C MVQNT #### [facility] CLIA [id number] [address] [place] [address] [id number] CNPNon 12-06-2024 CNPN Telephone (HEMASA) ANGELA ELAM ([id number]) 1980 F Date Time Provider Department 12/06/24 DILMA MONTES During your visit today, we recorded the following information about you: Adri Aquino MA 12/06/2024 2:[address] labs if needed for appt on 12/10. Adri Aquino MA Allergies As of Date: 12/06/2024 (No Known Allergies) Date Reviewed: 12/06/2024 Reviewed by: Dilma Montes PA-C - Fully Assessed Reason for Visit: Lab Orders [8] Primary Visit Diagnosis:Iron deficiency anemia due to chronic blood loss [D50.0] Order(s):COMPREHENSIVE METABOLIC PANEL [SQCMP] Order #: [id number] FUTURE IRON AND TIBC [SQIRON] Order #: [id number] FUTURE COMPLETE BLOOD COUNT AND DIFFERENTIAL [SQCBCDIF] Order #: [id number] FUTURE FERRITIN [SQFERR] Order #: [id number] FUTURE Prescriptions as of 12/13/2024 - risankizumab-rzaa [...] ADRI AQUINO on 12/13/24 Normal [facility] CBC panel Auto (Bld)on 12-03 Erythrocyte distribution width (RBC) [Ratio] 19.1 % High 11.5 - 15.0 % [facility] Hematocrit (Bld) [Volume fraction] 39.2 % 36.0 - 46.0 % [facility] Hemoglobin (Bld) [Mass/Vol] 12.6 g/dL 11.5 - 15.5 g/dL [facility] Interpretation and review of laboratory results Abnormal [facility] MCH (RBC) [Entitic mass] 27.5 pg 26.0 - 34.0 pg [facility] MCHC (RBC) [Mass/Vol] 32.1 g/dL 30.5 - 36.0 g/dL [facility] MCV (RBC) [Entitic vol] 85.4 fL 80.0 - 100.0 fL [facility] Nucleated RBC (Bld) [#/Vol] NINF [facility] Platelet mean volume (Bld) [Entitic vol] 8.8 fL Low 9.0 - 12.7 fL [facility] Platelets (Bld) [#/Vol] 323 10*3/uL [facility] RBC (Bld) [#/Vol] 4.59 10*6/uL 3.90 - 5.2 0 m/uL [facility] WBC (Bld) [#/Vol] 8.81 10*3/uL [facility] Erythrocyte distribution width (RBC) [Ratio] 19.1 % High 11.5-15.0 [facility] Comment on above: Order Comment: Speci men Type: BLOOD SPECIMENOrdering Facility: [facility] Address: [address] [place] [address] Performed By: #### 5 8410-2 ####[facility] [id number] [place] [address] Hematocrit (Bld) [Volume fraction] 39.2 % Normal 36.0-46.0 [facility] Comment on above: Order Comment: Speci men Type: BLOOD SPECIMENOrdering Facility: [facility] Address: [address] [place] [address] Performed By: #### 5 8410-2 ####[facility] LAB[facility]IA [id number] [place] [address] Hemoglobin (Bld) [Mass/Vol] 12.6 g/dL Normal 11.5-15.5 [facility] Comment on above: Order Comment: Speci men Type: BLOOD SPECIMENOrdering Facility: [facility] Address: [address] [place] [address] Performed By: #### 5 8410-2 ####[facility] LAB[facility]IA [id number] [place] [address] MCH (RBC) [Entitic mass] 27.5 pg Normal 26.0-34.0 [facility] Comment on above: Order Comment: Speci men Type: BLOOD SPECIMENOrdering Facility: [facility] Address: [address] [place] [address] Performed By: #### 5 8410-2 ####[facility] LABCLIA [id number] [place] [address] MCHC (RBC) [Mass/Vol] 32.1 g/dL Normal 30.5-36.0 [facility] Comment on above: Order Comment: Speci men Type: BLOOD SPECIMENOrdering Facility: [facility] Address: [address] [place] [address] Performed By: #### 5 8410-2 ####[facility] LABCLIA [id number] [place] [address] MCV (RBC) [Entitic vol] 85.4 fL Normal 80.0-100.0 [facility] Comment on above: Order Comment: Speci men Type: BLOOD SPECIMENOrdering Facility: [facility] Address: [address] [place] [address] Performed By: #### 5 8410-2 ####[facility] LABCLIA [id number] [place] [address] Nucleated RBC (Bld) [#/Vol] 10*3/uL Normal <0.01 [facility] Comment on above: Order Comment: Speci men Type: BLOOD SPECIMENOrdering Facility: [facility] Address: [address] [place] [address] Performed By: #### 5 8410-2 ####[facility] LABIA [id number] [place] [address] Platelet mean volume (Bld) [Entitic vol] 8.8 fL Low 9.0-12.7 [facility] Comment on above: Order Comment: Speci men Type: BLOOD SPECIMENOrdering Facility: [facility] Address: [address] [place] [address] Performed By: #### 5 8410-2 ####[facility] LAB[facility] [id number] [place] [address] Platelets (Bld) [#/Vol] 323 10*3/uL Normal 150-400 [facility] Comment on above: Order Comment: Speci men Type: BLOOD SPECIMENOrdering Facility: [facility] Address: [address] [place] [address] Performed By: #### 5 8410-2 ####[facility] LABCLIA [id number] [place] [address] RBC (Bld) [#/Vol] 4.59 10*6/uL Normal 3.90-5.20 [facility] Comment on above: Order Comment: Speci men Type: BLOOD SPECIMENOrdering Facility: [facility] Address: [address] [place] [address] Performed By: #### 5 8410-2 ####[facility] LABIA [id number] [place] [address] WBC (Bld) [#/Vol] 8.81 10*3/uL Normal 3.70-11.00 [facility] Comment on above: Order Comment: Speci men Type: BLOOD SPECIMENOrdering Facility: [facility] Address: [address] [place] [address] Performed By: #### 5 8410-2 ####[facility] LABIA [id number] [place] [address] Hepatic function 2000 panelO rdered By: Coleen Carlisle on 12-03-2024 Albumin [Mass/Vol] 4.4 g/dL 3.9 - 4.9 g/dL [facility] ALP [Catalytic activity/Vol] 57 U/L 34 - 123 U/L [facility] ALT [Catalytic activity/Vol] 15 U/L 7 - 38 U/L [facility] AST [Catalytic activity/Vol] 13 U/L 13 - 35 U/L [facility] Bilirubin [Mass/Vol] 0.2 mg/dL 0.2 - 1 .3 mg/dL [facility] Bilirubin.conjugated [Mass/Vol] mg/dL NINF - 0.2 mg/dL [facility] Interpretation and review of laboratory results Normal [facility] Protein [Mass/Vol] 6.7 g/dL 6.3 - 8.0 g/dL [facility] Hepatic function 2000 panelo n 12-03-2024 Albumin [Mass/Vol] 4.4 g/dL Normal 3.9-4.9 [facility] Comment on above: Order Comment: Speci men Type: BLOOD SPECIMENOrdering Facility: [facility] Address: [address] [place] [address] Performed By: #### 2 4325-3 ####[facility] LABCLIA [id number] [place] [address] ALP [Catalytic activity/Vol] 57 U/L Normal 34-123 [facility] Comment on above: Order Comment: Speci men Type: BLOOD SPECIMENOrdering Facility: [facility] Address: [address] [place] [address] Performed By: #### 2 4325-3 ####[facility] LABCLIA [id number] [place] [address] ALT [Catalytic activity/Vol] 15 U/L Normal 7-38 [facility] Comment on above: Order Comment: Speci men Type: BLOOD SPECIMENOrdering Facility: [facility] Address: [address] [place] [address] Performed By: #### 2 4325-3 ####[facility] LABCLIA [id number] [place] [address] AST [Catalytic activity/Vol] 13 U/L Normal 13-35 [facility] Comment on above: Order Comment: Speci men Type: BLOOD SPECIMENOrdering Facility: [facility] Address: [address] [place] [address] Performed By: #### 2 4325-3 ####[facility] LABCLIA [id number] [place] [address] Bilirubin [Mass/Vol] 0.2 mg/dL Normal 0.2-1.3 [facility] Comment on above: Order Comment: Speci men Type: BLOOD SPECIMENOrdering Facility: [facility] Address: [address] [place] [address] Performed By: #### 2 4325-3 ####[facility] LABCLIA [id number] [place] [address] Bilirubin.conjugated [Mass/Vol] mg/dL Normal <0.2 [facility] Comment on above: Order Comment: Speci men Type: BLOOD SPECIMENOrdering Facility: [facility] Address: [address] [place] [address] Performed By: #### 2 4325-3 ####[facility] LABCLIA [id number] [place] [address] Protein [Mass/Vol] 6.7 g/dL Normal 6.3-8.0 [facility] Comment on above: Order Comment: Speci men Type: BLOOD SPECIMENOrdering Facility: [facility] Address: [address] [place] [address] Performed By: #### 2 4325-3 ####[facility] LABCLIA [id number] [place] [address] BLOOD TB SCREENon 11-04-2024 M. tuberculosis tuberculin stim IFN-g Ql (Bld) Negative Normal [facility] Comment on above: Order Comment: Speci men Type: BLOOD SPECIMEN [facility] Address: [address] [place] [address] Performed By: #### C MVQNT #### [facility] CLIA [id number] [address] [place], [place] [address] [address] [place] MITOGEN MINUS NIL >9.98 Normal >=0.50 [facility] Comment on above: Order Comment: Speci men Type: BLOOD SPECIMEN [facility] Address: [address] [place] [address] Performed By: #### C MVQNT #### [facility] CLIA [id number] [address] [place] [address] [place] TB GAMMA INTERPRETATION Infection with M. tuberculosis complex is unlikely. If latent tuberculosis infection is highly suspected, a negative result does not rule out the infection. Specimens from immunocompromised patients and those <5 years of age may show false negative results. In case of a contact investigation, please repeat 8-12 weeks after a known exposure. Normal [facility] Comment on above: Order Comment: Speci men Type: BLOOD SPECIMEN [facility] Address: [address] [place] [address] Performed By: #### C MVQNT #### [facility] CLIA [id number] [address] [place] [address] [place] TB NIL 0.02 IU/mL Normal <=8.00 [facility] Comment on above: Order Comment: Speci men Type: BLOOD SPECIMEN [facility] Address: [address] [place] [address] Performed By: #### C MVQNT #### [facility] CLIA [id number] [address] [place] [address] [place] TB1 AG MINUS NIL 0.00 IU/mL Normal <0.35 [facility] Comment on above: Order Comment: Speci men Type: BLOOD SPECIMEN [facility] Address: [address] [place] [address] Performed By: #### C MVQNT #### [facility] CLIA [id number] [address] [place] [address] [place] TB2 AG MINUS NIL 0.00 IU/mL Normal <0.35 [facility] Comment on above: Order Comment: Speci men Type: BLOOD SPECIMEN [facility] Facility[facility] Address: [address] [place] [address] Performed By: #### C MVQNT #### [facility] CLIA [id number] [address] [place] [address] [id number] [address] [place] CBC panel Auto (Bld)on 11-04 Erythrocyte distribution width (RBC) [Ratio] 25.4 % High 11.5-15.0 [facility] Comment on above: Order Comment: Speci men Type: BLOOD SPECIMENOrdering Facility: [facility] Address: [address] [place] [address] Performed By: #### 5 8410-2 ####[facility] LABCLIA [id number] [place] [address] Hematocrit (Bld) [Volume fraction] 38.6 % Normal 36.0-46.0 [facility] Comment on above: Order Comment: Speci men Type: BLOOD SPECIMENOrdering Facility: [facility] Address: [address] [place] [address] Performed By: #### 5 8410-2 ####[facility] LABCLIA [id number] [place] [address] Hemoglobin (Bld) [Mass/Vol] 11.8 g/dL Normal 11.5-15.5 [facility] Comment on above: Order Comment: Speci men Type: BLOOD SPECIMENOrdering Facility: [facility] Address: [address] [place] [address] Performed By: #### 5 8410-2 ####[facility] LABCLIA [id number] [place] [address] MCH (RBC) [Entitic mass] 25.4 pg Low 26.0-34.0 [facility] Comment on above: Order Comment: Speci men Type: BLOOD SPECIMENOrdering Facility: [facility] Address: [address] [place] [address] Performed By: #### 5 8410-2 ####[facility] LABCLIA [id number] [place] [address] MCHC (RBC) [Mass/Vol] 30.6 g/dL Normal 30.5-36.0 [facility] Comment on above: Order Comment: Speci men Type: BLOOD SPECIMENOrdering Facility: [facility] Address: [address] [place] [address] Performed By: #### 5 8410-2 ####[facility] LABCLIA [id number] [place] [address] MCV (RBC) [Entitic vol] 83.0 fL Normal 80.0-100.0 [facility] Comment on above: Order Comment: Speci men Type: BLOOD SPECIMENOrdering Facility: [facility] Address: [address] [place] [address] Performed By: #### 5 8410-2 ####[facility] LABCLIA [id number] [place] [address] Nucleated RBC (Bld) [#/Vol] 10*3/uL Normal <0.01 [facility] Comment on above: Order Comment: Speci men Type: BLOOD SPECIMENOrdering Facility: [facility] Address: [address] [place] [address] Performed By: #### 5 8410-2 ####[facility] LABCLIA [id number] [place] [address] Platelet mean volume (Bld) [Entitic vol] 8.6 fL Low 9.0-12.7 [facility] Comment on above: Order Comment: Speci men Type: BLOOD SPECIMENOrdering Facility: [facility] Address: [address] [place] [address] Performed By: #### 5 8410-2 ####[facility] LABCLIA [id number] [place] [address] Platelets (Bld) [#/Vol] 420 10*3/uL High 150-400 [facility] Comment on above: Order Comment: Speci men Type: BLOOD SPECIMENOrdering Facility: [facility] Address: [address] [place] [address] Performed By: #### 5 8410-2 ####[facility] LABCLIA [id number] [place] [address] RBC (Bld) [#/Vol] 4.65 10*6/uL Normal 3.90-5.20 [facility] Comment on above: Order Comment: Speci men Type: BLOOD SPECIMENOrdering Facility: [facility] Address: [address] [place] [address] Performed By: #### 5 8410-2 ####[facility] LABCLIA [id number] [place] [address] WBC (Bld) [#/Vol] 7.70 10*3/uL Normal 3.70-11.00 [facility] Comment on above: Order Comment: Speci men Type: BLOOD SPECIMENOrdering Facility: [facility] Address: [address] [place] [address] Performed By: #### 5 8410-2 ####[facility] LABCLIA [id number] [place] [address] Hepatic function 2000 panelo n 11-04-2024 Albumin [Mass/Vol] 4.2 g/dL Normal 3.9-4.9 [facility] Comment on above: Order Comment: Speci men Type: BLOOD SPECIMENOrdering Facility: [facility] Address: [address] [place] [address] Performed By: #### 2 4325-3 ####[facility] LABCLIA [id number] [place] [address] [place] ALP [Catalytic activity/Vol] 57 U/L Normal 34-123 [facility] Comment on above: Order Comment: Speci men Type: BLOOD SPECIMENOrdering Facility: [facility] Address: [address] [place] [address] Performed By: #### 2 4325-3 ####[facility] LABCLIA [id number] [place] [address] [place] ALT [Catalytic activity/Vol] 24 U/L Normal 7-38 [facility] Comment on above: Order Comment: Speci men Type: BLOOD SPECIMENOrdering Facility: [facility] Address: [address] [place] [id number] Performed By: #### 2 4325-3 ####[facility] LABCLIA [id number] [place] [id number] [place] AST [Catalytic activity/Vol] 21 U/L Normal 13-35 [facility] Comment on above: Order Comment: Speci men Type: BLOOD SPECIMENOrdering Facility: [facility] Address: [address] [place] [address] Performed By: #### 2 4325-3 ####[facility] LABCLIA [id number] [place] [address] [place] Bilirubin [Mass/Vol] mg/dL Low 0.2-1.3 [facility] Comment on above: Order Comment: Speci men Type: BLOOD SPECIMENOrdering Facility: [facility] Address: [address] [place] [address] Performed By: #### 2 4325-3 ####[facility] LABCLIA [id number] [place] [address] [place] Bilirubin.conjugated [Mass/Vol] mg/dL Normal <0.2 [facility] Comment on above: Order Comment: Speci men Type: BLOOD SPECIMENOrdering Facility: [facility] Address: [address] [place] [address] Performed By: #### 2 4325-3 ####[facility] LABCLIA [id number] [place] [id number] [place] Protein [Mass/Vol] 6.6 g/dL Normal 6.3-8.0 [facility] Comment on above: Order Comment: Speci men Type: BLOOD SPECIMENOrdering Facility: [facility] Address: [address] [place], [place] [id number] Performed By: #### 2 4325-3 ####[facility] LABCLIA [id number] [place] [address] [address] [place] Russel 11-03-2024 [facility] ANGELA ELAM ([id number]) 1980 F Date Time Provider Department 11/03/24 [place]O TORRES [facility] During your visit today, we recorded the following information about you: Orlando Torres MD 11/03/2024 2:34 PM Signed call to patient on scheduele for Monday [...] ORLANDO TORRES on 11/03/24 Normal [facility] CYTOMEGALOVIRUS (CMV) DNA, Q UANTITATIVE PCR, PLASMAOrdered By: Tiny Abel on 10-10-2024 CMV DNA ART+probe [#/Vol] IU/mL [facility] CMV DNA ART+probe [Log #/Vol] log IU/mL [facility] CMV DNA ART+probe Qn (P) Detected Abnormal Not Detected [facility] Interpretation and review of laboratory results Abnormal [facility] link CMV is an in vitro nucleic [...] detection of the assay is 34.5 IU/mL. [facility] CBC panel Auto (Bld)on 10-09 Erythrocyte distribution width (RBC) [Ratio] 26.1 % High 11.5-15.0 [facility] Comment on above: Order Comment: Speci men Type: BLOOD SPECIMENOrdering Facility: [facility] Address: [address] [place] [address] Performed By: #### 5 8410-2 ####[facility] LABIA [id number] [place] [id number] [place] [facility] Hematocrit (Bld) [Volume fraction] 34.7 % Low 36.0-46.0 [facility] Comment on above: Order Comment: Speci men Type: BLOOD SPECIMENOrdering Facility: [facility] Address: [address] [place] [address] Performed By: #### 5 8410-2 ####[facility]ENTERKarmen [facility] LABIA [id number] [place] [id number] [place] [facility] Hemoglobin (Bld) [Mass/Vol] 9.7 g/dL Low 11.5-15.5 [facility] Comment on above: Order Comment: Speci men Type: BLOOD SPECIMENOrdering Facility: [facility] Address: [address] [place] [address] Performed By: #### 5 8410-2 ####[facility] LABIA [id number] [place] [id number] [place] MCH (RBC) [Entitic mass] 21.8 pg Low 26.0-34.0 [facility] Comment on above: Order Comment: Speci men Type: BLOOD SPECIMENOrdering Facility: [facility] Address: [address] [place] [address] Performed By: #### 5 8410-2 ####[facility] LABIA [id number] [place] [address] [place] MCHC (RBC) [Mass/Vol] 28.0 g/dL Low 30.5-36.0 [facility] Comment on above: Order Comment: Speci men Type: BLOOD SPECIMENOrdering Facility: [facility] Address: [address] [place] [address] Performed By: #### 5 8410-2 ####[facility]GIE [facility] LABIA [id number] [place] [address] [place] MCV (RBC) [Entitic vol] 78.2 fL Low 80.0-100.0 [facility] Comment on above: Order Comment: Speci men Type: BLOOD SPECIMENOrdering Facility: [facility] Address: [address] [place] [address] Performed By: #### 5 8410-2 ####[facility] LABIA [id number] [place] [id number] [place] Nucleated RBC (Bld) [#/Vol] 10*3/uL Normal <0.01 [facility] Comment on above: Order Comment: Speci men Type: BLOOD SPECIMENOrdering Facility: [facility] Address: [address] [place] [address] Performed By: #### 5 8410-2 ####[facility]USKarmen [facility] LABIA [id number] [place] [id number] [place] Platelet mean volume (Bld) [Entitic vol] 8.5 fL Low 9.0-12.7 [facility] Comment on above: Order Comment: Speci men Type: BLOOD SPECIMENOrdering Facility: [facility] Address: [address] [place] [address] Performed By: #### 5 8410-2 ####[facility]ENT[facility]armen [facility] LABIA [id number] [place] [address] [place] Platelets (Bld) [#/Vol] 458 10*3/uL High 150-400 [facility] Comment on above: Order Comment: Speci men Type: BLOOD SPECIMENOrdering Facility: [facility] Address: [address] [place] [address] Performed By: #### 5 8410-2 ####[facility]USKarmen [facility] LABCLIA [id number] [place] [address] [place] RBC (Bld) [#/Vol] 4.44 10*6/uL Normal 3.90-5.20 [facility] Comment on above: Order Comment: Speci men Type: BLOOD SPECIMENOrdering Facility: [facility] Address: [address] [place] [address] Performed By: #### 5 8410-2 ####[facility]ENTERT [facility] LABCLIA [id number] [place] [id number] [place] WBC (Bld) [#/Vol] 12.06 10*3/uL High 3.70-11.00 [facility] Comment on above: Order Comment: Speci men Type: BLOOD SPECIMENOrdering Facility: [facility] Address: [address] [place] [address] Performed By: #### 5 8410-2 ####[facility] CAMPUST [facility] LABCLIA [id number] [place] [id number] [place] CRP [facility]20[facility] CRP [Mass/Vol] mg/L Normal <0.9 [facility] Comment on above: Order Comment: Speci men Type: BLOOD SPECIMEN [facility] Address: [address] [place] [address] Performed By: #### C MVQNT #### [facility] CLIA [id number] [address] [place] [address] [place] CYTOMEGALOVIRUS (CMV) DNA, Q UANTITATIVE PCR, PLASMAon 10-09-2024 CMV DNA ART+probe [#/Vol] <35 Normal [facility] Comment on above: Order Comment: Speci men Type: BLOOD SPECIMEN [facility] Address: [address] [place] [address] Performed By: #### C MVQNT #### [facility] CLIA [id number] [address] [place] [address] [place] CMV DNA ART+probe [Log #/Vol] <1.54 Normal [facility] Comment on above: Order Comment: Speci men Type: BLOOD SPECIMEN [facility] Address: [address] [place] [address] Performed By: #### C MVQNT #### [facility] CLIA [id number] [address] [place] [address] [place] CMV DNA ART+probe Qn (P) Detected Abnormal Not Detected [facility] Comment on above: Order Comment: Speci men Type: BLOOD SPECIMEN [facility] Address: [address] [place] [address] Performed By: #### C MVQNT #### [facility] CLIA [id number] [address] [place] [address] [place] Comprehensive metabolic 2000 panelon 10-09-2024 Albumin [Mass/Vol] 4.0 g/dL Normal 3.9-4.9 [facility] Comment on above: Order Comment: Speci men Type: BLOOD SPECIMEN [facility] Address: [address] [place] [address] Performed By: #### C MVQNT #### [facility] CLIA [id number] [address] [place] [address] [place] ALP [Catalytic activity/Vol] 52 U/L Normal 34-123 [facility] Comment on above: Order Comment: Speci men Type: BLOOD SPECIMEN [facility] Address: [address] [place] [address] Performed By: #### C MVQNT #### [facility] CLIA [id number] [address] [place] [address] [place] ALT [Catalytic activity/Vol] 18 U/L Normal 7-38 [facility] Comment on above: Order Comment: Speci men Type: BLOOD SPECIMEN [facility] Address: [address] [place] [address] Performed By: #### C MVQNT #### [facility] CLIA [id number] [address] [place] [address] [place] Anion gap [Moles/Vol] 14 mmol/L Normal 8-15 [facility] Comment on above: Order Comment: Speci men Type: BLOOD SPECIMEN [facility] Address: [address] [place] [address] Performed By: #### C MVQNT #### [facility] CLIA [id number] [address] [place] [address] [place] AST [Catalytic activity/Vol] 16 U/L Normal 13-35 [facility] Comment on above: Order Comment: Speci men Type: BLOOD SPECIMEN [facility] Address: [address] [place] [address] Performed By: #### C MVQNT #### [facility] CLIA [id number] [address] [place] [address] [place] Bilirubin [Mass/Vol] 0.2 mg/dL Normal 0.2-1.3 [facility] Comment on above: Order Comment: Speci men Type: BLOOD SPECIMEN [facility] Address: [address] [place] [address] Performed By: #### C MVQNT #### [facility] CLIA [id number] [address] [place] [address] [place] Calcium [Mass/Vol] 8.8 mg/dL Normal 8.5-10.2 [facility] Comment on above: Order Comment: Speci men Type: BLOOD SPECIMEN [facility] Address: [address] [place] [address] Performed By: #### C MVQNT #### [facility] CLIA [id number] [address] [place] [address] [place] Chloride [Moles/Vol] 104 mmol/L Normal 98-107 [facility] Comment on above: Order Comment: Speci men Type: BLOOD SPECIMEN [facility] Address: [address] [place] [address] Performed By: #### C MVQNT #### [facility] CLIA [id number] [address] [place] [address] [place] CO2 [Moles/Vol] 23 mmol/L Normal 22-30 [facility] Comment on above: Order Comment: Speci men Type: BLOOD SPECIMEN [facility] Address: [address] [place] [address] Performed By: #### C MVQNT #### [facility] CLIA [id number] [address] [place] [address] [place] Creatinine [Mass/Vol] 0.90 mg/dL Normal 0.58-0.96 [facility] Comment on above: Order Comment: Speci men Type: BLOOD SPECIMEN [facility] Address: [address] [place] [address] Performed By: #### C MVQNT #### [facility] CLIA [id number] [address] [place] [address] [place] [facility] Creatinine and Glomerular filtration rate.predicted panel (S/P/Bld) 81 mL/min/1.73m??? Normal >=60 [facility] Comment on above: Order Comment: Speci men Type: BLOOD SPECIMEN [facility] Address: [address] [place] [address] Result Comment: Michelle mated Glomerular Filtration Rate [...] accurately reflect actual GFR. Performed By: #### C MVQNT #### [facility] CLIA [id number] [address] [place] [address] [place] Glucose [Mass/Vol] 91 mg/dL Normal 74-99 [facility] Comment on above: Order Comment: Ayaka farrell Type: BLOOD SPECIMEN [facility] Address: [address] [place] [address] Result Comment: The [place] Diabetes Association (ADA) provides guidance for cutoff [...] Standards of Medical Care in Diabetes 2016, [place] [employer]. Diabetes Care. 2016.39(Suppl 1). Performed By: #### C MVQNT #### [facility] CLIA [id number] [address] [place] [address] [place] Potassium [Moles/Vol] 4.0 mmol/L Normal 3.7-5.1 [facility] Comment on above: Order Comment: Ayaka farrell Type: BLOOD SPECIMEN [facility] Address: [address] [place] [address] Performed By: #### C MVQNT #### [facility] CLIA [id number] [address] [place] [address] [place] Protein [Mass/Vol] 6.1 g/dL Low 6.3-8.0 [facility] Comment on above: Order Comment: Ayaka farrell Type: BLOOD SPECIMEN [facility] Address: [address] [place] [address] Performed By: #### C MVQNT #### [facility] CLIA [id number] [address] [place] [address] [place] Sodium [Moles/Vol] 141 mmol/L Normal 136-144 [facility] Comment on above: Order Comment: Speci men Type: BLOOD SPECIMEN [facility] Address: [address] [place] [address] Performed By: #### C MVQNT #### [facility] CLIA [id number] [address] [place] [address] [place] Urea nitrogen [Mass/Vol] 13 mg/dL Normal 7-21 [facility] Comment on above: Order Comment: Speci men Type: BLOOD SPECIMEN [facility] Address: [address] [place] [address] Performed By: #### C MVQNT #### [facility] CLIA [id number] [address] [place] [address] [place] Basic metabolic 2000 panelon 10-01-2024 Anion gap [Moles/Vol] 11 mmol/L Normal 8-15 [facility] Comment on above: Order Comment: Speci men Type: BLOOD SPECIMEN [facility] Address: [address] [place] [address] Performed By: #### 4 537-7 #### [facility] CLIA [id number] [address] [place] [address] [place] Calcium [Mass/Vol] 9.2 mg/dL Normal 8.5-10.2 [facility] Comment on above: Order Comment: Speci men Type: BLOOD SPECIMEN [facility] Address: [address] [place] [address] Performed By: #### 4 537-7 #### [facility] CLIA [id number] [address] [place] [address] [place] Chloride [Moles/Vol] 105 mmol/L Normal 98-107 [facility] Comment on above: Order Comment: Speci men Type: BLOOD SPECIMEN [facility] Address: [address] [place] [address] Performed By: #### 4 537-7 #### [facility] CLIA [id number] [address] [place] [address] [place] CO2 [Moles/Vol] 24 mmol/L Normal 22-30 [facility] Comment on above: Order Comment: Speci men Type: BLOOD SPECIMEN [facility] Address: [address] [place] [address] Performed By: #### 4 537-7 #### [facility] CLIA [id number] [address] [place] [address] [place] Creatinine [Mass/Vol] 0.78 mg/dL Normal 0.58-0.96 [facility] Comment on above: Order Comment: Speci men Type: BLOOD SPECIMEN [facility] Address: [address] [place] [address] Performed By: #### 4 537-7 #### [facility] CLIA [id number] [address] [place] [address] [place] Creatinine and Glomerular filtration rate.predicted panel (S/P/Bld) 96 mL/min/1.73m??? Normal >=60 [facility] Comment on above: Order Comment: Speci men Type: BLOOD SPECIMEN [facility] Address: [address] [place] [address] Result Comment: Michelle mated Glomerular Filtration Rate [...] accurately reflect actual GFR. Performed By: #### 4 537-7 #### [facility] CLIA [id number] [address] [place] [address] [place] Glucose [Mass/Vol] 125 mg/dL High 74-99 [facility] Comment on above: Order Comment: Speci men Type: BLOOD SPECIMEN [facility] Address: [address] [place] [address] Result Comment: The [place] Diabetes [employer] (ADA) provides guidance for cutoff [...] Standards of Medical Care in Diabetes 2016, [place] [employer]. Diabetes Care. 2016.39(Suppl 1). Performed By: #### 4 537-7 #### [facility] CLIA [id number] [address] [place] [address] [place] Potassium [Moles/Vol] 4.3 mmol/L Normal 3.7-5.1 [facility] Comment on above: Order Comment: Marjoriei men Type: BLOOD SPECIMEN [facility] Address: [address] [place] [address] Performed By: #### 4 537-7 #### [facility] CLIA [id number] [address] [place] [address] [place] Sodium [Moles/Vol] 140 mmol/L Normal 136-144 [facility] Comment on above: Order Comment: Speci men Type: BLOOD SPECIMEN [facility] Address: [address] [place] [address] Performed By: #### 4 537-7 #### [facility] CLIA [id number] [address] [place] [address] [place] Urea nitrogen [Mass/Vol] 15 mg/dL Normal 7-21 [facility] Comment on above: Order Comment: Speci men Type: BLOOD SPECIMEN [facility] Address: [address] [place] [address] Performed By: #### 4 537-7 #### [facility] CLIA [id number] [address] [place] [address] [place] CBC panel Auto (Bld)on 10-01 Erythrocyte distribution width (RBC) [Ratio] 22.7 % High 11.5-15.0 [facility] Comment on above: Order Comment: Speci men Type: BLOOD SPECIMEN [facility] Address: [address] [place] [address] Performed By: #### 4 537-7 #### [facility] CLIA [id number] [address] [place] [address] [place] Hematocrit (Bld) [Volume fraction] 31.3 % Low 36.0-46.0 [facility] Comment on above: Order Comment: Speci men Type: BLOOD SPECIMEN [facility] Address: [address] [place] [address] Performed By: #### 4 537-7 #### [facility] CLIA [id number] [address] [place] [address] [place] Hemoglobin (Bld) [Mass/Vol] 8.5 g/dL Low 11.5-15.5 [facility] Comment on above: Order Comment: Speci men Type: BLOOD SPECIMEN Ordering Facility: [facility] Address: [address] [place] [address] Performed By: #### 4 537-7 #### [facility] CLIA [id number] [address] [place] [address] [place] MCH (RBC) [Entitic mass] 20.4 pg Low 26.0-34.0 [facility] Comment on above: Order Comment: Speci men Type: BLOOD SPECIMEN Ordering Facility: [facility] Address: [address] [place] [address] Performed By: #### 4 537-7 #### [facility] CLIA [id number] [address] [place] [address] [place] MCHC (RBC) [Mass/Vol] 27.2 g/dL Low 30.5-36.0 [facility] Comment on above: Order Comment: Speci men Type: BLOOD SPECIMEN Ordering Facility: [facility] Address: [address] [place] [address] Performed By: #### 4 537-7 #### [facility] CLIA [id number] [address] [place] [address] [place] MCV (RBC) [Entitic vol] 75.1 fL Low 80.0-100.0 [facility] Comment on above: Order Comment: Speci men Type: BLOOD SPECIMEN Ordering Facility: [facility] Address: [address] [place] [address] Performed By: #### 4 537-7 #### [facility] CLIA [id number] [address] [place] [address] [place] Nucleated RBC (Bld) [#/Vol] 10*3/uL Normal <0.01 [facility] Comment on above: Order Comment: Speci men Type: BLOOD SPECIMEN Ordering Facility: [facility] Address: [address] [place] [address] Performed By: #### 4 537-7 #### [facility] CLIA [id number] [address] [place] [address] [place] Platelet mean volume (Bld) [Entitic vol] 9.3 fL Normal 9.0-12.7 [facility] Comment on above: Order Comment: Speci men Type: BLOOD SPECIMEN Ordering Facility: [facility] Address: [address] [place] [address] Performed By: #### 4 537-7 #### [facility] CLIA [id number] [address] [place] [address] [place] Platelets (Bld) [#/Vol] 471 10*3/uL High 150-400 [facility] Comment on above: Order Comment: Speci men Type: BLOOD SPECIMEN Ordering Facility: [facility] Address: [address] [place] [address] Performed By: #### 4 537-7 #### [facility] CLIA [id number] [address] [place] [address] [place] RBC (Bld) [#/Vol] 4.17 10*6/uL Normal 3.90-5.20 [facility] Comment on above: Order Comment: Ayaka men Type: BLOOD SPECIMEN Ordering Facility: [facility] Address: [address] [place] [address] Performed By: #### 4 537-7 #### [facility] CLIA [id number] [address] [place] [address] [place] WBC (Bld) [#/Vol] 11.70 10*3/uL High 3.70-11.00 [facility] Comment on above: Order Comment: Ayaka farrell Type: BLOOD SPECIMEN Ordering Facility: [facility] Address: [address] [place] [address] Performed By: #### 4 537-7 #### [facility] CLIA [id number] [address] [place] [address] OF [place] CNDSon 10-01-2024 CNDS HNO ID: [id number] Author: YURIY PACK MD Service: Hospital Medicine [...] 10/01/2024 2:00 PM CHAIR 19 [facility] 10/08/2024 3:30 PM CHAIR 19 [facility]W [facility] 10/15/2024 3:30 PM CHAIR 19 MATTHEW HEMTSA [facility] 10/22/2024 3:30 PM CHAIR 19 MATTHEW HEMTSA [facility] 10/29/2024 2:00 PM CHAIR 16 MATTHEW HEMTSA [facility] 11/01/2024 9:30 AM Pharmacist, Specialtygroup 2 SPCPHARMSVC None 11/26/2024 2:00 PM CHAIR 16 [facility]W [facility] 12/10/2024 2:45 PM LAB HEMRAD MATTHEW LABSAN [facility] 12/10/2024 3:00 (more content not included)... [facility] 10-01-[address] [facility] Telephone (FVPRAD) ANGELA ELAM ([id number]) 1980 F Date Time Provider Department 10/01/24 DERIC RALPH During your visit today, we recorded the following information about you: Deric Ralph, CHEPE.MANAGER REHAB 10/01/2024 1:14 PM Signed S/p flex sig [...] would like patient to be seen? AUSTIN Whaley Jacob, MD 10/01/2024 5:21 PM Signed Melanie, can you [...] Signed Attempted to contact patient. Went to voicemail but mailbox is full and cannot accept [...] A 10/05/2024 3:08 PM Signed 11/15/2024 at [facility] at 1230pm Giselle March 10/05/2024 3:10 [...] day of the week. Patient notified via [employer]. CHANG Mccann Chelsea A, RN 11/12/2024 11:[address] Martinez, Patient had VV with ID today. assessment [...] OK to proceed with sigmoidoscopy at either [facility] or [place] [facility] [place] [place] if there is an opening. Order placed. She should adhere to a clear l (more content not included)... Normal [facility] CNPN Telephone (JASONA) ANGELA ELAM ([id number]) 1980 F Date Time Provider Department 10/01/24 [...] Encounter Status:Closed by PASCUAL HEALY on 10/11/24 Normal [facility] CONSULT PROGon 10-01-2024 CONSULT PROG HNO ID: [id number] Author: DERIC RALPH APRN.MANGO Service: Gastroenterology Author Type: Nurse Practitioner Type: [...] follow up as outpatient with Dr. Martinez [facility] NURSING PROGon 10-01-2024 NURSING PROG HNO ID: [id number] Author: ROSE MCKNIGHT, RN Service: Nursing Author Type: Registered Nurse Type: Nursing Progress Note Filed: 10/01/2024 18:30 Note Text: Other: Patient discharged home to self at this time. IV out. Discharge instructions given. Patient took all belongings. 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) Scheduled Providers: Mak Martinez MD; Bill Blake MD; Jered Montgomery APRN.DEMAND PLANNING ANALYST; Niki Bunch RN Responsible Provider: Bill Blake [...] September 30, 2024 TIME: 11:54 AM CSN: [id number] [facility] ANES PRE-OPon 09-30-2024 ANES PRE-OP HNO ID: [id number] Author: BILL BLAKE MD Service: Anesthesiology Author Type: Anesthesiologist Type: Anesthesia Preprocedure Evaluation Filed: 09/30/2024 08:18 Note Text: ANESTHESIOLOGY DAY OF SURGERY NOTE : 1980 Procedure Information Date/Time: 09/30/24 08 Scheduled providers: Mak Martinez MD; Bill Blake MD; Jered Montgomery APRN.DEMAND PLANNING ANALYST; Niki Bunch RN Procedure: SIGMOIDOSCOPY Location: Procedures [...] and consent discussed: yes. Patient / Responsible Republican agrees to proceed: yes Patient / Surrogate agrees to blood products: blood products not planned Significant changes in the patient condition since the History and Physical, not otherwise documented in primary service progress note: no. Potential Anesthesia issues that may suggest increased risk of complications or contraindication to planned procedure: none. Vitals Value Taken Time BP 129/87 09/30/2415 Pulse Resp 18 09/30/24814 Temp 36.7 ?C (98.1 ?F) 09/30/24 0815 SpO2 99 % 09/30/24814 Facility-Administered Medications as [...] September 30, 2024 TIME: 8:18 AM CSN: [id number] Normal [facility] Basic metabolic 2000 panelon 09-30-2024 Anion gap [Moles/Vol] 8 mmol/L Normal 8-15 [facility] Comment on above: Order Comment: Speci men Type: BLOOD SPECIMENOrdering Facility: [facility] Address: [address] [place], [place] [address] [address] Performed By: #### 2 4321-2 ####[facility]ORATORYCLIA [id number] [facility] [place] [address] [place] Calcium [Mass/Vol] 9.5 mg/dL Normal 8.5-10.2 [facility] Comment on above: Order Comment: Speci men Type: BLOOD SPECIMENOrdering Facility: [facility] Address: [address] [place] [address] Performed By: #### 2 4321-2 ####[facility]ORATORYCLIA [id number] [place] [address] [place] Chloride [Moles/Vol] 104 mmol/L Normal 98-107 [facility] Comment on above: Order Comment: Speci men Type: BLOOD SPECIMENOrdering Facility: [facility] Address: [address] [place] [address] Performed By: #### 2 4321-2 ####[facility]ORATORYCLIA [id number] [place] [address] [place] CO2 [Moles/Vol] 25 mmol/L Normal 22-30 [facility] Comment on above: Order Comment: Speci men Type: BLOOD SPECIMENOrdering Facility: [facility] Address: [address] [place] [address] Performed By: #### 2 4321-2 ####[facility]ORATORYIA [id number] [place] [address] [place] Creatinine [Mass/Vol] 0.78 mg/dL Normal 0.58-0.96 [facility] Comment on above: Order Comment: Speci men Type: BLOOD SPECIMENOrdering Facility: [facility] Address: [address] [place] [address] Performed By: #### 2 4321-2 ####[facility]ORATORYIA [id number] [place] [address] [place] Creatinine and Glomerular filtration rate.predicted panel (S/P/Bld) 96 mL/min/1.73m??? Normal >=60 [facility] Comment on above: Order Comment: Speci men Type: BLOOD SPECIMENOrdering Facility: [facility] Address: [address] [place] [address] Result Comment: Michelle mated Glomerular Filtration Rate [...] actual GFR. Performed By: #### 2 4321-2 ####[facility]ORATORYIA [id number] [place] [address] [place] Glucose [Mass/Vol] 125 mg/dL High 74-99 [facility] Comment on above: Order Comment: Speci men Type: BLOOD SPECIMENOrdering Facility: [facility] Address: [address] [id number] Result Comment: The [place] Diabetes Association (ADA) provides guidance for cutoff [...] Standards of Medical Care in Diabetes 2016, [place] [employer]. Diabetes Care. 2016.39(Suppl 1). Performed By: #### 2 4321-2 ####[facility]ORATORYIA [id number] [place] [address] [place] Potassium [Moles/Vol] 4.3 mmol/L Normal 3.7-5.1 [facility] Comment on above: Order Comment: Marjoriei men Type: BLOOD SPECIMENOrdering Facility: [facility] Address: [address] [place] [address] Performed By: #### 2 4321-2 ####[facility] [id number] [place] [address] [place] Sodium [Moles/Vol] 137 mmol/L Normal 136-144 [facility] Comment on above: Order Comment: Speci men Type: BLOOD SPECIMENOrdering Facility: [facility] Address: [address] [place] [address] Performed By: #### 2 4321-2 ####[facility]ITALIA [id number] [place] [address] [place] Urea nitrogen [Mass/Vol] 12 mg/dL Normal 7-21 [facility] Comment on above: Order Comment: Speci men Type: BLOOD SPECIMENOrdering Facility: [facility] Address: [address] [place] [address] Performed By: #### 2 4321-2 ####[facility]ITALIA [id number] [place] [address] [place] CBC panel Auto (Bld)on 09-30 Erythrocyte distribution width (RBC) [Ratio] 22.5 % High 11.5-15.0 [facility] Comment on above: Order Comment: Speci men Type: BLOOD SPECIMENOrdering Facility: [facility] Address: [address] [place] [address] Performed By: #### 5 8410-2 ####[facility]ITALIA [id number] [place] [address] [place] Hematocrit (Bld) [Volume fraction] 30.6 % Low 36.0-46.0 [facility] Comment on above: Order Comment: Speci men Type: BLOOD SPECIMENOrdering Facility: [facility] Address: [address] [place] [address] Performed By: #### 5 8410-2 ####[facility]ITALIA [id number] [place] [address] [place] Hemoglobin (Bld) [Mass/Vol] 8.0 g/dL Low 11.5-15.5 [facility] Comment on above: Order Comment: Speci men Type: BLOOD SPECIMENOrdering Facility: [facility] Address: [address] [place] [address] Performed By: #### 5 8410-2 ####[facility]ORATORYIA [id number] [place] [address] [place] MCH (RBC) [Entitic mass] 19.5 pg Low 26.0-34.0 [facility] Comment on above: Order Comment: Speci men Type: BLOOD SPECIMENOrdering Facility: [facility] Address: [address] [place] [address] Performed By: #### 5 8410-2 ####[facility]ORATORYIA [id number] [place] [address] [place] MCHC (RBC) [Mass/Vol] 26.1 g/dL Low 30.5-36.0 [facility] Comment on above: Order Comment: Speci men Type: BLOOD SPECIMENOrdering Facility: [facility] Address: [address] [place] [address] Performed By: #### 5 8410-2 ####[facility] [id number] [place] [address] [place] MCV (RBC) [Entitic vol] 74.6 fL Low 80.0-100.0 [facility] Comment on above: Order Comment: Speci men Type: BLOOD SPECIMENOrdering Facility: [facility] Address: [address] [place] [address] Performed By: #### 5 8410-2 ####[facility] [id number] [place] [address] [place] Nucleated RBC (Bld) [#/Vol] 10*3/uL Normal <0.01 [facility] Comment on above: Order Comment: Speci men Type: BLOOD SPECIMENOrdering Facility: [facility] Address: [address] [place] [address] Performed By: #### 5 8410-2 ####[facility]ITALIA [id number] [place] [address] [place] Platelet mean volume (Bld) [Entitic vol] 8.4 fL Low 9.0-12.7 [facility] l Comment on above: Order Comment: Speci men Type: BLOOD SPECIMENOrdering Facility: [facility] Address: [address] [place] [address] Performed By: #### 5 8410-2 ####[facility]ORATORYCLIA [id number] [facility] [place] [address] [place] Platelets (Bld) [#/Vol] 471 10*3/uL High 150-400 [facility] Comment on above: Order Comment: Speci men Type: BLOOD SPECIMENOrdering Facility: [facility] Address: [address] [place] [address] Performed By: #### 5 8410-2 ####[facility] LABORATORYIA [id number] [place] [address] [place] [facility] [place] RBC (Bld) [#/Vol] 4.10 10*6/uL Normal 3.90-5.20 [facility] Comment on above: Order Comment: Speci men Type: BLOOD SPECIMENOrdering Facility: [facility] Address: [address] [place] [address] Performed By: #### 5 8410-2 ####[facility]ITALIA [id number] [place] [address] [place] [facility] OF [place] WBC (Bld) [#/Vol] 12.49 10*3/uL High 3.70-11.00 [facility] Comment on above: Order Comment: Speci men Type: BLOOD SPECIMENOrdering Facility: [facility] Address: [address] [place] [address] Performed By: #### 5 8410-2 ####[facility]ITALIA [id number] [place] [address] [facility] OF [place] CONSULT PROGon 09-30-2024 CONSULT PROG HNO ID: [id number] Author: VAHE MARADIAGA APRN.MANAGER REHAB Service: Gastroenterology Author Type: Nurse Practitioner Type: [...] discussed with the patient per Dr. Martinez. [facility] CT ABD/PEL W IVCONon 024 CT ABD/PEL W IVCON * * *Final Report* * * DATE OF EXAM: Sep 30 2024 4:09PM [facility] 0530 - CT ABD/PEL W IVCON / [...] right side, UTI is in the differential. Potato Inspector: REINALDO Transcribe Date/Time: Oct 01 2024 7:30A Dictated by : BRANDAN FLOR MD This examination was interpreted and the report reviewed and electronically signed by: BRANDAN FLOR MD on Oct 01 2024 7:45AM EST [id number] Normal [facility] Flexible Sigmoidoscopyon Flexible sigmoidoscopy [facility] Gastrointestinal Endoscopy Patient Name: Angela Elam Procedure Date: 09/30/2024 8:25 AM Date of : 1980 Admit Type: Inpatient Age: 44 Room: [place] [address] Gender: Female Note Status: Finalized Attending MD: Mak Martinez MD, [id number] Procedure: Flexible Sigmoidoscopy Indications: Disease activity assessment [...] Blood Loss: Estimated blood loss was minimal. [facility] SURGICAL PATHOLOGYon -31-2 024 ADDENDUM 1: [facility] Comment on above: Order Comment: Speci men Type: TISSUE SPECIMENOrdering Facility: [facility] Address: [address] [place] [address] Result Comment: The sigmoid biopsy (part A) is POSITIVE for a few CMV inclusions on immunostain. CMV immunostain on the rectum biopsy (parts C) is POSITIVE in a few viral inclusions as well. Addendum electronically signed by Glen Corea MD on 10/05/2024 at 3:32 PM Performed By: #### S ####[facility]ORATORYCLIA [id number] [address] LABCLIA [id number] [address] OF [place] CASE REPORT [facility] Comment on above: Order Comment: Speci men Type: TISSUE SPECIMENOrdering Facility: [facility] Address: [address] [place] [address] Result Comment: Surg [facility] Pathology Report Case: [id number] Authorizing Provider: Mak Martinez MD Collected: 09/30/2024 08:39 AM Ordering Location: Procedures Received: 09/30/2024 08:58 AM Pathologist: Glen Corea MD Specimens: A) - Colon, Sigmoid, Biopsy, @ 25 cm, stricture, r/o dysplasia B) - Colon, Sigmoid, Biopsy, r/o colitis, dysplasia & CMV C) - Rectum, Biopsy, r/o colitis, dysplasia & CMV Performed By: #### S ####[facility]ORATORYCLIA [id number] [address] LABCLIA [id number] [address] DIAGNOSIS COMMENT CMV immunostains are pending on the sigmoid and rectum biopsies (parts A and C). [facility] Comment on above: Order Comment: Speci men Type: TISSUE SPECIMENOrdering Facility: [facility] Address: [address] [place] [address] Performed By: #### S ####[facility] LABORATORYCLIA [id number] [address] LABCLIA [id number] [address] FINAL DIAGNOSIS Normal [facility] Comment on above: Order Comment: Speci men Type: TISSUE SPECIMENOrdering Facility: [facility] Address: [address] [place] [address] Result Comment: A. S igmoid colon, biopsy: - Predominantly ulcer and granulation tissue. - No dysplasia seen in the scant colonic epithelium. B. Sigmoid, biopsy: - Chronic active colitis. - Negative for dysplasia. C. Rectum, biopsy: - Chronic active proctitis. - Negative for dysplasia. - See comment. Performed By: #### S ####[facility] LABORATORYCLIA [id number] [address] LABCLIA [id number] [address] FINAL PERFORMING LAB Normal [facility] Comment on above: Order Comment: Speci men Type: TISSUE SPECIMENOrdering Facility: [facility] Address: [address] [place] [address] Result Comment: Diag nostic interpretation performed at [facility], [address] [place] [address] CLIA# [id number] Acoustical Installer: Coleen Cramer M.D. Performed By: #### S ####[facility] LABORATORYIA [id number] [address] LABCLIA [id number] [address] STATES [facility] GROSS DESCRIPTION Normal [facility] Comment on above: Order Comment: Speci men Type: TISSUE SPECIMENOrdering Facility: [facility] Address: [address] [place] [address] Result Comment: A. C olon, Sigmoid, Biopsy [...] 0.2 cm. Totally submitted in one cassette. JC September 30, 2024 2:09 PM Gross examination performed at [facility], [address] [place] [address] Performed By: #### S ####[facility] LABORATORYCLIA [id number] [place] [address] [place] [facility] LABCLIA [id number] [place] [address] [place] Basic metabolic 2000 panelon 09-29-2024 Anion gap [Moles/Vol] 11 mmol/L Normal 8-15 [facility] Comment on above: Order Comment: Speci men Type: BLOOD SPECIMEN [facility] Address: [address] [place] [address] Performed By: #### 4 537-7 #### [facility] CLIA [id number] [address] [place] [address] [place] Calcium [Mass/Vol] 9.5 mg/dL Normal 8.5-10.2 [facility] Comment on above: Order Comment: Speci men Type: BLOOD SPECIMEN [facility] Address: [address] [place] [address] Performed By: #### 4 537-7 #### [facility] CLIA [id number] [address] [place] [address] [place] Chloride [Moles/Vol] 107 mmol/L Normal 98-107 [facility] Comment on above: Order Comment: Speci men Type: BLOOD SPECIMEN [facility] Address: [address] [place] [address] Performed By: #### 4 537-7 #### [facility] CLIA [id number] [address] [place] [address] [place] CO2 [Moles/Vol] 22 mmol/L Normal 22-30 [facility] Comment on above: Order Comment: Speci men Type: BLOOD SPECIMEN [facility] Address: [address] [place] [address] Performed By: #### 4 537-7 #### [facility] CLIA [id number] [address] [place] [address] [place] Creatinine [Mass/Vol] 0.87 mg/dL Normal 0.58-0.96 [facility] Comment on above: Order Comment: Speci men Type: BLOOD SPECIMEN [facility] Address: [address] [place] [address] Performed By: #### 4 537-7 #### [facility] CLIA [id number] [address] [place] [address] [place] Creatinine and Glomerular filtration rate.predicted panel (S/P/Bld) 84 mL/min/1.73m??? Normal >=60 [facility] Comment on above: Order Comment: Speci men Type: BLOOD SPECIMEN [facility] Address: [address] [place] [address] Result Comment: Michelle mated Glomerular Filtration Rate [...] accurately reflect actual GFR. Performed By: #### 4 537-7 #### [facility] CLIA [id number] [address] [place] [address] [place] Glucose [Mass/Vol] 116 mg/dL High 74-99 [facility] Comment on above: Order Comment: Speci men Type: BLOOD SPECIMEN [facility] Address: [address] [place] [address] Result Comment: The [place] Diabetes [employer] (ADA) provides guidance for cutoff [...] Standards of Medical Care in Diabetes 2016, [place] [employer]. Diabetes Care. 2016.39(Suppl 1). Performed By: #### 4 537-7 #### [facility] CLIA [id number] [address] [place] [address] [place] Potassium [Moles/Vol] 4.2 mmol/L Normal 3.7-5.1 [facility] Comment on above: Order Comment: Speci men Type: BLOOD SPECIMEN [facility] Address: [address] [place] [address] Performed By: #### 4 537-7 #### [facility] CLIA [id number] [address] [place] [address] [place] Sodium [Moles/Vol] 140 mmol/L Normal 136-144 [facility] Comment on above: Order Comment: Speci men Type: BLOOD SPECIMEN Ordering Facility: [facility] Address: [address] [place] [address] Performed By: #### 4 537-7 #### [facility] CLIA [id number] [address] [place] [address] [place] Urea nitrogen [Mass/Vol] 17 mg/dL Normal 7-21 [facility] Comment on above: Order Comment: Speci men Type: BLOOD SPECIMEN Ordering Facility: [facility] Address: [address] [place] [address] Performed By: #### 4 537-7 #### [facility] CLIA [id number] [address] [place] [address] [place] C diff Tox gens Stl Ql ART+p robeon 09-29-2024 C. difficile toxin genes ART+probe Ql (Stl) Negative Normal Negative for C. difficile toxin by PCR [facility] Comment on above: Order Comment: Speci men Type: BLOOD SPECIMEN Ordering Facility: [facility] Address: [address] [place] [address] Performed By: #### 4 537-7 #### [facility] CLIA [id number] [address] [place] [address] [place] CBC W Auto Differential pane l (Bld)on 09-29-2024 Basophils (Bld) [#/Vol] 10*3/uL Normal <0.11 [facility] Comment on above: Order Comment: Speci men Type: BLOOD SPECIMEN Ordering Facility: [facility] Address: [address] [place] [address] Performed By: #### 4 537-7 #### [facility] CLIA [id number] [address] [place] [address] [place] Basophils/100 WBC (Bld) 0.2 % Normal [facility] Comment on above: Order Comment: Speci men Type: BLOOD SPECIMEN Ordering Facility: [facility] Address: [address] [place] [address] Performed By: #### 4 537-7 #### [facility] CLIA [id number] [address] [place] [address] [place] Differential cell count method Nom (Bld) Auto Normal [facility] Comment on above: Order Comment: Speci men Type: BLOOD SPECIMEN Ordering Facility: [facility] Address: [address] [place] [address] Performed By: #### 4 537-7 #### [facility] CLIA [id number] [address] [place] [address] [place] Eosinophils (Bld) [#/Vol] 0.06 10*3/uL Normal <0.46 [facility] Comment on above: Order Comment: Speci men Type: BLOOD SPECIMEN Ordering Facility: [facility] Address: [address] [place] [address] Performed By: #### 4 537-7 #### [facility] CLIA [id number] [address] [place] [address] [place] Eosinophils/100 WBC (Bld) 0.5 % Normal [facility] Comment on above: Order Comment: Speci men Type: BLOOD SPECIMEN Ordering Facility: [facility] Address: [address] [place] [address] Performed By: #### 4 537-7 #### [facility] CLIA [id number] [address] [place] [address] [place] Erythrocyte distribution width (RBC) [Ratio] 22.0 % High 11.5-15.0 [facility] Comment on above: Order Comment: Speci men Type: BLOOD SPECIMEN Ordering Facility: [facility] Address: [address] [place] [address] Performed By: #### 4 537-7 #### [facility] CLIA [id number] [address] [place] [address] [place] Hematocrit (Bld) [Volume fraction] 30.1 % Low 36.0-46.0 [facility] Comment on above: Order Comment: Speci men Type: BLOOD SPECIMEN Ordering Facility: [facility] Address: [address] [place] [address] Performed By: #### 4 537-7 #### [facility] CLIA [id number] [address] [place] [address] [place] Hemoglobin (Bld) [Mass/Vol] 8.3 g/dL Low 11.5-15.5 [facility] Comment on above: Order Comment: Speci men Type: BLOOD SPECIMEN Ordering Facility: [facility] Address: [address] [place] [address] Performed By: #### 4 537-7 #### [facility] CLIA [id number] [address] [place] [address] [place] Immature granulocytes (Bld) [#/Vol] 0.08 10*3/uL Normal <0.10 [facility] Comment on above: Order Comment: Speci men Type: BLOOD SPECIMEN Ordering Facility: [facility] Address: [address] [place] [address] Performed By: #### 4 537-7 #### [facility] CLIA [id number] [address] [place] [address] [place] Immature granulocytes/100 WBC (Bld) 0.7 % Normal [facility] Comment on above: Order Comment: Speci men Type: BLOOD SPECIMEN Ordering Facility: [facility] Address: [address] [place] [address] Performed By: #### 4 537-7 #### [facility] CLIA [id number] [address] [place] [address] [place] Lymphocytes (Bld) [#/Vol] 3.06 10*3/uL Normal 1.00-4.00 [facility] Comment on above: Order Comment: Speci men Type: BLOOD SPECIMEN Ordering Facility: [facility] Address: [address] [place] [address] Performed By: #### 4 537-7 #### [facility] CLIA [id number] [address] [place] [address] [place] Lymphocytes/100 WBC (Bld) 25.3 % Normal [facility] Comment on above: Order Comment: Speci men Type: BLOOD SPECIMEN Ordering Facility: [facility] Address: [address] [place] [address] Performed By: #### 4 537-7 #### [facility] CLIA [id number] [address] [place] [address] [place] MCH (RBC) [Entitic mass] 20.2 pg Low 26.0-34.0 [facility] Comment on above: Order Comment: Speci men Type: BLOOD SPECIMEN Ordering Facility: [facility] Address: [address] [place] [address] Performed By: #### 4 537-7 #### [facility] CLIA [id number] [address] [place] [address] [place] MCHC (RBC) [Mass/Vol] 27.6 g/dL Low 30.5-36.0 [facility] Comment on above: Order Comment: Speci men Type: BLOOD SPECIMEN Ordering Facility: [facility] Address: [address] [place] [address] Performed By: #### 4 537-7 #### [facility] CLIA [id number] [address] [place] [address] [place] MCV (RBC) [Entitic vol] 73.2 fL Low 80.0-100.0 [facility] Comment on above: Order Comment: Speci men Type: BLOOD SPECIMEN Ordering Facility: [facility] Address: [address] [place] [address] Performed By: #### 4 537-7 #### [facility] CLIA [id number] [address] [place] [address] [place] Monocytes (Bld) [#/Vol] 0.78 10*3/uL Normal <0.87 [facility] Comment on above: Order Comment: Speci men Type: BLOOD SPECIMEN Ordering Facility: [facility] Address: [address] [place] [address] Performed By: #### 4 537-7 #### [facility] CLIA [id number] [address] [place] [address] [place] Monocytes/100 WBC (Bld) 6.4 % Normal [facility] Comment on above: Order Comment: Speci men Type: BLOOD SPECIMEN Ordering Facility: [facility] Address: [address] [place] [address] Performed By: #### 4 537-7 #### [facility] CLIA [id number] [address] [place] [address] [place] Neutrophils (Bld) [#/Vol] 8.11 10*3/uL High 1.45-7.50 [facility] Comment on above: Order Comment: Speci men Type: BLOOD SPECIMEN Ordering Facility: [facility] Address: [address] [place] [address] Performed By: #### 4 537-7 #### [facility] CLIA [id number] [address] [place] [address] [place] Neutrophils/100 WBC (Bld) 66.9 % Normal [facility] Comment on above: Order Comment: Speci men Type: BLOOD SPECIMEN Ordering Facility: [facility] Address: [address] [place] [address] Performed By: #### 4 537-7 #### [facility] CLIA [id number] [address] [place] [address] [place] Nucleated RBC (Bld) [#/Vol] 10*3/uL Normal <0.01 [facility] Comment on above: Order Comment: Speci men Type: BLOOD SPECIMEN Ordering Facility: [facility] Address: [address] [place] [address] Performed By: #### 4 537-7 #### [facility] CLIA [id number] [address] [place] [address] [place] Nucleated RBC/100 WBC (Bld) [Ratio] 0.0 /100 WBC Normal [facility] Comment on above: Order Comment: Speci men Type: BLOOD SPECIMEN Ordering Facility: [facility] Address: [address] [place] [address] Performed By: #### 4 537-7 #### [facility] CLIA [id number] [address] [place] [address] [place] Platelet mean volume (Bld) [Entitic vol] 8.1 fL Low 9.0-12.7 [facility] Comment on above: Order Comment: Speci men Type: BLOOD SPECIMEN Ordering Facility: [facility] Address: [address] [place] [address] Performed By: #### 4 537-7 #### [facility] CLIA [id number] [address] [place] [address] [place] Platelets (Bld) [#/Vol] 429 10*3/uL High 150-400 [facility] Comment on above: Order Comment: Speci men Type: BLOOD SPECIMEN Ordering Facility: [facility] Address: [address] [place] [address] Performed By: #### 4 537-7 #### [facility] CLIA [id number] [address] [place] [address] [place] RBC (Bld) [#/Vol] 4.11 10*6/uL Normal 3.90-5.20 [facility] Comment on above: Order Comment: Speci men Type: BLOOD SPECIMEN Ordering Facility: [facility] Address: [address] [place] [address] Performed By: #### 4 537-7 #### [facility] CLIA [id number] [address] [place] [address] [place] WBC (Bld) [#/Vol] 12.11 10*3/uL High 3.70-11.00 [facility] Comment on above: Order Comment: Speci men Type: BLOOD SPECIMEN Ordering Facility: [facility] Address: [address] [place] [address] Performed By: #### 4 537-7 #### [facility] CLIA [id number] [address] [place] [address] [place] CBC panel Auto (Bld)on 09-29 Erythrocyte distribution width (RBC) [Ratio] 22.4 % High 11.5-15.0 [facility] Comment on above: Order Comment: Speci men Type: BLOOD SPECIMENOrdering Facility: [facility] Address: [address] [place] [address] Performed By: #### 5 8410-2 ####[facility]ORATORYIA [id number] [address] [place] Hematocrit (Bld) [Volume fraction] 30.3 % Low 36.0-46.0 [facility] Comment on above: Order Comment: Speci men Type: BLOOD SPECIMENOrdering Facility: [facility] Address: [address] [place] [address] Performed By: #### 5 8410-2 ####[facility] [id number] [place] [address] [place] Hemoglobin (Bld) [Mass/Vol] 8.3 g/dL Low 11.5-15.5 [facility] Comment on above: Order Comment: Speci men Type: BLOOD SPECIMENOrdering Facility: [facility] Address: [address] [place] [address] Performed By: #### 5 8410-2 ####[facility] [id number] [place] [address] [place] MCH (RBC) [Entitic mass] 20.4 pg Low 26.0-34.0 [facility] Comment on above: Order Comment: Speci men Type: BLOOD SPECIMENOrdering Facility: [facility] Address: [address] [place] [address] Performed By: #### 5 8410-2 ####[facility] [id number] [place] [id number] [place] MCHC (RBC) [Mass/Vol] 27.4 g/dL Low 30.5-36.0 [facility] Comment on above: Order Comment: Speci men Type: BLOOD SPECIMENOrdering Facility: [facility] Address: [address] [place] [address] Performed By: #### 5 8410-2 ####[facility]ORATORYCLIA [id number] [facility] [place] [address] [place] MCV (RBC) [Entitic vol] 74.4 fL Low 80.0-100.0 [facility] Comment on above: Order Comment: Speci men Type: BLOOD SPECIMENOrdering Facility: [facility] Address: [address] [place] [address] Performed By: #### 5 8410-2 ####[facility] [id number] [facility] [place] [address] [place] [facility] Nucleated RBC (Bld) [#/Vol] 10*3/uL Normal <0.01 [facility] Comment on above: Order Comment: Speci men Type: BLOOD SPECIMENOrdering Facility: [facility] Address: [address] [place] [address] Performed By: #### 5 8410-2 ####[facility] [id number] [facility] [id number] [place] [address] [place] Platelet mean volume (Bld) [Entitic vol] 8.5 fL Low 9.0-12.7 [facility] l Comment on above: Order Comment: Speci men Type: BLOOD SPECIMENOrdering Facility: [facility] Address: [address] [place] [address] Performed By: #### 5 8410-2 ####[facility] [id number] [facility] [place] [address] [place] Platelets (Bld) [#/Vol] 433 10*3/uL High 150-400 [facility] Comment on above: Order Comment: Speci men Type: BLOOD SPECIMENOrdering Facility: [facility] Address: [address] [place] [address] Performed By: #### 5 8410-2 ####[facility]ORATORYIA [id number] [facility] [place] [address] [place] RBC (Bld) [#/Vol] 4.07 10*6/uL Normal 3.90-5.20 [facility] Comment on above: Order Comment: Specelizabeth farrell Type: BLOOD SPECIMENOrdering Facility: [facility] Address: [address] [place] [address] Performed By: #### 5 8410-2 ####[facility]ORATORYCLIA [id number] [place] [address] [facility] WBC (Bld) [#/Vol] 10.69 10*3/uL Normal 3.70-11.00 [facility] Comment on above: Order Comment: Speci men Type: BLOOD SPECIMENOrdering Facility: [facility] Address: [address] [place] [id number] Performed By: #### 5 8410-2 ####[facility]ORATORYCLIA [id number] [place] [address] [facility] CONSULTon 09-29-2024 CONSULT HNO ID: [id number] Author: DERIC RALPH APRN.CNP Service: Gastroenterology Author Type: Nurse Practitioner Type: Consults Filed: 09/29/2024 15:58 Note Text: GI INITIAL CONSULT NOTE SERVICE DATE: 09/29/2024 SERVICE TIME: 1400 REASON FOR CONSULT: UC colitis flare REQUESTING PHYSICIAN: Dr. Sterling PRIMARY CARE PHYSICIAN: Beck Tee DO, ASSESSMENT/PLAN 1.) Ulcerative colitis with rectal bleeding [...] 05/21/2024 She was diagnosed with UC in 2018 [...] Onset Asthma (more content not included)... Normal [facility] CRP [Mass/Vol] 0.6 mg/dL Normal <0.9 [facility] raman Comment on above: Order Comment: Speci men Type: BLOOD SPECIMENOrdering Facility: [facility] Address: [address] [place] [address] Performed By: #### 2 4323-8, 1988-03 ####[facility]ORATORYCLIA [id number] [facility] [place] [address] [place] Calprotectin (Stl) [Mass/Mas s]on 09-29-2024 CALPROTECTIN, FECAL INTERP Elevated Abnormal Normal [facility] Comment on above: Order Comment: Speci men Type: BLOOD SPECIMEN [facility] Address: [address] [place] [address] Result Comment: Inte rpretation: <50.0 ug/g: Normal 50.0 ug/g - 120.0 ug/g: Borderline elevated. Re-evaluation in 4-6 weeks is recommended if clinically indicated. >120.0 ug/g: Elevated Performed By: #### 4 537-7 #### [facility] CLIA [id number] [address] [place] [address] [place] CALPROTECTIN, FECAL QUANTITATIVE 3080 ug/g High <50 [facility] Comment on above: Order Comment: Speci men Type: BLOOD SPECIMEN [facility] Address: [address] [place] [address] Performed By: #### 4 537-7 #### [facility] CLIA [id number] [address] [place] [address] [place] Comprehensive metabolic 2000 panelon 09-29-2024 Albumin [Mass/Vol] 4.0 g/dL Normal 3.9-4.9 [facility] Comment on above: Order Comment: Speci men Type: BLOOD SPECIMENOrdering Facility: [facility] Address: [address] [place] [address] Performed By: #### 2 4323-8, 1988-03 ####[facility]ORATORYCLIA [id number] [place] [address] [place] ALP [Catalytic activity/Vol] 58 U/L Normal 34-123 [facility] Comment on above: Order Comment: Speci men Type: BLOOD SPECIMENOrdering Facility: [facility] Address: [address] [place] [address] Performed By: #### 2 4323-8, 1988-03 ####[facility]ORATORYCLIA [id number] [place] [address] [place] ALT [Catalytic activity/Vol] 20 U/L Normal 7-38 [facility] Comment on above: Order Comment: Speci men Type: BLOOD SPECIMENOrdering Facility: [facility] Address: [address] [place] [address] Performed By: #### 2 4323-07, 1988-03 ####[facility]ORATORYCLIA [id number] [place] [address] [place] Anion gap [Moles/Vol] 12 mmol/L Normal 8-15 [facility] Comment on above: Order Comment: Speci men Type: BLOOD SPECIMENOrdering Facility: [facility] Address: [address] [place] [address] Performed By: #### 2 4323-07, 1988-03 ####[facility]ORATORYCLIA [id number] [place] [address] [place] AST [Catalytic activity/Vol] 13 U/L Normal 13-35 [facility] Comment on above: Order Comment: Speci men Type: BLOOD SPECIMENOrdering Facility: [facility] Address: [address] [place] [address] Performed By: #### 2 4323-07, 1988-03 ####[facility]ORATORYIA [id number] [place] [address] [place] Bilirubin [Mass/Vol] mg/dL Low 0.2-1.3 [facility] Comment on above: Order Comment: Speci men Type: BLOOD SPECIMENOrdering Facility: [facility] Address: [address] [place] [id number] Performed By: #### 2 4323-07, 1988-03 ####[facility]ORATORYIA [id number] [place] [address] [place] Calcium [Mass/Vol] 9.3 mg/dL Normal 8.5-10.2 [facility] Comment on above: Order Comment: Speci men Type: BLOOD SPECIMENOrdering Facility: [facility] Address: [address] [place] [address] Performed By: #### 2 4323-07, 1988-03 ####[facility]ORATORYCLIA [id number] [facility] [place] [address] [place] Chloride [Moles/Vol] 104 mmol/L Normal 98-107 [facility] Comment on above: Order Comment: Speci men Type: BLOOD SPECIMENOrdering Facility: [facility] Address: [address] [place] [address] Performed By: #### 2 4328, 1988-03 ####[facility]ORATORYCLIA [id number] [place] [address] [place] CO2 [Moles/Vol] 23 mmol/L Normal 22-30 [facility] Comment on above: Order Comment: Speci men Type: BLOOD SPECIMENOrdering Facility: [facility] Address: [address] [place] [address] Performed By: #### 2 43238, 1988-03 ####[facility] [id number] [place] [address] [place] Creatinine [Mass/Vol] 0.92 mg/dL Normal 0.58-0.96 [facility] Comment on above: Order Comment: Speci men Type: BLOOD SPECIMENOrdering Facility: [facility] Address: [address] [place] [address] Performed By: #### 2 43238, 1988-03 ####[facility]ITALIA [id number] [place] [address] [facility] [place] Creatinine and Glomerular filtration rate.predicted panel (S/P/Bld) 79 mL/min/1.73m??? Normal >=60 [facility] Comment on above: Order Comment: Speci men Type: BLOOD SPECIMENOrdering Facility: [facility] Address: [address] [place] [address] Result Comment: Michelle mated Glomerular Filtration Rate [...] reflect actual GFR. Performed By: #### 2 43238, 1988-03 ####[facility]ITALIA [id number] [place] [address] [place] Glucose [Mass/Vol] 135 mg/dL High 74-99 [facility] Comment on above: Order Comment: Ayaka farrell Type: BLOOD SPECIMENOrdering Facility: [facility] Address: [address] [place] [address] Result Comment: The [place] [employer] (ADA) provides guidance for cutoff [...] Standards of Medical Care in Diabetes 2016, [place] [employer]. Diabetes Care. 2016.39(Suppl 1). Performed By: #### 2 4323, 1988-03 ####[facility]ITALIA [id number] [place] [address] [place] Potassium [Moles/Vol] 3.4 mmol/L Low 3.7-5.1 [facility] Comment on above: Order Comment: Ayaka farrell Type: BLOOD SPECIMENOrdering Facility: [facility] Address: [address] [place] [address] Performed By: #### 2 43238, 1988-03 ####[facility]ITALIA [id number] [place] [address] [place] Protein [Mass/Vol] 6.5 g/dL Normal 6.3-8.0 [facility] Comment on above: Order Comment: Ayaka farrell Type: BLOOD SPECIMENOrdering Facility: [facility] Address: [address] [place], [place] [address] Performed By: #### 2 43238, 1988-03 ####[facility]ORATORYCLIA [id number] [place] [address] [place] [facility] Sodium [Moles/Vol] 139 mmol/L Normal 136-144 [facility]ital Comment on above: Order Comment: Speci men Type: BLOOD SPECIMENOrdering Facility: [facility] Address: [address] [place] [address] Performed By: #### 2 4323, 1988-03 ####[facility]ORATORYCLIA [id number] [place] [address] [place] Urea nitrogen [Mass/Vol] 16 mg/dL Normal 7-21 [facility] Comment on above: Order Comment: Speci men Type: BLOOD SPECIMENOrdering Facility: [facility] Address: [address] [place] [address] Performed By: #### 2 43238, 1988-03 ####[facility] LABORATORYIA [id number] [place] [address] [facility] ED PROV NOTEon 09-29-2024 ED PROV NOTE HNO ID: [id number] Author: ALESHA VALE MD Service: Emergency Medicine Author Type: Physician Type: ED Provider Notes Filed: 09/29/2024 04:21 Note Text: ED Provider Note Patient Name: Angeal Elam : 1980 SERVICE DATE: 09/29/24 History Patient presents with: Rectal Bleeding: X 3 days. Pt states hx of ulcerative colitis. Was instructed by to come to ED for further eval. [...] History provided by: Medical records and patient medical interpreter used: No PAST MEDICAL HISTORY Diagnosis Date [...] as of 09/29/24 0421 Alesha Vale's Documentation Wed Sep 29, 2024 0354 Patient is a 44-year-old female with history of ulcerative colitis who presents emergency department with increased episodes of blood in her stool she endorses br (more content not included)... Normal [facility] ESR Westergren method (Bld) [Velocity]on 09-29-2024 ESR (Bld) [Velocity] 13 mm/h Normal 0-20 [facility] Comment on above: Order Comment: Speci men Type: BLOOD SPECIMEN [facility] Address: [address] [place] [address] Performed By: #### 4 537-7 #### [facility] CLIA [id number] [address] [place] [address] [place] Gastrointestinal pathogens i dentified ART+probe Nom (Stl)on 09-29-2024 Campylobacter sp DNA ART+probe Nom (Unsp spec) Not detected Normal Not Detected [facility] Comment on above: Order Comment: Speci men Type: BLOOD SPECIMEN [facility] Facility[facility] Address: [address] [place] [address] Performed By: #### 4 537-7 #### [facility] CLIA [id number] [address] [place] [address] [place] Salmonella sp DNA ART+probe Ql (Unsp spec) Not detected Normal Not Detected [facility] Comment on above: Order Comment: Speci men Type: BLOOD SPECIMEN [facility]ing Facility: [facility] Address: [address] [place] [address] Performed By: #### 4 537-7 #### [facility] CLIA [id number] [address] [place] [address] [place] Shiga toxin stx gene ART+probe Nom (Unsp spec) Not detected Normal Not Detected [facility] Comment on above: Order Comment: Speci men Type: BLOOD SPECIMEN [facility] Facility: [facility] Address: [address] [place] [address] Performed By: #### 4 537-7 #### [facility] CLIA [id number] [address] [place] [address] [place] Shigella sp DNA ART+probe Ql (Unsp spec) Not detected Normal Not Detected [facility] Comment on above: Order Comment: Speci men Type: BLOOD SPECIMEN [facility] Address: [address] [place] [address] Performed By: #### 4 537-7 #### [facility] CLIA [id number] [address] [place] [address] [place] HISTORY PHYSICALon HISTORY PHYSICAL HNO ID: [id number] Author: JOSE ARMANDO STERLING MD Service: Hospital Medicine Author Type: Physician Type: H&P Filed: 09/29/2024 05:34 Note Text: DEPARTMENT OF HOSPITAL MEDICINE HISTORY AND PHYSICAL EXAM SERVICE DATE: 09/29/2024 SERVICE TIME: 4:13 AM Primary Care Physician: Beck Tee DO, NIGHT AND WEEKEND COVERAGE: RONIT COVERAGE: Days: , please contact via [email or web address] Nights: floor: please page Hospitalist night cover [phone] - 4W: please page Hospitalist night cover #[phone] - 5th floor: please page Hospitalist night cover #[phone] - SDU (17:00 - 19:00): Please page #[phone] - SDU (19:00 - 07:00): Please call [facility] at [phone] Subjective CHIEF COMPLAINT: Bright red bleeding per [...] 33.59 kg/(m (more content not included)... Normal [facility] Magnesium SerPl-mCncon 09-29 Magnesium [Mass/Vol] 2.1 mg/dL Normal 1.7-2.3 [facility] Comment on above: Order Comment: Speci men Type: BLOOD SPECIMEN [facility] Address: [address] [place] [address] Performed By: #### 4 537-7 #### [facility] CLIA [id number] [address] [place] [address] [place] NURSING PROGon 09-29-2024 NURSING PROG HNO ID: [id number] Author: DEANA WILSON, [place] Service: Nursing Author Type: Registered Nurse Type: Nursing Progress Note Filed: 09/29/2024 23:09 Note Text: Other: received into room 521 from ED at 1913. Up to BR with steady gait. Voiding without difficulty. Normal [facility] SEPSIS LACTATE W/ REFLEX (IN ITIAL)on 09-29-2024 Lactate [Moles/Vol] 1.6 mmol/L Normal 0.0-2.0 [facility] Comment on above: Order Comment: Speci men Type: BLOOD SPECIMENOrdering Facility: [facility] Address: [address] [place] [address] Performed By: #### S LACTR ####[facility]ORATORYCLIA [id number] [facility] [place] [address] [place] XR ABD 2V SUPINE W [...] ligation clips are noted. IMPRESSION: Possible constipation. Potato Inspector: REINALDO Transcribe Date/Time: Sep 30 2024 7:15A Dictated by : BRANDAN FLOR MD This examination was interpreted and the report reviewed and electronically signed by: BRANDAN FLOR MD on Sep 30 2024 7:15AM EST [id number] [facility] 09-27-[address] [facility] Telephone (GASTNO) ANGELA ELAM ([id number]) 1980 F Date Time Provider Department 09/27/24 MAK MARTINEZ During your visit today, we recorded the following information about you: Melanie Lechuga RN 09/27/2024 9:34 AM Signed Yuli James RPh 09/06/24 6:08 PM [facility] received prescription(s) for Skyrizi from Dr. Martinez's office. Benefits investigation was conducted, indicating that a prior authorization is required by patient's insurance plan with [employer]. Encounter will be updated once prior authorization has been submitted by [facility]. Pt has not yet received infusion doses. Yuli James, PharmD Clinical Pharmacist, [employer] [facility] ; Pool: P [facility] Pool #: [id number] Colton Roldan, I just wanted to let you know that the patient will be getting her infusions on 10/01, 10/29, and 11/26. Will be due to start injections (OBI) on 11/24. Thanks! AUSTIN Whaley Chelsea A RN 09/27/2024 11:29 AM Signed Yuli James [facility] You; [facility] 21 hour ago (9:49 AM) Thanks for letting us know Melanie! We will make sure we submit PA before her third infusion dose. Thanks! Melanie Pickard RN 11/25/2024 12:45 PM Signed In the [facility] encounter dated 09/06/24, it states that a PA for Skyrizi OBI was done on 11/01/24: Ursula Zamorano 11/01/24 8:28 AM Skyrizi OBI PA was initiated and pending review. Plan [facility] Garcia: [id number] Ursula Zamorano [facility] [phone] I looked in CMM and found that [...] Encounter Status:Closed by MELANIE LECHUGA on 09/27/24 [facility] 09-21-[address] [facility] Telephone (MAYRA) ANGELA ELAM ([id number]) 1980 F Date Time Provider Department 09/21/24 [...] DERIC INMAN on 09/21/24 Normal [facility] CBC W Auto Differential pane l (Bld)on 09-17-2024 Basophils (Bld) [#/Vol] 0.03 10*3/uL [facility] Basophils/100 WBC (Bld) 0.3 % [facility] Differential cell count method Nom (Bld) Auto [facility] Eosinophils (Bld) [#/Vol] NINF [facility] Eosinophils/100 WBC (Bld) 0.1 % [facility] Erythrocyte distribution width (RBC) [Ratio] 19.0 % High 11.5 - 15.0 % [facility] Hematocrit (Bld) [Volume fraction] 32.2 % Low 36.0 - 46.0 % [facility] Hemoglobin (Bld) [Mass/Vol] 8.7 g/dL Low 11.5 - 15.5 g/dL [facility] Immature granulocytes (Bld) [#/Vol] 0.06 10*3/uL [facility] Immature granulocytes/100 WBC (Bld) 0.5 % [facility] Interpretation and review of laboratory results Abnormal [facility] Lymphocytes (Bld) [#/Vol] 0.76 10*3/uL Low [facility] Lymphocytes/100 WBC (Bld) 6.9 % [facility] MCH (RBC) [Entitic mass] 19.1 pg Low 26.0 - 34.0 pg [facility] MCHC (RBC) [Mass/Vol] 27.0 g/dL Low 30.5 - 36.0 g/dL [facility] MCV (RBC) [Entitic vol] 70.6 fL Low 80.0 - 100.0 fL [facility] Monocytes (Bld) [#/Vol] 0.14 10*3/uL [facility] Monocytes/100 WBC (Bld) 1.3 % [facility] Neutrophils (Bld) [#/Vol] 9.95 10*3/uL High [facility] Neutrophils/100 WBC (Bld) 90.9 % [facility] Nucleated RBC (Bld) [#/Vol] [facility] Nucleated RBC/100 WBC (Bld) [Ratio] 0.0 % /100 WBC [facility] Platelet mean volume (Bld) [Entitic vol] 8.3 fL Low 9.0 - 12.7 fL [facility] Platelets (Bld) [#/Vol] 526 10*3/uL High [facility] RBC (Bld) [#/Vol] 4.56 10*6/uL 3.90 - 5.2 0 m/uL [facility] WBC (Bld) [#/Vol] 10.95 10*3/uL [facility] Basophils (Bld) [#/Vol] 0.03 10*3/uL Normal <0.11 [facility] Comment on above: Order Comment: Speci men Type: BLOOD SPECIMENOrdering Facility: [facility] Address: [address] [place] [address] Performed By: #### 1 4196-0, 03392-7 ####[facility]CLIA [id number] [place] [address] Basophils/100 WBC (Bld) 0.3 % Normal [facility] Comment on above: Order Comment: Speci men Type: BLOOD SPECIMENOrdering Facility: [facility] Address: [address] [place] [address] Performed By: #### 1 4196-0, ####[facility] LABCLIA [id number] [place] [address] Differential cell count method Nom (Bld) Auto Normal [facility] Comment on above: Order Comment: Speci men Type: BLOOD SPECIMENOrdering Facility: [facility] Address: [address] [place] [address] Performed By: #### 1 4196-0, 27726-7 ####[facility] LABCLIA [id number] [place] [address] Eosinophils (Bld) [#/Vol] 10*3/uL Normal <0.46 [facility] Comment on above: Order Comment: Speci men Type: BLOOD SPECIMENOrdering Facility: [facility] Address: [address] [place] [address] Performed By: #### 1 4196-0, 49382-5 ####[facility]CLIA [id number] [place] [address] Eosinophils/100 WBC (Bld) 0.1 % Normal [facility] Comment on above: Order Comment: Speci men Type: BLOOD SPECIMENOrdering Facility: [facility] Address: [address] [place] [address] Performed By: #### 1 4196-0, 72788-9 ####[facility] LABCLIA [id number] [place] [address] Erythrocyte distribution width (RBC) [Ratio] 19.0 % High 11.5-15.0 [facility] Comment on above: Order Comment: Speci men Type: BLOOD SPECIMENOrdering Facility: [facility] Address: [address] [place] [address] Performed By: #### 1 4196-0, 02929-8 ####[facility] LABCLIA [id number] [place] [address] Hematocrit (Bld) [Volume fraction] 32.2 % Low 36.0-46.0 [facility] Comment on above: Order Comment: Speci men Type: BLOOD SPECIMENOrdering Facility: [facility] Address: [address] [place] [address] Performed By: #### 1 4196-0, 25047-5 ####[facility]IA [id number] [place] [address] Hemoglobin (Bld) [Mass/Vol] 8.7 g/dL Low 11.5-15.5 [facility] Comment on above: Order Comment: Speci men Type: BLOOD SPECIMENOrdering Facility: [facility] Address: [address] [place] [address] Performed By: #### 1 4196-0, 23891-8 ####[facility]IA [id number] [place] [address] Immature granulocytes (Bld) [#/Vol] 0.06 10*3/uL Normal <0.10 [facility] Comment on above: Order Comment: Speci men Type: BLOOD SPECIMENOrdering Facility: [facility] Address: [address] [place] [address] Performed By: #### 1 4196-0, 73522-3 ####[facility]IA [id number] [place] [address] Immature granulocytes/100 WBC (Bld) 0.5 % Normal [facility] Comment on above: Order Comment: Speci men Type: BLOOD SPECIMENOrdering Facility: [facility] Address: [address] [place] [address] Performed By: #### 1 4196-0, 92933-2 ####[facility] LABCLIA [id number] [place] [address] Lymphocytes (Bld) [#/Vol] 0.76 10*3/uL Low 1.00-4.00 [facility] Comment on above: Order Comment: Speci men Type: BLOOD SPECIMENOrdering Facility: [facility] Address: [address] [place] [address] Performed By: #### 1 4196-0, 92943-6 ####[facility]CLIA [id number] [place] [address] Lymphocytes/100 WBC (Bld) 6.9 % Normal [facility] Comment on above: Order Comment: Speci men Type: BLOOD SPECIMENOrdering Facility: [facility] Address: [address] [place] [address] Performed By: #### 1 4196-0, 30853-0 ####[facility] LABCLIA [id number] [place] [address] MCH (RBC) [Entitic mass] 19.1 pg Low 26.0-34.0 [facility] Comment on above: Order Comment: Speci men Type: BLOOD SPECIMENOrdering Facility: [facility] Address: [address] [place] [address] Performed By: #### 1 4196-0, 92713-4 ####[facility]CLIA [id number] [place] [address] MCHC (RBC) [Mass/Vol] 27.0 g/dL Low 30.5-36.0 [facility] Comment on above: Order Comment: Speci men Type: BLOOD SPECIMENOrdering Facility: [facility] Address: [address] [place] [address] Performed By: #### 1 4196-0, 74809-3 ####[facility]CLIA [id number] [place] [address] MCV (RBC) [Entitic vol] 70.6 fL Low 80.0-100.0 [facility] Comment on above: Order Comment: Speci men Type: BLOOD SPECIMENOrdering Facility: [facility] Address: [address] [place] [address] Performed By: #### 1 4196-0, 20077-3 ####[facility]CLIA [id number] [place] [address] Monocytes (Bld) [#/Vol] 0.14 10*3/uL Normal <0.87 [facility] Comment on above: Order Comment: Speci men Type: BLOOD SPECIMENOrdering Facility: [facility] Address: [address] [place] [address] Performed By: #### 1 4196-0, 71745-5 ####[facility]IA [id number] [place] [address] Monocytes/100 WBC (Bld) 1.3 % Normal [facility] Comment on above: Order Comment: Speci men Type: BLOOD SPECIMENOrdering Facility: [facility] Address: [address] [place] [address] Performed By: #### 1 4196-0, 74541-3 ####[facility]CLIA [id number] [place] [address] Neutrophils (Bld) [#/Vol] 9.95 10*3/uL High 1.45-7.50 [facility] Comment on above: Order Comment: Speci men Type: BLOOD SPECIMENOrdering Facility: [facility] Address: [address] [place] [address] Performed By: #### 1 4196-0, 95441-7 ####[facility] LABCLIA [id number] [place] [address] Neutrophils/100 WBC (Bld) 90.9 % Normal [facility] Comment on above: Order Comment: Speci men Type: BLOOD SPECIMENOrdering Facility: [facility] Address: [address] [place] [address] Performed By: #### 1 4196-0, 16354-1 ####[facility] LABCLIA [id number] [place] [address] Nucleated RBC (Bld) [#/Vol] 10*3/uL Normal <0.01 [facility] Comment on above: Order Comment: Speci men Type: BLOOD SPECIMENOrdering Facility: [facility] Address: [address] [place] [address] Performed By: #### 1 4196-0, 14880-4 ####[facility]IA [id number] [place] [address] Nucleated RBC/100 WBC (Bld) [Ratio] 0.0 /100 WBC Normal [facility] Comment on above: Order Comment: Speci men Type: BLOOD SPECIMENOrdering Facility: [facility] Address: [address] [place] [address] Performed By: #### 1 4196-0, 63891-7 ####[facility] LABCLIA [id number] [place] [address] Platelet mean volume (Bld) [Entitic vol] 8.3 fL Low 9.0-12.7 [facility] Comment on above: Order Comment: Speci men Type: BLOOD SPECIMENOrdering Facility: [facility] Address: [address] [place] [address] Performed By: #### 1 4196-0, 75397-8 ####[facility] LABCLIA [id number] [place] [address] Platelets (Bld) [#/Vol] 526 10*3/uL High 150-400 [facility] Comment on above: Order Comment: Speci men Type: BLOOD SPECIMENOrdering Facility: [facility] Address: [address] [place] [address] Performed By: #### 1 4196-0, 09096-4 ####[facility] LABCLIA [id number] [place] [address] RBC (Bld) [#/Vol] 4.56 10*6/uL Normal 3.90-5.20 [facility] Comment on above: Order Comment: Speci men Type: BLOOD SPECIMENOrdering Facility: [facility] Address: [address] [place] [address] Performed By: #### 1 4196-0, 65673-1 ####[facility] LABIA [id number] [place] [address] WBC (Bld) [#/Vol] 10.95 10*3/uL Normal 3.70-11.00 [facility] Comment on above: Order Comment: Speci men Type: BLOOD SPECIMENOrdering Facility: [facility] Address: [address] [place] [address] Performed By: #### 1 4196-0, 27237-1 ####[facility] LABCLIA [id number] [place] [address] CNOVSPon 09-17-2024 OVS Visit (SP) Office (HEMAS[place]) ANGELA ELAM ([id number]) 1980 F Date Time Provider Department 09/17/24 2:30 PM DILMA MONTES During your visit today, we recorded the following information about you: Temperature Pulse Respiration Blood pressure 97.7 degrees 114/minute 16/minute 131/88 Weight Height Last Period 94.4 kg 1.676 m 03/02/23 Dilma Montes PA-C 09/17/2024 3:49 PM Signed [facility] CLINICAL CONSULTATION NOTE Hematologic Oncology and [...] 44 year old woman presenting here to [facility] care. Patient's iron deficiency anemia was previously [...] infusions: Yes; GI doctor Dr. 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 Normal [facility] metabolic 2000 panelOrdered By: Yue Olmstead on 09-17-2024 Albumin [Mass/Vol] 4.1 g/dL 3.9 - 4.9 g/dL [facility] ALP [Catalytic activity/Vol] 60 U/L 34 - 123 U/L [facility] ALT [Catalytic activity/Vol] 16 U/L 7 - 38 U/L [facility] Anion gap [Moles/Vol] 9 mmol/L 8 - 15 mmol/L [facility] AST [Catalytic activity/Vol] 15 U/L 13 - 35 U/L [facility] Bilirubin [Mass/Vol] 0.2 mg/dL 0.2 - 1 .3 mg/dL [facility] Calcium [Mass/Vol] 9.4 mg/dL 8.5 - 10. 2 mg/dL [facility] Chloride [Moles/Vol] 104 mmol/L 98 - 10 7 mmol/L [facility] CO2 [Moles/Vol] 24 mmol/L 22 - 30 mmol/L [facility] Creatinine [Mass/Vol] 0.94 mg/dL 0.58 - 0.96 mg/dL [facility] GFR/1.73 sq M.predicted among non-blacks MDRD (S/P/Bld) [Vol rate/Area] 77 mL/min/{1.73_m2} - PINF [facility] Comment on above: Estimated Glomerular Filtration Rate [...] [Mass/Vol] 98 mg/dL 74 - 99 mg/dL [facility] Comment on above: The [place] Diab[employer] Association (ADA) provides guidance for [...] Standards of Medical Care in Diabetes 2016, [place] Diabetes Association. Diabetes Care. 2016.39(Suppl 1). Interpretation and review of laboratory results Normal [facility] Potassium [Moles/Vol] 3.8 mmol/L 3.7 - 5.1 mmol/L [facility] Protein [Mass/Vol] 6.9 g/dL 6.3 - 8.0 g/dL [facility] Sodium [Moles/Vol] 137 mmol/L 136 - 144 mmol/L [facility] Urea nitrogen [Mass/Vol] 9 mg/dL 7 - 21 mg/dL [facility] metabolic 2000 panelon 09-17-2024 Albumin [Mass/Vol] 4.1 g/dL Normal 3.9-4.9 [facility] Comment on above: Order Comment: Speci men Type: BLOOD SPECIMENOrdering Facility: [facility] Address: [address] [place] [address] Performed By: #### 2 4323-8, 2531-0 ####[facility] LABCLIA [id number] [place] [address] ALP [Catalytic activity/Vol] 60 U/L Normal 34-123 [facility] Comment on above: Order Comment: Speci men Type: BLOOD SPECIMENOrdering Facility: [facility] Address: [address] [place] [address] Performed By: #### 2 4323-8, 2531-0 ####[facility] LABIA [id number] [place] [address] ALT [Catalytic activity/Vol] 16 U/L Normal 7-38 [facility] Comment on above: Order Comment: Speci men Type: BLOOD SPECIMENOrdering Facility: [facility] Address: [address] [address] Performed By: #### 2 4323-8, 2532-0 ####[facility] LABIA [id number] [place] [address] Anion gap [Moles/Vol] 9 mmol/L Normal 8-15 [facility] Comment on above: Order Comment: Speci men Type: BLOOD SPECIMENOrdering Facility: [facility] Address: [address] [place] [address] Performed By: #### 2 4323-8, 2532-0 ####[facility] LABCLIA [id number] [place] [address] AST [Catalytic activity/Vol] 15 U/L Normal 13-35 [facility] Comment on above: Order Comment: Speci men Type: BLOOD SPECIMENOrdering Facility: [facility] Address: [address] [place] [address] Performed By: #### 2 4323-8, 2531-0 ####[facility] LABCLIA [id number] [place] [address] Bilirubin [Mass/Vol] 0.2 mg/dL Normal 0.2-1.3 [facility] Comment on above: Order Comment: Speci men Type: BLOOD SPECIMENOrdering Facility: [facility] Address: [address] [place] [address] Performed By: #### 2 43238, 2531-0 ####[facility] LABCLIA [id number] [place] [address] Calcium [Mass/Vol] 9.4 mg/dL Normal 8.5-10.2 [facility] Comment on above: Order Comment: Speci men Type: BLOOD SPECIMENOrdering Facility: [facility] Address: [address] [place] [address] Performed By: #### 2 4323-8, 2531-0 ####[facility] LABCLIA [id number] [place] [address] Chloride [Moles/Vol] 104 mmol/L Normal 98-107 [facility] Comment on above: Order Comment: Speci men Type: BLOOD SPECIMENOrdering Facility: [facility] Address: [address] [place] [address] Performed By: #### 2 4323-8, 2531-0 ####[facility] LABCLIA [id number] [place] [address] CO2 [Moles/Vol] 24 mmol/L Normal 22-30 [facility] Comment on above: Order Comment: Speci men Type: BLOOD SPECIMENOrdering Facility: [facility] Address: [address] [address] Performed By: #### 2 4323-8, 2531-0 ####[facility] LABCLIA [id number] [place] [address] Creatinine [Mass/Vol] 0.94 mg/dL Normal 0.58-0.96 [facility] Comment on above: Order Comment: Speci men Type: BLOOD SPECIMENOrdering Facility: [facility] Address: [address] [place] [address] Performed By: #### 2 4323-8, 2531-0 ####[facility] LABCLIA [id number] [place] [address] Creatinine and Glomerular filtration rate.predicted panel (S/P/Bld) 77 mL/min/1.73m??? Normal >=60 [facility] Comment on above: Order Comment: Speci men Type: BLOOD SPECIMENOrdering Facility: [facility] Address: [address] [place] [address] Result Comment: Michelle mated Glomerular Filtration Rate [...] reflect actual GFR. Performed By: #### 2 4323-8, 0 ####[facility] LABIA [id number] [place] [address] Glucose [Mass/Vol] 98 mg/dL Normal 74-99 [facility] Comment on above: Order Comment: Speci men Type: BLOOD SPECIMENOrdering Facility: [facility] Address: [address] [id number] Result Comment: The [place] Diabetes Association (ADA) provides guidance for cutoff [...] Standards of Medical Care in Diabetes 2016, [place] [employer]. Diabetes Care. 2016.39(Suppl 1). Performed By: #### 2 43238, 0 ####[facility] LABCLIA [id number] [place] [address] Potassium [Moles/Vol] 3.8 mmol/L Normal 3.7-5.1 [facility] Comment on above: Order Comment: Speci men Type: BLOOD SPECIMENOrdering Facility: [facility] Address: [address] [place] [address] Performed By: #### 2 43202-05, 0 ####[facility] LABCLIA [id number] [place] [address] Protein [Mass/Vol] 6.9 g/dL Normal 6.3-8.0 [facility] Comment on above: Order Comment: Speci men Type: BLOOD SPECIMENOrdering Facility: [facility] Address: [address] [place] [address] Performed By: #### 2 43202-05, 0 ####[facility] LABCLIA [id number] [place] [address] Sodium [Moles/Vol] 137 mmol/L Normal 136-144 [facility] Comment on above: Order Comment: Speci men Type: BLOOD SPECIMENOrdering Facility: [facility] Address: [address] [id number] Performed By: #### 2 43238, 0 ####[facility] LABCLIA [id number] [place] [address] Urea nitrogen [Mass/Vol] 9 mg/dL Normal 7-21 [facility] Comment on above: Order Comment: Speci men Type: BLOOD SPECIMENOrdering Facility: [facility] Address: [address] [place] [address] Performed By: #### 2 4323-8, 2532-0 ####[facility] LABCLIA [id number] [place] [address] EPO SerPl-aCncon 09-17-2024 Erythropoietin (EPO) Qn 60.0 mIU/mL High 2.6-18.5 [facility] Comment on above: Order Comment: Speci men Type: BLOOD SPECIMENOrdering Facility: [facility] Address: [address] [place] [address] Performed By: #### 1 5061-5 ####[facility] LABCLIA [id number] [place] [address] [place] Ferritin SerPl-mCncon 2023 Ferritin [Mass/Vol] 6.5 ng/mL Low 14.7-205.1 [facility] Comment on above: Order Comment: Speci men Type: BLOOD SPECIMENOrdering Facility: [facility] Address: [address] [place] [address] Performed By: #### 4 542-7, 3016-3, 39911-3, 2276-4 ####[facility] LABCLIA [id number] [place] [address] [place] Folate SerPl-mCncon 09-17-20 Folate [Mass/Vol] 17.7 ng/mL Normal >4.7 [facility] Comment on above: Order Comment: Speci men Type: BLOOD SPECIMENOrdering Facility: [facility] Address: [address] [place] [address] Performed By: #### 2 132-9, 2885-2, 2284-8 ####[facility] LABCLIA [id number] [place] [address] [place] Haptoglob SerPl-mCncon 09-17 Haptoglobin [Mass/Vol] 143 mg/dL Normal 31-238 [facility] Comment on above: Order Comment: Speci men Type: BLOOD SPECIMENOrdering Facility: [facility] Address: [address] [place] [address] Performed By: #### 4 542-7, 3016-3, 54400-9, 2276-4 ####[facility] LABCLIA [id number] [place] [address] [place] IMMUNOFIXATION SCREEN, SERUM on 09-17-2024 MPA RESULT No M protein is identified. Normal No M protein is identified. [facility] Comment on above: Order Comment: Speci men Type: BLOOD SPECIMENOrdering Facility: [facility] Address: [address] [place] [address] Performed By: #### I FESC ####[facility] LABCLIA [id number] [place] [address] [place] STAFF REVIEW (MPA) Reviewed by Dr. Mihai Healy MD [facility] Comment on above: Order Comment: Speci men Type: BLOOD SPECIMENOrdering Facility: [facility] Address: [address] [place] [address] Performed By: #### I FESC ####[facility] LABCLIA [id number] [place] [address] [place] IMMUNOGLOBULINS,IGG,IGA,IGMo n 09-17-2024 IgA [Mass/Vol] 153 mg/dL Normal 70-400 [facility] Comment on above: Order Comment: Speci men Type: BLOOD SPECIMEN [facility] Address: [address] [place] [address] Performed By: #### S ERIMM #### [facility] CLIA [id number] [address] [place] [id number] [address] [place] IgG [Mass/Vol] 838 mg/dL Normal 700-1600 [facility] Comment on above: Order Comment: Speci men Type: BLOOD SPECIMEN [facility] Address: [address] [place] [address] Performed By: #### S ERIMM #### [facility] CLIA [id number] [address] [id number] [place] IgM [Mass/Vol] 212 mg/dL Normal 40-230 [facility] Comment on above: Order Comment: Speci men Type: BLOOD SPECIMEN [facility] Address: [address] [place] [address] Performed By: #### S ERIMM #### [facility] CLIA [id number] [address] [place] [address] [place] Iron and Iron binding capaci ty panelon 09-17-2024 Iron [Mass/Vol] 12 ug/dL Low 41-186 [facility] Comment on above: Order Comment: Speci men Type: BLOOD SPECIMENOrdering Facility: [facility] Address: [address] [place] [address] Performed By: #### 4 542-7, 3016-3, 95028-9, 6-4 ####[facility] LABCLIA [id number] [place] [address] [place] Iron binding capacity [Mass/Vol] 393 ug/dL High 232-386 [facility] Comment on above: Order Comment: Speci men Type: BLOOD SPECIMENOrdering Facility: [facility] Address: [address] [place] [address] Performed By: #### 4 542-7, 3016-3, 08520-7, 6-4 ####[facility] LABCLIA [id number] [address] [id number] [place] Iron/TIBC [Molar ratio] 3.1 % Low 15.0-57.0 [facility] Comment on above: Order Comment: Speci men Type: BLOOD SPECIMENOrdering Facility: [facility] Address: [address] [place] [address] Performed By: #### 4 542-7, 3016-3, 52162-0, 2276-4 ####[facility] LABCLIA [id number] [place] [address] [place] KAPPA/WHALEN,FREE,SERon 2023 Immunoglobulin light chains.kappa.free (S) [Mass/Vol] 13.9 mg/L Normal 3.3-19.4 [facility] Comment on above: Order Comment: Speci men Type: BLOOD SPECIMEN [facility] Address: [address] [place] [address] Result Comment: Rare ly, increased serum free light chains levels may not be detected or accurately quantified due to prozone phenomenon or in high viscosity samples using this immunoturbidimetric assay. Correlation with other laboratory results and clinical findings is recommended. The [place] Free Light Chain was performed using the Binding Site Optilite immunoturbidimetric method. Result obtained with different assay methods or kits cannot be used interchangeably. Performed By: #### C MVQNT #### [facility] CLIA [id number] [address] [place] [address] [place] Immunoglobulin light chains.kappa/Immunogl obulin light chains.lambda (S) [Mass ratio] 1.12 Normal 0.26-1.65 [facility] Comment on above: Order Comment: Speci men Type: BLOOD SPECIMEN [facility] Address: [address] [place] [address] Performed By: #### C MVQNT #### [facility] CLIA [id number] [address] [place] [address] [place] Immunoglobulin light chains.lambda.free [Mass/Vol] 12.4 mg/L Normal 5.7-26.3 [facility] Comment on above: Order Comment: Speci men Type: BLOOD SPECIMEN [facility] Address: [address] [place] [address] Result Comment: Rare ly, increased serum free [...] cannot be used interchangeably. Performed By: #### C MVQNT #### [facility] CLIA [id number] [address] [place], [place] [address] [place] LACTATE DEHYDROGENASEon 08-31 LDH [Catalytic activity/Vol] 224 U/L High 135 - 214 U/L [facility] LDH SerPl-cCncon 09-17-2024 LDH [Catalytic activity/Vol] 224 U/L High 135-214 [facility] Comment on above: Order Comment: Speci men Type: BLOOD SPECIMENOrdering Facility: [facility] Address: [address] [place] [address] Performed By: #### 2 4323-8, 2532-0 ####[facility] LABCLIA [id number] [place] [address] LDH [Catalytic activity/Vol] on 09-17-2024 Interpretation and review of laboratory results Abnormal [facility] No Panel InformationOrdered By: Yue Olmstead on 09-17-2024 [facility] No Panel Informationon 09-17 [facility] PROTEIN ELECTROPHORESIS SERU M (P)on 09-17-2024 Albumin [Mass/Vol] 4.12 g/dL Normal 3.43-5.41 [facility] Comment on above: Order Comment: Speci men Type: BLOOD SPECIMENOrdering Facility: [facility] Address: [address] [place] [address] Performed By: #### L [id number] ####[facility] LABCLIA [id number] [place] [address] [place] Alpha 1 globulin Elph [Mass/Vol] 0.33 g/dL Normal 0.18-0.43 [facility] Comment on above: Order Comment: Speci men Type: BLOOD SPECIMENOrdering Facility: [facility] Address: [address] [place] [address] Performed By: #### L [id number] ####[facility] LABIA [id number] [place] [address] [place] Alpha 2 globulin Elph [Mass/Vol] 0.65 g/dL Normal 0.42-0.98 [facility] Comment on above: Order Comment: Speci men Type: BLOOD SPECIMENOrdering Facility: [facility] Address: [address] [place] [address] Performed By: #### L [id number] ####[facility] LABIA [id number] [place] [address] [place] Beta globulin Elph [Mass/Vol] 0.86 g/dL Normal 0.61-1.17 [facility] Comment on above: Order Comment: Speci men Type: BLOOD SPECIMENOrdering Facility: [facility] Address: [address] [place] [address] Performed By: #### L [id number] ####[facility] LABIA [id number] [place] [address] [place] Gamma globulin Elph [Mass/Vol] 0.83 g/dL Normal 0.53-1.51 [facility] Comment on above: Order Comment: Speci men Type: BLOOD SPECIMENOrdering Facility: [facility] Address: [address] [place] [address] Performed By: #### L [id number] ####[facility] LABIA [id number] [place] [address] [place] M-PROTEIN LOCATION Normal [facility] Comment on above: Order Comment: Speci men Type: BLOOD SPECIMENOrdering Facility: [facility] Address: [address] [place] [address] Result Comment: Not Applicable. Performed By: #### L [id number] ####[facility] LABIA [id number] [place] [address] [place] Protein Fractions [Interp] No definitive M protein is identified on protein electrophoresis. Normal No definitive M protein is identified on protein electrophore sis. [facility] Comment on above: Order Comment: Speci men Type: BLOOD SPECIMENOrdering Facility: [facility] Address: [address] [place] [address] Performed By: #### L [id number] ####[facility] LABIA [id number] [place] [address] [place] Protein.monoclonal Elph [Mass/Vol] 0.00 g/dL Normal <=0.00 [facility] Comment on above: Order Comment: Speci men Type: BLOOD SPECIMENOrdering Facility: [facility] Address: [address] [place] [address] Performed By: #### L [id number] ####[facility] [id number] [place] [address] [place] SPE STAFF REVIEW Reviewed by Dr. Mihai Healy MD [facility] Comment on above: Order Comment: Speci men Type: BLOOD SPECIMENOrdering Facility: [facility] Address: [address] [place] [address] Performed By: #### L [id number] ####[facility] LABIA [id number] [place] [address] [place] Prot SerPl-mCncon 09-17-2024 Protein [Mass/Vol] 6.8 g/dL Normal 6.3-8.0 [facility] Comment on above: Order Comment: Speci men Type: BLOOD SPECIMENOrdering Facility: [facility] Address: [address] [place] [address] Performed By: #### 2 132-9, 2885-2, 2284-8 ####[facility] LABIA [id number] [address] [place] [address] [place] RETICULOCYTE COUNTon 024 Reticulocytes (Bld) [#/Vol] 0.072 10*3/uL [facility] Retics #on 09-17-2024 Reticulocytes (Bld) [#/Vol] 0.29203 10*3/uL Normal 0.018-0.100 [facility] Comment on above: Order Comment: Speci bud Type: BLOOD SPECIMENOrdering Facility: [facility] Address: [address] [place] [address] Performed By: #### 1 4196-0, 32975-5 ####[facility] LABCLIA [id number] [place] [address] Reticulocytes (Bld) [#/Vol]o n 09-17-2024 Interpretation and review of laboratory results Normal [facility] Reticulocytes/100 RBC (Bld) 1.6 % 0.4 - 2.0 % [facility] Reticulocytes/100 RBC (Bld) 1.6 % Normal 0.4-2.0 [facility] Comment on above: Order Comment: Ayaka farrell Type: BLOOD SPECIMENOrdering Facility: [facility] Address: [address] [place] [address] Performed By: #### 1 4196-0, 82756-8 ####[facility] LABCLIA [id number] [place] [address] TSH SerPl-aCncon 09-17-2024 TSH Qn 0.822 m[IU]/L Normal 0.270-4.200 [facility] Comment on above: Order Comment: Ayaka farrell Type: BLOOD SPECIMENOrdering Facility: [facility] Address: [address] [place] [address] Result Comment: If t he patient is , TSH reference range varies by gestational period: First Trimester (weeks 9-12): 0.180-2.990 mIU/L Second Trimester: 0.110-3.980 mIU/L Third Trimester: 0.480-4.710 mIU/L Memo Andino et al. A Practical Approach for the Verifications and Determination of Site- and Trimester-Specific Reference Intervals for Thyroid Function tests in . Thyroid, 2019:29:3:412-420. Blu E, et al. 2017 Guidelines of the [place] [employer] for the Diagnosis and Management of Thyroid Disease during and the . Thyroid, 2017:27:3:315-389. Performed By: #### 4 542-7, 3016-3, 41715-2, 2276-4 ####[facility] LABIA [id number] [place] [address] [place] Vit B12 SerPl-mCncon 18-2 024 Cobalamin (Vitamin B12) [Mass/Vol] 616 pg/mL Normal 232-1245 [facility] Comment on above: Order Comment: Speci men Type: BLOOD SPECIMENOrdering Facility: [facility] Address: [address] [place] [address] Performed By: #### 2 132-9, 2885-2, 2284-8 ####[facility] LABIA [id number] [address] [facility] CNPNon 09-13-2024 CNPN Telephone ([facility]) ANGELA ELAM ([id number]) 1980 F Date Time Provider Department 09/13/24 [...] needful. Call for Peer to Peer - [phone] then option 2-5-2 Thank You === PHARMACY TEAM ==== PEER TO PEER/APPEAL REQUESTED PROVIDER TO COMPLETE Melanie eLchuga RN 09/17/2024 12:17 PM Signed I just [...] Fully Assessed Reason for Visit: Insurance Authorization [[id number]] Cmt: Peer to Peer , , VENITA [...] Status:Closed by JONATHON NEWELL on 09/13/24 [facility] C. difficile toxin A+B tcdA+ tcdB genes ART+probe Ql (Stl)on 09-09-2024 C. difficile toxin B Cytotoxin tissue culture assay Ql (Stl) Comment [facility] Comment on above: Negative No cytotoxin detected. Reference Range: Negative Performed at: 01 - [address] [id number] [employer] Housing Inspector: Angel Lorenzana PhD, Phone: [phone] [facility] CNCOon 09-09-2024 CNCO Letter Text Normal [facility] Cytology Cervical or vaginal smear or scraping studyOrdered By: Gabriella Hairston on 01-19-2024 [facility] CARDIAC ELKE 3-6on 3 CK [Catalytic activity/Vol] 47 U/L Normal 26-192 [facility] Comment on above: Performed By: #### C RP, CK, CMADM, BMP #### [facility] [address] [address] [address] Baldev Moreau CK.MB [Mass/Vol] 1.11 ng/mL Normal <=3.60 [facility] Comment on above: Performed By: #### C RP, CK, CMADM, BMP #### [facility] [address] [address] [address] Baldev Moreau HSTROP 5.4 pg/mL Normal 4.0-51.3 [facility] Comment on above: Result Comment: CUT- OFF POINTS HAVE BEEN ESTABLISHED BASED ON THE FOURTH UNIVERSAL DEFINITIONS OF MYOCARDIAL INFARCTION. THE UPPER REFERENCE LIMIT (URL) OF TROPONIN, DEFINED THE 99TH PERCENTILE OF cTnI DISTRIBUTION IN A REFERENCE POPULATION, HAS BEEN CONFIRMED THE DECISION THRESHOLD FOR GA DIAGNOSIS. Performed By: #### C RP, CK, CMADM, BMP #### [facility] [address] [address] [address] Baldev Moreau CARDIAC ELKE ADMITon 023 CK [Catalytic activity/Vol] 56 U/L Normal 26-192 [facility] Comment on above: Performed By: #### C RP, CK, CMADM, BMP #### [facility] [address] [address] [address] Yilan Moreau CK.MB [Mass/Vol] 1.13 ng/mL Normal <=3.60 [facility] Comment on above: Performed By: #### C RP, CK, CMADM, BMP #### [facility] [address] [place] [address] Dr. Baldev Moreau HSTROP 6.3 pg/mL Normal 4.0-51.3 [facility] Comment on above: Result Comment: CUT- OFF POINTS HAVE BEEN ESTABLISHED BASED ON THE FOURTH UNIVERSAL DEFINITIONS OF MYOCARDIAL INFARCTION. THE UPPER REFERENCE LIMIT (URL) OF TROPONIN, DEFINED THE 99TH PERCENTILE OF cTnI DISTRIBUTION IN A REFERENCE POPULATION, HAS BEEN CONFIRMED THE DECISION THRESHOLD FOR GA DIAGNOSIS. Performed By: #### C RP, CK, CMADM, BMP #### [facility] [address] [place] [address] Dr. Baldev Moreau LANDY 43 ng/mL Normal 9-82 [facility] Comment on above: Performed By: #### C RP, CK, CMADM, BMP #### [facility] [address] [place] [address] Dr. Baldev Moreau CBC AUTO DIFFon 02-20-2023 BASO # 0.0 103/ul Normal 0.0-0.1 [facility] Comment on above: Performed By: #### C BC #### [facility] [address] [place] [address] Dr. Baldev Moreau Basophils/100 WBC (Bld) 0.4 % Normal 0.2-2.0 [facility] Comment on above: Performed By: #### C BC #### [facility] [address] [place] [address] Dr. Baldev Moreau EO # 0.6 103/ul Normal 0.0-0.7 [facility] Comment on above: Performed By: #### C BC #### [facility] [address] [place] [address] Dr. Baldev Moreau Eosinophils/100 WBC (Bld) 7.1 % Critically high 0.9-7.0 [facility] Comment on above: Performed By: #### C BC #### [facility] [address] [place] [address] Dr. Baldev Moreau Erythrocyte distribution width (RBC) [Ratio] 12.6 % Normal 11.0-15.0 [facility] Comment on above: Performed By: #### C BC #### [facility] [address] [place] [address] Dr. Baldev Moreau Hematocrit (Bld) [Volume fraction] 37.5 % Normal 36.0-48.0 [facility] Comment on above: Performed By: #### C BC #### [facility] [address] [place] [address] Dr. Baldev Moreau Hemoglobin (Bld) [Mass/Vol] 12.5 g/dL Normal 12.0-16.0 [facility] Comment on above: Performed By: #### C BC #### [facility] [address] [place] [address] Dr. Baldev Moreau IG # 0.04 10e3/ul Critically high 0.00-0.03 [facility] Comment on above: Performed By: #### C BC #### [facility] [address] [place] [address] Dr. Baldev Moreau IG % 0.5 % Normal 0.0-0.5 [facility] Comment on above: Performed By: #### C BC #### [facility] [address] [place] [address] Dr. Baldev Moreau LYMPH # 1.5 103/ul Normal 1.2-3.8 [facility] Comment on above: Performed By: #### C BC #### [facility] [address] [place] [address] Dr. Baldev Moreau Lymphocytes/100 WBC (Bld) 18.8 % Critically low 20.5-60.0 [facility] Comment on above: Performed By: #### C BC #### [facility] [address] [place] [address] Dr. Baldev Moreau MANUAL DIFF REQ NO Normal [facility] Comment on above: Performed By: #### C BC #### [facility] [address] [place] [address] Dr. Baldev Moreau MCH (RBC) [Entitic mass] 30.0 pg Normal 26.7-34.0 [facility] Comment on above: Performed By: #### C BC #### [facility] [address] [place] [address] Dr. Baldev Moreau MCHC (RBC) [Mass/Vol] 33.3 g/dL Normal 29.9-35.2 [facility] Comment on above: Performed By: #### C BC #### [facility] [address] [place] [address] Dr. Baldev Moreau MCV (RBC) [Entitic vol] 90.1 fL Normal 81.0-99.0 [facility] Comment on above: Performed By: #### C BC #### [facility] [address] [place] [address] Dr. Baldev Moreau MONO # 0.7 103/ul Normal 0.3-0.8 [facility] Comment on above: Performed By: #### C BC #### [facility] [address] [place] [address] Dr. Baldev Moreau Monocytes/100 WBC (Bld) 9.1 % Normal 1.7-12.0 [facility] Comment on above: Performed By: #### C BC #### [facility] [address] [place] [address] Dr. Baldev Moreau NEUT # 5.2 103/ul Normal 1.4-6.5 [facility] Comment on above: Performed By: #### C BC #### [facility] [address] [place] [address] Dr. Baldev Moreau Neutrophils/100 WBC (Bld) 64.1 % Normal 43.0-75.0 [facility] Comment on above: Performed By: #### C BC #### [facility] [address] [place] [address] Dr. Baldev Moreau Platelet mean volume (Bld) [Entitic vol] 8.3 fL Critically low 9.5-13.5 [facility] Comment on above: Performed By: #### C BC #### [facility] [address] [place] [address] Dr. Baldev Moreau PLT 275 103/ul Normal 150-450 [facility] Comment on above: Performed By: #### C BC #### [facility] [address] [place] [address] Dr. Baldev Moreau RBC 4.16 106/ul Critically low 4.20-5.[address] [facility] Comment on above: Performed By: #### C BC #### [facility] [address] [address] [address] Baldev Moreau WBC 8.1 103/ul Normal 4.0-11.0 [facility] Comment on above: Performed By: #### C BC #### [facility] [address] [place] [address] Dr. Baldev Moreau CRPon 02-20-2023 CRP 0.8 mg/dL Normal <=1.0 [facility] Comment on above: Performed By: #### C RP, CK, CMADM, BMP #### [facility] [address] [place] [address] Dr. Baldev Moreau Covid-19 PCR (CVDTB)on 01-30 SARS-CoV-2 (COVID-19) RNA ART+probe Ql (Unsp spec) Not detected Normal NOT DETECTED [facility] Comment on above: Result Comment: This test is not yet approved or cleared by the [place] FDA. When there are no FDA-approved or cleared tests available, and other criteria are met, FDA can make tests available under an emergency access mechanism called an Emergency Use Authorization (EUA). The EUA for this test is supported by the Interactive Media Marketing Strategist of Health and Human Service's (HHS's) declaration [...] consistent with SARS-CoV-2. Performed By: #### C VDTBH #### [facility] [address] [place] [address] Dr. Baldev Moreau ER URINE PROFILEon 3 Bilirubin Ql (U) Negative Normal NEGATIVE [facility] Comment on above: Performed By: #### E RUR #### [facility] [address] [place] [address] Dr. Baldev Moreau Clarity (U) CLEAR Normal CLEAR [facility] Comment on above: Performed By: #### E RUR #### [facility] [address] [place] [address] Dr. Baldev Moreau Color (U) YELLOW Normal YELLOW [facility] Comment on above: Performed By: #### E RUR #### [facility] [address] [place] [address] Dr. Baldev AN A micrscopic examination will be performed if indicated. Normal [facility] Comment on above: Performed By: #### E RUR #### [facility] [address] [place] [address] Dr. Baldev Moreau Glucose Ql (U) Negative Normal NEGATIVE [facility] Comment on above: Performed By: #### E RUR #### [facility] [address] [place] [address] Dr. Baldev Moreau Hemoglobin Ql (U) Negative Normal NEGATIVE [facility] Comment on above: Performed By: #### E RUR #### [facility] [address] [place] [address] Dr. Baldev Moreau Ketones Ql (U) Negative Normal NEGATIVE [facility] Comment on above: Performed By: #### E RUR #### [facility] [address] [place] [address] Dr. Baldev Moreau LEUKOCYTES Negative Normal NEGATIVE [facility] Comment on above: Performed By: #### E RUR #### [facility] [address] [place] [address] Dr. Baldev Moreau Nitrite Ql (U) Negative Normal NEGATIVE [facility] Comment on above: Performed By: #### E RUR #### [facility] [address] [place] [address] Dr. Baldev Moreau pH (U) 5.5 [pH] Normal 5-9 [facility] Comment on above: Performed By: #### E RUR #### [facility] [address] [place] [address] Dr. Baldev Moreau SPEC GRAVITY >=1.030 Abnormal 1.005-<=1.02 5 [facility] Comment on above: Performed By: #### E RUR #### [facility] [address] [place] [address] Dr. Baldev Moreau UA PROTEIN Negative Normal NEGATIVE/ TRACE [facility] Comment on above: Performed By: #### E RUR #### [facility] [address] [place] [address] Dr. Baldev Moreau UR MICRO IND NOT INDICATED Normal [facility] Comment on above: Performed By: #### E RUR #### [facility] [address] [place] [address] Dr. Baldev Moreau Urobilinogen Qn (U) 0.2 {Edinson'U}/dL Normal 0.2 - 1. 0 [facility] Comment on above: Performed By: #### E RUR #### [facility] [address] [place] [address] Dr. Baldev Moreau GROUP A STREP CULTUREon 01-30 S. pyogenes Ag Ql (Unsp spec) Culture Observations: NEGATIVE FOR GROUP A STREPTOCOCCUS. Normal [facility] Comment on above: Performed By: #### G RASTCX, SSCRN #### [facility] [address] [place] [address] Dr. Baldev Moreau LACTATE/LACTIC ACIDon 2022 Lactate [Moles/Vol] 1.3 mmol/L Normal 0.4-2.0 [facility] Comment on above: Performed By: #### C RP, CK, CMADM, BMP #### [facility] [address] [place] [address] Dr. Baldev Moreau Lactate [Moles/Vol] 2.2 mmol/L Critically high 0.4-2.0 [facility] Comment on above: Performed By: #### C RP, CK, CMADM, BMP #### [facility] [address] [place] [address] Dr. Baldev Moreau PROF CHEM 8 (BAS METB)on Anion gap [Moles/Vol] 14.5 mmol/L Normal Th e [facility] Comment on above: Performed By: #### C RP, CK, CMADM, BMP #### [facility] [address] [place] [address] Dr. Baldev Moreau Calcium [Mass/Vol] 9.1 mg/dL Normal 8.5-10.1 [facility] Comment on above: Performed By: #### C RP, CK, CMADM, BMP #### [facility] [address] [place] [address] Dr. Baldev Moreau Chloride [Moles/Vol] 102 mmol/L Normal 98-107 [facility] Comment on above: Performed By: #### C RP, CK, CMADM, BMP #### [facility] [address] [place] [address] Dr. Baldev Moreau CO2 [Moles/Vol] 24.9 mmol/L Normal 21.0-32.0 [facility] Comment on above: Performed By: #### C RP, CK, CMADM, BMP #### [facility] [address] [place] [address] Dr. Baldev Moreau Creatinine [Mass/Vol] 0.77 mg/dL Normal 0.55-1.02 [facility] Comment on above: Performed By: #### C RP, CK, CMADM, BMP #### [facility] [address] [place] [address] Dr. Baldev Moreau EGFR-AF BURMESE >60 Normal >=60 [facility] Comment on above: Performed By: #### C RP, CK, CMADM, BMP #### [facility] [address] [place] [address] Dr. Baldev Moreau EGFR-NON AF BURMESE >60 Normal >=60 [facility] Comment on above: Performed By: #### C RP, CK, CMADM, BMP #### [facility] [address] [place] [address] Dr. Baldev Moreau Glucose [Mass/Vol] 98 mg/dL Normal 74-106 [facility] Comment on above: Performed By: #### C RP, CK, CMADM, BMP #### [facility] [address] [place] [address] Dr. Bladev Moreau Potassium [Moles/Vol] 3.4 mmol/L Critically low 3.5-5.1 [facility] Comment on above: Performed By: #### C RP, CK, CMADM, BMP #### [facility] [address] [place] [address] Dr. Baldev Moreau Sodium [Moles/Vol] 138 mmol/L Normal 136-145 [facility] Comment on above: Performed By: #### C RP, CK, CMADM, BMP #### [facility] [address] [place] [address] Dr. Baldev Moreau Urea nitrogen [Mass/Vol] 8.0 mg/dL Normal 7.0-18.0 [facility] Comment on above: Performed By: #### C RP, CK, CMADM, BMP #### [facility] [address] [place] [address] Dr. Baldev Moreau Urea nitrogen/Creatinine [Mass ratio] 10.4 mg/mg Normal [facility] Comment on above: Performed By: #### C RP, CK, CMADM, BMP #### [facility] [address] [place] [address] Dr. Baldev Moreau STREPT SCREENon 02-20-2023 STREP SCREEN A Negative Normal NEGATIVE [facility] Comment on above: Performed By: #### G RASTCX, SSCRN #### [facility] [address] [place] [address] Dr. Baldev Moreau SYMPTOMATIC COVID-19 ANTIGEN on 02-20-2023 EUA Statement SEE BELOW Normal [facility] Comment on above: Result Comment: This [...] #### C RP, CK, CMADM, BMP #### [facility] [address] [address] [address] Baldev Moreau SARS-CoV-2 (COVID-19) RNA ART+probe Ql (Unsp spec) Negative Normal NEGATIVE [facility] Comment on above: Performed By: #### C RP, CK, CMADM, BMP #### [facility] [address] [address] [address] Baldev Moreau XR ABD FLAT UP_PA [...] by: NAN VILLAGRAN Date: 2023-02-20 05:12 Normal [facility] BioFire Not Detectedon 11-18 BioFire Not Detected Not detected Normal Not Detecte [facility] Comment on above: Result Comment: This is a duplicate RP2.1 COVID (PCR) result to be used for statistical tracking purpose only. PERFORMED BY: [address] [address] PATHOLOGIST HUMAN DEVELOPMENT PROFESSOR ZORAN MARINO M.D. Performed By: #### R FARHAD PANEL UPP., BIOFIRECOVNOTDE #### [facility] [address] [place] [address] [facility] COVID-19 Detected/Not Detect edOrdered By: Jacki Baird on 11-18-2022 SARS-CoV-2 (COVID-19) RNA ART+non-probe Ql (Nph) Not detected Not Detecte [facility] Comment on above: This is a duplicate RP2.1 COVID (PCR) result to be used for statistical tracking purpose only. No Panel InformationOrdered By: Jacki Baird on 11-18-2022 Respiratory Panel (PCR) [facility] Respiratory (Upper) Panel, P CRon [...] COVID-19 Detected/Not Detected Not detected PERFORMED BY: [facility] [address] [place] [address] PATHOLOGIST HUMAN DEVELOPMENT PROFESSOR ZORAN MARINO M.D. Normal [facility] Comment on above: Performed By: #### R FARHAD PANEL UPP., BIOFIRECOVNOTDE #### [facility] [address] [place], [place] [id number] [facility] XR Shoulder Complete Right*o n 06-06-2022 XR [...] by SRIKANTH GONZALEZ on 06/06/2022 1411 Normal [facility] Varicella IgG Antibodyon Varicella IgG Antibody 1308 Immune >165 [facility] [employer] Other Varicella IgG Antibody 1308 Normal Immune >165 [facility] Comment on above: Result Comment: Nega tive <135 Equivocal 135 - 165 Positive >165 A positive result generally indicates exposure to the pathogen or administration of specific immunoglobulins, but it is not indication of active infection or stage of disease. Performed at: - [facility] [id number] Weatherization And Housing Inspector: Angel Lorenzana PhD, Phone: [phone] PERFORMED BY: [place] [address] PATHOLOGIST HUMAN DEVELOPMENT PROFESSOR ZORAN MARINO M.D. Performed By: #### V BIN #### [facility] , Complete Blood Count Auto Di ffon 05-20-2022 Basophils (Bld) [#/Vol] 0.0 10*3/uL Normal 0.0-0.2 [facility] Comment on above: Order Comment: Reaso n for Exam Ulcerative pancolitis with complication Result Comment: PERF ORMED BY: [place] [address] PATHOLOGIST HUMAN DEVELOPMENT PROFESSOR ZORAN MARINO M.D. Performed By: #### C BC, CMP #### [address] Basophils/100 WBC (Bld) 0.2 % Normal . [facility] Comment on above: Order Comment: Reaso n for Exam Ulcerative pancolitis with complication Performed By: #### C BC, CMP #### [facility] [address] [place] [address] [place] Eosinophils (Bld) [#/Vol] 0.2 10*3/uL Normal 0.0-0.45 [facility] Comment on above: Order Comment: Reaso n for Exam Ulcerative pancolitis with complication Performed By: #### C BC, CMP #### [facility] [address] [place] [address] [place] Eosinophils/100 WBC (Bld) 2.9 % Normal . [facility] Comment on above: Order Comment: Reaso n for Exam Ulcerative pancolitis with complication Performed By: #### C BC, CMP #### [address] Erythrocyte distribution width (RBC) [Ratio] 12.8 % Normal 11.9-15.3 [facility] Comment on above: Order Comment: Reaso n for Exam Ulcerative pancolitis with complication Performed By: #### C BC, CMP #### [address] Hematocrit (Bld) [Volume fraction] 39.3 % Normal 34.0-46.4 [facility] Comment on above: Order Comment: Reaso n for Exam Ulcerative pancolitis with complication Performed By: #### C BC, CMP #### [address] Hemoglobin (Bld) [Mass/Vol] 13.3 g/dL Normal 11.8-15.4 [facility] Comment on above: Order Comment: Reaso n for Exam Ulcerative pancolitis with complication Performed By: #### C BC, CMP #### [place] [address] [place] Lymphocytes (Bld) [#/Vol] 1.6 10*3/uL Normal 1.00-4.8 [facility] Comment on above: Order Comment: Reaso n for Exam Ulcerative pancolitis with complication Performed By: #### C BC, CMP #### [place] [address] [place] Lymphocytes/100 WBC (Bld) 20.3 % Normal . [facility] Comment on above: Order Comment: Reaso n for Exam Ulcerative pancolitis with complication Performed By: #### C BC, CMP #### [address] MCH (RBC) [Entitic mass] 30.5 pg Normal 24.7-34.3 [facility] Comment on above: Order Comment: Reaso n for Exam Ulcerative pancolitis with complication Performed By: #### C BC, CMP #### [address] MCV (RBC) [Entitic vol] 90.1 fL Normal 80-100 [facility] Comment on above: Order Comment: Reaso n for Exam Ulcerative pancolitis with complication Performed By: #### C BC, CMP #### [address] Mean Corpuscular HGB Conc 33.9 g/dL Normal 32.0-35.0 [facility] Comment on above: Order Comment: Reaso n for Exam Ulcerative pancolitis with complication Performed By: #### C BC, CMP #### [address] Monocytes (Bld) [#/Vol] 0.4 10*3/uL Normal 0.0-0.8 [facility] Comment on above: Order Comment: Reaso n for Exam Ulcerative pancolitis with complication Performed By: #### C BC, CMP #### [place] [address] [place] Monocytes/100 WBC (Bld) 4.9 % Normal . [facility] Comment on above: Order Comment: Reaso n for Exam Ulcerative pancolitis with complication Performed By: #### C BC, CMP #### [place] [address] [place] Neutrophils (Bld) [#/Vol] 5.6 10*3/uL Normal 1.8-7.7 [facility] Comment on above: Order Comment: Reaso n for Exam Ulcerative pancolitis with complication Performed By: #### C BC, CMP #### [address] [place] [address] [place] Neutrophils/100 WBC (Bld) 71.7 % Normal . [facility] Comment on above: Order Comment: Reaso n for Exam Ulcerative pancolitis with complication Performed By: #### C BC, CMP #### [facility] [address] [id number] [place] Nucleated RBC/100 WBC (Bld) [Ratio] 0.1 % Normal 0-0.5 [facility] Comment on above: Order Comment: Reaso n for Exam Ulcerative pancolitis with complication Performed By: #### C BC, CMP #### [facility] [address] [place] [address] [place] Platelet mean volume (Bld) [Entitic vol] 6.7 fL Normal 6.3-10.7 [facility] Comment on above: Order Comment: Reaso n for Exam Ulcerative pancolitis with complication Performed By: #### C BC, CMP #### [facility] [address] [place] [address] [place] Platelets (Bld) [#/Vol] 282 10*3/uL Normal 150-450 [facility] Other Comment on above: Order Comment: Reaso n for Exam Ulcerative pancolitis with complication Performed By: #### C BC, CMP #### [facility] [address] [place] [address] [place] RBC (Bld) [#/Vol] 4.36 10*6/uL Normal 3.60-5.00 [facility] Comment on above: Order Comment: Reaso n for Exam Ulcerative pancolitis with complication Performed By: #### C BC, CMP #### [facility] [address] [place] [address] [place] WBC (Bld) [#/Vol] 7.9 10*3/uL Normal 4.5-11.0 [facility] Comment on above: Order Comment: Reaso n for Exam Ulcerative pancolitis with complication Performed By: #### C BC, CMP #### [facility] [address] [id number] [place] Basophils (Bld) [#/Vol] 0.791217759 10*3/uL Normal 0.0-0.2 10*3/uL [facility] Other Basophils/100 WBC (Bld) 0.200 % . % [facility] Other Eosinophils (Bld) [#/Vol] 0.270988484 10*3/uL Normal 0.0-0.45 10*3/uL [facility] Other Eosinophils/100 WBC (Bld) 2.900 % . % [facility] Other Erythrocyte distribution width (RBC) [Ratio] 12.800 % Normal 11.9-15.3 % [facility] Other Hematocrit (Bld) [Volume fraction] 39.300 % Normal 34.0-46.4 % [facility] Other Hemoglobin (Bld) [Mass/Vol] 13.042281 g/dL Normal 11.8-15.4 g/dL [facility] Other Lymphocytes (Bld) [#/Vol] 1.154711285 10*3/uL Normal 1.00-4.8 10*3/uL [facility] Other Lymphocytes/100 WBC (Bld) 20.300 % . % [facility] Other MCH (RBC) [Entitic mass] 30.5000 pg Normal 24.7-34.3 pg [facility] Other MCV (RBC) [Entitic vol] 90.1000 fL Normal 80-100 fL [facility] Other Monocytes (Bld) [#/Vol] 0.595158738 10*3/uL Normal 0.0-0.8 10*3/uL [facility] Other Monocytes/100 WBC (Bld) 4.900 % . % [facility] Other Neutrophils (Bld) [#/Vol] 5.896594030 10*3/uL Normal 1.8-7.7 10*3/uL [facility] Other Neutrophils/100 WBC (Bld) 71.700 % . % [facility] Other Platelet mean volume (Bld) [Entitic vol] 6.7000 fL Normal 6.3-10.7 fL [facility] Other RBC (Bld) [#/Vol] 4.8486312920 10*6/uL Normal 3. 60-5.00 10*6/uL [facility] Other WBC (Bld) [#/Vol] 7.233845231 10*3/uL Normal 3.8 -11.6 10*3/uL [facility] Other Complete Blood Count Auto Diff 7.9 10*3/uL Normal 4.5-11.0 10*3/uL [facility] Other Complete Blood Count Auto Diff 33.9 g/dL Normal 32.0-35.0 g/dL [facility] Other Complete Blood Count Auto Diff 0.1 % Normal 0-0.5 % [facility] Other Comprehensive Metabolic Pane [facility] 05-20-2022 Albumin [Mass/Vol] 3.8 g/dL Normal 3.2-5.5 [facility] Comment on above: Order Comment: Reaso n for Exam Ulcerative pancolitis with complication Performed By: #### C BC, CMP #### [facility] [address] [place] [address] [place] Albumin/Globulin [Mass ratio] 1.3 {ratio} Normal [facility] Other Comment on above: Order Comment: Reaso n for Exam Ulcerative pancolitis with complication Performed By: #### C BC, CMP #### [facility] [address] [place] [address] [place] ALP [Catalytic activity/Vol] 47 U/L Normal 32-92 [facility] Other Comment on above: Order Comment: Reaso n for Exam Ulcerative pancolitis with complication Result Comment: PERF ORMED BY: [place] [address] PATHOLOGIST HUMAN DEVELOPMENT PROFESSOR ZORAN MARINO M.D. Performed By: #### C BC, CMP #### [facility] [address] [place] [address] [place] ALT [Catalytic activity/Vol] 16 U/L Normal 10-60 [facility] Other Comment on above: Order Comment: Reaso n for Exam Ulcerative pancolitis with complication Performed By: #### C BC, CMP #### [place] [address] [place] AST [Catalytic activity/Vol] 17 U/L Normal 10-42 [facility] Other Comment on above: Order Comment: Reaso n for Exam Ulcerative pancolitis with complication Performed By: #### C BC, CMP #### [place] [address] [place] Bilirubin [Mass/Vol] 0.6 mg/dL Normal 0.3-1.2 [facility] Comment on above: Order Comment: Reaso n for Exam Ulcerative pancolitis with complication Performed By: #### C BC, CMP #### [place] [address] [place] Calcium [Mass/Vol] 9.1 mg/dL Normal 8.2-10.2 [facility] Comment on above: Order Comment: Reaso n for Exam Ulcerative pancolitis with complication Performed By: #### C BC, CMP #### [facility] [address] [place] [address] [place] Chloride [Moles/Vol] 105 mmol/L Normal 95-114 [facility] [employer] Other Comment on above: Order Comment: Reaso n for Exam Ulcerative pancolitis with complication Performed By: #### C BC, CMP #### [place] [address] [place] CO2 [Moles/Vol] 24.1 mmol/L Normal 22.0-30.0 [facility] Comment on above: Order Comment: Reaso n for Exam Ulcerative pancolitis with complication Performed By: #### C BC, CMP #### [facility] [address] Creatinine [Mass/Vol] 0.90 mg/dL Normal 0.44-1.03 [facility] Comment on above: Order Comment: Reaso n for Exam Ulcerative pancolitis with complication Performed By: #### C BC, CMP #### [facility] [address] Estimated GFR ( Nisa > 60 [facility] Comment on above: Order Comment: Reaso n for Exam Ulcerative pancolitis with complication Result Comment: GFR estimated reference range: According to KDOQI guidelines, <60 ml/min/1.73m2 is sufficient to diagnose a patient with chronic kidney disease. Performed By: #### C BC, CMP #### [address] Estimated GFR (Non- Am > 60 [facility] Comment on above: Order Comment: Reaso n for Exam Ulcerative pancolitis with complication Performed By: #### C BC, CMP #### [address] Globulin (S) [Mass/Vol] 2.9 g/dL [facility] Comment on above: Order Comment: Reaso n for Exam Ulcerative pancolitis with complication Performed By: #### C BC, CMP #### [address] Glucose [Mass/Vol] 107 mg/dL High 70-100 [facility] Other Comment on above: Order Comment: Reaso n for Exam Ulcerative pancolitis with complication Result Comment: [place] Glucose Reference Range is dependent on time and content of last meal. Glucose of more than 200 mg/dL in a nonstressed, ambulatory subject supports the diagnosis of Diabetes Mellitus. ADA recommended reference range Performed By: #### C BC, CMP #### [address] Potassium [Moles/Vol] 3.7 mmol/L Normal 3.5-5.1 [facility] Comment on above: Order Comment: Reaso n for Exam Ulcerative pancolitis with complication Performed By: #### C BC, CMP #### [facility] [address] [phone] [place] Protein [Mass/Vol] 6.7 g/dL Normal 6.1-7.9 [facility] Comment on above: Order Comment: Reaso n for Exam Ulcerative pancolitis with complication Performed By: #### C BC, CMP #### [facility] [address] [phone] [place] Sodium [Moles/Vol] 138 mmol/L Normal 136-146 [facility] Other Comment on above: Order Comment: Reaso n for Exam Ulcerative pancolitis with complication Performed By: #### C BC, CMP #### [facility] [address] [place] [address] [place] Urea nitrogen [Mass/Vol] 10 mg/dL Normal 9-23 [facility] Other Comment on above: Order Comment: Reaso n for Exam Ulcerative pancolitis with complication Performed By: #### C BC, CMP #### [facility] [address] [phone] [place] Albumin [Mass/Vol] 3.436993 g/dL Normal 3.2-5.5 g/dL [employer] Other Bilirubin [Mass/Vol] 0.6772654 mg/dL Normal 0.3- 1.2 mg/dL [facility] Other Calcium [Mass/Vol] 9.2224195 mg/dL Normal 8.2-10 .2 mg/dL [facility] Other CO2 [Moles/Vol] 24.75301024 mmol/L Normal 22.0-3 0.0 mmol/L [facility] Other Creatinine [Mass/Vol] 0.80790428 mg/dL Normal 0. 44-1.03 mg/dL [facility] Other Potassium [Moles/Vol] 3.03305798 mmol/L Normal 3 .5-5.1 mmol/L [facility] [employer] Other Protein [Mass/Vol] 6.833008 g/dL Normal 6.1-7.9 g/dL N [facility] [employer] Other Comprehensive Metabolic Panel > 60 [facility] [employer] Other Comprehensive Metabolic Panel 2.9 g/dL [facility] [employer] Other ECG 12 lead ECGon 05-20-2022 ECG 12 lead ECG [facility] Main [address] [address] Electrocardiograph Report Signed Patient: Angela Elam MR#: [id number] : 1980 Acct:[id number] Age/Sex: 41 / F ADM Date: 05/20/22 Loc: Room: Type: [facility] Attending Dr: Bill Yusuf DO Ordering Provider: [...] By Daren Canales DO 05/20 1600 Normal [facility] ECG 12 lead ECG [facility] [employer] Other ECG 12 lead ECG [facility] Main [facility] [employer] Other ECG 12 lead ECG [address]111 [facility] [employer] Other ECG 12 [place] [address] N [facility] [employer] Other ECG 12 lead ECG Electrocardiograph Report [facility] Other ECG 12 lead ECG Signed [employer] Other ECG 12 lead ECG Patient: Angela Elam MR#: [id number] [place] [employer] Other ECG 12 lead ECG 1280 [employer] Other ECG 12 lead ECG : 1980 Acct:[id number] [facility] Other ECG 12 lead ECG Age/Sex: 41 / F ADM Date: 05/20/22 [facility] Other ECG 12 lead ECG Loc: Room: Type: [facility] Other ECG [address]: Bill Yusuf DO [facility] Other ECG 12 lead ECG Ordering Provider: Bill Yusuf Jr DO [facility] Other ECG 12 lead ECG Date of Service: 05/20/22 Neighborhoods Other ECG 12 lead ECG ECG/ECG 12 lead ECG: High risk medication use Neighborhoods Other ECG 12 lead ECG Copies to: [facility] Other ECG 12 lead ECG Test Reason : Neighborhoods Other ECG 12 lead ECG Blood Pressure : / mmHG Neighborhoods Other ECG 12 lead ECG Vent. Rate : 079 BPM Atrial Rate : 079 BPM Neighborhoods Other ECG 12 lead ECG P-R Int : 136 ms QRS Dur : 082 ms Neighborhoods Other ECG 12 lead ECG QT Int : 370 ms P-R- T Axes : 072 050 049 degrees Neighborhoods Other ECG 12 lead ECG QTc Int : 424 ms Nor [facility] Other ECG 12 lead ECG Normal sinus rhythm Neighborhoods Other ECG 12 lead ECG Normal ECG [facility] Other ECG 12 lead ECG When compared with E CG of 08-SEP-2021 18:59, Neighborhoods Other ECG 12 lead ECG Vent. rate has decreased BY 42 BPM Neighborhoods Other ECG 12 lead ECG Confirmed by DAREN CANALES DO ([id number]) on 05/20/2022 4:00:35 PM Neighborhoods Other ECG 12 lead ECG Referred By: Electronically Signed By:DAREN CANALES DO Neighborhoods Other ECG 12 lead ECG Transcribed By: IRINEO Neighborhoods Other ECG 12 lead ECG Signed By Daren Canales DO 05/20 Neighborhoods Other ECG 12 lead ECG /22 1600 [facility] Other Complete Blood Counton 04-18 Erythrocyte distribution width (RBC) [Ratio] 13.8 % Normal 11.0-15.0 [facility] [employer] Network Engineer Comment on above: Order Comment: [facility] Testing performed at: QPT, [facility], [address] [facility], [address] [place] [address], [phone], Acoustical Installer: Jame Sawyer MD [facility] Date/Time: [id number] [facility] Results Received Date/Time: [facility] Reported Date/Time: Performed By: #### C BC, TSH reflex FT4, LIPD, CMP #### [facility] [address] [place] [address] Hematocrit (Bld) [Volume fraction] 40.4 % Normal 35.0-45.0 [facility] Linux Network Engineer Comment on above: Order Comment: [facility] performed at: [employer], [employer] [facility], [address] [place] [address], [address] [place] [address], [address] [place] [address], Acoustical Installer: Jame Sawyer MD [facility] Date/Time: [facility] Results Received Date/Time: [facility] Reported Date/Time: Performed By: #### C BC, TSH reflex FT4, LIPD, CMP #### [facility] Default [address] [place] [address] Hemoglobin (Bld) [Mass/Vol] 13.4 g/dL Normal 11.7-15.5 [facility] Linux Network Engineer Comment on above: Order Comment: [facility] performed at: [employer], [employer] [facility], [address] [place] [address], [address] [place] [address], [address] [place] [address], Acoustical Installer: Jame Sawyer MD [facility] Date/Time: [facility] Results Received Date/Time: [facility] Reported Date/Time: Performed By: #### C BC, TSH reflex FT4, LIPD, CMP #### [facility] [address] [place] [address] MCH (RBC) [Entitic mass] 29.7 pg Normal 27.0-33.0 [facility] Linux Network Engineer Comment on above: Order Comment: [facility] performed at: [employer], [employer] [facility], [address] [place] [address], [address] [place] [address], [phone], Acoustical Installer: Jame Sawyer MD [facility] Date/Time: [facility] Results Received Date/Time: [facility] Reported Date/Time: Performed By: #### C BC, TSH reflex FT4, LIPD, CMP #### [facility] [address] [place] [address] MCHC (RBC) [Mass/Vol] 33.2 g/dL Normal 32.0-36.0 [facility] Comment on above: Order Comment: [facility] performed at: [employer], [employer] [facility], [address] [place] [address], [address] [place] [address], [phone], Acoustical Installer: Jame Sawyer MD [facility] Date/Time: [facility] Results Received Date/Time: [facility] Reported Date/Time: Performed By: #### C BC, TSH reflex FT4, LIPD, CMP #### [facility] Default [address] [place] [address] MCV (RBC) [Entitic vol] 89.6 fL Normal 80.0-100.0 [facility] Linux Network Engineer Comment on above: Order Comment: [facility] performed at: [employer], [employer] [facility], [address] [place] [address], [address] [place] [address], [address] [place] [address], Acoustical Installer: Jame Sawyer MD [facility] Date/Time: [facility] Results Received Date/Time: [facility] Reported Date/Time: Performed By: #### C BC, TSH reflex FT4, LIPD, CMP #### [facility] Default [address] [place] [address] Platelet mean volume (Bld) [Entitic vol] 9.0 fL Normal 7.5-12.5 [facility] Linux Network Engineer Comment on above: Order Comment: [facility] performed at: [employer], [employer] [facility], [address] [place] [address], [address] [place] [address], [address] [place] [address], Acoustical Installer: Jame Sawyer MD [facility] Date/Time: [facility] Results Received Date/Time: [facility] Reported Date/Time: Performed By: #### C BC, TSH reflex FT4, LIPD, CMP #### [facility] Default [address] [place] [address] Platelets (Bld) [#/Vol] 286 10*3/uL Normal 140-400 [facility] Linux Network Engineer Comment on above: Order Comment: [facility] performed at: [employer], [employer] [facility], [address] [place] [address], [address] [place] [address], [address] [place] [address], Acoustical Installer: Jame Sawyer MD [facility] Date/Time: [facility] Results Received Date/Time: [facility] Reported Date/Time: Performed By: #### C BC, TSH reflex FT4, LIPD, CMP #### [facility] [address] [place] [address] RBC (Bld) [#/Vol] 4.51 10*6/uL Normal 3.80-5.10 Clem gong [place] Linux Network Engineer Comment on above: Order Comment: [facility] Testing performed at: [employer], [employer] [facility], [address] [place] [address], [address] [place] [address], Acoustical Installer: Jame Sawyer MD [facility] Date/Time: [facility] Results Received Date/Time: [facility] Reported Date/Time: Performed By: #### C BC, TSH reflex FT4, LIPD, CMP #### [facility] [address] [place] [address] WBC (Bld) [#/Vol] 6.4 10*3/uL Normal 3.8-10.8 Eliu colorado [place] Linux Network Engineer Comment on above: Order Comment: [facility] performed at: [employer] [employer] [facility], [address] [place] [address], [address] [place] [address], [address] [place] [address], Acoustical Installer: Jame Sawyer MD [facility] Date/Time: [facility] Results Received Date/Time: [facility] Reported Date/Time: Performed By: #### C BC, TSH reflex FT4, LIPD, CMP #### [facility] Default [address] [place] [address] Comprehensive Metabolic Pane linda 04-18-2022 Albumin [Mass/Vol] 4.3 g/dL Normal 3.6-5.1 Eliu colorado [place] Linux Network Engineer Comment on above: Order Comment: [facility] performed at: [employer] [employer] [facility], [address] [place] [address], [address] [place] [address], [address] [place] [address], Acoustical Installer: Jame Sawyer MD [facility] Date/Time: [facility] Results Received Date/Time: [facility] Reported Date/Time: Performed By: #### C BC, TSH reflex FT4, LIPD, CMP #### [facility] [address] [place] [address] Albumin/Globulin [Mass ratio] 1.7 {ratio} Normal 1.0-2.5 [facility] Specialist Comment on above: Order Comment: [facility] Testing performed at: [employer] [employer] [facility], [address] [place] [address], [address] [place] [address], [address] [place] [address], Acoustical Installer: Jame Sawyer MD [facility] Date/Time: [facility] Results Received Date/Time: [facility] Reported Date/Time: Performed By: #### C BC, TSH reflex FT4, LIPD, CMP #### [facility] [address] [place] [address] ALP [Catalytic activity/Vol] 46 U/L Normal 31-125 [facility] Linux Network Engineer Comment on above: Order Comment: [facility] performed at: [employer] [employer] [facility], [address] [place] [address], [address] [place] [address], [address] [place] [address], Acoustical Installer: Jame Sawyer MD [facility] Date/Time: [facility] Results Received Date/Time: [facility] Reported Date/Time: Performed By: #### C BC, TSH reflex FT4, LIPD, CMP #### [facility] [address] [place] [address] ALT [Catalytic activity/Vol] 11 U/L Normal 6-29 [facility] Linux Network Engineer Comment on above: Order Comment: [facility] performed at: [employer] [employer] [facility], [address] [place] [address], [address] [place] [address], [address] [place] [address], Acoustical Installer: Jame Sawyer MD [facility] Date/Time: [facility] Results Received Date/Time: [facility] Reported Date/Time: Performed By: #### C BC, TSH reflex FT4, LIPD, CMP #### [facility] [address] [place] [address] Anion gap [Moles/Vol] 17 mmol/L Normal 12-20 [facility] Comment on above: Order Comment: [facility] performed at: [employer] [employer] [facility], [address] [place] [address], [address] [place] [address], [address] [place] [address], Acoustical Installer: Jame Sawyer MD [facility] Date/Time: [facility] Results Received Date/Time: [facility] Reported Date/Time: Result Comment: Effe ctive 12/06/2019 reference range changed. Performed By: #### C BC, TSH reflex FT4, LIPD, CMP #### [facility] Default [address] [place] [address] AST [Catalytic activity/Vol] 11 U/L Normal 10-30 [facility] Comment on above: Order Comment: [facility] performed at: [employer] [employer] [facility], [address] [place] [address], [address] [place] [address], [address] [place] [address], Acoustical Installer: Jame Sawyer MD [facility] Date/Time: [facility] Results Received Date/Time: [facility] Reported Date/Time: Performed By: #### C BC, TSH reflex FT4, LIPD, CMP #### [facility] Default [address] [place] [address] Bilirubin [Mass/Vol] 0.5 mg/dL Normal 0.2-1.2 [facility] Specialist Comment on above: Order Comment: [facility] performed at: [employer] [employer] [facility], [address] [place] [address], [address] [place] [address], [address] [place] [address], Acoustical Installer: Jame Sawyer MD [facility] Date/Time: [facility] Results Received Date/Time: [facility] Reported Date/Time: Performed By: #### C BC, TSH reflex FT4, LIPD, CMP #### [facility] Default [address] [place] [address] BUN/CREA 17 NOT APPLICABLE Normal 6-22 Coltonsteve harkins [place] Linux Network Engineer Comment on above: Order Comment: [facility] performed at: [employer] [employer] [facility], [address] [facility], [address] [place] [address], [address] [place] [address], Acoustical Installer: Jame Sawyer MD [facility] Date/Time: [facility] Results Received Date/Time: [facility] Reported Date/Time: Performed By: #### C BC, TSH reflex FT4, LIPD, CMP #### [facility] Default [address] [place] [address] Calcium [Mass/Vol] 9.1 mg/dL Normal 8.6-10.2 Coltonjustino [facility] Linux Network Engineer Comment on above: Order Comment: [facility] performed at: [employer] [employer] [facility], [address] [place] [address], [address] [place] [address], [address] [place] [address], Acoustical Installer: Jame Sawyer MD [facility] Date/Time: [facility] Results Received Date/Time: [facility] Reported Date/Time: Performed By: #### C BC, TSH reflex FT4, LIPD, CMP #### [facility] Default [address] [place] [address] Chloride [Moles/Vol] 104 mmol/L Normal 98-110 [facility] Linux Network Engineer Comment on above: Order Comment: [facility] Testing performed at: [employer] [employer] [facility], [address] [place] [address], [address] [place] [address], [address] [place] [address], Acoustical Installer: Jame Sawyer MD [facility] Date/Time: [facility] Results Received Date/Time: [facility] Reported Date/Time: Performed By: #### C BC, TSH reflex FT4, LIPD, CMP #### [facility] Default [address] [place] [address] CO2 [Moles/Vol] 22 mmol/L Normal 20-32 [facility] Specialist Comment on above: Order Comment: [facility] Testing performed at: [employer] [employer] [facility], [address] [place] [address], [address] [place] [address], [address] [place] [address], Acoustical Installer: Jame Sawyer MD [facility] Date/Time: [facility] Results Received Date/Time: [facility] Reported Date/Time: Performed By: #### C BC, TSH reflex FT4, LIPD, CMP #### [facility] Default [address] [place] [address] Creatinine [Mass/Vol] 0.75 mg/dL Normal 0.50-1.10 Nor [facility] Specialist Comment on above: Order Comment: [facility] Testing performed at: [employer] [employer] [facility], [address] [place] [address], [address] [place] [address], [address] [place] [address], Acoustical Installer: Jame Sawyer MD [facility] Collection Date/Time: [facility] Results Received Date/Time: [facility] Reported Date/Time: Performed By: #### C BC, TSH reflex FT4, LIPD, CMP #### [facility] Default [address] [place] [address] eGFRAA ([facility]) 115 mL/min/1.73m2 Normal > OR = 60 Nor [facility] Specialist Comment on above: Order Comment: [facility] performed at: [employer] [employer] [facility], [address] [place] [address], [address] [place] [address], [address] [place] [address], Acoustical Installer: Jame Sawyer MD [facility] Date/Time: [facility] Results Received Date/Time: [facility] Reported Date/Time: Performed By: #### C BC, TSH reflex FT4, LIPD, CMP #### [facility] Default [address] [place] [address] eGFRNAA ([facility]) 99 mL/min/1.73m2 Normal > OR = [address] [facility] Linux Network Engineer Comment on above: Order Comment: [facility] performed at: [employer] [employer] [facility], [address] [place] [address], [address] [place] [address], [phone], Acoustical Installer: Jame Sawyer MD [facility] Date/Time: [facility] Results Received Date/Time: [facility] Reported Date/Time: Performed By: #### C BC, TSH reflex FT4, LIPD, CMP #### [facility] Default [address] [place] [address] Globulin (S) [Mass/Vol] 2.5 g/dL Normal 1.9-3.7 [facility] Linux Network Engineer Comment on above: Order Comment: [facility] Testing performed at: [employer] [employer] [facility], [address] [place] [address], [address] [place] [address], [phone], Acoustical Installer: Jame Sawyer MD [facility] Date/Time: [facility] Results Received Date/Time: [facility] Reported Date/Time: Performed By: #### C BC, TSH reflex FT4, LIPD, CMP #### [facility] Default [address] [place] [address] Glucose [Mass/Vol] 85 mg/dL Normal 65-99 [facility] Linux Network Engineer Comment on above: Order Comment: [facility] performed at: [employer] [employer] [facility], [address] [place] [address], [address] [place] [address], [phone], Acoustical Installer: Jame Sawyer MD [facility] Date/Time: [facility] Results Received Date/Time: [facility] Reported Date/Time: Result Comment: Fasting reference interval Performed By: #### C BC, TSH reflex FT4, LIPD, CMP #### [facility] Default [address] [place] [address] Potassium [Moles/Vol] 4.1 mmol/L Normal 3.5-5.3 [facility] Linux Network Engineer Comment on above: Order Comment: [facility] performed at: [employer] [employer] [facility], [address] [place] [address], [address] [place] [address], [phone], Acoustical Installer: Jame Sawyer MD [facility] Date/Time: [facility] Results Received Date/Time: [facility] Reported Date/Time: Performed By: #### C BC, TSH reflex FT4, LIPD, CMP #### [facility] Default [address] [place] [address] Protein [Mass/Vol] 6.8 g/dL Normal 6.1-8.1 Eliu rn [place] Linux Network Engineer Comment on above: Order Comment: [facility] performed at: [employer] [employer] [facility], [address] [place] [address], [address] [place] [address], [address] [place] [address], Acoustical Installer: Jame Sawyer MD [facility] Date/Time: [facility] Results Received Date/Time: [facility] Reported Date/Time: Performed By: #### C BC, TSH reflex FT4, LIPD, CMP #### [facility] Default [address] [place] [address] Sodium [Moles/Vol] 139 mmol/L Normal 135-146 Eliu [facility] Linux Network Engineer Comment on above: Order Comment: [facility] performed at: [employer] [employer] [facility], [address] [place] [address], [address] [place] [address], [phone], Acoustical Installer: Jame Sawyer MD [facility] Date/Time: [facility] Results Received Date/Time: [facility] Reported Date/Time: Performed By: #### C BC, TSH reflex FT4, LIPD, CMP #### [facility] Default [address] [place] [address] Urea nitrogen [Mass/Vol] 13 mg/dL Normal 7-25 [facility] Linux Network Engineer Comment on above: Order Comment: [facility] performed at: [employer] [employer] [facility], [address] [facility], [address] [place] [address], [phone], Acoustical Installer: Jame Sawyer MD [facility] Date/Time: [facility] Results Received Date/Time: [facility] Reported Date/Time: Performed By: #### C BC, TSH reflex FT4, LIPD, CMP #### [facility] Default [address] [place] [address] Lipid Panelon 04-18-2022 Cholesterol [Mass/Vol] 204 mg/dL High <200 [facility] Linux Network Engineer Comment on above: Order Comment: [facility] performed at: [employer] [employer] [facility], [address] [place] [address], [address] [place] [address], [address] [place] [address], Acoustical Installer: Jame Sawyer MD [facility] Date/Time: [facility] Results Received Date/Time: [facility] Reported Date/Time: Performed By: #### C BC, TSH reflex FT4, LIPD, CMP #### [facility] Default [address] [place] [address] Cholesterol in HDL [Mass/Vol] 66 mg/dL Normal > OR = 50 [facility] Linux Network Engineer Comment on above: Order Comment: [facility] performed at: [employer] [employer] [facility], [address] [place] [address], [address] [place] [address], [address] [place] [address], Acoustical Installer: Jame Sawyer MD [facility] Date/Time: [facility] Results Received Date/Time: [facility] Reported Date/Time: Performed By: #### C BC, TSH reflex FT4, LIPD, CMP #### [facility] Default [address] [place] [address] Cholesterol in LDL [Mass/Vol] 115 mg/dL High [facility] Linux Network Engineer Comment on above: Order Comment: [facility] Testing performed at: [facility], [address] [place] [address], [address] [place] [address], [address] [place] [address], Acoustical Installer: Jame Sawyer MD [facility] Date/Time: [...] LDL-C. Berto SESAY et al. DEVONTE. 2013;310(19): 6547-8875 ([email or web address]) Performed By: #### C BC, TSH reflex FT4, LIPD, CMP #### [facility] Default [address] [place] [address] NON HDL CHOLESTEROL 138 mg/dL (calc) High <130 [facility] Linux Network Engineer Comment on above: Order Comment: [facility] Testing performed at: [facility], [address] [place] [address], [address] [place] [address], [phone], Acoustical Installer: Jame Sawyer MD [facility] Date/Time: [facility] Results Received Date/Time: [facility] Reported Date/Time: Result Comment: For patients with diabetes plus 1 major ASCVD risk factor, treating to a non-HDL-C goal of <100 mg/dL (LDL-C of <70 mg/dL) is considered a therapeutic option. Performed By: #### C BC, TSH reflex FT4, LIPD, CMP #### [facility] Default [address] [place] [address] Triglyceride [Mass/Vol] 123 mg/dL Normal <150 [facility] Linux Network Engineer Comment on above: Order Comment: [facility] Testing performed at: [facility], [address] [place] [address], [address] [place] [address], [phone], Acoustical Installer: Jame Sawyer MD [facility] Date/Time: [facility] Results Received Date/Time: [facility] Reported Date/Time: Performed By: #### C BC, TSH reflex FT4, LIPD, CMP #### [facility] Default [address] [place] [address] TSH w/ Reflex to Free T4on 0 04-18-2022 TSH W/REFLEX TO FT4 2.39 mIU/L Normal [facility] Linux Network Engineer Comment on above: Order Comment: [facility] performed at: [facility], [facility], [address], [address] [facility], [place], [address], Acoustical Installer: Jame Sawyer MD [facility] Date/Time: [id number] [facility] Results Received Date/Time: [facility] Reported Date/Time: Result Comment: Refe rence Range > or = 20 Years 0.40-4.50 Ranges First trimester 0.26-2.66 Second trimester 0.55-2.73 Third trimester 0.43-2.91 Performed By: #### C BC, TSH reflex FT4, LIPD, CMP #### [facility] Default [address] [place] [address] Complete Blood Count Auto Di ffon 09-20-2021 Basophils (Bld) [#/Vol] 0.0 10*3/uL 0.0-0.2 Neighborhoods Other Basophils/100 WBC (Bld) 0.3 % . Neighborhoods Other Eosinophils (Bld) [#/Vol] 0.4 10*3/uL 0.0-0.45 [facility]ighborhood[facility] Other Eosinophils/100 WBC (Bld) 6.4 % . Neighborhoods Other Erythrocyte distribution width (RBC) [Ratio] 17.6 % 11.9-15.3 Neighborhoods Other Hematocrit (Bld) [Volume fraction] 25.3 % 34.0-46.4 Neighborhoods Other Hemoglobin (Bld) [Mass/Vol] 7.6 g/dL 11.8-15.4 Neighborhoods Other Lymphocytes (Bld) [#/Vol] 1.9 10*3/uL 1.00-4.8 Neighborhoods Other Lymphocytes/100 WBC (Bld) 28.8 % . Neighborhoods Other MCH (RBC) [Entitic mass] 23.5 pg 24.7-34.3 Neighborhoods Other MCH (RBC) [Entitic mass] 30.0 pg 32.0-35.0 Neighborhoods Other MCV (RBC) [Entitic vol] 78.4 fL 80-100 Neighborhoods Other Monocytes (Bld) [#/Vol] 0.6 10*3/uL 0.0-0.8 Neighborhoods Other Monocytes/100 WBC (Bld) 9.7 % . Neighborhoods Other Neutrophils (Bld) [#/Vol] 3.6 10*3/uL 1.8-7.7 Neighborhoods Other Neutrophils/100 WBC (Bld) 54.8 % . Neighborhoods Other Platelet mean volume (Bld) [Entitic vol] 6.2 fL 6.3-10.7 Neighborhoods Other Platelets (Bld) [#/Vol] 504 10*3/uL 150-450 Neighborhoods Other RBC (Bld) [#/Vol] 3.22 10*6/uL 3.60-5.00 Neighborhoods Other WBC (Bld) [#/Vol] 6.5 10*3/uL 3.8-11.6 Neighborhoods Other Complete Blood Count Auto Diff 6.5 4.5-11.0 Neighborhoods Other Complete Blood Count Auto Diff 0.1 0-0.5 Neighborhoods Other Comprehensive Metabolic Pane linda 09-20-2021 Albumin [Mass/Vol] 2.8 g/dL 3.2-5.5 Neighborhoods Other Albumin/Globulin [Mass ratio] 0.8 {ratio} [facility] [place] [employer] Other ALP [Catalytic activity/Vol] 43 U/L 32-92 [facility] [place] [employer] Other ALT [Catalytic activity/Vol] 16 U/L 10-60 [facility] [place] [employer] Other AST [Catalytic activity/Vol] 16 U/L 10-42 [facility] [place] [employer] Other Bilirubin [Mass/Vol] 0.2 mg/dL 0.3-1.2 [facility] [employer] Other Calcium [Mass/Vol] 8.5 mg/dL 8.2-10.2 [facility] [place] [employer] Other Chloride [Moles/Vol] 106 mmol/L 95-114 [facility] [employer] Other CO2 [Moles/Vol] 23.6 mmol/L 22.0-30.0 [facility] [employer] Other Creatinine [Mass/Vol] 0.80 mg/dL 0.44-1.03 [facility] [employer] Other Glucose [Mass/Vol] 86 mg/dL 70-100 [facility] [place] [employer] Other Potassium [Moles/Vol] 3.7 mmol/L 3.5-5.1 [facility] [employer] Other Protein [Mass/Vol] 6.2 g/dL 6.1-7.9 [facility] [place] [employer] Other Sodium [Moles/Vol] 140 mmol/L 136-146 [facility] [place] [employer] Other Urea nitrogen [Mass/Vol] 9 mg/dL 9-23 [facility] [place] [employer] Other Comprehensive Metabolic Panel > 60 [facility] [place] [employer] Other Comprehensive Metabolic Panel 3.4 [facility] [place] [employer] Other Hepatitis B Core Antibodyon 10-21-2021 Hepatitis B Core Antibody Negative Negative Neighborhoods Other Vital Signs Date Time Vital Sign Value Performing Clinician Facility 03-04-2025 11:31-0400 Body mass index (BMI) [Ratio] 33.75 kg/m2 Mak Martinez MD Work Phone: [facility] 03-04-2025 11:31-0400 Body weight 92 kg Mak Martinez MD Work Phone: [facility] 03-04-2025 11:31-0400 Diastolic blood pressure 79 mm[Hg] Mak Martinez MD Work Phone: [facility] 03-04-2025 11:31-0400 Heart rate 98 /min Mak Martinez MD Work Phone: [facility] 03-04-2025 11:31-0400 Systolic blood pressure 118 mm[Hg] Mak Martinez MD Work Phone: [facility] 01-24-2025 16:25-0500 Body mass index (BMI) [Ratio] 34.32 kg/m2 Mathieu Esthela DO Work Phone: [facility] 01-24-2025 16:25-0500 Body weight 99.39 kg Mathieu Esthela DO Work Phone: [facility] 01-24-2025 16:25-0500 Diastolic blood pressure 82 mm[Hg] Mathieu Esthela DO Work Phone: [facility] 01-24-2025 16:25-0500 Systolic blood pressure 120 mm[Hg] Mathieu Esthela DO Work Phone: [facility] 01-07-2025 11:29-0500 Body height 170.2 cm Arlin ESCOBAR Work Phone: [facility] 01-07-2025 11:29-0500 Body mass index (BMI) [Ratio] 34.14 kg/m2 Arlin ESCOBAR Work Phone: [facility] 01-07-2025 11:29-0500 Body temperature 98.1 [degF] Arlin Hastings PA Work Phone: [facility] 01-07-2025 11:29-0500 Body weight 98.88 kg Arlin Hastings PA Work Phone: [facility] 01-07-2025 11:29-0500 Diastolic blood pressure 82 mm[Hg] Arlin Hastings PA Work Phone: [facility] 01-07-2025 11:29-0500 Heart rate 104 /min Arlin Hastings PA Work Phone: [facility] 01-07-2025 11:29-0500 SaO2% (BldA) [Mass fraction] 99 % Arlin Hastings PA Work Phone: [facility] 01-07-2025 11:29-0500 Systolic blood pressure 122 mm[Hg] Arlin Hastings PA Work Phone: [facility] 12-17-2024 11:35-0500 Diastolic blood pressure 86 mm[Hg] Mak Martinez MD Work Phone: [facility] 12-17-2024 11:35-0500 Heart rate 83 /min Mak Martinez MD Work Phone: [facility] 12-17-2024 11:35-0500 Respiratory rate 16 /min Mak Martinez MD Work Phone: [facility] 12-17-2024 11:35-0500 SaO2% (BldA) [Mass fraction] 100 % Mak Martinez MD Work Phone: [facility] 12-17-2024 11:35-0500 Systolic blood pressure 152 mm[Hg] Mak Martinez MD Work Phone: [facility] 12-17-2024 10:01-0500 Body height 165.1 cm Mak Martinez MD Work Phone: [facility] 12-17-2024 10:01-0500 Body mass index (BMI) [Ratio] 34.28 kg/m2 Mak Martinez MD Work Phone: [facility] 12-17-2024 10:01-0500 Body weight 93.44 kg Mak Martinez MD Work Phone: [facility] 11-05-2024 14:22-0500 Body temperature 97.7 [degF] Chair Moody Work Phone: [facility] 11-05-2024 14:22-0500 Diastolic blood pressure 70 mm[Hg] Chair Matthew Work Phone: [facility] 11-05-2024 14:22-0500 Heart rate 97 /min Chair Moody Work Phone: [facility] 11-05-2024 14:22-0500 Respiratory rate 16 /min Chair Moody Work Phone: [facility] 11-05-2024 14:22-0500 SaO2% (BldA) [Mass fraction] 99 % Chair Matthew Work Phone: [facility] 11-05-2024 14:22-0500 Systolic blood pressure 118 mm[Hg] Chair Moody Work Phone: [facility] 10-22-2024 16:05-0500 Body temperature 98.1 [degF] Chair Matthew Work Phone: [facility] 10-22-2024 16:05-0500 Diastolic blood pressure 89 mm[Hg] Chair Matthew Work Phone: [facility] 10-22-2024 16:05-0500 Heart rate 94 /min Chair Moody Work Phone: [facility] 10-22-2024 16:05-0500 Respiratory rate 18 /min Chair Moody Work Phone: [facility] 10-22-2024 16:05-0500 SaO2% (BldA) [Mass fraction] 95 % Chair Matthew Work Phone: [facility] 10-22-2024 16:05-0500 Systolic blood pressure 121 mm[Hg] Chair Matthew Work Phone: [facility] 10-11-2024 16:00-0500 Body temperature 97.59 [degF] Chair Moody Work Phone: [facility] 10-11-2024 16:00-0500 Diastolic blood pressure 83 mm[Hg] Chair Moody Work Phone: [facility] 10-11-2024 16:00-0500 Heart rate 98 /min Chair Moody Work Phone: [facility] 10-11-2024 16:00-0500 Respiratory rate 16 /min Chair Matthew Work Phone: [facility] 10-11-2024 16:00-0500 SaO2% (BldA) [Mass fraction] 98 % Chair Moody Work Phone: [facility] 10-11-2024 16:00-0500 Systolic blood pressure 121 mm[Hg] Chair Moody Work Phone: [facility] 10-05-2024 14:35-0500 Diastolic blood pressure 81 mm[Hg] Chair Matthew Work Phone: [facility] 10-05-2024 14:35-0500 Heart rate 95 /min Chair Moody Work Phone: [facility] 10-05-2024 14:35-0500 Respiratory rate 18 /min Chair Matthew Work Phone: [facility] 10-05-2024 14:35-0500 SaO2% (BldA) [Mass fraction] 98 % Chair Moody Work Phone: [facility] 10-05-2024 14:35-0500 Systolic blood pressure 116 mm[Hg] Chair Moody Work Phone: [facility] 10-01-2024 15:19-0400 Diastolic blood pressure 97 mm[Hg] Chair Moody Work Phone: [facility] 10-01-2024 15:19-0400 Heart rate 103 /min Chair Matthew Work Phone: [facility] 10-01-2024 15:19-0400 Respiratory rate 18 /min Chair Moody Work Phone: [facility] 10-01-2024 15:19-0400 SaO2% (BldA) [Mass fraction] 97 % Chair Matthew Work Phone: [facility] 10-01-2024 15:19-0400 Systolic blood pressure 141 mm[Hg] Chair Matthew Work Phone: [facility] 09-24-2024 15:40-0400 Body temperature 98.01 [degF] Chair Matthew Work Phone: [facility] 09-24-2024 15:40-0400 Diastolic blood pressure 76 mm[Hg] Chair Moody Work Phone: [facility] 09-24-2024 15:40-0400 Heart rate 101 /min Chair Moody Work Phone: [facility] 09-24-2024 15:40-0400 Respiratory rate 18 /min Chair Moody Work Phone: [facility] 09-24-2024 15:40-0400 SaO2% (BldA) [Mass fraction] 98 % Chair Matthew Work Phone: [facility] 09-24-2024 15:40-0400 Systolic blood pressure 119 mm[Hg] Chair Moody Work Phone: [facility] 09-17-2024 14:26-0400 Body height 167.6 cm Dilma Darrian PA-C Work Phone: [facility] 09-17-2024 14:26-0400 Body mass index (BMI) [Ratio] 33.61 kg/m2 Dilma Darrian PA-C Work Phone: [facility] 09-17-2024 14:26-0400 Body temperature 97.7 [degF] Dilma Darrian PA-C Work Phone: [facility] 09-17-2024 14:26-0400 Body weight 94.4 kg Dilma Darrian PA-C Work Phone: [facility] 09-17-2024 14:26-0400 Diastolic blood pressure 88 mm[Hg] Dilma Chairezer PA-C Work Phone: [facility] 09-17-2024 14:26-0400 Heart rate 114 /min Dilma Chairezer PA-C Work Phone: [facility] 09-17-2024 14:26-0400 Respiratory rate 16 /min Dilma Darrian PA-C Work Phone: [facility] 09-17-2024 14:26-0400 SaO2% (BldA) [Mass fraction] 99 % Dilma Chairezer PA-C Work Phone: [facility] 09-17-2024 14:26-0400 Systolic blood pressure 131 mm[Hg] Dilma Darrian PA-C Work Phone: [facility] 08-20-2024 13:04-0400 Body height 170.2 cm Beck Tee DO Work Phone: [facility] [email or web address] 08-20-2024 13:04-0400 Body mass index (BMI) [Ratio] 32.26 kg/m2 Beck Tee DO Work Phone: [facility] [email or web address] 08-20-2024 13:04-0400 Body temperature 98.29 [degF] Beck Tee DO Work Phone: [facility] [email or web address] 08-20-2024 13:04-0400 Body weight 93.44 kg Beck Tee DO Work Phone: [facility] [email or web address] 08-20-2024 13:04-0400 Diastolic blood pressure 74 mm[Hg] Beck Tee DO Work Phone: [facility] [email or web address] 08-20-2024 13:04-0400 Heart rate 105 /min Beck Tee DO Work Phone: [facility] 08-20-2024 13:04-0400 SaO2% (BldA) [Mass fraction] 97 % Beck Tee DO Work Phone: [facility] [email or web address] 08-20-2024 13:04-0400 Systolic blood pressure 128 mm[Hg] Beck Tee DO Work Phone: [facility] 04-24-2024 13:35-0400 Body height 167.64 cm [facility] 04-24-2024 13:35-0400 Body mass index (BMI) [Ratio] 33.3 kg/m2 [facility] 04-24-2024 13:35-0400 Body temperature 90.9 [degF] [facility] 04-24-2024 13:35-0400 Body weight 93.49 kg [facility] 04-24-2024 13:35-0400 Diastolic blood pressure 84 mm[Hg] [facility] 04-24-2024 13:35-0400 Heart rate 100 /min [facility] 04-24-2024 13:35-0400 Respiratory rate 16 /min [facility] 04-24-2024 13:35-0400 SaO2% (BldA) [Mass fraction] 98 % [facility] 04-24-2024 13:35-0400 Systolic blood pressure 124 mm[Hg] [facility] 01-08-2024 14:59-0500 Body height 167.6 cm Sonia Jc MD Work Phone: [facility] 01-08-2024 14:59-0500 Body weight 94 kg Sonia Jc MD Work Phone: [facility] 06-02-2023 14:50-0400 Body temperature 98.01 [degF] Chair Moody Work Phone: [facility] 06-02-2023 14:50-0400 Diastolic blood pressure 85 mm[Hg] Chair Moody Work Phone: [facility] 06-02-2023 14:50-0400 Heart rate 76 /min Chair Moody Work Phone: [facility] 06-02-2023 14:50-0400 Respiratory rate 16 /min Chair Moody Work Phone: [facility] 06-02-2023 14:50-0400 SaO2% (BldA) [Mass fraction] 97 % Chair Matthew Work Phone: [facility] 06-02-2023 14:50-0400 Systolic blood pressure 123 mm[Hg] Chair Moody Work Phone: [facility] 06-02-2023 14:15-0400 Body weight 95.39 kg Chair Moody Work Phone: [facility] 05-05-2023 14:07-0400 Body temperature 98.01 [degF] Chair Matthew Work Phone: [facility] 05-05-2023 14:07-0400 Body weight 94.6 kg Chair Matthew Work Phone: [facility] 05-05-2023 14:07-0400 Diastolic blood pressure 91 mm[Hg] Chair Matthew Work Phone: [facility] 05-05-2023 14:07-0400 Heart rate 93 /min Chair Matthew Work Phone: [facility] 05-05-2023 14:07-0400 Respiratory rate 16 /min Chair Moody Work Phone: [facility] 05-05-2023 14:07-0400 SaO2% (BldA) [Mass fraction] 98 % Chair Moody Work Phone: [facility] 05-05-2023 14:07-0400 Systolic blood pressure 144 mm[Hg] Chair Moody Work Phone: [facility] 04-07-2023 10:03-0400 Body height 167.6 cm Mak Martinez MD Work Phone: [facility] 04-07-2023 10:03-0400 Body weight 90.27 kg Mak Martinez MD Work Phone: [facility] 04-07-2023 10:03-0400 Diastolic blood pressure 72 mm[Hg] Mak Martinez MD Work Phone: [facility] 04-07-2023 10:03-0400 Heart rate 79 /min Mak Martinez MD Work Phone: [facility] 04-07-2023 10:03-0400 Respiratory rate 16 /min Mak Martinez MD Work Phone: [facility] 04-07-2023 10:03-0400 Systolic blood pressure 107 mm[Hg] Mak Martinez MD Work Phone: [facility] 09-25-2021 16:30-0400 Body height 167.64 cm Bill Yusuf Other Neighborhoods Other 09-25-2021 16:30-0400 Body mass index (BMI) [Ratio] 30.18 kg/m2 Bill Yusuf Other Neighborhoods Other 09-25-2021 16:30-0400 Body weight 84.82 kg Bill Yusuf Other Neighborhoods Other 09-11-2021 15:45-0400 Body height 167.64 cm Bill Yusuf Other Neighborhoods Other 09-11-2021 15:45-0400 Body mass index (BMI) [Ratio] 30.18 kg/m2 Bill Yusuf Other Neighborhoods Other 09-11-2021 15:45-0400 Body weight 84.82 kg Bill Yusuf Other Neighborhoods Other Encounters Encounter Date Encounter Type Care Provider Facility Start: 03-12-2025 ambulatory BECK TEE JR Facility:[facility] Start: 03-12-2025 End: 03-12-2025 Subsequent hospital visit by physician Brea [facility] ([facility]) Work Phone: [facility] Radiology CT Scan Comment on above: Crohn's disease of l arge intestine with complication (HCC) [K50.119] Start: 03-08-2025 End: 03-08-2025 ambulatory BECK TEE JR Facility:[facility] Start: 03-04-2025 End: 03-09-2025 Telephone encounter Mak Martinez MD Work Phone: Gastroenterology Start: 03-04-2025 End: 03-04-2025 ambulatory MAK MARTINEZ Facility:[facility] Start: 03-04-2025 End: 03-04-2025 Patient encounter procedure Mak Martinez MD Work Phone: Gastroenterology Comment on above: IBD (inflammatory mary wel disease) (Primary Dx); Constipation, unspecified constipation type; History of CMV; History of Clostridioides difficile infection Start: 02-28-2025 End: 02-28-2025 Refill Beck Tee DO Work Phone: [facility] 230 Comment on above: Anxiety Start: 02-22-2025 End: 02-22-2025 Specialty Pharmacy [facility] Comment on above: SPP Inflammatory Con ditions - Medication Refill (Skyrizi OBI) Start: 01-24-2025 End: 01-24-2025 Patient encounter procedure Mathieu Esthela DO Work Phone: [facility] Start: 01-24-2025 End: 01-24-2025 Periodic preventive med est patient 40-64yrs Mathieu Esthela DO Work Phone: [facility] Comment on above: Well woman exam with routine gynecological exam; Encounter for screening mammogram for malignant neoplasm of breast Start: 01-24-2025 End: 01-24-2025 ambulatory MATHIEU ESTHELA Not Available Start: 01-24-2025 End: 01-24-2025 Bamboo flowsheet Mathieu Esthela DO Work Phone: [facility] Start: 01-24-2025 End: 01-27-2025 Bamboo flowsheet Mathieu Esthela DO Work Phone: [facility] Start: 01-24-2025 End: 01-27-2025 Clinisync Result Encounter Generic External Data Provider [facility] External Department Unsolicited Start: 01-14-2025 End: 01-14-2025 Refill Beck Broussard Johnathanbob DO Work Phone: [...] Anxiety Start: 12-29-2024 End: 12-29-2024 Refill Beck Tee DO Work Phone: [facility] 230 Comment on above: Migraine without aur a and without status migrainosus, not intractable (CMS/HCC); Cervicalgia Start: 12-22-2024 End: 12-22-2024 ambulatory BECK TEE JR Facility:[facility] Start: 12-17-2024 End: 12-17-2024 ambulatory BECK TEE JR Facility:[facility] Start: 12-17-2024 End: 12-17-2024 Subsequent hospital visit [...] Refill Beck Tee DO Work Phone: [facility] 230 Comment on above: Anxiety Start: 12-10-2024 End: 12-10-2024 ambulatory BECK TEE Facility:[facility] Start: 12-06-2024 End: 12-13-2024 Telephone encounter Dilma Montes PA-C Work Phone: Hematology/Oncology Comment on above: Lab Orders Start: 12-03-2024 End: 12-06-2024 ambulatory Chair Brenda Castro Work Phone: Hematology/Oncology Comment on above: Ulcerative pancoliti s without complication (HCC) (Primary Dx); 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 care registered nurse (current) use of immunomodulator SkiriI Start: 11-16-2024 End: 11-16-2024 Refill Beck Tee DO Work Phone: [facility] 230 Comment on above: Anxiety Start: 11-12-2024 End: [...] Start: 11-04-2024 End: 11-04-2024 ambulatory BECK TEE Facility:[facility] Start: 11-03-2024 End: 11-03-2024 Telephone encounter Orlando Torres MD Work Phone: Infectious Disease Start: 11-02-2024 End: 11-04-2024 ambulatory Mak Martinez MD Work Phone: Gastroenterology Comment on above: TB test Start: 11-02-2024 End: 11-04-2024 E-mail encounter from caregiver Mak Martinez MD Work Phone: Gastroenterology Start: 11-01-2024 End: 11-01-2024 ambulatory BECK TEE JR Facility:[facility] Start: 10-29-2024 End: 11-01-2024 Refill Beck Tee DO Work Phone: [facility] 230 Comment on above: Anxiety Start: 10-22-2024 End: 10-24-2024 ambulatory Chair 19 Matthew Work Phone: Hematology/Oncology Comment on above: Iron deficiency anem ia due to chronic blood loss (Primary Dx); Ulcerative pancolitis without complication (HCC) Start: 10-20-2024 End: 10-20-2024 Refill Beck Tee DO Work Phone: [facility] 230 Comment on above: Anxiety Start: 10-11-2024 End: 10-11-2024 ambulatory Chair 19 Matthew Work Phone: Hematology/Oncology Comment on above: Iron deficiency anem ia due to chronic blood loss (Primary Dx); Ulcerative pancolitis without complication (HCC) Start: 10-09-2024 End: 10-09-2024 ambulatory BECK TEE JR Facility:[facility] Start: 10-08-2024 End: 10-08-2024 Refill Beck Tee DO Work Phone: [facility] [id number] Comment on above: Anxiety Start: 10-07-2024 End: 10-08-2024 ambulatory Mak Martinez MD Work Phone: Gastroenterology Comment on above: Severe leg and foot pain Start: 10-05-2024 End: 10-06-2024 ambulatory Chair 10 Matthew Work Phone: Hematology/Oncology Comment on above: Ulcerative pancoliti s without complication (HCC) (Primary Dx); Iron deficiency anemia due to chronic blood loss Start: 10-01-2024 End: 10-01-2024 ambulatory Chair 19 Moody Work Phone: Hematology/Oncology Comment on above: Iron deficiency anem ia due to chronic blood loss (Primary Dx); Ulcerative pancolitis without complication (HCC) Start: 10-01-2024 End: 10-21-2024 Telephone encounter Pascual Healy RN Hematology/Oncology Comment on above: Patient Update Follow Up; Results Start: 09-30-2024 End: 09-30-2024 Evaluation and management of inpatient DERIC RALPH Facility:[facility] Start: 09-29-2024 End: 10-01-2024 Evaluation and management of inpatient JOSE ARMANDO STERLING Facility:[facility] Start: 09-28-2024 End: 09-28-2024 ambulatory Mak [...] Only Mak Martinez MD Work Phone: Gastroenterology [facility] Comment on above: Ulcerative pancoliti s with complication (HCC) (Primary Dx) Start: 09-15-2024 End: 09-15-2024 Chart abstracting Dilma Montes PA-C Work Phone: Hematology/Oncology Comment on above: Anxiety Start: 09-13-2024 End: 09-13-2024 Telephone encounter Mak Martinez MD Work Phone: [facility] HB[facility] Comment on above: Insurance Authorizat ion (Peer to Peer , , VENITA MILLER, [id number] MAK AVENDAÑO ) Start: 09-10-2024 End: 09-10-2024 ambulatory Mak Martinez MD Work Phone: Gastroenterology Comment on above: Daniel Start: 09-06-2024 End: 09-06-2024 ambulatory [facility] Start: 09-06-2024 End: 09-09-2024 Orders Only Beck Tee DO Work Phone: [facility] External Department Unsolicited Start: 09-06-2024 End: 09-06-2024 Patient encounter procedure [facility] Comment on above: SPP Inflammatory Con ditions - Treatment Referral (Daniel CORREA); Insurance Authorization (PA submission pending) Start: 09-03-2024 End: 09-03-2024 Orders Only Mak Martinez MD Work Phone: Ambulatory Surgery Start: 09-01-2024 End: 09-17-2024 ambulatory Mak Martinez MD Work Phone: Gastroenterology Comment on above: Labs Start: 08-31-2024 End: 08-31-2024 Refill Corbin Piña LPN Work Phone: [facility] 230 Comment on above: Anxiety Start: 08-20-2024 End: 08-20-2024 Bamboo flowsheet Beck Tee DO Work Phone: [facility] Start: 08-20-2024 End: 08-20-2024 Bamboo flowsheet Beck R Kaftlibby DO Work Phone: [facility] 230 Start: 08-20-2024 End: 08-20-2024 ambulatory BECK TEE Not Available Start: 08-20-2024 End: 08-20-2024 Office outpatient visit 25 minutes Beck Tee DO Work Phone: [facility] 230 Comment on above: Anxiety (Primary Dx) ; Crohn's disease, unspecified, without complications (CMS/HCC); Other migraine without status migrainosus, not intractable (CMS/HCC); Iron deficiency anemia due to chronic blood loss; Current moderate episode of major depressive disorder without prior episode (HCC) (CMS/HCC); Frontal sinusitis, unspecified chronicity; Diarrhea of infectious origin Start: 08-03-2024 End: 08-03-2024 Refill Beck Tee DO Work Phone: [facility] Comment on above: Migraine without aur a and without status migrainosus, not intractable (CMS/HCC); Cervicalgia; Anxiety Start: 05-21-2024 End: 05-21-2024 ambulatory Mak Martinez MD Work Phone: Gastroenterology Comment on above: Ulcerative pancoliti s without complication (HCC) (Primary Dx); 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 care registered nurse current use of systemic steroids Start: 05-21-2024 End: 05-21-2024 Telemedicine consultation with patient Mak Martinez MD Work Phone: Gastroenterology Start: 05-20-2024 End: 05-20-2024 ambulatory BECK TEE JR Facility:[facility] Start: 04-24-2024 End: 04-24-2024 ambulatory [facility] Work Phone: Start: 04-24-2024 End: 04-24-2024 Patient encounter procedure [facility]k Work Phone: Start: 04-06-2024 Refill Mak Martinez MD Work Phone: Gastroenterology Comment on above: Refill Request; Foll ow Up Start: 03-22-2024 Orders Only Mak Martinez MD Work Phone: Gastroenterology [facility] Start: 03-10-2024 End: 03-10-2024 ambulatory BECK TEE Not Available Start: 02-09-2024 Refill Mak Martinez MD Work Phone: Gastroenterology Comment on above: Refill Request Start: 01-21-2024 E-mail encounter fro m caregiver [facility] Start: 01-21-2024 Follow-up encounter [facility] Provider Col orectal Surgery Comment on above: follow up Start: 01-08-2024 End: 01-08-2024 Patient encounter procedure Sonia Jc MD Work Phone: Colorectal Surgery Comment on above: Ulcerative colitis w ith complication, unspecified location (HCC) (Primary Dx) Start: 12-04-2023 Telephone encounter Mak amin MD Work Phone: Gastroenterology [facility] Comment on above: Results Start: 09-26-2023 End: 09-26-2023 ambulatory Chair 16 Matthew Work Phone: Hematology/Oncology Comment on above: Ulcerative pancoliti s with complication (HCC) (Primary Dx) Start: 06-02-2023 End: 06-02-2023 ambulatory Chair 13 Matthew Work Phone: Hematology/Oncology Comment on above: Ulcerative pancoliti s with complication (HCC) (Primary Dx) Start: 05-05-2023 End: 05-05-2023 ambulatory Chair 14 Matthew Work Phone: Hematology/Oncology Comment on above: [...] Start: 11-18-2022 End: 11-18-2022 ambulatory Vanna Tee Facility:[facility] Start: 11-18-2022 End: 11-18-2022 ambulatory DO Vanna Tee Work Phone: [facility] Work Phone: Start: 11-18-2022 End: 11-18-2022 Patient encounter procedure DO Vanna Tee Work Phone: [facility] Start: 07-31-2022 End: 07-31-2022 ambulatory Yared Pisano Other Neighborhoods Other Start: 07-31-2022 Telephone encounter Yared Wu [facility] Start: 07-29-2022 End: 07-29-2022 ambulatory Yared Pisano Other Neighborhoods Other Start: 07-29-2022 Telephone encounter Yared Wu [facility]enter[facility] Start: 06-18-2022 End: 06-18-2022 Patient encounter procedure Jaxon Guzmán MD Work Phone: Hematology/Oncology Comment on above: Appointment canceled by hospital (Primary Dx) Start: 06-18-2022 End: 06-18-2022 Telemedicine consultation with patient Jaxon Guzmán MD Work Phone: [place] Start: 06-18-2022 Telephone encounter Jaxon Guzmán MD Work Phone: [facility] Comment on above: Future Appointment Start: 06-12-2022 End: 06-12-2022 ambulatory Bill Yusuf Other Neighborhoods Other Start: 06-12-2022 Telephone encounter Bill PORTILLO Gastroenter[facility] Start: 06-07-2022 Orders Only Jaxon badillo MD Work Phone: Hematology/Oncology Comment on above: Iron deficiency anem ia due to chronic blood loss (Primary Dx) Start: 05-31-2022 End: 05-31-2022 ambulatory Bill Yusuf Other Neighborhoods Other Start: 05-31-2022 Telephone encounter Bill PORTILLO [facility]enter[facility] Start: 05-22-2022 End: 05-22-2022 ambulatory Bill Yusuf Facility:[facility] Start: 05-20-2022 End: 05-20-2022 ambulatory Vanna Tee Facility:[facility] Start: 05-07-2022 End: 05-07-2022 ambulatory Bill Steviebutch Other Neighborhoods Other Start: 05-07-2022 Telephone encounter Bill Yusuf [facility] Start: 03-27-2022 Telephone encounter Jaxon Guzmán MD Work Phone: Hematology/Oncology Comment on above: Lab Orders Start: 12-18-2021 Chart abstracting Jaxon langston MD Work Phone: Hematology/Oncology Start: 11-20-2021 End: 11-20-2021 ambulatory Bill Yusuf Other Neighborhoods Other Start: 11-20-2021 Telephone encounter Bill Yusuf [facility] Start: 11-12-2021 End: 11-12-2021 ambulatory Bill Yusuf Other Neighborhoods Other Start: 11-12-2021 Telephone encounter Bill Yusuf [facility] Start: 10-30-2021 End: 10-30-2021 ambulatory Bill Yusuf Other Neighborhoods Other Start: 10-30-2021 Telephone encounter Bill Yusuf [facility] Start: 09-28-2021 Telephone encounter Bill Yusuf [facility] Start: 09-27-2021 Telephone encounter Bill Yusuf [facility] Start: 09-26-2021 Telephone encounter Bill Hubbardkes [facility] Start: 09-25-2021 Office outpatient vi sit 25 minutes Bill Yusuf [facility] Start: 09-11-2021 End: 09-11-2021 ambulatory Bill Hubbardkes Other Neighborhoods Other Start: 09-11-2021 Office outpatient vi sit 25 minutes Bill Yusuf [facility] Start: 09-11-2021 Telephone encounter Bill Yusuf [facility] Procedures Date Procedure Procedure Detail Performing Clinician Start: 01-24-2025 IGP,APTIMA HPV,AGE GDLN Mathieu Esthela DO Work Phone: Start: 01-24-2025 Microscopic observat ion [Identifier] in Cervix by Cyto stain Beck Tee DO Work Phone: Start: 12-17-2024 Sigmoidoscopy flx dx w/collj spec br/wa if pfrmd Mak Martinez MD Work Phone: Start: 12-03-2024 Blood count complete automated Mak Martinez MD Work Phone: Start: 12-03-2024 Hepatic function panel Mak Martniez MD Work Phone: Start: 09-06-2024 Toxin/antitoxin assa y tissue culture Beck Tee DO Work Phone: Start: 01-19-2024 Microscopic observat ion [Identifier] in Cervix by Cyto stain Mathieu Esthela DO Work Phone: Start: 01-19-2024 Cytp cerv/vag auto t hin layer prep mnl screen Mathieu Proctor DO Work Phone: Start: 03-28-2022 Adult depression scr eening assessment Jaxon Guzmán MD Work Phone: Respiratory Panel (PCR) DO Bryce Tee Work Phone: Plan of Treatment Date Care Activity Detail Author Start: 01-19-2029 Screening for malignant neoplasm of cervix [facility] Start: 02-06-2026 End: 02-06-2026 Patient encounter procedure 02/06/2026 4:00 PM EDT Office Visit [facility] [address] [place] [address] Mathieu Proctor DO [address] [place] [address] [facility] Start: 01-24-2026 Screening for malignant neoplasm of cervix [facility] Start: 03-22-2025 End: 03-22-2025 Patient encounter procedure 03/22/2025 4:00 PM EDT Office Visit Colorectal Surgery [address] [place], [place] [phone] [place] [address] [place], [place] [phone] follow up from ct scan Colorectal Surgery Comment on above: follow up from ct scan Start: 03-12-2025 End: 03-12-2025 Patient encounter procedure [facility] Radiology CT Scan Comment on above: c Start: 03-08-2025 End: 03-08-2025 Specialty Pharmacy 03/08/2025 9:15 AM EDT Specialty Pharmacy [id number] [place] [address] Pharmacist, [facility] [address] [place] [address] Refill Skyrizi OBI (56D) - PAx 12/13/25 - ND 02/25-l/m 02/22, 01/28, 03/01 [facility] Comment on above: Refill Skyrizi OBI (56D) - PAx 12/13/25 - ND 02/25-l/m 02/22, 01/28, 03/01 Start: 03-04-2025 End: 06-03-2025 C reactive protein [Mass/volume] in Serum or Plasma C-REACTIVE PROTEIN Lab Routine IBD (inflammatory bowel disease) Expected: 03/04/2025, Expires: 06/03/2025 [facility] Comment on above: Expected: 03/04/2025, Expires: Start: 03-04-2025 End: 06-03-2025 CBC panel - Blood by Automated count COMPLETE BLOOD COUNT Lab Routine IBD (inflammatory bowel disease) Expected: 03/04/2025, Expires: 06/03/2025 [facility] Work Phone: Comment on above: Expected: 03/04/2025, Expires: Start: 03-04-2025 End: 06-03-2025 Comprehensive metabolic 2000 panel - Serum or Plasma COMPREHENSIVE METABOLIC PANEL Lab Routine IBD (inflammatory bowel disease) Expected: 03/04/2025, Expires: 06/03/2025 [facility] Comment on above: Expected: 03/04/2025, Expires: Start: 03-04-2025 End: 03-04-2025 Patient encounter procedure 03/04/2025 11:30 AM EDT Office Visit Gastroenterology [address] [place] [id number] [place] [address] [place] [id number] UC and CMV Colitis Gastroenterology Comment on above: UC and CMV Colitis Start: 02-25-2025 End: 02-25-2025 Specialty Pharmacy 02/25/2025 9:00 AM EDT Specialty Pharmacy [facility] [address] [place] [id number] [place] [address] Pharmacist, [facility] [address] [place] [address] Refill Skyrizi OBI (56D) - PAx 12/13/25 - ND 02/25-l/m 02/25 [facility] Comment on above: Refill Skyrizi OBI (56D) - PAx 12/13/25 - ND 02/25-l/m 02/25 Start: 02-18-2025 End: 02-18-2025 Patient encounter procedure 02/18/2025 11:20 AM EDT Office Visit [facility] [address] [place] [phone] Arlin Hastings PA [address] [place] [address] [facility] [address] Start: 01-24-2025 End: 01-24-2025 Patient encounter procedure [facility] Comment on above: Arrived Start: 01-24-2025 End: 03-24-2026 MG Breast - bilateral Screening Bilateral screening mammogram Imaging Routine Encounter for screening mammogram for malignant neoplasm of breast Expected: 01/24/2025 (Approximate), Expires: 03/24/2026 [facility] Work Phone: Comment on above: Expected: 01/24/2025 (Approximate), Expi res: 03/24/2026 Start: 12-31-2024 End: 12-31-2024 Patient encounter procedure 12/31/2024 2:40 PM EST Office Visit [facility] [address] [place] [address] Arlin Hastings PA [address] [place] [address] [facility] [address] Start: 12-22-2024 End: 12-22-2024 ambulatory 12/22/2024 4:00 PM EST Specialty Pharmacy [facility] [facility] [place], [place] [id number] Pharmacist, [facility] [address] [place] [address] [place] [address] delayed Skyrizi OBI - ND 12/31 [facility] Comment on above: delayed Skyrizi OBI - ND 12/31 Start: 12-17-2024 End: 12-17-2024 Patient encounter procedure Ambulatory Surgery Comment on above: SIGMOIDOSCOPY Start: 12-10-2024 End: 12-10-2024 Follow-up encounter 12/10/2024 3:00 PM EST Visit (SP) Office Hematology/Oncology [address] [place] [address] Dilma Montes, PA-C [address] [facility] [place] [address] 12 week follow up Hematology/Oncology Comment on above: 12 week follow up Start: 12-10-2024 End: 12-10-2024 Patient encounter procedure 12/10/2024 2:45 PM EST Office Visit [facility] [address] [facility] [place] [address] 12 week follow up [facility] Comment on above: 12 week follow up Start: 12-10-2024 End: 12-10-2024 ambulatory [facility] Comment on above: Resub PA for Skyrizi OBI to [facility] onc e new TB test is complete- first OBI should be due around 12/24/24 Resub PA for Skyrizi OBI to [facility]- first OBI should be due around 12/24/24 Start: 12-06-2024 End: 03-07-2025 CBC W Auto Differential panel - Blood COMPLETE BLOOD COUNT AND DIFFERENTIAL Lab Routine Iron deficiency anemia due to chronic blood loss Expected: 12/06/2024, Expires: 03/07/2025 [facility] Comment on above: Expected: 12/06/2024, Expires: Start: 12-06-2024 End: 03-07-2025 Comprehensive metabolic 2000 panel - Serum or Plasma COMPREHENSIVE METABOLIC PANEL Lab Routine Iron deficiency anemia due to chronic blood loss Expected: 12/06/2024, Expires: 03/07/2025 [facility] Work Phone: Comment on above: Expected: 12/06/2024, Expires: Start: 12-06-2024 End: 03-07-2025 Ferritin [Mass/volume] in Serum or Plasma FERRITIN Lab Routine Iron deficiency anemia due to chronic blood loss Expected: 12/06/2024, Expires: 03/07/2025 [facility] Comment on above: Expected: 12/06/2024, Expires: Start: 12-06-2024 End: 03-07-2025 Iron and Iron binding capacity panel - Serum or Plasma IRON AND TIBC Lab Routine Iron deficiency anemia due to chronic blood loss Expected: 12/06/2024, Expires: 03/07/2025 [facility] Comment on above: Expected: 12/06/2024, Expires: Start: 12-03-2024 End: 12-03-2024 ambulatory 12/03/2024 2:00 PM [facility] Hematology/Oncology [address] [place] [address] [place] [address] YRIZ Hematology/Oncology Comment on above: SKYRIZI Start: 11-26-2024 End: 11-26-2024 ambulatory 11/26/2024 2:00 PM EST Infusion Center Hematology/Oncology [address] [place] [address] [place] [address] DANIEL Hematology/Oncology Comment on above: DANIEL Start: 11-17-2024 End: 11-17-2024 Anesthesia consultation 11/17/2024 11:59 PM EST Anesthesia Event Ambulatory Surgery [address] [place] [phone] Josefina Seay APRN.[employer] [address] [place] [address] Ambulatory Surgery Start: 11-15-2024 End: 11-15-2024 Patient encounter procedure 11/15/2024 12:30 PM EST Office Visit Gastroenterology [facility] [address] [place] [address] [place] [address] [place] [phone] review medication Gastroenterology [facility] Comment on above: review medication Start: 11-12-2024 End: 11-12-2024 ambulatory 11/12/2024 10:30 AM EST [facility] Infectious Disease [address] [place] [phone] Orlando Torres MD [address] [place] [address] 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, 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] Infectious Disease Comment on above: 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, 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] Start: 11-12-2024 End: 11-12-2024 Patient encounter procedure 11/12/2024 10:30 AM EST Office Visit Infectious Disease [address] [place] [address] Orlando Torres MD [address] [place] [address] 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, 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] Infectious Disease Comment on above: 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, 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] Start: 11-09-2024 End: 11-09-2024 ambulatory 11/09/2024 9:00 AM EST Specialty [facility]acy [facility] [address] [place] [address] Pharmacist, [facility] [address] [place] [address] [place] [address] Resub PA for Skyrizi OBI to [facility] once new TB test is complete- first OBI should be due around 12/24/24 [facility] Comment on above: Resub PA for Skyrizi OBI to [facility] onc e new TB test is complete- first OBI should be due around 12/24/24 Start: 11-05-2024 End: 11-05-2024 ambulatory 11/05/2024 2:00 PM [facility] Hematology/Oncology [address] [address] SKYRIZ Hematology/Oncology Comment on above: SKYRIZI Start: 11-04-2024 End: 11-04-2024 Patient encounter procedure 11/04/2024 3:45 PM EST Office Visit [facility] [address] [address] lab [facility] Comment on above: lab Start: 11-04-2024 End: 11-04-2024 ambulatory 11/04/2024 9:30 AM EST [facility]ty [facility]acy [facility] [address] [place] [address] Pharmacist, [facility] [address] [place] [address] [place] [address] Resub PA for Skyrizi OBI to [facility] once new TB test is complete- first OBI should be due around 12/24/24 [facility] Comment on above: Resub PA for Skyrizi OBI to [facility] onc e new TB test is complete- first OBI should be due around 12/24/24 Start: 11-02-2024 End: 02-01-2025 BLOOD TB SCREEN BLOOD TB SCREEN Lab Routine Ulcerative pancolitis with complication (HCC) Expected: 11/02/2024, Expires: 02/01/2025 [facility] Work Phone: Comment on above: Expected: 11/02/2024, Expires: Start: 11-01-2024 End: 11-01-2024 ambulatory 11/01/2024 9:30 AM EST Specialty Pharmacy [facility] [employer] [id number] [place] [address] Pharmacist, [facility] 2 [facility] [place] [address] Skyrizi-has plan is patient will be getting [...] 2:00 PM EST Infusion Center Hematology/Oncology [address] [place] [address] SKYRIZI Hematology/Oncology Comment on above: SKYRIZI Start: 10-22-2024 End: 10-22-2024 ambulatory 10/22/2024 3:30 PM EST Infusion Center Hematology/Oncology [address] [facility] [place] [address] IV VENOFER PUSH 200 mg Hematology/Oncology Comment on above: IV VENOFER PUSH 200 mg Start: 10-15-2024 End: 10-15-2024 ambulatory 10/15/2024 3:30 PM EST Infusion Center Hematology/Oncology [address] [facility] [place] [address] IV VENOFER PUSH 200 mg Hematology/Oncology Comment on above: IV VENOFER PUSH 200 mg Start: 10-14-2024 End: 10-14-2024 ambulatory 10/14/2024 9:00 AM EST Specialty Pharmacy [facility] [address] [employer] [id number] [place] [address] Pharmacist, [facility] [address] [place] [address] [place] [address] Skyrizi-has pt startd induction dosing? no, as of 09/16 [facility] Comment on above: Skyrizi-has pt startd induction dosing? no, as of 09/16 Start: 10-08-2024 End: 10-08-2024 ambulatory 10/08/2024 3:30 PM [facility] Infusion Center Hematology/Oncology [address] [facility] [facility] [place] [address] IV VENOFER PUSH 200 mg Hematology/Oncology Comment on above: IV VENOFER PUSH 200 mg Start: 10-05-2024 End: 10-05-2024 ambulatory 10/05/2024 2:00 PM [facility] Infusion Center Hematology/Oncology [address] [place] [address] [place] [address] SKYRIZI + VENOFER Hematology/Oncology Comment on above: SKYRIZI + VENOFER Start: 10-01-2024 End: 10-01-2024 ambulatory Hematology/Oncology Comment on above: IV VENOFER PUSH 200 mg IV VENOFER PUSH 200 mg +SKYRIZI Start: 09-28-2024 End: 12-28-2024 C reactive protein [Mass/volume] in Serum or Plasma C-REACTIVE PROTEIN Lab Routine Ulcerative pancolitis (HCC) Expected: 09/28/2024, Expires: 12/28/2024 [facility] Comment on above: Expected: 09/28/2024, Expires: Start: 09-28-2024 End: 12-28-2024 Calprotectin [Mass/mass] in Stool CALPROTECTIN,FECAL Lab Routine Ulcerative pancolitis (HCC) Expected: 09/28/2024, Expires: 12/28/2024 [facility] Comment on above: Expected: 09/28/2024, Expires: Start: 09-28-2024 End: 12-28-2024 CBC panel - Blood by Automated count COMPLETE BLOOD COUNT Lab Routine Ulcerative pancolitis (HCC) Expected: 09/28/2024, Expires: 12/28/2024 [facility] Work Phone: Comment on above: Expected: 09/28/2024, Expires: Start: 09-28-2024 End: 12-28-2024 Clostridioides difficile toxin genes [Presence] in Stool by ART with probe detection C. DIFFICILE PCR Lab Routine Ulcerative pancolitis (HCC) Expected: 09/28/2024, Expires: 12/28/2024 [facility] Comment on above: Expected: 09/28/2024, Expires: Start: 09-28-2024 End: 12-28-2024 Comprehensive metabolic 2000 panel - Serum or Plasma COMPREHENSIVE METABOLIC PANEL Lab Routine Ulcerative pancolitis (HCC) Expected: 09/28/2024, Expires: 12/28/2024 [facility] Comment on above: Expected: 09/28/2024, Expires: Start: 09-24-2024 End: 09-24-2024 ambulatory 09/24/2024 3:30 PM EDT Infusion Center Hematology/Oncology [address] [facility] [facility] [facility] [address] [place], [place] [id number] IV VENOFER PUSH 200 mg Hematology/Oncology Comment on above: IV VENOFER PUSH 200 mg Start: 09-17-2024 End: 09-17-2024 Patient encounter procedure 09/17/2024 2:30 PM EDT Visit (SP) Office Hematology/Oncology [address] [place] [address] [place] [address] Dilma Montes, PA-C [address] [place] [address] [place] [address] Tee Hematology/Oncology Comment on above: New Referral by Dr. Tee Start: 09-17-2024 End: 12-17-2024 Cobalamin (Vitamin B12) [Mass/volume] in Serum or Plasma [facility] Comment on above: Expected: 09/17/2024, Expires: Start: 09-17-2024 End: 12-17-2024 Erythropoietin (EPO) [Units/volume] in Serum or Plasma [facility] Comment on above: Expected: 09/17/2024, Expires: Start: 09-17-2024 End: 12-17-2024 Ferritin [Mass/volume] in Serum or Plasma [facility] Comment on above: Expected: 09/17/2024, Expires: Start: 09-17-2024 End: 12-17-2024 Folate [Mass/volume] in Serum or Plasma [facility] Comment on above: Expected: 09/17/2024, Expires: Start: 09-17-2024 End: 12-17-2024 Haptoglobin [Mass/volume] in Serum or Plasma [facility] Comment on above: Expected: 09/17/2024, Expires: Start: 09-17-2024 End: 12-17-2024 Iron and Iron binding capacity panel - Serum or Plasma [facility] Work Phone: Comment on above: Expected: 09/17/2024, Expires: Start: 09-17-2024 End: 12-17-2024 MONOCLONAL PROTEIN, SERUM (BLOOD) [facility] Comment on above: Expected: 09/17/2024, Expires: Start: 09-17-2024 End: 12-17-2024 PROTEIN ELECTROPHORESIS SERUM W/INTERP [facility] Comment on above: Expected: 09/17/2024, Expires: Start: 09-17-2024 End: 12-17-2024 Thyrotropin [Units/volume] in Serum or Plasma [facility] Comment on above: Expected: 09/17/2024, Expires: Start: 09-16-2024 End: 09-16-2024 ambulatory 09/16/2024 9:00 AM EDT Specialty Pharmacy [facility] [address] [facility] [id number] [place] [address] Pharmacist, [facility] [address] [place] [address] [place] [address] Skyrizi-has pt startd induction dosing? no, as [...] infectious origin Expected: 08/20/2024 (Approximate), Expires: 08/20/2025 [facility] Comment on above: Expected: 08/20/2024 (Approximate), Expi res: 08/20/2025 Start: 08-20-2024 End: 08-20-2025 Clostridioides difficile toxin A+B tcdA+tcdB genes [Presence] in Stool by ART with probe detection [facility] Work Phone: Comment on above: Expected: 08/20/2024 (Approximate), Expi res: 08/20/2025 Start: 08-20-2024 End: 08-20-2025 Cobalamin (Vitamin B12) [Mass/volume] in Serum or Plasma Vitamin B12 Lab Routine Iron deficiency anemia due to chronic blood loss Expected: 08/20/2024 (Approximate), Expires: 08/20/2025 [facility] Comment on above: Expected: 08/20/2024 (Approximate), Expi res: 08/20/2025 Start: 08-20-2024 End: 08-20-2025 Comprehensive metabolic 2000 panel - Serum or Plasma Comprehensive metabolic panel Lab Routine Crohn's disease, unspecified, without complications (CMS/HCC) Anxiety Other migraine without status migrainosus, not intractable (CMS/HCC) Iron deficiency anemia due to chronic blood loss Diarrhea of infectious origin Expected: 08/20/2024 (Approximate), Expires: 08/20/2025 [facility] Comment on above: Expected: 08/20/2024 (Approximate), Expi res: 08/20/2025 Start: 08-20-2024 End: 08-20-2025 Ferritin [Mass/volume] in Serum or Plasma Ferritin Lab Routine Iron deficiency anemia due to chronic blood loss Expected: 08/20/2024 (Approximate), Expires: 08/20/2025 [facility] Comment on above: Expected: 08/20/2024 (Approximate), Expi res: 08/20/2025 Start: 08-20-2024 End: 08-20-2025 Folate [Mass/volume] in Serum or Plasma Folate Lab Routine Iron deficiency anemia due to chronic blood loss Expected: 08/20/2024 (Approximate), Expires: 08/20/2025 [facility] Comment on above: Expected: 08/20/2024 (Approximate), Expi res: 08/20/2025 Start: 08-20-2024 End: 08-20-2025 Iron and Iron binding capacity panel - Serum or Plasma Iron and TIBC Lab Routine Iron deficiency anemia due to chronic blood loss Expected: 08/20/2024 (Approximate), Expires: 08/20/2025 [facility] Comment on above: Expected: 08/20/2024 (Approximate), Expi res: 08/20/2025 Start: 08-01-2024 Covid-19 Vaccine () Covid-19 Vaccine () [facility] Start: 08-01-2024 Influenza vaccination [facility] Start: 05-21-2024 End: 08-20-2024 25-hydroxyvitamin D3 [Mass/volume] in Serum or Plasma VITAMIN D 25 HYDROXY Lab Routine Ulcerative pancolitis without complication (HCC) Expected: 05/21/2024, Expires: 08/20/2024 [facility] Comment on above: Expected: 05/21/2024, Expires: Start: 05-21-2024 End: 08-20-2024 BLOOD TB SCREEN BLOOD TB SCREEN Lab Routine Ulcerative pancolitis without complication (HCC) Expected: 05/21/2024, Expires: 08/20/2024 [facility] Comment on above: Expected: 05/21/2024, Expires: Start: 05-21-2024 End: 08-20-2024 C reactive protein [Mass/volume] in Serum or Plasma C-REACTIVE PROTEIN Lab Routine Ulcerative pancolitis without complication (HCC) Expected: 05/21/2024, Expires: 08/20/2024 [facility] Comment on above: Expected: 05/21/2024, Expires: Start: 05-21-2024 End: 08-20-2024 CBC panel - Blood by Automated count COMPLETE BLOOD COUNT Lab Routine Ulcerative pancolitis without complication (HCC) Expected: 05/21/2024, Expires: 08/20/2024 [facility] Work Phone: Comment on above: Expected: 05/21/2024, Expires: Start: 05-21-2024 End: 08-20-2024 Cobalamin (Vitamin B12) [Mass/volume] in Serum or Plasma VITAMIN B12 Lab Routine Ulcerative pancolitis without complication (HCC) Expected: 05/21/2024, Expires: 08/20/2024 [facility] Comment on above: Expected: 05/21/2024, Expires: Start: 05-21-2024 End: 08-20-2024 Comprehensive metabolic 2000 panel - Serum or Plasma COMPREHENSIVE METABOLIC PANEL Lab Routine Ulcerative pancolitis without complication (HCC) Expected: 05/21/2024, Expires: 08/20/2024 [facility] Comment on above: Expected: 05/21/2024, Expires: Start: 05-21-2024 End: 08-20-2024 Ferritin [Mass/volume] in Serum or Plasma FERRITIN Lab Routine Ulcerative pancolitis without complication (HCC) Expected: 05/21/2024, Expires: 08/20/2024 [facility] Comment on above: Expected: 05/21/2024, Expires: Start: 05-21-2024 End: 08-20-2024 Hepatitis B virus core Ab [Presence] in Serum HEPATITIS B CORE ANTIBODY TOTAL Lab Routine Ulcerative pancolitis without complication (HCC) Expected: 05/21/2024, Expires: 08/20/2024 [facility] Comment on above: Expected: 05/21/2024, Expires: Start: 05-21-2024 End: 08-20-2024 Iron and Iron binding capacity panel - Serum or Plasma IRON AND TIBC Lab Routine Ulcerative pancolitis without complication (HCC) Expected: 05/21/2024, Expires: 08/20/2024 [facility] Comment on above: Expected: 05/21/2024, Expires: Start: 01-26-2024 End: 04-26-2024 CBC W Auto Differential panel - Blood CBC + DIFF Lab Routine Ulcerative colitis with complication, unspecified location (HCC) Expected: 01/26/2024, Expires: 04/26/2024 [facility] Work Phone: Comment on above: Expected: 01/26/2024, Expires: Start: 01-26-2024 End: 04-26-2024 Comprehensive metabolic 2000 panel - Serum or Plasma COMP METABOLIC PANEL Lab Routine Ulcerative colitis with complication, unspecified location (HCC) Expected: 01/26/2024, Expires: 04/26/2024 [facility] Work Phone: Comment on above: Expected: 01/26/2024, Expires: Start: 01-26-2024 End: 04-26-2024 TYPE AND SCREEN,30 DAY TYPE AND SCREEN,30 DAY Blood Bank Routine Ulcerative colitis with complication, unspecified location (HCC) Expected: 01/26/2024, Expires: 04/26/2024 [facility] Work Phone: Comment on above: Expected: 01/26/2024, Expires: Start: 12-01-2023 Behavioral Health Screening Behavioral Health Screening [facility] Start: 12-01-2023 Depression Assessment Depression Assessment [facility] Start: 08-01-2023 Influenza vaccination [facility] Start: 03-28-2023 Adult depression screening assessment DEPRESSION SCREENING [facility] Start: 12-01-2022 DEPRESSION ASSESSMENT DEPRESSION ASSESSMENT [facility] Start: 08-01-2022 Influenza vaccination [facility] Start: 06-07-2022 End: 08-07-2022 CBC W Auto Differential panel - Blood CBC + DIFF Lab Routine Iron deficiency anemia due to chronic blood loss Expected: 06/07/2022, Expires: 08/07/2022 [facility] Work Phone: Comment on above: Expected: 06/07/2022, Expires: Start: 06-07-2022 End: 08-07-2022 Ferritin [Mass/volume] in Serum or Plasma FERRITIN BLD Lab Routine Iron deficiency anemia due to chronic blood loss Expected: 06/07/2022, Expires: 08/07/2022 [facility] Work Phone: Comment on above: Expected: 06/07/2022, Expires: 2 Start: 06-07-2022 End: 08-07-2022 Iron and Iron binding capacity panel - Serum or Plasma IRON + TIBC Lab Routine Iron deficiency anemia due to chronic blood loss Expected: 06/07/2022, Expires: 08/07/2022 [facility] Work Phone: Comment on above: Expected: 06/07/2022, Expires: 2 Start: 06-07-2022 End: 08-07-2022 RETIC COUNT RETIC COUNT Lab Routine Iron deficiency anemia due to chronic blood loss Expected: 06/07/2022, Expires: 08/07/2022 [facility] Work Phone: Comment on above: Expected: 06/07/2022, Expires: 2 Start: 03-27-2022 End: 05-27-2022 CBC W Auto Differential panel - Blood CBC + DIFF Lab Routine Iron deficiency anemia due to chronic blood loss Expected: 03/27/2022, Expires: 05/27/2022 [facility] Work Phone: Comment on above: Expected: 03/27/2022, Expires: 2 Start: 03-27-2022 End: 05-27-2022 FERRITIN BLD FERRITIN BLD Lab Routine Iron deficiency anemia due to chronic blood loss Expected: 03/27/2022, Expires: 05/27/2022 [facility] Work Phone: Comment on above: Expected: 03/27/2022, Expires: 2 Start: 03-27-2022 End: 05-27-2022 IRON + TIBC IRON + TIBC Lab Routine Iron deficiency anemia due to chronic blood loss Expected: 03/27/2022, Expires: 05/27/2022 [facility] Work Phone: Comment on above: Expected: 03/27/2022, Expires: 2 Start: 03-27-2022 End: 05-27-2022 RETIC COUNT RETIC COUNT Lab Routine Iron deficiency anemia due to chronic blood loss Expected: 03/27/2022, Expires: 05/27/2022 [facility] Work Phone: Comment on above: Expected: 03/27/2022, Expires: 2 Start: 08-01-2021 Influenza vaccination INFLUENZA (#1) [facility] Start: 2020 Mammography [facility] Start: 2020 Screening for malignant neoplasm of breast [facility] Start: 2010 HPV TESTING HPV TESTING [facility] Start: 2010 Screening for malignant neoplasm of cervix [facility] Start: 2001 PAP TESTING PAP TESTING [facility] Start: 2001 Screening for malignant neoplasm of cervix [facility] Start: 1999 Hepatitis A Vaccine (1 of 2 - Risk 2-dose series) Hepatitis A Vaccine (1 of 2 - Risk 2-dose series) [facility] Start: 1999 Pneumococcal vaccination Pneumococcal Vaccine (1 of 2 - PCV) [facility] Start: 1999 SHINGRIX VACCINE (1 of 2) SHINGRIX VACCINE (1 of 2) [facility] Start: 1999 Urine microalbumin profile [facility] Start: 1998 Depression Screening Depression Screening [facility] Start: 1998 HEPATITIS C SCREENING HEPATITIS C SCREENING [facility] Start: 1998 Hepatitis C screening Hepatitis C Screening [facility] Start: 1998 HIV SCREENING HIV SCREENING [facility] Start: 1998 HIV screening HIV Screening [facility] Start: 1998 MMR (1 of 2 - Risk 2-dose series) MMR (1 of 2 - Risk 2-dose series) [facility] Start: 1998 MMR Vaccine (1 of 2 - Risk 2-dose series) MMR Vaccine (1 of 2 - Risk 2-dose series) [facility] Start: 1992 Adult depression screening assessment DEPRESSION SCREENING [facility] Start: 1992 COVID-19 VACCINE (1) COVID-19 VACCINE (1) [facility] Start: 1991 Screening for malignant neoplasm of cervix Cervical Cancer Screening [facility] Start: 1990 Meningococcal B Vaccine: Consider Based On Risk (1 of 4 - Increased Risk) Meningococcal B Vaccine: Consider Based On Risk (1 of 4 - Increased Risk) [facility] Start: 1990 MENINGOCOCCAL B: Consider based on risk (1 of 4 - Increased Risk Bexsero 2-dose series) MENINGOCOCCAL B: Consider based on risk (1 of 4 - Increased Risk Bexsero 2-dose series) [facility] Start: 1986 PNEUMOCOCCAL (1 - PCV) PNEUMOCOCCAL (1 - PCV) [facility] Start: 1986 Pneumococcal vaccination [facility] Start: 1985 COVID-19 VACCINE (#1) COVID-19 VACCINE (#1) [facility] Start: 1981 HEPATITIS A (1 of 2 - Risk 2-dose series) HEPATITIS A (1 of 2 - Risk 2-dose series) [facility] Start: 02-03-1981 COVID-19 VACCINE (#1) COVID-19 VACCINE (#1) [facility] End: 06-20-2025 BD DXA TRABECULAR BONE SCORE (TBS) BD DXA TRABECULAR BONE SCORE (TBS) 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 1 Occurrences starting 05/21/2024 until 06/20/2025 [facility] Comment on above: 1 Occurrences starting 05/21/2024 until 06/20/2025 End: 12-11-2024 CBC panel - Blood by Automated count CBC Lab Routine retirement (current) use of immunomodulator Every other week for 2 Occurrences starting 12/12/2023 until 12/11/2024 [facility] Work Phone: Comment on above: Every other week for 2 Occurrences start ing 12/12/2023 until 12/11/2024 CT Small bowel W contrast PO and W contrast IV CT ENTEROGRAPHY W IVCON Radiology Routine Crohn's disease of large intestine with complication (HCC) 03/12/2025 2:18 PM EDT [facility] Work Phone: End: 06-20-2025 DXA Skeletal system.axial Views for bone density DXA-AXIAL SKELETON 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 1 Occurrences starting 05/21/2024 until 06/20/2025 [facility] Comment on above: 1 Occurrences starting 05/21/2024 until 06/20/2025 End: 12-11-2024 Hepatic function 2000 panel - Serum or Plasma HEPATIC FUNCTION PNL Lab Routine retirement (current) use of immunomodulator Every other week for 2 Occurrences starting 12/12/2023 until 12/11/2024 [facility] Work Phone: Comment on above: Every other week for 2 Occurrences start ing 12/12/2023 until 12/11/2024 SURGICAL PATHOLOGY [facility] Work Phone: Comment on above: Release Upon Ordering for 1 Occurrences starting 12/17/2024, 1 completed THIN PREP TIS PAP AN D HR HPV DNA THIN PREP TIS PAP AND HR HPV DNA Pathology and Cytology Routine Well woman exam with routine gynecological exam Ordered: 01/24/2025 [facility] Comment on above: Ordered: 01/24/2025 [facility] Payers Date Payer Category Payer Medicaid [id number] 2023 Medicaid [id number] 2022 Medicaid [id number] 2022 Self-pay [id number] 2021 Medicaid [employer] [employer] [id number] 2021-Present [phone] [address] [place] [address] Medicaid [id number] 1980 Unknown [id number] 1980 Unknown [id number] 1980 Unknown [id number] 1980 Unknown [id number] 1980 Unknown [id number] Unknown [id number] Unknown [id number] Unknown [id number] Unknown [id number] Social History Date Type Detail [facility] consumption unknown [facility] Start: 1980 Sex Assigned At Not on file [facility] Start: 10-15-2021 End: 12-25-2021 Tobacco smoking status KYIS Never smoked tobacco [facility] Start: 12-25-2021 End: 01-24-2025 Alcohol intake Current drinker of alcohol (finding) [facility] Start: 03-30-2023 End: 04-07-2023 Sex Assigned At [facility] Start: 06-08-2022 End: 06-18-2022 Exposure to SARS-CoV-2 (event) Not sure [facility] Start: 1980 Sex Assigned At Female F [facility] Start: 03-30-2023 End: 09-15-2024 Tobacco use and exposure Smokeless tobacco non-user [facility] Start: 03-30-2023 End: 03-04-2025 Alcohol intake Ex-drinker (finding) [facility] Start: 03-31-2023 History SDOH Financial 5 [facility] Start: 03-31-2023 History SDOH Food Worry 1 [facility] Start: 03-31-2023 History SDOH Transpo rt Med 2 [facility] Start: 03-30-2023 End: 04-07-2023 History of Social function [facility] How hard is it for y ou to pay for the very basics like food, housing, medical care, and heating Not hard at all [facility] (I/We) worried katie er (my/our) food would run out before (I/we) got money to buy more. Never true [facility] In the past 12 month s, was there a time when you were not able to pay the mortgage or rent on time? No [facility] Start: 01-08-2024 End: 09-15-2024 Tobacco smoking status NHIS Ex-smoker [facility] End: 12-01-2022 History of tobacco use Current smoker [facility] End: 12-01-2022 History of tobacco use Cigarette Smoker [facility] Are you now , , , , [...] Healthcare History of tobacco use Passive smoker [facility] Functional Status Date Assessment Result Facility 10-01-2024 Are you deaf, or do you have serious difficulty hearing No 10/01/2024 10:57 AM Rose Schumacher RN No [facility] 10-01-2024 Are you blind, or do you have serious difficulty seeing, even when wearing glasses No 10/01/2024 10:57 AM Rose Schumacher RN No [facility] 10-01-2024 Do you have serious difficulty walking or climbing stairs No 10/01/2024 10:57 AM EDT Rose Mcknight RN No [facility] 10-01-2024 Do you have difficul ty dressing or bathing No 10/01/2024 10:57 AM EDT Rose Mcknight RN No [facility] 10-01-2024 Because of a physica l, mental, or emotional condition, do you have difficulty doing errands alone such as visiting a physician's office or shopping No 10/01/2024 10:57 AM EDT Rose Mcknight RN No [facility] Mental Status Date Assessment Result Facility 10-01-2024 Because of a physica l, mental, or emotional condition, do you have serious difficulty concentrating, remembering, or making decisions No 10/01/2024 10:57 AM EDT Rose Mcknight RN No [facility] Clinical Notes 09-11-2021 to 03-12-2025 Priya Silver RT(R) - 03/12/2025 2:30 PM EDTPSy balbuena RN - 03/12/2025 1:00 PM EDTTelephone Encounter - Melanie Lechuga RN - 03/09/2025 12:33 PM EDTPatient Instructions Note Date & Type Note Facility 03-12-2025 History of Present illness Narrative Radiology Service Progress Note PATIENT NAME: Angela Elam DATE OF SERVICE: March 12, 2025 TIME: 2:12 PM PATIENT IDENTITY VERIFICATION COMPLETED USING TWO (2) IDENTIFIERS: Name and Date of confirmed by patient verbally and Name and Date of confirmed by identification band. FALL SCREENING: Has the patient had 2 falls in the last year or 1 fall with injury or currently using an Ambulatory Assistive Device (Walker, Cane, Wheelchair, Crutches, etc.)? No PATIENT GENDER DATA: Assigned female at . status: : No status: NO. PATIENT RELEVANT IMPLANT DATA REVIEWED: Not Applicable PATIENT PRESENTS WITH AN IMPLANTABLE OR ATTACHED LINSEED OIL TEMPERER: No RADIOLOGY DEPARTMENT: CT; Exam(s) Completed: Enterography PERIPHERAL IV DATA: Not applicable SIGNED BY: RT Emily(R) March 12, 2025 2:12 PM documented in this encounter [facility] 03-12-2025 Note HNO ID: [id number] Author: PRIYA SILVER RT(R) Service: Radiology Author Type: Technologist Type: Progress Notes Filed: 03/12/2025 14:13 Note Text: Radiology Service Progress Note PATIENT NAME: Angela Elam DATE OF SERVICE: March 12, 2025 TIME: 2:12 PM PATIENT IDENTITY VERIFICATION COMPLETED USING TWO (2) IDENTIFIERS: Name and Date of confirmed by patient verbally and Name and Date of confirmed by identification band. FALL SCREENING: Has the patient had 2 falls in the last year or 1 fall with injury or currently using an Ambulatory Assistive Device (Walker, Cane, Wheelchair, Crutches, etc.)? No PATIENT GENDER DATA: Assigned female at . status: : No status: NO. PATIENT RELEVANT IMPLANT DATA REVIEWED: Not Applicable PATIENT PRESENTS WITH AN IMPLANTABLE OR ATTACHED LINSEED OIL TEMPERER: No RADIOLOGY DEPARTMENT: CT; Exam(s) Completed: Enterography PERIPHERAL IV DATA: Not applicable SIGNED BY: RT Emily(Aarti) March 12, 2025 2:12 PM [facility] 03-12-2025 History of Present illness Narrative Radiology Service Progress Note DATE OF SERVICE: March 12, 2025 TIME: 1:06 PM PATIENT WEIGHT: 200 LBS PATIENT IDENTITY VERIFICATION COMPLETED USING TWO (2) STANDARD IDENTIFIERS: Name and Date of confirmed by patient verbally and Name and Date of confirmed by identification band. FALL SCREENING: Has the patient had 2 falls in the last year or 1 fall with injury or currently using an Ambulatory Assistive Device (Walker, Cane, Wheelchair, Crutches, etc.)? No PATIENT GENDER DATA: Assigned female at . status: : No status: NO. ALLERGIES: Reviewed and unchanged CONTRAST ALLERGY: No EXAM: CT -CONTRAST INDUCED NEPHROPATHY RISK FACTORS: Not applicable CREATININE: Creatinine Date Value Ref Range Status 10/09/2024 0.90 0.58 - 0.96 mg/dL Final 10/01/2024 0.78 0.58 - 0.96 mg/dL Final 09/30/2024 0.78 0.58 - 0.96 mg/dL Final Estimated Glomerular Filtration Rate Date Value Ref Range Status 10/09/2024 81 >=60 mL/min/1.73m Final Comment: Estimated Glomerular Filtration Rate (eGFR) is calculated using the 2020 CKD-EPI creatinine equation. This equation utilizes serum creatinine, sex, and age as parameters. The creatinine assay has traceable calibration to isotope dilution-mass spectrometry. Refer to KDIGO guidelines for clinical interpretation. In patients with unstable renal function, e.g. those with acute kidney injury, the eGFR may not accurately reflect actual GFR. P.O.C.T. RESULTS: N/A March 12, 2025 TREATMENT: N/A and No Hydration needed. IV SITE: Ambulatory: A peripheral IV was started in the Right forearm with a Angio cath: 20 gauge. and A Saline lock was inserted per protocol IV SITE APPEARANCE: Clean,Dry and Intact SIGNATURE: Sy Terrazas RN PATIENT NAME: Angela Elam DATE: March 12, 2025 TIME: 1:06 PM documented in this encounter [facility] 03-12-2025 Note HNO ID: [id number] Author: SY TERRAZAS RN Service: Nursing Author Type: Registered Nurse Type: Progress Notes Filed: 03/12/2025 13:17 Note Text: Radiology Service Progress Note DATE OF SERVICE: March 12, 2025 TIME: 1:06 PM PATIENT WEIGHT: 200 LBS PATIENT IDENTITY VERIFICATION COMPLETED USING TWO (2) STANDARD IDENTIFIERS: Name and Date of confirmed by patient verbally and Name and Date of confirmed by identification band. FALL SCREENING: Has the patient had 2 falls in the last year or 1 fall with injury or currently using an Ambulatory Assistive Device (Walker, Cane, Wheelchair, Crutches, etc.)? No PATIENT GENDER DATA: Assigned female at . status: : No status: NO. ALLERGIES: Reviewed and unchanged CONTRAST ALLERGY: No EXAM: CT -CONTRAST INDUCED NEPHROPATHY RISK FACTORS: Not applicable CREATININE: Creatinine Date Value Ref Range Status 10/09/2024 0.90 0.58 - 0.96 mg/dL Final 10/01/2024 0.78 0.58 - 0.96 mg/dL Final 09/30/2024 0.78 0.58 - 0.96 mg/dL Final Estimated Glomerular Filtration Rate Date Value Ref Range Status 10/09/2024 81 >=60 mL/min/1.73m? Final Comment: Estimated Glomerular Filtration Rate (eGFR) is calculated using the 2020 CKD-EPI creatinine equation. This equation utilizes serum creatinine, sex, and age as parameters. The creatinine assay has traceable calibration to isotope dilution-mass spectrometry. Refer to KDIGO guidelines for clinical interpretation. In patients with unstable renal function, e.g. those with acute kidney injury, the eGFR may not accurately reflect actual GFR. P.O.C.T. RESULTS: N/A March 12, 2025 TREATMENT: N/A and No Hydration needed. IV SITE: Ambulatory: A peripheral IV was started in the Right forearm with a Angio cath: 20 gauge. and A Saline lock was inserted per protocol IV SITE APPEARANCE: Clean,Dry and Intact SIGNATURE: Sy Terrazas RN PATIENT NAME: Angela Elam DATE: March 12, 2025 TIME: 1:06 PM [facility] 03-09-2025 Telephone encounter Note Called and informed Luis at [employer] that diagnosis was changed to Crohn's and a new order/enrollment form was sent. Melanie Lechuga RN [facility] 03-09-2025 Miscellaneous Notes Called and informed Luis at [employer] that diagnosis was changed to Crohn's and a new order/enrollment form was sent. Melanie Lechuga RN Images from the original note were not included. Mak Martinez MD Sarkauskas, Chelsea A, RN I'm suspecting that she now has Crohn's disease based on a recently-diagnosed sigmoid stricture. She will need Crohn's-specific dosing for Tremfya. Let me know if you have any questions about this. Patient's diagnosis changed to Crohn's. New Tremfya with Me paperwork filled out and faxed in. Melanie Lechuga RN Patient is switching from Skyrizi to Tremfya. Skyrizi isn't working and causing pretty bad joint pain. Will fill out Tremfya With Me paperwork and fax in. Melanie Lechuga RN documented in this encounter [facility] 03-08-2025 Telephone encounter Note Images from the original note were not included. Mak Martinez MD Sarkauskas, Chelsea A, RN I'm suspecting that she now has Crohn's disease based on a recently-diagnosed sigmoid stricture. She will need Crohn's-specific dosing for Tremfya. Let me know if you have any questions about this. Patient's diagnosis changed to Crohn's. New Tremfya with Me paperwork filled out and faxed in. Melanie Lechuga RN [facility] 03-04-2025 Telephone encounter Note Patient is switching from Skyrizi to Tremfya. Skyrizi isn't working and causing pretty bad joint pain. Will fill out Tremfya With Me paperwork and fax in. Melanie Lechuga RN [facility] 03-04-2025 Instructions Mak Martinez MD - 03/04/2025 11:57 AM EDT Thank you for seeing me in clinic today! As we discussed, my recommendations are as follows: I suspect that your joint pain may be due to Skyrizi, so I'd like to change therapy to Tremfya. Tremfya (guselkumab) is a very effective treatment for [id number] Crohn's disease and ulcerative colitis. The first three doses (at 0, 4 and 8 weeks) are infusions. These doses are administered at an infusion center through an IV. After receiving these 3 doses, the medication is given through an auto-injector pen subcutaneously (under the skin) once every month, beginning on week 12 (or 4 weeks after the last infusion). Tremfya suppresses the immune system to manage inflammation. As a result, infections are more common. It has a relatively lower infectious risk profile compared to other biologic medications. Other potential side effects include elevated liver enzymes, injection site reactions, joint pain and headache. Please let me know if you have any questions about any of this information or if you have any concerns once you start the medication! Please get blood work done at your earliest convenience. Keep your scheduled CT enterography appointment Keep your scheduled appointment with Dr. Jc later this month. Take Miralax 34 g (2 capfuls) per day Please make a follow up visit with me in 6 month or sooner as needed for any new/worsening gastrointestinal symptoms If you have any questions about the above treatment plan, please do not hesitate to send me a [employer] message or call the [facility] at [phone] to route me a message. If you start feeling unwell or develop new/worsening gastrointestinal symptoms, especially if this occurs well before a future appointment, please call or message me directly for further instructions. documented in this encounter [facility] 03-04-2025 History of Present illness Narrative GI FOLLOW UP OFFICE VISIT REASON FOR VISIT: IBD, unspecified type PATIENT SUMMARY: Angela Elam is a 44 year old female with a history of tobacco use and recurrent C. Diff colitis (2018, 2022) who presents to the GI clinic for IBD follow up She was diagnosed initially with UC in 2018. She tried mesalamine, Humira (didn't seem to work after 3 doses), Entyvio x 1 year (afforded partial control), Stelara (initially every 8 weeks then every 6 weeks) and Zeposia (intolerable d/t visual disturbances). Most recently, she tried Remicade in 2022, but was found to have low IFX levels and low-positive Ab titers, so her dose was increased from 5 to 10 mg/kg and Imuran was added. She stopped Imuran after she developed a rash and decided to stop Remicade on her own after this because she felt like it wasn't working. She saw Dr. Jc on 01/08/24 and was ready to proceed with surgery, but postponed this because she was taking care of her niece without much help at home. She was worried about post-surgical recovery. 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 diff twice on biologic therapy. She also had shingles in early 2023. Last GI appointment was virtual in 05/2024. Since she couldn't proceed with surgery, she was interested in medical therapy. Skyrizi was recommended, but delayed due to insurance denials. She was subsequently admitted to in 10/2024 with severe diarrhea and rectal bleeding prior to starting Skyrizi. 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 Biopsies were positive for CMV. She completed treatment with valganciclovir. She started Skyrizi in 10/2024. Repeat flex sig in 12/2024 showed persistent severe proctosigmoiditis with stricturing, but biopsies were negative for CMV. On both exams, the gastroscope could not traverse this stricture. INTERVAL HISTORY: has not been feeling well. She reports a significant change in bowel habits over the past two months, characterized by daily small, incomplete bowel movements. She feels constipated, but stools are not hard. She also reports bloating and excessive flatulence. In an attempt to alleviate her symptoms, she performed a self-administered colonoscopy prep last Friday, which resulted in temporary relief. She denies hematochezia, vomiting and overt abdominal pain. She has been modifying her diet to avoid high-fiber foods, dairy, and non-natural sugars, noting that certain foods like broccoli and apples exacerbate her symptoms. Her weight is stable. She is off steroids. Her other concern is new, [id number]-tasovq joint pain since starting Skyrizi. She has been on Skyrizi for the past 4-6 months, and reports that her joint pain began around this time, but worsened approximately two months ago, coinciding with her last injection. The pain affects multiple joints, including her knees, hips, elbows, and shoulders, and is most severe upon waking and after periods of inactivity. She currently manages the pain with Tylenol. She notes that this joint pain is distinct from the lower leg pain she has experienced during previous flares. Feels that it's related to Skyrizi. 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 She reports that her mother has been providing more support recently, making it easier for her to attend medical appointments. She is currently awaiting a CT enterography scheduled for the and has a follow-up appointment with Dr. Jc on the to discuss surgical options. Past Clinical Work-up: Sigmoidoscopy: 12/17/24: Suspected Crohn's disease, assessment for response to treatment of CMV colitis: - Severe, non-traversible stricture in the sigmoid colon. Biopsied. - Mild scattered inflammation found in the rectum and in the sigmoid colon secondary to inflammatory bowel disease. Biopsied. - Small internal hemorrhoids. Pathology: A. Sigmoid stricture, biopsy: -Moderate chronic active colitis B. Left colon, biopsy: -Moderate chronic active colitis Latest Ref Rng 09/29/2024 10/09/2024 11/04/2024 12/03/2024 Protein, Total 6.3 - 8.0 g/dL 6.5 6.1 (L) 6.6 6.7 Albumin 3.9 - 4.9 g/dL 4.0 4.0 4.2 4.4 Calcium 8.5 - 10.2 mg/dL 9.5 8.8 Bilirubin, Total 0.2 - 1.3 mg/dL <0.2 (L) 0.2 <0.2 (L) 0.2 Alkaline Phosphatase 34 - 123 U/L 58 52 57 57 AST 13 - 35 U/L 13 16 21 13 ALT 7 - 38 U/L 20 18 24 15 Glucose 74 - 99 mg/dL 116 (H) 91 BUN 7 - 21 mg/dL 17 13 Creatinine 0.58 - 0.96 mg/dL 0.87 0.90 Sodium 136 - 144 mmol/L 140 141 Potassium 3.7 - 5.1 mmol/L 4.2 4.0 Chloride 98 - 107 mmol/L 107 104 CO2 22 - 30 mmol/L 22 23 Anion Gap 8 - 15 mmol/L 11 14 eGFR >=60 mL/min/1.73m 84 81 Latest Ref Rng 10/09/2024 11/04/2024 12/03/2024 WBC 3.70 - 11.00 k/uL 12.06 (H) 7.70 8.81 RBC 3.90 - 5.20 m/uL 4.44 4.65 4.59 Hemoglobin 11.5 - 15.5 g/dL 9.7 (L) 11.8 12.6 Hematocrit 36.0 - 46.0 % 34.7 (L) 38.6 39.2 MCV 80.0 - 100.0 fL 78.2 (L) 83.0 85.4 MCH 26.0 - 34.0 pg 21.8 (L) 25.4 (L) 27.5 MCHC 30.5 - 36.0 g/dL 28.0 (L) 30.6 32.1 RDW-CV 11.5 - 15.0 % 26.1 (H) 25.4 (H) 19.1 (H) Platelet Count 150 - 400 k/uL 458 (H) 420 (H) 323 Latest Ref Rng 04/03/2023 11/04/2024 TB Nil <=8.00 IU/mL <0.00 0.02 TB1 Ag minus Nil <0.35 IU/mL 0.02 0.00 TB2 Ag minus Nil <0.35 IU/mL <0.00 0.00 TB Result Negative Negative Mitogen minus Nil >=0.50 IU/mL 4.89 >9.98 TB Interpretation Infection with M. tuberculosis complex is unlikely. If latent tuberculosis infection is highly suspected, a negative result does not rule out the infection. Specimens from immunocompromised patients and those <5 years of age may show false negative results. In case of a contact investigation, please repeat 8-12 weeks after a known exposure. Infection with M. tuberculosis complex is unlikely. If latent tuberculosis infection is highly suspected, a negative result does not rule out the infection. Specimens from immunocompromised patients and those <5 years of age may show false negative results. In case of a contact investigation, please repeat 8-12 weeks after a known exposure. Latest Ref Rng 10/09/2024 CMV DNA Not Detected Detected ! CMV DNA (IU/mL) IU/mL <35 CMV DNA (log IU/mL) log IU/mL <1.54 Latest Ref Rng 11/21/2023 09/29/2024 10/09/2024 CRP <0.9 mg/dL 1.2 (H) 0.6 <0.3 CTAP w/ IVC: 09/30/24: There is colonic inflammation noted along the rectosigmoid colon with possible stricturing at the proximal sigmoid location. No abscess is seen. No mass lesion is detected. Urothelial thickening of the right side, UTI is in the differential. Latest Ref Rng 03/30/2023 11/21/2023 09/29/2024 Shigella/Enteroinvasive E. coli (EIEC) DNA Not Detected Not detected Not detected Not detected Campylobacter jejuni/coli DNA Not Detected Not detected Not detected Not detected Shiga-like toxin producing E. coli (STEC) DNA Not Detected Not detected Not detected Not detected Salmonella species DNA Not Detected Not detected Not detected Not detected Latest Ref Rng 11/21/2023 09/29/2024 CALPROTECTIN, FECAL QUANTITATIVE <50 ug/g 1,490 (H) 3,080 (H) CALPROTECTIN, FECAL INTERP Normal Elevated ! Elevated ! Latest Ref Rng 03/30/2023 11/21/2023 09/29/2024 C. difficile PCR Negative for C. difficile toxin by PCR Positive for C. difficile toxin by PCR ! Negative for C. difficile toxin by PCR Negative for C. difficile toxin by PCR Latest Ref Rng 04/02/2023 09/29/2024 WSR 0 - 20 mm/hr 52 (H) 13 KUB: 09/29/24: Possible constipation. Latest Ref Rng 01/10/2022 03/28/2022 09/17/2024 Ferritin 14.7 - 205.1 ng/mL 8.0 (L) 83.5 6.5 (L) Latest Ref Rng 01/10/2022 03/28/2022 09/17/2024 Iron 41 - 186 ug/dL 24 (L) 46 12 (L) TIBC 232 - 386 ug/dL 390 (H) 326 393 (H) Transferrin Saturation 15.0 - 57.0 % 6 (L) 14 (L) 3.1 (L) IFX Level and Antibody Level: 11/21/23: - Undetectable serum level. - Antibody - 5.4 U/mL KUB: 04/04/23: Moderate stool in the colon CTAP w/IV con: 03/30/23: Findings consistent with colitis. Colonoscopy: 10/15/21: Dr. Yusuf: - Severe active ulcerative pancolitis with pseudopoyposis Prep was good Recommendations: Continue budesonide and Stelara Path: Chronic active colitis ALLERGIES No Known Allergies PAST MEDICAL HISTORY Diagnosis Date ADHD (attention [...] Types: Cigarettes Quit date: 12/01/2022 Years since quittin.2 Passive exposure: Past Smokeless tobacco: Never Vaping Use Vaping status: current everyday user Substances: Nicotine Devices: Disposable, Pre-filled or refillable cartridge Substance Use Topics Alcohol use: Not Currently Drug use: Not Currently Current Outpatient Medications Medication Sig iv contrast (will be provided with radiology test) CT Enterography W Inject, intravenously, once for 1 dose.No IV access, insert saline lock prior to the beginning of sedation, infusion, injection of imaging exam. Discontinue saline lock post exam. If Pt. has a central line or IVAD, may access for administration according to line specific nursing protocol. Once exam is complete flush line and de-access according to line specific nursing protocol in the CT contrast administration guidelines link. enteric contrast (will be provided with radiology test) For CT ENTEROGRAPHY W IVCON order Administer, As Directed One Time Only, via Oral, Rectal, both Oral and Rectal, Enteric Tube, Stoma or Indwelling Catheter, Enteric Contrast as designated per enteric contrast guidelines. risankizumab-rzaa (SKYRIZI) 360 mg/2.4 mL (150 mg/mL) wearable injector Inject 360 mg subcutaneously every 8 weeks. clonazePAM (KLONOPIN) 0.5 mg tablet Take 0.5 mg by mouth two times a day as needed for anxiety. No current facility-administered medications for this visit. I have confirmed and edited, if necessary, the PFSH obtained by others. REVIEW OF SYSTEMS CONSTITUTIONAL: Negative for unintentional weight loss, malaise or fevers HEENT: Negative for frequent/significant headaches, changes in hearing/vision, nose bleeds or other nasal problems RESPIRATORY: Negative for cough, hemoptysis, wheezing or dyspnea CARDIOVASCULAR: Negative for chest pain, palpitations, syncope or lightheadedness GI: See HPI : Negative for dysuria, polyuria, incontinence or hematuria MUSCULOSKELETAL: (+) arthralgia INTEGUMENTARY/SKIN: Negative for rash or skin lesion HEMATOLOGY/LYMPHOLOGY: Negative for prolonged bleeding, easy bruising or swollen nodes ENDOCRINE: Negative for cold/heat intolerance, polydipsia or goiter NEURO: Negative for encephalopathy, tremor or gait abnormality PSYCH: Negative for new changes in mood or affect PHYSICAL EXAM: BP 118/79 Pulse 98 Wt 92 kg (202 lb 13.2 oz) LMP 11/26/2024 (Approximate) BMI 33.75 kg/m Gen: Comfortable female in NAD Head: Normocephalic, atraumatic Skin: No jaundice, rashes or skin lesions ENT: Sclera anicteric, conjunctiva pink, no thrush or oral aphthae Neck: No goiter or mass Heart: RRR, no murmurs, rubs or gallops Lungs/Chest: CTAB, non-labored breathing Abd: Soft, non-distended, non-tender, hypoactive bowel sounds, no palpable masses or organomegaly Ext: No lower extremity edema, clubbing or cyanosis. Extremities are warm and well-perfused Neuro: Alert and oriented, no tremor or gross focal motor deficits Psych: Congruent mood and affect, appropriate insight and judgement ASSESSMENT/PLAN: Angela Elam is a 44 year old female with a history of tobacco use and recurrent C. Diff colitis (2018, 2022), CMV colitis (diagnosed in 08/2024, treated with valganciclovir) who presents to the GI clinic for IBD follow up. 1) Inflammatory bowel disease, unspecified Suspect Crohn's colitis based on recently-diagnosed sigmoid stricture Duration of symptoms: 2018 Extent: Bruce-colonic Disease severity: Severe with non-traversable sigmoid stricture Current disease status: Active Current treatment: Skyrizi (10/2024-present) Prior treatment: Mesalamine (ineffective), Humira (no response after 3 injections), Entyvio x 1 year (partial control), Stelara every 6 weeks (lost response), Zeposia (intolerable d/t visual disturbances), Remicade (developed antibodies), Imuran (rash) Prior luminal surgery: No History of colonic dysplasia: No Extraintestinal manifestations: IBD arthropathy was initially considering colectomy to manage what was initially considered severe, medically-refractory UC. She unexpectedly found herself having to take care of her infant niece and declined surgery; she had concerns about post-colectomy recovery and being able to take care of her niece without family support. Timely follow up and adherence with medical recommendations have been a challenge in the past since she often prioritizes care of close family members over her own health. Late last year, she was hospitalized for worsening diarrhea. Flex sig was notable for a non-traversable sigmoid stricture with severe colitis and CMV infection. Repeat flex sig after treatment of CMV showed a persistent stricture, suspicious for fibrostenosing Crohn's disease of the colon, which does not appear to be responding completely to Skyrizi. Biopsies were negative for CMV. Over the past 2 months, her bowel habits have been constipation-predominant, which is a significant change from her baseline. I am concerned that her stricture is causing this change. She is also having intolerable joint pain, which seems to correlate with Skyrizi injections. We will have to stop this. Although not a substitute for surgery, medical therapy is still recommended given her severe disease. Based on her history of multiple gastrointestinal infections, Tremfya is favored given it's relatively lower infectious risk profile. --Hold Skyrizi --Start Tremfya INDUCTION: 200 mg IV OR 400 mg SC at 0, 4 and 8 weeks MAINTENANCE: 200 mg SC at 12 weeks and monthly thereafter --Keep CTE appointment to rule out small bowel disease --Keep appointment with Dr. Jc ([facility]) later this month to discuss surgery. Subtotal colectomy may be a consideration given recent concern for possible Crohn's disease. --Labs (CBC, CMP, CRP) --Continue to avoid NSAIDs --Avoid smoking / vaping --Take Miralax 34 g/day Follow up in 6 months or sooner as needed for any new/worsening gastrointestinal symptoms Mak Martinez MD Department of Gastroenterology and Hepatology [facility] [place] This note was partially generated using [employer]r voice recognition system, and there may be some incorrect words, spellings, and punctuation that were not noted in checking the note before saving. documented in this encounter [facility] 03-04-2025 Note HNO ID: [id number] Author: MAK MARTINEZ MD Service: ? Author Type: Physician Type: Progress Notes Filed: 03/05/2025 16:47 Note Text: GI FOLLOW UP OFFICE VISIT REASON FOR VISIT: IBD, unspecified type PATIENT SUMMARY: Angela Elam is a 44 year old female with a history of tobacco use and recurrent C. Diff colitis (2018, 2022) who presents to the GI clinic for IBD follow up She was diagnosed initially with UC in 2019. She tried mesalamine, Humira (didn't seem to work after 3 doses), Entyvio x 1 year (afforded partial control), Stelara (initially every 8 weeks then every 6 weeks) and Zeposia (intolerable d/t visual disturbances). Most recently, she tried Remicade in 2022, but was found to have low IFX levels and low-positive Ab titers, so her dose was increased from 5 to 10 mg/kg and Imuran was added. She stopped Imuran after she developed a rash and decided to stop Remicade on her own after this because she felt like it wasn't working. She saw Dr. Jc on 01/08/24 and was ready to proceed with surgery, but postponed this because she was taking care of her infant niece without much help at home. She was worried about post-surgical recovery. 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 diff twice on biologic therapy. She also had shingles in early 2023. Last GI appointment was virtual in 05/2024. Since she couldn't proceed with surgery, she was interested in medical therapy. Skyrizi was recommended, but delayed due to insurance denials. She was subsequently admitted to in 10/2024 with severe diarrhea and rectal bleeding prior to starting Skyrizi. 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 Biopsies were positive for CMV. She completed treatment with valganciclovir. She started Skyrizi in 10/2024. Repeat flex sig in 12/2024 showed persistent severe proctosigmoiditis with stricturing, but biopsies were negative for CMV. On both exams, the gastroscope could not traverse this stricture. INTERVAL HISTORY: has not been feeling well. She reports a significant change in bowel habits over the past two months, characterized by daily small, incomplete bowel movements. She feels constipated, but stools are not hard. She also reports bloating and excessive flatulence. In an attempt to alleviate her symptoms, she performed a self-administered colonoscopy prep last Friday, which resulted in temporary relief. She denies hematochezia, vomiting and overt abdominal pain. She has been modifying her diet to avoid high-fiber foods, dairy, and non-natural sugars, noting that certain foods like broccoli and apples exacerbate her symptoms. Her weight is stable. She is off steroids. Her other concern is new, bwexxcny-ln-pomjog joint pain since starting Skyrizi. She has been on Skyrizi for the past 4-6 months, and reports that her joint pain began around this time, but worsened approximately two months ago, coinciding with her last injection. The pain affects multiple joints, including her knees, hips, elbows, and shoulders, and is most severe upon waking and after periods of inactivity. She currently manages the pain with Tylenol. She notes that this joint pain is distinct from the lower leg pain she has experienced during previous flares. Feels that it's related to Skyrizi. 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 She reports that her mother has been providing more support recently, making it easier for her to attend medical appointments. She is currently awaiting a CT enterography scheduled for the and has a follow-up appointment with Dr. Jc on the to discuss surgical options. Past Clinical Work-up: Sigmoidoscopy: 12/17/24: Suspected Crohn's disease, assessment for response to treatment of CMV colitis: - Severe, non-traversible stricture in the sigmoid colon. Biopsied. - Mild scattered inflammation found in the rectum and in the sigmoid colon secondary to inflammatory bowel disease. Biopsied. - Small internal hemorrhoids. Pathology: A. Sigmoid stricture, biopsy: -Moderate chronic active colitis B. Left colon, biopsy: -Moderate chronic active colitis Latest Ref Rng 09/29/2024 10/09/2024 11/04/2024 12/03/2024 Protein, Total 6.3 - 8.0 g/dL 6.5 6.1 (L) 6.6 6.7 Albumin 3.9 - 4.9 g/dL 4.0 4.0 4.2 4.4 Calcium 8.5 - 10.2 mg/dL 9.5 8.8 Bilirubin, Total 0.2 - 1.3 mg/dL <0.2 (L) 0.2 <0.2 (L) 0.2 Alkaline Phosphatase 34 - 123 U/L 58 52 57 57 AST 13 - 35 U/L 13 16 21 13 ALT 7 - 38 U/L 20 18 24 15 Glucose 74 - 99 mg/dL 116 (H) 91 BUN 7 - 21 mg/dL 17 13 Creatinine 0.58 - 0.96 mg/dL 0.87 0.90 Sodium 136 - 144 mmol/L 140 141 Potassium 3.7 - 5.1 mmol/L 4.2 4.0 Chloride 98 - 107 mmol/L 107 104 CO2 22 - 30 mmol/L 22 23 Anion Gap 8 - 15 mmol/L 11 14 eGFR >=60 mL/min/1.73m? 84 81 Latest Ref (more content not included)... [facility] 02-22-2025 Note HNO ID: [id number] Author: YULI JAMES RPh Service: ? Author Type: ? Type: Progress Notes Filed: 03/08/2025 14:14 Note Text: -------- Attestation signed by Yuli James RPh at 03/08/2025 2:14 PM Yuli Jamse PharmD Clinical Pharmacist, [employer] [facility] ; Pool: [facility] Pool #: [id number] -------- [facility] Discontinuation Assessment: Disease group: Inflammatory Medication: SKYRIZI 360 MG/2.4 ML (150 MG/ML) SUBCUTANEOUS WEARABLE INJECTOR Discontinue reason: Changing therapy Per jovi, pt is switching to Manny Zamorano [facility] [phone] [facility] 01-24-2025 History of Present illness Narrative Reason for Appointment: Patient ID: Angela Elam is a 44 y.o. female who presents for Well Women Visit Patient presents today for Annual Exam. MEDICATIONS Current Outpatient Medications Medication Instructions clonazePAM (KLONOPIN) 0.5 mg, Oral, 2 times daily PRN cyclobenzaprine (FLEXERIL) 10 mg, Oral, 3 times daily desvenlafaxine (PRISTIQ) 100 mg, Oral, Daily fluticasone (Flonase) 50 MCG/ACT nasal spray 2 sprays, Each Nostril, Daily, Shake gently. Before first use, prime pump. After use, clean tip and replace cap. 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 Migraine without aura and without status migrainosus, not intractable ([facility]) 08/13/2023 Ulcerative colitis ([facility]) 08/13/2023 Chronic neck pain 03/31/2023 Iron deficiency anemia due to chronic blood loss 12/25/2021 Migraines ([facility]) 03/31/2023 Nicotine use disorder 03/31/2023 Vapes nicotine containing substance 03/31/2023 Depression ([facility]) Resolved Ambulatory Problems Diagnosis Date Noted No Resolved Ambulatory Problems Past Medical History: Diagnosis Date ADHD (attention deficit hyperactivity disorder) ([facility]) Age 9 Anemia 5 years ago Inflammatory bowel disease 5 years Migraine ([facility] Visual impairment July 2023 HISTORY PAST MEDICAL HISTORY SOCIAL HISTORY Past Medical History: Diagnosis Date ADHD (attention deficit hyperactivity disorder) ([facility]) Age 9 Anemia 5 years ago Anxiety Depression ([facility]) Inflammatory bowel disease 5 years Migraine ([facility]) Visual impairment July 2023 Social History Tobacco Use Smoking status: Former Current packs/day: 1.00 Average packs/day: 1 pack/day for 20.0 years (20.0 ttl pk-yrs) Types: Cigarettes Smokeless tobacco: Never Tobacco comments: I vape currently Substance Use Topics Alcohol use: Yes Comment: I drink once a month or less Drug use: Never FAMILY HISTORY Family History Problem Relation Name Age of [...] illness Sister Keri Mental illness Sister Amna SURGICAL HISTORY Past Surgical History: Procedure Laterality Date TUBAL LIGATION 7 years ago REVIEW OF SYSTEMS Review of Systems: Review of Systems All other systems reviewed and are negative. OBJECTIVE Objective: Physical Exam Constitutional: Appearance: Normal appearance. She is well-developed. Genitourinary: Vulva normal. Breasts: Breasts are soft. Right: Normal. Cardiovascular: Rate and Rhythm: Normal rate and regular rhythm. Pulmonary: Effort: Pulmonary effort is normal. Breath sounds: Normal breath sounds. Abdominal: General: Bowel sounds are normal. There is no distension. Palpations: Abdomen is soft. Tenderness: There is no abdominal tenderness. There is no guarding or rebound. Musculoskeletal: General: No swelling. Normal range of motion. Right lower leg: No edema. Left lower leg: No edema. Neurological: Mental Status: She is alert and oriented to person, place, and time. Skin: General: Skin is warm and dry. Psychiatric: Mood and Affect: Mood normal. Behavior: Behavior normal. Vitals and nursing note reviewed. Exam conducted with a mainspring winder and oiler present. Vitals: Estimated body mass index is 34.32 kg/m as calculated from the following: Height as of 01/07/25: 5' 7 . Weight as of this encounter: 219 lb 1.9 oz. BP: 120/82 Patient's last menstrual period was 01/20/2025. ASSESSMENT & PLAN ICD-10-CM 1. Well woman exam with routine gynecological exam Z01.419 THIN PREP TIS PAP AND HR HPV DNA 2. Encounter for screening mammogram for malignant neoplasm of breast Z12.31 Bilateral screening mammogram Bilateral screening mammogram Annual: Patient presents today for an annual exam. Patient states she is doing well and has no complaints. Pap was obtained without difficulty and patient given mammogram order to have scheduled/obtained. Orders Placed This Encounter Procedures Bilateral screening mammogram Follow Up: Patient is to return in one year for annual unless needed otherwise. Documented by Coleen Almonte LPN on behalf of: Mathieu Proctor DO documented in this encounter [facility] 01-07-2025 History of Present illness Narrative Subjective [...] questions or concerns. documented in this encounter [facility] 12-30-2024 Telephone encounter Note Pt scheduled with Arlin at 2:40 pm tomorrow as needed a later appt. Asking that refill be sent prior to OV as completely out. [facility] 12-30-2024 Telephone encounter Note Images from the original note were not included. Yes, can send You Beck Tee DO25 minutes ago (1:37 PM) ANTHONY Did you want to wait until OV to fill rx? You Angela Elam26 minutes ago (1:37 PM) ANTHONY Miller, I left a voicemail yesterday that Dr. Tee did say you were due for an appointment for a refill. Please call [phone] and we can get you scheduled. Thanks! Angela Tee Sap Sd Analyst (supporting Beck Tee DO)28 minutes ago (1:35 PM) Hello! I am wondering why my medication was denied for refill. I have been have pretty severe anxiety the last few days and I don t have anything to take for it as I am out of my kolonopin. Thank you! [facility] 12-30-2024 Miscellaneous Notes Pt scheduled with Arlin [...] an appointment for a refill. Please call [phone] and we can get you scheduled. Thanks! Angela Tee Sap Sd Analyst (supporting Beck Tee DO)28 minutes ago (1:35 PM) Hello! I am wondering why my medication was denied for refill. I have been have pretty severe anxiety the last few days and I don t have anything to take for it as I am out of my kolonopin. Thank you! documented in this encounter [facility] 12-17-2024 Nurse Note POST OP LEARNING RESPONSE [...] Phuong Sanches RN In Department: AMBULATORY SURGERY [facility] 12-17-2024 Nurse Note POST OP LEARNING RESPONSE [...] Department: AMBULATORY SURGERY documented in this encounter [facility] 12-17-2024 Nurse Note PRE OP LEARNING ASSESSMENT [...] Jasmin Webb RN In Department: AMBULATORY SURGERY [facility] 12-17-2024 History and physical note HISTORY AND [...] Gastroenterology and Hepatology [facility] [place] [facility] 12-17-2024 History and physical note HISTORY AND [...] Gastroenterology and Hepatology [facility] [place] documented in this encounter [facility] 12-06-20[address] Please [address] labs if needed for appt on 12/10. Adri Aquino MA [facility] 12-06-[address] labs if needed for appt on 12/10. Adri Aquino MA documented in this encounter [facility] 11-12-2024 History of Present illness Narrative VIRTUAL VISIT PROGRESS NOTE This is a virtual visit using [employer] Video Visit. It required patient-provider interaction for the medical decision making as documented below. I have communicated my name and active licensure. The patient's identity and physical location were verified at the time of this visit. Either the patient or their legal telecommunications sales representative has been informed of the [...] 10/09/2024 Neut% 66.9 09/29/2024 Lymph% 25.3 09/29/2024 [place]% 6.4 09/29/2024 Eosin% 0.5 09/29/2024 Baso% 0.2 09/29/2024 Abs Neut (ANC) 8.11 09/29/2024 Abs [place] 0.78 09/29/2024 Abs Eosin 0.06 09/29/2024 Abs [...] 2024 2:09 PM Gross examination performed at [facility], [address] [place] [address] Performing Lab HL LAB Diagnostic interpretation performed at [facility], [address], [place] [address] CLIA# [id number] Acoustical Installer: Coleen Cramer M.D. Addendum The sigmoid [...] which included preparing to see the patient, [id number] patient care, completing clinical documentation, obtaining and/or reviewing separately obtained history, performing a medically appropriate examination, counseling and educating the patient/family/caregiver, ordering medications, tests, or procedures, communicating with other HCPs (not separately reported), independently interpreting results (not separately reported), communicating results to the patient/family/caregiver, and care coordination (not separately reported). Orlando Torres MD documented in this encounter [facility] 11-12-2024 Note HNO ID: [id number] Author: ORLANDO TORRES MD Service: ? Author Type: Physician Type: Progress Notes Filed: 11/12/2024 10:46 Note Text: VIRTUAL VISIT PROGRESS NOTE This is a virtual visit using [employer] Video Visit. It required patient-provider interaction for the medical decision making as documented below. I have communicated my name and active licensure. The patient's identity and physical location were verified at the time of this visit. Either the patient or their legal telecommunications sales representative has been informed of the [...] feeling (more content not included)... [facility] 11-04-2024 Telephone encounter Note See patient message [facility] 11-04-2024 Miscellaneous Notes See patient message Attempted to contact patient. No answer. Left message reminding patient of order for blood work that needs to be done before her insurance will approve the Skyrizi. Will await results. Melanie Lechuga RN documented in this encounter [facility] 11-04-2024 Telephone encounter Note Attempted to contact patient. No answer. Left message reminding patient of order for blood work that needs to be done before her insurance will approve the Skyrizi. Will await results. Melanie Lechuga RN [facility] 11-03-2024 Telephone encounter Note call to patient on scheduele for Monday 11/[address] bx want to get started on valgan 900 mg po bid ordered message left and message to GI doc will try to see virtually tomarrow Orlando Torres MD [facility] Work Phone: 11-03-2024 Miscellaneous Notes call to patient on scheduele for Monday 11/[address] bx want to get started on valgan 900 mg po bid ordered message left and message to GI doc will try to see virtually tomarrow Orlando Torres MD documented in this encounter [facility] 10-21-2024 Telephone encounter Note Call placed to ID and spoke with scheduling team who found an appointment with ID on FridayNovember 12, at 10:30am. This is the first available for requested day of the week. Patient notified via [employer]. Allie Pittman LPN [facility] 10-21-2024 Miscellaneous Notes Call placed to ID and spoke with scheduling team who found an appointment with ID on FridayNovember 12, at 10:30am. This is the first available for requested day of the week. Patient notified via [employer]. Allie Pittman LPN Attempted again to contact [...] chart message sent about appointment 11/15/2024 at [facility] at 1230pm Attempted again to contact patient. No answer. Mailbox full. Sent MC message with results and recommendations from Dr. Martinez as seen below. Anya - Can you help find an OV times slot for this patient in 6 weeks? I added her to the wait list. Thanks! Melanie Lechuga RN Attempted to contact patient. Went to [employer] but mailbox is full and cannot accept [...] taper Thanks Deric documented in this encounter [facility] 10-20-2024 Telephone encounter Note Attempted again to [...] help make the appt. Melanie Lechuga RN [facility] 10-12-2024 Telephone encounter Note Attempted to contact patient to see if I could help her get an appointment with ID. No answer. Left voicemail asking her to either call the office or send MC message. Melanie Lechuga RN [facility] 10-08-2024 Telephone encounter Note I spoke with [...] successful in finding an appointment on Friday? [facility] 10-08-[address] Martinez please see patients MC message and advise [facility] 10-08-[address] Martinez please see patients message and advise documented in this encounter [facility] 10-05-2024 Telephone encounter Note My chart message sent about appointment [facility] 10-05-2024 Telephone encounter Note 11/15/2024 at [facility] at 1230pm [facility] 10-05-2024 Telephone encounter Note Attempted again to contact patient. No answer. Mailbox full. Sent message with results and recommendations from Dr. Martinez as seen below. Anya - Can you help find an OV times slot for this patient in 6 weeks? I added her to the wait list. Thanks! Melanie Lechuga RN [facility] 10-04-2024 Telephone encounter Note Attempted to contact patient. Went to [employer] but mailbox is full and cannot accept messages at this time. Will try to call again later. Melanie Lechuga RN [facility] 10-01-2024 Telephone encounter Note Melanie, can you [...] involve other areas of the GI tract. T [facility] 10-01-2024 Telephone encounter Note Pt's Skyrizi not [...] of changes to schedule. Pascual Healy RN T [facility] 10-01-2024 Note HNO ID: [id number] Author: PASCUAL HEALY RN Service: ? Author [...] to schedule. Pascual Healy RN [facility] 10-01-2024 History of Present illness Narrative [...] Pascual Healy RN documented in this encounter [facility] 10-01-2024 Miscellaneous Notes Pt's Skyrizi not given [...] Pascual Healy RN documented in this encounter [facility] 10-01-[address] Martinez, Do you have a time frame in which you would like patient to be seen? Melanie Lechuga RN [facility] 10-01-2024 Telephone encounter Note S/p flex sig [...] Skyrizi doses in then taper Thanks Deric [facility] Work Phone: 09-30-2024 Note HNO ID: [id number] Author: EUGENIE PLATA RT(R) Service: Radiology Author [...] PATIENT PRESENTS WITH AN IMPLANTABLE OR ATTACHED LINSEED OIL TEMPERER: No RADIOLOGY DEPARTMENT: CT; Exam(s) Completed: Abdomen/Pelvis PERIPHERAL IV DATA: Inpatient: see LDA documentation SIGNED BY: RT Hayden(R) September 30, 2024 4:11 PM [facility] 09-30-2024 Note HNO ID: [id number] Author: DAVE LOVELACE LSW Service: Care Management Author Type: Brand Sales Manager Type: Care Mgt Initial Assessment Filed: 09/30/2024 10:23 Note Text: CARE MANAGEMENT: ASSESSMENT AND DISCHARGE PLAN SERVICE DATE: September 30, 2024 SERVICE TIME: 10:22 AM PCP: Beck Tee DO, DO Primary Contact: Extended Emergency Contact Information Primary Emergency Contact: Larry Dwyer [facility] Mobile Relation: Significant other Admission Status: Inpatient Insurance Provider: HERMILO [place] Discharge Planning requested by: Per Department Practice Potential Transition Plans Home Advance Directives Current Advance Directive: None Teaching Artist Attempted to Assist with AD Completion: Yes [...] services are not needed at this time. [place] of Choice Explained: [place] of Choice Given: No Reason Not Given: [...] bleeding. She lives at home with her fibaljinder Juarez. Independent at baseline. No DME use. Plan for home no needs. Fiance to transport home. SIGNATURE: LAMBERT Feliz PATIENT NAME: Angela Elam DATE: September 30, 2024 TIME: 10:22 AM CONTACT #: [id number] [facility] 09-30-2024 Note HNO ID: [id number] Author: YURIY PACK MD Service: Hospital Medicine Author Type: Physician Type: Progress Notes Filed: 09/30/2024 14:03 Note Text: DEPARTMENT OF HOSPITAL MEDICINE PROGRESS NOTE SERVICE DATE: 09/30/2024 SERVICE TIME: 1:52 PM Hospital Medicine/Primary Attending: Yuriy Pack MD NIGHT AND WEEKEND COVERAGE: [place] COVERAGE: Days: [phone], please contact via [employer] Nights: - floor: please page Hospitalist night cover [phone] - 4W: please page Hospitalist night cover #[phone] - 5th floor: please page Hospitalist night cover #[phone] - SDU (17:00 - 19:00): Please page #[phone] - SDU (19:00 - 07:00): Please call [facility] at [phone] Subjective INTERVAL HPI: Patient seen and examined. [...] - Await pat (more content not included)... [facility] 09-30-2024 Note HNO ID: [id number] Author: ROSE MCKNIGHT, RN Service: Nursing Author Type: Registered Nurse Type: Nursing Progress Note Filed: 09/30/2024 08:26 Note Text: Other: Off unit for Flex-Sig at this time. [facility] 09-29-2024 Note HNO ID: [id number] Author: MICHELLE WEINBERG RPh Service: Pharmacy Author Type: Pharmacist Type: Plan of Care Filed: 09/29/2024 16:43 Note Text: PHARMACY MEDICATION REVIEW Patient Name: Angela Elam : 1980 The following medications were updated within the DIRECTOR OF FUNDRAISING medication list: Medications ADDED to DIRECTOR OF FUNDRAISING medication list NA Medications CHANGED on DIRECTOR OF FUNDRAISING medication list clonazePAM (KLONOPIN) 0.5 mg tablet - added indication Medications REMOVED from DIRECTOR OF FUNDRAISING medication list desvenlafaxine ER (PRISTIQ) 50 mg [...] medication history: Yes Medication history completed by: Direct Support Professional Caregiver: Elodia Santana, Reject Opener Source of history: Patient: Reliability of source: Appears reliable, clearly identified: Medication name, Medication dose, Medication route, Medication frequency, Timing of last dose, and Indications Medication nonadherence identified: No barriers noted Reconciliation completed: Yes Completed by: Michelle Weinberg RPh All DIRECTOR OF FUNDRAISING medications addressed by LIP Patient interested in Bedside Delivery Services or using OP Pharmacy at discharge? Unable to assess Preferred outpatient pharmacy: [id number] [place] [address] - [address] [phone] Pharmacy [facility] Allergies: No Known Allergies Prior [...] 8 weeks after that. Facility-Administered Medications: None Elodia Santana, Reject Opener 09/29/2024 Pharmacist Addendum: I have reviewed the above information with the pharmacy coordinator and agree with the assessment/plan described. I did not personally speak to the patient/caregiver to confirm the medication history or adherence. Michelle Weinberg [facility] 09/29/2024 4:43 PM Ext: [phone] [facility] 09-29-2024 Note HNO ID: [id number] Author: OBEY RATLIFF APRN.MANAGER REHAB Service: Hospital Medicine Author Type: Nurse Practitioner [...] and CBC in AM SIGNATURE: Obey Ratliff APRN.CNP PATIENT NAME: Angela Elam DATE: September 29, 2024 TIME: 10:07 AM Please use Secure messaging to contact me between 7:30 AM and 5:30 PM. For unanswered messages please page me immediately if urgent or in 30 minutes if nonurgent [facility] 09-28-2024 Telephone encounter Note I did [...] the ER. Patient declined to go to [facility]. Patient said she will go to [facility] or [facility]. Patient said [place] is closer. I did tell her [facility] has colorectal surgeons. Patient has many stressors [...] Support and encouragement given. Grace Hodgson LPN [facility] 09-28-2024 Miscellaneous Notes I did call the [...] the ER. Patient declined to go to [facility]. Patient said she will go to [facility] or [facility]. Patient said [place] is closer. I did tell her [facility] has colorectal surgeons. Patient has many stressors [...] go to the ER. She lives in [place]. If she doesn't need EMS, she should go to [facility] and have someone else drive her since we don't know how much blood she lost since her last CBC 2 weeks ago. [place] is preferred because colorectal surgery can see [...] in the hospital. Dr Martinez please see MC message documented in this encounter [facility] 09-28-2024 Note Addended by: MAK MARTINEZ on: 09/28/2024 05:09 PM Modules accepted: Orders [facility] 09-28-2024 Telephone encounter Note Melanie, can you [...] go to the ER. She lives in [place]. If she doesn't need EMS, she should go to [facility] and have someone else drive her since we don't know how much blood she lost since her last CBC 2 weeks ago. [place] is preferred because colorectal surgery can see [...] this, she should be in the hospital. [facility] 09-28-[address] Martinez please see MC message [facility] 09-27-2024 Telephone encounter Note Images from the original note were not included. Yuli James RPh [facility] 21 hour ago (9:49 AM) Thanks for letting us know Melanie! We will make sure we submit PA before her third infusion dose. Thanks! Yuli [facility] 09-27-2024 Miscellaneous Notes Images from the original note were not included. Yuli James RPh [facility] 21 hour ago (9:49 AM) Thanks for letting us know Melanie! We will make sure we submit PA before her third infusion dose. Thanks! Yuli Yuli James [facility] 09/06/24 6:08 PM [facility] received prescription(s) for Skyrizi from Dr. Martinez's office. Benefits investigation was conducted, indicating that a prior authorization is required by patient's insurance plan with [employer]. Encounter will be updated once prior authorization has been submitted by [facility]. Pt has not yet received infusion doses. Yuli James PharmD Clinical Pharmacist, [employer] [facility] ; Pool: P [facility] Pool #: [id number] Hi Yuli, I just wanted to let you know that the patient will be getting her infusions on 10/01, 10/29, and 11/26. Will be due to start injections (OBI) on 11/24. Thanks! Melanie Lechuga RN documented in this encounter [facility] 09-27-2024 Telephone encounter Note Yuli James [facility] 09/06/24 6:08 PM [facility] received prescription(s) for Skyrizi from Dr. Martinez's office. Benefits investigation was conducted, indicating that a prior authorization is required by patient's insurance plan with [employer]. Encounter will be updated once prior authorization has been submitted by [facility]. Pt has not yet received infusion doses. Yuli James PharmD Clinical Pharmacist, [facility] ; Pool: P [facility] Pool #: [id number] Hi Yuli, I just wanted to let you know that the patient will be getting her infusions on 10/01, 10/29, and 11/26. Will be due to start injections (OBI) on 11/24. Thanks! Melanie Lechuga RN [facility] 09-21-2024 Telephone encounter Note VM left for pt with MM message below. Encouraged to call with any questions, needs or concerns. Follow up appointment dates and times provided. Deric Inman RN [facility] 09-21-2024 Miscellaneous Notes VM left for pt [...] back as scheduled. documented in this encounter [facility] 09-21-2024 Telephone encounter Note ----- Message from Dilma Montes PA-C sent at 09/21/2024 10:58 AM EDT ----- Please call and inform the patient that her anemia work up just confirmed iron deficiency. No other causes for anemia. Proceed with IV iron as planned and see me back as scheduled. [facility] 09-17-2024 History of Present illness Narrative [facility] CLINICAL CONSULTATION NOTE Hematologic Oncology and [...] infusions: Yes; GI doctor Dr. Martinez at [facility] ordered last time in 2021 and received [...] The patient's questions were answered to satisfaction. LUZ Moeller-S2 The patient was seen and examined by me with the student. The student's note was reviewed and modified as appropriate. ANGELA CaicedoC I spent a total of 30 minutes on the date of the service which included preparing to see the patient, vske-cw-otmi patient care, completing clinical documentation, obtaining and/or reviewing separately obtained history, performing a medically appropriate examination, counseling and educating the patient/family/caregiver, ordering medications, tests, or procedures, communicating with other HCPs (not separately reported), independently interpreting results (not separately reported), communicating results to the patient/family/caregiver, and care coordination (not separately reported). CC: Beck Tee, [address] [place] [address] documented in this encounter [facility] 09-17-2024 Note HNO ID: [id number] Author: DILMA MONTES PA-C Service: ? Author Type: Physician Skirt Trimmer Type: Progress Notes Filed: 09/17/2024 15:49 Note Text: [facility] CLINICAL CONSULTATION NOTE Hematologic Oncology and [...] 44 year old woman presenting here to [facility] care. Patient's iron deficiency anemia was previously [...] infusions: Yes; GI doctor Dr. Martinez at [facility] ordered last time in 2021 and received [...] Negati (more content not included)... [facility] 09-17-2024 Telephone encounter Note Received the fax from [employer] with PA approval for [employer]. Case # [id number] Auth # [id number] Will send fax for scanning. Melanie Lechuga RN [facility] 09-17-2024 Miscellaneous Notes Received the fax from [employer] with PA approval for Daniel. Case # [id number] Auth # [id number] Will send fax for scanning. Melanie Lechuga RN Called the number for the Pharmcy Department, . Spoke to Ursula, Customer Lead Php Developer. Explained that I have sent an appeal [...] department. She transferred me to Provider Services [phone]. This appeared to take me to the same prompt that I started when I originally called. Hung up and called , option 2, then option 4. Spoke to Al. States it is out of their scope. Needs to transfer me to appeals. States she doesn't have the direct phone number. Transferred call. Prompt stated thank you for calling 'Carlton Espino' Spoke to Lauren. Advised that original fax for appeal was sent on 09/09/24 and marked urgent. Second fax was sent on 09/13/24 and marked as urgent. Still have not heard back. States she is showing that on Sep 14, the denial was overturned. Letter was sent on . Asked Lauren to fax the letter to the [facility] office at [phone]. Should receive fax by the end of the day. Melanie Lechuga RN Total time instructional media services technician: 40 minutes. Called the number for the Pharmcy Department, . Spoke to Juanis. Asked why a P2P needs to be completed when a letter of medical necessity and clinical documentation was sent on . Provided the following information: Case # for appeal: [id number] Juanis reviewed the information they had which [...] Juanis said she would transfer call to Utilization Management ([phone]). States the need to leave voicemail and [...] to call for peer to peer. on [phone] but from our side Im sending the [...] Newell Email Sent (Date & Time): 09/09/24 8:02 AM Reason for Review: This request is denied for [id number] Looked up [facility] Monoclonal Antibodies to Interleukin-23 CC-0050. It stated [...] can fax further information and/or clinicals to [phone]. Auth #: [id number] Case # for appeal: [id number] Need to elke clinicals as urgent and we will receive a decision within 72 hours. Phone number for peer to peer is [phone], option 2. Melanie Lechuga RN Order signed. [...] for patient to return call. Will send MC message as well. Melanie Lechuga RN Dr Martinez see patients MC reply Melanie, now that we have her [...] is started. These are her labs from [facility]. You ordered Hepatic Fx panel and CBC (ABNORMAL) CBC and differential (08/30/2024 4:31 PM EDT) Lab Results - (ABNORMAL) CBC and differential (08/30/2024 4:31 PM EDT) Pathologist [facility] [place] WBC 9.5 3.4 - 10.8 x10E3/uL [facility] [...] Comprehensive metabolic panel (08/30/2024 4:31 PM EDT) Pathologist [facility] [place] Glucose CANCELED mg/dL [facility] Comment: Test not [...] Iron and TIBC (08/30/2024 4:31 PM EDT) [facility] Iron Bind.Cap.(TIBC) 396 250 - 450 ug/dL [facility] UIBC 381 131 - 425 ug/dL [facility] Iron 15 (L) 27 - 159 ug/dL [facility] Iron Saturation 4 (LL) 15 - 55 % [facility] (ABNORMAL) Ferritin (08/30/2024 4:31 PM EDT) Lab Results - (ABNORMAL) Ferritin (08/30/2024 4:31 PM EDT) [facility] Ferritin 4 (L) 15 - 150 ng/mL [facility] Vitamin B12 (08/30/2024 4:31 PM EDT) Lab Results - Vitamin B12 (08/30/2024 4:31 PM EDT) Vitamin B12 529 232 - 1,245 pg/mL [facility] Back to top of Lab Results Folate (08/30/2024 4:31 PM EDT) Lab Results - Folate (08/30/2024 4:31 PM EDT) Folate 12.6 >3.0 ng/mL [facility] Comment: A serum folate concentration of less than 3.1 ng/mL is considered to represent clinical deficiency. documented in this encounter [facility] 09-17-2024 Telephone encounter Note Called the number for the Pharmcy Department, . Spoke to Ursula, Customer Lead Php Developer. Explained that I have sent an appeal [...] department. She transferred me to Provider Services [phone]. This appeared to take me to the [...] Lauren to fax the letter to the [facility] [place] office at [phone]. Should receive fax by the end of the day. Melanie Lechuga RN Total time instructional media services technician: 40 minutes. [facility] 09-13-2024 Telephone encounter Note Called the number for the Pharmcy Department, . Spoke to Juanis. Asked why a P2P needs to be completed when a letter of medical necessity and clinical documentation was sent on . Provided the following information: Case # for appeal: [id number] Juanis reviewed the information they had which [...] Juanis said she would transfer call to [facility] ([phone]). States the need to leave voicemail and they will return call. Left voicemail and refaxed letter of medical necessity and clinical information. Also faxed fax confirmation from 09/09/24. Again received confirmation fax went through. Will await determination. Melanie Lechuga RN T [facility] 09-13-2024 Telephone encounter Note Images from the [...] to call for peer to peer. on [phone] but from our side Im sending the clinicals again The following was also charted in a telephone encounter: === PHARMACY TEAM ==== PEER TO PEER/APPEAL REQUESTED PROVIDER TO COMPLETE [facility] 09-13-2024 Telephone encounter Note Images from the original note were not included. === PHARMACY TEAM ==== PEER TO PEER/APPEAL REQUESTED PROVIDER TO COMPLETE [facility] 09-13-2024 Miscellaneous Notes Images from the original note were not included. === PHARMACY TEAM ==== PEER TO PEER/APPEAL REQUESTED PROVIDER TO COMPLETE documented in this encounter [facility] 09-10-2024 Telephone encounter Note Order signed. [facility] 09-10-2024 Miscellaneous Notes Order signed. Dr Martinez please sign if you agree Requested Prescriptions Pending Prescriptions Disp Refills predniSONE (DELTASONE) 10 mg tablet 60 tablet 4 Sig: Take 2 tablets by mouth once daily. Melanie please see patients MC message and advise on prior auth for Skyrizi documented in this encounter [facility] 09-10-[address] Martinez please sign if you agree Requested Prescriptions Pending Prescriptions Disp Refills predniSONE (DELTASONE) 10 mg tablet 60 tablet 4 Sig: Take 2 tablets by mouth once daily. Melanie please see patients MC message and advise on prior auth for Skyrizi [facility] 09-09-2024 Telephone encounter Note Letter drafted and faxed along with OV note from 05/21/24. Melanie Lechuga RN [facility] 09-09-2024 Telephone encounter Note Images from the [...] This request is denied for J2327 Looked [facility] Monoclonal Antibodies to Interleukin-23 CC-0050. It stated [...] for approval when UC was the diagnosis. [facility] started appeal. States we can fax further information and/or clinicals to [phone]. Auth #: [id number] Case # for appeal: [id number] Need to elke clinicals as urgent and we will receive a decision within 72 hours. Phone number for peer to peer is [phone], option 2. Melanie Lechuga RN [facility] 09-06-2024 History of Present illness Narrative [facility] received prescription(s) for Skyrizi from Dr. Martinez's office. Benefits investigation was conducted, indicating that a prior authorization is required by patient's insurance plan with [employer]. Encounter will be updated once prior authorization has been submitted by [facility]. Pt has not yet received infusion doses. Yuli James PharmD Clinical Pharmacist, [employer] [facility] ; Pool: [facility] Pool #: [id number] documented in this encounter [facility] 09-06-2024 Note HNO ID: [id number] Author: YULI JAMES RPh Service: ? Author Type: Pharmacist Type: Progress Notes Filed: 12/14/2024 12:59 Note Text: Skyrizi IV doses received on: Infusion doses completed: 10/05/24, 11/05/24, and 12/03/24. First subQ will be due 12/31/24 Rx has been profiled at [facility] (confirmed $0 copay) and patient will be contacted around 12/22/24 to set up first Skyrizi OBI shipment. Yuli James PharmD Clinical Pharmacist, [facility] ; Pool: P [facility] Pool #: [id number] [facility] 09-06-2024 Note HNO ID: [id number] Author: MICAELA OZUNA RPh Service: ? Author Type: Pharmacist Type: Progress Notes Filed: 11/25/2024 15:11 Note Text: Skyrizi OBI PA was initiated and pending review. Plan Name: [facility] Plan Agent/Garcia: [id number] / [id number] Timeline: Urgent Silke Ozuna PharmD Clinical Pharmacist, [employer] [facility] ; Pool: P [facility] Pool #: [id number] [facility] 09-06-2024 Note HNO ID: [id number] Author: YULI JAMES RPh Service: ? Author Type: Pharmacist Type: Progress Notes Filed: 09/06/2024 18:08 Note Text: [facility] received prescription(s) for Skyrizi from Dr. Martinez's office. Benefits investigation was conducted, indicating that a prior authorization is required by patient's insurance plan with [facility]. Encounter will be updated once prior authorization has been submitted by [facility]. Pt has not yet received infusion doses. Yuli Jacob, PharmD Clinical Pharmacist, [employer] [facility] ; Pool: Carmen [facility] Pool #: [id number] [facility] 09-06-2024 Note HNO ID: [id number] Author: YULI JAMES [facility] Service: ? Author Type: Pharmacist Type: Progress Notes Filed: 12/22/2024 11:35 Note Text: [facility] received prescription(s) for Skyrizi OBI from Dr. Martinez's office. Benefits investigation was conducted, indicating that a prior authorization is required. LUZ was approved with details listed below: Plan [...] pancolitis without complication (HCC) 03/31/2023 Melania Currie APRN.MANAGER REHAB No Vapes nicotine containing substance 03/31/2023 Melania Currie APRN.MANAGER REHAB No Migraines 03/31/2023 Melania Currie APRN.MANAGER REHAB No Chronic neck pain 03/31/2023 Melania Currie APRN.MANAGER REHAB No C. difficile colitis 03/31/2023 Melania Currie APRN.MANAGER REHAB No Nicotine use disorder, F17.2 03/31/2023 Yuriy Pack MD No Iron deficiency anemia due to chronic blood loss 12/25/2021 Jaxon Guzmán MD No Anxiety 05/19/2020 Melania Currie APRN.MANAGER REHAB No Direct Support Professional Caregiver Assessment Patient confirmed: Yes Med/dose confirmed: Yes Supplies needed: Alcohol swabs, Sharps container, Welcome packet, Bandages Missed doses: No Estimated days supply on hand: 9 Next cycle/dose due: 12/31/24 Copay amount: 0 Delivery method: FedEx Signature required: Waived on patient request Delivery address: [address] [place] [address] [place] [address] Delivery date: 12/28/24 Questions or concerns for the pharmacist?: Yes Patient questions/concerns: Medication cost, Medication dose, Medication route, Medication storage, Side effects, Delivery Did you have any side effects believed to be related to this medication, that resulted in hospitalization?: No [facility] SPECIALTY CLINICAL ASSESSMENT - INFLAMMATORY CONDITIONS [...] 1 (more content not included)... [facility] 09-06-2024 Note HNO ID: [id number] Author: YULI JAMES [facility] Service: ? Author Type: Pharmacist Type: Progress [...] CCSP to submit PA on/around 11/01/24. Yuli James, PharmWilla Clinical Pharmacist, [employer] [facility] ; Pool: P [facility] Pool #: [id number] [facility] 09-06-2024 Note HNO ID: [id number] Author: ?, ?, ? Service: ? Author Type: ? Type: Progress Notes Filed: 11/01/2024 08:28 Note Text: Skyrizi OBI PA was initiated and pending review. Plan Name: Tevin [employer] Garcia: [id number] Ursula Lona, [facility] [phone] [facility] 09-06-2024 Note HNO ID: [id number] Author: MICAELA OZUNA RPh Service: ? Author Type: Pharmacist Type: Progress Notes Filed: 12/14/2024 08:35 Note Text: Skyrizi OBI PA was approved with details listed below. Plan Name: Tevin Approval Dates: 12/14/24 - 12/13/25 Prescriptions will now be processed through [facility] Special[facility] for determination of next steps. Silke Ozuna, PharmD Clinical Pharmacist, [employer] [facility] ; Pool: P [facility] Pool #: [id number] [facility] 09-06-2024 Telephone encounter Note Order signed. Thank you T [facility] 09-02-[address] Martinez, Can you please review and sign pending order for Skyrizi OBI to start at week 12? Thanks! Melanie Lechuga RN [facility] 09-02-2024 Telephone encounter Note Attempted to contact patient. No answer. Left voicemail advising that I was calling to see where she wanted to have her infusions done at. Left office phone number for patient to return call. Will send message as well. Melanie Lechuga RN [facility] 09-02-[address] Martinez see patients MC reply [facility] 09-01-2024 Telephone encounter Note Melanie, now that [...] her 6 months after treatment is started. [facility] 09-01-2024 Telephone encounter Note These are her labs from [facility]. You ordered Hepatic Fx panel and [...] Comprehensive metabolic panel (08/30/2024 4:31 PM EDT) [facility] Glucose CANCELED mg/dL [facility] Comment: Test not [...] Iron and TIBC (08/30/2024 4:31 PM EDT) [facility] Iron Bind.Cap.(TIBC) 396 250 - 450 ug/dL [facility] UIBC 381 131 - 425 ug/dL [facility] Iron 15 (L) 27 - 159 ug/dL [facility] Iron Saturation 4 (LL) 15 - 55 % [facility] (ABNORMAL) Ferritin (08/30/2024 4:31 PM EDT) Lab Results - (ABNORMAL) Ferritin (08/30/2024 4:31 PM EDT) Ferritin 4 (L) 15 - 150 ng/mL [facility] Vitamin B12 (08/30/2024 4:31 PM EDT) Lab Results - Vitamin B12 (08/30/2024 4:31 PM EDT) Vitamin B12 529 232 - 1,245 pg/mL [facility] Back to top of Lab Results Folate (08/30/2024 4:31 PM EDT) Lab Results - Folate (08/30/2024 4:31 PM EDT) Folate 12.6 >3.0 ng/mL [facility] Comment: A serum folate concentration of less than 3.1 ng/mL is considered to represent clinical deficiency. [facility] Work Phone: 08-20-2024 History of Present illness [...] Diagnosis Date ADHD (attention deficit hyperactivity disorder) ([facility]/HCC) Age 9 Anemia 5 years ago Anxiety [...] on file Stress: Stress Concern Present (08/13/2023) [employer] [place] [employer] - Occupational Stress Questionnaire Feeling of Stress : Rather much Social Connections: Moderately Integrated (08/13/2023) Social Connection and Isolation Panel [NHANES] Frequency of Communication with Friends and Family: More than three times a week Frequency of Social Gatherings with Friends and Family: Patient declined Attends Scientologist Services: 1 to 4 times per year [...] Disp: , Rfl: documented in this encounter [facility] 05-21-2024 Instructions Mak Martinez MD - 05/21/2024 [...] health significantly. See pre-test instructions below. Radiology [phone] Continue to minimize medication like Motrin as [...] do not hesitate to send me a [employer] message or call the [facility] at [phone] to route me a message. If you [...] usual activities immediately. documented in this encounter [facility] 05-21-2024 History of Present illness Narrative VIRTUAL VISIT I have communicated my name and active licensure. The patient's identity and physical location were verified at the time of this visit. Either the patient or their legal telecommunications sales representative has been informed of the [...] Mail. Patient location at time of call: [place] Callback number: [phone] Connected at: 0912 Additional encounter participants and [...] lbs afterwards. Her daughters live in the [facility], but she doesn't have daily help at [...] herself having to take care of her infant niece and had concerns about post-operative recovery [...] Gastroenterology and Hepatology Digestive Disease and Surgery [place] This note was partially generated using Blurr voice recognition system, and there may be some incorrect words, spellings, and punctuation that were not noted in checking the note before saving. documented in this encounter [facility] 05-21-2024 Note HNO ID: [id number] Author: MELANIE LECHUGA RN Service: ? Author Type: Physician Type: Progress Notes Filed: 09/09/2024 13:40 Note Text: VIRTUAL VISIT I have communicated my name and active licensure. The patient's identity and physical location were verified at the time of this visit. Either the patient or their legal telecommunications sales representative has been informed of the [...] at time of call: Home Callback number: [phone] Connected at: 0912 Additional encounter participants and [...] lbs afterwards. Her daughters live in the [facility], but she doesn't have daily help at [...] Q (more content not included)... [facility] 04-12-2024 Telephone encounter Note 3rd attempt Left message to call office. 04/12/2024 11:09 AM [facility] 04-12-2024 Miscellaneous Notes 3rd attempt Left message to call office. 04/12/2024 11:09 AM 2nd attempt Left message to call office. 04/09/2024 11:41 AM Adri Rea 1st attempt Left message to call office. 04/08/2024 12:51 PM Adri Rea OK to schedule for VV within the next 2 months to discuss next steps and ideal timing of surgery. Kaity Benntet Called and spoke to patient. Patient states [...] Dr. Martinez, please advise. Melanie Lechuga RN Melanie, can you please call and discuss [...] scheduled 1) Ulcerative pancolitis Duration of symptoms: 2018 [...] mouth once daily. documented in this encounter [facility] 04-09-2024 Telephone encounter Note 2nd attempt Left message to call office. 04/09/2024 11:41 AM Adri Rea [facility] 04-08-2024 Telephone encounter Note 1st attempt Left message to call office. 04/08/2024 12:51 PM Adri Rea [facility] 04-07-2024 Telephone encounter Note OK to schedule for VV within the next 2 months to discuss next steps and ideal timing of surgery. Kaity Bennett [facility] 04-07-2024 Telephone encounter Note Called and spoke [...] Dr. Martinez, please advise. Melanie Lechuga RN T [facility] 04-06-2024 Telephone encounter Note Melanie, can you [...] and even colon cancer in the future. [facility] 04-06-[address] Martinez- [...] Take 1 tablet by mouth once daily. [facility] 02-09-2024 Miscellaneous Notes Looks as if pt [...] mouth once daily. documented in this encounter [facility] 01-08-2024 Nurse Note Education packet given for [...] at this time. documented in this encounter [facility] 01-08-2024 History of Present illness Narrative COLORECTAL SURGERY January 08, 2024 Angela Elam This consult was requested by Dr. Mak Martinez and my final recommendations will be communicated to the requesting health care provider by way of the shared medical record for internal providers or letter via the [place] [place] [employer] for external providers. Chief Complaint: [...] visual disturbances). She was recently hospitalized at [facility] between 03/30-04/05 for bloody diarrhea. Although she [...] obtained. View External Procedures - Colonoscopy [ID [id number]] Pathology: -chronic active colitis with ulcer Scan on 11/19/2021 9:18 AM by Provider, External, PAQuynhC: Pathology PAST MEDICAL HISTORY Diagnosis Date Blood [...] medical complications of surgery including DVT/PE, PNA, GA, stroke, and . The patient understands these [...] which included preparing to see the patient, [id number] patient care, completing clinical documentation, obtaining and/or reviewing separately obtained history, performing a medically appropriate examination, counseling and educating the patient/family/caregiver, ordering medications, tests, or procedures, communicating with other HCPs (not separately reported), independently interpreting results (not separately reported), communicating results to the patient/family/caregiver, and care coordination (not separately reported). Sonia Jc MD Colorectal Surgery documented in this encounter [facility] 12-16-2023 Miscellaneous Notes === PHARMACY TEAM ==== APPROVAL RECEIVED Benefit Type: Medical Servicing Location Tax ID: [place] [id number] Main Insurance Name: [employer] Authorization received via fax Drug Name(s) & HCPCS Code(s): Boyd Q5121 Approval Date Range: 12/10/2023 to 05/26/2024 Approval #: [id number] Dose & Frequency: 900 mg q 8 [...] and adding Imuran. States she uses [facility] in [place]. Patient states she feels that for the [...] steroids or not? documented in this encounter [facility] 04-07-2023 Instructions Mak Martinez MD - 04/07/2023 [...] taper the steroid, please send me a [employer]visor message right away with an update. Please make a follow up visit with me in 4-6 months. At this time, I would like to check your stool testing, infliximab drug levels / antibodies and order your follow up colonoscopy If you have any questions about the above treatment plan, please do not hesitate to send me a [employer]visor message or call the [facility] at [phone] to route me a message. documented in this encounter [facility] 04-07-2023 History and physical note FOLLOW UP OFFICE VISIT REASONS FOR VISIT: Ulcerative pancolitis C. Diff colitis PATIENT SUMMARY: Angela Elam is a 42 year old female with a history of tobacco use and C. Diff colitis (diagnosed and treated in 2019) who presents to the GI clinic to establish care for ulcerative pancolitis. She lives in the [facility] and is in clinic today with her mother. She was diagnosed with UC in 2019 and has been on mesalamine, budesonide, Humira (didn't work, but only had 3 injections), Entyvio x 1 year (partial control), Stelara every 6 weeks and Zemposia (intolerable d/t visual disturbances, stopped 1 month ago). She isn't sure why these medications were switched/stopped. She was recently hospitalized at [place] between 03/30-04/05 for bloody diarrhea. She was averaging 15-20 BMs/day. C. Diff PCR was positive, but toxin was negative. Fecal madeleine was >3K. She was seen by [facility]. Flex sig showed severe pseudomembranous colitis. [...] ulcerative pancolitis. She was recently hospitalized at [place] between 03/30-04/05 for bloody diarrhea. Although she [...] are up-to-date. Patient wishes to infuse around [place]. --Remicade induction at 0, 6, and 8 [...] patient was advised to send me a [employer] message right away. 2) Recurrent C. Diff colitis Diagnosed and treated in 2019. Diagnosed again most recently last month. Completing an oral vancomycin taper. --Finish oral vancomycin prescription Follow up in 4-6 months Mak Martinez MD Associate Staff, Department of Gastroenterology and Hepatology Digestive Disease and Surgery [place] documented in this encounter [facility] 07-31-2022 Evaluation note Encounter Date Diagnosis Assessment Notes Jul, High risk medication use (ICD-10 - Z79.899) Jul, Ulcerative colitis (ICD-10 - K51.90) Neighborhoods Other 07-19-2022 Miscellaneous Notes* Telephone Encounter - Gini Zuniga Sec - 06/18/2022 12:52 PM EDT Called to reschedule today's phone appt with Dr Guzmán. No lab results to discuss. Asked her to call our office back to reschedule lab appt and phone call a few days later with Dr Guzmán. Thanks for your help. [facility]* Encounter Date Diagnosis Assessment Notes Treatment Notes Treatment Clinical Notes May, Ulcerative pancolitis with complication (ICD-10 - K51.019) May, High risk medication use (ICD-10 - Z79.899) Neighborhoods Other 10-26-2021 Evaluation note* Encounter Date Diagnosis Assessment Notes Treatment Notes Treatment Clinical Notes Aug, Ulcerative pancolitis with complication (ICD-10 - K51.019) CONTINUE BUDESONIDE 3 CAPSULES DAILY INCREASE LOPERAMIDE 2 TABLETS THREE TIMES A DAY PROCEED WITH COLONOSCOPY SCHEDULED Aug, Iron deficiency anemia due to chronic blood loss (ICD-10 - D50.0) Neighborhoods Other 10-12-2021 Evaluation note* Encounter Date Diagnosis [...] symptoms worsen Follow up in 2 weeks Neighborhoods Other Evpbjqdpiu note* Diagnosis Iron deficiency anemia due to chronic blood loss- Primary Iron deficiency anemia secondary to blood loss (chronic) documented in this encounter [facility] noteNo InformationNort LocalOn Other Evalugfoue note* Diagnosis Iron deficiency anemia due to chronic blood loss- Primary Iron deficiency anemia secondary to blood loss (chronic) documented in this encounter [facility] note* Diagnosis Appointment canceled by hospital- Primary Procedure not carried out for other reasons documented in this encounter [facility] noteNo assessment information [facility] Work Phone: Evaluation note* Diagnosis Ulcerative pancolitis with complication (HCC)- Primary Recurrent Clostridioides difficile infection documented in this encounter [facility] note* Diagnosis Ulcerative pancolitis with complication (HCC)- Primary [facility] Diagnosis Ulcerative pancolitis with complication (HCC)- Primary documented in this encounter [facility] note* Diagnosis Ulcerative colitis with complication, unspecified location (HCC)- Primary [facility] Diagnosis 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 care registered nurse (current) use of immunomodulator- Primary [facility] Diagnosis Onset Date Resolution Status Josué [facility] Work Phone: Evaluation note* Diagnosis Ulcerative pancolitis without complication (HCC)- Primary 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 care registered nurse current use of systemic steroids Encounter for long-term (current) use of steroids [facility]* Diagnosis Anxiety Anxiety state, unspecified [facility] Ulcerative pancolitis without complication (HCC)- Primary [facility] Diagnosis Ulcerative pancolitis without complication (HCC) documented [facility]* Diagnosis Ulcerative pancolitis without complication (HCC)- Primary [facility]* Diagnosis Iron deficiency anemia due to chronic blood loss- Primary Iron deficiency anemia secondary to blood loss (chronic) Malaise and fatigue Other malaise and fatigue [facility] Diagnosis Iron deficiency anemia due to chronic blood loss- Primary Iron deficiency anemia secondary to blood loss (chronic) Ulcerative pancolitis without complication (HCC) documented [facility] Diagnosis Ulcerative pancolitis (HCC)- Primary [place] ulcerative (chronic) colitis Bloody diarrhea Diarrhea [facility]* Diagnosis Iron deficiency anemia due to chronic blood loss- Primary Iron deficiency anemia secondary to blood loss (chronic) Ulcerative pancolitis without complication (HCC) documented [facility] this [facility] Diagnosis Ulcerative pancolitis without complication (HCC)- Primary Iron deficiency anemia due to chronic blood loss Iron deficiency anemia secondary to blood loss (chronic) documented [facility] this [facility]* Diagnosis Anxiety Anxiety state, unspecified documented in this encounter [facility]* 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 [facility] this encounter [facility] Diagnosis Ulcerative pancolitis with complication (HCC)- Primary [facility]* Diagnosis Ulcerative pancolitis without complication (HCC)- Primary [facility]* Diagnosis CMV colitis (HCC) Cytomegaloviral disease [facility] Diagnosis Migraine without aura and without status migrainosus, not intractable (CMS/HCC) Cervicalgia Anxiety Anxiety state, unspecified documented in this encounter [facility]* Diagnosis Anxiety- Primary Anxiety state, [...] presumed infectious origin [facility]* Diagnosis Iron deficiency anemia due to chronic blood loss- Primary Iron deficiency anemia secondary to blood loss (chronic) Ulcerative pancolitis without complication (HCC) [facility] Diagnosis Ulcerative pancolitis without complication (HCC)- Primary retirement (current) use of immunomodulator [facility] Diagnosis Iron deficiency anemia due to chronic blood loss- Primary Iron deficiency anemia secondary to blood loss (chronic) [facility] Diagnosis CMV colitis (HCC) Cytomegaloviral disease [facility] Diagnosis Migraine without aura and without status migrainosus, not intractable (CMS/HCC) Cervicalgia documented in this encounter [facility]* Diagnosis Anxiety Anxiety state, unspecified [facility]* Diagnosis Anxiety- Primary Anxiety state, unspecified Psychophysiological insomnia Persistent disorder of initiating or maintaining sleep documented in this encounter [facility]* Diagnosis Anxiety Anxiety state, unspecified documented in this encounter [facility]* Diagnosis Well woman exam with routine gynecological exam Routine gynecological examination Encounter for screening mammogram for malignant neoplasm of breast documented in this encounter [facility]* Diagnosis Ulcerative pancolitis without complication (HCC)- Primary [facility] Diagnosis Anxiety Anxiety state, unspecified documented in this encounter [facility]* Diagnosis IBD (inflammatory bowel disease)- Primary Other and unspecified noninfectious gastroenteritis and colitis Constipation, unspecified constipation type History of CMV Personal history of other infectious and parasitic disease History of Clostridioides difficile infection [facility] Diagnosis Crohn's disease of large intestine with complication (HCC) Regional enteritis of large intestine [facility] N[facility]ative - Reported* Type Description Date Medical History rectal bleeding Medical History colitis Surgical History cyst removed from right arm Surgical History removed cyst from urethra Surgical History Tubal ligation Surgical History Leep procedure Surgical History Colonoscopy 01/2019 Neighborhoods Other ReTriptrotting for referral (narrative)* Diagnostic Procedure Only (Routine) - Pending Review Specialty Diagnoses / Procedures Referred By Jenifer jara Referred To Contact XR IMAGING Diagnoses retirement current use of systemic steroids Procedures [place] [address] [place] [id number] Xr Imaging [id number] Referral ID Status Reason Start Date Expiration Date Visits Requested Visits Authorized [id number] Pending Review Auto-Generat ed Referral 05/21/2024 06/20/2025 1 1 [facility] for referral (narrative)* Outpatient Procedure (Routine) - Closed Specialty Diagnoses / Procedures Referred By Jenifer jara Referred To Contact [facility] Diagnoses CMV colitis (HCC) Procedures SIGMOIDOSCOPY SIGMOIDOSCOPY FLX DX W/COLLJ SPE[place] BR/[place] [address] [place] [address] [address] Referral ID Status Reason Start Date Expiration Date V isits Requested Visits Authorized [id number] Closed Auto-Generate d Referral 11/15/2024 11/15/2025 1 1 [facility] for visit Narrative* Outpatient Procedure (Routine) - Closed Specialty Diagnoses / Procedures Referred By Jenifer jara Referred To Contact [facility] Diagnoses CMV colitis (HCC) Procedures SIGMOIDOSCOPY SIGMOIDOSCOPY FLX DX W/COLLJ [place] BR/[place] [address] [place] [address] [place] [id number] Referral ID Status Reason Start Date Expiration Date V isits Requested Visits Authorized [id number] Closed Auto-Generate d Referral 11/15/2024 11/15/2025 1 1 [facility]* MRI/CT (Routine) - Closed Specialty Diagnoses / Procedures Referred By Jenifer t Referred To Contact CT IMAGING Diagnoses Crohn's disease of large intestine with complication (HCC) Procedures CT ENTEROGRAPHY W IVCON CT ABD & PELVIS W/[place] [address] [place] [address] Phone: tel: [place] [phone] Referral ID Status Reason Start Date Expiration Date V isits Requested Visits Authorized [id number] Closed Auto-Generate d Referral 12/23/2024 01/22/2026 1 1 [facility] Summary Purpose Family History No Family History Records Found Relationship Condition Age at Onset Recorded Date/T hilda father Gastrointestinal hemorrhage Unknown Relationship Condition Age at Onset Recorded Date/T hilda father Gastrointestinal hemorrhage Unknown father Hypertension Unknown Advance Directives No Advanced Directives Records Found Advance Directive Response Recorded Date/ Time Advance Directives No February 28, 019 2:54pm Advance Directive Response Recorded Date/ Time Advance Directives No February 28, 019 3:54pm Date Activated Date Inactivated Comments [...] 650 mg, ORAL, ONCE, 1 dose, On 05/05/23 at 1430, If ordered PRN for pain, [...] Administer with 0.2 micron filter., Medication Substitution: [facility] preferred product has been replaced with the [...] 1430, Total Volume: = 250 mL EXP: 14206/03/23 Administer with 0.2 micron filter., Medication Substitution: [facility] preferred product has been replaced with the [...] Administer with 0.2 micron filter., Medication Substitution: [facility] preferred product has been replaced with the insurance mandated product New Bag/Syringe/Bottle 09/26/2023 2:40 PM EDT 477 mg 200 mL/hr Reason for Referral Specialty Diagnoses / Procedures Referred By Contac t Referred To Contact Infectious Diseases Diagnoses CMV colitis (HCC) Procedures CONSULT TO INFECTIOUS DISEASES OFFICE/OUTPATIENT [facility] 60 [place] [address] [place] [address] Referral ID Status Reason Start Date Expiration Date Visits Requested Visits Authorized [id number] Authorized PCP Requested Referral 4 10/08/2025 1 1 Additional Source Comments Source Comments (unrecognize d section and content) In the event this informatio n is protected by the Federal Confidentiality of Alcohol and Drug Abuse Patient Records regulations: The Federal rules restrict any use of the information to criminally investigate or prosecute any alcohol or drug abuse patient.[facility] the event this information is protected by the Federal Confidentiality of Alcohol and Drug Abuse Patient Records regulations: The Federal rules restrict any use of the information to criminally investigate or prosecute any alcohol or drug abuse patient.[facility] the event this information is protected by the Federal Confidentiality of Alcohol and Drug Abuse Patient Records regulations: The Federal rules restrict any use of the information to criminally investigate or prosecute any alcohol or drug abuse patient.[facility] the event this information is protected by the Federal Confidentiality of Alcohol and Drug Abuse Patient Records regulations: The Federal rules restrict any use of the information to criminally investigate or prosecute any alcohol or drug abuse patient.[facility] Center[facility] the event this information is protected by the Federal Confidentiality of Alcohol and Drug Abuse Patient Records regulations: The Federal rules restrict any use of the information to criminally investigate or prosecute any alcohol or drug abuse patient.[facility] Center[facility] the event this information is protected by the Federal Confidentiality of Alcohol and Drug Abuse Patient Records regulations: The Federal rules restrict any use of the information to criminally investigate or prosecute any alcohol or drug abuse patient.[facility] the event this information is protected by the Federal Confidentiality of Alcohol and Drug Abuse Patient Records regulations: The Federal rules restrict any use of the information to criminally investigate or prosecute any alcohol or drug abuse patient.[facility] the event this information is protected by the Federal Confidentiality of Alcohol and Drug Abuse Patient Records regulations: The Federal rules restrict any use of the information to criminally investigate or prosecute any alcohol or drug abuse patient.[facility] the event this information is protected by the Federal Confidentiality of Alcohol and Drug Abuse Patient Records regulations: The Federal rules restrict any use of the information to criminally investigate or prosecute any alcohol or drug abuse patient.[facility] the event this information is protected by the Federal Confidentiality of Alcohol and Drug Abuse Patient Records regulations: The Federal rules restrict any use of the information to criminally investigate or prosecute any alcohol or drug abuse patient.[facility]In the event this information is protected by the Federal Confidentiality of Alcohol and Drug Abuse Patient Records regulations: The Federal rules restrict any use of the information to criminally investigate or prosecute any alcohol or drug abuse patient.[facility]In the event this information is protected by the Federal Confidentiality of Alcohol and Drug Abuse Patient Records regulations: The Federal rules restrict any use of the information to criminally investigate or prosecute any alcohol or drug abuse patient.[facility]In the event this information is protected by the Federal Confidentiality of Alcohol and Drug Abuse Patient Records regulations: The Federal rules restrict any use of the information to criminally investigate or prosecute any alcohol or drug abuse patient.[facility] the event this information is protected by the Federal Confidentiality of Alcohol and Drug Abuse Patient Records regulations: The Federal rules restrict any use of the information to criminally investigate or prosecute any alcohol or drug abuse patient.[facility]In the event this information is protected by the Federal Confidentiality of Alcohol and Drug Abuse Patient Records regulations: The Federal rules restrict any use of the information to criminally investigate or prosecute any alcohol or drug abuse patient.[facility] CenterIn the event this information is protected by the Federal Confidentiality of Alcohol and Drug Abuse Patient Records regulations: The Federal rules restrict any use of the information to criminally investigate or prosecute any alcohol or drug abuse patient.[facility] CenterIn the event this information is protected by the Federal Confidentiality of Alcohol and Drug Abuse Patient Records regulations: The Federal rules restrict any use of the information to criminally investigate or prosecute any alcohol or drug abuse patient.[facility] CenterIn the event this information is protected by the Federal Confidentiality of Alcohol and Drug Abuse Patient Records regulations: The Federal rules restrict any use of the information to criminally investigate or prosecute any alcohol or drug abuse patient.[facility] CenterIn the event this information is protected by the Federal Confidentiality of Alcohol and Drug Abuse Patient Records regulations: The Federal rules restrict any use of the information to criminally investigate or prosecute any alcohol or drug abuse patient.[facility] CenterIn the event this information is protected by the Federal Confidentiality of Alcohol and Drug Abuse Patient Records regulations: The Federal rules restrict any use of the information to criminally investigate or prosecute any alcohol or drug abuse patient.[facility] CenterIn the event this information is protected by the Federal Confidentiality of Alcohol and Drug Abuse Patient Records regulations: The Federal rules restrict any use of the information to criminally investigate or prosecute any alcohol or drug abuse patient.[facility] CenterIn the event this information is protected by the Federal Confidentiality of Alcohol and Drug Abuse Patient Records regulations: The Federal rules restrict any use of the information to criminally investigate or prosecute any alcohol or drug abuse patient.[facility] CenterIn the event this information is protected by the Federal Confidentiality of Alcohol and Drug Abuse Patient Records regulations: The Federal rules restrict any use of the information to criminally investigate or prosecute any alcohol or drug abuse patient.[facility] CenterIn the event this information is protected by the Federal Confidentiality of Alcohol and Drug Abuse Patient Records regulations: The Federal rules restrict any use of the information to criminally investigate or prosecute any alcohol or drug abuse patient.[facility] CenterIn the event this information is protected by the Federal Confidentiality of Alcohol and Drug Abuse Patient Records regulations: The Federal rules restrict any use of the information to criminally investigate or prosecute any alcohol or drug abuse patient.[facility] CenterIn the event this information is protected by the Federal Confidentiality of Alcohol and Drug Abuse Patient Records regulations: The Federal rules restrict any use of the information to criminally investigate or prosecute any alcohol or drug abuse patient.[facility] CenterIn the event this information is protected by the Federal Confidentiality of Alcohol and Drug Abuse Patient Records regulations: The Federal rules restrict any use of the information to criminally investigate or prosecute any alcohol or drug abuse patient.[facility] CenterIn the event this information is protected by the Federal Confidentiality of Alcohol and Drug Abuse Patient Records regulations: The Federal rules restrict any use of the information to criminally investigate or prosecute any alcohol or drug abuse patient.[facility]In the event this information is protected by the Federal Confidentiality of Alcohol and Drug Abuse Patient Records regulations: The Federal rules restrict any use of the information to criminally investigate or prosecute any alcohol or drug abuse patient.[facility] CenterIn the event this information is protected by the Federal Confidentiality of Alcohol and Drug Abuse Patient Records regulations: The Federal rules restrict any use of the information to criminally investigate or prosecute any alcohol or drug abuse patient.[facility] CenterIn the event this information is protected by the Federal Confidentiality of Alcohol and Drug Abuse Patient Records regulations: The Federal rules restrict any use of the information to criminally investigate or prosecute any alcohol or drug abuse patient.[facility] CenterIn the event this information is protected by the Federal Confidentiality of Alcohol and Drug Abuse Patient Records regulations: The Federal rules restrict any use of the information to criminally investigate or prosecute any alcohol or drug abuse patient.[facility] CenterIn the event this information is protected by the Federal Confidentiality of Alcohol and Drug Abuse Patient Records regulations: The Federal rules restrict any use of the information to criminally investigate or prosecute any alcohol or drug abuse patient.[facility] CenterIn the event this information is protected by the Federal Confidentiality of Alcohol and Drug Abuse Patient Records regulations: The Federal rules restrict any use of the information to criminally investigate or prosecute any alcohol or drug abuse patient.[facility] CenterIn the event this information is protected by the Federal Confidentiality of Alcohol and Drug Abuse Patient Records regulations: The Federal rules restrict any use of the information to criminally investigate or prosecute any alcohol or drug abuse patient.[facility] CenterIn the event this information is protected by the Federal Confidentiality of Alcohol and Drug Abuse Patient Records regulations: The Federal rules restrict any use of the information to criminally investigate or prosecute any alcohol or drug abuse patient.[facility] CenterIn the event this information is protected by the Federal Confidentiality of Alcohol and Drug Abuse Patient Records regulations: The Federal rules restrict any use of the information to criminally investigate or prosecute any alcohol or drug abuse patient.[facility] CenterIn the event this information is protected by the Federal Confidentiality of Alcohol and Drug Abuse Patient Records regulations: The Federal rules restrict any use of the information to criminally investigate or prosecute any alcohol or drug abuse patient.[facility] CenterIn the event this information is protected by the Federal Confidentiality of Alcohol and Drug Abuse Patient Records regulations: The Federal rules restrict any use of the information to criminally investigate or prosecute any alcohol or drug abuse patient.[facility] CenterIn the event this information is protected by the Federal Confidentiality of Alcohol and Drug Abuse Patient Records regulations: The Federal rules restrict any use of the information to criminally investigate or prosecute any alcohol or drug abuse patient.[facility] CenterIn the event this information is protected by the Federal Confidentiality of Alcohol and Drug Abuse Patient Records regulations: The Federal rules restrict any use of the information to criminally investigate or prosecute any alcohol or drug abuse patient.[facility] the event this information is protected by the Federal Confidentiality of Alcohol and Drug Abuse Patient Records regulations: The Federal rules restrict any use of the information to criminally investigate or prosecute any alcohol or drug abuse patient.[facility] Center[facility] the event this information is protected by the Federal Confidentiality of Alcohol and Drug Abuse Patient Records regulations: The Federal rules restrict any use of the information to criminally investigate or prosecute any alcohol or drug abuse patient.[facility] Center[facility] the event this information is protected by the Federal Confidentiality of Alcohol and Drug Abuse Patient Records regulations: The Federal rules restrict any use of the information to criminally investigate or prosecute any alcohol or drug abuse patient.[facility] Center[facility] the event this information is protected by the Federal Confidentiality of Alcohol and Drug Abuse Patient Records regulations: The Federal rules restrict any use of the information to criminally investigate or prosecute any alcohol or drug abuse patient.[facility] CenterIn the event this information is protected by the Federal Confidentiality of Alcohol and Drug Abuse Patient Records regulations: The Federal rules restrict any use of the information to criminally investigate or prosecute any alcohol or drug abuse patient.[facility] CenterIn the event this information is protected by the Federal Confidentiality of Alcohol and Drug Abuse Patient Records regulations: The Federal rules restrict any use of the information to criminally investigate or prosecute any alcohol or drug abuse patient.[facility] CenterIn the event this information is protected by the Federal Confidentiality of Alcohol and Drug Abuse Patient Records regulations: The Federal rules restrict any use of the information to criminally investigate or prosecute any alcohol or drug abuse patient.[facility] CenterIn the event this information is protected by the Federal Confidentiality of Alcohol and Drug Abuse Patient Records regulations: The Federal rules restrict any use of the information to criminally investigate or prosecute any alcohol or drug abuse patient.[facility] CenterIn the event this information is protected by the Federal Confidentiality of Alcohol and Drug Abuse Patient Records regulations: The Federal rules restrict any use of the information to criminally investigate or prosecute any alcohol or drug abuse patient.[facility] Reason for Visit (unrecogniz ed section and content) Reason Comments Lab Orders Reason Comments Results Reason Comments Future Appointment Reason Comments Consult Hospital Follow-Up/C olitis Reason Comments Follow Up Gyant interaction - F/U - attempt made. No answer. Specialty Diagnoses / Procedures Referred By Contac t Referred To Contact Diagnoses Ulcerative pancolitis with complication (HCC) Procedures INJ. AVSOLA, [address] [place] [address] [place] [address] Erlin Treat [address] [place] [address] Referral ID Status Reason Start Date Expiration Date V isits Requested Visits Authorized [id number] Authorized 04/07/2023 04/07/2024 8 8 Specialty Diagnoses / Procedures Referred By Contac t Referred To Contact Diagnoses Ulcerative pancolitis with complication (HCC) Procedures INJ. AVSOLA, 10 [place] [address] [place] [address] Erlin Treat [address] [place] [address] Reason Comments New Patient Ulcerative colitis, Sigmoidoscopy/ Path 04/01/23 Reason Onset Date Comments Refill Request 02/09/2024 Reason Onset Date Comments Refill Request 04/06/2024 Follow Up 04/06/2024 Reason Comments IBD Flare Reason Onset Date Comments Med Refill 08/31/2024 Reason Onset Date Comments SPP Inflammatory Conditions - Treatment Referral 09/06/2024 [facility] OBI Insurance Authorization 09/06/2024 LUZ kirkpatrick ssion pending Reason Comments Insurance Authorization Peer to Wilmer Cunningham RN # [id number], VENITA MILLER, [id number] MAK AVENDAÑO Reason Onset Date Comments Med Refill 09/15/2024 Reason Comments Anemia Specialty Diagnoses / Procedures Referred By Contac t Referred To Contact Hematology Diagnoses Iron deficiency anemia, unspecified iron deficiency anemia type Procedures OFFICE/OUTPATIENT [facility] 60 MINUTES AMB REFERRAL TO HEMATOLOGY Beck Tee Jr., DO [address] [place] [address] Michael Lizarraga MD [address] [place] [address] [place] [address] Referral ID Status Reason Start Date Expiration Date V isits Requested Visits Authorized [id number] Outside PCP 08/31/2024 02/27/2025 1 1 Specialty Diagnoses / Procedures Referred By Contac t Referred To Contact Diagnoses Iron deficiency anemia due to chronic blood loss Ulcerative pancolitis without complication (HCC) Procedures IRON SUCROSE INJECTION PER 1 MG Dilma Montes, JASPAL [address] [place] [address] Erlin Treat [address] [place] [address] Referral ID Status Reason Start Date Expiration Date Visits Requested Visits Authorized [id number] Authorized Patient Cleared - Admin/Chairm an/Director advise to proceed or did not respond 03/19/2025 99 99 Reason Comments Patient Update Insurance Authorization Reason Onset Date Comments Med Refill 09/27/2024 Specialty Diagnoses / Procedures Referred By Contac t Referred To Contact Diagnoses Ulcerative pancolitis without complication (HCC) Procedures INJECTION, RISANKIZUMAB-RZAA, INTRAVENOUS, 1 [place] [address] [place] [address] Erlin Treat [address] [place] [address] Referral ID Status Reason Start Date Expiration Date V isits Requested Visits Authorized [id number] Authorized 09/02/2024 11/25/2024 1 3 Reason Onset [...] (HCC) Procedures CONSULT TO INFECTIOUS DISEASES OFFICE/OUTPATIENT [facility] [address] [place] [address] [place] [address] Referral ID Status Reason Start Date Expiration Date V isits Requested Visits Authorized [id number] Closed PCP Requested Referral 10/15/2024 10/08/2025 1 [...] Reason Onset Date Comments Med Refill 01/14/2025 Reason Comments Well Women Visit Reason Onset Date Comments SPP Inflammatory Conditions - Medication Refill 02/22/2025 [place] [facility] Reason Onset Date Comments Med Refill 02/28/2025 Reason Comments IBD Follow Up Care Teams (unrecognized sec tion and content) Team Status: Active Member Role Status Dates Vanna Tee DO Primary Care Provider Active Team Status: Inactive Member Role Status Dates Vanna Tee DO Primary Care Provider Active Start: April 24, 2024 End: April 24, 2024 Jasmin Patterson APRN Attending Provider Active S tart: April 24, 2024 End: April 24, 2024 Flight Service Specialist Relationship Specialty Start Date End Date Beck Tee Jr. [address] [place] [phone] PCP - General Family Practice 12/25/21 Flight Service Specialist Relationship Specialty Start Date End Date Beck Tee Jr. [address] [place] [phone] PCP - General Family Practice 12/25/21 Flight Service Specialist Relationship Specialty Start Date End Date Beck Tee Jr. [address] [place] [phone] PCP - General Family Practice 12/25/21 Flight Service Specialist Relationship Specialty Start Date End Date Beck Tee Jr. [address] [place] [phone] PCP - General Family Practice 12/25/21 Team Status: Inactive Member Role Status Dates Vanna Tee DO Primary Care Provider Active RYNE StewartC Attending Provider Active Flight Service Specialist Relationship Specialty Start Date End Date Beck Tee Jr. [address] [place] [address] PCP - General Family Medicine 12/25/21 Jacki Baird CNP [address] [place] [address] Referring Family Medicine 03/26/23 Flight Service Specialist Relationship Specialty Start Date End Date Beck Tee Jr. [address] [place] [phone] PCP - General Family Medicine 12/25/21 Jacki Baird, MANAGER [employer] [address] [place] [address] Referring Family Medicine 03/26/23 Flight Service Specialist Relationship Specialty Start Date End Date Beck Tee Jr. [address] [place] [address] PCP - General Family Medicine 12/25/21 Jacki Baird, MA[employer] [address] [place] [address] Referring Family Medicine 03/26/23 Flight Service Specialist Relationship Specialty Start Date End Date Beck Tee JrElian [address] [place] [address] PCP - General Family Medicine 12/25/21 Jacki Baird, [employer] [address] [place] [address] Referring Family Medicine 03/26/23 Flight Service Specialist Relationship Specialty Start Date End Date Beck Tee , DO [address] [place] [address] PCP - General Family Medicine 12/25/21 Jacki Baird, [employer] [address] [place] [address] Referring Family Medicine 03/26/23 Flight Service Specialist Relationship Specialty Start Date End Date Beck Tee , DO [address] [place] [address] PCP - General Family Medicine 12/25/21 Jacki Baird, [employer] [address] [place] [address] Referring Family Medicine 03/26/23 Flight Service Specialist Relationship Specialty Start Date End Date PiyushlibbyBeck Jr., DO [address] [place] [phone] PCP - General Family Medicine 12/25/21 Jacki Baird, [employer] [address] [place] [address] Referring Family Medicine 03/26/23 Flight Service Specialist Relationship Specialty Start Date End Date Beck Tee Jr., DO [address] [place] [phone] PCP - General Family Medicine 12/25/21 Jakci Baird, MANAGER [employer] [address] [place] [address] Referring Family Medicine 03/26/23 Flight Service Specialist Relationship Specialty Start Date End Date RandalBeck Jr., DO [address] [place] [phone] PCP - General Family Medicine 12/25/21 Jacki Baird, MANA[employer] [address] [place] [address] Referring Family Medicine 03/26/23 Flight Service Specialist Relationship Specialty Start Date End Date Beck Tee Jr., DO [address] [place] [phone] PCP - General Family Medicine 12/25/21 Jacki Baird, MA[employer] [address] [place] [address] Referring Family Medicine 03/26/23 Flight Service Specialist Relationship Specialty Start Date End Date Beck Tee Jr., DO [address] [place] [phone] PCP - General Family Medicine 12/25/21 Jacki Baird, MA[employer] [address] [place] [address] Referring Family Medicine 03/26/23 Flight Service Specialist Relationship Specialty Start Date End Date Beck Tee Jr., DO [address] [place] [phone] PCP - General Family Medicine 12/25/21 Jacki Baird, MA[employer] [address] [place] [address] Referring Family Medicine 03/26/23 Flight Service Specialist Relationship Specialty Start Date End Date Beck Tee, DO [address] [place] [address] PCP - General Family Medicine 04/23/23 Flight Service Specialist Relationship Specialty Start Date End Date Beck Tee Jr., DO [address] [place] [address] PCP - General Family Medicine 12/25/21 Jacki Baird, [employer] [address] [place] [address] Referring Family Medicine 03/26/23 Flight Service Specialist Relationship Specialty Start Date End Date Beck Tee Jr., DO [address] [place] [phone] PCP - General Family Medicine 12/25/21 Jacki Baird, MANAGER [employer] [address] [place] [address] Referring Family Medicine 03/26/23 Flight Service Specialist Relationship Specialty Start Date End Date Beck Tee, DO [address] [place] [address] PCP - General Family Medicine 04/23/23 Flight Service Specialist Relationship Specialty Start Date End Date Beck Tee Jr., DO [address] [place] [phone] PCP - General Family Medicine 12/25/21 Jacki Baird, MANAGER [employer] [address] [place] [address] Referring Family Medicine 03/26/23 Flight Service Specialist Relationship Specialty Start Date End Date Beck Tee Jr., DO [address] [place] [phone] PCP - General Family Medicine 12/25/21 Jacki Baird, MANAGER [employer] [address] [place] [address] Referring Family Medicine 03/26/23 Flight Service Specialist Relationship Specialty Start Date End Date Beck Tee Jr., DO [address] [place] [address] PCP - General Family Medicine 12/25/21 Jacki Baird, MANA[employer] [address] [place] [address] Referring Family Medicine 03/26/23 Antoni Palmer [address] [place] [address] Obstetrics 09/15/24 Flight Service Specialist Relationship Specialty Start Date End Date Beck Tee Jr., DO [address] [place] [phone] PCP - General Family Medicine 12/25/21 Jacki Baird, MANAGER [employer] [address] [place] [address] Referring Family Medicine 03/26/23 Antoni Palmer [address] [place] [address] Obstetrics 09/15/24 Flight Service Specialist Relationship Specialty Start Date End Date Beck Tee Jr., DO [address] [place] [address] PCP - General Family Medicine 12/25/21 Jacki Baird, MANAGER [employer] [address] [place] [address] Referring Family Medicine 03/26/23 Antoni Palmer [address] [place] [address] Obstetrics 09/15/24 Flight Service Specialist Relationship Specialty Start Date End Date Beck Tee Jr., DO [address] [place] [phone] PCP - General Family Medicine 12/25/21 Jacki Baird, MANAGER [employer] [address] [place] [address] Referring Family Medicine 03/26/23 Antoni Palmer [address] [place] [address] Obstetrics 09/15/24 Flight Service Specialist Relationship Specialty Start Date End Date Beck Tee Jr., DO [address] [place] [phone] PCP - General Family Medicine 12/25/21 Jacki Baird, MANA[employer] [address] [place] [address] Referring Family Medicine 03/26/23 Antoni Palmer [address] [place] [address] Obstetrics 09/15/24 Flight Service Specialist Relationship Specialty Start Date End Date Beck Tee Jr., DO [address] [place] [address] PCP - General Family Medicine 12/25/21 Jacki Baird, MANAGER [employer] [address] [place] [address] Referring Family Medicine 03/26/23 Antoni Palmer [address] [place] [address] Obstetrics 09/15/24 Flight Service Specialist Relationship Specialty Start Date End Date Beck Tee Jr., DO [address] [place] [phone] PCP - General Family Medicine 12/25/21 Jacki Baird, MANAGER [employer] [address] [place] [address] Referring Family Medicine 03/26/23 Antoni Palmer [address] [place] [address] Obstetrics 09/15/24 Flight Service Specialist Relationship Specialty Start Date End Date Beck Tee Jr., DO [address] [place] [phone] PCP - General Family Medicine 12/25/21 Jacki Baird, MANA[employer] [address] [place] [address] Referring Family Medicine 03/26/23 Antoni Palmer [address] [place] [address] Obstetrics 09/15/24 Flight Service Specialist Relationship Specialty Start Date End Date Beck Tee Jr., DO [address] [place] [address] PCP - General Family Medicine 12/25/21 Jacki Baird, MANAGER [employer] [address] [place] [address] Referring Family Medicine 03/26/23 Antoni Palmer [address] [place] [address] Obstetrics 09/15/24 Flight Service Specialist Relationship Specialty Start Date End Date Beck Tee, DO [address] [place] [address] PCP - General Family Medicine 04/23/23 Flight Service Specialist Relationship Specialty Start Date End Date Beck Tee Jr., DO [address] [place] [phone] PCP - General Family Medicine 12/25/21 Jacki Baird, MANA[employer] [address] [place] [address] Referring Family Medicine 03/26/23 Antoni Palmer [address] [place] [address] Obstetrics 09/15/24 Flight Service Specialist Relationship Specialty Start Date End Date Beck Tee Jr., DO [address] [place] [phone] PCP - General Family Medicine 12/25/21 Jacki Baird, MANAGER [employer] [address] [place] [address] Referring Family Medicine 03/26/23 Antoni Palmer [address] [place] [address] Obstetrics 09/15/24 Flight Service Specialist Relationship Specialty Start Date End Date Beck Tee Jr., DO [address] [place] [address] PCP - General Family Medicine 12/25/21 Jacki Baird, MANAGER [employer] [address] [place] [address] Referring Family Medicine 03/26/23 Antoni Palmer [address] [place] [address] Obstetrics 09/15/24 Flight Service Specialist Relationship Specialty Start Date End Date Beck Tee Jr., DO [address] [place] [phone] PCP - General Family Medicine 12/25/21 Jacki Baird, MANAGER [employer] [address] [place] [address] Referring Family Medicine 03/26/23 Antoni Palmer [address] [place] [address] Obstetrics 09/15/24 Flight Service Specialist Relationship Specialty Start Date End Date Beck Tee DO [address] [place] [address] PCP - General Family Medicine 04/23/23 Flight Service Specialist Relationship Specialty Start Date End Date Beck Tee DO [address] [place] [address] PCP - General Family Medicine 04/23/23 Flight Service Specialist Relationship Specialty Start Date End Date Beck Tee DO [address] [place] [address] PCP - General Family Medicine 04/23/23 Flight Service Specialist Relationship Specialty Start Date End Date Beck Tee Jr., DO [address] [place] [phone] PCP - General Family Medicine 12/25/21 Jacki Baird, MANAGER [employer] [address] [place] [address] Referring Family Medicine 03/26/23 Antoni Palmer [address] [place] [address] Obstetrics 09/15/24 Flight Service Specialist Relationship Specialty Start Date End Date Beck Tee Jr., DO [address] [place] [phone] PCP - General Family Medicine 12/25/21 Jacki Baird, MANAGER [employer] [address] [place] [address] Referring Family Medicine 03/26/23 Antoni Palmer [address] [place] [address] Obstetrics 09/15/24 Flight Service Specialist Relationship Specialty Start Date End Date Beck Tee Jr., DO [address] [place] [phone] PCP - General Family Medicine 12/25/21 Jacki Baird, MANAGER [employer] [address] [place] [address] Referring Family Medicine 03/26/23 Antoni Palmer [address] [place] [address] Obstetrics 09/15/24 Flight Service Specialist Relationship Specialty Start Date End Date Beck Tee Jr., DO [address] [place] [phone] PCP - General Family Medicine 12/25/21 Jacki Baird, MANAGER [employer] [address] [place] [address] Referring Family Medicine 03/26/23 Antoni Palmer [address] [place] [address] Obstetrics 09/15/24 Flight Service Specialist Relationship Specialty Start Date End Date Beck Tee Jr., DO [address] [place] [address] PCP - General Family Medicine 12/25/21 Jacki Baird, MANAGER [employer] [address] [place] [address] Referring Family Medicine 03/26/23 Antoni Palmer [address] [place] [address] Obstetrics 09/15/24 Flight Service Specialist Relationship Specialty Start Date End Date Beck Tee DO [address] [place] [address] PCP - General Family Medicine 04/23/23 Flight Service Specialist Relationship Specialty Start Date End Date Beck Tee DO [address] [place] [address] PCP - General Family Medicine 04/23/23 Flight Service Specialist Relationship Specialty Start Date End Date Beck Tee DO [address] [place] [address] PCP - General Family Medicine 04/23/23 Flight Service Specialist Relationship Specialty Start Date End Date Beck Tee DO [address] [place] [address] PCP - General Family Medicine 04/23/23 Flight Service Specialist Relationship Specialty Start Date End Date Beck Tee, [address] [place] [address] PCP - General Family Medicine 04/23/23 Flight Service Specialist Relationship Specialty Start Date End Date Beck Tee, DO [address] [place] [address] PCP - General Family Medicine 04/23/23 Flight Service Specialist Relationship Specialty Start Date End Date Beck Tee Jr., DO [address] [place] [address] PCP - General Family Medicine 12/25/21 Jacki Baird, MANAGER [employer] [address] [place] [address] Referring Family Medicine 03/26/23 Antoni Palmer [address] [place] [address] Obstetrics 09/15/24 Flight Service Specialist Relationship Specialty Start Date End Date Beck Tee Jr., DO [address] [place] [phone] PCP - General Family Medicine 12/25/21 Jacki Baird, MANAGER [employer] [address] [place] [address] Referring Family Medicine 03/26/23 Antoni Palmer [address] [place] [address] Obstetrics 09/15/24 Flight Service Specialist Relationship Specialty Start Date End Date Beck Tee , DO [address] [place] [address] PCP - General Family Medicine 12/25/21 Jacki Baird, MANAGER [employer] [address] [place] [address] Referring Family Medicine 03/26/23 Antoni Palmer [address] [place] [address] Obstetrics 09/15/24 Flight Service Specialist Relationship Specialty Start Date End Date Randal Beck Clay Ruiz, DO [address] [place] [address] PCP - General Family Medicine 12/25/21 Jacki Baird, MANA[employer] [address] [place] [address] Referring Family Medicine 03/26/23 Antoni Palmer [address] [place] [address] Obstetrics 09/15/24 INFORMATION SOURCE (unrecogn ized section and content) DATE CREATED AUTHOR 06/07/2022 [facility] dical Specialist DATE CREATED AUTHOR AUTHOR'S ORGANIZ ATION 01/04/2023 [facility] DATE CREATED AUTHOR AUTHOR'S ORGANIZ ATION 02/24/2023 [facility] DATE CREATED AUTHOR AUTHOR'S ORGANIZ ATION 11/21/2024 [facility] DATE CREATED AUTHOR AUTHOR'S ORGANIZ ATION 01/26/2025 [facility] dical Specialists EPIC DATE CREATED AUTHOR AUTHOR'S ORGANIZ ATION 03/12/2025 [facility] DATE CREATED AUTHOR AUTHOR'S ORGANIZ ATION 03/13/2025 [facility] Goals (unrecognized section and content) Goals may [...] BE BASED ON THE PRIMARY CLINICAL RECORDS. [facility] [employer] [facility]. provides no warranty or guarantee of the accuracy or completeness of information in this document.
--- NOTE | 2025-03-13 19:34 | ED_ITS ---
HPI HPI - General Adult General Chief complaint: Headache Stated complaint: MIGRAINE Time Seen by Provider: 03/13/25 19:34 Source: patient Mode of arrival: walk-in Limitations: no limitations History of Present Illness HPI narrative: 44-year-old female presents for frontal headache. Started within the last day and was not preceded by any trauma. She has not had any localized weakness or fever. This is much like her migraine headaches in the past. She took Tylenol but it did not seem to help. She states in the past she has gotten an IM shot that has helped but she does not know what the medication is. No fever or neck stiffness or localized weakness. The pain is moderate to severe and continuous. Related Data Previous Rx's ?Medication ?Instructions ?Recorded bpbrtajzeb-[id number]-mtzpsccw 1 cap PO Q6H PRN pain 5 days #20 03/13/25 50 mg-300 mg-40 mg capsule caps (Fioricet) Allergies Allergy/AdvReac Type Severity Reaction Status Date / Time No Known Drug Allergies Allergy Verified 03/13/25 19:21 Opioid HPI Opioid Management Most Recent Opioid Data: No Data to Display Review of Systems ROS Narrative A ten point review of systems is negative except as noted above. PFSH PFSH Social History Little interest or pleasure in doing things: not at all Feeling down, depressed, or hopeless: not at all Exam Narrative Exam Narrative: Nurses note and vital signs reviewed and patient is not hypoxic. General: The patient appears well and in no apparent distress. Patient is resting comfortably on cart. Skin: Warm, dry, no pallor noted. There is no rash noted. Head: Normocephalic, atraumatic; neck supple, no nuchal rigidity Eye: Normal conjunctiva, no drainage, EOMI. PERRL Ears, Nose, Mouth, and Throat: oral mucosa is moist. Nares patent. Cardiovascular: Regular Rate and Rhythm Respiratory: Patient is in no distress, no accessory muscle use, lungs are clear to auscultation, no wheezing, rales or rhonchi Back: non-tender GI: Soft and nontender Musculoskeletal: The patient has no evidence of calf tenderness, no pitting edema, symmetrical pulses noted bilaterally Neurological: A&O x4, normal speech; upper and lower extremity strength symmetric and intact Psychiatric: Cooperative Constitutional Vital Signs, click to edit/add: Last Vital Signs Temp 98.2 F 03/13/25 19:21 Pulse 98 H 03/13/25 19:21 Resp 16 03/13/25 19:21 BP 150/94 H 03/13/25 19:21 Pulse Ox 98 03/13/25 19:21 O2 Del Method Room Air 03/13/25 19:21 Course Vital Signs Vital signs: Vital Signs Temperature 98.2 F 03/13/25 19:21 Pulse Rate 98 H 03/13/25 19:21 Respiratory Rate 16 03/13/25 19:21 Blood Pressure 150/94 H 03/13/25 19:21 Pulse Oximetry 98 03/13/25 19:21 Oxygen Delivery Method Room Air 03/13/25 19:21 Temperature 98.2 F 03/13/25 19:21 Pulse Rate 98 H 03/13/25 19:21 Respiratory Rate 16 03/13/25 19:21 Blood Pressure 150/94 H 03/13/25 19:21 Pulse Oximetry 98 03/13/25 19:21 Oxygen Delivery Method Room Air 03/13/25 19:21 Medical Decision Making MDM Narrative Medical decision making narrative: She was given IM Toradol and ODT Zofran and is prescribed Fioricet. Treatment diagnosis and follow-up were discussed with the patient. I have no clinical suspicion of acute intracranial pathology Differential Diagnosis Differential Diagnosis: Migraine headache, nonspecific headache, intracranial hemorrhage Discharge Plan Discharge Chief Complaint: Headache Clinical Impression: Migraine Patient Disposition: Home, Self-Care Time of Disposition Decision: 20:03 Condition: Good Mode of Transportation: Private Vehicle Prescriptions / Home Meds: New pvuozqljxt-rogpjbrwcxahj-mwkl [Fioricet] 50-300-40 mg capsule 1 cap PO Q6H PRN (Reason: pain) 5 Days Qty: 20 0RF Print Language: Maltese Instructions: Migraine Headache (ED) Additional Instructions: You were given intramuscular Toradol today. Referrals: Bryce PATEL [Primary Care Provider] - 1 week
[2025-03-13] MEDS: KETOROLAC TROMETHAMINE 60 MG/2 ML VIAL IM (19:54)
[2025-03-13] MEDS: ONDANSETRON 4 MG RAPDIS TABLET SL (19:54)
== END 2025-03-13 20:11 | disposition home or self-care (01) ==
PROVIDERS: Emergency Provider Emergency Medicine; PCP Family Medicine
DX: G43.909 Migraine, unspecified, not intractable, without status migrainosus (principal)
CPT/HCPCS: 96372; 99284; J1885; Q0162